=== PATIENT | female | born 1950 | race Caucasian/White ===

== ENCOUNTER 2018-07-14 05:06 | Inpatient (IN) | payer MEDICARE ==
--- NOTE | 2018-07-14 05:17 | ER Document Report ---
Doctor's Note Notes: 07/14/18 05:15 I performed a triage evaluation the patient. Patient is a 68-year-old female with some form of liver failure per report from paramedics who presents via EMS due to altered mental status. She is currently visiting from out of town. Family is on their way to the hospital currently. History is very limited as the patient is altered and will moan and sometimes yell but will not give me exact answers to my questions. She is lying on the bed with her eyes closed. She will sometimes push me away with her arms. She does not appear to have any pain when I palpate over her abdomen.'s are equal and reactive to light. Lung grimm are clear. This time of ordered blood work including ammonia level. I have ordered CT scan of the head. A voided urine testing as well as chest x-ray due to her altered mental status. Patient will be kept on potline monitor. Dictation of this chart was performed using voice recognition software; therefore, there may be some unintended grammatical errors.
[2018-07-14 05:47] LABS: ABSOLUTE EOSINOPHILS # (AUTO) 0.1 10^3/uL (0.0-0.6); ABSOLUTE LYMPHOCYTES (AUTO) 0.8 10^3/uL (0.5-4.7); ABSOLUTE MONOCYTES (AUTO) 0.4 10^3/uL (0.1-1.4); ABSOLUTE NEUT (AUTO) 2.1 10^3/uL (1.7-8.2); BASOPHILS % (AUTO) 0.4 % (0-2); EOSINOPHILS % (AUTO) 4.2 % (0-6); HEMATOCRIT 25.4 % (36.0-47.0); HEMOGLOBIN 8.4 g/dL (12.0-15.5); LYMPHOCYTES % (AUTO) 22.9 % (13-45); MEAN CORPUSCULAR HEMOGLOBIN 28.2 pg (27.0-33.4); MEAN CORPUSCULAR VOLUME 85 fl (80-97); MONOCYTES % (AUTO) 10.5 % (3-13); PLATELET COUNT 126 10^3/uL (150-450); RED BLOOD COUNT 2.98 10^6/uL (3.72-5.28); RED CELL DISTRIBUTION WIDTH 16.3 % (11.5-14.0); TOTAL CELLS COUNTED % (AUTO) 100 %; WHITE BLOOD COUNT 3.4 10^3/uL (4.0-10.5)
[2018-07-14 05:48] LABS: VENOUS BLOOD BASE EXCESS 3.2 mmol/L; VENOUS BLOOD HCO3 26.3 mmol/L (20-32); VENOUS BLOOD PCO2 34.2 mmHg (35-63); VENOUS BLOOD PH 7.5 (7.30-7.42)
[2018-07-14 06:00] LABS: INTERNATIONAL RATION (INR) 1.03; PROTHROMBIN TIME 14.1 SEC (11.4-15.4)
[2018-07-14 06:04] LABS: ALANINE AMINOTRANSFERASE 33 U/L (9-52); ALBUMIN 2.9 g/dL (3.5-5.0); ALKALINE PHOSPHATASE 144 U/L (38-126); ANION GAP 8 (5-19); ASPARTATE AMINO TRANSFERASE 30 U/L (14-36); BILIRUBIN,DIRECT 1.1 mg/dL (0.0-0.4); BILIRUBIN,TOTAL 1.7 mg/dL (0.2-1.3); BLOOD UREA NITROGEN 32 mg/dL (7-20); CALCIUM 9.3 mg/dL (8.4-10.2); CARBON DIOXIDE 26 mmol/L (22-30); CHLORIDE 107 mmol/L (98-107); GLUCOSE 161 mg/dL (75-110); POTASSIUM 4.4 mmol/L (3.6-5.0); SODIUM 141.4 mmol/L (137-145); TOTAL PROTEIN 6.4 g/dL (6.3-8.2)
[2018-07-14] MEDS ORDERED: LACTULOSE SYRUP 20 GM/30 ML UDCUP PR ONE (06:25)
[2018-07-14 07:16] LABS: APPEARANCE,URINE SLIGHTLY-CLOUDY; BILIRUBIN,URINE NEGATIVE (NEGATIVE); COLOR,URINE YELLOW; GLUCOSE, URINE NEGATIVE (NEGATIVE); KETONES,URINE NEGATIVE (NEGATIVE); LEUKOCYTE ESTERASE,URINE NEGATIVE (NEGATIVE); NITRITE,URINE NEGATIVE (NEGATIVE); PROTEIN,URINE NEGATIVE (NEGATIVE); URINE SPECIFIC GRAVITY 1.014; UROBILINOGEN,URINE NEGATIVE mg/dL (<2.0)
--- NOTE | 2018-07-14 07:16 | RADIOLOGY REPORT (SQ) ---
EXAM DESCRIPTION: CT HEAD WITHOUT IV CONTRAST COMPLETED DATE/TME: 07/14/2018 05:13 CLINICAL HISTORY: altered mental status COMPARISON: None available TECHNIQUE: Axial CT of the head obtained from the skull apex to the skull base without contrast. FINDINGS: No acute intracranial hemorrhage identified. No mass, mass effect, shift of the midline, abnormal extra-axial fluid collection or CT evidence of acute ischemic change identified. The ventricular system is not enlarged. Scattered areas of hypodensity throughout the supratentorial white matter are nonspecific and may be related to chronic small vessel ischemic change. Mucosal thickening of the right maxillary sinus. No skull fracture identified. Visualized orbits and globes are unremarkable. Atherosclerotic calcification of the intracranial internal carotid arteries. DLP: 937.36 mGy-cm IMPRESSION: 1. No acute intracranial abnormality by CT criteria. This exam was performed according to our departmental dose-optimization program, which includes automated exposure control, adjustment of the mA and/or kV according to patient size and/or use of iterative reconstruction technique.
--- NOTE | 2018-07-14 07:24 | RADIOLOGY REPORT (SQ) ---
EXAM DESCRIPTION: XR CHEST 1 VIEW COMPLETED DATE/TME: 07/14/2018 05:14 CLINICAL HISTORY: altered mental status COMPARISON: None. FINDINGS: Single frontal view of the chest. Cardiomediastinal silhouette: Normal size and contour. Lungs: Right basilar opacity and small right pleural effusion. Leads overlie the chest. No pneumothorax. Bones: No acute osseous abnormality. Upper abdomen: No abnormality identified. IMPRESSION: 1. Bibasilar airspace opacity concerning for pneumonia with small right pleural effusion.
[2018-07-14] MEDS ORDERED: CEFTRIAXONE 1 GM/D5W RTU 1 GM/50 ML RTUPB IV ONE (07:46)
[2018-07-14] MEDS ORDERED: AZITHROMYCIN INJ 500 MG VIAL IV ONE (07:46)
--- NOTE | 2018-07-14 08:10 | ER Document Report ---
ED General - General Chief Complaint: Unresponsive Stated Complaint: ALTERED MENTAL STATUS Time Seen by Provider: 07/14/18 05:13 TRAVEL OUTSIDE OF THE [place] IN LAST 30 DAYS: No - HPI Notes: Patient is a 68-year-old female with an extensive medical history, primary historians are her and son. Patient has had altered mental status and declined cognition over the last 3 days. She is denied any significant pain. Patient's states that he found boxes of protein bars, he believes that something is wrong with her liver as a result. He also notes that she is not always terribly compliant with taking her lactulose. He states that over the last 3 days he is given it to her personally, but cannot reliably tell me as to whether or not she was taking her medications as prescribed prior to this. No known fevers. She has been coughing. No other acute complaints or concerns. - Related Data Allergies/Adverse Reactions: No Known Allergies Allergy (Unverified 07/14/18 06:49) Past Medical History - General Information source: Relative - Social History Smoking Status: Never Smoker Chew tobacco use (# tins/day): No Frequency of alcohol use: None Drug Abuse: None Family History: Reviewed & Not Pertinent Patient has suicidal ideation: No Patient has homicidal ideation: No Pulmonary Medical History: Reports: Hx COPD Neurological Medical History: Reports: None Endocrine Medical History: Reports: Hx Diabetes Mellitus Type 2, Hx Hypothyroidism Renal/ Medical History: Denies: Hx Peritoneal Dialysis GI Medical History: Reports: Hx Cirrhosis, Hx Gastroesophageal Reflux Disease, Other - Esophageal varices Past Surgical History: Reports: Hx Section - x2, Hx Cholecystectomy, Hx Herniorrhaphy, Hx Hysterectomy, Other - Tips procedure Review of Systems - Review of Systems Constitutional: See HPI EENT: No symptoms reported Cardiovascular: No symptoms reported Respiratory: See HPI Gastrointestinal: No symptoms reported Genitourinary: No symptoms reported Musculoskeletal: No symptoms reported Skin: No symptoms reported Neurological/Psychological: See HPI Physical Exam - Vital signs Vitals: Pulse Ox 100 07/14/18 05:09 - Notes Notes: 68-year-old female, gaunt in appearance, no acute distress. Head is normocephalic and atraumatic. Pupils are equal, round, reactive to light. All mucosas moist. Heart is regular rate rhythm, lungs show diminished breath sounds at the bases bilaterally. Abdomen is soft, nontender, normal active bowel sounds. Extremities without cyanosis or clubbing. No posterior calf tenderness. She does have 1+ pitting pretibial edema. Patient is drowsy. She will open her eyes to loud verbal stimuli. She moves all 4 extremities spontaneously. No gross facial asymmetry. Course - Re-evaluation Re-evalutation: 07/14/18 08:09 Patient presents to the emergency department for evaluation. She is found to be initially hypothermic. He is placed on a bear hugger. Laboratory investigations were obtained. She is found to be pancytopenic, consistent with her cirrhotic history. Her creatinine is normal. Her ammonia level is signifi cantly elevated. She is given rectal lactulose here. Further work-up also revealed a pneumonia. Blood cultures were obtained. She was given Rocephin, Zithromax. I spoke with Dr. Rubi, will admit the patient for further care. - Vital Signs Vital signs: Temp Pulse Resp BP Pulse Ox 96.6 F L 13 101/43 L 99 07/14/18 07:01 07/14/18 07:01 07/14/18 07:00 07/14/18 07:01 - Laboratory Result Diagrams: 07/14/18 05:20 07/14/18 05:20 Laboratory results interpreted by me: 07/14/18 07/14/18 07/14/18 05:20 05:20 05:20 WBC 3.4 L RBC 2.98 L Hgb 8.4 L Hct 25.4 L RDW 16.3 H Plt Count 126 L VBG pH VBG pCO2 BUN 32 H Est GFR (Non-Af Amer) 53 L Glucose 161 H Total Bilirubin 1.7 H Direct Bilirubin 1.1 H Alkaline Phosphatase 144 H Ammonia 166.1 H Albumin 2.9 L Urine Ascorbic Acid 07/14/18 07/14/18 05:20 05:20 WBC RBC Hgb Hct RDW Plt Count VBG pH 7.50 H VBG pCO2 34.2 L BUN Est GFR (Non-Af Amer) Glucose Total Bilirubin Direct Bilirubin Alkaline Phosphatase Ammonia Albumin Urine Ascorbic Acid 20 H - Diagnostic Test Radiology reviewed: Reports reviewed Radiology results interpreted by me: 07/14/18 08:[address] 07/14/18 05:13 IMPRESSION: 1. No acute intracranial abnormality by CT criteria. This exam was performed according to our departmental dose-optimization program, which includes automated exposure control, adjustment of the mA and/or kV according to patient size and/or use of iterative reconstruction technique. Chest X-Ray 07/14/18 05:14 IMPRESSION: 1. Bibasilar airspace opacity concerning for pneumonia with small right pleural effusion. - EKG Interpretation by Me Additional EKG results interpreted by me: 07/14/18 08:10 Sinus mechanism with a rate of 87 bpm. Left axis deviation. Borderline prolon ged QT interval. Nonspecific ST changes, but no acute changes concerning for ischemia or infarction. No old studies available for comparison. Discharge - Discharge Clinical Impression: Hepatic encephalopathy Hypothermia Qualifiers: Encounter type: initial encounter Qualified Code(s): T68.XXXA - Hypothermia, initial encounter Bilateral pneumonia Qualifiers: Aspiration pneumonia type: unspecified Lung location: lower lobe of lung Condition: Stable Disposition: ADMITTED INPATIENT Admitting Provider: Greyson (Hospitalist) Unit Admitted: [facility]
--- NOTE | 2018-07-14 08:57 | EKG REPORT ---
SEVERITY:- BORDERLINE ECG - SINUS RHYTHM BORDERLINE LEFT AXIS DEVIATION BORDERLINE PROLONGED QT INTERVAL : Confirmed by: Chele Simmons MD 14-Jul-2018 08:56:56
[2018-07-14] MEDS ORDERED: DEXTROSE 40% GEL 15 GM TUBE PO PRN ×2 (09:50)
[2018-07-14] MEDS ORDERED: RINGERS SOLUTION,LACTATED 1,000 ML IV PRN (09:50)
[2018-07-14] MEDS ORDERED: DEXTROSE 50%-WATER 25 GM/50 ML DISP.SYRIN IV PRN ×2 (09:50)
[2018-07-14] MEDS ORDERED: GLUCAGON,HUMAN RECOMB 1 MG INJ SUBCUT PRN (09:50)
--- NOTE | 2018-07-14 10:09 | PDOC H&P ---
History of Present Illness Admission Date/PCP: 07/14/18 08:23 LACEY THOMAS MD History of Present Illness: MAURA CHRIS is a 68 year old female with a history of cirrhosis which her is said to be due to her diabetes who comes in with a 1 to 2-day history of worsening encephalopathy. All of the history is obtained from her . The patient was too encephalopathic to get any history from her. She is supposed to be moderating her protein intake, but apparently she managed to get her hands on some protein bars and has been eating them at her own discretion. Her s ays that she has been taking her lactulose as prescribed, but that she has been in the hospital 5 or 6 times before with hepatic encephalopathy, and she often has been noncompliant regarding her lactulose intake. The ER provider recorded a cough, but the denies that she is had any respiratory complaints whatsoever. She has not had a fever. She has not had any shortness of breath. Her says that she gets fluid overloaded very easily and has to take Lasix. He says she has not been showing any signs of fluid overload lately. She was found to have an ammonia level of 166. Her says that when she gets above 90 she seems to have worsening mental status. He also reports that she has a history of varices and if had multiple banding procedures, and had a TIPS procedure. They moved here recently from [place] to be closer to [facility]. Past Medical History Cardiac Medical History: Reports: Hypertension Pulmonary Medical History: Reports: Chronic Obstructive Pulmonary Disease (COPD) Neurological Medical History: Reports: None Endocrine Medical History: Reports: Diabetes Mellitus Type 2, Hypothyroidism GI Medical History: Reports: Cirrhosis, Gastroesophageal Reflux Disease, Other - Esophageal varices Hematology: Reports: Anemia Past Surgical History Past Surgical History: Reports: Section - x2, Cholecystectomy, Herniorrhaphy, Hysterectomy, Other - Tips procedure Social History Smoking Status: Never Smoker Family History Family History: Reviewed & Not Pertinent Parental Family History Reviewed: Yes - Diabetes Children Family History Reviewed: Yes - None known Sibling(s) Family History Reviewed.: Yes - None known Medication/Allergy Allergies/Adverse Reactions: No Known Allergies Allergy (Unverified 07/14/18 06:49) Review of Systems ROS unobtainable: Due to mental status Physical Exam Vital Signs: Temp Pulse Resp BP Pulse Ox 98.0 F 18 112/51 L 95 07/14/18 09:01 07/14/18 09:01 07/14/18 09:00 07/14/18 09:01 Intake & Output 07/13/18 07/14/18 07/15/18 06:59 06:59 06:59 Intake Total 50 Balance 50 Weight 54.431 kg General appearance: PRESENT: disheveled, severe distress, other - fetor hepaticus Head exam: PRESENT: atraumatic, normocephalic Eye exam: PRESENT: PERRLA - Sluggish. ABSENT: conjunctival injection, nystagmus, scleral icterus Ear exam: PRESENT: normal external ear exam Mouth exam: PRESENT: dry mucosa, neck supple Neck exam: PRESENT: full ROM. ABSENT: carotid bruit, JVD, lymphadenopathy, meningismus, tenderness, thyromegaly Respiratory exam: PRESENT: clear to auscultation josh, symmetrical, unlabored. ABSENT: accessory muscle use, chest wall tenderness, crackles, prolonged expiratory phas, rhonchi, tachypnea, wheezes Cardiovascular exam: PRESENT: RRR, +S1, +S2. ABSENT: diastolic murmur, systolic murmur Pulses: PRESENT: normal carotid pulses Vascular exam: PRESENT: normal capillary refill GI/Abdominal exam: PRESENT: normal bowel sounds, soft. ABSENT: ascites, distended, guarding, rebound, tenderness Extremities exam: ABSENT: clubbing, pedal edema Musculoskeletal exam: PRESENT: normal inspection. ABSENT: deformity Neurological exam: PRESENT: altered, other - Moves all of her extremities independently, does not follow commands Skin exam: PRESENT: dry - A lot of dry flaky skin especially on the lower extremities, warm Results Laboratory Results: 07/14/18 05:20 07/14/18 05:20 07/14/18 07/14/18 07/14/18 05:20 05:20 05:20 WBC 3.4 L RBC 2.98 L Hgb 8.4 L Hct 25.4 L MCV 85 MCH 28.2 MCHC 33.0 RDW 16.3 H Plt Count 126 L Seg Neutrophils % 62.0 Lymphocytes % 22.9 Monocytes % 10.5 Eosinophils % 4.2 Basophils % 0.4 Absolute Neutrophils 2.1 Absolute Lymphocytes 0.8 Absolute Monocytes 0.4 Absolute Eosinophils 0.1 Absolute Basophils 0.0 VBG pH VBG pCO2 VBG HCO3 VBG Base Excess Sodium 141.4 Potassium 4.4 Chloride 107 Carbon Dioxide 26 Anion Gap 8 BUN 32 H Creatinine 1.03 Est GFR ( Amer) > 60 Est GFR (Non-Af Amer) 53 L Glucose 161 H Calcium 9.3 Total Bilirubin 1.7 H AST 30 ALT 33 Alkaline Phosphatase 144 H Ammonia 166.1 H Total Protein 6.4 Albumin 2.9 L Urine Color Urine Appearance Urine pH Ur Specific [place] Urine Protein Urine Glucose (UA) Urine Ketones Urine Blood Urine Nitrite Ur Leukocyte Esterase Urine WBC (Auto) Urine RBC (Auto) 07/14/18 07/14/18 05:20 05:20 WBC RBC Hgb Hct MCV MCH MCHC RDW Plt Count Seg Neutrophils % Lymphocytes % Monocytes % Eosinophils % Basophils % Absolute Neutrophils Absolute Lymphocytes Absolute Monocytes Absolute Eosinophils Absolute Basophils VBG pH 7.50 H VBG pCO2 34.2 L VBG HCO3 26.3 VBG Base Excess 3.2 Sodium Potassium Chloride Carbon Dioxide Anion Gap BUN Creatinine Est GFR ( Amer) Est GFR (Non-Af Amer) Glucose Calcium Total Bilirubin AST ALT Alkaline Phosphatase Ammonia Total Protein Albumin Urine Color YELLOW Urine Appearance SLIGHTLY-CLOUDY Urine pH 8.0 Ur Specific [place] 1.014 Urine Protein NEGATIVE Urine Glucose (UA) NEGATIVE Urine Ketones NEGATIVE Urine Blood NEGATIVE Urine Nitrite NEGATIVE Ur Leukocyte Esterase NEGATIVE Urine WBC (Auto) 12 Urine RBC (Auto) 0 Impressions: Head CT 07/14/18 05:13 IMPRESSION: 1. No acute intracranial abnormality by CT criteria. This exam was performed according to our departmental dose-optimization program, which includes automated exposure control, adjustment of the mA and/or kV according to patient size and/or use of iterative reconstruction technique. Chest X-Ray 07/14/18 05:14 IMPRESSION: 1. Bibasilar airspace opacity concerning for pneumonia with small right pleural effusion. Assessment and Plan - Diagnosis (1) Hepatic encephalopathy Is this a current diagnosis for this admission?: Yes Plan: Because she cannot reliably take p.o. at this time, will get a have to do lactulose enemas until such time she can tolerate p.o. At that time we will transition her to oral lactulose. Neurological checks to monitor her mental status. We will going to try to get her home medications entered and so that we can get them ordered., Keep her n.p.o. for now and give her some cautious IV hydration, just enough for maintenance and will monitor her volume status closely. She was reported as having pneumonia in the ER but I doubt that this is actually the case. She was given some antibiotics which I am not going to continue at this time. We will monitor her for signs of infection. She was also reported as being hypothermic, but her body temperature has been between 96 and 98 F, which I would not exactly call hypothermic, but we will monitor this. She has a Mckenzie catheter in with a temperature probe. - Time Time Spent with patient: 70 minutes Time Spent with patient: 35 or more minutes - Inpatient Certification Based on my medical assessment, after consideration of the patient's comorbidities, presenting symptoms, or acuity I expect that the services needed warrant INPATIENT care.: Yes I certify that my determination is in accordance with my understanding of Medicare's requirements for reasonable and necessary INPATIENT services [42 CFR 412.3e].: Yes Medical Necessity: Need Close Monitoring Due to Risk of Patient Decompensation, Need For Continuous Telemetry Monitoring, Need for Neurological Checks, Risk of Complication if Not Cared For in Hospital
[2018-07-14] MEDS: LACTULOSE SYRUP 20 GM/30 ML UDCUP PR SCH ×4 (13:00→21:15)
[2018-07-14] MEDS ORDERED: LACTULOSE SYRUP 20 GM/30 ML UDCUP ONE ×2 (17:58)
[2018-07-15] MEDS: LACTULOSE SYRUP 20 GM/30 ML UDCUP PR SCH ×2 (02:02→05:27)
[2018-07-15 05:30] LABS: ANION GAP 6 (5-19); BLOOD UREA NITROGEN 27 mg/dL (7-20); CALCIUM 8.7 mg/dL (8.4-10.2); CARBON DIOXIDE 23 mmol/L (22-30); CHLORIDE 113 mmol/L (98-107); GLUCOSE 118 mg/dL (75-110); POTASSIUM 4.1 mmol/L (3.6-5.0); SODIUM 142.3 mmol/L (137-145)
[2018-07-15] MEDS ORDERED: LACTULOSE SYRUP 20 GM/30 ML UDCUP PO PRN (08:46)
[2018-07-15] MEDS ORDERED: (PENDING PHARMACY ID) (Levothyroxine Sodium [Levothyroxine Sodium] 137 MCG) PO SCH (10:45)
[2018-07-15] MEDS ORDERED: RIFAXIMIN 550 MG TABLET PO SCH (10:45)
[2018-07-15] MEDS ORDERED: (PENDING PHARMACY ID) (Spironolactone [Aldactone] 50 MG) PO SCH (10:45)
[2018-07-15] MEDS ORDERED: PANTOPRAZOLE SODIUM 40 MG TABLET.DR PO SCH (11:00)
[2018-07-15] MEDS ORDERED: URSODIOL 300 MG CAPSULE PO SCH (11:30)
[2018-07-15] MEDS ORDERED: POTASSIUM CHLORIDE 10 MEQ CAPSULE.ER PO SCH (12:00)
[2018-07-15] MEDS ORDERED: SPIRONOLACTONE 25 MG TABLET PO SCH (12:00)
[2018-07-15] MEDS ORDERED: LEVOTHYROXINE SODIUM 0.025 MG TABLET PO SCH (12:00)
--- NOTE | 2018-07-15 13:40 | PDOC DISCHARGE SUMMARY ---
General - Admit/Disc Date/PCP Admission Date/Primary Care Provider: 07/14/18 08:23 LACEY THOMAS MD Discharge Date: 07/15/18 - Discharge Diagnosis (1) Hepatic encephalopathy Is this a current diagnosis for this admission?: Yes (2) Increased ammonia level Is this a current diagnosis for this admission?: Yes - Additional Information Resuscitation Status: Full Code Discharge Diet: As Tolerated Discharge Activity: Activity As Tolerated Home Medications: RX: Furosemide [Lasix 40 mg Tablet] 40 mg PO DAILY 07/14/18 RX: Insulin Aspart [Novolog Flexpen] 20 unit SQ Q8 07/14/18 RX: Insulin Degludec [Tresiba Flextouch U-200] 15 unit SQ BID 07/14/18 RX: Lactulose [Constulose 10 gm/15 mL Oral Solution] 30 ml PO TID 07/14/18 RX: Levothyroxine Sodium 137 mcg PO Q6AM 07/14/18 RX: Pantoprazole Sodium [Protonix] 40 mg PO DAILY 07/14/18 RX: Potassium Chloride 20 meq PO DAILY 07/14/18 RX: Rifaximin [Xifaxan 550 mg Tablet] 550 mg PO BID 07/14/18 RX: Spironolactone [Aldactone] 50 mg PO DAILY 07/14/18 RX: Ursodiol [Actigall 300 mg Capsule] 300 mg PO Q8 07/14/18 RX: Glucagon,Human Recombinant [Glucagen Inj 1 mg Vial] 1 mg SUBCUT PRN PRN vial 07/15/18 History of Present Illness History of Present Illness: MAURA CHRIS is a 68 year old female with a history of cirrhosis which her is said to be due to her diabetes who comes in with a 1 to 2-day history of worsening encephalopathy. All of the history is obtained from her . The patient was too encephalopathic to get any history from her. She is supposed to be moderating her protein intake, but apparently she managed to get her hands on some protein bars and has been eating them at her own discretion. Her says that she has been taking her lactulose as prescribed, but that she has been in the hospital 5 or 6 times before with hepatic encephalopathy, and she often has been noncompliant regarding her lactulose intake. The ER provider recorded a cough, but the denies that she is had any respiratory complaints whatsoever. She has not had a fever. She has not had any shortness of breath. Her says that she gets fluid overloaded very easily and has to take Lasix. He says she has not been showing any signs of fluid overload lately. She was found to have an ammonia level of 166. Her says that when she gets above 90 she seems to have worsening mental status. He also reports that she has a history of varices and if had multiple banding procedures, and had a TIPS procedure. They moved here recently from [place] to be closer to family. Hospital Course Hospital Course: MAURA CHRIS is a 68 year old female with a history of cirrhosis and diabetes was admitted to [facility] for hepatic encephalopathy. According to the patient's , she typically beings to experience AMS when her ammonia climbs above 90. Upon admission, her ammonia was 166. The states she has been eating a bunch of protein bars recently, which could explain her elevated ammonia. The patient was too obtunded to take PO so she was given lactulose enemas through a rectal tube. The following day her ammonia decreased to 40, she was awake, oriented x 3, able to ambulate without difficulty and tolerate food. Her rectal tube was discontinued and the patient was resumed on her home dose of PO lactulose. The patient's vital signs were stable and her lab work on hospital day #2 was relatively benign. The patient was deemed safe for discharge. She was instructed to eat a regular diet (within her prescribed guidelines) and to stop eating protein bars. For further information regarding this patient's hospitalization, please refer to the EMR. Physical Exam Vital Signs: Temp Pulse Resp BP Pulse Ox 98.7 F 84 14 113/49 L 97 07/15/18 03:57 07/15/18 07:00 07/15/18 03:57 07/15/18 03:57 07/15/18 03:57 Intake & Output 07/14/18 07/15/18 07/16/18 06:59 06:59 06:59 Intake Total 50 1000 Output Total 1875 Balance -1825 1000 Weight 54.431 kg 59.6 kg General appearance: PRESENT: thin Eye exam: PRESENT: conjunctiva pink, PERRLA Ear exam: PRESENT: normal external ear exam Mouth exam: PRESENT: moist, tongue midline Teeth exam: PRESENT: poor dentation Neck exam: PRESENT: full ROM Respiratory exam: PRESENT: clear to auscultation josh, symmetrical, unlabored Cardiovascular exam: PRESENT: RRR Pulses: PRESENT: normal radial pulses, +1 pedal pulses bilateral Vascular exam: PRESENT: pallor GI/Abdominal exam: PRESENT: distended, hyperactive bowel sounds, soft. ABSENT: tenderness Rectal exam: PRESENT: deferred Extremities exam: PRESENT: full ROM. ABSENT: pedal edema Musculoskeletal exam: PRESENT: ambulatory, full ROM Neurological exam: PRESENT: alert, awake, oriented to person, oriented to place, oriented to time, oriented to situation Psychiatric exam: PRESENT: appropriate affect Skin exam: PRESENT: dry, intact, pallor Results Laboratory Results: 07/14/18 05:20 07/15/18 04:51 07/15/18 07/15/18 04:51 04:51 Sodium 142.3 Potassium 4.1 Chloride 113 H Carbon Dioxide 23 Anion Gap 6 BUN 27 H Creatinine 1.00 Est GFR ( Amer) > 60 Est GFR (Non-Af Amer) 55 L Glucose 118 H Calcium 8.7 Ammonia 40.8 H Impressions: Head CT 07/14/18 05:13 IMPRESSION: 1. No acute intracranial abnormality by CT criteria. This exam was performed according to our departmental dose-optimization program, which includes automated exposure control, adjustment of the mA and/or kV according to patient size and/or use of iterative reconstruction technique. Chest X-Ray 07/14/18 05:14 IMPRESSION: 1. Bibasilar airspace opacity concerning for pneumonia with small right pleural effusion. Status: Imported from PACS Qualifiers - * PATIENT BEING DISCHARGED WITH ANY OF THE FOLLOWING DIAGNOSIS: No Acute Heart Failure Is this a Heart Failure Patient?: Yes Plan Time Spent: Less than 30 Minutes
[2018-07-15] MEDS ORDERED: LACTULOSE SYRUP 20 GM/30 ML UDCUP PO SCH (14:00)
[2018-07-15 14:18] VITALS: BP 105/43
[2018-07-16] MEDS ORDERED: LEVOTHYROXINE SODIUM 0.112 MG TABLET PO SCH (06:00)
== END 2018-07-15 14:40 | disposition home or self-care (01) | DRG 443 ==
LOC: ER 05:06 → EH 08:23 → 3W 10:39
PROVIDERS: ADMIT Family Medicine; ATTEND Family Medicine
DX: K72.90 Hepatic failure, unspecified without coma (principal); E11.9 Type 2 diabetes mellitus without complications; I10 Essential (primary) hypertension; J44.9 Chronic obstructive pulmonary disease, unspecified; E03.9 Hypothyroidism, unspecified; K21.9 Gastro-esophageal reflux disease without esophagitis; D64.9 Anemia, unspecified; Z79.899 Other long term (current) drug therapy; Z91.19 Patient's noncompliance with other medical treatment and regimen; Z90.49 Acquired absence of other specified parts of digestive tract; Z90.710 Acquired absence of both cervix and uterus; Z83.3 Family history of diabetes mellitus
CPT/HCPCS: 36415; 51702; 70450; 71045; 80048; 80053; 81001; 82140; 82803; 82962; 85025; 85610; 87040; 93005; 93010; 99285; A9270-GY; J0456; J0696; J3490; J7120

== ENCOUNTER → 2018-07-23 | Outpatient (CLI) | payer MEDICARE ==
[2018-07-23 09:24] LABS: ABSOLUTE EOSINOPHILS # (AUTO) 0.2 10^3/uL (0.0-0.6); ABSOLUTE LYMPHOCYTES (AUTO) 0.6 10^3/uL (0.5-4.7); ABSOLUTE MONOCYTES (AUTO) 0.3 10^3/uL (0.1-1.4); ABSOLUTE NEUT (AUTO) 1.7 10^3/uL (1.7-8.2); EOSINOPHILS % (AUTO) 6.7 % (0-6); HEMATOCRIT 24.1 % (36.0-47.0); LYMPHOCYTES % (AUTO) 21.5 % (13-45); MEAN CORPUSCULAR HEMOGLOBIN 26.7 pg (27.0-33.4); MEAN CORPUSCULAR VOLUME 84 fl (80-97); MONOCYTES % (AUTO) 9.9 % (3-13); PLATELET COUNT 115 10^3/uL (150-450); RED BLOOD COUNT 2.88 10^6/uL (3.72-5.28); RED CELL DISTRIBUTION WIDTH 17.1 % (11.5-14.0); SEGMENTED NEUTROPHILS % (AUTO) 60.9 % (42-78); TOTAL CELLS COUNTED % (AUTO) 100 %; WHITE BLOOD COUNT 2.7 10^3/uL (4.0-10.5)
[2018-07-23 09:28] LABS: HEMOGLOBIN 7.7 g/dL (12.0-15.5)
[2018-07-23 09:47] LABS: ALANINE AMINOTRANSFERASE 28 U/L (9-52); ALBUMIN 3.1 g/dL (3.5-5.0); ALKALINE PHOSPHATASE 149 U/L (38-126); ANION GAP 12 (5-19); ASPARTATE AMINO TRANSFERASE 28 U/L (14-36); BILIRUBIN,DIRECT 1.1 mg/dL (0.0-0.4); BILIRUBIN,TOTAL 1.7 mg/dL (0.2-1.3); BLOOD UREA NITROGEN 34 mg/dL (7-20); CALCIUM 8.6 mg/dL (8.4-10.2); CARBON DIOXIDE 23 mmol/L (22-30); CHLORIDE 99 mmol/L (98-107); CHOLESTEROL 146.58 mg/dL (0-200); GLUCOSE 341 mg/dL (75-110); POTASSIUM 4.4 mmol/L (3.6-5.0); SODIUM 134.3 mmol/L (137-145); TOTAL PROTEIN 6.3 g/dL (6.3-8.2); TRIGLYCERIDES 89 mg/dL (<150)
[2018-07-23 09:58] LABS: DIRECT LDL 108 mg/dL (<100)
[2018-07-24 12:37] LABS: CREATININE URINE 58.5 mg/dL (Not Estab.); MICROALBUMIN URINE 7.8 ug/mL (Not Estab.)
== END ==
LOC: OD 08:29
PROVIDERS: ATTEND Family Medicine Geriatric Medicine
DX: E03.9 Hypothyroidism, unspecified (principal); K72.90 Hepatic failure, unspecified without coma; E55.9 Vitamin D deficiency, unspecified; Z79.899 Other long term (current) drug therapy; K74.69 Other cirrhosis of liver
CPT/HCPCS: 36415; 80053; 80061; 82043; 82140; 82306; 82570; 82607; 83036; 83735; 84443; 85025

== ENCOUNTER 2018-09-11 12:47 | Emergency (ER) | payer MEDICARE ==
--- NOTE | 2018-09-11 13:10 | ER Document Report ---
ED Medical Screen (RME) - General Chief Complaint: Abnormal Lab Results Stated Complaint: ABNORMAL LABS Time Seen by Provider: 09/11/18 13:02 Primary Care Provider: LACEY LOZA MD [Primary Care Provider] - Follow up as needed Mode of Arrival: Wheelchair Information source: Patient Notes: Patient is a 68-year-old female presented to the emergency department from Dr. Loza's office with complaints of low hemoglobin and elevated ammonia levels. Patient also reports increased weight gain lately and shortness of breath with any exertion. She does have a history of CHF. She also reports swelling in her legs is worse than usual. Her reports she has been on and off of Lasix, states that the Lasix has started to affect her kidneys so they have been lo wering her dose however he thinks she is not taking enough. Exam: Lung sounds clear and equal bilaterally. Patient alert, oriented, answering all questions and in no acute distress. 3+ pitting edema to bilateral lower extremities with weeping. I have greeted and performed a rapid initial assessment of this patient. A comprehensive ED assessment and evaluation of the patient, analysis of test re sults and completion of the medical decision making process will be conducted by additional ED providers. I have specifically instructed the patient or family members with the patient to immediately return to any nursing staff should anything change in the patient's condition or with their chief complaint. This medical record was dictated with voice recognizing software. There may be grammatical, syntax errors that are unintended. TRAVEL OUTSIDE OF THE [place] IN LAST 30 DAYS: No - Related Data Allergies/Adverse Reactions: No Known Allergies Allergy (Verified 09/11/18 12:48) Past Medical History - Social History Chew tobacco use (# tins/day): No Frequency of alcohol use: None Drug Abuse: None - Past Medical History Cardiac Medical History: Reports: Hx Congestive Heart Failure, Hx Hypertension Pulmonary Medical History: Reports: Hx COPD Endocrine Medical History: Reports: Hx Diabetes Mellitus Type 1, Hx Diabetes Mellitus Type 2, Hx Hypothyroidism Renal/ Medical History: Denies: Hx Peritoneal Dialysis GI Medical History: Reports: Hx Cirrhosis, Hx Gastroesophageal Reflux Disease Psychiatric Medical History: Denies: Hx Depression Past Surgical History: Reports: Hx Abdominal Surgery - hernia repair, Hx Ce sarean Section - x2, Hx Cholecystectomy, Hx Herniorrhaphy, Hx Hysterectomy, Hx Orthopedic Surgery, Other - Tips procedure Physical Exam - Vital signs Vitals: Pulse Resp BP Pulse Ox 80 18 101/41 L 98 09/11/18 12:53 09/11/18 12:53 09/11/18 12:53 09/11/18 12:53 Course - Vital Signs Vital signs: Temp Pulse Resp BP Pulse Ox 80 18 101/41 L 98 09/11/18 12:53 09/11/18 12:53 09/11/18 12:53 09/11/18 12:53 Doctor's Discharge - Discharge Referrals: LACEY LOZA MD [Primary Care Provider] - Follow up as needed
[2018-09-11 13:42] LABS: ABSOLUTE EOSINOPHILS # (AUTO) 0.1 10^3/uL (0.0-0.6); ABSOLUTE LYMPHOCYTES (AUTO) 0.6 10^3/uL (0.5-4.7); ABSOLUTE MONOCYTES (AUTO) 0.3 10^3/uL (0.1-1.4); BASOPHILS % (AUTO) 0.5 % (0-2); EOSINOPHILS % (AUTO) 4.1 % (0-6); LYMPHOCYTES % (AUTO) 18.4 % (13-45); MEAN CORPUSCULAR HEMOGLOBIN 20.1 pg (27.0-33.4); MEAN CORPUSCULAR HGB CONC 28.9 g/dL (32.0-36.0); MEAN CORPUSCULAR VOLUME 70 fl (80-97); MONOCYTES % (AUTO) 10.2 % (3-13); PLATELET COUNT 108 10^3/uL (150-450); RED BLOOD COUNT 2.88 10^6/uL (3.72-5.28); RED CELL DISTRIBUTION WIDTH 23.1 % (11.5-14.0); SEGMENTED NEUTROPHILS % (AUTO) 66.8 % (42-78); TOTAL CELLS COUNTED % (AUTO) 100 %
[2018-09-11 13:46] LABS: HEMOGLOBIN 5.8 g/dL (12.0-15.5)
--- NOTE | 2018-09-11 13:50 | RADIOLOGY REPORT (SQ) ---
EXAM DESCRIPTION: CHEST SINGLE VIEW COMPLETED DATE/TIME: 09/11/2018 1:37 pm REASON FOR STUDY: shortness of breath hx of chf COMPARISON: 07/14/2018 EXAM PARAMETERS: NUMBER OF VIEWS: One view. TECHNIQUE: Single frontal radiographic view of the chest acquired. RADIATION DOSE: NA LIMITATIONS: None. FINDINGS: LUNGS AND PLEURA: Interval increase in a now moderate right pleural effusion and associate d atelectasis or consolidation. MEDIASTINUM AND HILAR STRUCTURES: No masses. Contour normal. HEART AND VASCULAR STRUCTURES: Cardiomegaly. BONES: No acute findings. HARDWARE: None in the chest. OTHER: No other significant finding. IMPRESSION: Interval increase in a now moderate right pleural effusion and associated atelectasis or consolidation. Consider CT to further evaluate. Underlying mass is not excluded. Cardiomegaly. TECHNICAL DOCUMENTATION: JOB ID: [id number] [employer]- All Rights Reserved Reading location - IP/workstation name: [email or web address]
[2018-09-11 14:00] LABS: ALANINE AMINOTRANSFERASE 25 U/L (9-52); ALBUMIN 2.8 g/dL (3.5-5.0); ALKALINE PHOSPHATASE 135 U/L (38-126); ANION GAP 11 (5-19); ASPARTATE AMINO TRANSFERASE 30 U/L (14-36); BILIRUBIN,DIRECT 1.4 mg/dL (0.0-0.4); BILIRUBIN,TOTAL 1.9 mg/dL (0.2-1.3); BLOOD UREA NITROGEN 47 mg/dL (7-20); CALCIUM 8.5 mg/dL (8.4-10.2); CARBON DIOXIDE 21 mmol/L (22-30); CHLORIDE 101 mmol/L (98-107); GLUCOSE 238 mg/dL (75-110); POTASSIUM 4.4 mmol/L (3.6-5.0); SODIUM 133.4 mmol/L (137-145); TOTAL PROTEIN 6.3 g/dL (6.3-8.2)
[2018-09-11 14:11] LABS: NT PRO BNP 3010 pg/mL (5-900)
[2018-09-11] MEDS ORDERED: NORMAL SALINE 250 ML IV PRN (14:12)
[2018-09-11 14:14] LABS: TROPONIN I < 0.012 ng/mL
[2018-09-11] MEDS ORDERED: ONDANSETRON HCL INJ/PF 4 MG/2 ML SDV IV ONE (15:59)
[2018-09-11] MEDS ORDERED: PANTOPRAZOLE SODIUM 40 MG VIAL IV ONE (15:59)
[2018-09-11] MEDS ORDERED: LACTULOSE SYRUP 20 GM/30 ML UDCUP PO ONE (16:48)
[2018-09-11] MEDS: PANTOPRAZOLE SODIUM 40 MG VIAL IV PRN (16:57)
--- NOTE | 2018-09-11 18:56 | EKG REPORT ---
SEVERITY:- BORDERLINE ECG - SINUS RHYTHM VENTRICULAR PREMATURE COMPLEX LOW VOLTAGE THROUGHOUT BORDERLINE PROLONGED QT INTERVAL : Confirmed by: Chele Simmons MD 11-Sep-2018 18:55:40
--- NOTE | 2018-09-11 19:12 | ER Document Report ---
ED General <RADHA CARDENAS - Last Filed: 09/12/18 07:52> - General Mode of Arrival: Wheelchair Information source: Patient TRAVEL OUTSIDE OF THE [place] IN LAST 30 DAYS: No - HPI Onset: This morning Onset/Duration: Gradual Quality of pain: No pain Associated symptoms: Nonproductive cough, Shortness of breath. denies: Chest pain, Chills, Productive cough, Diarrhea, Fever, Headache, Nausea, Vomiting Exacerbated by: Denies Relieved by: Denies Similar symptoms previously: Yes Recently seen / treated by doctor: Yes <THANG,REVA - Last Filed: 09/12/18 15:21> - General Chief Complaint: Abnormal Lab Results Stated Complaint: ABNORMAL LABS Time Seen by Provider: 09/11/18 13:02 Primary Care Provider: LACEY THOMAS MD [Primary Care Provider] - Follow up as needed Notes: Patient presents with the complaint of abnormal labs including a low hemoglobin. Patient states she was having routine outpatient lab work performed by her primary doctor and was notified that her hemoglobin was 5. Patient denies any chest pain abdominal pain nausea or vomiting. Patient denies any lightheadedness or dizziness. Patient does state that she has a chronic cough and that she has had this for several years and is not any different. Patient states that she did have some mild shortness of breath. Patient also reports that she had a nosebleed 2 days ago in which it saturated her pillow and a part of her bed sheet. Patient states that she has not had any nasal congestion or n franky bleeding since that episode. Patient does report a history of cirrhosis with esophageal varices and she has had multiple banding procedures and then had a TIPS procedure. Patient denies any vaginal bleeding, rectal bleeding or hematemesis. Patient states that her last colonoscopy was 4 years ago and they did not find anything acute. Patient states that she had an EGD performed 5 days ago which did not show anything acute. Patient states that she has had a chronic slow bleed that her specialist have been unable to locate the source of the bleeding. Patient states that her hemoglobin has chronically been low but typically runs in the 7-8 range. Patient's at bedside states that patient has not had any confusion symptoms. Patient spouse states that patient is occasionally noncompliant with her lactulose. Patient has not had any of her lactulose today due to going to the doctor's office and having labs drawn. (REVA REID) - Related Data Allergies/Adverse Reactions: No Known Allergies Allergy (Verified 09/11/18 12:48) Past Medical History - General Information source: Patient - Social History Smoking Status: Never Smoker Chew tobacco use (# tins/day): No Frequency of alcohol use: None Drug Abuse: None Lives with: Spouse/Significant other Family History: Reviewed & Not Pertinent Patient has suicidal ideation: No Patient has homicidal ideation: No - Past Medical History Cardiac Medical History: Reports: Hx Congestive Heart Failure, Hx Hypertension Pulmonary Medical History: Reports: Hx COPD Endocrine Medical History: Reports: Hx Diabetes Mellitus Type 1, Hx Hypothyroidism Renal/ Medical History: Denies: Hx Peritoneal Dialysis GI Medical History: Reports: Hx Cirrhosis, Hx Gastroesophageal Reflux Disease Psychiatric Medical History: Denies: Hx Depression Past Surgical History: Reports: Hx Abdominal Surgery - hernia repair, Hx Section - x2, Hx Cholecystectomy, Hx Herniorrhaphy, Hx Hysterectomy, Hx Orthopedic Surgery, Other - Tips procedure <REVA REID - Last Filed: 09/12/18 15:21> Review of Systems - Review of Systems Constitutional: No symptoms reported. denies: Fever, Recent illness EENT: Other - Nosebleed 2 days ago, none since then Cardiovascular: No symptoms reported. denies: Chest pain, Palpitations, Dizziness, Lightheaded Respiratory: Cough - Chronic cough, Short of breath. denies: Hurts to breathe Gastrointestinal: No symptoms reported. denies: Abdominal pain, Diarrhea, Nausea, Vomiting, Blood in vomit, Black stools, Rectal bleeding Genitourinary: No symptoms reported. denies: Hematuria Female Genitourinary: No symptoms reported Musculoskeletal: No symptoms reported. denies: Back pain Skin: No symptoms reported Hematologic/Lymphatic: No symptoms reported Neurological/Psychological: No symptoms reported. denies: Confusion, Weakness, Headaches <REVA REID - Last Filed: 09/12/18 15:21> Physical Exam - General General appearance: Alert In distress: Mild - HEENT Head: Normocephalic, Atraumatic Eyes: Normal Conjunctiva: Normal. No: Icteric Sinus: Normal Nasal: Normal Mouth/Lips: Normal Mucous membranes: Normal Pharynx: Normal Neck: Normal, Supple. No: Lymphadenopathy - Respiratory Respiratory status: No respiratory distress Chest status: Nontender Breath sounds: Rales - Fine rales to bilateral lower bases. No: Rhonchi, Stridor, Wheezing Chest palpation: Normal - Cardiovascular Rhythm: Regular Heart sounds: S1 appreciated, S2 appreciated - Abdominal Distension: Distended Bowel sounds: Normal Tenderness: Nontender Organomegaly: No organomegaly - Back Back: Normal, Nontender. No: CVA tenderness - Extremities General upper extremity: Normal inspection, Nontender, Normal ROM General lower extremity: Normal inspection, Nontender, Normal ROM - Neurological Neuro grossly intact: Yes Cognition: Normal Stacey Coma Scale Eye Opening: Spontaneous [place] Coma Scale Verbal: Oriented Stacey Coma Scale Motor: Obeys Commands Stacey Coma Scale Total: 15 - Psychological Associated symptoms: Normal affect, Normal mood - Skin Skin Temperature: Warm Skin Moisture: Dry Skin Color: Pale <REVA REID - Last Filed: 09/12/18 15:21> - Vital signs Vitals: Pulse Resp BP Pulse Ox 80 18 101/41 L 98 09/11/18 12:53 09/11/18 12:53 09/11/18 12:53 09/11/18 12:53 Course - Laboratory Result Diagrams: 09/12/18 05:35 09/11/18 13:20 <RADHA CARDENAS - Last Filed: 09/12/18 07:52> - Laboratory Result Diagrams: 09/12/18 05:35 09/11/18 13:20 - EKG Interpretation by Me EKG shows normal: Sinus rhythm Rhythm: PVC's <REVA REID - Last Filed: 09/12/18 15:21> - Re-evaluation Re-evalutation: 09/12/18 02:46 I accepted the patient from Reva Reid NP. Patient went to CT and get a CT chest which did show a significant right pleural effusion. [facility] was on diversion so I could not transfer her there where her biomedical engineering director is. I called [facility] and my attending, Dr. Chappell, ultimately spoke with Dr. Miller, hospitalist, and they did accept the patient for IMCU with a 24 to 48-hour wait. They said if she does become unstable or there is an acute change to call in case an upgrade to the ICU is needed. Patient was borderline hypotensive after getting the 2 units with a blood pressure of 91/50 map of 62. Patient did receive 2 units packed red blood cells and a repeat CBC has been ordered. Recommendation from Dr. Chappell was to give another unit of blood. 09/12/18 05:46 09/12/18 07:52 Most recent update is transport should arrive around 10 AM this morning. Patient's blood pressure has been stable throughout her course. (RADHA CARDENAS) 09/11/18 16:[address] Hollingsworth regarding patient presentation and diagnostic evaluation. Agrees with plan for transfusion at this time. Denies any chest pain abdominal pain nausea or vomiting. 09/11/18 19:57 Patient with drop in H&H from her baseline range. Patient also with evidence worrisome for acute kidney injury with mild increase in her BUN and creatinine. Patient with positive occult stool. Patient without any abdominal pain, no hematemesis, or nosebleed. Patient with incidental pleural effusion on x-ray. CT scan ordered to further evaluate this finding. There is no GI services on here, plan will be to transfer patient to [place] where her GI doctor is located. Patient was stable vital signs at this time. There is some question as to whether or not her drop in H&H could be attributed to her recent heavy nosebleed 2 days ago although with a positive Hemoccult GI bleed source should be evaluated. Patient reports having a colonoscopy 4 years ago without any acute findings and had an EGD performed 5 days ago which did not find anything acute. 09/11/18 20:06 Report and bedside handoff given to Bradford CHUA. (REVA REID) - Vital Signs Vital signs: Temp Pulse Resp BP Pulse Ox 97.7 F 80 21 H 121/61 95 09/12/18 10:01 09/12/18 09:30 09/12/18 10:01 09/12/18 10:01 09/12/18 10:01 - Laboratory Laboratory results interpreted by me: 09/11/18 09/11/18 09/11/18 13:20 13:20 13:20 WBC 3.0 L RBC 2.88 L Hgb 5.8 L Hct 20.0 L MCV 70 L MCH 20.1 L MCHC 28.9 L RDW 23.1 H Plt Count 108 L PT Sodium 133.4 L Carbon Dioxide 21 L BUN 47 H Creatinine 1.36 H Est GFR ( Amer) 47 L Est GFR (Non-Af Amer) 39 L Glucose 238 H Total Bilirubin 1.9 H Direct Bilirubin 1.4 H Alkaline Phosphatase 135 H NT-Pro-B Natriuret Pep 3010 H Albumin 2.8 L Crossmatch 09/11/18 09/11/18 09/12/18 13:20 20:10 05:35 WBC 3.8 L RBC 3.55 L Hgb 8.0 L D Hct 25.3 L MCV 71 L MCH 22.5 L MCHC 31.6 L RDW 24.1 H Plt Count 105 L PT 16.3 H Sodium Carbon Dioxide BUN Creatinine Est GFR ( Amer) Est GFR (Non-Af Amer) Glucose Total Bilirubin Direct Bilirubin Alkaline Phosphatase NT-Pro-B Natriuret Pep Albumin Crossmatch See Detail - EKG Interpretation by Me Additional EKG results interpreted by me: 09/11/18 20:36 Sinus rhythm 76, borderline prolonged QT, QTc 491 (REVA REID) Discharge <RADHA CARDENAS - Last Filed: 09/12/18 07:52> <REVA REID - Last Filed: 09/12/18 15:21> - Discharge Clinical Impression: Pleural effusion, Acute kidney injury Anemia Qualifiers: Anemia type: unspecified type Qualified Code(s): D64.9 - Anemia, unspecified GI bleed Qualifiers: GI bleed type/associated pathology: unspecified gastrointestinal hemorrhage type Qualified Code(s): K92.2 - Gastrointestinal hemorrhage, unspecified Cirrhosis Qualifiers: Hepatic cirrhosis type: unspecified hepatic cirrhosis Ascites presence: with ascites Qualified Code(s): K74.60 - Unspecified cirrhosis of liver Condition: Fair Disposition: [facility] Referrals: LACEY THOMAS MD [Primary Care Provider] - Follow up as needed
[2018-09-11 20:26] LABS: PROTHROMBIN TIME 16.3 SEC (11.4-15.4)
[2018-09-11 20:27] LABS: PARTIAL THROMBOPLASTIN TIME 33.8 SEC (23.5-35.8)
--- NOTE | 2018-09-12 00:37 | RADIOLOGY REPORT (SQ) ---
EXAM DESCRIPTION: CT CHEST WITHOUT IV CONTRAST COMPLETED DATE/TME: 09/11/2018 19:10 CLINICAL HISTORY: 68 years, Female, eval pleural effusion COMPARISON: Chest radiograph performed earlier the same day; prior CT from 10/16/2015 TECHNIQUE: Noncontrast CT of the chest was performed. Coronal and sagittal reformations were created. Images stored on PACS. All CT scanners at this facility use dose modulation, iterative reconstruction, and/or weight based dosing when appropriate to reduce radiation dose to as low as reasonably achievable (ALARA). [facility]: Dose Right [facility]: CareDose [facility]: Dose Right [facility]: Teradose 4D [facility]: Smart [employer] LIMITATIONS: None. FINDINGS: Central airways are patent. Lung windows show a large right pleural effusion. There is associated partial passive collapse of the right lung. An additional small left pleural effusion is also evident. Likewise, there is superimposed smooth interlobular septal thickening about both lungs. Additionally, there is more confluent consolidation located within the right lower and middle lobes. Solid irregular nodular opacity is noted about the right apex on image 10 of series 4 measuring 1.0 x 0.8 cm in size. This appears new from the previous examination dated 10/16/2015. Lungs are otherwise clear. Mediastinal windows show no significant hilar or mediastinal lymph node enlargement. The heart is enlarged. Calcifications are noted about the coronary vessels and thoracic aorta. The main pulmonary artery is mildly enlarged, measuring 3.3 cm in short axis. Limited evaluation of the upper abdomen reveals the presence of a TIPS. Varices are suspected about the left upper quadrant. Diffuse anasarca is noted. Bone windows show no destructive osseous lesions. IMPRESSION: Large right and small left pleural effusions with associated partial passive collapse of the right lung. Superimposed consolidative opacity within the right middle and lower lobes could indicate atelectasis although superimposed pneumonia is also a possibility. Smooth interlobular septal thickening indicates a component of interstitial edema. 9.0 mm solid pulmonary nodule within the upper lobe, new from 10/16/2015 and thus indeterminate. Consider a non-contrast Chest CT at 3 months to document stability/resolution. These guidelines do not apply to patients younger than 35 years, immunocompromised patients, and patients with cancer. Follow up in patients with significant comorbidities as clinically warranted. For lung cancer screening, adhere to Lung-RADS guidelines. Reference: Radiology. 2017; 284(1):228-43. TECHNICAL DOCUMENTATION: Quality ID # 436: Final reports with documentation of one or more dose reduction techniques (e.g., Automated exposure control, adjustment of the mA and/or kV according to patient size, use of iterative reconstruction technique) copyright 2011 [employer]- All Rights Reserved
--- NOTE | 2018-09-12 02:29 | ER Document Report ---
Doctor's Note Notes: I personally and independently obtained patient history and examined the patient in conjunction with the APC and agree with the assessment, treatment plan and disposition of the patient as recorded by the APC, and have reviewed the APC's note. HISTORY OF PRESENT ILLNESS: Patient is a 68 year old female that presents to the emergency department for chief complaint of low hemoglobin level from outpatient testing. Patient reports that she had a bad nosebleed recently. ROS: Constitutional: Negative for fever. Cardiovascular: Negative for chest pain. Respiratory: Negative for shortness of breath. Gastrointestinal: Negative for vomiting or abdominal pain Musculoskeletal: Negative for arm, leg or back pain Skin: Negative for rash. Neurological: Negative for weakness or numbness. Other than noted above, the 12 point review of systems was reviewed with the patient and were negative, all pertinent findings are included in the HPI. PHYSICAL EXAMINATION: Vital signs reviewed, nursing noted reviewed. GENERAL: Well-appearing, well-nourished and in no acute distress. HEAD: Atraumatic, normocephalic. EYES: Eyes appear normal, conjunctiva are normal. ENT: nares patent, oropharynx clear without exudates. Moist mucous membranes. NECK: Normal range of motion, supple without lymphadenopathy LUNGS: Breath sounds clear to auscultation bilaterally and equal. No wheezes rales or rhonchi. HEART: Regular rate and rhythm without murmurs ABDOMEN: Soft, nontender, normoactive bowel sounds. No rebound, guarding, or rigidity. No masses appreciated. EXTREMITIES: Nontender, good range of motion, bilateral lower extremity edema, chronic NEUROLOGICAL: No focal neurological deficits. Moves all extremities s pontaneously Motor and sensory grossly intact on exam. PSYCH: Normal mood, normal affect. SKIN: Warm, Dry, normal turgor, pallor noted MEDICAL DECISION MAKING: Patient seen and examined, vital signs reviewed, patient did appear pale, was not having any significant complaints of pain, no abdominal pain. Her hemoglobin was noted to be 5.8, etiology of bleeding, unclear, possibly from nosebleed versus GI hemorrhage she was Hemoccult positive, but this could be from a nosebleed as well, 2 units of blood ordered, the patient was borderline hypotensive, borderline tachycardic, call was placed to transfer the patient, accepted to the IMCU, at [facility], they state they may have a 24 to 48-hour hold, which was also true for [facility]. If patient's hemoglobin is not appropriately going up, and if her blood pressure drops, will consider upgrading to ICU level of care, will await repeat CBC after her second unit of blood. Please review detail APC documentation. *Note is created using voice recognition software and may contain spelling, syntax or grammatical errors. Laboratory 09/11/18 09/11/18 09/11/18 13:20 13:20 13:20 WBC 3.0 L RBC 2.88 L Hgb 5.8 L Hct 20.0 L MCV 70 L MCH 20.1 L MCHC 28.9 L RDW 23.1 H Plt Count 108 L Seg Neutrophils % 66.8 Lymphocytes % 18.4 Monocytes % 10.2 Eosinophils % 4.1 Basophils % 0.5 Absolute Neutrophils 2.0 Absolute Lymphocytes 0.6 Absolute Monocytes 0.3 Absolute Eosinophils 0.1 Absolute Basophils 0.0 PT INR APTT Sodium 133.4 L Potassium 4.4 Chloride 101 Carbon Dioxide 21 L Anion Gap 11 BUN 47 H Creatinine 1.36 H Est GFR ( Amer) 47 L Est GFR (Non-Af Amer) 39 L Glucose 238 H Calcium 8.5 Total Bilirubin 1.9 H Direct Bilirubin 1.4 H Neonat Total Bilirubin Not Reportable Neonat Direct Bilirubin Not Reportable Neonat Indirect Bili Not Reportable AST 30 ALT 25 Alkaline Phosphatase 135 H Ammonia Troponin I < 0.012 NT-Pro-B Natriuret Pep 3010 H Total Protein 6.3 Albumin 2.8 L Blood Type Blood Type Confirm Antibody Screen Crossmatch 09/11/18 09/11/18 09/11/18 13:20 13:20 14:42 WBC RBC Hgb Hct MCV MCH MCHC RDW Plt Count Seg Neutrophils % Lymphocytes % Monocytes % Eosinophils % Basophils % Absolute Neutrophils Absolute Lymphocytes Absolute Monocytes Absolute Eosinophils Absolute Basophils PT INR APTT Sodium Potassium Chloride Carbon Dioxide Anion Gap BUN Creatinine Est GFR ( Amer) Est GFR (Non-Af Amer) Glucose Calcium Total Bilirubin Direct Bilirubin Neonat Total Bilirubin Neonat Direct Bilirubin Neonat Indirect Bili AST ALT Alkaline Phosphatase Ammonia 26.4 Troponin I NT-Pro-B Natriuret Pep Total Protein Albumin Blood Type AB POSITIVE Blood Type Confirm AB POSITIVE AB POSITIVE Antibody Screen NEGATIVE Crossmatch See Detail 09/11/18 09/11/18 20:10 20:10 WBC RBC Hgb Hct MCV MCH MCHC RDW Plt Count Seg Neutrophils % Lymphocytes % Monocytes % Eosinophils % Basophils % Absolute Neutrophils Absolute Lymphocytes Absolute Monocytes Absolute Eosinophils Absolute Basophils PT 16.3 H INR 1.30 APTT 33.8 Sodium Potassium Chloride Carbon Dioxide Anion Gap BUN Creatinine Est GFR ( Amer) Est GFR (Non-Af Amer) Glucose Calcium Total Bilirubin Direct Bilirubin Neonat Total Bilirubin Neonat Direct Bilirubin Neonat Indirect Bili AST ALT Alkaline Phosphatase Ammonia Troponin I < 0.012 NT-Pro-B Natriuret Pep Total Protein Albumin Blood Type Blood Type Confirm Antibody Screen Crossmatch Chest X-Ray 09/11/18 13:08 IMPRESSION: Interval increase in a now moderate right pleural effusion and associated atelectasis or consolidation. Consider CT to further evaluate. Underlying mass is not excluded. Cardiomegaly. Chest CT 09/11/18 19:10 IMPRESSION: Large right and small left pleural effusions with associated partial passive collapse of the right lung. Superimposed consolidative opacity within the right middle and lower lobes could indicate atelectasis although superimposed pneumonia is also a possibility. Smooth interlobular septal thickening indicates a component of interstitial edema. 9.0 mm solid pulmonary nodule within the upper lobe, new from 10/16/2015 and thus indeterminate. Consider a non-contrast Chest CT at 3 months to document stability/resolution. These guidelines do not apply to patients younger than 35 years, immunocompromised patients, and patients with cancer. Follow up in patients with significant comorbidities as clinically warranted. For lung cancer screening, adhere to Lung-RADS guidelines. Reference: Radiology. 2017; 284(1):228-43. TECHNICAL DOCUMENTATION: Quality ID # 436: Final reports with documentation of one or more dose reduction techniques (e.g., Automated exposure control, adjustment of the mA and/or kV according to patient size, use of iterative reconstruction technique) copyright 2011 [employer]- All Rights Reserved
[2018-09-12] MEDS ORDERED: NORMAL SALINE 250 ML IV PRN (02:45)
[2018-09-12 06:05] LABS: ABSOLUTE EOSINOPHILS # (AUTO) 0.1 10^3/uL (0.0-0.6); ABSOLUTE LYMPHOCYTES (AUTO) 0.6 10^3/uL (0.5-4.7); ABSOLUTE MONOCYTES (AUTO) 0.4 10^3/uL (0.1-1.4); ABSOLUTE NEUT (AUTO) 2.8 10^3/uL (1.7-8.2); BASOPHILS % (AUTO) 0.2 % (0-2); EOSINOPHILS % (AUTO) 2.9 % (0-6); HEMATOCRIT 25.3 % (36.0-47.0); LYMPHOCYTES % (AUTO) 14.8 % (13-45); MEAN CORPUSCULAR HEMOGLOBIN 22.5 pg (27.0-33.4); MEAN CORPUSCULAR HGB CONC 31.6 g/dL (32.0-36.0); MEAN CORPUSCULAR VOLUME 71 fl (80-97); MONOCYTES % (AUTO) 9.5 % (3-13); PLATELET COUNT 105 10^3/uL (150-450); RED BLOOD COUNT 3.55 10^6/uL (3.72-5.28); RED CELL DISTRIBUTION WIDTH 24.1 % (11.5-14.0); SEGMENTED NEUTROPHILS % (AUTO) 72.6 % (42-78); TOTAL CELLS COUNTED % (AUTO) 100 %; WHITE BLOOD COUNT 3.8 10^3/uL (4.0-10.5)
[2018-09-12 06:35] LABS: ANISOCYTOSIS 3+; BURR CELLS 1+
[2018-09-12 06:36] LABS: PLATELET COMMENT DECREASED
[2018-09-12] MEDS: PANTOPRAZOLE SODIUM 40 MG VIAL IV PRN (09:59)
[2018-09-12 10:19] VITALS: BP 121/61
== END 2018-09-12 10:38 | disposition short-term general hospital (02) ==
LOC: ER 12:47
DX: K74.60 Unspecified cirrhosis of liver (principal); K92.2 Gastrointestinal hemorrhage, unspecified; D64.9 Anemia, unspecified; N17.9 Acute kidney failure, unspecified; J90 Pleural effusion, not elsewhere classified; R06.02 Shortness of breath; R91.1 Solitary pulmonary nodule; R63.5 Abnormal weight gain; I50.9 Heart failure, unspecified; I11.0 Hypertensive heart disease with heart failure; E11.9 Type 2 diabetes mellitus without complications; E03.9 Hypothyroidism, unspecified; Z90.49 Acquired absence of other specified parts of digestive tract; Z90.710 Acquired absence of both cervix and uterus
CPT/HCPCS: 93005; 96376; 99285; 96374; 86900; 86901; 36415; 36430; 86850; 82140; 85025; 85610; 85730; 87070; 84484; 86920; 83880; 71045; 71250; 93010; P9016; A9270; C9113 ×2; S0164

== ENCOUNTER → 2018-09-11 | Outpatient (CLI) | payer MEDICARE ==
[2018-09-11 10:49] LABS: ABSOLUTE EOSINOPHILS # (AUTO) 0.1 10^3/uL (0.0-0.6); ABSOLUTE LYMPHOCYTES (AUTO) 0.6 10^3/uL (0.5-4.7); ABSOLUTE MONOCYTES (AUTO) 0.3 10^3/uL (0.1-1.4); ABSOLUTE NEUT (AUTO) 2.1 10^3/uL (1.7-8.2); BASOPHILS % (AUTO) 0.8 % (0-2); EOSINOPHILS % (AUTO) 4.3 % (0-6); HEMATOCRIT 19.4 % (36.0-47.0); LYMPHOCYTES % (AUTO) 19.4 % (13-45); MEAN CORPUSCULAR HEMOGLOBIN 20.2 pg (27.0-33.4); MEAN CORPUSCULAR HGB CONC 29.7 g/dL (32.0-36.0); MEAN CORPUSCULAR VOLUME 68 fl (80-97); MONOCYTES % (AUTO) 9.3 % (3-13); PLATELET COUNT 107 10^3/uL (150-450); RED BLOOD COUNT 2.85 10^6/uL (3.72-5.28); RED CELL DISTRIBUTION WIDTH 22.7 % (11.5-14.0); SEGMENTED NEUTROPHILS % (AUTO) 66.2 % (42-78); TOTAL CELLS COUNTED % (AUTO) 100 %; WHITE BLOOD COUNT 3.1 10^3/uL (4.0-10.5)
[2018-09-11 11:06] LABS: ALANINE AMINOTRANSFERASE 23 U/L (9-52); ALBUMIN 2.8 g/dL (3.5-5.0); ALKALINE PHOSPHATASE 139 U/L (38-126); ANION GAP 12 (5-19); ASPARTATE AMINO TRANSFERASE 25 U/L (14-36); BILIRUBIN,DIRECT 1.3 mg/dL (0.0-0.4); BILIRUBIN,TOTAL 1.7 mg/dL (0.2-1.3); BLOOD UREA NITROGEN 46 mg/dL (7-20); CALCIUM 8.6 mg/dL (8.4-10.2); CARBON DIOXIDE 20 mmol/L (22-30); CHLORIDE 101 mmol/L (98-107); GLUCOSE 237 mg/dL (75-110); POTASSIUM 4.1 mmol/L (3.6-5.0); SODIUM 133.4 mmol/L (137-145); TOTAL PROTEIN 6.2 g/dL (6.3-8.2); TRIGLYCERIDES 57 mg/dL (<150)
[2018-09-11 11:22] LABS: HEMOGLOBIN 5.8 g/dL (12.0-15.5)
[2018-09-11 11:24] LABS: DIRECT LDL 93 mg/dL (<100)
== END ==
LOC: OD 10:08
PROVIDERS: ATTEND Family Medicine Geriatric Medicine
DX: E10.8 Type 1 diabetes mellitus with unspecified complications (principal); E87.6 Hypokalemia; D64.9 Anemia, unspecified; E83.42 Hypomagnesemia; K21.0 Gastro-esophageal reflux disease with esophagitis; Z79.899 Other long term (current) drug therapy
CPT/HCPCS: 36415; 80048; 80061; 80076; 82140; 82306; 84443; 85025

== ENCOUNTER → 2018-10-07 | Outpatient (CLI) | payer MEDICARE ==
[2018-10-07 10:29] LABS: ABSOLUTE EOSINOPHILS # (AUTO) 0.1 10^3/uL (0.0-0.6); ABSOLUTE LYMPHOCYTES (AUTO) 0.7 10^3/uL (0.5-4.7); ABSOLUTE MONOCYTES (AUTO) 0.4 10^3/uL (0.1-1.4); ABSOLUTE NEUT (AUTO) 2.5 10^3/uL (1.7-8.2); BASOPHILS % (AUTO) 1.2 % (0-2); EOSINOPHILS % (AUTO) 3.9 % (0-6); HEMATOCRIT 26.5 % (36.0-47.0); HEMOGLOBIN 8.4 g/dL (12.0-15.5); LYMPHOCYTES % (AUTO) 18.1 % (13-45); MEAN CORPUSCULAR HEMOGLOBIN 24.8 pg (27.0-33.4); MEAN CORPUSCULAR HGB CONC 31.7 g/dL (32.0-36.0); MONOCYTES % (AUTO) 11.2 % (3-13); PLATELET COUNT 130 10^3/uL (150-450); RED BLOOD COUNT 3.38 10^6/uL (3.72-5.28); RED CELL DISTRIBUTION WIDTH 33.2 % (11.5-14.0); SEGMENTED NEUTROPHILS % (AUTO) 65.6 % (42-78); TOTAL CELLS COUNTED % (AUTO) 100 %; WHITE BLOOD COUNT 3.8 10^3/uL (4.0-10.5)
[2018-10-07 10:31] LABS: INTERNATIONAL RATION (INR) 1.24; PROTHROMBIN TIME 15.7 SEC (11.4-15.4)
[2018-10-07 10:32] LABS: PARTIAL THROMBOPLASTIN TIME 36.3 SEC (23.5-35.8)
[2018-10-07 10:41] LABS: MEAN CORPUSCULAR VOLUME 78 fl (80-97)
[2018-10-07 10:51] LABS: ALBUMIN 3.3 g/dL (3.5-5.0); ALKALINE PHOSPHATASE 138 U/L (38-126); ANION GAP 11 (5-19); ASPARTATE AMINO TRANSFERASE 30 U/L (14-36); BILIRUBIN,DIRECT 1.9 mg/dL (0.0-0.4); BILIRUBIN,TOTAL 2.8 mg/dL (0.2-1.3); BLOOD UREA NITROGEN 29 mg/dL (7-20); CALCIUM 8.9 mg/dL (8.4-10.2); CARBON DIOXIDE 25 mmol/L (22-30); CHLORIDE 103 mmol/L (98-107); GLUCOSE 144 mg/dL (75-110); IRON(TIBC) 40.3 ug/dL (37-170); POTASSIUM 4.4 mmol/L (3.6-5.0); TOTAL PROTEIN 6.7 g/dL (6.3-8.2)
[2018-10-07 11:20] LABS: ANISOCYTOSIS 4+; HYPOCHROMASIA 2+; OVALOCYTES 1+; PLATELET COMMENT DECREASED; POIKILOCYTOSIS 1+; SCHISTOCYTES SLIGHT
[2018-10-07 11:21] LABS: ABSOLUTE EOSINOPHILS # (AUTO) 0.1 10^3/uL (0.0-0.6); ABSOLUTE LYMPHOCYTES (AUTO) 0.7 10^3/uL (0.5-4.7); ABSOLUTE MONOCYTES (AUTO) 0.4 10^3/uL (0.1-1.4); ABSOLUTE NEUT (AUTO) 2.5 10^3/uL (1.7-8.2); BASOPHILS % (AUTO) 1.2 % (0-2); EOSINOPHILS % (AUTO) 3.9 % (0-6); HEMATOCRIT 26.5 % (36.0-47.0); HEMOGLOBIN 8.4 g/dL (12.0-15.5); LYMPHOCYTES % (AUTO) 18.1 % (13-45); MEAN CORPUSCULAR HEMOGLOBIN 24.8 pg (27.0-33.4); MEAN CORPUSCULAR HGB CONC 31.7 g/dL (32.0-36.0); MONOCYTES % (AUTO) 11.2 % (3-13); PLATELET COUNT 130 10^3/uL (150-450); RED BLOOD COUNT 3.38 10^6/uL (3.72-5.28); RED CELL DISTRIBUTION WIDTH 33.2 % (11.5-14.0); SEGMENTED NEUTROPHILS % (AUTO) 65.6 % (42-78); TOTAL CELLS COUNTED % (AUTO) 100 %; WHITE BLOOD COUNT 3.8 10^3/uL (4.0-10.5)
[2018-10-07 11:22] LABS: MEAN CORPUSCULAR VOLUME 78 fl (80-97)
[2018-10-07 11:23] LABS: ANISOCYTOSIS 4+; HYPOCHROMASIA 2+; OVALOCYTES 1+; PLATELET COMMENT DECREASED; POIKILOCYTOSIS 1+; SCHISTOCYTES SLIGHT
== END ==
LOC: OD 09:07
PROVIDERS: ATTEND Family Medicine Geriatric Medicine
DX: I85.01 Esophageal varices with bleeding (principal); K72.90 Hepatic failure, unspecified without coma; D64.9 Anemia, unspecified; D61.818 Other pancytopenia
CPT/HCPCS: 36415; 80053; 82140; 82728; 83540; 83550; 85025; 85610; 85730

== ENCOUNTER → 2018-10-23 | Outpatient (CLI) | payer MEDICARE ==
[2018-10-23 17:05] LABS: ARTERIAL BLOOD BASE EXCESS 0.1 mmol/L; ARTERIAL BLOOD H2CO3 0.95 mmol/L (1.05-1.35); ARTERIAL BLOOD HCO3 23.2 mmol/L (20-24); ARTERIAL BLOOD O2 SATURATION 96.1 % (94-98); ARTERIAL BLOOD PCO2 31.5 mmHg (35-45); ARTERIAL BLOOD PH 7.49 (7.35-7.45); ARTERIAL BLOOD PO2 74.5 mmHg (80-100); ARTERIAL BLOOD TOTAL CO2 24.2 mmol/L (21-25)
[2018-10-23 17:28] LABS: ARTERIAL BLOOD FIO2 ROOM AIR
== END ==
LOC: OD 16:25
PROVIDERS: ATTEND Internal Medicine Pulmonary Disease
DX: J96.10 Chronic respiratory failure, unspecified whether with hypoxia or hypercapnia (principal)
CPT/HCPCS: 82803

== ENCOUNTER → 2019-01-24 | Outpatient (CLI) | payer MEDICARE | LOC: OD 14:53 | PROVIDERS: ATTEND Family Medicine Geriatric Medicine | DX: E10.8 Type 1 diabetes mellitus with unspecified complications (principal); K72.90 Hepatic failure, unspecified without coma; K74.69 Other cirrhosis of liver; Z79.899 Other long term (current) drug therapy | CPT/HCPCS: 36415; 82140; 83036 ==

== ENCOUNTER → 2019-02-03 | Outpatient (CLI) | payer MEDICARE ==
[2019-02-03 11:00] LABS: ABSOLUTE EOSINOPHILS # (AUTO) 0.1 10^3/uL (0.0-0.6); ABSOLUTE LYMPHOCYTES (AUTO) 0.6 10^3/uL (0.5-4.7); ABSOLUTE MONOCYTES (AUTO) 0.3 10^3/uL (0.1-1.4); ABSOLUTE NEUT (AUTO) 2.2 10^3/uL (1.7-8.2); BASOPHILS % (AUTO) 0.6 % (0-2); EOSINOPHILS % (AUTO) 3.2 % (0-6); HEMATOCRIT 26.7 % (36.0-47.0); HEMOGLOBIN 8.3 g/dL (12.0-15.5); LYMPHOCYTES % (AUTO) 17.6 % (13-45); MEAN CORPUSCULAR HEMOGLOBIN 21.5 pg (27.0-33.4); MEAN CORPUSCULAR VOLUME 69 fl (80-97); MONOCYTES % (AUTO) 10.8 % (3-13); PLATELET COUNT 100 10^3/uL (150-450); RED BLOOD COUNT 3.85 10^6/uL (3.72-5.28); RED CELL DISTRIBUTION WIDTH 23.6 % (11.5-14.0); SEGMENTED NEUTROPHILS % (AUTO) 67.8 % (42-78); TOTAL CELLS COUNTED % (AUTO) 100 %; WHITE BLOOD COUNT 3.2 10^3/uL (4.0-10.5)
[2019-02-03 11:40] LABS: ANION GAP 10 (5-19); BLOOD UREA NITROGEN 37 mg/dL (7-20); CALCIUM 9.1 mg/dL (8.4-10.2); CARBON DIOXIDE 28 mmol/L (22-30); CHLORIDE 101 mmol/L (98-107); GLUCOSE 111 mg/dL (75-110); POTASSIUM 4.6 mmol/L (3.6-5.0)
== END ==
LOC: OD 10:31
PROVIDERS: ATTEND Family Medicine Geriatric Medicine
DX: K74.69 Other cirrhosis of liver (principal); K72.90 Hepatic failure, unspecified without coma; Z79.899 Other long term (current) drug therapy
CPT/HCPCS: 36415; 80048; 82140; 85025

== ENCOUNTER → 2019-02-11 | Outpatient (CLI) | payer MEDICARE ==
[2019-02-11 16:20] LABS: ANION GAP 14 (5-19); BLOOD UREA NITROGEN 28 mg/dL (7-20); CALCIUM 8.7 mg/dL (8.4-10.2); CARBON DIOXIDE 22 mmol/L (22-30); CHLORIDE 99 mmol/L (98-107); GLUCOSE 320 mg/dL (75-110); POTASSIUM 4.3 mmol/L (3.6-5.0)
== END ==
LOC: OD 15:13
PROVIDERS: ATTEND Family Medicine Geriatric Medicine
DX: K72.90 Hepatic failure, unspecified without coma (principal); E10.8 Type 1 diabetes mellitus with unspecified complications; R79.89 Other specified abnormal findings of blood chemistry
CPT/HCPCS: 36415; 80048; 82140

== ENCOUNTER 2019-03-14 10:20 | Inpatient (IN) | payer MEDICARE ==
[2019-03-14] MEDS ORDERED: NORMAL SALINE 1000 ML 1,000 ML IV ONE ×2 (10:50→13:22)
--- NOTE | 2019-03-14 11:05 | ER Document Report ---
ED Medical Screen (RME) - General Chief Complaint: Altered Mental Status Stated Complaint: WEAKNESS Time Seen by Provider: 03/14/19 10:45 Primary Care Provider: LACEY THOMAS MD [Primary Care Provider] - Follow up as needed Mode of Arrival: Medic Information source: Emergency Med Personnel, [facility] Records Notes: 68-year-old female with history of cirrhosis and diabetes presents to the emergency department via EMS with altered mental status. EMS has lactic acid at 3.1. Apparently patient was treated at home with lactulose and low blood sugar. Patient presents now mumbling, hypothermic, jaundice, ascites. Septic work-up ordered I have greeted and performed a rapid initial assessment of this patient. A comprehensive ED assessment and evaluation of the patient, analysis of test results and completion of the medical decision making process will be conducted by additional ED providers. TRAVEL OUTSIDE OF THE [place] IN LAST 30 DAYS: No - Related Data Allergies/Adverse Reactions: No Known Allergies Allergy (Verified 09/11/18 12:48) Past Medical History - Past Medical History Cardiac Medical History: Reports: Hx Congestive Heart Failure, Hx Hypertension Pulmonary Medical History: Reports: Hx COPD Endocrine Medical History: Reports: Hx Diabetes Mellitus Type 1, Hx Diabetes Mellitus Type 2, Hx Hypothyroidism Renal/ Medical History: Denies: Hx Peritoneal Dialysis GI Medical History: Reports: Hx Cirrhosis, Hx Gastroesophageal Reflux Disease Psychiatric Medical History: Denies: Hx Depression Past Surgical History: Reports: Hx Abdominal Surgery - hernia repair, Hx Section - x2, Hx Cholecystectomy, Hx Herniorrhaphy, Hx Hysterectomy, Hx Orthopedic Surgery, Other - Tips procedure Physical Exam - Vital signs Vitals: Temp Pulse Resp BP Pulse Ox 94.7 F L 76 19 119/52 L 98 03/14/19 10:53 03/14/19 10:53 03/14/19 10:53 03/14/19 10:53 03/14/19 10:53 Course - Vital Signs Vital signs: Temp Pulse Resp BP Pulse Ox 94.7 F L 76 19 119/52 L 98 03/14/19 10:53 03/14/19 10:53 03/14/19 10:53 03/14/19 10:53 03/14/19 10:53 - Laboratory Result Diagrams: 03/14/19 10:30 03/14/19 10:30 Doctor's Discharge - Discharge Referrals: LACEY THOMAS MD [Primary Care Provider] - Follow up as needed
[2019-03-14] MEDS ORDERED: CEFTRIAXONE 1 GM/D5W RTU 1 GM/50 ML RTUPB IV ONE (11:06)
[2019-03-14 11:08] LABS: ABSOLUTE LYMPHOCYTES (AUTO) 0.4 10^3/uL (0.5-4.7); ABSOLUTE MONOCYTES (AUTO) 0.4 10^3/uL (0.1-1.4); ABSOLUTE NEUT (AUTO) 2.5 10^3/uL (1.7-8.2); BASOPHILS % (AUTO) 0.5 % (0-2); EOSINOPHILS % (AUTO) 0.9 % (0-6); HEMATOCRIT 25.2 % (36.0-47.0); LYMPHOCYTES % (AUTO) 12.6 % (13-45); MEAN CORPUSCULAR HEMOGLOBIN 22.9 pg (27.0-33.4); MEAN CORPUSCULAR HGB CONC 30.7 g/dL (32.0-36.0); MEAN CORPUSCULAR VOLUME 75 fl (80-97); MONOCYTES % (AUTO) 11.4 % (3-13); RED BLOOD COUNT 3.37 10^6/uL (3.72-5.28); RED CELL DISTRIBUTION WIDTH 28.2 % (11.5-14.0); SEGMENTED NEUTROPHILS % (AUTO) 74.6 % (42-78); TOTAL CELLS COUNTED % (AUTO) 100 %; WHITE BLOOD COUNT 3.4 10^3/uL (4.0-10.5)
[2019-03-14 11:27] LABS: ALBUMIN 2.8 g/dL (3.5-5.0); ALKALINE PHOSPHATASE 128 U/L (38-126); ANION GAP 13 (5-19); ASPARTATE AMINO TRANSFERASE 37 U/L (14-36); BILIRUBIN,TOTAL 2.9 mg/dL (0.2-1.3); BLOOD UREA NITROGEN 34 mg/dL (7-20); CALCIUM 8.9 mg/dL (8.4-10.2); CARBON DIOXIDE 23 mmol/L (22-30); CHLORIDE 105 mmol/L (98-107); GLUCOSE 88 mg/dL (75-110); POTASSIUM 4.4 mmol/L (3.6-5.0); TOTAL PROTEIN 7.1 g/dL (6.3-8.2)
[2019-03-14 11:29] LABS: ALCOHOL < 10 mg/dL (NONE DETECTED)
[2019-03-14 11:37] LABS: HEMOGLOBIN 7.7 g/dL (12.0-15.5)
[2019-03-14 11:41] LABS: PLATELET COUNT 85 10^3/uL (150-450)
[2019-03-14 11:44] LABS: ANISOCYTOSIS 3+; HYPOCHROMASIA SLIGHT; PLATELET COMMENT DECREASED; POLYCHROMASIA SLIGHT; STOMATOCYTES SLIGHT
--- NOTE | 2019-03-14 11:56 | RADIOLOGY REPORT (SQ) ---
EXAM DESCRIPTION: CHEST SINGLE VIEW COMPLETED DATE/TIME: 03/14/2019 11:33 am REASON FOR STUDY: sepsis COMPARISON: AP view of the chest from 09/11/2018 EXAM PARAMETERS: NUMBER OF VIEWS: One view. TECHNIQUE: An AP view of the chest was obtained. RADIATION DOSE: NA LIMITATIONS: None. FINDINGS: LUNGS AND PLEURA: Bilateral and asymmetric (right greater than left) pleural and parenchym al opacities that obscure the contours of the hemidiaphragms and blunt the costophrenic sulci. There is no pneumothorax. MEDIASTINUM AND HILAR STRUCTURES: No mediastinal or hilar contour abnormality. HEART AND VASCULAR STRUCTURES: The cardiac silhouette is enlarged. BONES: No acute findings. HARDWARE: None in the chest. OTHER: No other finding. IMPRESSION: Bibasilar pleural and parenchymal opacities that obscure the contours of the hemidiaphra gms and blunt the costophrenic sulci. These opacities could represent a combination of pleural fluid , atelectasis and/or pneumonia. TECHNICAL DOCUMENTATION: JOB ID: [id number] [employer]- All Rights Reserved Reading location - IP/workstation name: [email or web address]
[2019-03-14 12:23] LABS: APPEARANCE,URINE SLIGHTLY-CLOUDY; BILIRUBIN,URINE NEGATIVE (NEGATIVE); COLOR,URINE AMBER; GLUCOSE, URINE NEGATIVE (NEGATIVE); KETONES,URINE NEGATIVE (NEGATIVE); LEUKOCYTE ESTERASE,URINE NEGATIVE (NEGATIVE); NITRITE,URINE NEGATIVE (NEGATIVE); PROTEIN,URINE NEGATIVE (NEGATIVE); URINE SPECIFIC GRAVITY 1.012
[2019-03-14] MEDS ORDERED: AZITHROMYCIN INJ 500 MG VIAL IV ONE (12:24)
[2019-03-14] MEDS ORDERED: LACTULOSE SYRUP 20 GM/30 ML UDCUP PO ONE (12:27)
[2019-03-14 12:29] LABS: INTERNATIONAL RATION (INR) 1.42; PROTHROMBIN TIME 17.4 SEC (11.4-15.4)
[2019-03-14 12:37] LABS: URINE AMPHETAMINES SCREEN NEGATIVE; URINE BARBITURATES SCREEN NEGATIVE; URINE BENZODIAZEPINES SCREEN NEGATIVE; URINE COCAINE SCREEN NEGATIVE; URINE MARIJUANA (THC) SCREEN NEGATIVE; URINE METHADONE SCREEN NEGATIVE; URINE PHENCYCLIDINE SCREEN NEGATIVE
--- NOTE | 2019-03-14 12:43 | ER Document Report ---
ED General - General Chief Complaint: Altered Mental Status Stated Complaint: WEAKNESS Time Seen by Provider: 03/14/19 10:45 Primary Care Provider: LACEY LOZA MD [Primary Care Provider] - Follow up as needed Mode of Arrival: Medic Notes: 68-year-old female with history of cirrhosis, diabetes, and hepatic encephalopathy presents with altered mental status. Per he noticed she was not responsive this morning and states he thought it may have been due to low blood sugar. Patient states he gave her orange juice and squirted in her mouth several times and was able to get the blood sugar up to 80 however she was still not responsive. states he called EMS who did a test and told him that she was possibly septic. states he did give her lactulose this morning which she takes 3 times a day. States he also noticed that she had vomited on herself and noticed that the emesis appeared red but did not appear to be blood. Patient was seen by the cataract lens generator, Dr. Saab, on Sunday due to anemia. states that Dr. Saab did an abdominal exam and patient has been complaining of intermittent left upper quadrant pain since then. Patient also has been having a cough that he states is chronic in nature. Patient's primary care doctor is Dr. Loza. states she has been hospitalized for hepatic encephalopathy multiple times. Patient is also been hospitalized for UTIs multiple times as well. TRAVEL OUTSIDE OF THE [place] IN LAST 30 DAYS: No - Related Data Allergies/Adverse Reactions: No Known Allergies Allergy (Verified 09/11/18 12:48) Past Medical History - General Information source: Emergency Med Personnel, [facility] Records - Social History Smoking Status: Unknown if Ever Smoked Family History: Reviewed & Not Pertinent Patient has suicidal ideation: No Patient has homicidal ideation: No - Past Medical History Cardiac Medical History: Reports: Hx Congestive Heart Failure, Hx Hypertension Pulmonary Medical History: Reports: Hx COPD Endocrine Medical History: Reports: Hx Diabetes Mellitus Type 1, Hx Diabetes Mellitus Type 2, Hx Hypothyroidism Renal/ Medical History: Denies: Hx Peritoneal Dialysis GI Medical History: Reports: Hx Cirrhosis, Hx Gastroesophageal Reflux Disease Psychiatric Medical History: Denies: Hx Depression Past Surgical History: Reports: Hx Abdominal Surgery - hernia repair, Hx Section - x2, Hx Cholecystectomy, Hx Herniorrhaphy, Hx Hysterectomy, Hx Orthopedic Surgery, Other - Tips procedure Review of Systems - Review of Systems -: Yes ROS unobtainable due to patient's medical condition Physical Exam - Vital signs Vitals: Pulse Ox 97 03/14/19 10:27 - Notes Notes: GENERAL: Well-appearing, well-nourished and in no acute distress. HEAD: Atraumatic, normocephalic. EYES: Sclera icteric NECK: Normal range of motion, supple without lymphadenopathy or JVD. LUNGS: Nonproductive cough. Breath sounds clear to auscultation bilaterally and equal. No wheezes rales or rhonchi. HEART: Regular rate and rhythm without murmurs, rubs or gallops. ABDOMEN: Soft tenderness globally. Distended. EXTREMITIES: No pitting or edema. No clubbing or cyanosis. NEUROLOGICAL: GCS 11 PSYCH: Normal mood, normal affect. SKIN: Jaundice, cool to touch. Course - Re-evaluation Re-evalutation: 03/14/19 upon initial arrival patient was found to be hypothermic rectally. Septic protocol was placed by triage WHITE SU[employer]AR SYRUP OPERATOR. She also ordered Rocephin. Patient's chest x-ray shows a possible pneumonia so azithromycin was added. Patient is GCS 11 on exam. Patient appears jaundiced. Initially lactulose was ordered however patient is currently having bowel movements at this time. So this was held. 03/14/19 12:46 patient was placed on bear hugger and warm IV fluids was also ordered. 03/14/19 13:23 Lactic 2.7. Ordered another 1 L IVP. 03/14/19 13:30 Spoke to hospitalist, Dr. Comer, who requested beauty culturist be called first. 03/14/19 13:[address] Mckeon, beauty culturist, who will come down to see pt. 03/14/19 13:37 03/14/19 14:19 Bookbinder Apprentice, Dr. Mckeon, who states pt is tender over shunt. Pt is on Rifaxim and lactulose and still has an elevated ammonia. Pt is followed by transplant team at [facility]. Recommends transfer to [facility]. , or [place]. 03/14/19 14:31 Called [facility] Transfer Center. Spoke to Cas. Will page out to beauty culturist. Also requesting face sheet be faxed. Thurman to fax face sheet to [phone]. 03/14/19 15:[address] Debbie Collins, beauty culturist who recommends step do wn bed. Cas will page out to hospitalist. Lactic acid has imroved to 1.3. 03/14/19 16:[address] Donis Mejia, hospitalist at [facility] who accepted pt to step down. However, they do not have any available beds and it may be the weekend or later before this pt would get a bed at [facility]. Pt was placed on waitlist for transfer at [facility]. Discussed with attending, Dr. Cedeno, who recommended IR to do a paracentesis to rule out SBP. Spoke to radiology who state they will speak to ultrasound. 03/14/19 16:43 US guided paracentesis order placed. 03/14/19 17:18 US called and stated no fluid. Spoke to beauty culturist, Dr. Mckeon, who recommended US liver with portal vein and CT abdomen/pelvis with contrast. 03/14/19 17:26 Pt is more alert. Pt states she is having pain. Will order pain medication. Updated on transfer process. 03/14/19 19:14 Pt is now hypothermic 94F. Placed back on bear hugger. 03/14/19 19:[address] Mckeon, beauty culturist, who states he has left but has given sign out about this pt to WHITE SUGAR SYRUP OPERATOR who is now covering ICU. Will contact her for admission. Spoke to WHITE SUGAR SYRUP OPERATOR Jacque Hernandez who accepted pt for admission. States will put in orders and come down to see pt. - Vital Signs Vital signs: Temp Pulse Resp BP Pulse Ox 95.3 F L 76 14 105/40 L 95 03/14/19 18:38 03/14/19 10:53 03/14/19 18:38 03/14/19 18:38 03/14/19 18:38 - Laboratory Result Diagrams: 03/14/19 10:30 03/14/19 10:30 Laboratory results interpreted by me: 03/14/19 03/14/19 03/14/19 10:30 10:30 10:30 WBC 3.4 L RBC 3.37 L Hgb 7.7 L Hct 25.2 L MCV 75 L MCH 22.9 L MCHC 30.7 L RDW 28.2 H Plt Count 85 L Lymph % (Auto) 12.6 L Absolute Lymphs (auto) 0.4 L PT VBG pH VBG pCO2 VBG HCO3 BUN 34 H Creatinine 1.30 H Est GFR ( Amer) 49 L Est GFR (MDRD) Non-Af 41 L POC Glucose Lactic Acid Total Bilirubin 2.9 H Direct Bilirubin 2.0 H AST 37 H Alkaline Phosphatase 128 H Ammonia 129.3 H Albumin 2.8 L Urine Urobilinogen Urine Ascorbic Acid 03/14/19 03/14/19 03/14/19 10:30 10:30 10:37 WBC RBC Hgb Hct MCV MCH MCHC RDW Plt Count Lymph % (Auto) Absolute Lymphs (auto) PT 17.4 H VBG pH VBG pCO2 VBG HCO3 BUN Creatinine Est GFR ( Amer) Est GFR (MDRD) Non-Af POC Glucose 135 H Lactic Acid 2.7 H Total Bilirubin Direct Bilirubin AST Alkaline Phosphatase Ammonia Albumin Urine Urobilinogen Urine Ascorbic Acid 03/14/19 03/14/19 11:50 12:33 WBC RBC Hgb Hct MCV MCH MCHC RDW Plt Count Lymph % (Auto) Absolute Lymphs (auto) PT VBG pH 7.45 H VBG pCO2 27.4 L VBG HCO3 18.7 L BUN Creatinine Est GFR ( Amer) Est GFR (MDRD) Non-Af POC Glucose Lactic Acid Total Bilirubin Direct Bilirubin AST Alkaline Phosphatase Ammonia Albumin Urine Urobilinogen 2.0 H Urine Ascorbic Acid 40 H Discharge - Discharge Clinical Impression: Hepatic encephalopathy, Increased ammonia level, Lactic acidosis Hypothermia Qualifiers: Encounter type: sequela Qualified Code(s): T68.XXXS - Hypothermia, sequela Bilateral pneumonia Qualifiers: Pneumonia type: due to unspecified organism Lung location: unspecified part of lung Qualified Code(s): J18.9 - Pneumonia, unspecified organism Condition: Serious Disposition: ADMITTED INPATIENT Admitting Provider: RENO Hernandez/Dr. Mckeon Unit Admitted: ICU Referrals: LACEY LOZA MD [Primary Care Provider] - Follow up as needed
[2019-03-14 12:54] LABS: VENOUS BLOOD BASE EXCESS -4.6 mmol/L; VENOUS BLOOD HCO3 18.7 mmol/L (20-32); VENOUS BLOOD PCO2 27.4 mmHg (35-63); VENOUS BLOOD PH 7.45 (7.30-7.42)
[2019-03-14] MEDS ORDERED: FUROSEMIDE INJ/PF 20 MG/2 ML SDV IV ONE ×2 (14:27→18:35)
--- NOTE | 2019-03-14 15:58 | PDOC CONSULTATION ---
Consultation Consult Date: 03/14/19 Provider Consulted: GEORGETTE BROUSSARD Consult reason:: Cirrhosis with concern for sepsis History of Present Illness History of Present Illness: 68yo F with history of cirrhosis and significant portal hypertension. She has had countless episodes of gastroesophageal variceal bleeding, admissions for hepatic encephalopathy and other infections related to her ascites. Five years ago she underwent a TIPS procedure because of her severe portal hypertension/variceal disease and the shunt has been working well. A few days ago she went to her structurer because of chronic anemia and during the exam she was noted to be tender in her RUQ. She takes numerous medications but most notably she is on rifaximin and lactulose for chronic hyperammonemia. This morning, her woke up to his alarm at 0700 to get her lactulose dose and when he looked at his he found her lying in a puddle of vomit that appeared red in color. He states that it did not look like blood but was red tinged. He checked her blood sugar and noted that she was hypoglycemic (70's) so he gave her orange juice and cleaned her up but she seemed altered so he called 911. Because of her history of hepatic encephalopathy he also gave her a dose of lactulose. Upon arrival she was found to have a glucose of 93 but was still altered. Her point of care lactate was high and she was hypothermic (94.7 F) and borderline hypotensive. Workup at our ER showed a normal WBC, a fairly stable chronic anemia (compared to prior labs) a lactate of 2.6 and an ammonia level of 129. Past Medical History Cardiac Medical History: Reports: Congestive Heart Failure, Hypertension Pulmonary Medical History: Reports: Chronic Obstructive Pulmonary Disease (COPD) EENT Medical History: Reports: Other - Gastroesophageal Varices Neurological Medical History: Reports: Other - Hepatic Encephalopathy Endocrine Medical History: Reports: Diabetes Mellitus Type 1, Hypothyroidism Renal/ Medical History: Reports: Other - Frequent UTI's Malignancy Medical History: Reports: None GI Medical History: Reports: Cirrhosis, Gastroesophageal Reflux Disease Musculoskeltal Medical History: Reports: None, Arthritis Psychiatric Medical History: Reports: None Traumatic Medical History: Reports: None Hematology: Reports: Anemia Infectious Medical History: Reports: None Past Surgical History Past Surgical History: Reports: Section - x2, Cholecystectomy, Herniorrhaphy, Hysterectomy, Orthopedic Surgery - Shoulder x2, Other - Gastroesophageal Variceal Banding x 6-8 different times; TIPS procedure Social History Information Source: Relative Lives with: Spouse/Significant other Smoking Status: Never Smoker Frequency of Alcohol Use: None Hx Recreational Drug Use: No Drugs: None Hx Prescription Drug Abuse: No - Advance Directive Surrogate healthcare decision maker:: Family History Family History: Reviewed & Not Pertinent Parental Family History Reviewed: Yes Children Family History Reviewed: Yes Sibling(s) Family History Reviewed.: Yes Medication/Allergy Allergies/Adverse Reactions: No Known Allergies Allergy (Verified 09/11/18 12:48) Review of Systems All systems: as per PMH Physical Exam Vital Signs: Temp Pulse Resp BP Pulse Ox 96.2 F L 76 27 H 101/48 L 94 03/14/19 14:00 03/14/19 10:53 03/14/19 14:00 03/14/19 14:00 03/14/19 14:00 Intake & Output 03/13/19 03/14/19 03/15/19 06:59 06:59 06:59 Intake Total 1050 Balance 1050 Weight 71.2 kg General appearance: PRESENT: mild distress, thin Head exam: PRESENT: atraumatic, normocephalic Eye exam: PRESENT: EOMI, PERRLA, scleral icterus. ABSENT: nystagmus Ear exam: PRESENT: normal external ear exam Mouth exam: PRESENT: moist, tongue midline Throat exam: ABSENT: post pharyngeal erythema Neck exam: ABSENT: carotid bruit, JVD, thyromegaly Respiratory exam: PRESENT: crackles, symmetrical. ABSENT: accessory muscle use, chest wall tenderness Cardiovascular exam: PRESENT: RRR Pulses: PRESENT: normal radial pulses, normal femoral pulses Vascular exam: PRESENT: normal capillary refill GI/Abdominal exam: PRESENT: ascites, diminished bowel sounds, distended, soft, tenderness - Specifically tender in aide right upper quadrant/right of the umbilicus.. ABSENT: firm, guarding, rebound Rectal exam: PRESENT: deferred Extremities exam: ABSENT: calf tenderness, pedal edema, tenderness Neurological exam: PRESENT: altered, CN II-XII grossly intact Psychiatric exam: PRESENT: flat affect Skin exam: PRESENT: dry, jaundice Results Laboratory Results: 03/14/19 10:30 03/14/19 10:30 03/14/19 03/14/19 03/14/19 10:30 10:30 10:30 WBC 3.4 L RBC 3.37 L Hgb 7.7 L Hct 25.2 L MCV 75 L MCH 22.9 L MCHC 30.7 L RDW 28.2 H Plt Count 85 L Seg Neutrophils % 74.6 VBG pH VBG pCO2 VBG HCO3 VBG Base Excess Sodium 140.8 Potassium 4.4 Chloride 105 Carbon Dioxide 23 Anion Gap 13 BUN 34 H Creatinine 1.30 H Est GFR ( Amer) 49 L Glucose 88 Lactic Acid Calcium 8.9 Magnesium 2.2 Total Bilirubin 2.9 H AST 37 H Alkaline Phosphatase 128 H Ammonia 129.3 H Total Protein 7.1 Albumin 2.8 L Urine Color Urine Appearance Urine pH Ur Specific [place] Urine Protein Urine Glucose (UA) Urine Ketones Urine Blood Urine Nitrite Ur Leukocyte Esterase Urine WBC (Auto) Urine RBC (Auto) Blood Type Antibody Screen 03/14/19 03/14/19 03/14/19 10:30 11:50 12:28 WBC RBC Hgb Hct MCV MCH MCHC RDW Plt Count Seg Neutrophils % VBG pH VBG pCO2 VBG HCO3 VBG Base Excess Sodium Potassium Chloride Carbon Dioxide Anion Gap BUN Creatinine Est GFR ( Amer) Glucose Lactic Acid 2.7 H Calcium Magnesium Total Bilirubin AST Alkaline Phosphatase Ammonia Total Protein Albumin Urine Color [place] Urine Appearance SLIGHTLY-CLOUDY Urine pH 5.0 Ur Specific [place] 1.012 Urine Protein NEGATIVE Urine Glucose (UA) NEGATIVE Urine Ketones NEGATIVE Urine Blood NEGATIVE Urine Nitrite NEGATIVE Ur Leukocyte Esterase NEGATIVE Urine WBC (Auto) 3 Urine RBC (Auto) 1 Blood Type AB POSITIVE Antibody Screen NEGATIVE 03/14/19 12:33 WBC RBC Hgb Hct MCV MCH MCHC RDW Plt Count Seg Neutrophils % VBG pH 7.45 H VBG pCO2 27.4 L VBG HCO3 18.7 L VBG Base Excess -4.6 Sodium Potassium Chloride Carbon Dioxide Anion Gap BUN Creatinine Est GFR ( Amer) Glucose Lactic Acid Calcium Magnesium Total Bilirubin AST Alkaline Phosphatase Ammonia Total Protein Albumin Urine Color Urine Appearance Urine pH Ur Specific [place] Urine Protein Urine Glucose (UA) Urine Ketones Urine Blood Urine Nitrite Ur Leukocyte Esterase Urine WBC (Auto) Urine RBC (Auto) Blood Type Antibody Screen Impressions: Chest X-Ray 03/14/19 10:55 IMPRESSION: Bibasilar pleural and parenchymal opacities that obscure the contours of the hemidiaphragms and blunt the costophrenic sulci. These opacities could represent a combination of pleural fluid, atelectasis and/or pneumonia. Assessment & Plan - Diagnosis (1) Portal hypertension Is this a current diagnosis for this admission?: Yes (2) CHF (congestive heart failure) Qualifiers: Heart failure type: unspecified Heart failure chronicity: chronic Qualified Code(s): I50.9 - Heart failure, unspecified Is this a current diagnosis for this admission?: Yes (3) Abdominal pain Qualifiers: Abdominal location: right upper quadrant Qualified Code(s): R10.11 - Right upper quadrant pain Is this a current diagnosis for this admission?: Yes (4) Anemia Qualifiers: Anemia type: other cause Other causes of anemia: chronic disease, other Qualified Code(s): D63.8 - Anemia in other chronic diseases classified elsewhere Is this a current diagnosis for this admission?: Yes (5) Urinary tract infection Is this a current diagnosis for this admission?: No (6) Pleural effusion Is this a current diagnosis for this admission?: Yes (7) Hepatic encephalopathy Is this a current diagnosis for this admission?: Yes (8) Hypothermia Qualifiers: Encounter type: sequela Qualified Code(s): T68.XXXS - Hypothermia, sequela Is this a current diagnosis for this admission?: Yes (9) Increased ammonia level Is this a current diagnosis for this admission?: Yes (10) Lactic acidosis Is this a current diagnosis for this admission?: Yes (11) Pancytopenia Is this a current diagnosis for this admission?: Yes (12) Cirrhosis Qualifiers: Hepatic cirrhosis type: unspecified hepatic cirrhosis Ascites presence: with ascites Qualified Code(s): K74.60 - Unspecified cirrhosis of liver; R18.8 - Other ascites Is this a current diagnosis for this admission?: Yes (13) Chronic liver failure Qualifiers: Hepatic coma status: without hepatic coma Qualified Code(s): K72.10 - Chronic hepatic failure without coma Is this a current diagnosis for this admission?: Yes - Time Time Spent with patient: 60 minutes Time Spent: Greater than 70 Minutes Total Critical Time (Minutes): 30 Medications reviewed and adjusted accordingly: Yes Anticipated discharge: [facility] Within: when bed available Disposition: to [facility] for hepatology evaluation - Inpatient Certification Based on my medical assessment, after consideration of the patient's comorbidit ies, presenting symptoms, or acuity I expect that the services needed warrant INPATIENT care.: Yes I certify that my determination is in accordance with my understanding of Me jovan's requirements for reasonable and necessary INPATIENT services [42 CFR 412.3e].: Yes Medical Necessity: Failure to Improve With Outpatient Therapy, Significant Comorbidiites Make Outpatient Treatment Too Risky, Need Close Monitoring Due to Risk of Patient Decompensation, Need For IV Fluids, Need for Neurological Checks, Need for IV Antibiotics, Risk of Complication if Not Cared For in Hospital, Risk of Diagnosis Which Will Require Inpatient Eval/Care/Monitoring - Plan Summary Plan Summary: 68yo F with DM, CHF, Cirrhosis and chronic liver failure s/p TIPS procedure. Patient has a history of frequent UTI's, numerous episodes of hepatic encephalopathy and countless GI bleeds due to esophageal varices. She is on fairly high dose lactulose and rifaximin at baseline (which is given very dilligently by her ) yet still has an ammonia of 129 after lactulose administration. Her hypothermia, borderline blood pressure and altered mental status are concerning for possible sepsis, however, she has other very concerning findings on her exam. Her urine has a few bacteria but no LE or nitrite and is likely not a cause of her infection. Her CXR shows bilateral pleural effusions and likely a small pericardial effusion which skews evaluation of the bases but there does not appear to be a consolidation. The patient is very tender to palpation in her right upper quadrant and has been for a few days (gallbladder already removed). That in addition to her acute change in baseline/elevated ammonia despite treatment is concerning for progression of her liver failure. In addition, as she does have some visible varicosities and although they may be present all the time at baseline, pain in the right upper quadrant with worsening edema and recurrence of red emesis (has been years since last episode of GI hemorrhage) may indicate increasing portal hypertension due to an obstruction or other issue with her shunt. Although all of this may be due to a simple infection, the patient would best be addressed by a center with a men's locker room attendant, interventional radiology capability and a transplant care team. The patient is already seen by a transplant surgeon at [facility] for her medical issues and was there just last week. Although additional imaging may give us a definitive diagnosis I would not recommend delaying transfer to perform that imaging. Continue broad spectrum ABX, active rewarming, lactulose administration, supplemental oxygen, IV fluids and other supportive care measures throughout the transfer. Thank you for this consult. Will be available should need arise while awaiting transfer.
[2019-03-14 16:27] LABS: A TYPE INFLUENZA AG NEGATIVE (NEGATIVE); B INFLUENZA AG NEGATIVE (NEGATIVE)
--- NOTE | 2019-03-14 17:25 | RADIOLOGY REPORT (SQ) ---
EXAM DESCRIPTION: U/S ABDOMEN LIMITED W/O DOP COMPLETED DATE/TIME: 03/14/2019 5:06 pm REASON FOR STUDY: ascites, rule out SBP COMPARISON: None. TECHNIQUE: Limited Static and real time hay scale imaging performed of the 4 abdominal quadrants an d the midline. LIMITATIONS: None. FINDINGS: ASCITES: Trace amount right upper quadrant. OTHER: No other significant finding. IMPRESSION: Inadequate volume for paracentesis. TECHNICAL DOCUMENTATION: JOB ID: [id number] [employer]- All Rights Reserved Reading location - IP/workstation name: [email or web address]
[2019-03-14] MEDS ORDERED: MORPHINE SULFATE 10 MG/ML INJ IV ONE (17:28)
--- NOTE | 2019-03-14 18:33 | RADIOLOGY REPORT (SQ) ---
EXAM DESCRIPTION: U/S ABDOMEN COMPLETE W/DOPPLER COMPLETED DATE/TIME: 03/14/2019 6:20 pm REASON FOR STUDY: liver/portal vein, evaluate TIPS COMPARISON: None. TECHNIQUE: Dynamic and static grayscale images acquired of the abdomen and recorded on PACS. Additio nal selected color Doppler and spectral images recorded. Note: Study does not meet criteria for complete doppler/duplex scan LIMITATIONS: None. FINDINGS: PANCREAS: No masses. Visualized pancreatic duct normal caliber. LIVER: 2 cm cyst right lobe. LIVER VASCULATURE: Patent TIPS shunt. Patent portal and hepatic veins. GALLBLADDER: No stones. Normal wall thickness. No pericholecystic fluid. ULTRASOUND-DETECTED GAONA'S SIGN: Negative. INTRAHEPATIC DUCTS AND COMMON DUCT: CBD and intrahepatic ducts normal caliber. No filling defects. INFERIOR VENA CAVA: Normal flow. AORTA: No aneurysm. RIGHT KIDNEY: Normal size. Normal echogenicity. No solid or suspicious masses. No hydronephros is. No calcifications. LEFT KIDNEY: Normal size. Normal echogenicity. No solid or suspicious masses. No hydronephrosi s. No calcifications. SPLEEN: Normal size. No solid masses. PERITONEAL AND PLEURAL SPACES: No ascites or effusions. OTHER: No other significant finding. IMPRESSION: Patent TIPS shunt. No ascites. TECHNICAL DOCUMENTATION: JOB ID: [id number] [employer]- All Rights Reserved Reading location - IP/workstation name: [email or web address]
[2019-03-14] MEDS: LACTULOSE SYRUP 20 GM/30 ML UDCUP PO SCH (18:39)
--- NOTE | 2019-03-14 19:10 | RADIOLOGY REPORT (SQ) ---
EXAM DESCRIPTION: CT ABD/PELVIS WITH IV ONLY COMPLETED DATE/TIME: 03/14/2019 6:35 pm REASON FOR STUDY: abd pain, distention, hx liver cirrhosis and TIPS COMPARISON: None. TECHNIQUE: CT scan of the abdomen and pelvis performed using helical scanning technique with dynamic intravenous contrast injection. No oral contrast. Images reviewed with lung, soft tissue, and bone windows. Reconstructed coronal and sagittal MPR images reviewed. Delayed images for evaluation of the urinary system also acquired. All images stored on PACS. All CT scanners at this facility use dose modulation, iterative reconstruction, and/or weight based d osing when appropriate to reduce radiation dose to as low as reasonably achievable (ALARA). [facility]: Dose Right [facility]: CareDose [facility]: Dose Right [facility]: Teradose 4D [facility]: ContentWatch CONTRAST TYPE AND DOSE: Not available. RENAL FUNCTION: BUN 34 creatinine 1.3 RADIATION DOSE: CT Rad equipment meets quality standard of care and radiation dose reduction techniq ues were employed. CTDIvol: 11.6 - 16.0 mGy. DLP: 1506 mGy-cm.. LIMITATIONS: Motion. Positioning. FINDINGS: LOWER CHEST: Cardiomegaly. Bilateral pleural effusions, right greater than left. Volume on the right estimated 1 L. Dependent atelectasis. LIVER: Small cyst. Tips shunt. No solid mass identified. SPLEEN: Borderline splenomegaly. No focal lesions. PANCREAS: No masses. No significant calcifications. No adjacent inflammation or peripancreatic fluid collections. Pancreatic duct not dilated. GALLBLADDER: No identified stones by CT criteria. No inflammatory changes to suggest cholecystitis. ADRENAL GLANDS: No significant masses or asymmetry. RIGHT KIDNEY AND URETER: No solid masses. No significant calcifications. No hydronephrosis or hyd roureter. LEFT KIDNEY AND URETER: No solid masses. No significant calcifications. No hydronephrosis or hydr oureter. AORTA AND VESSELS: No aneurysm. Gastric and splenic varices. RETROPERITONEUM: No retroperitoneal adenopathy, hemorrhage or masses. BOWEL AND PERITONEAL CAVITY: Trace amount of ascites. No dilated bowel. Sigmoid diverticulosis. APPENDIX: Not visualized. PELVIS: Free fluid. Mckenzie catheter in urinary bladder. ABDOMINAL WALL: Body wall edema. BONES: Compression fracture L1 estimated 75% height loss. No significant retropulsion OTHER: No other significant finding. IMPRESSION: 1. Cirrhosis status post TIPS. Trace of ascites. Gastric and splenic varices. 2. Chronic pleural effusions. Body wall edema. 3. Sigmoid diverticulosis without evidence of diverticulitis. TECHNICAL DOCUMENTATION: JOB ID: [id number] Quality ID # [id number]: Final reports with documentation of one or more dose reduction techniques (e.g., Au tomated exposure control, adjustment of the mA and/or kV according to patient size, use of iterative reconstruction technique) 2010 [employer]- All Rights Reserved Reading location - IP/workstation name: [email or web address]
[2019-03-14] MEDS ORDERED: RINGERS SOLUTION,LACTATED 1,000 ML IV PRN (19:56)
[2019-03-14] MEDS ORDERED: GLUCAGON,HUMAN RECOMB 1 MG INJ SUBCUT PRN (19:56)
[2019-03-14] MEDS ORDERED: DEXTROSE 40% GEL 15 GM TUBE PO PRN ×2 (19:56)
[2019-03-14] MEDS ORDERED: DEXTROSE 50%-WATER 25 GM/50 ML DISP.SYRIN IV PRN (19:56)
--- NOTE | 2019-03-14 21:26 | EKG REPORT ---
SEVERITY:- ABNORMAL ECG - SINUS RHYTHM LOW VOLTAGE THROUGHOUT BORDERLINE T ABNORMALITIES, ANT-LAT LEADS BORDERLINE PROLONGED QT INTERVAL : Confirmed by: Kelly Awad MD 14-Mar-2019 21:26:02
[2019-03-14 21:49] LABS: ABSOLUTE LYMPHOCYTES (AUTO) 0.3 10^3/uL (0.5-4.7); ABSOLUTE MONOCYTES (AUTO) 0.4 10^3/uL (0.1-1.4); ABSOLUTE NEUT (AUTO) 4.7 10^3/uL (1.7-8.2); BASOPHILS % (AUTO) 0.3 % (0-2); EOSINOPHILS % (AUTO) 0.3 % (0-6); HEMATOCRIT 25.7 % (36.0-47.0); LYMPHOCYTES % (AUTO) 5.9 % (13-45); MEAN CORPUSCULAR HGB CONC 31.1 g/dL (32.0-36.0); MEAN CORPUSCULAR VOLUME 74 fl (80-97); MONOCYTES % (AUTO) 6.7 % (3-13); RED BLOOD COUNT 3.49 10^6/uL (3.72-5.28); RED CELL DISTRIBUTION WIDTH 29.3 % (11.5-14.0); SEGMENTED NEUTROPHILS % (AUTO) 86.8 % (42-78); TOTAL CELLS COUNTED % (AUTO) 100 %; WHITE BLOOD COUNT 5.4 10^3/uL (4.0-10.5)
[2019-03-14 21:50] LABS: PLATELET COUNT 99 10^3/uL (150-450)
[2019-03-14 22:08] LABS: ALBUMIN 2.7 g/dL (3.5-5.0); ALKALINE PHOSPHATASE 129 U/L (38-126); ANION GAP 9 (5-19); ASPARTATE AMINO TRANSFERASE 28 U/L (14-36); BILIRUBIN,DIRECT 1.9 mg/dL (0.0-0.4); BILIRUBIN,TOTAL 2.6 mg/dL (0.2-1.3); BLOOD UREA NITROGEN 30 mg/dL (7-20); CALCIUM 9.2 mg/dL (8.4-10.2); CARBON DIOXIDE 24 mmol/L (22-30); CHLORIDE 108 mmol/L (98-107); PHOSPHORUS 4.6 mg/dL (2.5-4.5); POTASSIUM 3.8 mmol/L (3.6-5.0); TOTAL PROTEIN 6.7 g/dL (6.3-8.2)
[2019-03-14 22:11] LABS: ANISOCYTOSIS 4+; HYPOCHROMASIA 3+; PLATELET COMMENT DECREASED
[2019-03-14] MEDS ORDERED: INFLUENZA QUAD (6MOS+) 2019-20 VAC 0.5 ML SYR IM ONE (22:11)
[2019-03-14] MEDS: DEXTROSE 50%-WATER 25 GM/50 ML DISP.SYRIN IV PRN (22:23)
[2019-03-14 22:39] LABS: GLUCOSE < 20 mg/dL (75-110)
[2019-03-14] MEDS ORDERED: DEXTROSE 10%-WATER 1,000 ML IV PRN (23:30)
[2019-03-14] MEDS ORDERED: OCTREOTIDE ACETATE INJ/PF 100 MCG/1 ML SDV IV ONE (23:38)
[2019-03-15] MEDS ORDERED: PANTOPRAZOLE SODIUM 40 MG VIAL IV ONE (00:45)
[2019-03-15] MEDS: DEXTROSE 10%-WATER 1,000 ML IV PRN ×2 (01:30→16:18)
--- NOTE | 2019-03-15 01:43 | CRITICAL CARE ADMISSION REPORT ---
HPI Date:: 03/14/19 Time:: 22:15 Reason for ICU Reason:: hepatic encephalopathy, hypothermia HPI: As per HPI from ICU consult done by Dr. Mckeon "68yo F with history of cirrhosis and significant portal hypertension. She has had countless episodes of gastroesophageal variceal bleeding, admissions for hepatic encephalopathy and other infections related to her ascites. Five years ago she underwent a TIPS procedure because of her severe portal hypertension/variceal disease and the shunt has been working well. 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 She takes numerous medications but most notably she is on rifaximin and lactulose for chronic hyperammonemia. This morning, her woke up to his alarm at 0700 to get her lactulose dose and when he looked at his he found her lying in a puddle of vomit that appeared red in color. He states that it did not look like blood but was red tinged. He checked her blood sugar and noted that she was hypoglycemic (70's) so he gave her orange juice and cleaned her up but she seemed altered so he called 911. Because of her history of hepatic encephalopathy he also gave her a dose of lactulose. Upon arrival she was found to have a glucose of 93 but was still altered. Her point of care lactate was high and she was hypothermic (94.7 F) and borderline hypotensive. Workup at our ER showed a normal WBC, a fairly stable chronic anemia (compared to prior labs) a lactate of 2.6 and an ammonia level of 129." ED called with concerns that pt was persistently hypothermic, hypotensive and altered. On assessment in the ED, RN was in the room with pt attempting to place second IV line. Pt was wrapped in several blankets with warmer in place. She was groaning but not interactive or responsive to verbal or tactile stimuli in a purposeful manor. RN stated that pts had left for the night. CT abdomen Decision was made to admit pt to ICU for hepatic encephalopathy, AMS, hypothermia and hematemesis with hx of large gastroesophageal varices. - Diagnosis/Plan (1) Hypoglycemia Is this a current diagnosis for this admission?: Yes (2) Abdominal pain Qualifiers: Abdominal location: right upper quadrant Qualified Code(s): R10.11 - Right upper quadrant pain Is this a current diagnosis for this admission?: Yes (3) Anemia Qualifiers: Anemia type: other cause Other causes of anemia: chronic disease, other Qualified Code(s): D63.8 - Anemia in other chronic diseases classified elsewhere Is this a current diagnosis for this admission?: Yes (4) CHF (congestive heart failure) Qualifiers: Heart failure type: unspecified Heart failure chronicity: chronic Qualified Code(s): I50.9 - Heart failure, unspecified Is this a current diagnosis for this admission?: Yes (5) Chronic liver failure Qualifiers: Hepatic coma status: without hepatic coma Qualified Code(s): K72.10 - Chronic hepatic failure without coma Is this a current diagnosis for this admission?: Yes (6) Cirrhosis Qualifiers: Hepatic cirrhosis type: unspecified hepatic cirrhosis Ascites presence: with ascites Qualified Code(s): K74.60 - Unspecified cirrhosis of liver; R18.8 - Other ascites Is this a current diagnosis for this admission?: Yes (7) Hepatic encephalopathy Is this a current diagnosis for this admission?: Yes (8) Hypothermia Qualifiers: Encounter type: sequela Qualified Code(s): T68.XXXS - Hypothermia, sequela Is this a current diagnosis for this admission?: Yes (9) Increased ammonia level Is this a current diagnosis for this admission?: Yes (10) Lactic acidosis Is this a current diagnosis for this admission?: Yes (11) Pleural effusion Is this a current diagnosis for this admission?: Yes (12) Portal hypertension Is this a current diagnosis for this admission?: Yes (13) Urinary tract infection Is this a current diagnosis for this admission?: Yes - . Plan Summary: Pulm: * maintain pulse ox monitoring - supplemental O2 to maintain oxygen sats >89% * CT showing bilateral pleural effusions R>L with estimated 1L volume in Right side - encourage cough and deep breathing, HOB >30, avoid excessive fluid volume * careful aspiration precautions CV: * Hx of CHF - noted edema and pleural effusions - avoid unnecessary IV fluids, continue diuretics * Questionable pericardial effusion on xray - echo pending * EKG showing prolonged QTc of 503 - monitor and avoid QTf prolonging medications Neuro: * AMS - hepatic encephalopathy vs hypoglycemia - mentation improved once in ICU after ammonia level resulted as lower than on arrival and glucose of 24 was treated - will continue to monitor and treat both * Q2h neuro assessments to assess for acute changes * CT abd/pel noted L1 fracture with 75% height loss - unclear if this is new * Pain to abdomen - avoid excessive opioids Renal: * Maintain finnegan for strict I&O, trend renal indices, replace lytes PRN * hx of frequent UTI - few bacteria without nitrites or LE on UA GI: * Hx of chrrhosis with chronic liver failure s/p TIPS - US abdomen showing patent TIPS shunts * Hx of previous gastroesophageal varices with bleeding - reported bleeding this AM - protonix, bolus dose of octriotide, NPO * CT abd/pel showing ascites and free fluid in pelvis with hx of abdominal infections - cover for SBP Endo: * Hx of DM with hypoglycemia - noted to be persistently hypoglycemia on arrival to ICU despite dextrose boluses - started on D10, Q1hr POC * TSH stable ID: * WBC stable - will continue to monitor * hypothermia - continue rewarming measures, improving with normalization of blood glucose * Continue ppx treatment of SBP with Ceftriaxone MSK/Skin * turn Q2hr Dispo: ED contacted [facility] for transport of patient and reported that she had been accepted but placed on a wait list for a bed. Called transfer center at [facility] to update regarding admission to ICU; awaiting call back from ICU. Past Medical History Cardiac Medical History: Reports: Congestive Heart Failure, Hypertension Pulmonary Medical History: Reports: Chronic Obstructive Pulmonary Disease (COPD) EENT Medical History: Reports: Other - Gastroesophageal Varices Neurological Medical History: Reports: Other - Hepatic Encephalopathy Endocrine Medical History: Reports: Diabetes Mellitus Type 1, Diabetes Mellitus Type 2, Hypothyroidism Renal/ Medical History: Reports: Other - Frequent UTI's Malignancy Medical History: Reports: None GI Medical History: Reports: Cirrhosis, Gastroesophageal Reflux Disease, Other - gastroesophageal varices, GI bleeding Musculoskeltal Medical History: Reports: None, Arthritis Psychiatric Medical History: Reports: None Denies: Depression Traumatic Medical History: Reports: None Hematology: Reports: Anemia, Other - Gastroesophageal Varices Infectious Medical History: Reports: None Past Surgical History Past Surgical History: Reports: Section - x2, Cholecystectomy, Daniel iorrhaphy, Hysterectomy, Orthopedic Surgery, Other - Tips procedure Social/Family History - Social History Lives with: Spouse/Significant other Smoking Status: Never Smoker Frequency of Alcohol Use: None Hx Recreational Drug Use: No Drugs: None Hx Prescription Drug Abuse: No - Medication/Allergies Home Medications: Benzonatate [Tessalon Perles 100 mg Capsule] 100 mg PO Q8HP PRN 03/14/19 Cyanocobalamin (Vitamin B-12) [Vitamin B-12 1000 Mcg Tablet] 1,000 mcg PO DAILY 03/14/19 Ferrous Sulfate [Feosol 325 mg Tablet] 325 mg PO BID 03/14/19 Furosemide [Lasix 40 mg Tablet] 20 mg PO BID 03/14/19 Insulin Aspart [Novolog Flexpen] 0 units SUBCUT .SLIDING SCALE 03/14/19 Insulin Degludec [Tresiba Flextouch U-200] 16 units SUBCUT BID 03/14/19 Lactulose [Cephulac Syrup 20 gm/30 ml Udcup] 20 gm PO TID 03/14/19 Levothyroxine Sodium 150 mcg PO Q6AM 03/14/19 Magnesium Oxide [Magnesium] 250 mg PO DAILY 03/14/19 Multivitamin [Tab-A-Natalia (Multiple Vitamin) Tablet] 1 tab PO DAILY 03/14/19 Pantoprazole Sodium [Protonix [address] Tablet] 40 mg PO QAM 03/14/19 Potassium Chloride [Klor-Con M20] 20 mg PO DAILY 03/14/19 Rifaximin [Xifaxan 550 mg Tablet] 550 mg PO Q12 03/14/19 Spironolactone [Aldactone] 50 mg PO DAILY 03/14/19 Ursodiol [Actigall 300 mg Capsule] 300 mg PO Q12 03/14/19 Allergies/Adverse Reactions: No Known Allergies Allergy (Verified 09/11/18 12:48) Review of Systems ROS unobtainable: Due to mental status Physical Exam Vital Signs: Temp Pulse Resp BP Pulse Ox 95.9 F L 100 16 117/51 L 100 03/14/19 21:48 03/14/19 21:48 03/14/19 22:00 03/14/19 21:53 03/14/19 22:00 Intake & Output 03/13/19 03/14/19 03/15/19 06:59 06:59 06:59 Intake Total 0 Output Total 1200 Balance 850 Weight 66.1 kg Weight/Height Weight 66.1 kg Height 5 ft 4 in General appearance: PRESENT: mild distress - groaning, well-nourished Head exam: PRESENT: atraumatic, normocephalic Eye exam: PRESENT: EOMI, PERRLA, scleral icterus. ABSENT: nystagmus Ear exam: PRESENT: normal external ear exam Mouth exam: PRESENT: moist, tongue midline Throat exam: ABSENT: post pharyngeal erythema Neck exam: ABSENT: JVD, tracheal deviation Respiratory exam: PRESENT: crackles - bilaterally, tachypnea. ABSENT: accessory muscle use, retraction, wheezes Cardiovascular exam: PRESENT: RRR, +S1, +S2 Pulses: PRESENT: normal radial pulses, normal dorsalis pedis pul GI/Abdominal exam: PRESENT: ascites, diminished bowel sounds, tenderness - RUQ. ABSENT: mass, organolmegaly Rectal exam: PRESENT: deferred Extremities exam: PRESENT: pedal edema, tenderness Neurological exam: PRESENT: alert Skin exam: PRESENT: dry, jaundice Laboratory/Radiographs Laboratory Results: 03/14/19 21:35 03/14/19 21:35 03/14/19 03/14/19 03/14/19 10:30 10:30 10:30 WBC 3.4 L RBC 3.37 L Hgb 7.7 L Hct 25.2 L MCV 75 L MCH 22.9 L MCHC 30.7 L RDW 28.2 H Plt Count 85 L Seg Neutrophils % 74.6 VBG pH VBG pCO2 VBG HCO3 VBG Base Excess Sodium 140.8 Potassium 4.4 Chloride 105 Carbon Dioxide 23 Anion Gap 13 BUN 34 H Creatinine 1.30 H Est GFR ( Amer) 49 L Glucose 88 Lactic Acid Calcium 8.9 Phosphorus Magnesium 2.2 Total Bilirubin 2.9 H AST 37 H Alkaline Phosphatase 128 H Ammonia 129.3 H Total Protein 7.1 Albumin 2.8 L TSH Urine Color Urine Appearance Urine pH Ur Specific [place] Urine Protein Urine Glucose (UA) Urine Ketones Urine Blood Urine Nitrite Ur Leukocyte Esterase Urine WBC (Auto) Urine RBC (Auto) Blood Type Antibody Screen 03/14/19 03/14/19 03/14/19 10:30 11:50 12:28 WBC RBC Hgb Hct MCV MCH MCHC RDW Plt Count Seg Neutrophils % VBG pH VBG pCO2 VBG HCO3 VBG Base Excess Sodium Potassium Chloride Carbon Dioxide Anion Gap BUN Creatinine Est GFR ( Amer) Glucose Lactic Acid 2.7 H Calcium Phosphorus Magnesium Total Bilirubin AST Alkaline Phosphatase Ammonia Total Protein Albumin TSH Urine Color [place] Urine Appearance SLIGHTLY-CLOUDY Urine pH 5.0 Ur Specific [place] 1.012 Urine Protein NEGATIVE Urine Glucose (UA) NEGATIVE Urine Ketones NEGATIVE Urine Blood NEGATIVE Urine Nitrite NEGATIVE Ur Leukocyte Esterase NEGATIVE Urine WBC (Auto) 3 Urine RBC (Auto) 1 Blood Type AB POSITIVE Antibody Screen NEGATIVE 03/14/19 03/14/19 03/14/19 12:33 14:46 17:23 WBC RBC Hgb Hct MCV MCH MCHC RDW Plt Count Seg Neutrophils % VBG pH 7.45 H VBG pCO2 27.4 L VBG HCO3 18.7 L VBG Base Excess -4.6 Sodium Potassium Chloride Carbon Dioxide Anion Gap BUN Creatinine Est GFR ( Amer) Glucose Lactic Acid 1.3 1.6 Calcium Phosphorus Magnesium Total Bilirubin AST Alkaline Phosphatase Ammonia Total Protein Albumin TSH Urine Color Urine Appearance Urine pH Ur Specific [place] Urine Protein Urine Glucose (UA) Urine Ketones Urine Blood Urine Nitrite Ur Leukocyte Esterase Urine WBC (Auto) Urine RBC (Auto) Blood Type Antibody Screen 03/14/19 03/14/19 03/14/19 21:35 21:35 21:35 WBC 5.4 RBC 3.49 L Hgb 8.0 L Hct 25.7 L MCV 74 L MCH 23.0 L MCHC 31.1 L RDW 29.3 H Plt Count 99 L Seg Neutrophils % 86.8 H VBG pH VBG pCO2 VBG HCO3 VBG Base Excess Sodium 140.9 Potassium 3.8 Chloride 108 H Carbon Dioxide 24 Anion Gap 9 BUN 30 H Creatinine 1.30 H Est GFR ( Amer) 49 L Glucose < 20 L* Lactic Acid Calcium 9.2 Phosphorus 4.6 H Magnesium 2.1 Total Bilirubin 2.6 H AST 28 Alkaline Phosphatase 129 H Ammonia Total Protein 6.7 Albumin 2.7 L TSH 0.53 Urine Color Urine Appearance Urine pH Ur Specific [place] Urine Protein Urine Glucose (UA) Urine Ketones Urine Blood Urine Nitrite Ur Leukocyte Esterase Urine WBC (Auto) Urine RBC (Auto) Blood Type Antibody Screen 03/14/19 21:35 WBC RBC Hgb Hct MCV MCH MCHC RDW Plt Count Seg Neutrophils % VBG pH VBG pCO2 VBG HCO3 VBG Base Excess Sodium Potassium Chloride Carbon Dioxide Anion Gap BUN Creatinine Est GFR ( Amer) Glucose Lactic Acid Calcium Phosphorus Magnesium Total Bilirubin AST Alkaline Phosphatase Ammonia 58.5 H Total Protein Albumin TSH Urine Color Urine Appearance Urine pH Ur Specific [place] Urine Protein Urine Glucose (UA) Urine Ketones Urine Blood Urine Nitrite Ur Leukocyte Esterase Urine WBC (Auto) Urine RBC (Auto) Blood Type Antibody Screen Impressions: Chest X-Ray 03/14/19 10:55 IMPRESSION: Bibasilar pleural and parenchymal opacities that obscure the contours of the hemidiaphragms and blunt the costophrenic sulci. These opacities could represent a combination of pleural fluid, atelectasis and/or pneumonia. Abdomen Ultrasound 03/14/19 17:05 IMPRESSION: Patent TIPS shunt. No ascites. Abdomen/Pelvis CT 03/14/19 17:05 IMPRESSION: 1. Cirrhosis status post TIPS. Trace of ascites. Gastric and splenic varices. 2. Chronic pleural effusions. Body wall edema. 3. Sigmoid diverticulosis without evidence of diverticulitis. Critical Time Critical Time (minutes): 60 -: The care of a critically ill patient is dynamic. This note represents a static moment in the admission process. Orders and treatments may be given simultaneously and urgently, and time is not sales representative consultant of the treatment process. This patient requires Critical Care secondary to life threatening organ or limb dysfunction. Without Critical Care services, the patient is at risk for increased mortality and morbidity.
--- NOTE | 2019-03-15 02:23 | Progress Note ---
Provider Note Provider Note: Spoke to Dr. Isma Leslie at [facility] ICU. Updated him on patient admission to ICU and current status. Pt has been accepted to ICU at [facility] at placed on wait list at this time as there are currently no available beds. Accepting physician is Dr. Jazmine Calero.
[2019-03-15] MEDS: DEXTROSE 50%-WATER 25 GM/50 ML DISP.SYRIN IV PRN (02:49)
[2019-03-15 04:21] LABS: HEMATOCRIT 26.9 % (36.0-47.0); HEMOGLOBIN 8.4 g/dL (12.0-15.5); MEAN CORPUSCULAR HEMOGLOBIN 23.3 pg (27.0-33.4); MEAN CORPUSCULAR HGB CONC 31.1 g/dL (32.0-36.0); MEAN CORPUSCULAR VOLUME 75 fl (80-97); PLATELET COUNT 110 10^3/uL (150-450); RED CELL DISTRIBUTION WIDTH 28.8 % (11.5-14.0); WHITE BLOOD COUNT 10.5 10^3/uL (4.0-10.5)
[2019-03-15 04:28] LABS: INTERNATIONAL RATION (INR) 1.44; PARTIAL THROMBOPLASTIN TIME 38.2 SEC (23.5-35.8); PROTHROMBIN TIME 17.7 SEC (11.4-15.4)
[2019-03-15 04:38] LABS: ABSOLUTE LYMPHOCYTES# (MANUAL) 0.2 10^3/uL (0.5-4.7); ABSOLUTE MONOCYTES # (MANUAL) 0.3 10^3/uL (0.1-1.4); BAND NEUTROPHILS % (MANUAL) 1 % (3-5); BASOPHILS % (MANUAL) 0 % (0-2); EOSINOPHILS % (MANUAL) 1 % (0-6); LYMPHOCYTES % (MANUAL) 2 % (13-45); MONOCYTES % (MANUAL) 3 % (3-13); SEGMENTED NEUTROPHILS % (MAN) 93 % (42-78); TOTAL CELLS COUNTED 100
[2019-03-15 04:39] LABS: ANISOCYTOSIS 4+; HYPOCHROMASIA SLIGHT; PLATELET COMMENT DECREASED
[2019-03-15 04:45] LABS: ALBUMIN 2.6 g/dL (3.5-5.0); ALKALINE PHOSPHATASE 121 U/L (38-126); ANION GAP 13 (5-19); ASPARTATE AMINO TRANSFERASE 32 U/L (14-36); BILIRUBIN,DIRECT 1.8 mg/dL (0.0-0.4); BILIRUBIN,TOTAL 2.8 mg/dL (0.2-1.3); BLOOD UREA NITROGEN 32 mg/dL (7-20); CALCIUM 8.7 mg/dL (8.4-10.2); CARBON DIOXIDE 21 mmol/L (22-30); CHLORIDE 107 mmol/L (98-107); GLUCOSE 118 mg/dL (75-110); PHOSPHORUS 4.9 mg/dL (2.5-4.5); POTASSIUM 4.2 mmol/L (3.6-5.0); TOTAL PROTEIN 6.6 g/dL (6.3-8.2)
[2019-03-15] MEDS ORDERED: LORAZEPAM INJ 2 MG/1 ML VIAL IV ONE (05:57)
[2019-03-15] MEDS ORDERED: LORAZEPAM INJ 2 MG/1 ML VIAL ONE (06:14)
[2019-03-15] MEDS ORDERED: FUROSEMIDE INJ/PF 20 MG/2 ML SDV IV ONE (06:19)
[2019-03-15] MEDS ORDERED: FUROSEMIDE INJ/PF 20 MG/2 ML SDV ONE (06:29)
--- NOTE | 2019-03-15 09:07 | RADIOLOGY REPORT (SQ) ---
EXAM DESCRIPTION: CHEST SINGLE VIEW COMPLETED DATE/TIME: 03/15/2019 6:10 am REASON FOR STUDY: abnormal breath sounds COMPARISON: 03/14/2019 NUMBER OF VIEWS: One view. TECHNIQUE: Single frontal radiographic view of the chest acquired. LIMITATIONS: None. FINDINGS: LUNGS AND PLEURA: Diffuse interstitial pattern. Small left and moderate right pleural eff usion not significantly changed. MEDIASTINUM AND HILAR STRUCTURES: Stable. HEART AND VASCULATURE: Cardiac enlargement. Vascular congestion. BONES: No acute findings. HARDWARE: None in the chest. OTHER: No other significant finding. IMPRESSION: CHF. No significant change. TECHNICAL DOCUMENTATION: JOB ID: [id number] [employer]- All Rights Reserved Reading location - IP/workstation name: [email or web address]
[2019-03-15] MEDS ORDERED: CEFTRIAXONE 1 GM/D5W RTU 1 GM/50 ML RTUPB IV SCH (10:00)
[2019-03-15] MEDS ORDERED: AZITHROMYCIN INJ 500 MG VIAL IV SCH ×2 (10:00)
[2019-03-15] MEDS: LEVOTHYROXINE SODIUM 0.15 MG TABLET PO SCH (10:46)
[2019-03-15] MEDS: ASCORBIC ACID 500 MG TABLET PO SCH ×2 (10:47→17:12)
[2019-03-15] MEDS: CYANOCOBALAMIN (VITAMIN B-12) 1,000 MCG TABLET PO SCH (10:52)
[2019-03-15] MEDS: FUROSEMIDE INJ/PF 20 MG/2 ML SDV IV SCH (11:05)
[2019-03-15] MEDS: AZITHROMYCIN 500 MG in DEXTROSE 5%-WATER 250 ML IV SCH (11:05)
[2019-03-15] MEDS: PANTOPRAZOLE SODIUM 40 MG VIAL IV SCH ×2 (11:06→21:10)
[2019-03-15] MEDS: CEFTRIAXONE 1 GM/D5W RTU 1 GM/50 ML RTUPB IV SCH (11:06)
--- NOTE | 2019-03-15 11:58 | Operative Report ---
Bedside Procedure - History of Present Illness History of Present Illness: 68yo F with history of cirrhosis and significant portal hypertension. She has had countless episodes of gastroesophageal variceal bleeding, admissions for hepatic encephalopathy and other infections related to her ascites. Five years ago she underwent a TIPS procedure because of her severe portal hypertension/variceal disease and the shunt has been working well. A few days ago she went to her technical maintenance technician because of chronic anemia and during the exam she was noted to be tender in her RUQ. She takes numerous medications but most notably she is on rifaximin and lactulose for chronic hyperammonemia. This morning, her woke up to his alarm at 0700 to get her lactulose dose and when he looked at his he found her lying in a puddle of vomit that appeared red in color. He states that it did not look like blood but was red tinged. He checked her blood sugar and noted that she was hypoglycemic (70's) so he gave her orange juice and cleaned her up but she seemed altered so he called 911. Because of her history of hepatic encephalopathy he also gave her a dose of lactulose. Upon arrival she was found to have a glucose of 93 but was still altered. Her point of care lactate was high and she was hypothermic (94.7 F) a nd borderline hypotensive. Workup at our ER showed a normal WBC, a fairly stable chronic anemia (compared to prior labs) a lactate of 2.6 and an ammonia level of 129. An attempt was made to transfer her to her hepatologists at [facility] but there were no beds available. Decision was made to admit pt to ICU for hepatic encephalopathy, AMS, hypothermia and hematemesis with hx of large gastroesophageal varices. She had a large pleural effusion on the right on admission with a smaller one on the left but on this morning's CXR her effusion was much larger. Additionally, she required HFNC overnight to maintain her oxygen saturation and her work of breathing seemed much more difficult this morning. Because of this the decision was made to drain her right sided effusion. Procedure: Right thoracentesis with pleural catheter placement Pre-Procedure Diagnosis: Right symptomatic pleural effusion Post-Procedure Diagnosis: Same Surgeon: Georgette Mckeon DO Anesthesia: Local field block EBL: none Complications: None Findings: 1200 ml of straw colored, frothing fluid aspirated with additional fluid in canister after procedure. Procedure in detail: After obtaining informed consent from the via phone call the patient was prepped and draped in the usual sterile fashion. A timeout was called. The right chest was then prepped again and sterile field applied as appropriate. The skin over the 7th rib was infiltrated with local anesthetic in the midaxillary line and then a field block was performed of the underlying musculature/in along the intercostal space. An 8Fr catheter with needle introducer was then inserted through a knick in the skin and tunneled up one rib space before entering the pleural cavity. Verification of intrathoracic placement was made by aspirating as the needle was inserted. The catheter was then inserted over the stationary needle and the needle removed. A 3-way stopcock was then atached to the catheter/locked and the catheter secured at the skin level with 0-silk stitches. Using the stopcock and a large syringe a total of 1200ml of serous, frothy fluid was removed. The patient began to cough as her lung re-expanded and ultimately the catheter was left in position with the valve open. It was attached to a pleurivac at -20mm suction and there was good tidline/no air leak. The patient was laid back supine and placed on BiPAP to help use positive pressure to re-expand her lung. Post placement x-ray verified tube in the correct position. Indication for Procedure: Right pleural effusion Date: 03/15/19 Provider: GEORGETTE MCKEON - Chest Tube Right Midaxillary Consent obtained: Yes Chest tube pre-insertion: Sterile PPE donned, Chloraprep applied, Sterile drapes applied Anesthetic type: 1% Lidocaine mL's of anesthetic: 10 Chest tube post-insertion: Sutured, Position confirmed w/ CXR, Low intermittent suction Chest tube drainage: 1200 Number of attempts: 1 Complications: No - Thoracentesis Right Consent obtained: Yes - phone consent from Needle size: 18 - 8Fr catheter left in place Thoracentesis location: right chest mid-axillary line mL's of anesthetic: 10 Amount/type of drainage: 1200 Number of attempts: 1 Ultrasound guided: No Complications: No Notes: 03/15/19 11:56 8Fr thoracostomy catheter left in place to continue drainage.
[2019-03-15 13:05] LABS: FLUID SOURCE LUNG; FLUID TYPE PLEURAL
[2019-03-15 13:06] LABS: FLUID APPEARANCE CLEAR; FLUID COLOR ORANGE; FLUID VISCOSITY LIQUID
[2019-03-15] MEDS: LACTULOSE SYRUP 20 GM/30 ML UDCUP PO SCH ×3 (14:15→17:14)
[2019-03-15] MEDS: URSODIOL 300 MG CAPSULE PO SCH ×3 (14:15→17:12)
[2019-03-15] MEDS: RIFAXIMIN 550 MG TABLET PO SCH ×3 (14:16→17:12)
[2019-03-15] MEDS: ALBUMIN HUMAN 12.5 GM/50 ML RTUINJ IV SCH ×4 (14:17→16:16)
--- NOTE | 2019-03-15 15:30 | PDOC CRITICAL CARE PROG REPORT ---
General Date:: 03/15/19 ICU Day:: 2 Hospital Day:: 2 Events in the past 12 to 24 Hours:: Patient was admitted from [facility] ER last night after [facility] accepted her but said it could be days before they have a room for her. Upon arrival to the ICU she was hypoglycemic to the 20's, hypothermic and still altered. After correcting her glucose, lowering her ammonia and warming her up she became more responsive. Per the family, she is still not herself. Throughout the landscape horticulture instructor she developed worsening shortness of breath and hypoxia but responded well to HFNC. Reason for ICU Addmission:: hepatic encephalopathy, hypothermia Physical Exam Vital Signs: Temp Pulse Resp BP Pulse Ox 97.2 F 74 19 90/39 L 90 L 03/15/19 12:00 03/15/19 12:00 03/15/19 14:00 03/15/19 13:59 03/15/19 14:00 Intake & Output 03/14/19 03/15/19 03/16/19 06:59 06:59 06:59 Intake Total 2050 Output Total 1650 1555 Balance 400 -1555 Weight 63.3 kg Weight/Height Weight 63.3 kg Height 5 ft 4 in General appearance: PRESENT: no acute distress Head exam: PRESENT: atraumatic, normocephalic Eye exam: PRESENT: EOMI, PERRLA, scleral icterus. ABSENT: nystagmus Ear exam: PRESENT: normal external ear exam Mouth exam: PRESENT: moist, tongue midline Neck exam: ABSENT: carotid bruit, JVD, lymphadenopathy, thyromegaly Respiratory exam: PRESENT: decreased breath sounds - bilaterally, symmetrical. ABSENT: rales, rhonchi, wheezes Cardiovascular exam: PRESENT: RRR. ABSENT: diastolic murmur, rubs, systolic murmur Pulses: PRESENT: normal dorsalis pedis pul Vascular exam: PRESENT: normal capillary refill GI/Abdominal exam: PRESENT: normal bowel sounds, soft, tenderness - right upper quadrant. ABSENT: distended, guarding Rectal exam: PRESENT: deferred Extremities exam: PRESENT: +2 edema Musculoskeletal exam: PRESENT: normal inspection Neurological exam: PRESENT: alert, awake, oriented to person, CN II-XII grossly intact. ABSENT: oriented to place, oriented to time, oriented to situation Skin exam: PRESENT: dry, intact, warm. ABSENT: cyanosis, rash Laboratory/Radiographs Laboratory Results: 03/15/19 03:56 03/15/19 03:56 03/14/19 03/14/19 03/14/19 14:46 17:23 21:35 WBC 5.4 RBC 3.49 L Hgb 8.0 L Hct 25.7 L MCV 74 L MCH 23.0 L MCHC 31.1 L RDW 29.3 H Plt Count 99 L Seg Neutrophils % 86.8 H Sodium Potassium Chloride Carbon Dioxide Anion Gap BUN Creatinine Est GFR ( Amer) Glucose Lactic Acid 1.3 1.6 Calcium Phosphorus Magnesium Total Bilirubin AST Alkaline Phosphatase Ammonia Total Protein Albumin TSH Fluid Type Fluid Source Fluid Color Fluid Appearance Fluid Viscosity Fluid WBC Fluid RBC 03/14/19 03/14/19 03/14/19 21:35 21:35 21:35 WBC RBC Hgb Hct MCV MCH MCHC RDW Plt Count Seg Neutrophils % Sodium 140.9 Potassium 3.8 Chloride 108 H Carbon Dioxide 24 Anion Gap 9 BUN 30 H Creatinine 1.30 H Est GFR ( Amer) 49 L Glucose < 20 L* Lactic Acid Calcium 9.2 Phosphorus 4.6 H Magnesium 2.1 Total Bilirubin 2.6 H AST 28 Alkaline Phosphatase 129 H Ammonia 58.5 H Total Protein 6.7 Albumin 2.7 L TSH 0.53 Fluid Type Fluid Source Fluid Color Fluid Appearance Fluid Viscosity Fluid WBC Fluid RBC 03/15/19 03/15/19 03/15/19 03:56 03:56 03:56 WBC 10.5 RBC 3.60 L Hgb 8.4 L Hct 26.9 L MCV 75 L MCH 23.3 L MCHC 31.1 L RDW 28.8 H Plt Count 110 L Seg Neutrophils % Not Reportable Sodium 140.6 Potassium 4.2 Chloride 107 Carbon Dioxide 21 L Anion Gap 13 BUN 32 H Creatinine 1.37 H Est GFR ( Amer) 46 L Glucose 118 H Lactic Acid Calcium 8.7 Phosphorus 4.9 H Magnesium 2.0 Total Bilirubin 2.8 H AST 32 Alkaline Phosphatase 121 Ammonia 57.9 H Total Protein 6.6 Albumin 2.6 L TSH Fluid Type Fluid Source Fluid Color Fluid Appearance Fluid Viscosity Fluid WBC Fluid RBC 03/15/19 10:30 WBC RBC Hgb Hct MCV MCH MCHC RDW Plt Count Seg Neutrophils % Sodium Potassium Chloride Carbon Dioxide Anion Gap BUN Creatinine Est GFR ( Amer) Glucose Lactic Acid Calcium Phosphorus Magnesium Total Bilirubin AST Alkaline Phosphatase Ammonia Total Protein Albumin TSH Fluid Type PLEURAL Fluid Source LUNG Fluid Color ORANGE Fluid Appearance CLEAR Fluid Viscosity LIQUID Fluid WBC 163 Fluid RBC 6920 Impressions: Abdomen Ultrasound 03/14/19 17:05 IMPRESSION: Patent TIPS shunt. No ascites. Abdomen/Pelvis CT 03/14/19 17:05 IMPRESSION: 1. Cirrhosis status post TIPS. Trace of ascites. Gastric and splenic varices. 2. Chronic pleural effusions. Body wall edema. 3. Sigmoid diverticulosis without evidence of diverticulitis. All labs, radiographs, diagnostic studies and EKGs were personally reviewed: Yes In addition, reports of radiographic and diagnostic studies were read: Yes Assessment and Plan - Diagnosis (1) Portal hypertension Is this a current diagnosis for this admission?: Yes (2) CHF (congestive heart failure) Qualifiers: Heart failure type: unspecified Heart failure chronicity: chronic Qualified Code(s): I50.9 - Heart failure, unspecified Is this a current diagnosis for this admission?: Yes (3) Abdominal pain Qualifiers: Abdominal location: right upper quadrant Qualified Code(s): R10.11 - Right upper quadrant pain Is this a current diagnosis for this admission?: Yes (4) Anemia Qualifiers: Anemia type: other cause Other causes of anemia: chronic disease, other Qualified Code(s): D63.8 - Anemia in other chronic diseases classified elsewhere Is this a current diagnosis for this admission?: Yes (5) Urinary tract infection Is this a current diagnosis for this admission?: Yes (6) Pleural effusion Is this a current diagnosis for this admission?: Yes (7) Hepatic encephalopathy Is this a current diagnosis for this admission?: Yes (8) Hypothermia Qualifiers: Encounter type: sequela Qualified Code(s): T68.XXXS - Hypothermia, sequela Is this a current diagnosis for this admission?: Yes (9) Increased ammonia level Is this a current diagnosis for this admission?: Yes (10) Lactic acidosis Is this a current diagnosis for this admission?: Yes (11) Pancytopenia Is this a current diagnosis for this admission?: Yes (12) Cirrhosis Qualifiers: Hepatic cirrhosis type: unspecified hepatic cirrhosis Ascites presence: with ascites Qualified Code(s): K74.60 - Unspecified cirrhosis of liver; R18.8 - Other ascites Is this a current diagnosis for this admission?: Yes (13) Chronic liver failure Qualifiers: Hepatic coma status: without hepatic coma Qualified Code(s): K72.10 - Chronic hepatic failure without coma Is this a current diagnosis for this admission?: Yes Plan Summary: 68yo F with chronic liver failure due to unknown cause. Patient better than yesterday but still altered and requiring BiPAP. This morning her SPO2 decreased and she was tachypnic with a worsening effusion on her right side. An 8Fr pleural catheter was inserted into the chest to drain the fluid and left in place. Fluid analysis ordered and pending. In addition, she was given numerous home meds today and we will continue BiPAP after the procedure to help reinflate her lung. [facility] transfer still pending though not likely as she is getting slighly better. Critical Time Critical Time (minutes): 60 Level of Care: ICU -: 1. The care of a critical patient is a dynamic process. This note is a floor representative synopsis but static in nature. The timeframe for treatments given in order is not necessarily the actual time these treatments may have been done. 2. This patient requires critical care secondary to ongoing requirements for therapy not offered or safe outside the critical care environment. Transfer to a lower level of care will result in altered life or limb morbidity and mortality. 3. Multidisciplinary rounds completed. 4. ABCDE bundle addressed.
--- NOTE | 2019-03-15 15:32 | RADIOLOGY REPORT (SQ) ---
EXAM DESCRIPTION: CHEST SINGLE VIEW COMPLETED DATE/TIME: 03/15/2019 3:10 pm REASON FOR STUDY: CHEST TUBE COMPARISON: Earlier same day. NUMBER OF VIEWS: One view. TECHNIQUE: Single frontal radiographic image of the chest acquired. LIMITATIONS: None. FINDINGS: LUNGS AND PLEURA: Improved aeration in the right lung status post chest tube placement. R ight basilar pneumothorax estimated 10%. Left lung is unchanged. MEDIASTINUM AND HEART: Stable heart size and mediastinal structures. SUPPORT DEVICES: Small bore chest tube overlies right cardiophrenic angle. BONY STRUCTURES: No acute findings. HARDWARE: None. OTHER: No other significant finding. IMPRESSION: Small right basilar pneumothorax status post thoracentesis. Reading location - IP/workstation name: [email or web address]
[2019-03-15] MEDS ORDERED: ALBUMIN HUMAN IV ONE (17:00)
[2019-03-15] MEDS ORDERED: MIDODRINE HCL 5 MG TABLET PO SCH (17:00)
[2019-03-15] MEDS: FERROUS SULFATE 325 MG TABLET PO SCH (17:12)
[2019-03-15] MEDS ORDERED: HYDROCORTISONE SOD SUCCINATE INJ/PF 100 MG/2 ML SDV IV ONE (19:15)
[2019-03-15 19:21] LABS: ALBUMIN 3.4 g/dL (3.5-5.0); ALKALINE PHOSPHATASE 80 U/L (38-126); ANION GAP 13 (5-19); ASPARTATE AMINO TRANSFERASE 23 U/L (14-36); BILIRUBIN,DIRECT 1.2 mg/dL (0.0-0.4); BILIRUBIN,TOTAL 2.6 mg/dL (0.2-1.3); BLOOD UREA NITROGEN 28 mg/dL (7-20); CALCIUM 8.9 mg/dL (8.4-10.2); CARBON DIOXIDE 21 mmol/L (22-30); CHLORIDE 102 mmol/L (98-107); GLUCOSE 156 mg/dL (75-110); PHOSPHORUS 4.2 mg/dL (2.5-4.5); POTASSIUM 3.9 mmol/L (3.6-5.0); TOTAL PROTEIN 6.5 g/dL (6.3-8.2)
[2019-03-15 20:20] LABS: ABSOLUTE EOSINOPHILS # (AUTO) 0.1 10^3/uL (0.0-0.6); ABSOLUTE LYMPHOCYTES (AUTO) 0.6 10^3/uL (0.5-4.7); ABSOLUTE MONOCYTES (AUTO) 0.3 10^3/uL (0.1-1.4); ABSOLUTE NEUT (AUTO) 7.6 10^3/uL (1.7-8.2); BASOPHILS % (AUTO) 0.3 % (0-2); EOSINOPHILS % (AUTO) 0.9 % (0-6); LYMPHOCYTES % (AUTO) 7.3 % (13-45); MEAN CORPUSCULAR HEMOGLOBIN 23.4 pg (27.0-33.4); MEAN CORPUSCULAR VOLUME 76 fl (80-97); MONOCYTES % (AUTO) 3.6 % (3-13); RED BLOOD COUNT 2.78 10^6/uL (3.72-5.28); RED CELL DISTRIBUTION WIDTH 28.4 % (11.5-14.0); SEGMENTED NEUTROPHILS % (AUTO) 87.9 % (42-78); TOTAL CELLS COUNTED % (AUTO) 100 %; WHITE BLOOD COUNT 8.7 10^3/uL (4.0-10.5)
[2019-03-15 20:38] LABS: HEMOGLOBIN 6.5 g/dL (12.0-15.5); PLATELET COUNT 79 10^3/uL (150-450)
[2019-03-15 20:41] LABS: ANISOCYTOSIS 3+; HYPOCHROMASIA 1+; POIKILOCYTOSIS 1+; POLYCHROMASIA 1+; TEAR DROP CELLS 1+
[2019-03-15 20:43] LABS: PLATELET COMMENT DECREASED
[2019-03-15] MEDS ORDERED: NORMAL SALINE 250 ML IV PRN ×2 (20:47)
[2019-03-15] MEDS: MIDODRINE HCL 5 MG TABLET PO SCH (21:10)
[2019-03-16] MEDS ORDERED: LORAZEPAM INJ 2 MG/1 ML VIAL IV ONE (00:23)
[2019-03-16] MEDS ORDERED: LORAZEPAM INJ 2 MG/1 ML VIAL ONE (00:55)
--- NOTE | 2019-03-16 01:32 | RADIOLOGY REPORT (SQ) ---
EXAM DESCRIPTION: XR CHEST 1 VIEW COMPLETED DATE/TME: 03/16/2019 00:00 CLINICAL HISTORY: 68 years, Female, hypoxia with BiPAP COMPARISON: March 15, 2019 NUMBER OF VIEWS: 1 TECHNIQUE: Portable upright LIMITATIONS: None. FINDINGS: Cardiomediastinal silhouette is enlarged but stable. Left pleural effusion and adjacent airspace disease similar to prior. Reaccumulation of the right pleural effusion. The ex vacuo pneumothorax is no longer identified. A small catheter again projects over the right lung base. No free pneumothorax. IMPRESSION: Reaccumulation of the right basilar pleural effusion copyright 2010 [employer]- All Rights Reserved
[2019-03-16 02:50] LABS: ABSOLUTE LYMPHOCYTES (AUTO) 0.4 10^3/uL (0.5-4.7); ABSOLUTE MONOCYTES (AUTO) 0.1 10^3/uL (0.1-1.4); ABSOLUTE NEUT (AUTO) 6.9 10^3/uL (1.7-8.2); BASOPHILS % (AUTO) 0.2 % (0-2); EOSINOPHILS % (AUTO) 0.1 % (0-6); HEMATOCRIT 25.7 % (36.0-47.0); HEMOGLOBIN 8.1 g/dL (12.0-15.5); LYMPHOCYTES % (AUTO) 5.3 % (13-45); MEAN CORPUSCULAR HEMOGLOBIN 23.8 pg (27.0-33.4); MEAN CORPUSCULAR HGB CONC 31.4 g/dL (32.0-36.0); MEAN CORPUSCULAR VOLUME 76 fl (80-97); MONOCYTES % (AUTO) 1.4 % (3-13); RED BLOOD COUNT 3.39 10^6/uL (3.72-5.28); RED CELL DISTRIBUTION WIDTH 27.1 % (11.5-14.0); TOTAL CELLS COUNTED % (AUTO) 100 %; WHITE BLOOD COUNT 7.4 10^3/uL (4.0-10.5)
[2019-03-16 02:57] LABS: INTERNATIONAL RATION (INR) 1.87; PROTHROMBIN TIME 21.8 SEC (11.4-15.4)
[2019-03-16 02:58] LABS: PARTIAL THROMBOPLASTIN TIME 41.3 SEC (23.5-35.8)
[2019-03-16 03:14] LABS: PLATELET COUNT 75 10^3/uL (150-450)
[2019-03-16 03:15] LABS: ANISOCYTOSIS 4+; BURR CELLS 1+; HYPOCHROMASIA 1+; PLATELET COMMENT DECREASED; POIKILOCYTOSIS 2+; POLYCHROMASIA 1+; TEAR DROP CELLS 1+
[2019-03-16 03:18] LABS: PHOSPHORUS 5.1 mg/dL (2.5-4.5)
[2019-03-16] MEDS: MIDODRINE HCL 5 MG TABLET PO SCH ×3 (05:55→21:08)
[2019-03-16] MEDS: LEVOTHYROXINE SODIUM 0.15 MG TABLET PO SCH (05:55)
[2019-03-16 06:50] LABS: ANION GAP 13 (5-19); BLOOD UREA NITROGEN 33 mg/dL (7-20); CALCIUM 8.6 mg/dL (8.4-10.2); CARBON DIOXIDE 20 mmol/L (22-30); CHLORIDE 101 mmol/L (98-107); GLUCOSE 272 mg/dL (75-110); POTASSIUM 4.4 mmol/L (3.6-5.0)
[2019-03-16] MEDS ORDERED: DEXTROSE 50%-WATER 25 GM/50 ML DISP.SYRIN IV PRN ×2 (09:12)
[2019-03-16] MEDS ORDERED: GLUCAGON,HUMAN RECOMB 1 MG INJ IM PRN (09:12)
[2019-03-16] MEDS ORDERED: DEXTROSE 40% GEL 15 GM TUBE PO PRN ×2 (09:12)
[2019-03-16 09:58] LABS: ALKALINE PHOSPHATASE 87 U/L (38-126); ASPARTATE AMINO TRANSFERASE 26 U/L (14-36); BILIRUBIN,DIRECT 2.6 mg/dL (0.0-0.4); TOTAL PROTEIN 6.1 g/dL (6.3-8.2)
[2019-03-16] MEDS: HYDROCORTISONE SOD SUCCINATE INJ/PF 100 MG/2 ML SDV IV SCH ×3 (11:07→21:08)
[2019-03-16] MEDS: FUROSEMIDE INJ/PF 20 MG/2 ML SDV IV SCH (11:07)
[2019-03-16] MEDS: PANTOPRAZOLE SODIUM 40 MG VIAL IV SCH ×2 (11:08→21:07)
[2019-03-16] MEDS: CEFTRIAXONE 1 GM/D5W RTU 1 GM/50 ML RTUPB IV SCH (11:08)
[2019-03-16] MEDS: AZITHROMYCIN 500 MG in DEXTROSE 5%-WATER 250 ML IV SCH (11:09)
[2019-03-16] MEDS: INSULIN LISPRO 100 UNIT/ML 3 ML VIAL SUBCUT SCH ×3 (11:40→21:57)
[2019-03-16] MEDS: CYANOCOBALAMIN (VITAMIN B-12) 1,000 MCG TABLET PO SCH (12:03)
[2019-03-16] MEDS: ASCORBIC ACID 500 MG TABLET PO SCH ×2 (12:03→18:13)
[2019-03-16] MEDS: LACTULOSE SYRUP 20 GM/30 ML UDCUP PO SCH ×3 (12:03→18:12)
[2019-03-16] MEDS: URSODIOL 300 MG CAPSULE PO SCH ×2 (12:03→18:12)
[2019-03-16] MEDS: FERROUS SULFATE 325 MG TABLET PO SCH ×2 (12:04→18:12)
[2019-03-16] MEDS: RIFAXIMIN 550 MG TABLET PO SCH ×2 (12:04→18:13)
--- NOTE | 2019-03-16 12:54 | PDOC CRITICAL CARE PROG REPORT ---
General Date:: 03/16/19 ICU Day:: 3 Hospital Day:: 3 Resuscitation Status: Full Code Events in the past 12 to 24 Hours:: Patient was more alert yesterday and able to eat but grew very tired by the end of the day. She remained persistently hypoglycemic despite a D10 drip and diet, hypotensive despite midodrine and hypothermic despite active rewarming interventions. A random cortisol was 9.8 and the patient was clinically behaving like she had relative adrenal insufficiency related to her chronic liver disease. When given a bolus of hydrocortisone, her temp increased slightly, her MAP stabilized around 65-68, and her blood sugar spiked to the 200's where it remained elevated even after turning off the D10 drip. Because of her clinical response the decision was made to continue stress dose steroids at this time. Reason for ICU Addmission:: hepatic encephalopathy, hypothermia - Medications: Medications reviewed and adjusted accordingly: Yes Physical Exam Vital Signs: Temp Pulse Resp BP Pulse Ox 96.3 F L 71 14 101/50 L 98 03/16/19 10:00 03/16/19 10:00 03/16/19 10:00 03/16/19 10:00 03/16/19 10:00 Intake & Output 03/15/19 03/16/19 03/17/19 06:59 06:59 06:59 Intake Total 2049 1949 50 Output Total 1649 1974 75 Balance 400 -25 -25 Weight 63.3 kg 66.7 kg Weight/Height Weight 66.7 kg Height 5 ft 4 in General appearance: PRESENT: no acute distress, thin Head exam: PRESENT: atraumatic, normocephalic Eye exam: PRESENT: conjunctiva pale, EOMI, PERRLA, scleral icterus. ABSENT: nystagmus Ear exam: PRESENT: normal external ear exam Mouth exam: PRESENT: moist, tongue midline Neck exam: ABSENT: carotid bruit, JVD, lymphadenopathy, tenderness Respiratory exam: PRESENT: decreased breath sounds, symmetrical, tachypnea. ABSENT: accessory muscle use, chest wall tenderness, rales, retraction, rhonchi, wheezes Cardiovascular exam: PRESENT: RRR. ABSENT: diastolic murmur, systolic murmur Pulses: PRESENT: normal radial pulses, normal dorsalis pedis pul Vascular exam: PRESENT: normal capillary refill GI/Abdominal exam: PRESENT: hypoactive bowel sounds, soft, tenderness. ABSENT: distended, firm, guarding, rebound, rigid Rectal exam: PRESENT: deferred Gentrourinary exam: PRESENT: indwelling catheter Extremities exam: PRESENT: pedal edema, +1 edema. ABSENT: calf tenderness Musculoskeletal exam: PRESENT: normal inspection. ABSENT: deformity Neurological exam: PRESENT: alert, oriented to person, CN II-XII grossly intact. ABSENT: oriented to place, oriented to time, oriented to situation Psychiatric exam: PRESENT: flat affect Skin exam: PRESENT: dry, jaundice Laboratory/Radiographs Laboratory Results: 03/16/19 02:41 03/16/19 02:41 03/14/19 03/15/19 03/15/19 12:28 10:30 18:56 WBC RBC Hgb Hct MCV MCH MCHC RDW Plt Count Seg Neutrophils % Sodium Potassium Chloride Carbon Dioxide Anion Gap BUN Creatinine Est GFR ( Amer) Glucose Calcium Phosphorus Magnesium Total Bilirubin AST Alkaline Phosphatase Ammonia 45.4 H Total Protein Albumin Fluid Type PLEURAL Fluid Source LUNG Fluid Color ORANGE Fluid Appearance CLEAR Fluid Viscosity LIQUID Fluid WBC 163 Fluid RBC 6920 Blood Type AB POSITIVE Antibody Screen NEGATIVE 03/15/19 03/15/19 03/15/19 18:56 18:56 20:06 WBC Cancelled 8.7 RBC Cancelled 2.78 L Hgb Cancelled 6.5 L Hct Cancelled 21.0 L MCV Cancelled 76 L MCH Cancelled 23.4 L MCHC Cancelled 31.0 L RDW Cancelled 28.4 H Plt Count Cancelled 79 L Seg Neutrophils % Cancelled 87.9 H Sodium 136.3 L Potassium 3.9 Chloride 102 Carbon Dioxide 21 L Anion Gap 13 BUN 28 H Creatinine 1.43 H Est GFR ( Amer) 44 L Glucose 156 H Calcium 8.9 Phosphorus 4.2 Magnesium 1.9 Total Bilirubin 2.6 H AST 23 Alkaline Phosphatase 80 Ammonia Total Protein 6.5 Albumin 3.4 L Fluid Type Fluid Source Fluid Color Fluid Appearance Fluid Viscosity Fluid WBC Fluid RBC Blood Type Antibody Screen 03/16/19 03/16/19 03/16/19 02:41 02:41 02:41 WBC 7.4 RBC 3.39 L Hgb 8.1 L Hct 25.7 L MCV 76 L MCH 23.8 L MCHC 31.4 L RDW 27.1 H Plt Count 75 L Seg Neutrophils % 93.0 H Sodium Potassium Chloride Carbon Dioxide Anion Gap BUN Creatinine Est GFR ( Amer) Glucose Calcium Phosphorus 5.1 H Magnesium 2.0 Total Bilirubin AST Alkaline Phosphatase Ammonia 23.0 Total Protein Albumin Fluid Type Fluid Source Fluid Color Fluid Appearance Fluid Viscosity Fluid WBC Fluid RBC Blood Type Antibody Screen 03/16/19 03/16/19 02:41 02:41 WBC RBC Hgb Hct MCV MCH MCHC RDW Plt Count Seg Neutrophils % Sodium 133.8 L Potassium 4.4 Chloride 101 Carbon Dioxide 20 L Anion Gap 13 BUN 33 H Creatinine 1.53 H Est GFR ( Amer) 41 L Glucose 272 H Calcium 8.6 Phosphorus Cancelled Magnesium Cancelled Total Bilirubin 4.0 H AST 26 Alkaline Phosphatase 87 Ammonia Total Protein 6.1 L Albumin 3.0 L Fluid Type Fluid Source Fluid Color Fluid Appearance Fluid Viscosity Fluid WBC Fluid RBC Blood Type Antibody Screen Impressions: Abdomen Ultrasound 03/14/19 17:05 IMPRESSION: Patent TIPS shunt. No ascites. Abdomen/Pelvis CT 03/14/19 17:05 IMPRESSION: 1. Cirrhosis status post TIPS. Trace of ascites. Gastric and splenic varices. 2. Chronic pleural effusions. Body wall edema. 3. Sigmoid diverticulosis without evidence of diverticulitis. Chest X-Ray 03/16/19 00:00 IMPRESSION: Reaccumulation of the right basilar pleural effusion copyright 2011 [employer]- All Rights Reserved Assessment and Plan - Diagnosis (1) Portal hypertension Is this a current diagnosis for this admission?: Yes (2) CHF (congestive heart failure) Qualifiers: Heart failure type: unspecified Heart failure chronicity: chronic Qualified Code(s): I50.9 - Heart failure, unspecified Is this a current diagnosis for this admission?: Yes (3) Abdominal pain Qualifiers: Abdominal location: right upper quadrant Qualified Code(s): R10.11 - Right upper quadrant pain Is this a current diagnosis for this admission?: Yes (4) Anemia Qualifiers: Anemia type: other cause Other causes of anemia: chronic disease, other Qualified Code(s): D63.8 - Anemia in other chronic diseases classified elsewhere Is this a current diagnosis for this admission?: Yes (5) Urinary tract infection Is this a current diagnosis for this admission?: Yes (6) Pleural effusion Is this a current diagnosis for this admission?: Yes (7) Hepatic encephalopathy Is this a current diagnosis for this admission?: Yes (8) Hypothermia Qualifiers: Encounter type: sequela Qualified Code(s): T68.XXXS - Hypothermia, sequela Is this a current diagnosis for this admission?: Yes (9) Increased ammonia level Is this a current diagnosis for this admission?: Yes (10) Lactic acidosis Is this a current diagnosis for this admission?: Yes (11) Pancytopenia Is this a current diagnosis for this admission?: Yes (12) Cirrhosis Qualifiers: Hepatic cirrhosis type: unspecified hepatic cirrhosis Ascites presence: with ascites Qualified Code(s): K74.60 - Unspecified cirrhosis of liver; R18.8 - Other ascites Is this a current diagnosis for this admission?: Yes (13) Chronic liver failure Qualifiers: Hepatic coma status: without hepatic coma Qualified Code(s): K72.10 - Chronic hepatic failure without coma Is this a current diagnosis for this admission?: Yes (14) JOHNATHON (acute kidney injury) Is this a current diagnosis for this admission?: Yes (15) Adrenal insufficiency Is this a current diagnosis for this admission?: Yes Plan Summary: 68yo F with chronic liver disease and extensive medical history. She was started on stress dose steroids yesterday and midodrine and has maintained a MAP >60 since that time. Her labs today are worse and her MELD score has increased. She was a MELD of 16 on admission and is now a MELD 24 with a MELD-Na of 26. Her JOHNATHON is worse despite ongoing resuscitation and her bilirubin is up to 4 today. Her INR is also elevated at 1.87 from < 1.5 on admission. Contact made with [facility] yesterday who did not have any bed availability. Discussion had with [facility] as well who also does not have availability. She is actively on the wait list for both programs. Because of her low random cortisol and positive response to steroids we will continue stress dose steroids at this time. Will also start sliding scale insulin with accuchecks QAC/HS now that she has a diet and is actually hyperglycemic. Will continue to support medically while awaiting transfer. Additionally, her chest x-ray showed a reaccumulation of fluid in her right chest this morning though not as significant as yesterday. Stopcock opened on pleural catheter and an additional 300ml of fluid was drained. The catheter was then removed and the skin site dressed with dermabond skin glue to prevent leakage. Should she require further drainage will proceed with intermittent thoracentesis rather than indwelling catheter at this time. May ultimately require pleurx tunneled catheter for chronic aspiration. Critical Time Critical Time (minutes): 90 Level of Care: ICU [facility]ticipated [facility] Within: when bed available -: 1. The care of a critical patient is a dynamic process. This note is a commissary representative synopsis but static in nature. The timeframe for treatments given in order is not necessarily the actual time these treatments may have been done. 2. This patient requires critical care secondary to ongoing requirements for therapy not offered or safe outside the critical care environment. Transfer to a lower level of care will result in altered life or limb morbidity and mortality. 3. Multidisciplinary rounds completed. 4. ABCDE bundle addressed.
[2019-03-16 16:56] LABS: HEMATOCRIT 26.4 % (36.0-47.0); HEMOGLOBIN 8.3 g/dL (12.0-15.5); MEAN CORPUSCULAR HEMOGLOBIN 24.1 pg (27.0-33.4); MEAN CORPUSCULAR HGB CONC 31.6 g/dL (32.0-36.0); MEAN CORPUSCULAR VOLUME 76 fl (80-97); RED BLOOD COUNT 3.47 10^6/uL (3.72-5.28); RED CELL DISTRIBUTION WIDTH 26.4 % (11.5-14.0); WHITE BLOOD COUNT 6.9 10^3/uL (4.0-10.5)
[2019-03-16 17:12] LABS: ALBUMIN 2.8 g/dL (3.5-5.0); ALKALINE PHOSPHATASE 88 U/L (38-126); ANION GAP 14 (5-19); ASPARTATE AMINO TRANSFERASE 20 U/L (14-36); BILIRUBIN,DIRECT 1.9 mg/dL (0.0-0.4); BLOOD UREA NITROGEN 39 mg/dL (7-20); CARBON DIOXIDE 20 mmol/L (22-30); CHLORIDE 100 mmol/L (98-107); GLUCOSE 284 mg/dL (75-110); PHOSPHORUS 5.7 mg/dL (2.5-4.5)
[2019-03-16 17:20] LABS: PLATELET COUNT 87 10^3/uL (150-450); PROTHROMBIN TIME 21.1 SEC (11.4-15.4)
[2019-03-16] MEDS ORDERED: NORMAL SALINE 500 ML IV ONE (17:54)
[2019-03-16] MEDS ORDERED: FUROSEMIDE INJ/PF 20 MG/2 ML SDV IV ONE (17:56)
[2019-03-17 04:12] LABS: HEMATOCRIT 26.7 % (36.0-47.0); HEMOGLOBIN 8.4 g/dL (12.0-15.5); MEAN CORPUSCULAR HEMOGLOBIN 23.9 pg (27.0-33.4); MEAN CORPUSCULAR HGB CONC 31.6 g/dL (32.0-36.0); MEAN CORPUSCULAR VOLUME 76 fl (80-97); RED BLOOD COUNT 3.53 10^6/uL (3.72-5.28); RED CELL DISTRIBUTION WIDTH 27.3 % (11.5-14.0); WHITE BLOOD COUNT 8.9 10^3/uL (4.0-10.5)
[2019-03-17 04:20] LABS: INTERNATIONAL RATION (INR) 1.64; PROTHROMBIN TIME 19.6 SEC (11.4-15.4)
[2019-03-17 04:21] LABS: PARTIAL THROMBOPLASTIN TIME 30.9 SEC (23.5-35.8)
[2019-03-17 04:30] LABS: ALBUMIN 2.8 g/dL (3.5-5.0); ALKALINE PHOSPHATASE 92 U/L (38-126); ANION GAP 15 (5-19); ASPARTATE AMINO TRANSFERASE 26 U/L (14-36); BILIRUBIN,DIRECT 1.8 mg/dL (0.0-0.4); BILIRUBIN,TOTAL 2.4 mg/dL (0.2-1.3); BLOOD UREA NITROGEN 46 mg/dL (7-20); CALCIUM 8.8 mg/dL (8.4-10.2); CARBON DIOXIDE 18 mmol/L (22-30); CHLORIDE 101 mmol/L (98-107); GLUCOSE 153 mg/dL (75-110); PHOSPHORUS 5.9 mg/dL (2.5-4.5); POTASSIUM 4.3 mmol/L (3.6-5.0); TOTAL PROTEIN 6.3 g/dL (6.3-8.2)
--- NOTE | 2019-03-17 04:38 | PDOC DISCHARGE SUMMARY ---
Impression - Admit/DC Date/PCP Admission Date/Primary Care Provider: 03/14/19 19:37 LACEY THOMAS MD Discharge Date: 03/17/19 - transfer to [facility] - Discharge Diagnosis (1) Hypoglycemia Is this a current diagnosis for this admission?: Yes (2) Abdominal pain Is this a current diagnosis for this admission?: Yes (3) Anemia Is this a current diagnosis for this admission?: Yes (4) CHF (congestive heart failure) Is this a current diagnosis for this admission?: Yes (5) Chronic liver failure Is this a current diagnosis for this admission?: Yes (6) Cirrhosis Is this a current diagnosis for this admission?: Yes (7) Hepatic encephalopathy Is this a current diagnosis for this admission?: Yes (8) Hypothermia Is this a current diagnosis for this admission?: Yes (9) Increased ammonia level Is this a current diagnosis for this admission?: Yes (10) Lactic acidosis Is this a current diagnosis for this admission?: Yes (11) Pleural effusion Is this a current diagnosis for this admission?: Yes (12) Portal hypertension Is this a current diagnosis for this admission?: Yes (13) Urinary tract infection Is this a current diagnosis for this admission?: Yes - Additional Information Resuscitation Status: Full Code Referrals: LACEY THOMAS MD [Primary Care Provider] - Follow up as needed Home Medications: Benzonatate [Tessalon Perles 100 mg Capsule] 100 mg PO Q8HP PRN 03/14/19 Cyanocobalamin (Vitamin B-12) [Vitamin B-12 1000 Mcg Tablet] 1,000 mcg PO DAILY 03/14/19 Ferrous Sulfate [Feosol 325 mg Tablet] 325 mg PO BID 03/14/19 Furosemide [Lasix 40 mg Tablet] 20 mg PO BID 03/14/19 Insulin Aspart [Novolog Flexpen] 0 units SUBCUT .SLIDING SCALE 03/14/19 Insulin Degludec [Tresiba Flextouch U-200] 16 units SUBCUT BID 03/14/19 Lactulose [Cephulac Syrup 20 gm/30 ml Udcup] 20 gm PO TID 03/14/19 Levothyroxine Sodium 150 mcg PO Q6AM 03/14/19 Magnesium Oxide [Magnesium] 250 mg PO DAILY 03/14/19 Multivitamin [Tab-A-Natalia (Multiple Vitamin) Tablet] 1 tab PO DAILY 03/14/19 Pantoprazole Sodium [Protonix [address] Tablet] 40 mg PO QAM 03/14/19 Potassium Chloride [Klor-Con M20] 20 mg PO DAILY 03/14/19 Rifaximin [Xifaxan 550 mg Tablet] 550 mg PO Q12 03/14/19 Spironolactone [Aldactone] 50 mg PO DAILY 03/14/19 Ursodiol [Actigall 300 mg Capsule] 300 mg PO Q12 03/14/19 History of Present Illiness History of Present Illness: As per HPI from ICU consult done by Dr. Mckeon on 03/14/18 "68yo F with history of cirrhosis and significant portal hypertension. She has had countless episodes of gastroesophageal variceal bleeding, admissions for hepatic encephalopathy and other infections related to her ascites. Five years ago she underwent a TIPS procedure because of her severe portal hypertension/variceal disease and the shunt has been working well. 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 She takes numerous medications but most notably she is on rifaximin and lactulose for chronic hyperammonemia. This morning, her woke up to his alarm at 0700 to get her lactulose dose and when he looked at his he found her lying in a puddle of vomit that appeared red in color. He states that it did not look like blood but was red tinged. He checked her blood sugar and noted that she was hypoglycemic (70's) so he gave her orange juice and cleaned her up but she seemed altered so he called 911. Because of her history of hepatic encephalopathy he also gave her a dose of lactulose. Upon arrival she was found to have a glucose of 93 but was still altered. Her point of care lactate was high and she was hypothermic (94.7 F) and borderline hypotensive. Workup at our ER showed a normal WBC, a fairly stable chronic anemia (compared to prior labs) a lactate of 2.6 and an ammonia level of 129." 03/14/18: ED called with concerns that pt was persistently hypothermic, hypotensive and altered. On assessment in the ED, RN was in the room with pt attempting to place second IV line. Pt was wrapped in several blankets with warmer in place. She was groaning but not interactive or responsive to verbal or tactile stimuli in a purposeful manor. RN stated that pts had left for the night. CT abdomen Decision was made to admit pt to ICU for hepatic encephalopathy, AMS, hypothermia and hematemesis with hx of large gastroesophageal varices. Hospital Course Hospital Course: Pt was admitted to ICU care and noted to be hypoglycemic on arrival. Dextrose provided to correct with subsequent POC showing declining BG. Pt was placed on D10 IV fluids with noted improvement in mentation and core temperature. Hypoxia and pt reporting DINORAH/SOB resulted in HFNC with niminal improvement. Follow up chest xray show progression of effusion requiring placement of Right chest tube. Initial drainage of 1200mL of fluid that was sent for analysis, chest tube stop cock closed and tube left in place. Mentation continued to be altered to her baseline per family. Hypotension, hypotermia and hypoglycemia persisted, random cortisol was 9.8; she was given bulous of hydrocortisone and started on midodrine with noted improvement. Her MELD score was initially 16 on arrival to ED and was recalculated to 26 with worsening JOHNATHON and increased bilirubin. Most recent chest xray show reaccumultation of right side pleural effusion; chest tube drained for additional 300mL of fluid and then tube was DC'd. Pt has required HFNC to maintain oxygen saturations >90% and continues to be altered to her baseline. She has been noted to become more confused during the night; reports no history of dementia or other diagnoses. Physical Exam Vital Signs: Temp Pulse Resp BP Pulse Ox 96.8 F L 66 14 100/65 95 03/16/19 17:57 03/16/19 20:00 03/17/19 02:00 03/17/19 01:45 03/17/19 02:00 Intake & Output 03/15/19 03/16/19 03/17/19 06:59 06:59 06:59 Intake Total 2049 1950 850 Output Total 1650 1975 925 Balance 400 -25 -75 Weight 63.3 kg 66.7 kg General appearance: PRESENT: mild distress, obese Head exam: PRESENT: atraumatic, normocephalic Eye exam: PRESENT: EOMI, PERRLA Ear exam: PRESENT: normal external ear exam Mouth exam: PRESENT: moist, neck supple, tongue midline Neck exam: ABSENT: JVD, tracheal deviation Respiratory exam: PRESENT: crackles - R>L, decreased breath sounds. ABSENT: rales, tachypnea, wheezes Cardiovascular exam: PRESENT: RRR. ABSENT: diastolic murmur, systolic murmur Pulses: PRESENT: normal radial pulses, normal dorsalis pedis pul Vascular exam: PRESENT: normal capillary refill GI/Abdominal exam: PRESENT: hypoactive bowel sounds, soft, tenderness. ABSENT: distended, firm, guarding, mass Rectal exam: PRESENT: deferred Extremities exam: PRESENT: pedal edema, +1 edema Musculoskeletal exam: ABSENT: deformity Neurological exam: PRESENT: alert, awake, oriented to person, oriented to place, CN II-XII grossly intact. ABSENT: oriented to time, oriented to situation Psychiatric exam: PRESENT: flat affect Skin exam: PRESENT: dry, jaundice, warm Results Laboratory Results: WBC 6.9 10^3/uL (4.0-10.5) 03/16/19 16:40 RBC 3.47 10^6/uL (3.72-5.28) L 03/16/19 16:40 Hgb 8.3 g/dL (12.0-15.5) L 03/16/19 16:40 Hct 26.4 % (36.0-47.0) L 03/16/19 16:40 MCV 76 fl (80-97) L 03/16/19 16:40 MCH 24.1 pg (27.0-33.4) L 03/16/19 16:40 MCHC 31.6 g/dL (32.0-36.0) L 03/16/19 16:40 RDW 26.4 % (11.5-14.0) H 03/16/19 16:40 Plt Count 87 10^3/uL (150-450) L 03/16/19 16:40 Lymph % (Auto) 5.3 % (13-45) L 03/16/19 02:41 [place] % (Auto) 1.4 % (3-13) L 03/16/19 02:41 Eos % (Auto) 0.1 % (0-6) 03/16/19 02:41 Baso % (Auto) 0.2 % (0-2) 03/16/19 02:41 Absolute Neuts (auto) 6.9 10^3/uL (1.7-8.2) 03/16/19 02:41 Absolute Lymphs (auto) 0.4 10^3/uL (0.5-4.7) L 03/16/19 02:41 Absolute Monos (auto) 0.1 10^3/uL (0.1-1.4) 03/16/19 02:41 Absolute Eos (auto) 0.0 10^3/uL (0.0-0.6) 03/16/19 02:41 Absolute Basos (auto) 0.0 10^3/uL (0.0-0.2) 03/16/19 02:41 Total Counted 100 03/15/19 03:56 Seg Neutrophils % 93.0 % (42-78) H 03/16/19 02:41 Seg Neuts % (Manual) 93 % (42-78) H 03/15/19 03:56 Band Neutrophils % 1 % (3-5) L 03/15/19 03:56 Lymphocytes % (Manual) 2 % (13-45) L 03/15/19 03:56 Monocytes % (Manual) 3 % (3-13) 03/15/19 03:56 Eosinophils % (Manual) 1 % (0-6) 03/15/19 03:56 Basophils % (Manual) 0 % (0-2) 03/15/19 03:56 Abs Neuts (Manual) 9.9 10^3/uL (1.7-8.2) H 03/15/19 03:56 Abs Lymphs (Manual) 0.2 10^3/uL (0.5-4.7) L 03/15/19 03:56 Abs Monocytes (Manual) 0.3 10^3/uL (0.1-1.4) 03/15/19 03:56 Absolute Eos (Manual) 0.1 10^3/uL (0.0-0.6) 03/15/19 03:56 Abs Basophils (Manual) 0.0 10^3/uL (0.0-0.2) 03/15/19 03:56 Platelet Estimate Cancelled 03/15/19 18:56 Platelet Comment DECREASED 03/16/19 02:41 Polychromasia 1+ 03/16/19 02:41 Hypochromasia 1+ 03/16/19 02:41 Poikilocytosis 2+ 03/16/19 02:41 Anisocytosis 4+ 03/16/19 02:41 Microcytosis 1+ 03/16/19 02:41 Tear Drop Cells 1+ 03/16/19 02:41 Stomatocytes SLIGHT 03/14/19 10:30 [place] Cells 1+ 03/16/19 02:41 PT 21.1 SEC (11.4-15.4) H 03/16/19 16:40 INR 1.80 03/16/19 16:40 APTT 41.3 SEC (23.5-35.8) H 03/16/19 02:41 VBG pH 7.45 (7.30-7.42) H 03/14/19 12:33 VBG pCO2 27.4 mmHg (35-63) L 03/14/19 12:33 VBG HCO3 18.7 mmol/L (20-32) L 03/14/19 12:33 VBG Base Excess -4.6 mmol/L 03/14/19 12:33 Sodium 133.6 mmol/L (137-145) L 03/16/19 16:40 Potassium 4.0 mmol/L (3.6-5.0) 03/16/19 16:40 Chloride 100 mmol/L (98-107) 03/16/19 16:40 Carbon Dioxide 20 mmol/L (22-30) L 03/16/19 16:40 Anion Gap 14 (5-19) 03/16/19 16:40 BUN 39 mg/dL (7-20) H 03/16/19 16:40 Creatinine 1.71 mg/dL (0.52-1.25) H 03/16/19 16:40 Est GFR ( Amer) 36 (>60) L 03/16/19 16:40 Est GFR (MDRD) Non-Af 30 (>60) L 03/16/19 16:40 Glucose 284 mg/dL (75-110) H 03/16/19 16:40 POC Glucose 193 mg/dL (70-110) H 03/17/19 02:19 Lactic Acid 1.6 mmol/L (0.7-2.1) 03/14/19 17:23 Calcium 9.0 mg/dL (8.4-10.2) 03/16/19 16:40 Phosphorus 5.7 mg/dL (2.5-4.5) H 03/16/19 16:40 Magnesium 2.0 mg/dL (1.6-2.3) 03/16/19 16:40 Total Bilirubin 3.0 mg/dL (0.2-1.3) H 03/16/19 16:40 Direct Bilirubin 1.9 mg/dL (0.0-0.4) H 03/16/19 16:40 Neonat Total Bilirubin Not Reportable 03/16/19 16:40 Neonat Direct Bilirubin Not Reportable 03/16/19 16:40 Neonat Indirect Bili Not Reportable 03/16/19 16:40 AST 20 U/L (14-36) 03/16/19 16:40 ALT 13 U/L (<35) 03/16/19 16:40 Alkaline Phosphatase 88 U/L (38-126) 03/16/19 16:40 Ammonia 23.0 umol/L (9-33) 03/16/19 02:41 Total Protein 6.0 g/dL (6.3-8.2) L 03/16/19 16:40 Albumin 2.8 g/dL (3.5-5.0) L 03/16/19 16:40 TSH 0.53 uIU/mL (0.47-4.68) 03/14/19 21:35 Random Cortisol 9.88 ug/dL (None Established) 03/15/19 18:56 Urine Color ISRA[place] 03/14/19 11:50 Urine Appearance SLIGHTLY-CLOUDY 03/14/19 11:50 Urine pH 5.0 (5.0-9.0) 03/14/19 11:50 Ur Specific [place] 1.012 03/14/19 11:50 Urine Protein NEGATIVE mg/dL (NEGATIVE) 03/14/19 11:50 Urine Glucose (UA) NEGATIVE mg/dL (NEGATIVE) 03/14/19 11:50 Urine Ketones NEGATIVE mg/dL (NEGATIVE) 03/14/19 11:50 Urine Blood NEGATIVE (NEGATIVE) 03/14/19 11:50 Urine Nitrite NEGATIVE (NEGATIVE) 03/14/19 11:50 Urine Bilirubin NEGATIVE (NEGATIVE) 03/14/19 11:50 Urine Urobilinogen 2.0 mg/dL (<2.0) H 03/14/19 11:50 Ur Leukocyte Esterase NEGATIVE (NEGATIVE) 03/14/19 11:50 Urine WBC (Auto) 3 /HPF 03/14/19 11:50 Urine RBC (Auto) 1 /HPF 03/14/19 11:50 U Hyaline Cast (Auto) 10 /LPF 03/14/19 11:50 Urine Bacteria (Auto) 2+ /HPF 03/14/19 11:50 Squamous Epi Cells Auto <1 /HPF 03/14/19 11:50 Urine Mucus (Auto) RARE /LPF 03/14/19 11:50 Urine Ascorbic Acid 40 (NEGATIVE) H 03/14/19 11:50 Fluid Type PLEURAL 03/15/19 10:30 Fluid Source LUNG 03/15/19 10:30 Fluid Color ORANGE 03/15/19 10:30 Fluid Appearance CLEAR 03/15/19 10:30 Fluid Viscosity LIQUID 03/15/19 10:30 Fluid WBC 163 /uL 03/15/19 10:30 Fluid RBC 6920 /uL 03/15/19 10:30 Fluid Seg Neutrophils 25 % 03/15/19 10:30 Fluid Lymphocytes 72 % 03/15/19 10:30 Fluid Monocytes 3 % 03/15/19 10:30 Fluid Eosinophils 0 % 03/15/19 10:30 Fluid Basophils 0 % 03/15/19 10:30 Urine Opiates Screen NEGATIVE 03/14/19 11:50 Urine Methadone Screen NEGATIVE 03/14/19 11:50 Ur Barbiturates Screen NEGATIVE 03/14/19 11:50 Ur Phencyclidine Scrn NEGATIVE 03/14/19 11:50 Ur Amphetamines Screen NEGATIVE 03/14/19 11:50 U Benzodiazepines Scrn NEGATIVE 03/14/19 11:50 Urine Cocaine Screen NEGATIVE 03/14/19 11:50 U Marijuana (THC) Screen NEGATIVE 03/14/19 11:50 Serum Alcohol < 10 mg/dL (NONE DETECTED) 03/14/19 10:30 Influenza A (Rapid) NEGATIVE (NEGATIVE) 03/14/19 15:39 Influenza B (Rapid) NEGATIVE (NEGATIVE) 03/14/19 15:39 Slides for Path Review Cancelled 03/15/19 18:56 Blood Type AB POSITIVE 03/14/19 12:28 Blood Type Confirm AB POSITIVE 03/14/19 12:28 Antibody Screen NEGATIVE 03/14/19 12:28 Crossmatch See Detail 03/14/19 12:28 Impressions: Chest X-Ray 03/14/19 10:55 IMPRESSION: Bibasilar pleural and parenchymal opacities that obscure the con tours of the hemidiaphragms and blunt the costophrenic sulci. These opacities could represent a combination of pleural fluid, atelectasis and/or pneumonia. Abdomen Ultrasound 03/14/19 16:33 IMPRESSION: Inadequate volume for paracentesis. Abdomen Ultrasound 03/14/19 17:05 IMPRESSION: Patent TIPS shunt. No ascites. Abdomen/Pelvis CT 03/14/19 17:05 IMPRESSION: 1. Cirrhosis status post TIPS. Trace of ascites. Gastric and splenic varices. 2. Chronic pleural effusions. Body wall edema. 3. Sigmoid diverticulosis without evidence of diverticulitis. Chest X-Ray 03/15/19 06:00 IMPRESSION: CHF. No significant change. Chest X-Ray 03/15/19 14:19 IMPRESSION: Small right basilar pneumothorax status post thoracentesis. Chest X-Ray 03/16/19 00:00 IMPRESSION: Reaccumulation of the right basilar pleural effusion copyright 2010 [employer]- All Rights Reserved Plan Plan of Treatment: Transfer to [facility] ICU to continue care Critical Time: 45 Level of Care: ICU - Accepting physician at [facility] - Dr. Jazmine Cox Stroke Is this a Stroke Patient?: No Acute Heart Failure - Is this a Heart Failure Patient?: Yes Documentation of LVEF assessment?: No, Document reason - no current echo on file, reported hx LVEF < 40%?: No- if no continue to question #3 3. Anticoagulant therapy for permanect/persistent/paraoxysmal Afib or Aflutter: No, document contraindications - reported GI bleeding on arrival Reason(s) not discharged on anticoagulant therapy for permanect/persistent/paraoxysmal Afib or Aflutter: Other - being transferred to another facility Follow-up Appointment scheduled within 7 days?: No, document reason - pt transfer
[2019-03-17 04:41] LABS: PLATELET COUNT 97 10^3/uL (150-450)
[2019-03-17] MEDS: LEVOTHYROXINE SODIUM 0.15 MG TABLET PO SCH (05:56)
[2019-03-17] MEDS: MIDODRINE HCL 5 MG TABLET PO SCH (05:56)
[2019-03-17] MEDS: HYDROCORTISONE SOD SUCCINATE INJ/PF 100 MG/2 ML SDV IV SCH (05:57)
[2019-03-17] MEDS: INSULIN LISPRO 100 UNIT/ML 3 ML VIAL SUBCUT SCH (07:46)
[2019-03-17 08:05] VITALS: BP 97/54
== END 2019-03-17 08:56 | disposition short-term general hospital (02) | DRG 442 ==
LOC: ER 10:20 → EH 19:37 → ICU 20:49
PROVIDERS: ADMIT Surgery; ATTEND Surgery
PROC: 0W9930Z Drainage of Right Pleural Cavity with Drainage Device, Percutaneous Approach (ICD-10-PCS; principal; 2019-03-15)
PROC: 30233N1 Transfusion of Nonautologous Red Blood Cells into Peripheral Vein, Percutaneous Approach (ICD-10-PCS; 2019-03-15)
PROC: 5A09357 Assistance with Respiratory Ventilation, Less than 24 Consecutive Hours, Continuous Positive Airway Pressure (ICD-10-PCS; 2019-03-15)
DX: K72.10 Chronic hepatic failure without coma (principal); D61.818 Other pancytopenia; N17.9 Acute kidney failure, unspecified; J90 Pleural effusion, not elsewhere classified; R18.8 Other ascites; K76.6 Portal hypertension; N39.0 Urinary tract infection, site not specified; T68.XXXA Hypothermia, initial encounter; E10.649 Type 1 diabetes mellitus with hypoglycemia without coma; D63.8 Anemia in other chronic diseases classified elsewhere; I11.0 Hypertensive heart disease with heart failure; I50.9 Heart failure, unspecified; K74.60 Unspecified cirrhosis of liver; R09.02 Hypoxemia; E66.9 Obesity, unspecified; J44.9 Chronic obstructive pulmonary disease, unspecified; E03.9 Hypothyroidism, unspecified; K21.9 Gastro-esophageal reflux disease without esophagitis; M19.90 Unspecified osteoarthritis, unspecified site; Z79.4 Long term (current) use of insulin; Z87.440 Personal history of urinary (tract) infections
CPT/HCPCS: 32551; 32556; 36415; 36430; 51702; 71045; 74177; 76700; 76705; 80048; 80053; 80076; 80307; 81001; 82140; 82150; 82533; 82803; 82945; 82962; 83605; 83615; 83735; 84100; 84157; 84443; 85025; 85027; 85610; 85730; 86850; 86900; 86901; 86920; 87040; 87070; 87075; 87205; 87804; 89050; 93005; 93010; 93976; 94660; 96361; 96365; 96367; 96375; 96376; 99239; 99285; 99291; 99292; A9270-GY; C9113; J0456; J0696; J1720; J1815; J1940; J2060; J2270; J2354; J3490; J7030; J7040; J7060; P9016; P9041; P9047

== ENCOUNTER 2019-03-27 21:07 | Inpatient (IN) | payer MEDICARE ==
[2019-03-27] MEDS ORDERED: IPRATROPIUM/ALBUTEROL 0.5-2.5 MG/3 ML AMPUL NEB PRN (22:03)
[2019-03-27] MEDS ORDERED: MAG HYDROX/AL HYDROX/SIMETH SUSP 30 ML UDCUP PO PRN (22:03)
[2019-03-27] MEDS ORDERED: DEXTROSE 40% GEL 15 GM TUBE PO PRN ×2 (22:07)
[2019-03-27] MEDS ORDERED: GLUCAGON,HUMAN RECOMB 1 MG INJ IM PRN (22:07)
[2019-03-27] MEDS ORDERED: DEXTROSE 50%-WATER 25 GM/50 ML DISP.SYRIN IV PRN (22:07)
[2019-03-27] MEDS ORDERED: URSODIOL 300 MG CAPSULE ONE (23:23)
[2019-03-27] MEDS ORDERED: RIFAXIMIN 550 MG TABLET ONE (23:23)
[2019-03-27] MEDS: RIFAXIMIN 550 MG TABLET PO SCH (23:28)
[2019-03-27] MEDS: URSODIOL 300 MG CAPSULE PO SCH (23:28)
--- NOTE | 2019-03-28 04:36 | PDOC H&P ---
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 Additionally her past medical history includes renal failure, pulmonary hypertension, anemia, coagulopathy, thrombocytopenia, hypotension, insulin- dependent diabetes and recurrent hepatic encephalopathy. Essentially she was successfully treated and stabilized for complications of primary biliary sclerosis with volume overload please see discharge summary for complete details. She remains with progressive hepatic cirrhosis, hypotension, renal failure, anemia and profound debility. However she is awake and alert oriented x3 in no acute distress. Vitals and labs are pending. Past Medical History Cardiac Medical History: Reports: Congestive Heart Failure, Hypertension Pulmonary Medical History: Reports: Chronic Obstructive Pulmonary Disease (COPD) Endocrine Medical History: Reports: Diabetes Mellitus Type 1, Diabetes Mellitus Type 2, Hypothyroidism GI Medical History: Reports: Cirrhosis, Gastroesophageal Reflux Disease Musculoskeltal Medical History: Reports: Arthritis Psychiatric Medical History: Denies: Depression Hematology: Reports: Anemia Past Surgical History Past Surgical History: Reports: Section - x2, Cholecystectomy, Herniorrhaphy, Hysterectomy, Orthopedic Surgery, Other - Tips procedure Social History Information Source: Patient, Transfer Record, [facility] Records Lives with: Spouse/Significant other Smoking Status: Never Smoker Electronic Cigarette use?: No Frequency of Alcohol Use: None Hx Recreational Drug Use: No Drugs: None Hx Prescription Drug Abuse: No - Advance Directive Resuscitation Status: Full Code Family History Family History: COPD Parental Family History Reviewed: Yes Children Family History Reviewed: Yes Sibling(s) Family History Reviewed.: Yes Medication/Allergy Home Medications: Furosemide [Lasix 40 mg Tablet] 20 mg PO BID 03/14/19 Insulin Degludec [Tresiba Flextouch U-200] 16 units SUBCUT BID 03/14/19 Lactulose [Cephulac Syrup 20 gm/30 ml Udcup] 20 gm PO TID 03/14/19 Levothyroxine Sodium 150 mcg PO Q6AM 03/14/19 Pantoprazole Sodium [Protonix [address] Tablet] 40 mg PO QAM 03/14/19 Potassium Chloride [Klor-Con M20] 20 mg PO DAILY 03/14/19 Rifaximin [Xifaxan 550 mg Tablet] 550 mg PO Q12 03/14/19 Spironolactone [Aldactone] 100 mg PO BID 03/14/19 Ursodiol [Actigall 300 mg Capsule] 300 mg PO Q12 03/14/19 Allergies/Adverse Reactions: No Known Allergies Allergy (Verified 09/11/18 12:48) Review of Systems Constitutional: PRESENT: as per HPI, anorexia, fatigue, weakness, weight loss Eyes: ABSENT: visual disturbances Ears: ABSENT: hearing changes Cardiovascular: PRESENT: as per HPI, dyspnea on exertion, edema. ABSENT: chest pain, orthropnea, palpitations Respiratory: ABSENT: cough, hemoptysis Gastrointestinal: PRESENT: as per HPI, diarrhea. ABSENT: abdominal pain, bloating, coffee ground emesis, constipation, nausea Genitourinary: ABSENT: dysuria, hematuria Musculoskeletal: PRESENT: as per HPI, muscle weakness Integumentary: PRESENT: other - Scattered ecchymosis. ABSENT: rash, wounds Neurological: ABSENT: abnormal gait, abnormal speech, confusion, dizziness, focal weakness, syncope Psychiatric: ABSENT: anxiety, depression, homidical ideation, suicidal ideation Endocrine: ABSENT: cold intolerance, heat intolerance, polydipsia, polyuria Hematologic/Lymphatic: PRESENT: easy bleeding, easy bruising Physical Exam Vital Signs: Temp Pulse Resp BP Pulse Ox 98.1 F 79 20 99/47 L 94 03/27/19 23:53 03/28/19 02:00 03/27/19 23:53 03/27/19 23:53 03/27/19 23:53 Intake & Output 03/26/19 03/27/19 03/28/19 11:59 11:59 11:59 Intake Total 260 Balance 260 Weight 55.1 kg General appearance: PRESENT: cooperative, thin, well-developed, well-nourished Head exam: PRESENT: atraumatic, normocephalic Eye exam: PRESENT: conjunctiva pink, EOMI, PERRLA, scleral icterus Ear exam: PRESENT: normal external ear exam Mouth exam: PRESENT: moist, tongue midline Neck exam: ABSENT: carotid bruit, JVD, lymphadenopathy, thyromegaly Respiratory exam: PRESENT: clear to auscultation josh. ABSENT: rales, rhonchi, wheezes Cardiovascular exam: PRESENT: RRR. ABSENT: diastolic murmur, rubs, systolic murmur Pulses: PRESENT: normal dorsalis pedis pul Vascular exam: PRESENT: normal capillary refill GI/Abdominal exam: PRESENT: normal bowel sounds, soft. ABSENT: distended, guarding, mass, organolmegaly, rebound, tenderness Rectal exam: PRESENT: deferred Extremities exam: PRESENT: full ROM. ABSENT: calf tenderness, clubbing, pedal edema Neurological exam: PRESENT: alert, awake, oriented to person, oriented to place, oriented to time, oriented to situation, CN II-XII grossly intact. ABSENT: motor sensory deficit Psychiatric exam: PRESENT: appropriate affect, normal mood. ABSENT: homicidal ideation, suicidal ideation Skin exam: PRESENT: dry, intact, jaundice, warm, other - Upper extremity ecchymosis. ABSENT: cyanosis, rash Assessment and Plan - Diagnosis (1) Hypotension Is this a current diagnosis for this admission?: Yes Plan: Secondary to hepatic cirrhosis and hypovolemic state with low intravascular volume. Avoid overdiuresis risking hepatorenal failure. (2) JOHNATHON (acute kidney injury) Is this a current diagnosis for this admission?: Yes Plan: Likely secondary to low GFR with hypotension, complicated by cirrhosis and hypovolemic state with low intravascular volume. Avoid excessive diuresis. Nephrotoxic meds and doses follow-up chemistry (3) Anemia Qualifiers: Anemia type: other cause Other causes of anemia: chronic disease, other Qualified Code(s): D63.8 - Anemia in other chronic diseases classified elsewhere Is this a current diagnosis for this admission?: Yes Plan: Likely secondary to chronic disease, follow-up anemia labs (4) Chronic liver failure Qualifiers: Hepatic coma status: without hepatic coma Qualified Code(s): K72.10 - Chronic hepatic failure without coma Is this a current diagnosis for this admission?: Yes Plan: Secondary to primary biliary sclerosis, sodium restriction, Aldactone, Lasix, [place], outpatient follow-up with [place] (5) Hepatic encephalopathy Is this a current diagnosis for this admission?: Yes Plan: Lactulose and rifaximin daily (6) Physical debility Is this a current diagnosis for this admission?: Yes Plan: Physical therapy, occupational therapy and discharge planning consulted - Time Time Spent with patient: 25-34 minutes - Inpatient Certification Medical Necessity: Need Close Monitoring Due to Risk of Patient Decompensation
[2019-03-28 05:16] LABS: ANION GAP 10 (5-19); BLOOD UREA NITROGEN 91 mg/dL (7-20); CARBON DIOXIDE 32 mmol/L (22-30); CHLORIDE 95 mmol/L (98-107); GLUCOSE 145 mg/dL (75-110)
[2019-03-28] MEDS: LEVOTHYROXINE SODIUM 0.15 MG TABLET PO SCH (05:20)
[2019-03-28 06:35] LABS: INTERNATIONAL RATION (INR) 1.27
[2019-03-28 06:43] LABS: IRON(TIBC) 36.6 ug/dL (37-170)
[2019-03-28 06:56] LABS: ABSOLUTE RETICS # 0.091 10^6/uL (0.028-0.122); RETICULOCYTE COUNT (AUTO) 2.96 % (0.66-2.85)
[2019-03-28] MEDS: INSULIN LISPRO 100 UNIT/ML 3 ML VIAL SUBCUT SCH ×3 (08:16→16:05)
[2019-03-28] MEDS: HEPARIN SOD (PORCINE) 5,000 UNIT/ML 1 ML VIAL SUBCUT SCH ×3 (08:16→21:15)
[2019-03-28] MEDS: DOCUSATE SODIUM 100 MG CAPSULE PO SCH ×2 (09:32→17:15)
[2019-03-28] MEDS: SPIRONOLACTONE 25 MG TABLET PO SCH ×2 (09:34→18:10)
[2019-03-28] MEDS: RIFAXIMIN 550 MG TABLET PO SCH ×2 (09:35→21:20)
[2019-03-28] MEDS: LACTULOSE SYRUP 20 GM/30 ML UDCUP PO SCH ×3 (09:35→17:15)
[2019-03-28] MEDS: FUROSEMIDE 40 MG TABLET PO SCH ×2 (09:35→18:10)
[2019-03-28] MEDS: URSODIOL 300 MG CAPSULE PO SCH ×2 (09:35→21:21)
[2019-03-28] MEDS: POTASSIUM CHLORIDE 10 MEQ TABLET.ER PO SCH (09:35)
[2019-03-28] MEDS ORDERED: INSULIN DEGLUDEC 16 UNIT SUBCUT SCH (10:00)
--- NOTE | 2019-03-28 14:29 | PDOC PROGRESS REPORT ---
Subjective Progress Note for:: 03/28/19 Subjective:: Patient feels well today. Denies any shortness of breath, abdominal pain, confusion. Patient endorses having 4 bowel movements yesterday. States that she has had cirrhosis for about 5 years. Reason For Visit: ACUTE RENAL FAILURE,PRIMARY BILIARY CHOLANGITIS, Physical Exam Vital Signs: Temp Pulse Resp BP Pulse Ox 97.3 F 71 18 95/39 L 98 03/28/19 11:02 03/28/19 11:02 03/28/19 11:02 03/28/19 11:02 03/28/19 11:02 Intake & Output 03/27/19 03/28/19 03/29/19 06:59 06:59 06:59 Intake Total 260 240 Output Total 260 Balance 0 240 Weight 54.5 kg 54.5 kg General appearance: PRESENT: no acute distress, cooperative Neck exam: ABSENT: JVD Respiratory exam: PRESENT: clear to auscultation josh, unlabored. ABSENT: tachypnea, wheezes Cardiovascular exam: PRESENT: RRR, +S1, +S2. ABSENT: tachycardia GI/Abdominal exam: PRESENT: normal bowel sounds, soft. ABSENT: rebound, rigid, tenderness Neurological exam: PRESENT: alert, awake, oriented to person, oriented to place, oriented to time Results Laboratory Results: 03/28/19 04:23 03/28/19 03/28/19 03/28/19 04:23 06:17 06:17 Retic Count (auto) 2.96 H Sodium 137.0 Potassium 5.0 Chloride 95 L Carbon Dioxide 32 H Anion Gap 10 BUN 91 H Creatinine 1.77 H Est GFR ( Amer) 34 L Glucose 145 H Calcium 9.0 Iron 36.6 L TIBC 300 % Saturation 12 Ferritin 54.40 Vitamin B12 > 1000.0 H Folate 14.30 Assessment and Plan - Diagnosis (1) Primary biliary cirrhosis Is this a current diagnosis for this admission?: Yes Plan: Chronic liver failure. Has had cirrhosis for over 5 years. Continue with salt restriction, Aldactone, ursodiol. Lasix 20 mg twice daily resumed. Outpatient follow-up with [facility] (2) Hypotension Qualifiers: Hypotension type: other hypotension type Qualified Code(s): I95.89 - Other hypotension Is this a current diagnosis for this admission?: Yes Plan: Secondary to hepatic cirrhosis and hypovolemic state with low intravascular volume. Avoid overdiuresis risking hepatorenal failure. (3) Acute on chronic kidney failure Is this a current diagnosis for this admission?: Yes Plan: Likely secondary to low GFR with hypotension, complicated by cirrhosis and hypovolemic state with low intravascular volume. Avoid excessive diuresis. Monitor BMP. (4) Anemia Qualifiers: Anemia type: other cause Other causes of anemia: chronic disease, other Qualified Code(s): D63.8 - Anemia in other chronic diseases classified elsewhere Is this a current diagnosis for this admission?: Yes Plan: Likely secondary to chronic disease though with some underlying iron deficiency. Will start on ferrous sulfate. (5) Hepatic encephalopathy Is this a current diagnosis for this admission?: Yes Plan: Currently resolved Continue lactulose and rifaximin (6) Physical debility Is this a current diagnosis for this admission?: Yes Plan: Physical therapy, occupational therapy and discharge planning consulted - Time Time Spent with patient: 15-24 minutes
[2019-03-28] MEDS ORDERED: INSULIN GLARGINE,HUM.REC.ANLOG 1,000 UNIT/10 ML VIAL SUBCUT ONE (19:30)
[2019-03-29] MEDS: LEVOTHYROXINE SODIUM 0.15 MG TABLET PO SCH (06:03)
[2019-03-29] MEDS: HEPARIN SOD (PORCINE) 5,000 UNIT/ML 1 ML VIAL SUBCUT SCH ×3 (06:36→22:50)
[2019-03-29 06:44] LABS: ALBUMIN 3.5 g/dL (3.5-5.0); ALKALINE PHOSPHATASE 86 U/L (38-126); ANION GAP 14 (5-19); ASPARTATE AMINO TRANSFERASE 23 U/L (14-36); BILIRUBIN,DIRECT 2.2 mg/dL (0.0-0.4); BILIRUBIN,TOTAL 3.2 mg/dL (0.2-1.3); BLOOD UREA NITROGEN 93 mg/dL (7-20); CARBON DIOXIDE 29 mmol/L (22-30); CHLORIDE 94 mmol/L (98-107); GLUCOSE 240 mg/dL (75-110); POTASSIUM 4.4 mmol/L (3.6-5.0); TOTAL PROTEIN 6.8 g/dL (6.3-8.2)
[2019-03-29 06:50] LABS: HEMATOCRIT 22.9 % (36.0-47.0); MEAN CORPUSCULAR HEMOGLOBIN 25.3 pg (27.0-33.4); MEAN CORPUSCULAR HGB CONC 32.5 g/dL (32.0-36.0); MEAN CORPUSCULAR VOLUME 78 fl (80-97); RED BLOOD COUNT 2.94 10^6/uL (3.72-5.28); WHITE BLOOD COUNT 3.9 10^3/uL (4.0-10.5)
[2019-03-29 07:27] LABS: PLATELET COUNT 99 10^3/uL (150-450)
[2019-03-29 07:33] LABS: HEMOGLOBIN 7.4 g/dL (12.0-15.5)
[2019-03-29] MEDS: INSULIN LISPRO 100 UNIT/ML 3 ML VIAL SUBCUT SCH ×3 (08:40→17:51)
[2019-03-29] MEDS ORDERED: INSULIN GLARGINE,HUM.REC.ANLOG 1,000 UNIT/10 ML VIAL SUBCUT SCH (10:00)
[2019-03-29] MEDS: FUROSEMIDE 40 MG TABLET PO SCH ×2 (10:32→17:51)
[2019-03-29] MEDS: URSODIOL 300 MG CAPSULE PO SCH ×2 (10:32→22:40)
[2019-03-29] MEDS: FERROUS SULFATE 325 MG TABLET PO SCH (10:32)
[2019-03-29] MEDS: SPIRONOLACTONE 25 MG TABLET PO SCH ×2 (10:34→17:50)
[2019-03-29] MEDS: RIFAXIMIN 550 MG TABLET PO SCH ×2 (10:34→22:40)
[2019-03-29] MEDS: POTASSIUM CHLORIDE 10 MEQ TABLET.ER PO SCH (10:34)
[2019-03-29] MEDS: LACTULOSE SYRUP 20 GM/30 ML UDCUP PO SCH ×2 (10:39→14:00)
[2019-03-29] MEDS: DOCUSATE SODIUM 100 MG CAPSULE PO SCH (10:39)
[2019-03-29] MEDS ORDERED: INSULIN GLARGINE,HUM.REC.ANLOG 1,000 UNIT/10 ML VIAL SUBCUT ONE (13:30)
--- NOTE | 2019-03-29 15:17 | PDOC PROGRESS REPORT ---
Subjective Progress Note for:: 03/29/19 Subjective:: Patient had some loose stools today. Otherwise she has no complaints. She still feels weak. Reason For Visit: ACUTE RENAL FAILURE,PRIMARY BILIARY CHOLANGITIS, Physical Exam Vital Signs: Temp Pulse Resp BP Pulse Ox 97.4 F 72 18 101/42 L 96 03/29/19 12:00 03/29/19 12:00 03/29/19 12:00 03/29/19 12:00 03/29/19 12:00 Intake & Output 03/28/19 03/29/19 03/30/19 06:59 06:59 06:59 Intake Total 260 760 118 Output Total 260 575 50 Balance 0 185 68 Weight 54.5 kg 54.5 kg General appearance: PRESENT: no acute distress, cooperative Neck exam: ABSENT: JVD Respiratory exam: PRESENT: clear to auscultation josh, unlabored. ABSENT: tachypnea, wheezes Cardiovascular exam: PRESENT: RRR, +S1, +S2. ABSENT: tachycardia GI/Abdominal exam: PRESENT: normal bowel sounds, soft. ABSENT: rebound, rigid, tenderness Neurological exam: PRESENT: alert, awake, oriented to person, oriented to place, oriented to time Results Laboratory Results: 03/29/19 05:17 03/29/19 05:17 03/29/19 03/29/19 05:17 05:17 WBC 3.9 L RBC 2.94 L Hgb 7.4 L Hct 22.9 L MCV 78 L MCH 25.3 L MCHC 32.5 RDW 30.0 H Plt Count 99 L Sodium 136.6 L Potassium 4.4 Chloride 94 L Carbon Dioxide 29 Anion Gap 14 BUN 93 H Creatinine 1.91 H Est GFR ( Amer) 32 L Glucose 240 H Calcium 9.0 Magnesium 2.1 Total Bilirubin 3.2 H AST 23 Alkaline Phosphatase 86 Total Protein 6.8 Albumin 3.5 Assessment and Plan - Diagnosis (1) Primary biliary cirrhosis Is this a current diagnosis for this admission?: Yes Plan: Chronic liver failure. Has had cirrhosis for over 5 years. Continue with salt restriction, ursodiol. Lasix 20 mg twice daily Aldactone decreased to 50 mg twice daily given increasing creatinine (2) Hypotension Qualifiers: Hypotension type: other hypotension type Qualified Code(s): I95.89 - Other hypotension Is this a current diagnosis for this admission?: Yes Plan: Secondary to hepatic cirrhosis and hypovolemic state with low intravascular volume. Avoid overdiuresis risking hepatorenal failure. BP stable (3) Acute on chronic kidney failure Is this a current diagnosis for this admission?: Yes Plan: Mild bump in creatinine from yesterday to today. Aldactone dose decreased. Lactulose frequency also decreased to avoid dehydration. Continue to monitor creatinine. (4) Anemia Qualifiers: Anemia type: other cause Other causes of anemia: chronic disease, other Qualified Code(s): D63.8 - Anemia in other chronic diseases classified elsewhere Is this a current diagnosis for this admission?: Yes Plan: Likely secondary to chronic disease though with some underlying iron deficiency. Will start on ferrous sulfate. (5) Hepatic encephalopathy Is this a current diagnosis for this admission?: Yes Plan: Currently resolved Continue lactulose and rifaximin. Reduce lactulose dose to once a day as patient has had multiple bowel movements and would need to avoid dehydration. (6) Physical debility Is this a current diagnosis for this admission?: Yes Plan: Physical therapy, occupational therapy and discharge planning consulted - Time Time Spent with patient: Less than 15 minutes
[2019-03-29] MEDS: INSULIN GLARGINE,HUM.REC.ANLOG 1,000 UNIT/10 ML VIAL SUBCUT SCH (22:40)
[2019-03-30] MEDS: LEVOTHYROXINE SODIUM 0.15 MG TABLET PO SCH (05:58)
[2019-03-30] MEDS: HEPARIN SOD (PORCINE) 5,000 UNIT/ML 1 ML VIAL SUBCUT SCH ×3 (05:59→22:06)
[2019-03-30] MEDS: INSULIN LISPRO 100 UNIT/ML 3 ML VIAL SUBCUT SCH ×3 (07:33→16:33)
[2019-03-30 08:18] LABS: ANION GAP 12 (5-19); BLOOD UREA NITROGEN 92 mg/dL (7-20); CALCIUM 8.9 mg/dL (8.4-10.2); CARBON DIOXIDE 27 mmol/L (22-30); CHLORIDE 96 mmol/L (98-107); GLUCOSE 83 mg/dL (75-110); POTASSIUM 4.5 mmol/L (3.6-5.0)
[2019-03-30] MEDS: INSULIN GLARGINE,HUM.REC.ANLOG 1,000 UNIT/10 ML VIAL SUBCUT SCH ×2 (09:30→22:30)
[2019-03-30] MEDS: POTASSIUM CHLORIDE 10 MEQ TABLET.ER PO SCH (09:35)
[2019-03-30] MEDS: RIFAXIMIN 550 MG TABLET PO SCH ×2 (09:35→22:30)
[2019-03-30] MEDS: SPIRONOLACTONE 25 MG TABLET PO SCH ×2 (09:36→17:59)
[2019-03-30] MEDS: FUROSEMIDE 40 MG TABLET PO SCH ×2 (09:36→18:03)
[2019-03-30] MEDS: FERROUS SULFATE 325 MG TABLET PO SCH (09:36)
[2019-03-30] MEDS: URSODIOL 300 MG CAPSULE PO SCH ×2 (09:43→22:30)
[2019-03-30] MEDS ORDERED: LACTULOSE SYRUP 20 GM/30 ML UDCUP PO SCH ×2 (10:00→18:00)
[2019-03-30] MEDS ORDERED: ACETAMINOPHEN 325 MG TABLET PO PRN (12:28)
--- NOTE | 2019-03-30 12:30 | PDOC PROGRESS REPORT ---
Subjective Progress Note for:: 03/30/19 Subjective:: Patient complains of back pain especially when walking. Otherwise her breathing is fine. Denies other complaints. Diarrhea has resolved with decreasing lactulose doses. Reason For Visit: ACUTE RENAL FAILURE,PRIMARY BILIARY CHOLANGITIS, Physical Exam Vital Signs: Temp Pulse Resp BP Pulse Ox 98.0 F 75 19 97/41 L 96 03/30/19 08:00 03/30/19 08:00 03/30/19 08:00 03/30/19 08:00 03/30/19 08:00 Intake & Output 03/29/19 03/30/19 03/31/19 06:59 06:59 06:59 Intake Total 760 236 Output Total 575 50 Balance 185 186 Weight 54.5 kg 55.1 kg General appearance: PRESENT: no acute distress, cooperative Neck exam: ABSENT: JVD Respiratory exam: PRESENT: clear to auscultation josh, unlabored. ABSENT: tachypnea, wheezes Cardiovascular exam: PRESENT: RRR, +S1, +S2. ABSENT: tachycardia GI/Abdominal exam: PRESENT: soft. ABSENT: rebound, rigid, tenderness Extremities exam: PRESENT: tenderness - Bilateral paraspinal tenderness but no tenderness in the mid spine Neurological exam: PRESENT: alert, awake Results Laboratory Results: 03/29/19 05:17 03/30/19 05:21 03/30/19 03/30/19 05:21 05:21 Sodium 135.3 L Potassium 4.5 Chloride 96 L Carbon Dioxide 27 Anion Gap 12 BUN 92 H Creatinine 1.95 H Est GFR ( Amer) 31 L Glucose 83 Calcium 8.9 Magnesium 2.1 Blood Type AB POSITIVE Antibody Screen NEGATIVE Assessment and Plan - Diagnosis (1) Primary biliary cirrhosis Is this a current diagnosis for this admission?: Yes Plan: Chronic liver failure. Has had cirrhosis for over 5 years. Continue with salt restriction, ursodiol. Lasix 20 mg twice daily Aldactone 50 mg twice daily (2) Hypotension Qualifiers: Hypotension type: other hypotension type Qualified Code(s): I95.89 - Other hypotension Is this a current diagnosis for this admission?: Yes Plan: Secondary to hepatic cirrhosis and hypovolemic state with low intravascular volume. Avoid overdiuresis risking hepatorenal failure. BP stable (3) Acute on chronic kidney failure Is this a current diagnosis for this admission?: Yes Plan: Creatinine stabilizing around 1.9. Continue to monitor BMP. Gentle diuresis. Avoid dehydration. (4) Anemia Qualifiers: Anemia type: other cause Other causes of anemia: chronic disease, other Qualified Code(s): D63.8 - Anemia in other chronic diseases classified elsewhere Is this a current diagnosis for this admission?: Yes (5) Hepatic encephalopathy Is this a current diagnosis for this admission?: Yes Plan: Currently resolved Continue lactulose and rifaximin. Lactulose twice daily. Will hold if dehydrated. (6) Back pain Qualifiers: Back pain location: low back pain Chronicity: acute Back pain laterality: bilateral Sciatica presence: without sciatica Qualified Code(s): M54.5 - Low back pain Is this a current diagnosis for this admission?: Yes Plan: Involving bilateral paraspinal muscle regions. K pad. Tylenol as needed. Do not exceed 2 g daily. (7) Physical debility Is this a current diagnosis for this admission?: Yes Plan: Evaluated by physical therapy who is recommending home health. Discharge planning consulted to set up home health for PT OT and senior living . - Time Within: within 48 hours
--- NOTE | 2019-03-30 13:44 | RADIOLOGY REPORT (SQ) ---
EXAM DESCRIPTION: CHEST 2 VIEWS COMPLETED DATE/TIME: 03/30/2019 1:33 pm REASON FOR STUDY: reassessment of fluid overload s/p diuresis COMPARISON: 03/16/2019. EXAM PARAMETERS: NUMBER OF VIEWS: two views TECHNIQUE: Digital Frontal and Lateral radiographic views of the chest acquired. RADIATION DOSE: NA LIMITATIONS: none FINDINGS: LUNGS AND PLEURA: Basilar densities and bilateral pleural effusions, right greater than le ft, unchanged. MEDIASTINUM AND HILAR STRUCTURES: No masses or contour abnormalities. HEART AND VASCULAR STRUCTURES: Cardiomegaly. BONES: No acute findings. HARDWARE: None in the chest. OTHER: No other significant finding. IMPRESSION: BASILAR DENSITIES AND BILATERAL PLEURAL EFFUSIONS, UNCHANGED. TECHNICAL DOCUMENTATION: JOB ID: [id number] [employer]- All Rights Reserved Reading location - IP/workstation name: [email or web address]
[2019-03-31 05:40] LABS: HEMATOCRIT 22.9 % (36.0-47.0); MEAN CORPUSCULAR HEMOGLOBIN 25.3 pg (27.0-33.4); MEAN CORPUSCULAR HGB CONC 31.9 g/dL (32.0-36.0); MEAN CORPUSCULAR VOLUME 79 fl (80-97); RED BLOOD COUNT 2.89 10^6/uL (3.72-5.28); RED CELL DISTRIBUTION WIDTH 30.3 % (11.5-14.0); WHITE BLOOD COUNT 3.4 10^3/uL (4.0-10.5)
[2019-03-31] MEDS: HEPARIN SOD (PORCINE) 5,000 UNIT/ML 1 ML VIAL SUBCUT SCH ×3 (05:55→21:36)
[2019-03-31] MEDS: LEVOTHYROXINE SODIUM 0.15 MG TABLET PO SCH (06:00)
[2019-03-31 06:03] LABS: ANION GAP 11 (5-19); BLOOD UREA NITROGEN 89 mg/dL (7-20); CALCIUM 8.9 mg/dL (8.4-10.2); CARBON DIOXIDE 28 mmol/L (22-30); CHLORIDE 97 mmol/L (98-107); GLUCOSE 311 mg/dL (75-110); POTASSIUM 4.8 mmol/L (3.6-5.0)
[2019-03-31 06:10] LABS: PLATELET COUNT 94 10^3/uL (150-450)
[2019-03-31 06:15] LABS: HEMOGLOBIN 7.3 g/dL (12.0-15.5)
[2019-03-31] MEDS: INSULIN LISPRO 100 UNIT/ML 3 ML VIAL SUBCUT SCH ×3 (07:31→16:19)
[2019-03-31] MEDS ORDERED: MIDODRINE HCL 5 MG TABLET PO SCH (10:00)
[2019-03-31] MEDS: SPIRONOLACTONE 25 MG TABLET PO SCH ×2 (10:33→17:39)
[2019-03-31] MEDS: FERROUS SULFATE 325 MG TABLET PO SCH (10:33)
[2019-03-31] MEDS: FUROSEMIDE 40 MG TABLET PO SCH ×2 (10:33→17:38)
[2019-03-31] MEDS: LACTULOSE SYRUP 20 GM/30 ML UDCUP PO SCH (10:33)
[2019-03-31] MEDS: POTASSIUM CHLORIDE 10 MEQ TABLET.ER PO SCH (10:33)
[2019-03-31] MEDS: INSULIN GLARGINE,HUM.REC.ANLOG 1,000 UNIT/10 ML VIAL SUBCUT SCH (10:35)
[2019-03-31] MEDS: URSODIOL 300 MG CAPSULE PO SCH ×2 (10:35→21:39)
[2019-03-31] MEDS: RIFAXIMIN 550 MG TABLET PO SCH ×2 (10:47→21:39)
[2019-03-31] MEDS ORDERED: INSULIN NPH (ISOPHANE), HUMAN 100 UNIT/ML 3 ML SUBCUT ONE (11:17)
--- NOTE | 2019-03-31 11:43 | PDOC PROGRESS REPORT ---
Subjective Progress Note for:: 03/31/19 Subjective:: Patient states that her back pain feels a lot better. She denies any shortness of breath. However I was informed by staff that an attempt to wean patient down to room air patient's oxygen desatted into low 80s on room air. Chest x-ray have obtained shows persistence of pleural effusions more in the right side than left. Reason For Visit: ACUTE RENAL FAILURE,PRIMARY BILIARY CHOLANGITIS, Physical Exam Vital Signs: Temp Pulse Resp BP Pulse Ox 98.0 F 79 20 105/43 L 97 03/31/19 08:04 03/31/19 08:04 03/31/19 08:04 03/31/19 08:04 03/31/19 08:04 Intake & Output 03/30/19 03/31/19 04/01/19 06:59 06:59 06:59 Intake Total 236 630 Output Total 50 Balance 186 630 Weight 55.1 kg 56.6 kg General appearance: PRESENT: no acute distress, cooperative Neck exam: ABSENT: JVD Respiratory exam: PRESENT: clear to auscultation josh, decreased breath sounds - base, symmetrical, unlabored. ABSENT: tachypnea, wheezes Cardiovascular exam: PRESENT: RRR, +S1, +S2. ABSENT: tachycardia GI/Abdominal exam: PRESENT: normal bowel sounds, soft. ABSENT: rebound, rigid, tenderness Neurological exam: PRESENT: alert, awake, oriented to person, oriented to place, oriented to time Results Laboratory Results: 03/31/19 05:08 03/31/19 05:08 03/31/19 03/31/19 03/31/19 05:08 05:08 05:08 WBC 3.4 L RBC 2.89 L Hgb 7.3 L Hct 22.9 L MCV 79 L MCH 25.3 L MCHC 31.9 L RDW 30.3 H Plt Count 94 L Sodium 136.2 L Potassium 4.8 Chloride 97 L Carbon Dioxide 28 Anion Gap 11 BUN 89 H Creatinine 1.97 H Est GFR ( Amer) 30 L Glucose 311 H Calcium 8.9 Albumin 3.3 L Impressions: Chest X-Ray 03/30/19 00:00 IMPRESSION: BASILAR DENSITIES AND BILATERAL PLEURAL EFFUSIONS, UNCHANGED. Assessment and Plan - Diagnosis (1) Acute respiratory failure with hypoxia Is this a current diagnosis for this admission?: Yes Plan: Unable to wean off oxygen. Patient reportedly desatted into the low 80s on room air but improves nicely on 3.5 L nasal cannula. Likely hypoxia secondary to significant pleural effusion which seems to have persisted despite diuresis. More so on the right side than the left. At this point, I have discussed with patient about the need for possible thoracentesis which he is up agreeable to especially given that diuresis is somewhat limited by patient's soft blood pressures. Check echocardiogram especially given her documented history of pulmonary hypertension Pulmonary consulted (2) Bilateral pleural effusion Is this a current diagnosis for this admission?: Yes Plan: Repeat chest x-ray image reviewed. R>L effusion. Likely secondary to cirrhosis versus CHF/pulmonary hypertension Patient will likely need thoracentesis at this point. Aggressive diuresis is limited by soft blood pressures (3) Hypotension Qualifiers: Hypotension type: other hypotension type Qualified Code(s): I95.89 - Other hypotension Is this a current diagnosis for this admission?: Yes Plan: Secondary to hepatic cirrhosis with third spacing and likely low intravascular volume. Avoid overdiuresis risking hepatorenal failure. Start on midodrine and give 25 g of albumin to see if this improves blood pr essure. (4) Primary biliary cirrhosis Is this a current diagnosis for this admission?: Yes Plan: Chronic liver failure. Has had cirrhosis for over 5 years. Continue with salt restriction, ursodiol. Lasix 20 mg twice daily. Aldactone 25 mg twice daily. (5) Acute on chronic kidney failure Is this a current diagnosis for this admission?: Yes Plan: Creatinine stabilizing around 1.9. Continue to monitor BMP. Gentle diuresis. Avoid dehydration. (6) Anemia Qualifiers: Anemia type: other cause Other causes of anemia: chronic disease, other Qualified Code(s): D63.8 - Anemia in other chronic diseases classified elsewhere Is this a current diagnosis for this admission?: Yes Plan: Likely secondary to chronic disease though with some underlying iron deficiency. Continue iron sulfate. Hemoglobin holding steady at this point. (7) Hepatic encephalopathy Is this a current diagnosis for this admission?: Yes Plan: Currently resolved. Continue lactulose and rifaximin. Monitor for dehydration. (8) Back pain Qualifiers: Back pain location: low back pain Chronicity: acute Back pain laterality: bilateral Sciatica presence: without sciatica Qualified Code(s): M54.5 - Low back pain Is this a current diagnosis for this admission?: Yes Plan: Involving bilateral paraspinal muscle regions. K pad. Tylenol as needed. Do not exceed 2 g daily given cirrhosis. (9) Physical debility Is this a current diagnosis for this admission?: Yes Plan: Evaluated by physical therapy who is recommending home health. Discharge planning consulted to set up home health for PT OT and assisted. - Time Time Spent with patient: 15-24 minutes
[2019-03-31] MEDS: ALBUMIN HUMAN 12.5 GM/50 ML RTUINJ IV SCH ×2 (12:31→13:25)
[2019-03-31] MEDS: MIDODRINE HCL 5 MG TABLET PO SCH ×2 (14:06→17:39)
[2019-03-31] MEDS ORDERED: INSULIN GLARGINE,HUM.REC.ANLOG 1,000 UNIT/10 ML VIAL SUBCUT SCH (22:00)
[2019-04-01] MEDS: HEPARIN SOD (PORCINE) 5,000 UNIT/ML 1 ML VIAL SUBCUT SCH ×3 (05:25→22:54)
[2019-04-01] MEDS: LEVOTHYROXINE SODIUM 0.15 MG TABLET PO SCH (05:27)
[2019-04-01 06:22] LABS: INTERNATIONAL RATION (INR) 1.37; PROTHROMBIN TIME 16.9 SEC (11.4-15.4)
[2019-04-01 06:23] LABS: PARTIAL THROMBOPLASTIN TIME 35.8 SEC (23.5-35.8)
[2019-04-01 06:30] LABS: HEMATOCRIT 23.5 % (36.0-47.0); MEAN CORPUSCULAR HEMOGLOBIN 25.5 pg (27.0-33.4); MEAN CORPUSCULAR HGB CONC 32.4 g/dL (32.0-36.0); MEAN CORPUSCULAR VOLUME 79 fl (80-97); RED BLOOD COUNT 2.99 10^6/uL (3.72-5.28); RED CELL DISTRIBUTION WIDTH 29.9 % (11.5-14.0); WHITE BLOOD COUNT 2.9 10^3/uL (4.0-10.5)
[2019-04-01 06:39] LABS: ALBUMIN 3.7 g/dL (3.5-5.0); ALKALINE PHOSPHATASE 82 U/L (38-126); ANION GAP 13 (5-19); ASPARTATE AMINO TRANSFERASE 25 U/L (14-36); BILIRUBIN,TOTAL 2.6 mg/dL (0.2-1.3); BLOOD UREA NITROGEN 90 mg/dL (7-20); CALCIUM 9.5 mg/dL (8.4-10.2); CARBON DIOXIDE 27 mmol/L (22-30); CHLORIDE 99 mmol/L (98-107); GLUCOSE 72 mg/dL (75-110); POTASSIUM 4.5 mmol/L (3.6-5.0); TOTAL PROTEIN 7.2 g/dL (6.3-8.2)
[2019-04-01] MEDS: INSULIN LISPRO 100 UNIT/ML 3 ML VIAL SUBCUT SCH ×3 (07:22→17:32)
[2019-04-01 07:46] LABS: HEMOGLOBIN 7.6 g/dL (12.0-15.5); PLATELET COUNT 97 10^3/uL (150-450)
[2019-04-01] MEDS: INSULIN GLARGINE,HUM.REC.ANLOG 1,000 UNIT/10 ML VIAL SUBCUT SCH ×2 (09:11→22:43)
[2019-04-01] MEDS: LACTULOSE SYRUP 20 GM/30 ML UDCUP PO SCH ×2 (09:11→09:35)
[2019-04-01] MEDS: FERROUS SULFATE 325 MG TABLET PO SCH ×2 (09:11→09:35)
[2019-04-01] MEDS: URSODIOL 300 MG CAPSULE PO SCH ×3 (09:11→22:43)
[2019-04-01] MEDS: POTASSIUM CHLORIDE 10 MEQ TABLET.ER PO SCH ×2 (09:11→09:35)
[2019-04-01] MEDS: RIFAXIMIN 550 MG TABLET PO SCH ×3 (09:12→22:43)
[2019-04-01] MEDS: MIDODRINE HCL 5 MG TABLET PO SCH ×4 (09:12→17:33)
--- NOTE | 2019-04-01 09:46 | RADIOLOGY REPORT (SQ) ---
EXAM DESCRIPTION: CHEST SINGLE VIEW COMPLETED DATE/TIME: 04/01/2019 9:25 am REASON FOR STUDY: S/P RT THORA COMPARISON: 03/30/2018 EXAM PARAMETERS: NUMBER OF VIEWS: One view. TECHNIQUE: Single frontal radiographic view of the chest acquired. RADIATION DOSE: NA LIMITATIONS: None. FINDINGS: LUNGS AND PLEURA: Mildly decreased size of the right-sided pleural effusion post thoracent esis. No pneumothorax. Residual mild bilateral effusions, right greater than left. Associated biba silar atelectasis. MEDIASTINUM AND HILAR STRUCTURES: No masses. Contour normal. HEART AND VASCULAR STRUCTURES: Enlarged, stable. BONES: No acute findings. HARDWARE: None in the chest. OTHER: No other significant finding. IMPRESSION: Decreased right-sided pleural effusion post thoracentesis. No pneumothorax. Residual mild bilateral effusions and bibasilar atelectasis, right greater the left. TECHNICAL DOCUMENTATION: JOB ID: [id number] [employer]- All Rights Reserved Reading location - IP/workstation name: [email or web address]
[2019-04-01 10:50] LABS: FLUID APPEARANCE CLOUDY; FLUID COLOR ORANGE; FLUID SOURCE LUNG; FLUID TYPE PLEURAL; FLUID VISCOSITY LIQUID
[2019-04-01] MEDS ORDERED: NORMAL SALINE 1000 ML 500 ML IV ONE (11:52)
--- NOTE | 2019-04-01 12:34 | PDOC PROGRESS REPORT ---
Subjective Progress Note for:: 04/01/19 Subjective:: Patient underwent thoracentesis of her right side today. Patient currently has some soreness in her back. Patient otherwise denies any shortness of breath at this time. Reason For Visit: ACUTE RENAL FAILURE,PRIMARY BILIARY CHOLANGITIS, Physical Exam Vital Signs: Temp Pulse Resp BP Pulse Ox 97.3 F 64 18 90/33 L 100 04/01/19 07:34 04/01/19 07:34 04/01/19 07:34 04/01/19 07:34 04/01/19 11:12 Intake & Output 03/31/19 04/01/19 04/02/19 06:59 06:59 06:59 Intake Total 630 1033 Output Total 600 Balance 630 433 Weight 56.6 kg 83.3 kg 54.5 kg General appearance: PRESENT: no acute distress, cooperative, other - Appears fatigued Neck exam: ABSENT: JVD Respiratory exam: PRESENT: clear to auscultation josh, decreased breath sounds - Decreased basilar breath sounds, unlabored. ABSENT: tachypnea, wheezes Cardiovascular exam: PRESENT: RRR, +S1, +S2. ABSENT: tachycardia GI/Abdominal exam: PRESENT: soft. ABSENT: rebound, rigid, tenderness Extremities exam: ABSENT: pedal edema Neurological exam: PRESENT: alert, awake, oriented to person, oriented to place, oriented to time Results Laboratory Results: 04/01/19 05:36 04/01/19 05:36 04/01/19 04/01/19 04/01/19 05:36 05:36 08:55 WBC 2.9 L RBC 2.99 L Hgb 7.6 L Hct 23.5 L MCV 79 L MCH 25.5 L MCHC 32.4 RDW 29.9 H Plt Count 97 L Sodium 139.2 Potassium 4.5 Chloride 99 Carbon Dioxide 27 Anion Gap 13 BUN 90 H Creatinine 2.04 H Est GFR ( Amer) 29 L Glucose 72 L Calcium 9.5 Total Bilirubin 2.6 H AST 25 Alkaline Phosphatase 82 Total Protein 7.2 Albumin 3.7 Fluid Type PLEURAL Fluid Source LUNG Fluid Color ORANGE Fluid Appearance CLOUDY Fluid Viscosity LIQUID Fluid WBC 233 Fluid RBC [id number] Assessment and Plan - Diagnosis (1) Acute respiratory failure with hypoxia Is this a current diagnosis for this admission?: Yes Plan: Likely hypoxia secondary to significant pleural effusion which seems to have persisted despite diuresis. More so on the right side than the left. Given inability to wean off oxygen [required 3.5 L nasal cannula and desats to the low 80s on room air], and soft blood pressures/renal function limiting aggressiveness of diuresis, thoracentesis was scheduled. Which was performed this morning. 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 Labs sent. Repeat chest x-ray (3) Hypotension Qualifiers: Hypotension type: other hypotension type Qualified Code(s): I95.89 - Other hypotension Is this a current diagnosis for this admission?: Yes Plan: Secondary to hepatic cirrhosis with third spacing and likely low intravascular volume. Avoid overdiuresis risking hepatorenal failure. I started patient on midodrine 5 mg 3 times daily yesterday and gave 25 mg albumin yesterday. I will give patient a small bolus of 500 cc normal saline today Continue to monitor blood pressures. Hold Lasix and Aldactone today (4) Primary biliary cirrhosis Is this a current diagnosis for this admission?: Yes Plan: Chronic liver failure. Has had cirrhosis for over 5 years. Continue with salt restriction, ursodiol. Diuretics held today giving increased creatinine and persistent hypotension- Lasix 20 mg twice daily. Aldactone 25 mg twice daily. (5) Acute on chronic kidney failure Is this a current diagnosis for this admission?: Yes Plan: Creatinine increased to 2 today. Hold diuretics and give 500 cc normal saline. Nephrology consulted. Continue to monitor creatinine. (6) Diabetes mellitus Qualifiers: Diabetes mellitus type: other specified (including BALJEET) Is this a current diagnosis for this admission?: Yes Plan: Lantus 18 units twice daily. Monitor Accu-Cheks and adjust medication as needed. Sliding scale coverage. (7) Anemia Qualifiers: Anemia type: other cause Other causes of anemia: chronic disease, other Qualified Code(s): D63.8 - Anemia in other chronic diseases classified elsewhere Is this a current diagnosis for this admission?: Yes Plan: Likely secondary to chronic disease though with some underlying iron deficiency. Continue iron sulfate. Hemoglobin holding steady at this point. (8) Hepatic encephalopathy Is this a current diagnosis for this admission?: Yes Plan: Currently resolved. Continue small dose of lactulose and rifaximin. Monitor for dehydration. (9) Back pain Qualifiers: Back pain location: low back pain Chronicity: acute Back pain laterality: bilateral Sciatica presence: without sciatica Qualified Code(s): M54.5 - Low back pain Is this a current diagnosis for this admission?: Yes Plan: Involving bilateral paraspinal muscle regions. K pad. Tylenol as needed. Do not exceed 2 g daily given cirrhosis. (10) Physical debility Is this a current diagnosis for this admission?: Yes Plan: Evaluated by physical therapy who is recommending home health. Discharge planning following - Time Time Spent with patient: Less than 15 minutes
--- NOTE | 2019-04-01 12:48 | PDOC CONSULTATION ---
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 Patient has been in the hospital between [place] and [facility] now for approximately 3 weeks. Patient is quite debilitated with poor intake.Other comorbidities of significance includes diabetes type 1, chronic anemia with pancytopenia, chronic hypotension and history of recurrent hepatic encephalopathy.According to she has 3-4 bowel movements every day. No history of any abdominal pains, fever or chills. mentions that she has ascites but not large enough to be tapped. Past Medical History Pulmonary Medical History: Reports: Chronic Obstructive Pulmonary Disease (COPD) Endocrine Medical History: Reports: Diabetes Mellitus Type 1, Hypothyroidism GI Medical History: Reports: Cirrhosis, Gastroesophageal Reflux Disease Musculoskeltal Medical History: Reports: Arthritis Psychiatric Medical History: Denies: Depression Hematology Medical History: Reports Anemia Past Surgical History Past Surgical History: Reports: Section - x2, Cholecystectomy, Herniorrhaphy, Hysterectomy, Orthopedic Surgery, Other - Tips procedure Social History Lives with: Spouse/Significant other Smoking Status: Never Smoker Electronic Cigarette use?: No Frequency of Alcohol Use: None Hx Recreational Drug Use: No Drugs: None Hx Prescription Drug Abuse: No - Advance Directive Resuscitation Status: Full Code Family History Parental Family History Reviewed: Yes - negative for esrd Children Family History Reviewed: No Sibling(s) Family History Reviewed.: No Medication/Allergy Home Medications: Furosemide [Lasix 40 mg Tablet] 20 mg PO BID 03/14/19 Insulin Degludec [Tresiba Flextouch U-200] 16 units SUBCUT BID 03/14/19 Lactulose [Cephulac Syrup 20 gm/30 ml Udcup] 20 gm PO TID 03/14/19 Levothyroxine Sodium 150 mcg PO Q6AM 03/14/19 Pantoprazole Sodium [Protonix [address] Tablet] 40 mg PO QAM 03/14/19 Potassium Chloride [Klor-Con M20] 20 mg PO DAILY 03/14/19 Rifaximin [Xifaxan 550 mg Tablet] 550 mg PO Q12 03/14/19 Spironolactone [Aldactone] 100 mg PO BID 03/14/19 Ursodiol [Actigall 300 mg Capsule] 300 mg PO Q12 03/14/19 Allergies/Adverse Reactions: No Known Allergies Allergy (Verified 09/11/18 12:48) Review of Systems Constitutional: PRESENT: anorexia, fatigue, weakness, weight loss. ABSENT: chills, fever(s), headache(s), night sweats Nose, Mouth, and Throat: ABSENT: mouth pain, sore throat Cardiovascular: PRESENT: dyspnea on exertion. ABSENT: chest pain, edema, orthropnea, palpitations Respiratory: PRESENT: dyspnea. ABSENT: hemoptysis Gastrointestinal: ABSENT: abdominal pain, bloating, coffee ground emesis, diarrhea, dysphagia, heartburn, hematemesis, hematochezia Genitourinary: ABSENT: difficulty urinating, dysuria, hematuria Musculoskeletal: ABSENT: deformity, joint swelling Integumentary: ABSENT: lesions, rash Neurological: ABSENT: abnormal gait, abnormal movements, convulsions, focal weakness, frequent falls, numbness, paresthesias Psychiatric: PRESENT: depression Hematologic/Lymphatic: ABSENT: easy bruising, lymphadenopathy Physical Exam Vital Signs: Temp Pulse Resp BP Pulse Ox 97.3 F 64 18 90/33 L 100 04/01/19 07:34 04/01/19 07:34 04/01/19 07:34 04/01/19 07:34 04/01/19 11:12 Intake & Output 03/31/19 04/01/19 04/02/19 06:59 06:59 06:59 Intake Total 630 1033 Output Total 600 Balance 630 433 Weight 56.6 kg 83.3 kg 54.5 kg General appearance: PRESENT: no acute distress Exam: Looks very weak, sick and debilitated. Eye exam: PRESENT: EOMI, PERRLA. ABSENT: scleral icterus Ear exam: PRESENT: normal external ear exam Mouth exam: PRESENT: neck supple. ABSENT: moist Neck exam: ABSENT: lymphadenopathy, meningismus, tenderness, thyromegaly, tracheal deviation Respiratory exam: PRESENT: clear to auscultation josh, decreased breath sounds. ABSENT: crackles Cardiovascular exam: PRESENT: +S1, +S2 GI/Abdominal exam: PRESENT: ascites, distended, normal bowel sounds. ABSENT: firm, guarding, organomegaly, soft Extremities exam: ABSENT: pedal edema Neurological exam: PRESENT: altered, awake, oriented to person, oriented to place Psychiatric exam: PRESENT: anxious Skin exam: ABSENT: cyanosis, erythema, mottled, rash Results Laboratory Results: 04/01/19 05:36 04/01/19 05:36 04/01/19 04/01/19 04/01/19 05:36 05:36 08:55 WBC 2.9 L RBC 2.99 L Hgb 7.6 L Hct 23.5 L MCV 79 L MCH 25.5 L MCHC 32.4 RDW 29.9 H Plt Count 97 L Sodium 139.2 Potassium 4.5 Chloride 99 Carbon Dioxide 27 Anion Gap 13 BUN 90 H Creatinine 2.04 H Est GFR ( Amer) 29 L Glucose 72 L Calcium 9.5 Total Bilirubin 2.6 H AST 25 Alkaline Phosphatase 82 Total Protein 7.2 Albumin 3.7 Fluid Type PLEURAL Fluid Source LUNG Fluid Color ORANGE Fluid Appearance CLOUDY Fluid Viscosity LIQUID Fluid WBC 233 Fluid RBC [id number] Assessment & Plan - Diagnosis (1) Acute on chronic kidney failure Is this a current diagnosis for this admission?: Yes Plan: Patient is clinically dehydrated. Besides that she could also be progressing into hepatorenal syndrome. Baseline creatinine was 1.0 last month. She needs to be fluid resuscitated and will order fluids for that. See if her blood pressure will also respond if not be allowed to adjust Midodrin which is just been started by the hospitalist. (2) Acute respiratory failure with hypoxia Is this a current diagnosis for this admission?: Yes Plan: Most likely in the setting of progressive pulmonary hypertension and bilateral pleural effusion for which she just had right thoracentesis. She has some a scites but not large enough to compromise her diaphragm and respiratory movements. (3) Bilateral pleural effusion Is this a current diagnosis for this admission?: Yes Plan: She is status post extraction of 1 L of right thoracentesis. Being managed by hospitalist. (4) Diabetes mellitus Qualifiers: Diabetes mellitus type: other specified (including BALJEET) Is this a current diagnosis for this admission?: Yes Plan: Persistent hypoglycemia in the setting of severe liver failure. Will adjust fluids to include D5. Recommend augmentation of that with D10 or D50 as needed. (5) Hypotension Qualifiers: Hypotension type: other hypotension type Qualified Code(s): I95.89 - Other hypotension Is this a current diagnosis for this admission?: Yes Plan: In the setting of severe liver failure with portal hypertension. (6) Physical debility Is this a current diagnosis for this admission?: Yes Plan: In the setting of progressive liver failure with cirrhosis. (7) Primary biliary cirrhosis Is this a current diagnosis for this admission?: Yes Plan: Status quo. Was being considered for liver transplant until recent discovery of pulmonary hypertension and has been taken off the list as per patient's . (8) Anemia Qualifiers: Anemia type: other cause Other causes of anemia: chronic disease, other Qualified Code(s): D63.8 - Anemia in other chronic diseases classified elsewhere Is this a current diagnosis for this admission?: Yes Plan: As part of pancytopenia. Monitor for need for transfusions. (9) Hypoglycemia Plan: We will add D5W to fluid resuscitation. This needs to be augmented with D5 10 of D50 as needed.
--- NOTE | 2019-04-01 13:00 | RADIOLOGY REPORT (SQ) ---
EXAM DESCRIPTION: U/S THORACENTESIS WITH IMAGING COMPLETED DATE/TIME: 04/01/2019 9:28 am REASON FOR STUDY: Right thora tomorrow am. pleural effus. hypoxia COMPARISON: None. LIMITATIONS: None. PROCEDURE: Procedure, risks, benefit, and alternative explained to patient who then gave written con sent. The posterior right chest wall was marked using ultrasound guidance. A time-out was called fo r correct marking verification. Chest prepped and draped using sterile technique. Local anesthesia a chieved using 3.0 ml of 1% lidocaine injection. A 6fr Safe-T- Centesis set was introduced into the r ight pleural space. Fluid was aspirated. The catheter was removed and the entry site was covered wi th sterile bandage. No immediate complications noted. Images acquired during the procedure were stored on PACS. FINDINGS: ENTRY SITE: posterior right chest. FLUID VOLUME: 1000 cc FLUID ANALYSIS: [place] OTHER: Fluid sent to the lab for testing. IMPRESSION: SUCCESSFUL THORACENTESIS USING ULTRASOUND GUIDANCE. COMMENT: Patient medication list reviewed: Yes- Quality ID# [id number]:Eligible professional attests to doc umenting in the medical record they obtained, updated, or reviewed the patient's current medications. TECHNICAL DOCUMENTATION: JOB ID: [id number] [employer]- All Rights Reserved Reading location - IP/workstation name: [email or web address]
[2019-04-01] MEDS: DEXTROSE 5%-NORMAL SALINE 1,000 ML IV PRN (13:45)
--- NOTE | 2019-04-01 13:54 | RADIOLOGY REPORT (SQ) ---
EXAM DESCRIPTION: CHEST SINGLE VIEW COMPLETED DATE/TIME: 04/01/2019 11:34 am REASON FOR STUDY: 2 HOURS S/P RT THORA COMPARISON: Earlier the same day. NUMBER OF VIEWS: One view. TECHNIQUE: Single frontal radiographic image of the chest acquired. LIMITATIONS: None. FINDINGS: LUNGS AND PLEURA: Stable appearance. No pneumothorax. MEDIASTINUM AND HEART: Stable heart size and mediastinal structures. BONY STRUCTURES: No acute findings. HARDWARE: None. OTHER: No other significant finding. IMPRESSION: No pneumothorax. TECHNICAL DOCUMENTATION: JOB ID: [id number] Reading location - IP/workstation name: [facility]
[2019-04-02] MEDS: DEXTROSE 5%-NORMAL SALINE 1,000 ML IV PRN (02:43)
[2019-04-02] MEDS: HEPARIN SOD (PORCINE) 5,000 UNIT/ML 1 ML VIAL SUBCUT SCH ×3 (05:17→22:41)
[2019-04-02] MEDS: LEVOTHYROXINE SODIUM 0.15 MG TABLET PO SCH (05:19)
[2019-04-02 06:57] LABS: ALBUMIN 3.4 g/dL (3.5-5.0); ALKALINE PHOSPHATASE 82 U/L (38-126); ANION GAP 13 (5-19); ASPARTATE AMINO TRANSFERASE 22 U/L (14-36); BILIRUBIN,DIRECT 1.9 mg/dL (0.0-0.4); BILIRUBIN,TOTAL 2.6 mg/dL (0.2-1.3); BLOOD UREA NITROGEN 81 mg/dL (7-20); CALCIUM 8.8 mg/dL (8.4-10.2); CARBON DIOXIDE 26 mmol/L (22-30); CHLORIDE 100 mmol/L (98-107); GLUCOSE 257 mg/dL (75-110); POTASSIUM 4.7 mmol/L (3.6-5.0); TOTAL PROTEIN 6.9 g/dL (6.3-8.2)
[2019-04-02] MEDS: INSULIN LISPRO 100 UNIT/ML 3 ML VIAL SUBCUT SCH ×3 (08:11→16:01)
[2019-04-02] MEDS: FERROUS SULFATE 325 MG TABLET PO SCH (09:50)
[2019-04-02] MEDS: MIDODRINE HCL 5 MG TABLET PO SCH ×3 (09:50→18:11)
[2019-04-02] MEDS: POTASSIUM CHLORIDE 10 MEQ TABLET.ER PO SCH (09:50)
[2019-04-02] MEDS: URSODIOL 300 MG CAPSULE PO SCH ×2 (09:50→23:08)
[2019-04-02] MEDS: LACTULOSE SYRUP 20 GM/30 ML UDCUP PO SCH (09:50)
[2019-04-02] MEDS: RIFAXIMIN 550 MG TABLET PO SCH ×2 (09:51→23:08)
[2019-04-02] MEDS: INSULIN GLARGINE,HUM.REC.ANLOG 1,000 UNIT/10 ML VIAL SUBCUT SCH ×2 (09:54→22:40)
--- NOTE | 2019-04-02 11:28 | RADIOLOGY REPORT (SQ) ---
EXAM DESCRIPTION: CHEST 2 VIEWS COMPLETED DATE/TIME: 04/02/2019 10:20 am REASON FOR STUDY: s/p thoracentesis. effusion COMPARISON: AP view of the chest from to 06/24/2019. EXAM PARAMETERS: NUMBER OF VIEWS: Two views. TECHNIQUE: PA and lateral views of the chest were obtained.. RADIATION DOSE: NA LIMITATIONS: none FINDINGS: LUNGS AND PLEURA: Asymmetric bibasilar pleural and parenchymal opacities that could repre sent a combination of pleural fluid, atelectasis and/or consolidation. There is no postprocedural pn eumothorax. MEDIASTINUM AND HILAR STRUCTURES: Stable mediastinal and hilar contours. HEART AND VASCULAR STRUCTURES: Stable cardiomegaly. BONES: No acute findings. HARDWARE: None in the chest. OTHER: No other finding. IMPRESSION: No postprocedural pneumothorax. TECHNICAL DOCUMENTATION: JOB ID: [id number] [employer]- All Rights Reserved Reading location - IP/workstation name: [email or web address]
[2019-04-02 13:22] LABS: TOTAL PROTEIN BODY FLUID 2.2 g/dL (.)
--- NOTE | 2019-04-02 13:47 | PDOC PROGRESS REPORT ---
Subjective Progress Note for:: 04/02/19 Subjective:: Patient is status post thoracentesis. Chest x-ray done today reveals no evidence of pneumothorax. Patient is still on 3 L of oxygen and apparently she was unable to be weaned off overnight. Reason For Visit: ACUTE RENAL FAILURE,PRIMARY BILIARY CHOLANGITIS, Physical Exam Vital Signs: Temp Pulse Resp BP Pulse Ox 97.3 F 73 18 98/39 L 93 04/02/19 12:00 04/02/19 12:00 04/02/19 12:00 04/02/19 12:00 04/02/19 12:00 Intake & Output 04/01/19 04/02/19 04/03/19 06:59 06:59 06:59 Intake Total 1033 2877 218 Output Total 600 600 200 Balance 433 2277 18 Weight 83.3 kg 54.8 kg General appearance: PRESENT: no acute distress Head exam: PRESENT: atraumatic Neck exam: ABSENT: JVD Respiratory exam: PRESENT: decreased breath sounds, unlabored. ABSENT: accessory muscle use, rhonchi Cardiovascular exam: PRESENT: RRR, +S1, +S2 GI/Abdominal exam: PRESENT: soft. ABSENT: tenderness Rectal exam: PRESENT: deferred Neurological exam: PRESENT: alert, awake, oriented to person, oriented to place, oriented to time, CN II-XII grossly intact Psychiatric exam: PRESENT: appropriate affect Results Laboratory Results: 04/01/19 05:36 04/02/19 05:30 04/01/19 04/02/19 08:55 05:30 Sodium 139.3 Potassium 4.7 Chloride 100 Carbon Dioxide 26 Anion Gap 13 BUN 81 H Creatinine 1.85 H Est GFR ( Amer) 33 L Glucose 257 H Calcium 8.8 Total Bilirubin 2.6 H AST 22 Alkaline Phosphatase 82 Total Protein 6.9 Albumin 3.4 L Fluid Glucose 107 Fluid Total Protein 2.2 Fluid LDH 115 Impressions: Thoracentesis Ultrasound 04/01/19 00:00 IMPRESSION: SUCCESSFUL THORACENTESIS USING ULTRASOUND GUIDANCE. Chest X-Ray 04/02/19 06:00 IMPRESSION: No postprocedural pneumothorax. Assessment and Plan - Diagnosis (1) Acute on chronic kidney failure Qualifiers: Chronic kidney disease stage: stage 3 (moderate) Is this a current diagnosis for this admission?: Yes Plan: Follow up on kidney function. Continue to monitor creatinine. (2) Acute respiratory failure with hypoxia Is this a current diagnosis for this admission?: Yes Plan: Likely hypoxia secondary to significant pleural effusion which seems to have persisted despite diuresis and thoracentesis. She continues on 3.5 L of oxygen. Follow-up with pulmonary consult (3) Back pain Qualifiers: Back pain location: low back pain Chronicity: acute Back pain laterality: bilateral Sciatica presence: without sciatica Qualified Code(s): M54.5 - Low back pain Is this a current diagnosis for this admission?: Yes Plan: Involving bilateral paraspinal muscle regions. K pad. Tylenol as needed. Do not exceed 2 g daily given cirrhosis. (4) Bilateral pleural effusion Is this a current diagnosis for this admission?: Yes (5) Diabetes mellitus Qualifiers: Diabetes mellitus type: other specified (including BALJEET) Is this a current diagnosis for this admission?: Yes Plan: Lantus 18 units twice daily. Monitor Accu-Cheks and adjust medication as needed. Sliding scale coverage. (6) Hypotension Qualifiers: Hypotension type: other hypotension type Qualified Code(s): I95.89 - Other hypotension Is this a current diagnosis for this admission?: Yes (7) Physical debility Is this a current diagnosis for this admission?: Yes (8) Primary biliary cirrhosis Is this a current diagnosis for this admission?: Yes Plan: Chronic liver failure. Has had cirrhosis for over 5 years. Continue with salt restriction, ursodiol. - Plan Summary Summary: Acute hypoxemic respiratory failure Bilateral pleural effusions Hypotension Primary biliary cirrhosis Acute on chronic kidney disease Diabetes mellitus Anemia of chronic disease Hepatic encephalopathy Back pain Acute debility - Time Time Spent with patient: 15-24 minutes Medications reviewed and adjusted accordingly: Yes Anticipated discharge: Home
--- NOTE | 2019-04-02 16:25 | PDOC CONSULTATION ---
Consultation Consult Date: 04/02/19 Attending physician:: SCHUYLER COSTA Provider Consulted: LATRICIA BERKOWITZ Consult reason:: Dyspnea/hypoxia History of Present Illness Admission Date/PCP: 03/27/19 21:07 RUTH SHELDON History of Present Illness: MAURA CHRIS is a 68 year old female presented after several days of cough productive of purulent phlegm she denies any hemoptysis PPD status is negative dates unknown no history of chronic lung disease as a child or adolescent she admits to exposure to large amounts of passive smoke as a child as well as an adult. 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 She sleeps on 2-3 pillows, occasional PND occasional nocturnal cough, no edema. She admits to snoring restless sleep nocturia 2-3 times per night unrestful sleep and daytime somnolence. Past Medical History Cardiac Medical History: Reports: Congestive Heart Failure, Hypertension Pulmonary Medical History: Reports: Chronic Obstructive Pulmonary Disease (COPD) EENT Medical History: Denies: Throat Neurological Medical History: Denies: Migraine, Multiple Sclerosis, Seizures Endocrine Medical History: Reports: Diabetes Mellitus Type 1, Diabetes Mellitus Type 2, Hypothyroidism Malignancy Medical History: Reports: None GI Medical History: Reports: Cirrhosis, Gastroesophageal Reflux Disease Musculoskeltal Medical History: Reports: Arthritis Psychiatric Medical History: Denies: Depression Traumatic Medical History: Denies: Traumatic Brain Injury Hematology: Reports: Anemia Denies: Sickle Cell Disease Infectious Medical History: Denies: HIV Past Surgical History Past Surgical History: Reports: Section - x2, Cholecystectomy, Herniorrhaphy, Hysterectomy, Orthopedic Surgery, Other - Tips procedure Social History Information Source: Patient, [facility] Records 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 Lives with: Spouse/Significant other Smoking Status: Never Smoker Frequency of Alcohol Use: None Hx Recreational Drug Use: No Drugs: None Hx Prescription Drug Abuse: No Do you have pets?: No Have you had any respiratory illnesses as a child?: No Have you been exposed to any sick contacts recently?: No Have you had any recent respiratory illnesses?: No Have you travelled outside of [place] in the past 12 months?: Yes - Advance Directive Resuscitation Status: Full Code Family History Family History: COPD Parental Family History Reviewed: Yes Children Family History Reviewed: Yes Sibling(s) Family History Reviewed.: Yes Medication/Allergy Home Medications: Furosemide [Lasix 40 mg Tablet] 20 mg PO BID 03/14/19 Insulin Degludec [Tresiba Flextouch U-200] 16 units SUBCUT BID 03/14/19 Lactulose [Cephulac Syrup 20 gm/30 ml Udcup] 20 gm PO TID 03/14/19 Levothyroxine Sodium 150 mcg PO Q6AM 03/14/19 Pantoprazole Sodium [Protonix [address] Tablet] 40 mg PO QAM 03/14/19 Potassium Chloride [Klor-Con M20] 20 mg PO DAILY 03/14/19 Rifaximin [Xifaxan 550 mg Tablet] 550 mg PO Q12 03/14/19 Spironolactone [Aldactone] 100 mg PO BID 03/14/19 Ursodiol [Actigall 300 mg Capsule] 300 mg PO Q12 03/14/19 Allergies/Adverse Reactions: No Known Allergies Allergy (Verified 09/11/18 12:48) Review of Systems All systems: reviewed and no additional remarkable complaints except as stated Physical Exam Vital Signs: Temp Pulse Resp BP Pulse Ox 98.1 F 68 18 91/35 L 94 04/02/19 08:00 04/02/19 08:00 04/02/19 08:00 04/02/19 08:00 04/02/19 08:00 Intake & Output 04/01/19 04/02/19 04/03/19 06:59 06:59 06:59 Intake Total 1033 2877 Output Total 600 600 Balance 433 2277 Weight 83.3 kg 54.8 kg General appearance: PRESENT: no acute distress, cooperative, disheveled, thin, well-developed Head exam: PRESENT: atraumatic, normocephalic Eye exam: PRESENT: conjunctiva pale, EOMI. ABSENT: nystagmus, periorbital swelling, scleral icterus Mouth exam: PRESENT: dry mucosa, neck supple, tongue midline Teeth exam: PRESENT: poor dentation Neck exam: ABSENT: carotid bruit, full ROM, JVD, lymphadenopathy, meningismus, tenderness, thyromegaly, tracheal deviation, tracheostomy, other Respiratory exam: PRESENT: decreased breath sounds, prolonged expiratory phas, rales, rhonchi, symmetrical, unlabored. ABSENT: retraction Cardiovascular exam: PRESENT: RRR, +S1, +S2 Pulses: PRESENT: normal radial pulses GI/Abdominal exam: PRESENT: soft. ABSENT: guarding, rebound, tenderness Extremities exam: ABSENT: calf tenderness, clubbing, joint swelling, pedal edema, tenderness Musculoskeletal exam: ABSENT: deformity, dislocation Neurological exam: PRESENT: alert, awake Psychiatric exam: PRESENT: appropriate affect Skin exam: PRESENT: dry, warm Results Laboratory Results: 04/01/19 05:36 04/02/19 05:30 04/01/19 04/02/19 08:55 05:30 Sodium 139.3 Potassium 4.7 Chloride 100 Carbon Dioxide 26 Anion Gap 13 BUN 81 H Creatinine 1.85 H Est GFR ( Amer) 33 L Glucose 257 H Calcium 8.8 Total Bilirubin 2.6 H AST 22 Alkaline Phosphatase 82 Total Protein 6.9 Albumin 3.4 L Fluid Type PLEURAL Fluid Source LUNG Fluid Color ORANGE Fluid Appearance CLOUDY Fluid Viscosity LIQUID Fluid WBC 233 Fluid RBC [id number] Impressions: Thoracentesis Ultrasound 04/01/19 00:00 IMPRESSION: SUCCESSFUL THORACENTESIS USING ULTRASOUND GUIDANCE. Chest X-Ray 04/01/19 11:15 IMPRESSION: No pneumothorax. Assessment & Plan - Diagnosis (1) Acute on chronic kidney failure Qualifiers: Chronic kidney disease stage: stage 3 (moderate) Is this a current diagnosis for this admission?: Yes Plan: per nephrology (2) Acute respiratory failure with hypoxia Is this a current diagnosis for this admission?: Yes Plan: bipap i=12;e=6 45 % (3) Bilateral pleural effusion Is this a current diagnosis for this admission?: Yes Plan: bilateral throacentesis (4) Primary biliary cirrhosis Is this a current diagnosis for this admission?: Yes Plan: per gi med (5) Pancytopenia Is this a current diagnosis for this admission?: Yes Plan: secondary to PBC - Time Time Spent: 50 to 70 Minutes
[2019-04-03 04:46] LABS: ABSOLUTE EOSINOPHILS # (AUTO) 0.2 10^3/uL (0.0-0.6); ABSOLUTE LYMPHOCYTES (AUTO) 0.8 10^3/uL (0.5-4.7); ABSOLUTE MONOCYTES (AUTO) 0.4 10^3/uL (0.1-1.4); ABSOLUTE NEUT (AUTO) 1.7 10^3/uL (1.7-8.2); BASOPHILS % (AUTO) 1.3 % (0-2); EOSINOPHILS % (AUTO) 5.2 % (0-6); HEMATOCRIT 23.9 % (36.0-47.0); LYMPHOCYTES % (AUTO) 26.7 % (13-45); MEAN CORPUSCULAR HEMOGLOBIN 25.8 pg (27.0-33.4); MEAN CORPUSCULAR HGB CONC 32.3 g/dL (32.0-36.0); MEAN CORPUSCULAR VOLUME 80 fl (80-97); MONOCYTES % (AUTO) 12.3 % (3-13); RED CELL DISTRIBUTION WIDTH 30.6 % (11.5-14.0); SEGMENTED NEUTROPHILS % (AUTO) 54.5 % (42-78); TOTAL CELLS COUNTED % (AUTO) 100 %; WHITE BLOOD COUNT 3.1 10^3/uL (4.0-10.5)
[2019-04-03 04:50] LABS: HEMOGLOBIN 7.7 g/dL (12.0-15.5)
[2019-04-03 04:51] LABS: PLATELET COUNT 96 10^3/uL (150-450)
[2019-04-03 04:54] LABS: ANION GAP 12 (5-19); BLOOD UREA NITROGEN 68 mg/dL (7-20); CARBON DIOXIDE 24 mmol/L (22-30); CHLORIDE 104 mmol/L (98-107); POTASSIUM 4.5 mmol/L (3.6-5.0)
[2019-04-03 05:21] LABS: GLUCOSE 57 mg/dL (75-110)
[2019-04-03] MEDS: HEPARIN SOD (PORCINE) 5,000 UNIT/ML 1 ML VIAL SUBCUT SCH ×3 (05:21→22:05)
[2019-04-03] MEDS: LEVOTHYROXINE SODIUM 0.15 MG TABLET PO SCH (05:22)
[2019-04-03 06:41] LABS: HYPOCHROMASIA SLIGHT; TOXIC GRANULATION SLIGHT; TOXIC VACUOLATION PRESENT
[2019-04-03 06:42] LABS: ANISOCYTOSIS 3+; PLATELET COMMENT DECREASED
[2019-04-03] MEDS: INSULIN LISPRO 100 UNIT/ML 3 ML VIAL SUBCUT SCH ×3 (09:50→17:00)
[2019-04-03] MEDS: URSODIOL 300 MG CAPSULE PO SCH ×2 (09:57→23:14)
[2019-04-03] MEDS: LACTULOSE SYRUP 20 GM/30 ML UDCUP PO SCH (09:57)
[2019-04-03] MEDS: RIFAXIMIN 550 MG TABLET PO SCH (09:57)
[2019-04-03] MEDS: INSULIN GLARGINE,HUM.REC.ANLOG 1,000 UNIT/10 ML VIAL SUBCUT SCH ×2 (09:57→23:13)
[2019-04-03] MEDS: POTASSIUM CHLORIDE 10 MEQ TABLET.ER PO SCH (09:57)
[2019-04-03] MEDS: FERROUS SULFATE 325 MG TABLET PO SCH (09:57)
[2019-04-03] MEDS: MIDODRINE HCL 5 MG TABLET PO SCH ×3 (09:57→17:00)
--- NOTE | 2019-04-03 12:33 | PDOC PROGRESS REPORT ---
Subjective Progress Note for:: 04/03/19 Reason For Visit: Patient looks and feels better than when I saw her last. She is more awake and alert. She is got better appetite. No nausea vomiting. Better urine output. by the bedside was happy with the progress. Labs and medications were reviewed that showed downtrending of the creatinine. Physical Exam Vital Signs: Temp Pulse Resp BP Pulse Ox 97.8 F 69 14 95/38 L 96 04/03/19 07:53 04/03/19 07:53 04/03/19 07:53 04/03/19 07:53 04/03/19 07:53 Intake & Output 04/02/19 04/03/19 04/04/19 06:59 06:59 06:59 Intake Total 2877 696 Output Total 600 1025 Balance 2277 -329 Weight 54.8 kg 56.9 kg General appearance: PRESENT: no acute distress Respiratory exam: PRESENT: clear to auscultation josh. ABSENT: crackles Cardiovascular exam: PRESENT: +S1, +S2 GI/Abdominal exam: PRESENT: ascites, distended, normal bowel sounds. ABSENT: firm, guarding, organomegaly, soft Extremities exam: ABSENT: pedal edema Neurological exam: PRESENT: alert, awake Psychiatric exam: PRESENT: appropriate affect Results Laboratory Results: 04/03/19 04:07 04/03/19 04:07 04/01/19 04/03/19 04/03/19 08:55 04:07 04:07 WBC 3.1 L RBC 3.00 L Hgb 7.7 L Hct 23.9 L MCV 80 MCH 25.8 L MCHC 32.3 RDW 30.6 H Plt Count 96 L Seg Neutrophils % 54.5 Sodium 139.8 Potassium 4.5 Chloride 104 Carbon Dioxide 24 Anion Gap 12 BUN 68 H Creatinine 1.55 H Est GFR ( Amer) 40 L Glucose 57 L Calcium 9.0 Fluid Glucose 107 Fluid Total Protein 2.2 Fluid LDH 115 Impressions: Thoracentesis Ultrasound 04/01/19 00:00 IMPRESSION: SUCCESSFUL THORACENTESIS USING ULTRASOUND GUIDANCE. Chest X-Ray 04/02/19 06:00 IMPRESSION: No postprocedural pneumothorax. Assessment & Plan - Diagnosis (1) Acute on chronic kidney failure Qualifiers: Chronic kidney disease stage: stage 3 (moderate) Is this a current diagnosis for this admission?: Yes Plan: Nonoliguric. Labs shows improving creatinine getting back to baseline. Continue on current guidelines. I will sign out and will see on a as needed basis. (2) Acute respiratory failure with hypoxia Is this a current diagnosis for this admission?: Yes Plan: Improving. Management as per hospitalist. (3) Bilateral pleural effusion Is this a current diagnosis for this admission?: Yes Plan: Status post right thoracentesis. Further management as per hospitalist. (4) Diabetes mellitus Qualifiers: Diabetes mellitus type: other specified (including BALJEET) Is this a current diagnosis for this admission?: Yes Plan: As per hospitalist. (5) Hypotension Qualifiers: Hypotension type: other hypotension type Qualified Code(s): I95.89 - Other hypotension Is this a current diagnosis for this admission?: Yes Plan: Relatively stable with the addition of Midodrin. Continue the same. (6) Physical debility Is this a current diagnosis for this admission?: Yes Plan: Status quo. (7) Primary biliary cirrhosis Is this a current diagnosis for this admission?: Yes Plan: Status quo. End-stage liver disease. Patient taken off transplant list because of recent development of pulmonary hypertension. (8) Anemia Qualifiers: Anemia type: other cause Other causes of anemia: chronic disease, other Qualified Code(s): D63.8 - Anemia in other chronic diseases classified elsewhere Is this a current diagnosis for this admission?: Yes Plan: As per hospitalist. (9) Hypoglycemia Plan: Doing better. Still needs monitoring given her end-stage liver disease.
--- NOTE | 2019-04-03 12:42 | PDOC PROGRESS REPORT ---
Subjective Progress Note for:: 04/03/19 Subjective:: Patient is status post thoracentesis. Chest x-ray done reveals no evidence of pneumothorax. Patient is on 3 L of oxygen and O2 sat is 90% Reason For Visit: ACUTE RENAL FAILURE,PRIMARY BILIARY CHOLANGITIS, Physical Exam Vital Signs: Temp Pulse Resp BP Pulse Ox 97.8 F 69 14 95/38 L 96 04/03/19 07:53 04/03/19 07:53 04/03/19 07:53 04/03/19 07:53 04/03/19 07:53 Intake & Output 04/02/19 04/03/19 04/04/19 06:59 06:59 06:59 Intake Total 2877 696 Output Total 600 1025 Balance 2277 -329 Weight 54.8 kg 56.9 kg General appearance: PRESENT: no acute distress, other - elderly and frail Neck exam: PRESENT: full ROM. ABSENT: JVD Respiratory exam: PRESENT: crackles - R base, decreased breath sounds, rhonchi, unlabored. ABSENT: accessory muscle use, tachypnea Cardiovascular exam: PRESENT: RRR, +S1, +S2 GI/Abdominal exam: PRESENT: soft. ABSENT: tenderness Rectal exam: PRESENT: deferred Neurological exam: PRESENT: alert, oriented to person, oriented to place, oriented to time Results Laboratory Results: 04/03/19 04:07 04/03/19 04:07 04/01/19 04/03/19 04/03/19 08:55 04:07 04:07 WBC 3.1 L RBC 3.00 L Hgb 7.7 L Hct 23.9 L MCV 80 MCH 25.8 L MCHC 32.3 RDW 30.6 H Plt Count 96 L Seg Neutrophils % 54.5 Sodium 139.8 Potassium 4.5 Chloride 104 Carbon Dioxide 24 Anion Gap 12 BUN 68 H Creatinine 1.55 H Est GFR ( Amer) 40 L Glucose 57 L Calcium 9.0 Fluid Glucose 107 Fluid Total Protein 2.2 Fluid LDH 115 Impressions: Thoracentesis Ultrasound 04/01/19 00:00 IMPRESSION: SUCCESSFUL THORACENTESIS USING ULTRASOUND GUIDANCE. Chest X-Ray 04/02/19 06:00 IMPRESSION: No postprocedural pneumothorax. 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 Labs reveiwed, so far benign (5) Diabetes mellitus Is this a current diagnosis for this admission?: Yes Plan: Lantus 18 units twice daily. Monitor Accu-Cheks and adjust medication as needed. Sliding scale coverage. (6) Hypotension Qualifiers: Qualified Code(s): I95.89 - Other hypotension Is this a current diagnosis for this admission?: Yes Plan: Secondary to hepatic cirrhosis with third spacing and likely low intravascular volume. Avoid overdiuresis risking hepatorenal failure. (7) Physical debility Is this a current diagnosis for this admission?: Yes (8) Primary biliary cirrhosis Is this a current diagnosis for this admission?: Yes - Plan Summary Summary: Acute hypoxemic respiratory failure Bilateral pleural effusions Hypotension Primary biliary cirrhosis Acute on chronic kidney disease Diabetes mellitus Anemia of chronic disease Hepatic encephalopathy Back pain Acute debility
--- NOTE | 2019-04-03 21:29 | XCELERA REPORT ---
[address] [address] Transthoracic Echocardiogram Report Name: MAURA CHRIS Age: 68 yrs Gender: Female : 1950 Patient Status: Inpatient Patient Location: [address] [place], [place] [address] Study Date: 04/01/2019 02:11 PM Weight: 124 lb Procedure: A two-dimensional transthoracic echocardiogram with color flow and Doppler was performed. Study Quality: Fair. Reason For Study: Hypoxia / Pulmonary Hypertension History: Hypoxia / Pulmonary Hypertension. Ordering Physician: SCHUYLER COSTA Performed By: Alvina Leiva Interpretation Summary The left ventricle is normal in size. There is normal left ventricular wall thickness. LV EF is 65% Left ventricular systolic function is normal. Doppler measurements suggest normal left ventricular diastolic function The left ventricular wall motion is normal. There is no thrombus. No ASD , VSD ,or PFO seen. The right ventricle is mild to moderately dilated. There is mild right ventricular hypertrophy. The right ventricular systolic function is mild to moderately reduced. The right atrium is mild to moderately dilated. The left atrium is mildly dilated. There is no evidence of mitral valve prolapse. There is no vegetation seen on the mitral valve. There is no mitral valve stenosis. There is a mild amount of mitral regurgitation There is no aortic valvular vegetation. There is no aortic valve stenosis No aortic regurgitation is present. There is no tricuspid stenosis. There is servere pulmonary hypertension by echo RVSP is atleast 67 mm Of Hg , witha RA mean of at least 20. There is no pulmonic valvular stenosis. There is a mild amount of pulmonic regurgitation The aortic root is normal size. The inferior vena cava appeared dilated and did not change with respiration (RAP > 20 mmHg) There is trace pericardial effusion. MMode/2D Measurements & Calculations RVDd: 2.6 cm LVIDd: 4.9 cm FS: 39.2 % Ao root diam: 2.5 cm IVSd: 0.98 cm LVIDs: 3.0 cm EDV(Teich): 112.7 ml LVPWd: 0.99 cm ESV(Teich): 34.4 ml Ao root area: 4.9 cm2 EF(Teich): 69.4 % Doppler Measurements & Calculations MV E max santosh: MV dec slope: Ao V2 max: LV V1 max P.6 cm/sec 145.2 cm/sec 2.8 mmHg MV A max santosh: 442.7 cm/sec2 Ao max PG: LV V1 max: 38.2 cm/sec MV dec time: 0.23 sec 8.4 mmHg 84.3 cm/sec MV E/A: 2.7 PA V2 max: TR max santosh: 81.5 cm/sec 301.2 cm/sec PA max P.7 mmHg TR max P.0 mmHg Left Ventricle The left ventricle is normal in size. There is normal left ventricular wall thickness. LV EF is 65%. Left ventricular systolic function is normal. Doppler measurements suggest normal left ventricular diastolic function. The left ventricular wall motion is normal. There is no thrombus. No ASD , VSD ,or PFO seen. Right Ventricle The right ventricle is mild to moderately dilated. There is mild right ventricular hypertrophy. The right ventricular systolic function is mild to moderately reduced. Atria The right atrium is mild to moderately dilated. The left atrium is mildly dilated. Mitral Valve There is no evidence of mitral valve prolapse. There is no vegetation seen on the mitral valve. There is no mitral valve stenosis. There is a mild amount of mitral regurgitation. Aortic Valve There is no aortic valvular vegetation. There is no aortic valve stenosis. No aortic regurgitation is present. Tricuspid Valve There is no tricuspid stenosis. There is a moderate to severe amount of tricuspid regurgitation. There is servere pulmonary hypertension by echo. RVSP is atleast 67 mm Of Hg , witha RA mean of at least 20. Pulmonic Valve There is no pulmonic valvular stenosis. There is a mild amount of pulmonic regurgitation. Great Vessels The aortic root is normal size. The inferior vena cava appeared dilated and did not change with respiration (RAP > 20 mmHg). Effusions There is trace pericardial effusion. : SCHUYLER COSTA Lakshmi
[2019-04-04] MEDS: HEPARIN SOD (PORCINE) 5,000 UNIT/ML 1 ML VIAL SUBCUT SCH ×3 (05:35→21:54)
[2019-04-04] MEDS: LEVOTHYROXINE SODIUM 0.15 MG TABLET PO SCH (06:09)
[2019-04-04] MEDS: INSULIN LISPRO 100 UNIT/ML 3 ML VIAL SUBCUT SCH ×3 (08:31→17:57)
[2019-04-04 09:47] LABS: ABSOLUTE EOSINOPHILS # (AUTO) 0.1 10^3/uL (0.0-0.6); ABSOLUTE LYMPHOCYTES (AUTO) 0.6 10^3/uL (0.5-4.7); ABSOLUTE MONOCYTES (AUTO) 0.3 10^3/uL (0.1-1.4); ABSOLUTE NEUT (AUTO) 1.6 10^3/uL (1.7-8.2); BASOPHILS % (AUTO) 1.3 % (0-2); HEMATOCRIT 25.1 % (36.0-47.0); HEMOGLOBIN 8.1 g/dL (12.0-15.5); MEAN CORPUSCULAR HEMOGLOBIN 25.9 pg (27.0-33.4); MEAN CORPUSCULAR HGB CONC 32.3 g/dL (32.0-36.0); MEAN CORPUSCULAR VOLUME 80 fl (80-97); RED BLOOD COUNT 3.13 10^6/uL (3.72-5.28); RED CELL DISTRIBUTION WIDTH 30.1 % (11.5-14.0); SEGMENTED NEUTROPHILS % (AUTO) 60.7 % (42-78); TOTAL CELLS COUNTED % (AUTO) 100 %; WHITE BLOOD COUNT 2.7 10^3/uL (4.0-10.5)
[2019-04-04] MEDS: INSULIN GLARGINE,HUM.REC.ANLOG 1,000 UNIT/10 ML VIAL SUBCUT SCH ×2 (09:49→21:55)
[2019-04-04] MEDS: FERROUS SULFATE 325 MG TABLET PO SCH (09:50)
[2019-04-04] MEDS: MIDODRINE HCL 5 MG TABLET PO SCH ×3 (09:50→18:05)
[2019-04-04] MEDS: URSODIOL 300 MG CAPSULE PO SCH ×2 (09:51→21:56)
[2019-04-04] MEDS: LACTULOSE SYRUP 20 GM/30 ML UDCUP PO SCH (09:52)
[2019-04-04 09:55] LABS: BLOOD UREA NITROGEN 59 mg/dL (7-20); CALCIUM 8.9 mg/dL (8.4-10.2); GLUCOSE 312 mg/dL (75-110)
[2019-04-04 09:56] LABS: ANION GAP 13 (5-19); CARBON DIOXIDE 24 mmol/L (22-30); CHLORIDE 102 mmol/L (98-107); POTASSIUM 4.5 mmol/L (3.6-5.0)
[2019-04-04] MEDS: POTASSIUM CHLORIDE 10 MEQ TABLET.ER PO SCH (09:59)
[2019-04-04 10:47] LABS: ANISOCYTOSIS 4+; HYPOCHROMASIA 1+; OVALOCYTES SLIGHT; PLATELET COMMENT DECREASED; POIKILOCYTOSIS SLIGHT; POLYCHROMASIA SLIGHT
[2019-04-04 10:49] LABS: PLATELET COUNT 85 10^3/uL (150-450)
--- NOTE | 2019-04-04 17:26 | PDOC PROGRESS REPORT ---
Subjective Progress Note for:: 04/04/19 Subjective:: Patient is continued to stabilize and improve. She is down to 2 L of oxygen which he appears to be tolerating well Reason For Visit: ACUTE RENAL FAILURE,PRIMARY BILIARY CHOLANGITIS, Physical Exam Vital Signs: Temp Pulse Resp BP Pulse Ox 97.9 F 71 20 113/43 L 90 L 04/04/19 14:54 04/04/19 14:54 04/04/19 14:54 04/04/19 14:54 04/04/19 14:54 Intake & Output 04/03/19 04/04/19 04/05/19 06:59 06:59 06:59 Intake Total 696 Output Total 1025 1000 Balance -329 -1000 Weight 56.9 kg 57.8 kg General appearance: PRESENT: no acute distress, other - Older looking than stated age Head exam: PRESENT: atraumatic Respiratory exam: PRESENT: crackles, rhonchi Cardiovascular exam: PRESENT: RRR, +S1, +S2 GI/Abdominal exam: PRESENT: soft. ABSENT: tenderness Rectal exam: PRESENT: deferred Extremities exam: ABSENT: calf tenderness Neurological exam: PRESENT: alert, awake, oriented to person, oriented to place Results Laboratory Results: 04/04/19 09:16 04/04/19 09:16 04/04/19 04/04/19 09:16 09:16 WBC 2.7 L RBC 3.13 L Hgb 8.1 L Hct 25.1 L MCV 80 MCH 25.9 L MCHC 32.3 RDW 30.1 H Plt Count 85 L Seg Neutrophils % 60.7 Sodium 138.8 Potassium 4.5 Chloride 102 Carbon Dioxide 24 Anion Gap 13 BUN 59 H Creatinine 1.47 H Est GFR ( Amer) 43 L Glucose 312 H Calcium 8.9 Impressions: Thoracentesis Ultrasound 04/01/19 00:00 IMPRESSION: SUCCESSFUL THORACENTESIS USING ULTRASOUND GUIDANCE. Chest X-Ray 04/02/19 06:00 IMPRESSION: No postprocedural pneumothorax. Assessment and Plan - Diagnosis (1) Acute on chronic kidney failure Qualifiers: Chronic kidney disease stage: stage 3 (moderate) Is this a current diagnosis for this admission?: Yes Plan: Her kidney function continues to improve. We will continue to monitor. (2) Acute respiratory failure with hypoxia Is this a current diagnosis for this admission?: Yes Plan: Continue to wean down Oxygen as tolerated. She is down to 2 L of oxygen (3) Back pain Qualifiers: Back pain location: low back pain Chronicity: acute Back pain laterality: bilateral Sciatica presence: without sciatica Qualified Code(s): M54.5 - Low back pain Is this a current diagnosis for this admission?: Yes Plan: Involving bilateral paraspinal muscle regions. K pad. Tylenol as needed. 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 Labs reveiwed, so far remains benign (5) Diabetes mellitus Qualifiers: Diabetes mellitus type: other specified (including BALJEET) Is this a current diagnosis for this admission?: Yes Plan: Lantus 18 units twice daily. Monitor Accu-Cheks and adjust as needed. Sliding scale coverage. (6) Hypotension Qualifiers: Hypotension type: other hypotension type Qualified Code(s): I95.89 - Other hypotension Is this a current diagnosis for this admission?: Yes Plan: Secondary to hepatic cirrhosis with third spacing and likely low intravascular volume. Avoid overdiuresis (7) Physical debility Is this a current diagnosis for this admission?: Yes Plan: Hopefully home on DC (8) Primary biliary cirrhosis Is this a current diagnosis for this admission?: Yes Plan: Chronic liver failure. Has had cirrhosis for over 5 years. Continue with salt restriction, ursodiol. - Plan Summary Summary: Acute hypoxemic respiratory failure Bilateral pleural effusions Hypotension Primary biliary cirrhosis Acute on chronic kidney disease Diabetes mellitus Anemia of chronic disease Hepatic encephalopathy Back pain Acute debility
[2019-04-05] MEDS: HEPARIN SOD (PORCINE) 5,000 UNIT/ML 1 ML VIAL SUBCUT SCH ×3 (05:08→22:13)
[2019-04-05] MEDS: LEVOTHYROXINE SODIUM 0.15 MG TABLET PO SCH (05:16)
[2019-04-05] MEDS: DEXTROSE 50%-WATER 25 GM/50 ML DISP.SYRIN IV PRN (06:30)
[2019-04-05] MEDS: INSULIN LISPRO 100 UNIT/ML 3 ML VIAL SUBCUT SCH ×3 (07:29→17:17)
[2019-04-05] MEDS: INSULIN GLARGINE,HUM.REC.ANLOG 1,000 UNIT/10 ML VIAL SUBCUT SCH ×2 (10:23→22:23)
[2019-04-05] MEDS: LACTULOSE SYRUP 20 GM/30 ML UDCUP PO SCH (10:23)
[2019-04-05] MEDS: URSODIOL 300 MG CAPSULE PO SCH ×2 (10:24→22:23)
[2019-04-05] MEDS: FERROUS SULFATE 325 MG TABLET PO SCH (10:25)
[2019-04-05] MEDS: POTASSIUM CHLORIDE 10 MEQ TABLET.ER PO SCH (10:25)
[2019-04-05] MEDS: MIDODRINE HCL 5 MG TABLET PO SCH ×3 (10:26→17:18)
--- NOTE | 2019-04-05 17:06 | PDOC PROGRESS REPORT ---
Subjective Progress Note for:: 04/05/19 Subjective:: Patient has no new complaints. She is on 2 L of oxygen. Reason For Visit: ACUTE RENAL FAILURE,PRIMARY BILIARY CHOLANGITIS, Physical Exam Vital Signs: Temp Pulse Resp BP Pulse Ox 97.8 F 75 20 117/45 L 98 04/05/19 12:00 04/05/19 12:00 04/05/19 12:00 04/05/19 12:00 04/05/19 12:00 Intake & Output 04/04/19 04/05/19 04/06/19 06:59 06:59 06:59 Intake Total 100 Output Total 1000 900 Balance -1000 -800 Weight 57.8 kg 57.9 kg 57.9 kg General appearance: PRESENT: no acute distress, other - Elderly and frail Head exam: PRESENT: atraumatic Respiratory exam: PRESENT: decreased breath sounds, unlabored. ABSENT: wheezes Cardiovascular exam: PRESENT: RRR, +S1, +S2 GI/Abdominal exam: PRESENT: soft. ABSENT: tenderness Neurological exam: PRESENT: alert, awake, oriented to person, oriented to place, oriented to time Results Laboratory Results: 04/04/19 09:16 04/04/19 09:16 04/01/19 08:55 Pleural Fluid Gram Stain - Final 04/01/19 08:55 Pleural Fluid Body Fluid Culture - Final NO AEROBIC OR ANAEROBIC ORGANISMS RECOVERED Impressions: Thoracentesis Ultrasound 04/01/19 00:00 IMPRESSION: SUCCESSFUL THORACENTESIS USING ULTRASOUND GUIDANCE. Chest X-Ray 04/02/19 06:00 IMPRESSION: No postprocedural pneumothorax. Assessment and Plan - Diagnosis (1) Acute on chronic kidney failure Qualifiers: Chronic kidney disease stage: stage 3 (moderate) Is this a current diagnosis for this admission?: Yes Plan: Her kidney function continues to improve. We will check labs in a.m. (2) Acute respiratory failure with hypoxia Is this a current diagnosis for this admission?: Yes (3) Back pain Qualifiers: Back pain location: low back pain Chronicity: acute Back pain laterality: bilateral Sciatica presence: without sciatica Qualified Code(s): M54.5 - Low back pain Is this a current diagnosis for this admission?: Yes Plan: Involving bilateral paraspinal muscle regions. 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 Labs reveiwed, so far remains benign F/u CXR prn (5) Diabetes mellitus Qualifiers: Diabetes mellitus type: other specified (including BALJEET) Is this a current diagnosis for this admission?: Yes Plan: Lantus adjusted due to hypoglycemis. Monitor Accu-Cheks and adjust as needed. Sliding scale coverage. (6) Hypotension Qualifiers: Hypotension type: other hypotension type Qualified Code(s): I95.89 - Other hypotension Is this a current diagnosis for this admission?: Yes Plan: Secondary to hepatic cirrhosis with third spacing and likely low intravascular volume. Gentle diuresis (7) Physical debility Is this a current diagnosis for this admission?: Yes Plan: Will need Rehab at [place] (8) Primary biliary cirrhosis Is this a current diagnosis for this admission?: Yes Plan: Chronic liver failure. Has had cirrhosis for over 5 years. Continue with salt restriction, ursodiol. - Plan Summary Summary: Acute hypoxemic respiratory failure Bilateral pleural effusions Hypotension Primary biliary cirrhosis Acute on chronic kidney disease Diabetes mellitus Anemia of chronic disease Hepatic encephalopathy Back pain Acute debility
[2019-04-06] MEDS: LEVOTHYROXINE SODIUM 0.15 MG TABLET PO SCH (05:21)
[2019-04-06] MEDS: HEPARIN SOD (PORCINE) 5,000 UNIT/ML 1 ML VIAL SUBCUT SCH ×3 (05:23→22:27)
[2019-04-06 06:14] LABS: ABSOLUTE BASOPHILS # (AUTO) 0.1 10^3/uL (0.0-0.2); ABSOLUTE EOSINOPHILS # (AUTO) 0.2 10^3/uL (0.0-0.6); ABSOLUTE LYMPHOCYTES (AUTO) 0.8 10^3/uL (0.5-4.7); ABSOLUTE MONOCYTES (AUTO) 0.5 10^3/uL (0.1-1.4); ABSOLUTE NEUT (AUTO) 2.1 10^3/uL (1.7-8.2); BASOPHILS % (AUTO) 1.9 % (0-2); EOSINOPHILS % (AUTO) 6.6 % (0-6); HEMATOCRIT 25.8 % (36.0-47.0); HEMOGLOBIN 8.3 g/dL (12.0-15.5); LYMPHOCYTES % (AUTO) 22.4 % (13-45); MEAN CORPUSCULAR HEMOGLOBIN 26.4 pg (27.0-33.4); MEAN CORPUSCULAR HGB CONC 32.2 g/dL (32.0-36.0); MEAN CORPUSCULAR VOLUME 82 fl (80-97); MONOCYTES % (AUTO) 12.8 % (3-13); PLATELET COUNT 116 10^3/uL (150-450); RED BLOOD COUNT 3.15 10^6/uL (3.72-5.28); RED CELL DISTRIBUTION WIDTH 30.5 % (11.5-14.0); SEGMENTED NEUTROPHILS % (AUTO) 56.3 % (42-78); TOTAL CELLS COUNTED % (AUTO) 100 %; WHITE BLOOD COUNT 3.7 10^3/uL (4.0-10.5)
[2019-04-06 06:36] LABS: ANION GAP 10 (5-19); BLOOD UREA NITROGEN 56 mg/dL (7-20); CALCIUM 8.7 mg/dL (8.4-10.2); CARBON DIOXIDE 23 mmol/L (22-30); CHLORIDE 105 mmol/L (98-107); GLUCOSE 194 mg/dL (75-110); POTASSIUM 5.3 mmol/L (3.6-5.0)
[2019-04-06 07:10] LABS: ANISOCYTOSIS 4+; HYPOCHROMASIA 1+; PLATELET COMMENT DECREASED; SCHISTOCYTES SLIGHT
[2019-04-06] MEDS: INSULIN LISPRO 100 UNIT/ML 3 ML VIAL SUBCUT SCH ×3 (07:49→16:37)
--- NOTE | 2019-04-06 10:57 | PDOC PROGRESS REPORT ---
Subjective Progress Note for:: 04/06/19 Subjective:: Patient vomiting this am She is on 2 L of oxygen. Reason For Visit: ACUTE RENAL FAILURE,PRIMARY BILIARY CHOLANGITIS, Physical Exam Vital Signs: Temp Pulse Resp BP Pulse Ox 97.5 F 72 16 106/38 L 95 04/06/19 07:49 04/06/19 07:49 04/06/19 07:49 04/06/19 07:49 04/06/19 07:49 Intake & Output 04/05/19 04/06/19 04/07/19 06:59 06:59 06:59 Intake Total 100 1048 Output Total 900 750 Balance -800 298 Weight 57.9 kg 59.9 kg General appearance: PRESENT: no acute distress, thin, other - ill looking Head exam: PRESENT: atraumatic Mouth exam: PRESENT: dry mucosa Respiratory exam: PRESENT: clear to auscultation josh Cardiovascular exam: PRESENT: RRR, +S1, +S2 GI/Abdominal exam: PRESENT: soft. ABSENT: tenderness Extremities exam: ABSENT: +1 edema, +2 edema Musculoskeletal exam: PRESENT: other - sacral edema Neurological exam: PRESENT: alert, awake, oriented to situation Results Laboratory Results: 04/06/19 04:46 04/06/19 04:46 04/06/19 04/06/19 04:46 04:46 WBC 3.7 L RBC 3.15 L Hgb 8.3 L Hct 25.8 L MCV 82 MCH 26.4 L MCHC 32.2 RDW 30.5 H Plt Count 116 L Seg Neutrophils % 56.3 Sodium 137.6 Potassium 5.3 H Chloride 105 Carbon Dioxide 23 Anion Gap 10 BUN 56 H Creatinine 1.30 H Est GFR ( Amer) 49 L Glucose 194 H Calcium 8.7 04/01/19 08:55 Pleural Fluid Gram Stain - Final 04/01/19 08:55 Pleural Fluid Body Fluid Culture - Final NO AEROBIC OR ANAEROBIC ORGANISMS RECOVERED Impressions: Thoracentesis Ultrasound 04/01/19 00:00 IMPRESSION: SUCCESSFUL THORACENTESIS USING ULTRASOUND GUIDANCE. Chest X-Ray 04/02/19 06:00 IMPRESSION: No postprocedural pneumothorax. Assessment and Plan - Diagnosis (1) Acute on chronic kidney failure Qualifiers: Chronic kidney disease stage: stage 3 (moderate) Is this a current diagnosis for this admission?: Yes Plan: Kidney function continues to improve. Her creatinine is down to 1.3 with a BUN of 56 today. She does have mild hypokalemia. She was on potassium but this has been held. Will recheck in a.m. (2) Acute respiratory failure with hypoxia Is this a current diagnosis for this admission?: Yes Plan: This continues to improve and stabilize. She remains on 2 L of oxygen (3) Back pain Qualifiers: Back pain location: low back pain Chronicity: acute Back pain laterality: bilateral Sciatica presence: without sciatica Qualified Code(s): M54.5 - Low back pain Is this a current diagnosis for this admission?: Yes Plan: Involving bilateral paraspinal muscle regions. 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 Labs reveiwed, so far remains benign F/u CXR prn (5) Diabetes mellitus Qualifiers: Diabetes mellitus type: other specified (including BALJEET) Is this a current diagnosis for this admission?: Yes Plan: Lantus adjusted due to hypoglycemis. Continue to monitor Accu-Cheks and adjust as needed. Sliding scale coverage. (6) Hypotension Qualifiers: Hypotension type: other hypotension type Qualified Code(s): I95.89 - Other hypotension Is this a current diagnosis for this admission?: Yes Plan: Her blood pressure remains borderline. Judicious medications (7) Physical debility Is this a current diagnosis for this admission?: Yes Plan: PT as tolerated (8) Primary biliary cirrhosis Is this a current diagnosis for this admission?: Yes Plan: Chronic liver failure. Has had cirrhosis for over 5 years. Continue with salt restriction, ursodiol. - Plan Summary Summary: Acute hypoxemic respiratory failure Bilateral pleural effusions Hypotension Primary biliary cirrhosis Acute on chronic kidney disease Diabetes mellitus Anemia of chronic disease Hepatic encephalopathy Back pain Acute debility
[2019-04-06] MEDS: INSULIN GLARGINE,HUM.REC.ANLOG 1,000 UNIT/10 ML VIAL SUBCUT SCH ×2 (10:59→22:44)
[2019-04-06] MEDS ORDERED: ONDANSETRON HCL INJ/PF 4 MG/2 ML SDV ONE (11:05)
[2019-04-06] MEDS: ONDANSETRON HCL INJ/PF 4 MG/2 ML SDV IV PRN ×2 (11:06→14:24)
[2019-04-06] MEDS: URSODIOL 300 MG CAPSULE PO SCH ×2 (12:04→22:27)
[2019-04-06] MEDS: MIDODRINE HCL 5 MG TABLET PO SCH ×3 (12:04→17:36)
[2019-04-06] MEDS: FERROUS SULFATE 325 MG TABLET PO SCH (12:04)
[2019-04-06] MEDS: LACTULOSE SYRUP 20 GM/30 ML UDCUP PO SCH ×2 (12:04→13:33)
--- NOTE | 2019-04-06 16:16 | Progress Note ---
Provider Note Provider Note: Patient spouse was very upset due to the lactulose dose being decreased. When patient had come in she had been in acute renal failure with a BUN as high as 9 and a creatinine around 2. Because of these lactulose was decreased. She apparently gets 60 g of lactulose per day prehospitalization and she really had been on 40 g twice daily. All efforts to explain the rationale to him proved to be abortive and he was very upset. I did call the nursing supervisor frame sample and pattern to help and intervene so thus this could be explained better. Patient is seen more lethargic than usual and her ammonia level was elevated. She has had 2 bowel movements so far today. She nunn had 6 bowel movements 2 days ago. Her presumed encephalopathy will have to be balanced against her kidney function which is actually improving. Patient's mental status was actually improved through last night and 1 of the reasons he was upset today was because when he left her last night he said she appeared to be in a better mental status than when he came back this morning and all efforts to explain that things would not have changed within the span of 12 hours due to the ammonia level proved to be abortive. Patient has had 2 bowel movement so far today. We will continue to adjust lactulose dose to reflect need for osmotic diuresis but also keeping in mind her kidney function which is slowly improving. Patient was also noted to be hypokalemic. Her potassium was stopped yesterday. Aldactone is also still on hold. We will recheck her BMP in a.m. and if her kidney function and potassium improved we will put her back on Aldactone although at a lower dose. Patient spouse has requested daily ammonia level and this has been ordered
[2019-04-06] MEDS: RIFAXIMIN 550 MG TABLET PO SCH (22:28)
[2019-04-07] MEDS ORDERED: CHLORPROMAZINE HCL INJ 25 MG/1 ML AMPULE IV PRN (00:21)
[2019-04-07] MEDS ORDERED: PHARMACY COMMUNICATION ORDER MC NR (00:30)
[2019-04-07] MEDS ORDERED: LACTULOSE SYRUP 20 GM/30 ML UDCUP NG SCH (00:30)
[2019-04-07] MEDS ORDERED: MAG HYDROX/AL HYDROX/SIMETH SUSP 30 ML UDCUP NG PRN (01:32)
[2019-04-07] MEDS ORDERED: ACETAMINOPHEN SUSP 160 MG/5 ML ORAL SYRING NG PRN (01:37)
[2019-04-07] MEDS: DEXTROSE 5%-1/2 NORMAL SALINE 1,000 ML IV PRN ×2 (01:41→11:28)
[2019-04-07] MEDS ORDERED: CHLORPROMAZINE HCL INJ 25 MG/1 ML AMPULE ONE (02:08)
--- NOTE | 2019-04-07 02:40 | Progress Note ---
Provider Note Provider Note: Critical care note: 04/06/2019 Critical care start time: 23:02 Critical care issue: Elevated serum ammonia with somnolence and decreased oral intake. Patient was seen at nursing request as the family was very concerned that the patient's oral lactulose had not been restarted and she seemed to be getting worse in terms of somnolence and her oral intake was also significantly worse. Patient was not receiving IV fluids and they were concerned that her kidney failure may also worsen due to decreased oral intake. Patient's record and laboratory values are reviewed and it was noted that her serum ammonia was 285 earlier on 04/06/2019. I discussed various alternatives with the family and it was finally agreed that we would use an NG tube to administer lactulose 40 mg every 8 hours and she would be started on maintenance fluids with D5 half-normal saline. The patient's fluid balance will be monitored closely with intakes and outputs and her nursing staff will observe her closely for any signs of heart failure or anuria. The patient's condition as well as her treatment were discussed with she and her family at great length as they had many questions that they wish to have answered and many alternatives that they wished to suggest for additional consideration. We have agreed that the patient's NG tube can be removed as soon as she is more alert and is more able to take oral medications and fluids without risk of aspiration. On exam patient was noted to have irregular rate and rhythm on auscultation of her heart respirations were unlabored and equal bilaterally with clear breath sounds. Abdomen was noted to be minimally distended with hypoactive bowel sounds, but was noted to be nontender. Extremities showed no clubbing cyanosis or edema. Patient was noted to be somewhat somnolent but did waken easily and had clear mentation for several minutes once aroused before somnolence returned. After extensive discussion and explanation of the plan the orders for implementation were initiated. I will follow-up on the patient's response later this morning or this afternoon. Critical care end time: 04/07/2019 00:31 Total critical care time: 89 minutes
[2019-04-07] MEDS: HEPARIN SOD (PORCINE) 5,000 UNIT/ML 1 ML VIAL SUBCUT SCH ×3 (05:28→21:37)
[2019-04-07 05:41] LABS: ABSOLUTE EOSINOPHILS # (AUTO) 0.2 10^3/uL (0.0-0.6); ABSOLUTE LYMPHOCYTES (AUTO) 0.5 10^3/uL (0.5-4.7); ABSOLUTE MONOCYTES (AUTO) 0.3 10^3/uL (0.1-1.4); ABSOLUTE NEUT (AUTO) 1.3 10^3/uL (1.7-8.2); BASOPHILS % (AUTO) 1.2 % (0-2); EOSINOPHILS % (AUTO) 8.1 % (0-6); HEMATOCRIT 25.7 % (36.0-47.0); HEMOGLOBIN 8.3 g/dL (12.0-15.5); LYMPHOCYTES % (AUTO) 21.6 % (13-45); MEAN CORPUSCULAR HEMOGLOBIN 26.1 pg (27.0-33.4); MEAN CORPUSCULAR HGB CONC 32.1 g/dL (32.0-36.0); MEAN CORPUSCULAR VOLUME 81 fl (80-97); MONOCYTES % (AUTO) 12.8 % (3-13); PLATELET COUNT 104 10^3/uL (150-450); RED BLOOD COUNT 3.16 10^6/uL (3.72-5.28); RED CELL DISTRIBUTION WIDTH 30.2 % (11.5-14.0); SEGMENTED NEUTROPHILS % (AUTO) 56.3 % (42-78); TOTAL CELLS COUNTED % (AUTO) 100 %
[2019-04-07] MEDS ORDERED: LEVOTHYROXINE SODIUM 0.15 MG TABLET NG SCH (06:00)
[2019-04-07 06:06] LABS: ANION GAP 12 (5-19); BLOOD UREA NITROGEN 45 mg/dL (7-20); CALCIUM 8.8 mg/dL (8.4-10.2); CARBON DIOXIDE 22 mmol/L (22-30); CHLORIDE 105 mmol/L (98-107); GLUCOSE 136 mg/dL (75-110); POTASSIUM 4.6 mmol/L (3.6-5.0)
[2019-04-07 06:07] LABS: ANISOCYTOSIS 4+; HYPOCHROMASIA 1+; OVALOCYTES 1+; PLATELET COMMENT DECREASED; POLYCHROMASIA 1+; TEAR DROP CELLS 1+
[2019-04-07 06:09] LABS: WHITE BLOOD COUNT 2.4 10^3/uL (4.0-10.5)
[2019-04-07] MEDS: INSULIN LISPRO 100 UNIT/ML 3 ML VIAL SUBCUT SCH ×3 (08:00→17:57)
--- NOTE | 2019-04-07 08:35 | RADIOLOGY REPORT (SQ) ---
EXAM DESCRIPTION: KUB/ABDOMEN (SINGLE VIEW) COMPLETED DATE/TIME: 04/07/2019 3:05 am REASON FOR STUDY: Check Placement of NG Tube COMPARISON: PA and lateral views of the chest from 04/02/2019 NUMBER OF VIEWS: One view. TECHNIQUE: A single AP supine view of the abdomen was obtained LIMITATIONS: None. FINDINGS: BOWEL GAS PATTERN: No dilated loops of bowel CALCIFICATIONS: No calcifications SOFT TISSUES: No abnormality HARDWARE: The tip and side hole of the enteric tube project past gastroesophageal junction and within the gastric lumen. There are cholecystectomy clips in the right upper quadrant. BONES: No abnormality. OTHER: Mckenzie catheter. IMPRESSION: The tip and side hole of the enteric tube project within the gastric lumen. TECHNICAL DOCUMENTATION: JOB ID: [id number] 2011 [employer]- All Rights Reserved Reading location - IP/workstation name: [email or web address]
[2019-04-07] MEDS: INSULIN GLARGINE,HUM.REC.ANLOG 1,000 UNIT/10 ML VIAL SUBCUT SCH ×2 (09:45→21:40)
[2019-04-07] MEDS: MIDODRINE HCL 5 MG TABLET NG SCH ×2 (09:46→14:33)
[2019-04-07] MEDS: URSODIOL 300 MG CAPSULE PO SCH ×2 (09:46→21:40)
[2019-04-07] MEDS: RIFAXIMIN 550 MG TABLET PO SCH ×2 (09:47→21:40)
[2019-04-07] MEDS ORDERED: SPIRONOLACTONE 25 MG TABLET NG SCH (10:00)
[2019-04-07] MEDS ORDERED: FERROUS SULFATE LIQUID 300 MG/5 ML UDC NG SCH (10:00)
[2019-04-07] MEDS ORDERED: FUROSEMIDE 40 MG TABLET NG SCH (10:00)
[2019-04-07] MEDS ORDERED: ACETAMINOPHEN 325 MG TABLET PO PRN (14:19)
[2019-04-07] MEDS ORDERED: MAG HYDROX/AL HYDROX/SIMETH SUSP 30 ML UDCUP PO PRN (14:30)
--- NOTE | 2019-04-07 17:41 | PDOC PROGRESS REPORT ---
Subjective Progress Note for:: 04/07/19 Subjective:: Patient denies any fever chills or cough. Denies shortness of breath abdominal pain. I was notified by nurse the patient is hypothermic on rectal temperature down to 94. Reason For Visit: ACUTE RENAL FAILURE,PRIMARY BILIARY CHOLANGITIS, Physical Exam Vital Signs: Temp Pulse Resp BP Pulse Ox 97.3 F 80 16 119/49 L 98 04/07/19 03:57 04/07/19 15:12 04/07/19 15:12 04/07/19 15:12 04/07/19 15:12 Intake & Output 04/06/19 04/07/19 04/08/19 06:59 06:59 06:59 Intake Total 9484 109 4416 Output Total 750 825 300 Balance 298 -457 1220 Weight 59.9 kg 58.4 kg General appearance: PRESENT: no acute distress, cooperative Neck exam: ABSENT: JVD Respiratory exam: PRESENT: clear to auscultation josh, unlabored. ABSENT: tachypnea, wheezes Cardiovascular exam: PRESENT: RRR, +S1, +S2. ABSENT: tachycardia GI/Abdominal exam: PRESENT: soft. ABSENT: rebound, rigid, tenderness Neurological exam: PRESENT: alert, awake Results Laboratory Results: 04/07/19 05:26 04/07/19 05:26 04/07/19 04/07/19 04/07/19 05:26 05:26 05:26 WBC 2.4 L D RBC 3.16 L Hgb 8.3 L Hct 25.7 L MCV 81 MCH 26.1 L MCHC 32.1 RDW 30.2 H Plt Count 104 L Seg Neutrophils % 56.3 Sodium 138.8 Potassium 4.6 Chloride 105 Carbon Dioxide 22 Anion Gap 12 BUN 45 H Creatinine 1.28 H Est GFR ( Amer) 50 L Glucose 136 H Calcium 8.8 Ammonia 68.8 H Impressions: Thoracentesis Ultrasound 04/01/19 00:00 IMPRESSION: SUCCESSFUL THORACENTESIS USING ULTRASOUND GUIDANCE. Chest X-Ray 04/02/19 06:00 IMPRESSION: No postprocedural pneumothorax. KUB X-Ray 04/07/19 00:28 IMPRESSION: The tip and side hole of the enteric tube project within the gastric lumen. Assessment and Plan - Diagnosis (1) Hepatic encephalopathy Is this a current diagnosis for this admission?: Yes Plan: Ammonia levels improved. Currently been increased to lactulose 40 mg every 8 hours last night. Gentle hydration to avoid dehydration with lactulose. Mentation seems to have improved. (2) Hypothermia Qualifiers: Encounter type: initial encounter Qualified Code(s): T68.XXXA - Hypothermia, initial encounter Is this a current diagnosis for this admission?: Yes Plan: Noted by staff to be 94 rectal temperature. Currently patient has no complaints and is status quo. However, no check chest x-ray, urinalysis and blood cultures to ensure that this is not resulting from an occult infection. Will empirically give ceftriaxone. (3) Acute respiratory failure with hypoxia Is this a current diagnosis for this admission?: Yes Plan: This continues to improve and stabilize since thoracentesis. 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 Judicious diuresis. (6) Primary biliary cirrhosis Is this a current diagnosis for this admission?: Yes Plan: Chronic liver failure. Has had cirrhosis for over 5 years. Continue with salt restriction, ursodiol. (7) Acute on chronic kidney failure Qualifiers: Chronic kidney disease stage: stage 3 (moderate) Is this a current diagnosis for this admission?: Yes Plan: Kidney function continues to improve. Hyperkalemia improved today. Continue to monitor BMP especially while on Aldactone. (8) Diabetes mellitus Qualifiers: Diabetes mellitus type: other specified (including BALJEET) Is this a current diagnosis for this admission?: Yes Plan: Continue current Lantus dose and adjust as needed. Sliding scale coverage. (9) Anemia Qualifiers: Anemia type: other cause Other causes of anemia: chronic disease, other Qualified Code(s): D63.8 - Anemia in other chronic diseases classified elsewhere Is this a current diagnosis for this admission?: Yes (10) Back pain Qualifiers: Back pain location: low back pain Chronicity: acute Back pain laterality: bilateral Sciatica presence: without sciatica Qualified Code(s): M54.5 - Low back pain Is this a current diagnosis for this admission?: Yes (11) Physical debility Is this a current diagnosis for this admission?: Yes - Time Time Spent with patient: 25-34 minutes
[2019-04-07] MEDS: CEFTRIAXONE 1 GM/D5W RTU 1 GM/50 ML RTUPB IV SCH (18:03)
[2019-04-07] MEDS: FUROSEMIDE 20 MG TABLET PO SCH (18:03)
[2019-04-07] MEDS: SPIRONOLACTONE 25 MG TABLET PO SCH (18:03)
[2019-04-07] MEDS: MIDODRINE HCL 5 MG TABLET PO SCH (18:03)
--- NOTE | 2019-04-07 18:16 | RADIOLOGY REPORT (SQ) ---
EXAM DESCRIPTION: CHEST 2 VIEWS COMPLETED DATE/TIME: 04/07/2019 5:49 pm REASON FOR STUDY: hypothermia. r/o infectious source COMPARISON: 04/02/2019 TECHNIQUE: Frontal and lateral radiographic views of the chest acquired. NUMBER OF VIEWS: Two view. LIMITATIONS: None. FINDINGS: LUNGS AND PLEURA: No pneumothorax. Increased bilateral basilar airspace disease and pleur al effusions. MEDIASTINUM AND HILAR STRUCTURES: Stable. HEART AND VASCULAR STRUCTURES: Stable. BONES: No acute findings. HARDWARE: None in the chest. OTHER: No other significant finding. IMPRESSION: Increased bilateral basilar airspace disease and pleural effusions. TECHNICAL DOCUMENTATION: JOB ID: [id number] [place]-72 2010 [employer]- All Rights Reserved Reading location - IP/workstation name: [email or web address]
[2019-04-07] MEDS: LACTULOSE SYRUP 20 GM/30 ML UDCUP PO SCH (21:40)
[2019-04-08 00:55] LABS: AMORPHOUS SEDIMENT,URINE TRACE /HPF; APPEARANCE,URINE CLOUDY; BILIRUBIN,URINE NEGATIVE (NEGATIVE); COLOR,URINE AMBER; GLUCOSE, URINE 50 mg/dL (NEGATIVE); KETONES,URINE NEGATIVE (NEGATIVE); LEUKOCYTE ESTERASE,URINE MODERATE (NEGATIVE); NITRITE,URINE NEGATIVE (NEGATIVE); PROTEIN,URINE NEGATIVE (NEGATIVE)
[2019-04-08] MEDS: DEXTROSE 5%-1/2 NORMAL SALINE 1,000 ML IV PRN (01:13)
[2019-04-08] MEDS: LEVOTHYROXINE SODIUM 0.15 MG TABLET PO SCH (05:39)
[2019-04-08] MEDS: LACTULOSE SYRUP 20 GM/30 ML UDCUP PO SCH ×3 (05:39→21:53)
[2019-04-08] MEDS: HEPARIN SOD (PORCINE) 5,000 UNIT/ML 1 ML VIAL SUBCUT SCH ×3 (05:39→21:53)
[2019-04-08 05:49] LABS: HEMATOCRIT 23.6 % (36.0-47.0); MEAN CORPUSCULAR HEMOGLOBIN 26.5 pg (27.0-33.4); MEAN CORPUSCULAR HGB CONC 32.4 g/dL (32.0-36.0); MEAN CORPUSCULAR VOLUME 82 fl (80-97); PLATELET COUNT 103 10^3/uL (150-450); RED BLOOD COUNT 2.88 10^6/uL (3.72-5.28); RED CELL DISTRIBUTION WIDTH 30.1 % (11.5-14.0); WHITE BLOOD COUNT 2.6 10^3/uL (4.0-10.5)
[2019-04-08 06:02] LABS: HEMOGLOBIN 7.6 g/dL (12.0-15.5)
[2019-04-08 06:25] LABS: ALKALINE PHOSPHATASE 93 U/L (38-126); ANION GAP 9 (5-19); ASPARTATE AMINO TRANSFERASE 21 U/L (14-36); BILIRUBIN,DIRECT 1.9 mg/dL (0.0-0.4); BILIRUBIN,TOTAL 2.9 mg/dL (0.2-1.3); BLOOD UREA NITROGEN 36 mg/dL (7-20); CALCIUM 8.5 mg/dL (8.4-10.2); CARBON DIOXIDE 23 mmol/L (22-30); CHLORIDE 103 mmol/L (98-107); GLUCOSE 279 mg/dL (75-110); POTASSIUM 4.4 mmol/L (3.6-5.0); TOTAL PROTEIN 6.4 g/dL (6.3-8.2)
[2019-04-08] MEDS: INSULIN LISPRO 100 UNIT/ML 3 ML VIAL SUBCUT SCH ×3 (07:59→16:55)
[2019-04-08] MEDS ORDERED: CHLORPROMAZINE HCL INJ 25 MG/1 ML AMPULE IV PRN (08:40)
--- NOTE | 2019-04-08 11:11 | RADIOLOGY REPORT (SQ) ---
EXAM DESCRIPTION: CT HEAD WITHOUT COMPLETED DATE/TIME: 04/08/2019 11:00 am REASON FOR STUDY: encephalopathy COMPARISON: 07/14/2018. TECHNIQUE: Axial images acquired through the brain without intravenous contrast. Images reviewed wi th bone, brain and subdural windows. Additional sagittal and coronal reconstructions were generated. Images stored on PACS. All CT scanners at this facility use dose modulation, iterative reconstruction, and/or weight based d osing when appropriate to reduce radiation dose to as low as reasonably achievable (ALARA). [facility]: Dose Right [facility]: CareDose [facility]: Dose Right [facility]: Teradose 4D [facility]: Markit RADIATION DOSE: CT Rad equipment meets quality standard of care and radiation dose reduction techniq ues were employed. CTDIvol: 48.6 mGy. DLP: 856 mGy-cm. mGy. LIMITATIONS: None. FINDINGS: VENTRICLES: Normal size and contour. CEREBRUM: No masses. No hemorrhage. No midline shift. No evidence for acute infarction. Normal gra y/white matter differentiation. No areas of low density in the white matter. CEREBELLUM: No masses. No hemorrhage. No alteration of density. No evidence for acute infarction. EXTRAAXIAL SPACES: No fluid collections. No masses. ORBITS AND GLOBE: No intra- or extraconal masses. Normal contour of globe without masses. CALVARIUM: No fracture. PARANASAL SINUSES: Chronic soft tissue in the right maxillary sinus. SOFT TISSUES: No mass or hematoma. OTHER: No other significant finding. IMPRESSION: NORMAL BRAIN CT WITHOUT CONTRAST. CHRONIC RIGHT MAXILLARY SINUS DISEASE. EVIDENCE OF ACUTE STROKE: NO. COMMENT: Quality ID # [id number]: Final reports with documentation of one or more dose reduction techniques (e.g., Automated exposure control, adjustment of the mA and/or kV according to patient size, use of iterative reconstruction technique) TECHNICAL DOCUMENTATION: JOB ID: [id number] 2010 [employer]- All Rights Reserved Reading location - IP/workstation name: [email or web address]
--- NOTE | 2019-04-08 11:13 | RADIOLOGY REPORT (SQ) ---
EXAM DESCRIPTION: CT CHEST WITHOUT COMPLETED DATE/TIME: 04/08/2019 11:00 am REASON FOR STUDY: SOB COMPARISON: Chest x-ray dated 04/07/2019. Chest CT dated 09/12/2018. TECHNIQUE: CT scan performed of the chest without intravenous contrast. Images reviewed with lung, soft tissue and bone windows. Reconstructed coronal and sagittal MPR images reviewed. All images st ored on PACS. All CT scanners at this facility use dose modulation, iterative reconstruction, and/or weight based d osing when appropriate to reduce radiation dose to as low as reasonably achievable (ALARA). [facility]: Dose Right [facility]: CareDose [facility]: Dose Right [facility]: Teradose 4D [facility]: Crowdcast RADIATION DOSE: CT Rad equipment meets quality standard of care and radiation dose reduction techniq ues were employed. CTDIvol: 6.4 mGy. DLP: 202 mGy-cm. mGy. LIMITATIONS: No technical limitations. FINDINGS: LUNGS AND PLEURA: Large bilateral pleural effusions with compressive atelectasis in the anand ng bases. HILAR AND MEDIASTINAL STRUCTURES: No identified masses or abnormal nodes. No obvious aneurysm. HEART AND VASCULAR STRUCTURES: No aneurysm. Cardiomegaly. No pericardial effusion. UPPER ABDOMEN: No significant findings. Limited exam. THYROID AND OTHER SOFT TISSUES: No masses. No adenopathy. BONES: No significant finding. HARDWARE: None in the chest. OTHER: No other significant findings. IMPRESSION: CARDIOMEGALY. LARGE BILATERAL PLEURAL EFFUSIONS WITH COMPRESSIVE ATELECTASIS IN THE ANUEL G BASES. TECHNICAL DOCUMENTATION: JOB ID: [id number] Quality ID # [id number]: Final reports with documentation of one or more dose reduction techniques (e.g., Au tomated exposure control, adjustment of the mA and/or kV according to patient size, use of iterative reconstruction technique) 2010 [employer]- All Rights Reserved Reading location - IP/workstation name: [email or web address]
[2019-04-08 11:36] LABS: ARTERIAL BLOOD BASE EXCESS -5.3 mmol/L; ARTERIAL BLOOD H2CO3 1.11 mmol/L (1.05-1.35); ARTERIAL BLOOD HCO3 19.9 mmol/L (20-24); ARTERIAL BLOOD O2 SATURATION 95.5 % (94-98); ARTERIAL BLOOD PH 7.35 (7.35-7.45)
[2019-04-08 11:37] LABS: ARTERIAL BLOOD FIO2 3L
[2019-04-08] MEDS: MIDODRINE HCL 5 MG TABLET PO SCH ×4 (11:46→17:27)
[2019-04-08] MEDS: URSODIOL 300 MG CAPSULE PO SCH ×3 (11:46→21:53)
[2019-04-08] MEDS: FUROSEMIDE 20 MG TABLET PO SCH ×3 (11:46→17:28)
[2019-04-08] MEDS: SPIRONOLACTONE 25 MG TABLET PO SCH ×3 (11:46→17:28)
[2019-04-08] MEDS: FERROUS SULFATE 325 MG TABLET PO SCH ×2 (11:46→12:10)
[2019-04-08] MEDS: RIFAXIMIN 550 MG TABLET PO SCH ×3 (11:46→21:53)
[2019-04-08] MEDS: CEFTRIAXONE 1 GM/D5W RTU 1 GM/50 ML RTUPB IV SCH (17:28)
--- NOTE | 2019-04-08 19:15 | PDOC PROGRESS REPORT ---
Subjective Progress Note for:: 04/08/19 Subjective:: Patient had an episode this afternoon where she became very confused and very drowsy. At this time she was still able to get awoken but was clearly very lethargic and drifting back off into sleep. I evaluated patient at bedside with nurse. Patient's vital signs at that time were stable. Blood glucose was measured which was 250 at that time. Examination showed no evidence of neurological focal deficit. We took patient down for a head CT which was negative. Chest CT was performed as patient was tachypneic. Chest CT revealed bilateral pleural effusions which have since reaccumulated with compressive atelectasis. Patient was placed briefly on a BiPAP. Blood gas was unimpressive for any respiratory acidosis. Patient's lethargy and confusion resolved after just about an hour on the BiPAP. Have just reevaluated patient at this time and patient is wide awake and talking fully oriented. She has no complaints and does not show any evidence of confusion at this time. Reason For Visit: ACUTE RENAL FAILURE,PRIMARY BILIARY CHOLANGITIS, Physical Exam Vital Signs: Temp Pulse Resp BP Pulse Ox 97.4 F 85 15 101/47 L 95 04/08/19 15:22 04/08/19 15:22 04/08/19 15:22 04/08/19 15:22 04/08/19 15:22 Intake & Output 04/07/19 04/08/19 04/09/19 06:59 06:59 06:59 Intake Total 368 2660 Output Total 825 300 Balance -457 2360 Weight 58.4 kg 61 kg General appearance: PRESENT: no acute distress, cooperative Neck exam: ABSENT: JVD Respiratory exam: PRESENT: clear to auscultation josh, decreased breath sounds - Lung bases, tachypnea, unlabored. ABSENT: symmetrical, wheezes Cardiovascular exam: PRESENT: RRR, +S1, +S2. ABSENT: tachycardia GI/Abdominal exam: PRESENT: ascites, normal bowel sounds, soft. ABSENT: rebound, rigid, tenderness Neurological exam: PRESENT: alert, awake, oriented to person, oriented to place, oriented to time Results Laboratory Results: 04/08/19 05:33 04/08/19 05:33 04/07/19 04/08/19 04/08/19 21:35 05:33 05:33 WBC 2.6 L RBC 2.88 L Hgb 7.6 L Hct 23.6 L MCV 82 MCH 26.5 L MCHC 32.4 RDW 30.1 H Plt Count 103 L Carbonic Acid HCO3/H2CO3 Ratio ABG pH ABG pCO2 ABG pO2 ABG HCO3 ABG O2 Saturation ABG Base Excess FiO2 Sodium 134.9 L Potassium 4.4 Chloride 103 Carbon Dioxide 23 Anion Gap 9 BUN 36 H Creatinine 1.16 Est GFR ( Amer) 56 L Glucose 279 H Calcium 8.5 Total Bilirubin 2.9 H AST 21 Alkaline Phosphatase 93 Ammonia Total Protein 6.4 Albumin 3.0 L Urine Color [place] Urine Appearance CLOUDY Urine pH 5.0 Ur Specific [place] 1.010 Urine Protein NEGATIVE Urine Glucose (UA) 50 H Urine Ketones NEGATIVE Urine Blood MODERATE H Urine Nitrite NEGATIVE Ur Leukocyte Esterase MODERATE H Urine WBC (Auto) 10 Urine RBC (Auto) 11 04/08/19 04/08/19 05:33 11:20 WBC RBC Hgb Hct MCV MCH MCHC RDW Plt Count Carbonic Acid 1.11 HCO3/H2CO3 Ratio 17:1 ABG pH 7.35 ABG pCO2 37.0 ABG pO2 81.0 ABG HCO3 19.9 L ABG O2 Saturation 95.5 ABG Base Excess -5.3 FiO2 3L Sodium Potassium Chloride Carbon Dioxide Anion Gap BUN Creatinine Est GFR ( Amer) Glucose Calcium Total Bilirubin AST Alkaline Phosphatase Ammonia 47.7 H Total Protein Albumin Urine Color Urine Appearance Urine pH Ur Specific [place] Urine Protein Urine Glucose (UA) Urine Ketones Urine Blood Urine Nitrite Ur Leukocyte Esterase Urine WBC (Auto) Urine RBC (Auto) Impressions: Thoracentesis Ultrasound 04/01/19 00:00 IMPRESSION: SUCCESSFUL THORACENTESIS USING ULTRASOUND GUIDANCE. Chest X-Ray 04/07/19 00:00 IMPRESSION: Increased bilateral basilar airspace disease and pleural effusions. KUB X-Ray 04/07/19 00:28 IMPRESSION: The tip and side hole of the enteric tube project within the gastric lumen. Chest CT 04/08/19 00:00 IMPRESSION: CARDIOMEGALY. LARGE BILATERAL PLEURAL EFFUSIONS WITH COMPRESSIVE ATELECTASIS IN THE LUNG BASES. Head CT 04/08/19 00:00 IMPRESSION: NORMAL BRAIN CT WITHOUT CONTRAST. CHRONIC RIGHT MAXILLARY SINUS DISEASE. EVIDENCE OF ACUTE STROKE: NO. Assessment and Plan - Diagnosis (1) Acute metabolic encephalopathy Is this a current diagnosis for this admission?: Yes Plan: Patient seems to be having episodes of transient changes in mental status. Had on the one today to find with lethargy. Head CT was negative. Blood gas showed no significant hypercapnia. This was likely not from hepatic encephalopathy especially at some point he has been much resolving at this point. JOHNATHON be much resolving at this. As well. Suspecting possibly due to delirium. If this persists may need to get MRI of the brain to further evaluate. (2) Hepatic encephalopathy Is this a current diagnosis for this admission?: Yes Plan: Ammonia levels improved almost back to normal limits at this point and as such does not account for patient's change in mental status today. Continue lactulose 40 mg every 8 hours and rifamixin (3) Hypothermia Qualifiers: Encounter type: initial encounter Qualified Code(s): T68.XXXA - Hypothermia, initial encounter Is this a current diagnosis for this admission?: Yes Plan: Resolved. Check a.m. cortisol. (4) Acute respiratory failure with hypoxia Is this a current diagnosis for this admission?: Yes Plan: Secondary to pleural effusions with pulmonary hypertension. This continues to improve and stabilize since thoracentesis. 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 Check abdominal ultrasound to quantify ascites. I will have pulmonology evaluate patient (6) Hypotension Qualifiers: Hypotension type: other hypotension type Qualified Code(s): I95.89 - Other hypotension Is this a current diagnosis for this admission?: Yes Plan: Her blood pressure remains improved on Middaugh drain. Cautious diuresis. (7) Urinary tract infection Is this a current diagnosis for this admission?: Yes Plan: Suspected. Urinalysis is fairly positive. Follow-up urine cultures. Ceftriaxone in the meantime. (8) Primary biliary cirrhosis Is this a current diagnosis for this admission?: Yes Plan: Chronic liver failure. Has had cirrhosis for over 5 years. Continue with salt restriction, ursodiol. (9) Acute on chronic kidney failure Qualifiers: Chronic kidney disease stage: stage 3 (moderate) Is this a current diagnosis for this admission?: Yes Plan: Kidney function continues to improve. IV fluids stopped today. Cautious diuresis. (10) Diabetes mellitus Qualifiers: Diabetes mellitus type: other specified (including BALJEET) Is this a current diagnosis for this admission?: Yes Plan: Lantus dose increased today given uncontrolled hyperglycemia.. Sliding scale coverage. (11) Anemia Qualifiers: Anemia type: other cause Other causes of anemia: chronic disease, other Qualified Code(s): D63.8 - Anemia in other chronic diseases classified elsewhere Is this a current diagnosis for this admission?: Yes (12) Back pain Qualifiers: Back pain location: low back pain Chronicity: acute Back pain laterality: bilateral Sciatica presence: without sciatica Qualified Code(s): M54.5 - Low back pain Is this a current diagnosis for this admission?: Yes (13) Physical debility Is this a current diagnosis for this admission?: Yes - Time Time Spent with patient: 35 or more minutes
[2019-04-08] MEDS: INSULIN GLARGINE,HUM.REC.ANLOG 1,000 UNIT/10 ML VIAL SUBCUT SCH (21:53)
[2019-04-09 05:26] LABS: HEMATOCRIT 25.2 % (36.0-47.0); HEMOGLOBIN 8.1 g/dL (12.0-15.5); MEAN CORPUSCULAR HEMOGLOBIN 26.4 pg (27.0-33.4); MEAN CORPUSCULAR VOLUME 83 fl (80-97); PLATELET COUNT 103 10^3/uL (150-450); RED BLOOD COUNT 3.05 10^6/uL (3.72-5.28); RED CELL DISTRIBUTION WIDTH 29.8 % (11.5-14.0); WHITE BLOOD COUNT 3.9 10^3/uL (4.0-10.5)
[2019-04-09] MEDS: LEVOTHYROXINE SODIUM 0.15 MG TABLET PO SCH (05:49)
[2019-04-09] MEDS: LACTULOSE SYRUP 20 GM/30 ML UDCUP PO SCH ×3 (05:49→21:49)
[2019-04-09 05:56] LABS: ALBUMIN 3.1 g/dL (3.5-5.0); ALKALINE PHOSPHATASE 100 U/L (38-126); ANION GAP 9 (5-19); ASPARTATE AMINO TRANSFERASE 21 U/L (14-36); BILIRUBIN,DIRECT 1.9 mg/dL (0.0-0.4); BILIRUBIN,TOTAL 2.9 mg/dL (0.2-1.3); BLOOD UREA NITROGEN 33 mg/dL (7-20); CALCIUM 8.6 mg/dL (8.4-10.2); CARBON DIOXIDE 22 mmol/L (22-30); CHLORIDE 105 mmol/L (98-107); GLUCOSE 229 mg/dL (75-110); POTASSIUM 4.2 mmol/L (3.6-5.0); TOTAL PROTEIN 6.5 g/dL (6.3-8.2)
[2019-04-09] MEDS: HEPARIN SOD (PORCINE) 5,000 UNIT/ML 1 ML VIAL SUBCUT SCH ×3 (06:51→21:50)
[2019-04-09] MEDS: INSULIN LISPRO 100 UNIT/ML 3 ML VIAL SUBCUT SCH ×6 (07:54→16:52)
--- NOTE | 2019-04-09 08:28 | RADIOLOGY REPORT (SQ) ---
EXAM DESCRIPTION: U/S ABDOMEN COMPLETE W/DOPPLER COMPLETED DATE/TIME: 04/09/2019 6:06 am REASON FOR STUDY: ascites, cirrhosis, portal htn COMPARISON: 03/14/2019 TECHNIQUE: Dynamic and static grayscale images acquired of the abdomen and recorded on PACS. Additio nal selected color Doppler and spectral images recorded. Note: Study does not meet criteria for complete doppler/duplex scan LIMITATIONS: None. FINDINGS: PANCREAS: No masses. Visualized pancreatic duct normal caliber. LIVER: Increased echogenicity. Visualized TIPS is patent. 2.6 x 1.9 x 2.0 cm simple appearing cyst. LIVER VASCULATURE: Antegrade flow within the portal vein. Tips patent. GALLBLADDER: Surgically absent. ULTRASOUND-DETECTED GAONA'S SIGN: Not applicable. INTRAHEPATIC DUCTS AND COMMON DUCT: CBD and intrahepatic ducts normal caliber. No filling defects. INFERIOR VENA CAVA: Normal flow. AORTA: No aneurysm. RIGHT KIDNEY: Asymmetrically small measuring 9.2 cm. Poorly visualized secondary to bowel gas. No hydronephrosis. LEFT KIDNEY: Normal in size measuring 12.7 cm. Normal echogenicity. No solid or suspicious masses . No hydronephrosis. No calcifications. SPLEEN: Enlarged measuring 17.1 cm. No focal lesions. PERITONEAL AND PLEURAL SPACES: Small volume ascites. Moderate bilateral pleural effusions, right gre ater than left. OTHER: Decompressed stomach with wall thickening. IMPRESSION: 1. Patent TIPS. Trace ascites. 2. Splenomegaly measuring 17 cm. 3. Moderate bilateral pleural effusions, right greater than left. 4. Decompressed stomach with thickened avendano, possibly secondary to decompressed state or gastritis. TECHNICAL DOCUMENTATION: JOB ID: [id number] 2010 [employer]- All Rights Reserved Reading location - IP/workstation name: [email or web address]
[2019-04-09] MEDS: SPIRONOLACTONE 25 MG TABLET PO SCH ×2 (10:37→17:41)
[2019-04-09] MEDS: FERROUS SULFATE 325 MG TABLET PO SCH (10:37)
[2019-04-09] MEDS: FUROSEMIDE INJ/PF 20 MG/2 ML SDV IV SCH ×2 (10:37→17:41)
[2019-04-09] MEDS: INSULIN GLARGINE,HUM.REC.ANLOG 1,000 UNIT/10 ML VIAL SUBCUT SCH ×2 (10:38→21:50)
[2019-04-09] MEDS: MIDODRINE HCL 5 MG TABLET PO SCH ×3 (10:38→17:42)
[2019-04-09] MEDS: URSODIOL 300 MG CAPSULE PO SCH ×2 (10:39→21:49)
[2019-04-09] MEDS: RIFAXIMIN 550 MG TABLET PO SCH ×2 (10:39→21:49)
--- NOTE | 2019-04-09 14:45 | PDOC PROGRESS REPORT ---
Subjective Progress Note for:: 04/09/19 Subjective:: Patient at this time currently states that she is breathing fine. She is alert and talking today. Discussed with patient and her who says that at [facility] patient was seen by service car operator Dr. Rodarte. Reason For Visit: ACUTE RENAL FAILURE,PRIMARY BILIARY CHOLANGITIS, Physical Exam Vital Signs: Temp Pulse Resp BP Pulse Ox 97.7 F 85 15 116/49 L 94 04/09/19 10:57 04/09/19 10:57 04/09/19 10:57 04/09/19 10:57 04/09/19 10:57 Intake & Output 04/08/19 04/09/19 04/10/19 06:59 06:59 06:59 Intake Total 2660 170 Output Total 300 Balance 2360 170 Weight 61 kg 60.7 kg 60.7 kg General appearance: PRESENT: no acute distress, cooperative Neck exam: ABSENT: JVD Respiratory exam: PRESENT: clear to auscultation josh, decreased breath sounds - Decreased breath sounds bibasilar, unlabored. ABSENT: tachypnea, wheezes Cardiovascular exam: PRESENT: RRR, +S1, +S2. ABSENT: tachycardia GI/Abdominal exam: PRESENT: normal bowel sounds, soft. ABSENT: rebound, rigid, tenderness Neurological exam: PRESENT: alert, awake, oriented to person, oriented to place, oriented to time Results Laboratory Results: 04/09/19 04:49 04/09/19 04:49 04/09/19 04/09/19 04/09/19 04:49 04:49 04:49 WBC 3.9 L RBC 3.05 L Hgb 8.1 L Hct 25.2 L MCV 83 MCH 26.4 L MCHC 32.0 RDW 29.8 H Plt Count 103 L Sodium 136.0 L Potassium 4.2 Chloride 105 Carbon Dioxide 22 Anion Gap 9 BUN 33 H Creatinine 1.11 Est GFR ( Amer) 59 L Glucose 229 H Calcium 8.6 Total Bilirubin 2.9 H AST 21 Alkaline Phosphatase 100 Ammonia 34.4 H Total Protein 6.5 Albumin 3.1 L Impressions: Thoracentesis Ultrasound 04/01/19 00:00 IMPRESSION: SUCCESSFUL THORACENTESIS USING ULTRASOUND GUIDANCE. Chest X-Ray 04/07/19 00:00 IMPRESSION: Increased bilateral basilar airspace disease and pleural effusions. KUB X-Ray 04/07/19 00:28 IMPRESSION: The tip and side hole of the enteric tube project within the gastric lumen. Chest CT 04/08/19 00:00 IMPRESSION: CARDIOMEGALY. LARGE BILATERAL PLEURAL EFFUSIONS WITH COMPRESSIVE ATELECTASIS IN THE LUNG BASES. Head CT 04/08/19 00:00 IMPRESSION: NORMAL BRAIN CT WITHOUT CONTRAST. CHRONIC RIGHT MAXILLARY SINUS DISEASE. EVIDENCE OF ACUTE STROKE: NO. Abdomen Ultrasound 04/09/19 00:00 IMPRESSION: 1. Patent TIPS. Trace ascites. 2. Splenomegaly measuring 17 cm. 3. Moderate bilateral pleural effusions, right greater than left. 4. Decompressed stomach with thickened avendano, possibly secondary to decompresse d state or gastritis. Assessment and Plan - Diagnosis (1) 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 hypertension Is this a current diagnosis for this admission?: Yes Plan: Severe pulmonary hypertension noted on echo echocardiogram on 04/01/2019 showed LVEF of 65% with normal LV systolic and d iastolic function, no significant abnormalities with AV and MV, but RVSP of 67 mmHg, moderate RV dilation and RV systolic dysfunction Had phone consultation with Dr. Byrnes [service car operator at [facility]] and Dr. Rodarte who is the service car operator pulmonary hypertension specialist who evaluated patient at [facility]. They informed me that patient's hemodynamics of RHC at [facility] was RV pressure 61/18, MPAP 40, wedge pressure 23. No vasoreactivity test was done. Dr. Rodarte states that he believes his pulmonary hypertension was secondary to portopulmonary hypertension and as such there was no indication for vasoreactivity testing or advanced therapy for treatment of pulmonary hypertension. He recommended continuing diuresis with Lasix and increasing dose of diuretics and consideration of the potential that effusions may be caused by hepatic hydrothorax even despite only trace ascites. Continue with IV Lasix 20 mg twice a day. Cardiology consulted (2) Acute metabolic encephalopathy Is this a current diagnosis for this admission?: Yes Plan: Metabolic encephalopathy currently resolved. Head CT is negative. Blood gas showed no significant hypercapnia. Hepatic encephalopathy unlikely given downtrending ammonia. JOHNATHON resolving at this. There is possibility of delirium. At this time, will hold off on further brain imaging. 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 Planning for repeat therapeutic thoracentesis tomorrow (4) Hepatic encephalopathy Is this a current diagnosis for this admission?: Yes Plan: Ammonia levels improved almost back to normal limits at this point and as such does not account for patient's change in mental status today. Continue lactulose 40 mg every 8 hours and rifamixin (5) Acute respiratory failure with hypoxia Is this a current diagnosis for this admission?: Yes Plan: Secondary to pleural effusions with pulmonary hypertension. This continues to improve and stabilize since thoracentesis. She remains on 2-3 L of oxygen (6) Hypotension Qualifiers: Hypotension type: other hypotension type Qualified Code(s): I95.89 - Other hypotension Is this a current diagnosis for this admission?: Yes Plan: Her blood pressure remains improved on Midodrine. Cautious diuresis. (7) Urinary tract infection Qualifiers: Urinary tract infection type: acute cystitis Hematuria presence: with hematuria Qualified Code(s): N30.01 - Acute cystitis with hematuria Is this a current diagnosis for this admission?: Yes Plan: Suspected. Urinalysis is fairly positive. Follow-up urine cultures. Ceftriaxone in the meantime. (8) Primary biliary cirrhosis Is this a current diagnosis for this admission?: Yes (9) Acute on chronic kidney failure Qualifiers: Chronic kidney disease stage: stage 3 (moderate) Is this a current diagnosis for this admission?: Yes (10) Diabetes mellitus Qualifiers: Diabetes mellitus type: other specified (including BALJEET) Is this a current diagnosis for this admission?: Yes (11) Anemia Qualifiers: Anemia type: other cause Other causes of anemia: chronic disease, other Qualified Code(s): D63.8 - Anemia in other chronic diseases classified elsewhere Is this a current diagnosis for this admission?: Yes (12) Back pain Qualifiers: Back pain location: low back pain Chronicity: acute Back pain laterality: bilateral Sciatica presence: without sciatica Qualified Code(s): M54.5 - Low back pain Is this a current diagnosis for this admission?: Yes (13) Physical debility Is this a current diagnosis for this admission?: Yes - Time Time Spent with patient: 15-24 minutes
--- NOTE | 2019-04-09 17:05 | PDOC CONSULTATION ---
Consultation Consult Date: 04/09/19 Attending physician:: SCHUYLER COSTA Provider Consulted: ZAIRE GUPTA Consult reason:: Pulmonary hypertension History of Present Illness Admission Date/PCP: 03/27/19 21:07 RUTH SHELDON Patient complains of: Weakness and dyspnea History of Present Illness: MAURA CHRIS is a 69 year old female With the following active problems 1. Primary biliary cirrhosis 2. Hepatic encephalopathy Patient with diagnosis of primary biliary cirrhosis who is had a TIPS procedure. She has had hepatic encephalopathy as well. Overall she is done poorly lately. Recent evaluation at [facility] for possible liver transplant for primary biliary cirrhosis. mentions that patient underwent right heart cath eterization. Data from that study is not available to me presently. Echocardiogram performed at [facility], [place] showed moderate to severe increase in PA pressure with mild to moderate RV dysfunction. Left ventricular systolic function is preserved. Patient presently symptomatic with dyspnea there is concerns of increasing right pleural effusion for which thoracentesis is being planned. Mental status is relatively stable presently. Overall she appears to be quite frail. 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 She did not smoke cigarettes. There is no report of use of alcohol. No familial illnesses are reported. Past Medical History Cardiac Medical History: Reports: Congestive Heart Failure, Hypertension Pulmonary Medical History: Reports: Chronic Obstructive Pulmonary Disease (COPD) EENT Medical History: Denies: Throat Neurological Medical History: Denies: Migraine, Multiple Sclerosis, Seizures Endocrine Medical History: Reports: Diabetes Mellitus Type 1, Diabetes Mellitus Type 2, Hypothyroidism Malignancy Medical History: Reports: None GI Medical History: Reports: Cirrhosis, Gastroesophageal Reflux Disease Musculoskeltal Medical History: Reports: Arthritis Psychiatric Medical History: Denies: Depression Traumatic Medical History: Denies: Traumatic Brain Injury Hematology: Reports: Anemia Denies: Sickle Cell Disease Infectious Medical History: Denies: HIV Past Surgical History Past Surgical History: Reports: Section - x2, Cholecystectomy, Herniorrhaphy, Hysterectomy, Orthopedic Surgery, Other - Tips procedure Social History Lives with: Spouse/Significant other Smoking Status: Never Smoker Electronic Cigarette use?: No Frequency of Alcohol Use: None Hx Recreational Drug Use: No Drugs: None Hx Prescription Drug Abuse: No - Advance Directive Resuscitation Status: Full Code Family History Family History: COPD Parental Family History Reviewed: No - No familial illnesses Children Family History Reviewed: NA Sibling(s) Family History Reviewed.: NA Medication/Allergy Home Medications: Furosemide [Lasix 40 mg Tablet] 20 mg PO BID 03/14/19 Insulin Degludec [Tresiba Flextouch U-200] 16 units SUBCUT BID 03/14/19 Lactulose [Cephulac Syrup 20 gm/30 ml Udcup] 20 gm PO TID 03/14/19 Levothyroxine Sodium 150 mcg PO Q6AM 03/14/19 Pantoprazole Sodium [Protonix [address] Tablet] 40 mg PO QAM 03/14/19 Potassium Chloride [Klor-Con M20] 20 mg PO DAILY 03/14/19 Rifaximin [Xifaxan 550 mg Tablet] 550 mg PO Q12 03/14/19 Spironolactone [Aldactone] 100 mg PO BID 03/14/19 Ursodiol [Actigall 300 mg Capsule] 300 mg PO Q12 03/14/19 Allergies/Adverse Reactions: No Known Allergies Allergy (Verified 09/11/18 12:48) Review of Systems Constitutional: PRESENT: fatigue, weakness Respiratory: PRESENT: dyspnea Gastrointestinal: PRESENT: bloating Neurological: PRESENT: as per HPI Psychiatric: PRESENT: as per HPI Physical Exam Vital Signs: Temp Pulse Resp BP Pulse Ox 97.5 F 79 16 103/44 L 92 04/09/19 15:31 04/09/19 15:31 04/09/19 15:31 04/09/19 15:31 04/09/19 15:31 Intake & Output 04/08/19 04/09/19 04/10/19 06:59 06:59 06:59 Intake Total 2660 170 Output Total 300 Balance 2360 170 Weight 61 kg 60.7 kg 60.7 kg General appearance: PRESENT: no acute distress, cooperative, thin, well- developed Head exam: PRESENT: atraumatic, normocephalic Eye exam: PRESENT: conjunctiva pale, EOMI Mouth exam: PRESENT: moist Respiratory exam: PRESENT: decreased breath sounds, rales, symmetrical, tachypnea Cardiovascular exam: PRESENT: RRR, +S1, +S2 Pulses: PRESENT: normal radial pulses GI/Abdominal exam: PRESENT: soft Rectal exam: PRESENT: deferred Musculoskeletal exam: PRESENT: normal inspection Neurological exam: PRESENT: alert, awake, oriented to person, oriented to place, oriented to time, oriented to situation Psychiatric exam: PRESENT: appropriate affect Skin exam: PRESENT: dry, intact, pallor Results Laboratory Results: 04/09/19 04:49 04/09/19 04:49 04/09/19 04/09/19 04/09/19 04:49 04:49 04:49 WBC 3.9 L RBC 3.05 L Hgb 8.1 L Hct 25.2 L MCV 83 MCH 26.4 L MCHC 32.0 RDW 29.8 H Plt Count 103 L Sodium 136.0 L Potassium 4.2 Chloride 105 Carbon Dioxide 22 Anion Gap 9 BUN 33 H Creatinine 1.11 Est GFR ( Amer) 59 L Glucose 229 H Calcium 8.6 Total Bilirubin 2.9 H AST 21 Alkaline Phosphatase 100 Ammonia 34.4 H Total Protein 6.5 Albumin 3.1 L EKG Comments: No twelve-lead EKG in the chart. I have requested 1. Impressions: Thoracentesis Ultrasound 04/01/19 00:00 IMPRESSION: SUCCESSFUL THORACENTESIS USING ULTRASOUND GUIDANCE. Chest X-Ray 04/07/19 00:00 IMPRESSION: Increased bilateral basilar airspace disease and pleural effusions. KUB X-Ray 04/07/19 00:28 IMPRESSION: The tip and side hole of the enteric tube project within the gastric lumen. Chest CT 04/08/19 00:00 IMPRESSION: CARDIOMEGALY. LARGE BILATERAL PLEURAL EFFUSIONS WITH COMPRESSIVE ATELECTASIS IN THE LUNG BASES. Head CT 04/08/19 00:00 IMPRESSION: NORMAL BRAIN CT WITHOUT CONTRAST. CHRONIC RIGHT MAXILLARY SINUS DISEASE. EVIDENCE OF ACUTE STROKE: NO. Abdomen Ultrasound 04/09/19 00:00 IMPRESSION: 1. Patent TIPS. Trace ascites. 2. Splenomegaly measuring 17 cm. 3. Moderate bilateral pleural effusions, right greater than left. 4. Decompressed stomach with thickened avendano, possibly secondary to decompressed state or gastritis. Assessment & Plan - Diagnosis (1) CHF (congestive heart failure) Qualifiers: Heart failure type: unspecified Heart failure chronicity: chronic Qualified Code(s): I50.9 - Heart failure, unspecified Is this a current diagnosis for this admission?: Yes Plan: Apparently wedge pressure was elevated during right heart catheterization. It is hard to determine her volume status at the moment. Can consider repeating an echocardiogram which will also help evaluate PA pressures Judicious use of diuretics with attention to renal function is probably important. Overall on the most recent echocardiogram LV systolic function was preserved which is reassuring. (2) Portopulmonary hypertension Is this a current diagnosis for this admission?: Yes Plan: Treatment options are limited. Baseline blood pressure is low Could consider cautious use of Sildenafil (Revatio) at 20 mg three times a day for treatment of PAH Echocardiogram and also help guide therapy. Continue spironolactone and diuretic therapy with attention to renal function.
[2019-04-09] MEDS: CEFTRIAXONE 1 GM/D5W RTU 1 GM/50 ML RTUPB IV SCH (17:42)
[2019-04-10] MEDS: LEVOTHYROXINE SODIUM 0.15 MG TABLET PO SCH (05:22)
[2019-04-10] MEDS: LACTULOSE SYRUP 20 GM/30 ML UDCUP PO SCH ×3 (05:22→23:02)
[2019-04-10] MEDS: HEPARIN SOD (PORCINE) 5,000 UNIT/ML 1 ML VIAL SUBCUT SCH ×3 (05:26→23:04)
[2019-04-10] MEDS: INSULIN LISPRO 100 UNIT/ML 3 ML VIAL SUBCUT SCH ×6 (07:43→16:26)
--- NOTE | 2019-04-10 09:06 | EKG REPORT ---
SEVERITY:- ABNORMAL ECG - SINUS RHYTHM LOW VOLTAGE IN FRONTAL LEADS POOR R WAVE PROGRESSION SUGGESTS OLD ANTEROSEPTAL IA : Confirmed by: Chele Simmons MD 10-Apr-2019 07:00:33
[2019-04-10] MEDS ORDERED: INSULIN GLARGINE,HUM.REC.ANLOG 1,000 UNIT/10 ML VIAL (PYX) SUBCUT ONE (10:00)
[2019-04-10] MEDS ORDERED: INSULIN GLARGINE,HUM.REC.ANLOG 1,000 UNIT/10 ML VIAL SUBCUT SCH (10:00)
[2019-04-10] MEDS: RIFAXIMIN 550 MG TABLET PO SCH ×2 (10:37→23:03)
[2019-04-10] MEDS: FERROUS SULFATE 325 MG TABLET PO SCH (10:37)
[2019-04-10] MEDS: URSODIOL 300 MG CAPSULE PO SCH ×2 (10:37→23:04)
[2019-04-10] MEDS: MIDODRINE HCL 5 MG TABLET PO SCH ×3 (10:37→17:29)
[2019-04-10] MEDS: SPIRONOLACTONE 25 MG TABLET PO SCH ×2 (10:37→17:28)
[2019-04-10] MEDS: FUROSEMIDE INJ/PF 20 MG/2 ML SDV IV SCH ×2 (10:37→17:28)
--- NOTE | 2019-04-10 10:59 | RADIOLOGY REPORT (SQ) ---
EXAM DESCRIPTION: U/S ABDOMEN COMPLETE W/DOPPLER COMPLETED DATE/TIME: 04/10/2019 10:36 am REASON FOR STUDY: Duplex eval. TIPS velocities eval. Portal HTN? COMPARISON: None. TECHNIQUE: Dynamic and static grayscale images acquired of the liver and recorded on PACS. Additiona l selected color Doppler and spectral images recorded. Selected velocities recorded. Note: Study is not a complete duplex/doppler exam LIMITATIONS: None. FINDINGS: LIVER: Normal in echogenicity and size. No focal lesions are seen. LIVER VASCULATURE: Patent TIPS shunt. Main portal vein proximal to stent, hepatopetal flow, peak systolic velocity 56.5 cm/second, end-arzate tolic velocity 26.5 cm/second. Proximal stent, hepatopetal flow, peak systolic velocity 187.7 cm/second, end-diastolic velocity 73.2 cm/second. Mid stent, hepatofugal flow, peak systolic velocity 170.2 cm/second, end-diastolic velocity 44.5 cm/s econd. Distal stent, hepatofugal flow, peak systolic velocity 184.5 cm/second, end-diastolic velocity 93.8 c m/second. Portal vein distal to stent, hepatopetal flow, peak systolic velocity 182.9 cm/second, end-diastolic velocity 84.3 cm/second. Right hepatic vein, patent, hepatofugal flow. Middle hepatic vein, patent, hepatofugal flow. Left hepatic vein, patent, hepatofugal flow. Hepatic artery, hepatopetal flow, peak systolic velocity 130.7 cm/second, end-diastolic velocity 18.5 cm/second. Splenic vein at hilum, hepatopetal flow, peak systolic 18.7 cm/second, end-diastolic velocity 9.5 cm/ second. Splenic vein at pancreas, hepatopetal flow, peak systolic velocity 19.9 cm/second, end-diastolic [place] 9.7 cm/second. GALLBLADDER: Surgically absent. ULTRASOUND-DETECTED GAONA'S SIGN: Not documented. INTRAHEPATIC DUCTS AND COMMON DUCT: No dilated intrahepatic ducts. CBD diameter normal. ASCITES: Trace ascites. OTHER: No other significant finding. IMPRESSION: PATENT TIPS SHUNT. VELOCITIES ABOVE. COMMENT: Normal TIPS velocities 90- 190 cm/second. TECHNICAL DOCUMENTATION: JOB ID: [id number] 2010 [employer]- All Rights Reserved Reading location - IP/workstation name: [email or web address]
--- NOTE | 2019-04-10 16:27 | RADIOLOGY REPORT (SQ) ---
EXAM DESCRIPTION: CHEST SINGLE VIEW COMPLETED DATE/TIME: 04/10/2019 4:19 pm REASON FOR STUDY: S/P RT THORACENTESIS COMPARISON: 04/07/2019. EXAM PARAMETERS: NUMBER OF VIEWS: One view. TECHNIQUE: Single frontal radiographic view of the chest acquired. RADIATION DOSE: NA LIMITATIONS: None. FINDINGS: LUNGS AND PLEURA: Interval decrease in the right pleural effusion. No pneumothorax. Righ t basilar density. Left pleural effusion unchanged. MEDIASTINUM AND HILAR STRUCTURES: No masses. Contour normal. HEART AND VASCULAR STRUCTURES: Cardiomegaly. BONES: No acute findings. HARDWARE: None in the chest. OTHER: No other significant finding. IMPRESSION: NO PNEUMOTHORAX FOLLOWING RIGHT THORACENTESIS. INTERVAL DECREASE IN THE RIGHT PLEURAL E FFUSION. TECHNICAL DOCUMENTATION: JOB ID: [id number] 2010 [employer]- All Rights Reserved Reading location - IP/workstation name: [email or web address]
--- NOTE | 2019-04-10 16:46 | RADIOLOGY REPORT (SQ) ---
EXAM DESCRIPTION: U/S THORACENTESIS WITH IMAGING COMPLETED DATE/TIME: 04/10/2019 4:31 pm REASON FOR STUDY: right pleural effusion. hypoxia therapeutic COMPARISON: None. LIMITATIONS: None. PROCEDURE: Procedure, risks, benefit, and alternative explained to patient who then gave written con sent. The posterior right chest wall was marked using ultrasound guidance. A time-out was called fo r correct marking verification. Chest prepped and draped using sterile technique. Local anesthesia a chieved using 10 ml of 1% lidocaine injection. A 6fr Safe-T- Centesis set was introduced into the [facility] pleural space. Fluid was aspirated. The catheter was removed and the entry site was covered wit h sterile bandage. No immediate complications noted. Images acquired during the procedure were stored on PACS. FINDINGS: ENTRY SITE: posterior right chest. FLUID VOLUME: 1050 mL. FLUID ANALYSIS: Blood tinged. OTHER: Fluid sent to the lab for testing. IMPRESSION: SUCCESSFUL THORACENTESIS USING ULTRASOUND GUIDANCE. COMMENT: Patient medication list reviewed: Yes- Quality ID# [id number]:Eligible professional attests to doc umenting in the medical record they obtained, updated, or reviewed the patient's current medications. TECHNICAL DOCUMENTATION: JOB ID: [id number] 2010 [employer]- All Rights Reserved Reading location - IP/workstation name: [email or web address]
[2019-04-10 17:16] LABS: FLUID TYPE PLEURAL
[2019-04-10 17:19] LABS: FLUID APPEARANCE CLOUDY; FLUID COLOR DARK YELLOW; FLUID VISCOSITY SLIGHTLY VISCOUS
[2019-04-10] MEDS: CEFTRIAXONE 1 GM/D5W RTU 1 GM/50 ML RTUPB IV SCH (17:28)
[2019-04-10 18:04] LABS: FLUID SOURCE LUNG
--- NOTE | 2019-04-10 18:47 | PDOC PROGRESS REPORT ---
Subjective Progress Note for:: 04/10/19 Subjective:: Patient had thoracentesis performed today. Patient's requesting a letter to his regarding patient's prognosis. Reason For Visit: ACUTE RENAL FAILURE,PRIMARY BILIARY CHOLANGITIS, Physical Exam Vital Signs: Temp Pulse Resp BP Pulse Ox 97.2 F 87 18 99/54 L 95 04/10/19 16:00 04/10/19 16:00 04/10/19 16:00 04/10/19 16:00 04/10/19 16:00 Intake & Output 04/09/19 04/10/19 04/11/19 06:59 06:59 06:59 Intake Total 170 1150 1070 Balance 170 1150 1070 Weight 60.7 kg 60.5 kg General appearance: PRESENT: no acute distress, cooperative, thin. ABSENT: disheveled, morbidly obese Neck exam: ABSENT: JVD Respiratory exam: PRESENT: clear to auscultation josh, decreased breath sounds - At bases, unlabored. ABSENT: accessory muscle use, retraction Cardiovascular exam: PRESENT: RRR, +S1, +S2. ABSENT: tachycardia GI/Abdominal exam: PRESENT: soft. ABSENT: ascites, distended, rebound, rigid, tenderness Neurological exam: PRESENT: alert, awake Results Laboratory Results: 04/09/19 04:49 04/09/19 04:49 04/10/19 04/10/19 05:42 15:55 Ammonia 13.6 Fluid Type PLEURAL Fluid Source LUNG Fluid Color DARK YELLOW Fluid Appearance CLOUDY Fluid Viscosity SLIGHTLY VISCOUS Fluid WBC 266 Fluid RBC 9205 Impressions: KUB X-Ray 04/07/19 00:28 IMPRESSION: The tip and side hole of the enteric tube project within the gastric lumen. Chest CT 04/08/19 00:00 IMPRESSION: CARDIOMEGALY. LARGE BILATERAL PLEURAL EFFUSIONS WITH COMPRESSIVE ATELECTASIS IN THE LUNG BASES. Head CT 04/08/19 00:00 IMPRESSION: NORMAL BRAIN CT WITHOUT CONTRAST. CHRONIC RIGHT MAXILLARY SINUS DISEASE. EVIDENCE OF ACUTE STROKE: NO. Abdomen Ultrasound 04/10/19 00:00 IMPRESSION: PATENT TIPS SHUNT. VELOCITIES ABOVE. Thoracentesis Ultrasound 04/10/19 00:00 IMPRESSION: SUCCESSFUL THORACENTESIS USING ULTRASOUND GUIDANCE. Assessment and Plan - Diagnosis (1) 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 hypertension Is this a current diagnosis for this admission?: Yes (2) Acute metabolic encephalopathy Is this a current diagnosis for this admission?: Yes (3) Bilateral pleural effusion Is this a current diagnosis for this admission?: Yes (4) Hepatic encephalopathy Is this a current diagnosis for this admission?: Yes (5) Acute respiratory failure with hypoxia Is this a current diagnosis for this admission?: Yes (6) Hypotension Qualifiers: Hypotension type: other hypotension type Qualified Code(s): I95.89 - Other hypotension Is this a current diagnosis for this admission?: Yes (7) Urinary tract infection Qualifiers: Urinary tract infection type: acute cystitis Hematuria presence: with hematuria Qualified Code(s): N30.01 - Acute cystitis with hematuria Is this a current diagnosis for this admission?: Yes (8) Primary biliary cirrhosis Is this a current diagnosis for this admission?: Yes (9) Acute on chronic kidney failure Qualifiers: Chronic kidney disease stage: stage 3 (moderate) Is this a current diagnosis for this admission?: Yes (10) Diabetes mellitus Qualifiers: Diabetes mellitus type: other specified (including BALJEET) Is this a current diagnosis for this admission?: Yes (11) Anemia Qualifiers: Anemia type: other cause Other causes of anemia: chronic disease, other Qualified Code(s): D63.8 - Anemia in other chronic diseases classified elsewhere Is this a current diagnosis for this admission?: Yes (12) Back pain Qualifiers: Back pain location: low back pain Chronicity: acute Back pain laterality: bilateral Sciatica presence: without sciatica Qualified Code(s): M54.5 - Low back pain Is this a current diagnosis for this admission?: Yes (13) Physical debility Is this a current diagnosis for this admission?: Yes - Plan Summary Summary: Patient is status post thoracentesis repeat today during which 1 L of fluid was drained from the right lung. We will follow-up fluid analysis. Continue Lasix IV 20 mg twice a day Continue to monitor patient's renal function with BMP in the morning. Continue lactulose Continue Midodrine Continue ceftriaxone for UTI. Awaiting speciation Patient's prognosis is poor given her cirrhosis, pulmonary hypertension, difficulty to control pleural effusions and the fact that he is a poor candidate for liver transplant due to her severe pulmonary hypertension. Upon discussion with skid machine operator that [facility], was informed that patient had been informed that she was not a candidate for transplant at this time due to severe pulmonary hypertension and poor functional status but however, she could be reconsidered if her functional status improved and her pulmonary hypertension improved. Patient was supposed to follow-up with hepatology and pulmonology at [facility] upon discharge even though neurology had recommended palliative care during the encounter. Have consulted palliative care - Time Time Spent with patient: 15-24 minutes
--- NOTE | 2019-04-10 19:42 | RADIOLOGY REPORT (SQ) ---
EXAM DESCRIPTION: CHEST SINGLE VIEW COMPLETED DATE/TIME: 04/10/2019 6:39 pm REASON FOR STUDY: S/P RT THORACENTESIS- HOUR FILM COMPARISON: 04/10/2019 EXAM PARAMETERS: NUMBER OF VIEWS: One view. TECHNIQUE: Single frontal radiographic view of the chest acquired. RADIATION DOSE: NA LIMITATIONS: None. FINDINGS: LUNGS AND PLEURA: No pneumothorax. Right pleural effusion. Left pleural effusion. Airsp bryanna disease in the lower lobes. MEDIASTINUM AND HILAR STRUCTURES: No masses. Contour normal. HEART AND VASCULAR STRUCTURES: Cardiomegaly. No valerio pulmonary edema. BONES: No acute findings. HARDWARE: None in the chest. OTHER: No other significant finding. IMPRESSION: No pneumothorax status post thoracentesis. Airspace disease in the lower lobes, atelect asis versus pneumonia. Bilateral pleural effusions. TECHNICAL DOCUMENTATION: JOB ID: [id number] 2010 [employer]- All Rights Reserved Reading location - IP/workstation name: [email or web address]
[2019-04-10] MEDS: INSULIN GLARGINE,HUM.REC.ANLOG 1,000 UNIT/10 ML VIAL SUBCUT SCH (23:03)
[2019-04-11 06:02] LABS: ALBUMIN 2.9 g/dL (3.5-5.0); ALKALINE PHOSPHATASE 90 U/L (38-126); ANION GAP 8 (5-19); ASPARTATE AMINO TRANSFERASE 22 U/L (14-36); BILIRUBIN,DIRECT 1.5 mg/dL (0.0-0.4); BILIRUBIN,TOTAL 2.3 mg/dL (0.2-1.3); BLOOD UREA NITROGEN 33 mg/dL (7-20); CALCIUM 8.6 mg/dL (8.4-10.2); CARBON DIOXIDE 24 mmol/L (22-30); CHLORIDE 104 mmol/L (98-107); GLUCOSE 130 mg/dL (75-110); POTASSIUM 4.4 mmol/L (3.6-5.0); TOTAL PROTEIN 6.2 g/dL (6.3-8.2)
[2019-04-11] MEDS: LACTULOSE SYRUP 20 GM/30 ML UDCUP PO SCH ×3 (06:23→21:09)
[2019-04-11] MEDS: LEVOTHYROXINE SODIUM 0.15 MG TABLET PO SCH (06:23)
[2019-04-11] MEDS: HEPARIN SOD (PORCINE) 5,000 UNIT/ML 1 ML VIAL SUBCUT SCH ×3 (06:23→21:12)
[2019-04-11] MEDS: INSULIN LISPRO 100 UNIT/ML 3 ML VIAL SUBCUT SCH ×6 (07:41→17:34)
[2019-04-11] MEDS: FERROUS SULFATE 325 MG TABLET PO SCH (10:11)
[2019-04-11] MEDS: SPIRONOLACTONE 25 MG TABLET PO SCH ×2 (10:11→17:36)
[2019-04-11] MEDS: INSULIN GLARGINE,HUM.REC.ANLOG 1,000 UNIT/10 ML VIAL SUBCUT SCH ×2 (10:11→21:12)
[2019-04-11] MEDS: URSODIOL 300 MG CAPSULE PO SCH ×2 (10:12→21:09)
[2019-04-11] MEDS: MIDODRINE HCL 5 MG TABLET PO SCH ×3 (10:12→18:10)
[2019-04-11] MEDS: FUROSEMIDE INJ/PF 20 MG/2 ML SDV IV SCH ×2 (10:13→17:35)
[2019-04-11] MEDS: RIFAXIMIN 550 MG TABLET PO SCH ×2 (10:14→21:09)
--- NOTE | 2019-04-11 15:24 | PDOC PROGRESS REPORT ---
Subjective Progress Note for:: 04/11/19 Subjective:: Patient seen and examined. Resting in bed. Echocardiogram being performed. Had a right-sided thoracentesis for pleural effusion yesterday. Reason For Visit: ACUTE RENAL FAILURE,PRIMARY BILIARY CHOLANGITIS, Physical Exam Vital Signs: Temp Pulse Resp BP Pulse Ox 97.9 F 72 16 105/62 98 04/11/19 12:00 04/11/19 12:00 04/11/19 12:00 04/11/19 12:00 04/11/19 12:00 Intake & Output 04/10/19 04/11/19 04/12/19 06:59 06:59 06:59 Intake Total 1150 1750 500 Balance 1150 1750 500 Weight 60.5 kg 58 kg General appearance: PRESENT: no acute distress, cooperative, thin Head exam: PRESENT: atraumatic, normocephalic Eye exam: PRESENT: conjunctiva pale, EOMI Ear exam: PRESENT: normal external ear exam Mouth exam: PRESENT: moist Respiratory exam: PRESENT: crackles - No, decreased breath sounds - None known, symmetrical, unlabored Rectal exam: PRESENT: deferred Neurological exam: PRESENT: alert - Debilitated, awake, oriented to person, o riented to place, oriented to time Psychiatric exam: PRESENT: appropriate affect Skin exam: PRESENT: dry, intact, pallor Results Laboratory Results: 04/09/19 04:49 04/11/19 05:15 04/10/19 04/11/19 04/11/19 15:55 05:15 05:15 Sodium 136.3 L Potassium 4.4 Chloride 104 Carbon Dioxide 24 Anion Gap 8 BUN 33 H Creatinine 1.25 Est GFR ( Amer) 51 L Glucose 130 H Calcium 8.6 Total Bilirubin 2.3 H AST 22 Alkaline Phosphatase 90 Ammonia 25.9 Total Protein 6.2 L Albumin 2.9 L Fluid Type PLEURAL Fluid Source LUNG Fluid Color DARK YELLOW Fluid Appearance CLOUDY Fluid Viscosity SLIGHTLY VISCOUS Fluid WBC 266 Fluid RBC 9205 Impressions: KUB X-Ray 04/07/19 00:28 IMPRESSION: The tip and side hole of the enteric tube project within the ga stric lumen. Chest CT 04/08/19 00:00 IMPRESSION: CARDIOMEGALY. LARGE BILATERAL PLEURAL EFFUSIONS WITH COMPRESSIVE ATELECTASIS IN THE LUNG BASES. Head CT 04/08/19 00:00 IMPRESSION: NORMAL BRAIN CT WITHOUT CONTRAST. CHRONIC RIGHT MAXILLARY SINUS DISEASE. EVIDENCE OF ACUTE STROKE: NO. Abdomen Ultrasound 04/10/19 00:00 IMPRESSION: PATENT TIPS SHUNT. VELOCITIES ABOVE. Thoracentesis Ultrasound 04/10/19 00:00 IMPRESSION: SUCCESSFUL THORACENTESIS USING ULTRASOUND GUIDANCE. Chest X-Ray 04/10/19 18:00 IMPRESSION: No pneumothorax status post thoracentesis. Airspace disease in the lower lobes, atelectasis versus pneumonia. Bilateral pleural effusions. 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 Echocardiogram images were reviewed. There appears to be moderate tricuspid regurgitation at least. There is evidence of right ventricular pressure and volume overload. LV function appears to be preserved. Reasonable to continue present regimen of diuretics. Beta-blockade is also helpful in the situation. Phosphodiesterase inhibitors have been reported to be useful as well. (2) Portopulmonary hypertension Is this a current diagnosis for this admission?: Yes Plan: Status post thoracentesis for right-sided pleural effusion yesterday. Continue diuretic therapy Continue maintenance oxygen therapy Continue phosphodiesterase inhibitors
--- NOTE | 2019-04-11 17:02 | XCELERA REPORT ---
[address] [address] Transthoracic Echocardiogram Report Name: MAURA CHRIS Age: 69 yrs Gender: Female : 1950 Patient Status: Inpatient Patient Location: [address] [place], [place] [id number] Study Date: 04/11/2019 10:57 AM History: Primary biliary cirrhosis Portopulmonary hypertension Height: 59 in Weight: 133 lb BSA: 1.6 m2 Procedure: A complete two-dimensional transthoracic echocardiogram was performed (2D, M-mode, spectral and color flow Doppler). Reason For Study: re-evaluation of pulm HTN. Dr Delgado to read History: CHF. PAH. Ordering Physician: SCHUYLER COSTA Performed By: Ad Mcfadden Interpretation Summary Left ventricular systolic function is normal. The Ejection Fraction estimate is 55-60% The right ventricle is moderately dilated. The right ventricular systolic function is mildly reduced. There is a trace amount of mitral regurgitation There is no aortic valve stenosis There is a moderate to severe amount of tricuspid regurgitation There is moderate to severe pulmonary hypertension by echo Minimal pericardial effusion. MMode/2D Measurements & Calculations RVDd: 2.7 cm LVIDd: 5.2 cm FS: 33.9 % Ao root diam: 2.9 cm IVSd: 0.78 cm LVIDs: 3.4 cm EDV(Teich): 128.0 ml Ao root area: 6.4 cm2 LVPWd: 0.91 cm ESV(Teich): 48.1 ml LA dimension: 4.6 cm EF(Teich): 62.4 % Doppler Measurements & Calculations PA V2 max: 83.9 cm/sec TR max santosh: 399.1 cm/sec PA max P.8 mmHg TR max P.7 mmHg Left Ventricle The left ventricle is grossly normal size. There is borderline concentric left ventricular hypertrophy. Left ventricular systolic function is normal. The Ejection Fraction estimate is 55-60%. Flattened septum is consistent with RV pressure/volume overload. Paradoxical septal motion is consistent with right ventricular volume overload. Right Ventricle The right ventricle is moderately dilated. The right ventricular systolic function is mildly reduced. Atria The right atrium is moderately dilated. The left atrium is moderately dilated. Mitral Valve The mitral valve is grossly normal. There is no mitral valve stenosis. There is a trace amount of mitral regurgitation. Aortic Valve The aortic valve is grossly normal. The aortic valve is sclerotic, but shows no functional abnormality. The aortic valve opens well. There is no aortic valve stenosis. No aortic regurgitation is present. Tricuspid Valve The tricuspid valve is not well visualized, but is grossly normal. The tricuspid valve is normal in structure but shows some degree of being functionally abnormal. There is no tricuspid stenosis. There is a moderate to severe amount of tricuspid regurgitation. There is moderate to severe pulmonary hypertension by echo. RVSP 65 mm HG. Pulmonic Valve The pulmonic valve is not well visualized. There is a mild amount of pulmonic regurgitation. Great Vessels The aortic root is normal size. The inferior vena cava appeared dilated and decreased < 50% with respiration (RAP 15-20 mmHg). Effusions Minimal pericardial effusion. Electronically signed by: Syed Delgado 04/11/2019 05:02 PM CC: SCHUYLER COSTA Anil
[2019-04-11] MEDS: CEFTRIAXONE 1 GM/D5W RTU 1 GM/50 ML RTUPB IV SCH (17:35)
--- NOTE | 2019-04-11 18:25 | PDOC PROGRESS REPORT ---
Subjective Progress Note for:: 04/11/19 Subjective:: Patient has no complaints today. Feels well but complains of some coughing. Denies any shortness of breath or chest pain. Reason For Visit: ACUTE RENAL FAILURE,PRIMARY BILIARY CHOLANGITIS, Physical Exam Vital Signs: Temp Pulse Resp BP Pulse Ox 97.7 F 77 16 110/45 L 94 04/11/19 16:00 04/11/19 16:00 04/11/19 16:00 04/11/19 16:00 04/11/19 16:00 Intake & Output 04/10/19 04/11/19 04/12/19 06:59 06:59 06:59 Intake Total 1150 1750 500 Balance 1150 1750 500 Weight 60.5 kg 58 kg General appearance: PRESENT: no acute distress, cooperative Neck exam: ABSENT: JVD Respiratory exam: PRESENT: decreased breath sounds, unlabored. ABSENT: tachypnea, wheezes Cardiovascular exam: PRESENT: RRR, +S1, +S2. ABSENT: tachycardia GI/Abdominal exam: PRESENT: soft. ABSENT: ascites, rebound, rigid, tenderness Neurological exam: PRESENT: alert, awake, oriented to person, oriented to place, oriented to time Results Laboratory Results: 04/09/19 04:49 04/11/19 05:15 04/11/19 04/11/19 05:15 05:15 Sodium 136.3 L Potassium 4.4 Chloride 104 Carbon Dioxide 24 Anion Gap 8 BUN 33 H Creatinine 1.25 Est GFR ( Amer) 51 L Glucose 130 H Calcium 8.6 Total Bilirubin 2.3 H AST 22 Alkaline Phosphatase 90 Ammonia 25.9 Total Protein 6.2 L Albumin 2.9 L Impressions: KUB X-Ray 04/07/19 00:28 IMPRESSION: The tip and side hole of the enteric tube project within the gastric lumen. Chest CT 04/08/19 00:00 IMPRESSION: CARDIOMEGALY. LARGE BILATERAL PLEURAL EFFUSIONS WITH COMPRESSIVE ATELECTASIS IN THE LUNG BASES. Head CT 04/08/19 00:00 IMPRESSION: NORMAL BRAIN CT WITHOUT CONTRAST. CHRONIC RIGHT MAXILLARY SINUS DISEASE. EVIDENCE OF ACUTE STROKE: NO. Abdomen Ultrasound 04/10/19 00:00 IMPRESSION: PATENT TIPS SHUNT. VELOCITIES ABOVE. Thoracentesis Ultrasound 04/10/19 00:00 IMPRESSION: SUCCESSFUL THORACENTESIS USING ULTRASOUND GUIDANCE. Chest X-Ray 04/10/19 18:00 IMPRESSION: No pneumothorax status post thoracentesis. Airspace disease in the lower lobes, atelectasis versus pneumonia. Bilateral pleural effusions. Assessment and Plan - Diagnosis (1) 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 hypertension Is this a current diagnosis for this admission?: Yes Plan: Severe pulmonary hypertension noted on initial echo echocardiogram on 04/01/2019 showed LVEF of 65% with normal LV systolic and diastolic function, no significant abnormalities with AV and MV, but RVSP of 67 mmHg, moderate RV dilation and RV systolic dysfunction Had phone consultation with Dr. Byrnes [piped pocket machine operator at [facility]] and Dr. Rodarte who is the piped pocket machine operator pulmonary hypertension specialist who evaluated patient at [facility]. They informed me that patient's hemodynamics of RHC at [facility] was RV pressure 61/18, MPAP 40, wedge pressure 23. No vasoreactivity test was done. Dr. Rodarte states that he believes his pulmonary hypertension was secondary to portopulmonary hypertension and as such there was no indication for vasoreactivity testing or advanced therapy for treatment of pulmonary hyp ertension. He recommended continuing diuresis with Lasix and increasing dose of diuretics and consideration of the potential that effusions may be caused by hepatic hydrothorax even despite only trace ascites. Cardiology following 04/11/2019-Lasix increased to 40 mg IV twice daily. Continue to monitor renal function. Repeating echocardiogram today to reevaluate RVSP. Discussed with electrical power engineer who reviewed images briefly noting significant RV volume and pressure overload with relatively normal LV function. Palliative care has been consulted as patient states patient looks very dire given her liver failure compromised by significant pulmonary hypertension making candidacy for liver transplantation poor. 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 S/p repeat right-sided thoracentesis 04/10/2019 urine another liter of fluid. Fluid analysis pending but likely still transudate. Frequent incentive spirometer use to help her compressive atelectasis And concerned that her pleural effusions will continue to reaccumulate very fast and ultimately fever respiratory status compromised. I spoke with Dr. Rodarte piped pocket machine operator at [facility] via phone consult recommends against placement of chest tube/pleural catheters as patient had significant risk of dehydration if performed. (3) Acute metabolic encephalopathy Is this a current diagnosis for this admission?: Yes Plan: Metabolic encephalopathy currently resolved. (4) Hepatic encephalopathy Is this a current diagnosis for this admission?: Yes Plan: Resolved. Continue lactulose 40 mg every 8 hours and rifamixin (5) Acute respiratory failure with hypoxia Is this a current diagnosis for this admission?: Yes Plan: Secondary to pleural effusions with pulmonary hypertension. She remains on 2-3 L of oxygen (6) Hypotension Qualifiers: Hypotension type: other hypotension type Qualified Code(s): I95.89 - Other hypotension Is this a current diagnosis for this admission?: Yes Plan: Her blood pressure remains improved on Midodrine. Cautious diuresis. (7) Urinary tract infection Qualifiers: Urinary tract infection type: acute cystitis Hematuria presence: with hematuria Qualified Code(s): N30.01 - Acute cystitis with hematuria Is this a current diagnosis for this admission?: Yes Plan: Urine culture growing enterococcus. Day 5 of 5 of ceftriaxone. (8) Primary biliary cirrhosis Is this a current diagnosis for this admission?: Yes Plan: Chronic liver failure. Has had cirrhosis for over 5 years. Continue with salt restriction, ursodiol. (9) Acute on chronic kidney failure Qualifiers: Chronic kidney disease stage: stage 3 (moderate) Is this a current diagnosis for this admission?: Yes Plan: Kidney function significantly improved as compared to presentation. Continue to monitor BMP while performing cautious diuresis. (10) Diabetes mellitus Qualifiers: Diabetes mellitus type: other specified (including BALJEET) Is this a current diagnosis for this admission?: Yes Plan: Continue current regimen sliding scale coverage. (11) Anemia Qualifiers: Anemia type: other cause Other causes of anemia: chronic disease, other Qualified Code(s): D63.8 - Anemia in other chronic diseases classified elsewhere Is this a current diagnosis for this admission?: Yes (12) Back pain Qualifiers: Back pain location: low back pain Chronicity: acute Back pain laterality: bilateral Sciatica presence: without sciatica Qualified Code(s): M54.5 - Low back pain Is this a current diagnosis for this admission?: Yes (13) Physical debility Is this a current diagnosis for this admission?: Yes - Time Time Spent with patient: 15-24 minutes
[2019-04-12] MEDS: LACTULOSE SYRUP 20 GM/30 ML UDCUP PO SCH ×2 (06:05→21:31)
[2019-04-12] MEDS: LEVOTHYROXINE SODIUM 0.15 MG TABLET PO SCH (06:05)
[2019-04-12] MEDS: HEPARIN SOD (PORCINE) 5,000 UNIT/ML 1 ML VIAL SUBCUT SCH ×3 (06:06→21:32)
[2019-04-12] MEDS: INSULIN LISPRO 100 UNIT/ML 3 ML VIAL SUBCUT SCH ×6 (08:49→16:43)
[2019-04-12] MEDS: FUROSEMIDE INJ/PF 20 MG/2 ML SDV IV SCH ×2 (09:54→17:41)
[2019-04-12] MEDS: INSULIN GLARGINE,HUM.REC.ANLOG 1,000 UNIT/10 ML VIAL SUBCUT SCH ×2 (09:54→21:31)
[2019-04-12] MEDS: SPIRONOLACTONE 25 MG TABLET PO SCH ×2 (09:55→17:42)
[2019-04-12] MEDS: FERROUS SULFATE 325 MG TABLET PO SCH (09:55)
[2019-04-12] MEDS: MIDODRINE HCL 5 MG TABLET PO SCH ×3 (09:55→17:43)
[2019-04-12] MEDS: RIFAXIMIN 550 MG TABLET PO SCH ×2 (09:55→21:32)
[2019-04-12] MEDS: URSODIOL 300 MG CAPSULE PO SCH ×2 (09:56→21:32)
[2019-04-12] MEDS: CEFTRIAXONE 1 GM/D5W RTU 1 GM/50 ML RTUPB IV SCH (17:41)
--- NOTE | 2019-04-12 18:36 | PDOC PROGRESS REPORT ---
Subjective Progress Note for:: 04/12/19 Subjective:: Patient denies any shortness of breath. States that her coughing fits yesterday has improved today with incentive spirometer use. We had extensive conversation also about patient's overall condition. Reason For Visit: ACUTE RENAL FAILURE,PRIMARY BILIARY CHOLANGITIS, Physical Exam Vital Signs: Temp Pulse Resp BP Pulse Ox 97.2 F 70 17 98/39 L 96 04/12/19 15:12 04/12/19 15:12 04/12/19 15:12 04/12/19 15:12 04/12/19 15:12 Intake & Output 04/11/19 04/12/19 04/13/19 06:59 06:59 06:59 Intake Total 1750 810 480 Balance 1750 810 480 Weight 58 kg 57.7 kg General appearance: PRESENT: no acute distress, cooperative Respiratory exam: PRESENT: decreased breath sounds - Decreased at bilateral lung bases, unlabored. ABSENT: tachypnea, wheezes Cardiovascular exam: PRESENT: RRR, +S1, +S2. ABSENT: tachycardia GI/Abdominal exam: PRESENT: normal bowel sounds, soft. ABSENT: ascites, rebound, rigid, tenderness Extremities exam: ABSENT: calf tenderness, pedal edema Neurological exam: PRESENT: alert, awake, oriented to person, oriented to place, oriented to time, oriented to situation Skin exam: PRESENT: jaundice Results Laboratory Results: 04/09/19 04:49 04/11/19 05:15 04/10/19 04/10/19 04/10/19 15:55 15:55 15:55 Fluid Glucose 116 Fluid Total Protein 1.9 Fluid LDH 112 04/07/19 21:35 Clean Catch Midstream Urine Culture - Final Enterococcus Faecalis(Group D) Staph Coagulase Negative Impressions: KUB X-Ray 04/07/19 00:28 IMPRESSION: The tip and side hole of the enteric tube project within the gastric lumen. Chest CT 04/08/19 00:00 IMPRESSION: CARDIOMEGALY. LARGE BILATERAL PLEURAL EFFUSIONS WITH COMPRESSIVE ATELECTASIS IN THE LUNG BASES. Head CT 04/08/19 00:00 IMPRESSION: NORMAL BRAIN CT WITHOUT CONTRAST. CHRONIC RIGHT MAXILLARY SINUS DISEASE. EVIDENCE OF ACUTE STROKE: NO. Abdomen Ultrasound 04/10/19 00:00 IMPRESSION: PATENT TIPS SHUNT. VELOCITIES ABOVE. Thoracentesis Ultrasound 04/10/19 00:00 IMPRESSION: SUCCESSFUL THORACENTESIS USING ULTRASOUND GUIDANCE. Chest X-Ray 04/10/19 18:00 IMPRESSION: No pneumothorax status post thoracentesis. Airspace disease in the lower lobes, atelectasis versus pneumonia. Bilateral pleural effusions. Assessment and Plan - Diagnosis (1) 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 hypertension Is this a current diagnosis for this admission?: Yes Plan: Severe pulmonary hypertension noted on initial echo echocardiogram on 04/01/2019 showed LVEF of 65% with normal LV systolic and diastolic function, no significant abnormalities with AV and MV, but RVSP of 67 mmHg, moderate RV dilation and RV systolic dysfunction Had phone consultation with Dr. Byrnes [remotely operated vehicle at [facility]] and Dr. Rodarte who is the remotely operated vehicle pulmonary hypertension specialist who evaluated patient at [facility]. They informed me that patient's hemodynamics of RHC at [facility] was RV pressure 61/18, MPAP 40, wedge pressure 23. No vasoreactivity test was done. Dr. Rodarte states that he believes his pulmonary hypertension was secondary to portopulmonary hypertension and as such there was no indication for vasoreactivity testing or advanced therapy for treatment of pulmonary hypertension. He recommended continuing diuresis with Lasix and increasing dose of diuretics and consideration of the potential that effusions may be caused by hepatic hydrothorax even despite only trace ascites. Cardiology following 04/11/2019-Lasix increased to 40 mg IV twice daily. Continue to monitor renal function. Repeating echocardiogram today to reevaluate RVSP. Discussed with head wood grinder who reviewed images briefly noting significant RV volume and pressure overload with relatively normal LV function. Palliative care has been consulted as patient states patient looks very dire given her liver failure compromised by significant pulmonary hypertension making candidacy for liver transplantation poor. 04/12/2019-Lasix 20 mg IV twice daily today. Discussed patient's overall prognosis with patient and patient's . Interested in discussing further with palliative care team but would like to continue current medical therapy and optimize patient as much as possible. 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 S/p repeat right-sided thoracentesis 04/10/2019 yielding another liter of fluid. Fluid analysis pending but likely still transudate. Frequent incentive spirometer use to help her compressive atelectasis And concerned that her pleural effusions will continue to reaccumulate very fast and ultimately fever respiratory status compromised. I spoke with Dr. Rodarte remotely operated vehicle at [facility] via phone consult recommends against placement of chest tube/pleural catheters as patient had significant risk of dehydration if performed. 04/12/2019-encouraging incentive spirometer use to help open up areas of compressive atelectasis following most recent thoracentesis. Cough has improved today with frequent incentive spirometer use. I do anticipate that patient's effusions may reaccumulate and may end up needing repeated thoracentesis. (3) Acute metabolic encephalopathy Is this a current diagnosis for this admission?: Yes Plan: Metabolic encephalopathy currently resolved. (4) Hepatic encephalopathy Is this a current diagnosis for this admission?: Yes Plan: Resolved. Continue rifamixin. Lactulose 40 mg decreased from every 8 to every 12 hours (5) Acute respiratory failure with hypoxia Is this a current diagnosis for this admission?: Yes Plan: Secondary to pleural effusions with pulmonary hypertension. She remains on 2-3 L of oxygen (6) Hypotension Qualifiers: Hypotension type: other hypotension type Qualified Code(s): I95.89 - Other hypotension Is this a current diagnosis for this admission?: Yes Plan: Her blood pressure remains improved on Midodrine. Cautious diuresis. (7) Urinary tract infection Qualifiers: Urinary tract infection type: acute cystitis Hematuria presence: with hematuria Qualified Code(s): N30.01 - Acute cystitis with hematuria Is this a current diagnosis for this admission?: Yes Plan: Urine culture growing enterococcus. Completed 6 days of ceftriaxone. (8) Primary biliary cirrhosis Is this a current diagnosis for this admission?: Yes Plan: Chronic liver failure. Has had cirrhosis for over 5 years. Continue with salt restriction, ursodiol. Patient and still opting for optimization of pulmonary hypertension of functional status in order to revisit candidacy for liver transplantation. (9) Acute on chronic kidney failure Qualifiers: Chronic kidney disease stage: stage 3 (moderate) Is this a current diagnosis for this admission?: Yes Plan: Kidney function significantly improved as compared to presentation. Continue to monitor BMP while performing cautious diuresis. (10) Diabetes mellitus Qualifiers: Diabetes mellitus type: other specified (including BALJEET) Is this a current diagnosis for this admission?: Yes (11) Anemia Qualifiers: Anemia type: other cause Other causes of anemia: chronic disease, other Qualified Code(s): D63.8 - Anemia in other chronic diseases classified elsewhere Is this a current diagnosis for this admission?: Yes (12) Back pain Qualifiers: Back pain location: low back pain Chronicity: acute Back pain laterality: bilateral Sciatica presence: without sciatica Qualified Code(s): M54.5 - Low back pain Is this a current diagnosis for this admission?: Yes (13) Physical debility Is this a current diagnosis for this admission?: Yes - Time Time Spent with patient: 15-24 minutes
--- NOTE | 2019-04-12 18:41 | ADVANCED CARE ---
- Diagnosis (1) 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 hypertension Diagnosis Current: Yes (2) Bilateral pleural effusion Diagnosis Current: Yes (8) Primary biliary cirrhosis Diagnosis Current: Yes Attendance: Patient, and myself Resuscitation Status: Full Code Discussion: Discussed patient's overall poor prognosis with primary biliary cirrhosis and s evere pulmonary hypertension which has been resistant to current treatment. Discussed goals of care and I raised palliative care which patient said interested in consideration but has not yet made a decision on this. Currently still opting for optimization of pulmonary hypertension and hypoxic respiratory failure from pleural effusions as well as physical functional status with the hope that she will be able to meet candidacy for liver transplant in the future. However they would like to continue palliative care discussions and will talk further about it. I have raised hospice care as well which they have declined at this point. I have also informed them that patient will likely continue to need recurrent thoracentesis as she will continue to have reaccumulation of pleural effusions given her hepatic hydrothorax/severe pulmonary hypertension and cirrhosis. I will also touch base with [facility] for further coordination vacuum filter operator. Time Spent: 20 mins
[2019-04-13] MEDS: HEPARIN SOD (PORCINE) 5,000 UNIT/ML 1 ML VIAL SUBCUT SCH ×3 (05:01→22:15)
[2019-04-13] MEDS: LEVOTHYROXINE SODIUM 0.15 MG TABLET PO SCH (05:01)
[2019-04-13 06:30] LABS: ALKALINE PHOSPHATASE 96 U/L (38-126); ANION GAP 14 (5-19); ASPARTATE AMINO TRANSFERASE 23 U/L (14-36); BILIRUBIN,DIRECT 1.6 mg/dL (0.0-0.4); BILIRUBIN,TOTAL 2.1 mg/dL (0.2-1.3); BLOOD UREA NITROGEN 37 mg/dL (7-20); CALCIUM 8.6 mg/dL (8.4-10.2); CARBON DIOXIDE 22 mmol/L (22-30); CHLORIDE 103 mmol/L (98-107); POTASSIUM 4.1 mmol/L (3.6-5.0); TOTAL PROTEIN 6.7 g/dL (6.3-8.2)
[2019-04-13 06:47] LABS: GLUCOSE 33 mg/dL (75-110)
[2019-04-13] MEDS: INSULIN LISPRO 100 UNIT/ML 3 ML VIAL SUBCUT SCH ×6 (07:33→16:39)
[2019-04-13] MEDS: FERROUS SULFATE 325 MG TABLET PO SCH (10:25)
[2019-04-13] MEDS: SPIRONOLACTONE 25 MG TABLET PO SCH ×2 (10:25→17:52)
[2019-04-13] MEDS: FUROSEMIDE INJ/PF 20 MG/2 ML SDV IV SCH (10:25)
[2019-04-13] MEDS: URSODIOL 300 MG CAPSULE PO SCH ×2 (10:26→22:15)
[2019-04-13] MEDS: SILDENAFIL CITRATE 20 MG TABLET PO SCH ×3 (10:26→17:53)
[2019-04-13] MEDS: MIDODRINE HCL 5 MG TABLET PO SCH ×3 (10:26→17:53)
[2019-04-13] MEDS: RIFAXIMIN 550 MG TABLET PO SCH (10:27)
[2019-04-13] MEDS: INSULIN GLARGINE,HUM.REC.ANLOG 1,000 UNIT/10 ML VIAL SUBCUT SCH ×2 (11:22→22:15)
[2019-04-13] MEDS: LACTULOSE SYRUP 20 GM/30 ML UDCUP PO SCH ×2 (11:54→22:15)
--- NOTE | 2019-04-13 13:33 | PDOC PROGRESS REPORT ---
Subjective Progress Note for:: 04/13/19 Subjective:: Patient denies any shortness of breath. Patient does have swelling in the left leg which she says usually gets more swollen on the right leg. Patient was also noted to be hypoglycemic early this morning. Resolved with food intake. Reason For Visit: ACUTE RENAL FAILURE,PRIMARY BILIARY CHOLANGITIS, Physical Exam Vital Signs: Temp Pulse Resp BP Pulse Ox 98.1 F 76 12 84/57 L 95 04/13/19 07:48 04/13/19 07:48 04/13/19 07:48 04/13/19 07:48 04/13/19 07:48 Intake & Output 04/12/19 04/13/19 04/14/19 06:59 06:59 06:59 Intake Total 810 766 Balance 810 766 Weight 57.7 kg 56.8 kg General appearance: PRESENT: no acute distress, cooperative Neck exam: ABSENT: JVD Respiratory exam: PRESENT: clear to auscultation josh, decreased breath sounds - Of the lung bases, unlabored. ABSENT: tachypnea, wheezes Cardiovascular exam: PRESENT: RRR, +S1, +S2. ABSENT: tachycardia GI/Abdominal exam: PRESENT: normal bowel sounds, soft. ABSENT: ascites, rebound, rigid, tenderness Extremities exam: PRESENT: other - Swelling and tenderness of left lower extremity. No swelling of the right leg Neurological exam: PRESENT: alert, awake, oriented to person, oriented to place, oriented to time Psychiatric exam: ABSENT: agitated, anxious Results Laboratory Results: 04/09/19 04:49 04/13/19 05:37 04/10/19 04/10/19 04/10/19 15:55 15:55 15:55 Sodium Potassium Chloride Carbon Dioxide Anion Gap BUN Creatinine Est GFR ( Amer) Glucose Calcium Magnesium Total Bilirubin AST Alkaline Phosphatase Total Protein Albumin Fluid Glucose 116 Fluid Total Protein 1.9 Fluid LDH 112 04/13/19 05:37 Sodium 138.6 Potassium 4.1 Chloride 103 Carbon Dioxide 22 Anion Gap 14 BUN 37 H Creatinine 1.14 Est GFR ( Amer) 57 L Glucose 33 L* Calcium 8.6 Magnesium 1.8 Total Bilirubin 2.1 H AST 23 Alkaline Phosphatase 96 Total Protein 6.7 Albumin 3.0 L Fluid Glucose Fluid Total Protein Fluid LDH 04/10/19 15:55 Pleural Fluid Gram Stain - Final 04/07/19 20:24 Blood Blood Culture - Final NO GROWTH IN 5 DAYS 04/07/19 19:08 Blood Blood Culture - Final NO GROWTH IN 5 DAYS 04/07/19 21:35 Clean Catch Midstream Urine Culture - Final Enterococcus Faecalis(Group D) Staph Coagulase Negative Impressions: KUB X-Ray 04/07/19 00:28 IMPRESSION: The tip and side hole of the enteric tube project within the gastric lumen. Chest CT 04/08/19 00:00 IMPRESSION: CARDIOMEGALY. LARGE BILATERAL PLEURAL EFFUSIONS WITH COMPRESSIVE ATELECTASIS IN THE LUNG BASES. Head CT 04/08/19 00:00 IMPRESSION: NORMAL BRAIN CT WITHOUT CONTRAST. CHRONIC RIGHT MAXILLARY SINUS DISEASE. EVIDENCE OF ACUTE STROKE: NO. Abdomen Ultrasound 04/10/19 00:00 IMPRESSION: PATENT TIPS SHUNT. VELOCITIES ABOVE. Thoracentesis Ultrasound 04/10/19 00:00 IMPRESSION: SUCCESSFUL THORACENTESIS USING ULTRASOUND GUIDANCE. Chest X-Ray 04/10/19 18:00 IMPRESSION: No pneumothorax status post thoracentesis. Airspace disease in the lower lobes, atelectasis versus pneumonia. Bilateral pleural effusions. Assessment and Plan - Diagnosis (1) 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 hypertension Is this a current diagnosis for this admission?: Yes Plan: Severe pulmonary hypertension. 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 Data Review: 1. RHC at [facility] 02/2019 [Dr. Rodarte Pulm HTN specialist]: RV 61/18, MPAP 40, PCWP 23 [I believe elevated PCW must have been due to RV volume/pressure overload causing septum deviation compromising LV output as she was in Pulm HTN crisis at that time and not that left sided induced PHTN], Pulm VR 3.5. No vasoreactivity test done as not indicated for portopulmonary HTN. 2. TTE 04/01/2019: LVEF of 65% with normal LV systolic and diastolic function, no significant abnormalities with AV and MV, but RVSP > 67 mmHg, moderate RV dilation and RV systolic dysfunction 3. TTE 04/11/2019 for reassessment of pulm pressures: EF 55-60%, RV volume/pressure overload w/ moderate dilation, mild RV systolic dysfunction, RVSP 65 mmHg and essentially normal LV function. Continue diuresis with IV Lasix 20 mg twice daily, p.o. spironolactone and monitor renal function. I will start patient on trial of sildenafil 20 mg 3 times daily Avoid CCBs and beta-blockers. 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 s/p repeat right-sided thoracentesis 04/10/2019 yielding 1 L of transudative fluid. Frequent incentive spirometer after thoras for remnant compressive atelectasis Ultimately, her effusions especially on the right side will continue to reaccumulate and she will need repeated thoracentesis every 2 to 3 weeks as the ONLY fix for this is liver transplantation and her hepatic hydrothorax has been refractory to TIPS. TIPS was evaluated with abdominal ultrasound Dopplers which shows patency and normal TIPS velocities. Chest tube/pleural catheters are NOT indicated in this patient population as it would lead to significant dehydration, electrolyte derangements and renal failure. (3) Acute respiratory failure with hypoxia Is this a current diagnosis for this admission?: Yes Plan: Secondary to hepatic hydrothorax and pulmonary hypertension. She remains on 2-3 L of oxygen. Given the chronic and unfixable nature of these 2 conditions in the absence of liver transplantation for which patientdoes not currently meet candidacy for, I believe the patient should be able to qualify for home oxygen. I will try to qualify patient for oxygen and schedule repeat thoracentesis every 2 to 3 weeks and outpatient follow-up with hepatology at [facility] (4) Primary biliary cirrhosis Is this a current diagnosis for this admission?: Yes Plan: Chronic liver failure. Has had cirrhosis for over 5 years. Continue with salt restriction, ursodiol. Patient was deemed by Hepatology at [facility] to not be a surgical candidate at that time given severe pulmonary hypertension with PVR of 3.5 and poor functional status and palliative was recommended. However they also said it could be revisited if patient's pulmonary HTN and functional status improved Patient and still opting for optimization of pulmonary hypertension of functional status in order to revisit candidacy for liver transplantation. Palliative care consulted. (5) Hepatic encephalopathy Is this a current diagnosis for this admission?: Yes Plan: Resolved. Continue rifamixin and lactulose 40 mg bid. (6) Hypotension Qualifiers: Hypotension type: other hypotension type Qualified Code(s): I95.89 - Other hypotension Is this a current diagnosis for this admission?: Yes Plan: Her blood pressure remains improved on Midodrine. Cautious diuresis. (7) Urinary tract infection Qualifiers: Urinary tract infection type: acute cystitis Hematuria presence: with hematuria Qualified Code(s): N30.01 - Acute cystitis with hematuria Is this a current diagnosis for this admission?: Yes Plan: Enterococcus. Completed 6 days of ceftriaxone on 04/12. (8) Acute on chronic kidney failure Qualifiers: Chronic kidney disease stage: stage 3 (moderate) Is this a current diagnosis for this admission?: Yes Plan: Improved significantly as compared to presentation. Continue to monitor BMP and cautious diuresis. (9) Diabetes mellitus Qualifiers: Diabetes mellitus type: other specified (including BALJEET) Is this a current diagnosis for this admission?: Yes Plan: Lantus dose adjusted due to a.m. hypoglycemia. Continue sliding scale. (10) Anemia Qualifiers: Anemia type: other cause Other causes of anemia: chronic disease, other Qualified Code(s): D63.8 - Anemia in other chronic diseases classified elsewhere Is this a current diagnosis for this admission?: Yes Plan: Likely secondary to chronic disease though with some underlying iron deficiency. Continue iron sulfate. Hemoglobin holding steady at this point. (11) Physical debility Is this a current diagnosis for this admission?: Yes Plan: PT (12) Back pain Qualifiers: Back pain location: low back pain Chronicity: acute Back pain laterality: bilateral Sciatica presence: without sciatica Qualified Code(s): M54.5 - Low back pain Is this a current diagnosis for this admission?: Yes - Time Time Spent with patient: 15-24 minutes
[2019-04-14] MEDS: HEPARIN SOD (PORCINE) 5,000 UNIT/ML 1 ML VIAL SUBCUT SCH ×2 (05:13→14:36)
[2019-04-14] MEDS: LEVOTHYROXINE SODIUM 0.15 MG TABLET PO SCH (05:13)
[2019-04-14] MEDS: INSULIN LISPRO 100 UNIT/ML 3 ML VIAL SUBCUT SCH ×5 (07:17→17:17)
[2019-04-14] MEDS: SILDENAFIL CITRATE 20 MG TABLET PO SCH ×3 (08:06→17:22)
[2019-04-14] MEDS: SPIRONOLACTONE 25 MG TABLET PO SCH ×2 (09:41→17:22)
[2019-04-14] MEDS: FERROUS SULFATE 325 MG TABLET PO SCH (09:41)
[2019-04-14] MEDS: MIDODRINE HCL 5 MG TABLET PO SCH ×3 (09:41→17:54)
[2019-04-14] MEDS: URSODIOL 300 MG CAPSULE PO SCH ×2 (09:42→22:06)
[2019-04-14] MEDS: LACTULOSE SYRUP 20 GM/30 ML UDCUP PO SCH ×2 (09:42→22:06)
--- NOTE | 2019-04-14 09:56 | RADIOLOGY REPORT (SQ) ---
EXAM DESCRIPTION: CHEST 2 VIEWS COMPLETED DATE/TIME: 04/14/2019 9:33 am REASON FOR STUDY: effusion reassessment COMPARISON: AP view of the chest from 04/10/2019. EXAM PARAMETERS: NUMBER OF VIEWS: Two views. TECHNIQUE: PA and lateral views of the chest were obtained.. RADIATION DOSE: NA LIMITATIONS: none FINDINGS: LUNGS AND PLEURA: Basilar predominant bilateral parenchymal and pleural opacities and diff use prominence of the interstitium. There is no pneumothorax. MEDIASTINUM AND HILAR STRUCTURES: Stable mediastinal and hilar contours. HEART AND VASCULAR STRUCTURES: Stable cardiac silhouette. BONES: Osteopenia. HARDWARE: None in the chest. OTHER: No other finding. IMPRESSION: Low inspiratory lung volumes with diffuse prominence of the interstitium and basilar pre dominant parenchymal and pleural opacities. Correlate with clinical findings for signs and symptoms of volume overload. TECHNICAL DOCUMENTATION: JOB ID: [id number] 2011 [employer]- All Rights Reserved Reading location - IP/workstation name: [email or web address]
[2019-04-14] MEDS: INSULIN GLARGINE,HUM.REC.ANLOG 1,000 UNIT/10 ML VIAL SUBCUT SCH ×2 (10:00→22:04)
[2019-04-14] MEDS ORDERED: FUROSEMIDE 20 MG TABLET PO SCH (10:00)
--- NOTE | 2019-04-14 16:40 | PDOC PROGRESS REPORT ---
Subjective Progress Note for:: 04/14/19 Subjective:: I have another extensive conversation with patient, patient's [id number] and patient's regarding patient's situation. Palliative care to follow today. I strongly recommended to family to consider palliative route given rapid reaccumulation of hepatic hydrothorax. Patient and family understand but still hoping for a shot at transplant. I have described the treatment plan. Patient's daughter in law tells me that her (patient's son), who is in the , will be flying back in to see patient. Reason For Visit: ACUTE RENAL FAILURE,PRIMARY BILIARY CHOLANGITIS, Physical Exam Vital Signs: Temp Pulse Resp BP Pulse Ox 97.8 F 71 12 94/39 L 96 04/14/19 11:16 04/14/19 14:00 04/14/19 11:16 04/14/19 11:16 04/14/19 11:16 Intake & Output 04/13/19 04/14/19 04/15/19 06:59 06:59 06:59 Intake Total 766 418 Balance 766 418 Weight 56.8 kg 56.6 kg General appearance: PRESENT: no acute distress, cooperative Neck exam: ABSENT: JVD Respiratory exam: PRESENT: clear to auscultation josh, decreased breath sounds - Decreased in lung bases, unlabored. ABSENT: tachypnea, wheezes Cardiovascular exam: PRESENT: RRR, +S1, +S2. ABSENT: tachycardia Neurological exam: PRESENT: alert, awake, oriented to person, oriented to place, oriented to time, oriented to situation Skin exam: PRESENT: jaundice Results Laboratory Results: 04/09/19 04:49 04/13/19 05:37 04/10/19 15:55 Pleural Fluid Gram Stain - Final 04/10/19 15:55 Pleural Fluid Body Fluid Culture - Final NO AEROBIC OR ANAEROBIC ORGANISMS RECOVERED Impressions: KUB X-Ray 04/07/19 00:28 IMPRESSION: The tip and side hole of the enteric tube project within the gastric lumen. Chest CT 04/08/19 00:00 IMPRESSION: CARDIOMEGALY. LARGE BILATERAL PLEURAL EFFUSIONS WITH COMPRESSIVE ATELECTASIS IN THE LUNG BASES. Head CT 04/08/19 00:00 IMPRESSION: NORMAL BRAIN CT WITHOUT CONTRAST. CHRONIC RIGHT MAXILLARY SINUS DISEASE. EVIDENCE OF ACUTE STROKE: NO. Abdomen Ultrasound 04/10/19 00:00 IMPRESSION: PATENT TIPS SHUNT. VELOCITIES ABOVE. Thoracentesis Ultrasound 04/10/19 00:00 IMPRESSION: SUCCESSFUL THORACENTESIS USING ULTRASOUND GUIDANCE. Chest X-Ray 04/14/19 00:00 IMPRESSION: Low inspiratory lung volumes with diffuse prominence of the interstitium and basilar predominant parenchymal and pleural opacities. Correlate with clinical findings for signs and symptoms of volume overload. Assessment and Plan - Diagnosis (1) 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 hypertension Is this a current diagnosis for this admission?: Yes Plan: Severe pulmonary hypertension. 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 Data Review: 1. RHC at [facility] 02/2019 [Dr. Rodarte Pulm HTN specialist]: RV 61/18, MPAP 40, PCWP 23 [I believe elevated PCW must have been due to RV volume/pressure overload causing septum deviation compromising LV output as she was in Pulm HTN crisis at that time and not that left sided induced PHTN], Pulm VR 3.5. No vasoreactivity test done as not indicated for portopulmonary HTN. 2. TTE 04/01/2019: LVEF of 65% with normal LV systolic and diastolic function, no significant abnormalities with AV and MV, but RVSP > 67 mmHg, moderate RV dilation and RV systolic dysfunction 3. TTE 04/11/2019 for reassessment of pulm pressures: EF 55-60%, RV volume/pressure overload w/ moderate dilation, mild RV systolic dysfunction, RVSP 65 mmHg and essentially normal LV function. Continue diuresis with IV Lasix 20 mg twice daily, p.o. spironolactone and monitor renal function. continue trial of sildenafil 20 mg 3 times daily Avoid CCBs and beta-blockers. 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 s/p repeat right-sided thoracentesis 04/10/2019 yielding 1 L of transudative fluid. Frequent incentive spirometer after thoras for remnant compressive atelectasis Will need to plan for repeat thoracentesis as fluid has reacummulated on todays XRay mostly on thr ight side Ultimately, her effusions especially on the right side will continue to reaccumulate and she will need repeated thoracentesis every 2 to 3 weeks as the ONLY fix for this is liver transplantation and her hepatic hydrothorax has been refractory to TIPS. TIPS was evaluated with abdominal ultrasound Dopplers which shows patency and normal TIPS velocities. Chest tube/pleural catheters are NOT indicated in this patient population as it would lead to significant dehydration, electrolyte derangements and renal failure. (3) Acute respiratory failure with hypoxia Is this a current diagnosis for this admission?: Yes Plan: Secondary to hepatic hydrothorax and pulmonary hypertension. She remains on 2-3 L of oxygen. Given the chronic and unfixable nature of these 2 conditions in the absence of liver transplantation for which patient does not currently meet candidacy for, I believe this will be a chronic issue for this patient in the absence of liver transplantation. (4) Primary biliary cirrhosis Is this a current diagnosis for this admission?: Yes Plan: Chronic liver failure. Has had cirrhosis for over 5 years. Continue with salt restriction, ursodiol. Patient was deemed by Hepatology at [facility] to not be a surgical candidate at that time given severe pulmonary hypertension with PVR of 3.5 and poor functional sta tus and palliative was recommended. However they also said it could be revisited if patient's pulmonary HTN and functional status improved Patient and still opting for optimization of pulmonary hypertension of functional status in order to revisit candidacy for liver transplantation. Palliative care consulted. (5) Hepatic encephalopathy Is this a current diagnosis for this admission?: Yes Plan: Resolved. Continue rifamixin and lactulose 40 mg bid. (6) Hypotension Qualifiers: Hypotension type: other hypotension type Qualified Code(s): I95.89 - Other hypotension Is this a current diagnosis for this admission?: Yes Plan: Her blood pressure remains improved on Midodrine increased dose to 10mg tid. Cautious diuresis. (7) Urinary tract infection Qualifiers: Urinary tract infection type: acute cystitis Hematuria presence: with hematuria Qualified Code(s): N30.01 - Acute cystitis with hematuria Is this a current diagnosis for this admission?: Yes Plan: Enterococcus. Completed 6 days of ceftriaxone on 04/12. (8) Acute on chronic kidney failure Qualifiers: Chronic kidney disease stage: stage 3 (moderate) Is this a current diagnosis for this admission?: Yes Plan: Improved significantly as compared to presentation. Continue to monitor BMP and cautious diuresis. (9) Diabetes mellitus Qualifiers: Diabetes mellitus type: other specified (including BALJEET) Is this a current diagnosis for this admission?: Yes (10) Anemia Qualifiers: Anemia type: other cause Other causes of anemia: chronic disease, other Qualified Code(s): D63.8 - Anemia in other chronic diseases classified elsewhere Is this a current diagnosis for this admission?: Yes (11) Physical debility Is this a current diagnosis for this admission?: Yes (12) Back pain Qualifiers: Back pain location: low back pain Chronicity: acute Back pain laterality: bilateral Sciatica presence: without sciatica Qualified Code(s): M54.5 - Low back pain Is this a current diagnosis for this admission?: Yes - Time Time Spent with patient: 25-34 minutes
--- NOTE | 2019-04-14 17:19 | XCELERA REPORT ---
[address] [place] [facility] [address] Lower Extremity Venous Evaluation Procedure: Color flow and duplex imaging of the veins of the left lower extremity as well as the right Common Femoral vein. Right Sided Venous Evaluation The right common femoral vein is fully compressible. Spontaneous and phasic flow is present in the right common femoral vein. Left Sided Venous Evaluation Normal vessel filling wall to wall, compression and augmentation as well as Colour flow down to the infrageniculate veins. Interpretation Summary No duplex evidence of DVT or obstruction in the left lower extremity nor in the right Common Femoral vein. Name: MAURA CHRIS Age: 69 yrs Gender: Female : 1950 Patient Status: Inpatient Patient Location: [facility]^A Study Date: 04/14/2019 10:48 AM Reason For Study: left leg swelling Ordering Physician: SCHUYLER COSTA Performed By: Alysa Louis : SCHUYLER COSTA > Ernesto Caldwell
[2019-04-14] MEDS ORDERED: FUROSEMIDE INJ/PF 20 MG/2 ML SDV IV ONE (18:00)
[2019-04-14] MEDS ORDERED: FUROSEMIDE INJ/PF 20 MG/2 ML SDV IV SCH (18:00)
[2019-04-15 05:33] LABS: PROTHROMBIN TIME 18.3 SEC (11.4-15.4)
[2019-04-15 05:34] LABS: HEMATOCRIT 26.7 % (36.0-47.0); HEMOGLOBIN 8.8 g/dL (12.0-15.5); MEAN CORPUSCULAR HEMOGLOBIN 27.9 pg (27.0-33.4); MEAN CORPUSCULAR HGB CONC 32.8 g/dL (32.0-36.0); MEAN CORPUSCULAR VOLUME 85 fl (80-97); RED BLOOD COUNT 3.14 10^6/uL (3.72-5.28); RED CELL DISTRIBUTION WIDTH 30.4 % (11.5-14.0); WHITE BLOOD COUNT 3.8 10^3/uL (4.0-10.5)
[2019-04-15 05:51] LABS: ALBUMIN 2.9 g/dL (3.5-5.0); ALKALINE PHOSPHATASE 101 U/L (38-126); ANION GAP 12 (5-19); ASPARTATE AMINO TRANSFERASE 23 U/L (14-36); BILIRUBIN,DIRECT 1.7 mg/dL (0.0-0.4); BILIRUBIN,TOTAL 2.4 mg/dL (0.2-1.3); BLOOD UREA NITROGEN 43 mg/dL (7-20); CALCIUM 8.6 mg/dL (8.4-10.2); CARBON DIOXIDE 22 mmol/L (22-30); CHLORIDE 104 mmol/L (98-107); POTASSIUM 4.6 mmol/L (3.6-5.0); TOTAL PROTEIN 6.4 g/dL (6.3-8.2)
[2019-04-15 06:18] LABS: PLATELET COUNT 99 10^3/uL (150-450)
[2019-04-15 06:22] LABS: GLUCOSE 62 mg/dL (75-110)
[2019-04-15] MEDS: LEVOTHYROXINE SODIUM 0.15 MG TABLET PO SCH (06:39)
[2019-04-15] MEDS: SILDENAFIL CITRATE 20 MG TABLET PO SCH ×3 (08:26→16:30)
[2019-04-15] MEDS: INSULIN LISPRO 100 UNIT/ML 3 ML VIAL SUBCUT SCH ×3 (08:32→17:31)
[2019-04-15] MEDS: MIDODRINE HCL 5 MG TABLET PO SCH ×3 (09:56→17:30)
[2019-04-15] MEDS: ALBUMIN HUMAN 12.5 GM/50 ML RTUINJ IV SCH ×2 (09:56→11:40)
[2019-04-15] MEDS: FERROUS SULFATE 325 MG TABLET PO SCH (09:56)
[2019-04-15] MEDS: URSODIOL 300 MG CAPSULE PO SCH ×2 (09:58→21:23)
[2019-04-15] MEDS: SPIRONOLACTONE 25 MG TABLET PO SCH ×2 (09:58→17:30)
[2019-04-15] MEDS ORDERED: FUROSEMIDE INJ/PF 20 MG/2 ML SDV IV SCH (10:00)
[2019-04-15] MEDS: LACTULOSE SYRUP 20 GM/30 ML UDCUP PO SCH ×2 (10:05→21:15)
--- NOTE | 2019-04-15 10:06 | RADIOLOGY REPORT (SQ) ---
EXAM DESCRIPTION: CHEST SINGLE VIEW COMPLETED DATE/TIME: 04/15/2019 8:23 am REASON FOR STUDY: S/P RIGHT THORA COMPARISON: Chest radiograph, 04/14/2019 EXAM PARAMETERS: NUMBER OF VIEWS: One view. TECHNIQUE: Single frontal radiographic view of the chest acquired. RADIATION DOSE: NA LIMITATIONS: None. FINDINGS: LUNGS AND PLEURA: Decreased small to moderate right pleural effusion. Small left effusion is stable. No pneumothorax. Compressive atelectasis/ consolidation at the lung bases. MEDIASTINUM AND HILAR STRUCTURES: No masses. Contour normal. HEART AND VASCULAR STRUCTURES: Moderate cardiomegaly. No pulmonary vascular congestion. BONES: No acute findings. HARDWARE: None in the chest. OTHER: No other significant finding. IMPRESSION: Decreased right pleural effusion. No pneumothorax. TECHNICAL DOCUMENTATION: JOB ID: [id number] 2010 [employer]- All Rights Reserved Reading location - IP/workstation name: [email or web address]
--- NOTE | 2019-04-15 10:13 | RADIOLOGY REPORT (SQ) ---
EXAM DESCRIPTION: U/S THORACENTESIS WITH IMAGING COMPLETED DATE/TIME: 04/15/2019 9:31 am REASON FOR STUDY: right hepatic hydrothorax. Hypoxia. Therapeutic COMPARISON: 03/31/[address] chest 04/08/2019 Chest films 04/14/2019, 04/11/2019 LIMITATIONS: None. PROCEDURE: Procedure, risks, benefit, and alternative explained to patient who then gave written con sent. The posterior right chest wall was marked using ultrasound guidance. A time-out was called fo r correct marking verification. Chest prepped and draped using sterile technique. Local anesthesia a chieved using 6 ml of 1% lidocaine injection. A 6fr Safe-T- Centesis set was introduced into the pos terior right pleural space. Fluid was aspirated. The catheter was removed and the entry site was co lorin with sterile bandage. No immediate complications noted. 800 mL of clear yellow fluid was remov ed right chest. No testing on the fluid. Images acquired during the procedure were stored on PACS. FINDINGS: ENTRY SITE: Posterior right pleural space FLUID VOLUME: 800 mL FLUID ANALYSIS: Clear yellow straw-colored fluid. No specimens were sent for testing OTHER: Therapeutic only IMPRESSION: SUCCESSFUL THORACENTESIS USING ULTRASOUND GUIDANCE. COMMENT: Patient medication list reviewed: Yes- Quality ID# [id number]:Eligible professional attests to doc umenting in the medical record they obtained, updated, or reviewed the patient's current medications. TECHNICAL DOCUMENTATION: JOB ID: [id number] 2010 [employer]- All Rights Reserved Reading location - IP/workstation name: [email or web address]
[2019-04-15] MEDS: INSULIN GLARGINE,HUM.REC.ANLOG 1,000 UNIT/10 ML VIAL SUBCUT SCH (11:03)
--- NOTE | 2019-04-15 11:03 | Progress Note ---
Provider Note Provider Note: patient is followed by [facility] has TIPS have spoken to Dr Moss over the phone no added suggestions for her cirrhosis at this point pulmonary issues likely due to pulmonary hypertension may need pulmonary consult with respect to her ongoing issues recommendations made to Dr Moss Formal consultation can be deferred for now
--- NOTE | 2019-04-15 12:22 | RADIOLOGY REPORT (SQ) ---
EXAM DESCRIPTION: CHEST SINGLE VIEW COMPLETED DATE/TIME: 04/15/2019 11:27 am REASON FOR STUDY: S/P RIGHT THORA COMPARISON: Chest films 04/15/2019, 04/14/2019, 04/10/2019 CT chest 04/08/2019 EXAM PARAMETERS: NUMBER OF VIEWS: One view. TECHNIQUE: Single frontal radiographic view of the chest acquired. RADIATION DOSE: NA LIMITATIONS: None. FINDINGS: LUNGS AND PLEURA: Trace right apical pneumothorax marked with arrows. Follow-up film in 2 hours will be obtained. Persistent bibasilar atelectasis is present. Minimal residual right pleural fluid persists just abov e the right hemidiaphragm. Trace left pleural effusion unchanged MEDIASTINUM AND HILAR STRUCTURES: No masses. Contour normal. HEART AND VASCULAR STRUCTURES: Stable mild cardiomegaly BONES: No acute findings. HARDWARE: None in the chest. OTHER: No other significant finding. IMPRESSION: Trace right apical pneumothorax marked with arrows. Follow-up film in 2 hours will be o btained. TECHNICAL DOCUMENTATION: JOB ID: [id number] 2010 [employer]- All Rights Reserved Reading location - IP/workstation name: [email or web address]
--- NOTE | 2019-04-15 14:26 | RADIOLOGY REPORT (SQ) ---
EXAM DESCRIPTION: CHEST SINGLE VIEW COMPLETED DATE/TIME: 04/15/2019 2:00 pm REASON FOR STUDY: R/U pneumothorax COMPARISON: Chest films 04/15/2019 post thoracentesis EXAM PARAMETERS: NUMBER OF VIEWS: One view. TECHNIQUE: Single frontal radiographic view of the chest acquired. RADIATION DOSE: NA LIMITATIONS: None. FINDINGS: LUNGS AND PLEURA: 4 hour delay AP chest film post right thoracentesis demonstrates a stabl e trace right apical pneumothorax. Findings discussed with Dr. Moss Minimal persistent right pleural fluid. Persistent dense consolidation in the right lower lobe uncha nged. Trace left pleural effusion with left basilar consolidation unchanged. MEDIASTINUM AND HILAR STRUCTURES: No masses. Contour normal. HEART AND VASCULAR STRUCTURES: Stable cardiomegaly BONES: No acute findings. HARDWARE: Upper abdominal TIPS OTHER: No other significant finding. IMPRESSION: Trace stable right apical pneumothorax 4 hours post right thoracentesis TECHNICAL DOCUMENTATION: JOB ID: [id number] 2011 [employer]- All Rights Reserved Reading location - IP/workstation name: [email or web address]
--- NOTE | 2019-04-15 18:30 | PDOC PROGRESS REPORT ---
Subjective Progress Note for:: 04/15/19 Subjective:: Patient feels well today. Denies any shortness of breath at the time of encounter. Patient did undergo thoracentesis this morning with removal of 800 cc. Patient did become hypotensive with systolic in the 80s at that time and as such no more fluid was removed. Patient did have palliative care discussion with Bren today and I was informed that patient declined palliative and hospice. Reason For Visit: ACUTE RENAL FAILURE,PRIMARY BILIARY CHOLANGITIS, Physical Exam Vital Signs: Temp Pulse Resp BP Pulse Ox 97.1 F 62 20 106/41 L 96 04/15/19 12:00 04/15/19 12:00 04/15/19 12:00 04/15/19 12:00 04/15/19 12:00 Intake & Output 04/14/19 04/15/19 04/16/19 06:59 06:59 06:59 Intake Total 418 380 290 Balance 418 380 290 Weight 56.6 kg 56.6 kg General appearance: PRESENT: no acute distress, cooperative Neck exam: ABSENT: JVD Respiratory exam: PRESENT: clear to auscultation josh, decreased breath sounds - Right lung base, unlabored. ABSENT: tachypnea, wheezes Cardiovascular exam: PRESENT: RRR, +S1, +S2. ABSENT: tachycardia GI/Abdominal exam: PRESENT: normal bowel sounds, soft. ABSENT: ascites, rebound, rigid, tenderness Neurological exam: PRESENT: alert, awake, oriented to person, oriented to place, oriented to time Skin exam: PRESENT: jaundice Results Laboratory Results: 04/15/19 04:45 04/15/19 04:45 04/15/19 04/15/19 04:45 04:45 WBC 3.8 L RBC 3.14 L Hgb 8.8 L Hct 26.7 L MCV 85 MCH 27.9 MCHC 32.8 RDW 30.4 H Plt Count 99 L Sodium 137.7 Potassium 4.6 Chloride 104 Carbon Dioxide 22 Anion Gap 12 BUN 43 H Creatinine 1.33 H Est GFR ( Amer) 48 L Glucose 62 L Calcium 8.6 Total Bilirubin 2.4 H AST 23 Alkaline Phosphatase 101 Total Protein 6.4 Albumin 2.9 L Impressions: KUB X-Ray 04/07/19 00:28 IMPRESSION: The tip and side hole of the enteric tube project within the gastric lumen. Chest CT 04/08/19 00:00 IMPRESSION: CARDIOMEGALY. LARGE BILATERAL PLEURAL EFFUSIONS WITH COMPRESSIVE ATELECTASIS IN THE LUNG BASES. Head CT 04/08/19 00:00 IMPRESSION: NORMAL BRAIN CT WITHOUT CONTRAST. CHRONIC RIGHT MAXILLARY SINUS DISEASE. EVIDENCE OF ACUTE STROKE: NO. Abdomen Ultrasound 04/10/19 00:00 IMPRESSION: PATENT TIPS SHUNT. VELOCITIES ABOVE. Thoracentesis Ultrasound 04/15/19 00:00 IMPRESSION: SUCCESSFUL THORACENTESIS USING ULTRASOUND GUIDANCE. Chest X-Ray 04/15/19 11:15 IMPRESSION: Trace right apical pneumothorax marked with arrows. Follow-up film in 2 hours will be obtained. Assessment and Plan - Diagnosis (1) 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 hypertension Is this a current diagnosis for this admission?: Yes Plan: Severe pulmonary hypertension. 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 Data Review: 1. RHC at [facility] 02/2019 [Dr. Rodarte Pulm HTN specialist]: RV 61/18, MPAP 40, PCWP 23 [I believe elevated PCW must have been due to RV volume/pressure overload causing septum deviation compromising LV output as she was in Pulm HTN crisis at that time and not that left sided induced PHTN], Pulm VR 3.5. No vasoreactivity test done as not indicated for portopulmonary HTN. 2. TTE 04/01/2019: LVEF of 65% with normal LV systolic and diastolic function, no significant abnormalities with AV and MV, but RVSP > 67 mmHg, moderate RV dilation and RV systolic dysfunction 3. TTE 04/11/2019 for reassessment of pulm pressures: EF 55-60%, RV volume/press ure overload w/ moderate dilation, mild RV systolic dysfunction, RVSP 65 mmHg and essentially normal LV function. Continue spironolactone. I held IV Lasix today due to mild bump in creatinine and hypotension in the morning after thoracentesis. Will resume tomorrow at 20 mg p.o. twice daily. continue trial of sildenafil 20 mg 3 times daily Avoid CCBs and beta-blockers. Follow-up with pulmonary hypertension specialist Dr. 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 s/p repeat right-sided thoracentesis 04/10/2019 yielding 1 L of transudative fluid. s/p repeat right-sided thoracentesis 04/15/2019 yielding 800cc Frequent incentive spirometer after thoras for remnant compressive atelectasis Ultimately, her effusions especially on the right side will continue to reaccumulate and she will need repeated thoracentesis every 2 to 3 weeks as the ONLY fix for this is liver transplantation and her hepatic hydrothorax has been refractory to TIPS. TIPS was evaluated with abdominal ultrasound Dopplers which shows patency and normal TIPS velocities. Chest tube/pleural catheters are NOT indicated in this patient population as it would lead to significant dehydration, electrolyte derangements and renal failure. (3) Pneumothorax, right Is this a current diagnosis for this admission?: Yes Plan: Secondary to thoracentesis. Discussed with the radiologist who states that it stable and only very trace less than 5 mm in size. No need for chest tube at this time. I will increase patient's nasal cannula to 6 L to help with resolution of the pneumothorax. Patient is stable. (4) Acute respiratory failure with hypoxia Is this a current diagnosis for this admission?: Yes Plan: Secondary to hepatic hydrothorax and pulmonary hypertension. Given the chronic and unfixable nature of these 2 conditions in the absence of liver transplantation for which patient does not currently meet candidacy for, I believe this will be a chronic issue for this patient in the absence of liver transplantation. She had been requiring 2-3 L of oxygen. --> Attempt to wean again tomorrow since pleural effusions look significantly improved. (5) Primary biliary cirrhosis Is this a current diagnosis for this admission?: Yes Plan: Chronic liver failure. Has had cirrhosis for over 5 years. Continue with salt restriction, ursodiol. Patient was deemed by Hepatology at [facility] to not be a surgical candidate at that time given severe pulmonary hypertension with PVR of 3.5 and poor functional status and palliative was recommended. However they also said it could be revisited if patient's pulmonary HTN and functional status improved Patient and still opting for optimization of pulmonary hypertension of functional status in order to revisit candidacy for liver transplantation. Bren with palliative care discussion with family today and I was informed by family declines palliation/hospice at this time. (6) Hepatic encephalopathy Is this a current diagnosis for this admission?: Yes Plan: Resolved. Continue rifamixin and lactulose 40 mg bid. Monitor for dehydration. (7) Hypotension Qualifiers: Hypotension type: other hypotension type Qualified Code(s): I95.89 - Other hypotension Is this a current diagnosis for this admission?: Yes Plan: Secondary to cirrhosis. Continue midodrine 10mg tid. Cautious diuresis. (8) Acute on chronic kidney failure Qualifiers: Chronic kidney disease stage: stage 3 (moderate) Is this a current diagnosis for this admission?: Yes Plan: Improved significantly as compared to presentation. Mild bump noted today. Continue to monitor BMP and cautious diuresis. (9) Diabetes mellitus Qualifiers: Diabetes mellitus type: other specified (including BALJEET) Is this a current diagnosis for this admission?: Yes Plan: Lantus dose adjusted due to a.m. hypoglycemia. Continue sliding scale. (10) Anemia Qualifiers: Anemia type: other cause Other causes of anemia: chronic disease, other Qualified Code(s): D63.8 - Anemia in other chronic diseases classified elsewhere Is this a current diagnosis for this admission?: Yes Plan: Likely secondary to chronic disease though with some underlying iron deficiency. Continue iron sulfate. Hb holding steady. (11) Urinary tract infection Qualifiers: Urinary tract infection type: acute cystitis Hematuria presence: with hematuria Qualified Code(s): N30.01 - Acute cystitis with hematuria Is this a current diagnosis for this admission?: Yes Plan: Resolved. Enterococcus. Completed 6 days of ceftriaxone on 04/12. (12) Physical debility Is this a current diagnosis for this admission?: Yes Plan: Plan for snf upon d/c. Continue with PT at least 3 days a week while inpatient. (13) Back pain Qualifiers: Back pain location: low back pain Chronicity: acute Back pain laterality: bilateral Sciatica presence: without sciatica Qualified Code(s): M54.5 - Low back pain Is this a current diagnosis for this admission?: Yes - Time Time Spent with patient: 15-24 minutes
[2019-04-15] MEDS ORDERED: INSULIN GLARGINE,HUM.REC.ANLOG 1,000 UNIT/10 ML VIAL SUBCUT SCH (22:00)
[2019-04-15] MEDS: ONDANSETRON HCL INJ/PF 4 MG/2 ML SDV IV PRN (23:28)
[2019-04-16] MEDS: LEVOTHYROXINE SODIUM 0.15 MG TABLET PO SCH (05:37)
[2019-04-16 05:48] LABS: ANION GAP 11 (5-19); BLOOD UREA NITROGEN 46 mg/dL (7-20); CALCIUM 8.7 mg/dL (8.4-10.2); CARBON DIOXIDE 23 mmol/L (22-30); CHLORIDE 105 mmol/L (98-107); POTASSIUM 4.7 mmol/L (3.6-5.0)
[2019-04-16] MEDS: DEXTROSE 50%-WATER 25 GM/50 ML DISP.SYRIN IV PRN (05:55)
[2019-04-16 06:03] LABS: GLUCOSE 35 mg/dL (75-110)
[2019-04-16] MEDS: INSULIN LISPRO 100 UNIT/ML 3 ML VIAL SUBCUT SCH ×3 (07:46→16:42)
[2019-04-16] MEDS: SILDENAFIL CITRATE 20 MG TABLET PO SCH ×3 (07:59→16:42)
[2019-04-16] MEDS: FUROSEMIDE 20 MG TABLET PO SCH ×2 (09:35→17:13)
[2019-04-16] MEDS: SPIRONOLACTONE 25 MG TABLET PO SCH ×2 (09:35→17:13)
[2019-04-16] MEDS: FERROUS SULFATE 325 MG TABLET PO SCH (09:35)
[2019-04-16] MEDS: URSODIOL 300 MG CAPSULE PO SCH ×2 (09:35→21:31)
[2019-04-16] MEDS: MIDODRINE HCL 5 MG TABLET PO SCH ×3 (09:35→17:13)
[2019-04-16] MEDS: LACTULOSE SYRUP 20 GM/30 ML UDCUP PO SCH ×2 (09:36→09:38)
[2019-04-16] MEDS ORDERED: INSULIN GLARGINE,HUM.REC.ANLOG 1,000 UNIT/10 ML VIAL SUBCUT SCH (10:00)
[2019-04-16] MEDS ORDERED: INSULIN GLARGINE,HUM.REC.ANLOG 1,000 UNIT/10 ML VIAL SUBCUT ONE (10:00)
--- NOTE | 2019-04-16 17:16 | PDOC PROGRESS REPORT ---
Subjective Progress Note for:: 04/16/19 Subjective:: The patient is resting in bed. She is eating her supper. Her is at the bedside. The patient has refused some lactulose doses. The was concerned and so we did review this. In addition she has been having widely fluctuating Accu-Cheks with significant hypoglycemic values. Reason For Visit: ACUTE RENAL FAILURE,PRIMARY BILIARY CHOLANGITIS, Physical Exam Vital Signs: Temp Pulse Resp BP Pulse Ox 97.5 F 62 18 102/40 L 97 04/16/19 16:00 04/16/19 16:00 04/16/19 16:00 04/16/19 16:00 04/16/19 16:00 Intake & Output 04/15/19 04/16/19 04/17/19 06:59 06:59 06:59 Intake Total 380 550 240 Balance 380 550 240 Weight 56.6 kg 55.8 kg General appearance: PRESENT: no acute distress, cooperative, well-developed Head exam: PRESENT: atraumatic, normocephalic Eye exam: PRESENT: conjunctiva pale, scleral icterus Mouth exam: PRESENT: moist, tongue midline Respiratory exam: PRESENT: rales, symmetrical, unlabored - Only. ABSENT: rhonchi, tachypnea, wheezes Cardiovascular exam: PRESENT: RRR, +S1, +S2 GI/Abdominal exam: PRESENT: distended, normal bowel sounds, soft. ABSENT: tenderness Rectal exam: PRESENT: deferred Extremities exam: ABSENT: pedal edema Neurological exam: PRESENT: alert, awake, oriented to person, oriented to place, oriented to situation Psychiatric exam: PRESENT: flat affect. ABSENT: agitated, anxious Skin exam: PRESENT: jaundice Results Laboratory Results: 04/15/19 04:45 04/16/19 04:40 04/16/19 04:40 Sodium 138.6 Potassium 4.7 Chloride 105 Carbon Dioxide 23 Anion Gap 11 BUN 46 H Creatinine 1.36 H Est GFR ( Amer) 47 L Glucose 35 L* Calcium 8.7 Impressions: KUB X-Ray 04/07/19 00:28 IMPRESSION: The tip and side hole of the enteric tube project within the gastr ic lumen. Chest CT 04/08/19 00:00 IMPRESSION: CARDIOMEGALY. LARGE BILATERAL PLEURAL EFFUSIONS WITH COMPRESSIVE ATELECTASIS IN THE LUNG BASES. Head CT 04/08/19 00:00 IMPRESSION: NORMAL BRAIN CT WITHOUT CONTRAST. CHRONIC RIGHT MAXILLARY SINUS DISEASE. EVIDENCE OF ACUTE STROKE: NO. Abdomen Ultrasound 04/10/19 00:00 IMPRESSION: PATENT TIPS SHUNT. VELOCITIES ABOVE. Thoracentesis Ultrasound 04/15/19 00:00 IMPRESSION: SUCCESSFUL THORACENTESIS USING ULTRASOUND GUIDANCE. Chest X-Ray 04/15/19 11:15 IMPRESSION: Trace right apical pneumothorax marked with arrows. Follow-up film in 2 hours will be obtained. Assessment and Plan - Diagnosis (1) 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 hypertension Is this a current diagnosis for this admission?: Yes Plan: Severe pulmonary hypertension. Likely Group 1 secondary to Portopulmonary hyper tension. Data Review: 1. RHC at [facility] 02/2019 [Dr. Rodarte Pulm HTN specialist]: RV 61/18, MPAP 40, PCWP 23 [I believe elevated PCW must have been due to RV volume/pressure overload causing septum deviation compromising LV output as she was in Pulm HTN crisis at that time and not that left sided induced PHTN], Pulm VR 3.5. No vasoreactivity test done as not indicated for portopulmonary HTN. 2. TTE 04/01/2019: LVEF of 65% with normal LV systolic and diastolic function, no significant abnormalities with AV and MV, but RVSP > 67 mmHg, moderate RV dilation and RV systolic dysfunction 3. TTE 04/11/2019 for reassessment of pulm pressures: EF 55-60%, RV volume/pressure overload w/ moderate dilation, mild RV systolic dysfunction, RVSP 65 mmHg and essentially normal LV function. Continue spironolactone. I held IV Lasix today due to mild bump in creatinine and hypotension in the morning after thoracentesis. Will resume tomorrow at 20 mg p.o. twice daily. continue trial of sildenafil 20 mg 3 times daily Avoid CCBs and beta-blockers. Follow-up with pulmonary hypertension specialist Dr. Rodarte at [facility] 04/16/2019-continue trial of sildenafil. 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 s/p repeat right-sided thoracentesis 04/10/2019 yielding 1 L of transudative fluid. s/p repeat right-sided thoracentesis 04/15/2019 yielding 800cc Frequent incentive spirometer after thoras for remnant compressive atelectasis Ultimately, her effusions especially on the right side will continue to reaccumulate and she will need repeated thoracentesis every 2 to 3 weeks as the ONLY fix for this is liver transplantation and her hepatic hydrothorax has been refractory to TIPS. TIPS was evaluated with abdominal ultrasound Dopplers which shows patency and normal TIPS velocities. Chest tube/pleural catheters are NOT indicated in this patient population as it would lead to significant dehydration, electrolyte derangements and renal failure. 04/16/2019-thoracentesis from 04/15/2019 had small apical pneumothorax. We will monitor by chest x-ray. As noted above the patient may need recurrent t horacenteses as other treatments mentioned in our now ineffective or contraindicated.. (3) Pneumothorax, right Is this a current diagnosis for this admission?: Yes Plan: Secondary to thoracentesis. Discussed with the radiologist who states that it stable and only very trace less than 5 mm in size. No need for chest tube at this time. I will increase patient's nasal cannula to 6 L to help with resolution of the pneumothorax. Patient is stable. 04/16/2019-remains on 6 L nasal cannula. Will repeat chest x-ray tomorrow. Will attempt to slowly decrease oxygen if tolerated. (4) Acute respiratory failure with hypoxia Is this a current diagnosis for this admission?: Yes Plan: Secondary to hepatic hydrothorax and pulmonary hypertension. Given the chronic and unfixable nature of these 2 conditions in the absence of liver transplantation for which patient does not currently meet candidacy for, I believe this will be a chronic issue for this patient in the absence of liver transplantation. She had been requiring 2-3 L of oxygen. --> Attempt to wean again tomorrow since pleural effusions look significantly improved. 04/16/2019-remains on 6 L nasal cannula but will begin to taper tomorrow. (5) Primary biliary cirrhosis Is this a current diagnosis for this admission?: Yes Plan: Chronic liver failure. Has had cirrhosis for over 5 years. Continue with salt restriction, ursodiol. Patient was deemed by Hepatology at [facility] to not be a surgical candidate at that time given severe pulmonary hypertension with PVR of 3.5 and poor functional status and palliative was recommended. However they also said it could be revisited if patient's pulmonary HTN and functional status improved Patient and still opting for optimization of pulmonary hypertension of functional status in order to revisit candidacy for liver transplantation. Bren with palliative care discussion with family today and I was informed by family declines palliation/hospice at this time. 04/16/2019-as the family wishes to continue to pursue improvements that will qualify her for a liver transplant I have suggested that they consider placement in a long-term acute care hospital due to the complexity of her illness and need for close monitoring. At her age and with her multiple comorbidities, being accepted for the transplant program is highly unlikely. As noted above they have declined options for hospice/palliative care (6) Acute on chronic kidney failure Qualifiers: Chronic kidney disease stage: stage 3 (moderate) Is this a current diagnosis for this admission?: Yes Plan: Improved significantly as compared to presentation. Mild bump noted today. Continue to monitor BMP and cautious diuresis. 04/16/2019-renal function is not significantly changed from yesterday. Continue current diuresis plan while monitoring renal function as well as blood pressure (7) Back pain Qualifiers: Back pain location: low back pain Chronicity: acute Back pain laterality: bilateral Sciatica presence: without sciatica Qualified Code(s): M54.5 - Low back pain Is this a current diagnosis for this admission?: Yes Plan: Involving bilateral paraspinal muscle regions. Improved To 1919-continue current treatment plan (8) Diabetes mellitus Qualifiers: Diabetes mellitus type: other specified (including BALJEET) Is this a current diagnosis for this admission?: Yes Plan: Extremely labile blood glucoses have been noted over the last 2 days. There does not appear to be a specific pattern. I gave a reduced dose of Lantus earlier today. I have changed the Lantus dosing and if her appetite remains stable this should level out her Accu-Cheks. We will continue to utilize sliding scale and adjust insulin based on her Accu-Cheks (9) Hypotension Qualifiers: Hypotension type: other hypotension type Qualified Code(s): I95.89 - Other hypotension Is this a current diagnosis for this admission?: Yes Plan: Secondary to cirrhosis. Continue midodrine 10mg tid. Cautious diuresis. 04/16/2019-current regimen appears to be working. The midodrine is allowing ongoing diuresis. (10) Physical debility Is this a current diagnosis for this admission?: Yes Plan: Plan for snf upon d/c. Continue with PT at least 3 days a week while inpatient. Extremely debilitated due to her current illness with multiple comorbidities. As noted above I did discuss the possibility of long-term acute care hospital placement due to the complexity of her illness and the fact that without close monitoring and active involvement in her care she could rapidly decline. (11) Anemia Qualifiers: Anemia type: other cause Other causes of anemia: chronic disease, other Qualified Code(s): D63.8 - Anemia in other chronic diseases classified elsewhere Is this a current diagnosis for this admission?: Yes Plan: Likely secondary to chronic disease though with some underlying iron deficiency. Continue iron sulfate. Hb holding steady. 04/16/2019-continue iron therapy. Hemoglobin is improved. We will continue to monitor. (12) Hepatic encephalopathy Is this a current diagnosis for this admission?: Yes Plan: Resolved. Continue rifamixin and lactulose 40 mg bid. Monitor for dehydration. 04/16/2019-the patient has been refusing lactulose. After a long discussion with the patient and her were going to try 40 mg once daily then continue the rifamixin. If there is any question or observed change in mental status we can always recheck an ammonia level. (13) Urinary tract infection Qualifiers: Urinary tract infection type: acute cystitis Hematuria presence: with hematuria Qualified Code(s): N30.01 - Acute cystitis with hematuria Is this a current diagnosis for this admission?: Yes Plan: Resolved. Enterococcus. Completed 6 days of ceftriaxone on 04/12. - Time Time Spent with patient: 15-24 minutes Medications reviewed and adjusted accordingly: Yes Anticipated discharge: Other - Possible LTAC placement
[2019-04-16] MEDS: INSULIN GLARGINE,HUM.REC.ANLOG 1,000 UNIT/10 ML VIAL SUBCUT SCH (21:51)
[2019-04-17] MEDS: LEVOTHYROXINE SODIUM 0.15 MG TABLET PO SCH (06:20)
[2019-04-17 06:56] LABS: MEAN CORPUSCULAR HEMOGLOBIN 28.1 pg (27.0-33.4); MEAN CORPUSCULAR HGB CONC 32.3 g/dL (32.0-36.0); MEAN CORPUSCULAR VOLUME 87 fl (80-97); PLATELET COUNT 104 10^3/uL (150-450); RED BLOOD COUNT 3.22 10^6/uL (3.72-5.28); RED CELL DISTRIBUTION WIDTH 30.5 % (11.5-14.0); WHITE BLOOD COUNT 4.2 10^3/uL (4.0-10.5)
[2019-04-17 07:06] LABS: ALKALINE PHOSPHATASE 110 U/L (38-126); ANION GAP 13 (5-19); ASPARTATE AMINO TRANSFERASE 25 U/L (14-36); BILIRUBIN,DIRECT 2.1 mg/dL (0.0-0.4); BILIRUBIN,TOTAL 2.8 mg/dL (0.2-1.3); BLOOD UREA NITROGEN 50 mg/dL (7-20); CALCIUM 8.8 mg/dL (8.4-10.2); CARBON DIOXIDE 21 mmol/L (22-30); CHLORIDE 103 mmol/L (98-107); GLUCOSE 191 mg/dL (75-110); POTASSIUM 5.1 mmol/L (3.6-5.0); TOTAL PROTEIN 6.6 g/dL (6.3-8.2)
[2019-04-17] MEDS: INSULIN LISPRO 100 UNIT/ML 3 ML VIAL SUBCUT SCH ×3 (07:45→16:37)
[2019-04-17] MEDS: SILDENAFIL CITRATE 20 MG TABLET PO SCH ×3 (07:46→16:37)
--- NOTE | 2019-04-17 09:22 | RADIOLOGY REPORT (SQ) ---
EXAM DESCRIPTION: CHEST 2 VIEWS COMPLETED DATE/TIME: 04/17/2019 8:20 am REASON FOR STUDY: Follow-up pneumothorax COMPARISON: 04/15/2019 NUMBER OF VIEWS: Two view TECHNIQUE: Frontal and lateral radiographic images of the chest acquired. LIMITATIONS: None. FINDINGS: LUNGS AND PLEURA: Small pleural effusions not significantly changed. No pneumothorax. MEDIASTINUM AND HILAR STRUCTURES: Stable heart size and mediastinal structures. HEART AND VASCULAR STRUCTURES: Stable appearance. BONES: No acute findings. HARDWARE: None in the chest. OTHER: No other significant finding. IMPRESSION: No pneumothorax. TECHNICAL DOCUMENTATION: JOB ID: [id number] 2010 [employer]- All Rights Reserved Reading location - IP/workstation name: [email or web address]
[2019-04-17] MEDS ORDERED: INSULIN GLARGINE,HUM.REC.ANLOG 1,000 UNIT/10 ML VIAL SUBCUT SCH (10:00)
[2019-04-17] MEDS: MINERAL OIL/PETROLATUM,WHITE CREAM 114 GM TP SCH ×2 (10:15→17:28)
[2019-04-17] MEDS: FUROSEMIDE 20 MG TABLET PO SCH (10:21)
[2019-04-17] MEDS: FERROUS SULFATE 325 MG TABLET PO SCH (10:21)
[2019-04-17] MEDS: SPIRONOLACTONE 25 MG TABLET PO SCH ×2 (10:21→17:27)
[2019-04-17] MEDS: URSODIOL 300 MG CAPSULE PO SCH ×2 (10:21→21:49)
[2019-04-17] MEDS: MIDODRINE HCL 5 MG TABLET PO SCH ×3 (10:21→17:27)
[2019-04-17] MEDS: LACTULOSE SYRUP 20 GM/30 ML UDCUP PO SCH (10:22)
--- NOTE | 2019-04-17 14:41 | PDOC PROGRESS REPORT ---
Subjective Progress Note for:: 04/17/19 Subjective:: The patient was sleeping but awakens easily. She is in good spirits today. She has no complaints. Reason For Visit: ACUTE RENAL FAILURE,PRIMARY BILIARY CHOLANGITIS, Physical Exam Vital Signs: Temp Pulse Resp BP Pulse Ox 97.3 F 63 12 112/41 L 100 04/17/19 11:57 04/17/19 14:00 04/17/19 11:57 04/17/19 11:57 04/17/19 11:57 Intake & Output 04/16/19 04/17/19 04/18/19 06:59 06:59 06:59 Intake Total 550 480 Balance 550 480 Weight 55.8 kg 55.9 kg General appearance: PRESENT: no acute distress, cooperative, well-developed Head exam: PRESENT: atraumatic, normocephalic Eye exam: PRESENT: conjunctiva pink, scleral icterus Ear exam: PRESENT: normal external ear exam. ABSENT: bleeding, drainage Mouth exam: PRESENT: dry mucosa, tongue midline Respiratory exam: PRESENT: rales - At bases, symmetrical, unlabored. ABSENT: prolonged expiratory phas, tachypnea, wheezes Cardiovascular exam: PRESENT: RRR, +S1, +S2 GI/Abdominal exam: PRESENT: distended, normal bowel sounds, soft. ABSENT: mass, tenderness Rectal exam: PRESENT: deferred Musculoskeletal exam: PRESENT: ambulatory, other - Decreased muscle mass Neurological exam: PRESENT: alert, awake, oriented to person, oriented to place, oriented to situation Psychiatric exam: PRESENT: appropriate affect. ABSENT: agitated, anxious Skin exam: PRESENT: jaundice Results Laboratory Results: 04/17/19 05:32 04/17/19 05:32 04/17/19 04/17/19 05:32 05:32 WBC 4.2 RBC 3.22 L Hgb 9.0 L Hct 28.0 L MCV 87 MCH 28.1 MCHC 32.3 RDW 30.5 H Plt Count 104 L Sodium 137.3 Potassium 5.1 H Chloride 103 Carbon Dioxide 21 L Anion Gap 13 BUN 50 H Creatinine 1.60 H Est GFR ( Amer) 39 L Glucose 191 H Calcium 8.8 Magnesium 1.8 Total Bilirubin 2.8 H AST 25 Alkaline Phosphatase 110 Total Protein 6.6 Albumin 3.0 L Impressions: KUB X-Ray 04/07/19 00:28 IMPRESSION: The tip and side hole of the enteric tube project within the gastric lumen. Chest CT 04/08/19 00:00 IMPRESSION: CARDIOMEGALY. LARGE BILATERAL PLEURAL EFFUSIONS WITH COMPRESSIVE ATELECTASIS IN THE LUNG BASES. Head CT 04/08/19 00:00 IMPRESSION: NORMAL BRAIN CT WITHOUT CONTRAST. CHRONIC RIGHT MAXILLARY SINUS DISEASE. EVIDENCE OF ACUTE STROKE: NO. Abdomen Ultrasound 04/10/19 00:00 IMPRESSION: PATENT TIPS SHUNT. VELOCITIES ABOVE. Thoracentesis Ultrasound 04/15/19 00:00 IMPRESSION: SUCCESSFUL THORACENTESIS USING ULTRASOUND GUIDANCE. Chest X-Ray 04/17/19 08:00 IMPRESSION: No pneumothorax. Assessment and Plan - Diagnosis (1) 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 hypertension Is this a current diagnosis for this admission?: Yes Plan: Severe pulmonary hypertension. 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 Data Review: 1. [facility] at [facility] 02/2019 [Dr. Rodarte Pulm HTN specialist]: RV 61/18, MPAP 40, PCWP 23 [I believe elevated PCW must have been due to RV volume/pressure overload causing septum deviation compromising LV output as she was in Pulm HTN crisis at that time and not that left sided induced PHTN], Pulm VR 3.5. No vasoreactivity test done as not indicated for portopulmonary HTN. 2. TTE 04/01/2019: LVEF of 65% with normal LV systolic and diastolic function, no significant abnormalities with AV and MV, but RVSP > 67 mmHg, moderate RV dilation and RV systolic dysfunction 3. TTE 04/11/2019 for reassessment of pulm pressures: EF 55-60%, RV volume/pressure overload w/ moderate dilation, mild RV systolic dysfunction, RVSP 65 mmHg and essentially normal LV function. Continue spironolactone. I held IV Lasix today due to mild bump in creatinine and hypotension in the morning after thoracentesis. Will resume tomorrow at 20 mg p.o. twice daily. continue trial of sildenafil 20 mg 3 times daily Avoid CCBs and beta-blockers. Follow-up with pulmonary hypertension specialist Dr. Rodarte at [facility] 04/16/2019-continue trial of sildenafil. 04/17/2019-BUN and creatinine are slightly elevated. We will decrease the furosemide slightly. Continue to monitor intake and output. Continue sildenafil. 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 s/p repeat right-sided thoracentesis 04/10/2019 yielding 1 L of transudative fluid. s/p repeat right-sided thoracentesis 04/15/2019 yielding 800cc Frequent incentive spirometer after thoras for remnant compressive atelectasis Ultimately, her effusions especially on the right side will continue to reaccumulate and she will need repeated thoracentesis every 2 to 3 weeks as the ONLY fix for this is liver transplantation and her hepatic hydrothorax has been refractory to TIPS. TIPS was evaluated with abdominal ultrasound Dopplers which shows patency and normal TIPS velocities. Chest tube/pleural catheters are NOT indicated in this patient population as it would lead to significant dehydration, electrolyte derangements and renal failure. 04/16/2019-thoracentesis from 04/15/2019 had small apical pneumothorax. We will monitor by chest x-ray. As noted above the patient may need recurrent thoracenteses as other treatments mentioned in our now ineffective or contraindicated.. 04/17/2019-repeat chest x-ray to follow-up on pneumothorax reveals no pneumotho rax. There is no significant accumulation of fluid at this time. (3) Pneumothorax, right Is this a current diagnosis for this admission?: Yes Plan: Secondary to thoracentesis. Discussed with the radiologist who states that it stable and only very trace less than 5 mm in size. No need for chest tube at this time. I will increase patient's nasal cannula to 6 L to help with resolution of the pneumothorax. Patient is stable. 04/16/2019-remains on 6 L nasal cannula. Will repeat chest x-ray tomorrow. Will attempt to slowly decrease oxygen if tolerated. 04/17/2019-pneumothorax has resolved. (4) Acute respiratory failure with hypoxia Is this a current diagnosis for this admission?: Yes Plan: Secondary to hepatic hydrothorax and pulmonary hypertension. Given the chronic and unfixable nature of these 2 conditions in the absence of liver transplantation for which patient does not currently meet candidacy for, I believe this will be a chronic issue for this patient in the absence of liver transplantation. She had been requiring 2-3 L of oxygen. --> Attempt to wean again tomorrow since pleural effusions look significantly improved. 04/16/2019-remains on 6 L nasal cannula but will begin to taper tomorrow. 04/17/2019-Down to 5 L nasal cannula and still maintaining saturation greater than 90% (5) Primary biliary cirrhosis Is this a current diagnosis for this admission?: Yes Plan: Chronic liver failure. Has had cirrhosis for over 5 years. Continue with salt restriction, ursodiol. Patient was deemed by Hepatology at [facility] to not be a surgical candidate at that time given severe pulmonary hypertension with PVR of 3.5 and poor functional status and palliative was recommended. However they also said it could be revisited if patient's pulmonary HTN and functional status improved Patient and still opting for optimization of pulmonary hypertension of functional status in order to revisit candidacy for liver transplantation. Bren with palliative care discussion with family today and I was informed by family declines palliation/hospice at this time. 04/16/2019-as the family wishes to continue to pursue improvements that will qualify her for a liver transplant I have suggested that they consider placement in a long-term acute care hospital due to the complexity of her illness and need for close monitoring. At her age and with her multiple comorbidities, being ac cepted for the transplant program is highly unlikely. As noted above they have declined options for hospice/palliative care 04/17/2019-still investigating LTAC possibilities (6) Acute on chronic kidney failure Qualifiers: Chronic kidney disease stage: stage 3 (moderate) Is this a current diagnosis for this admission?: Yes Plan: Improved significantly as compared to presentation. Mild bump noted today. Continue to monitor BMP and cautious diuresis. 04/16/2019-renal function is not significantly changed from yesterday. Continue current diuresis plan while monitoring renal function as well as blood pressure 04/17/2019-as noted above there was a slight bump in the BUN and creatinine so I decreased the furosemide by 25%. We will continue to monitor renal function (7) Back pain Qualifiers: Back pain location: low back pain Chronicity: acute Back pain laterality: bilateral Sciatica presence: without sciatica Qualified Code(s): M54.5 - Low back pain Is this a current diagnosis for this admission?: Yes Plan: Involving bilateral paraspinal muscle regions. Improved 04/16/2019-continue current treatment plan 04/17/2019-as above (8) Diabetes mellitus Qualifiers: Diabetes mellitus type: other specified (including BALJEET) Is this a current diagnosis for this admission?: Yes Plan: 04/16/2019-extremely labile blood glucoses have been noted over the last 2 days. There does not appear to be a specific pattern. I gave a reduced dose of Lantus earlier today. I have changed the Lantus dosing and if her appetite remains stable this should level out her Accu-Cheks. We will continue to utilize sliding scale and adjust insulin based on her Accu-Cheks 04/17/2019-the Accu-Cheks are now too high. I will increase the morning and evening Lantus by 2 units each and continue to monitor Accu-Cheks. Adjust Lantus based on sliding scale requirements and Accu-Chek levels. (9) Hypotension Qualifiers: Hypotension type: other hypotension type Qualified Code(s): I95.89 - Other hypotension Is this a current diagnosis for this admission?: Yes Plan: Secondary to cirrhosis. Continue midodrine 10mg tid. Cautious diuresis. 04/16/2019-current regimen appears to be working. The midodrine is allowing ongoing diuresis. 04/17/2019-I did decrease the furosemide due to the change in BUN and creatinine. Will monitor. It may be able to reduce the midodrine slightly. (10) Physical debility Is this a current diagnosis for this admission?: Yes Plan: Plan for snf upon d/c. Continue with PT at least 3 days a week while inpatient. 04/16/2019-extremely debilitated due to her current illness with multiple co morbidities. As noted above I did discuss the possibility of long-term acute care hospital placement due to the complexity of her illness and the fact that without close monitoring and active involvement in her care she could rapidly decline. 04/17/2019-the patient made excellent progress with physical therapy yesterday. Continue therapy at this time. (11) Anemia Qualifiers: Anemia type: other cause Other causes of anemia: chronic disease, other Qualified Code(s): D63.8 - Anemia in other chronic diseases classified elsewhere Is this a current diagnosis for this admission?: Yes Plan: Likely secondary to chronic disease though with some underlying iron deficiency. Continue iron sulfate. Hb holding steady. 04/16/2019-continue iron therapy. Hemoglobin is improved. We will continue to monitor. 04/17/2019-continue to monitor (12) Hepatic encephalopathy Is this a current diagnosis for this admission?: Yes Plan: Resolved. Continue rifamixin and lactulose 40 mg bid. Monitor for dehydration. 04/16/2019-the patient has been refusing lactulose. After a long discussion with the patient and her were going to try 40 mg once daily then continue the rifamixin. If there is any question or observed change in mental status we can always recheck an ammonia level. 04/17/2019-the patient seemed quite clear today. She appears to be tolerating the lower dose of lactulose. (13) Urinary tract infection Qualifiers: Urinary tract infection type: acute cystitis Hematuria presence: with hematuria Qualified Code(s): N30.01 - Acute cystitis with hematuria Is this a current diagnosis for this admission?: Yes Plan: Resolved. Enterococcus. Completed 6 days of ceftriaxone on 04/12. (14) Hyperkalemia Is this a current diagnosis for this admission?: Yes Plan: 04/17/2019-the potassium was slightly elevated. This could be due to the decreased dose of lactulose. I will recheck the potassium tomorrow and treat accordingly. - Time Time Spent with patient: 15-24 minutes Medications reviewed and adjusted accordingly: Yes
[2019-04-17] MEDS: INSULIN GLARGINE,HUM.REC.ANLOG 1,000 UNIT/10 ML VIAL SUBCUT SCH ×2 (21:51→22:17)
[2019-04-17] MEDS ORDERED: INSULIN GLARGINE,HUM.REC.ANLOG 1,000 UNIT/10 ML VIAL (PYX) SUBCUT PRN (22:03)
[2019-04-18] MEDS: LEVOTHYROXINE SODIUM 0.15 MG TABLET PO SCH (06:04)
[2019-04-18 07:17] LABS: ANION GAP 12 (5-19); BLOOD UREA NITROGEN 52 mg/dL (7-20); CALCIUM 8.8 mg/dL (8.4-10.2); CARBON DIOXIDE 24 mmol/L (22-30); CHLORIDE 103 mmol/L (98-107); GLUCOSE 92 mg/dL (75-110); POTASSIUM 4.5 mmol/L (3.6-5.0)
[2019-04-18] MEDS: INSULIN LISPRO 100 UNIT/ML 3 ML VIAL SUBCUT SCH ×3 (07:25→16:29)
[2019-04-18] MEDS: FUROSEMIDE 20 MG TABLET PO SCH ×4 (08:33→17:38)
[2019-04-18] MEDS: SILDENAFIL CITRATE 20 MG TABLET PO SCH ×3 (08:34→16:30)
[2019-04-18] MEDS ORDERED: INSULIN GLARGINE,HUM.REC.ANLOG 1,000 UNIT/10 ML VIAL SUBCUT SCH (10:00)
[2019-04-18] MEDS: MIDODRINE HCL 5 MG TABLET PO SCH ×3 (10:31→17:37)
[2019-04-18] MEDS: LACTULOSE SYRUP 20 GM/30 ML UDCUP PO SCH (10:31)
[2019-04-18] MEDS: SPIRONOLACTONE 25 MG TABLET PO SCH ×2 (10:31→17:37)
[2019-04-18] MEDS: FERROUS SULFATE 325 MG TABLET PO SCH (10:31)
[2019-04-18] MEDS: URSODIOL 300 MG CAPSULE PO SCH ×2 (10:31→21:46)
[2019-04-18] MEDS: MINERAL OIL/PETROLATUM,WHITE CREAM 114 GM TP SCH ×2 (10:38→17:42)
--- NOTE | 2019-04-18 12:55 | PDOC TRANSFER SUMMARY ---
General Admission Date/PCP: 03/27/19 21:07 RUTH SHELDON Admission Date: 03/27/19 Transfer Date: 04/18/19 Accepting Facility: Other (Comments) - Long-term acute [facility] in [facility] Resuscitation Status: Full Code - Transfer Diagnosis (1) 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 hypertension Is this a current diagnosis for this admission?: Yes (2) Bilateral pleural effusion Is this a current diagnosis for this admission?: Yes (3) Pneumothorax, right Is this a current diagnosis for this admission?: Yes (4) Acute respiratory failure with hypoxia Is this a current diagnosis for this admission?: Yes (5) Primary biliary cirrhosis Is this a current diagnosis for this admission?: Yes (6) Acute on chronic kidney failure Is this a current diagnosis for this admission?: Yes (7) Back pain Is this a current diagnosis for this admission?: Yes (8) Diabetes mellitus Is this a current diagnosis for this admission?: Yes (9) Hypotension Is this a current diagnosis for this admission?: Yes (10) Physical debility Is this a current diagnosis for this admission?: Yes (11) Anemia Is this a current diagnosis for this admission?: Yes (12) Hepatic encephalopathy Is this a current diagnosis for this admission?: Yes (13) Urinary tract infection Is this a current diagnosis for this admission?: Yes (14) Hyperkalemia Is this a current diagnosis for this admission?: Yes - Transfer Medications Home Medications: Furosemide [Lasix 40 mg Tablet] 20 mg PO BID 03/14/19 Insulin Degludec [Tresiba Flextouch U-200] 16 units SUBCUT BID 03/14/19 Lactulose [Cephulac Syrup 20 gm/30 ml Udcup] 20 gm PO TID 03/14/19 Levothyroxine Sodium 150 mcg PO Q6AM 03/14/19 Pantoprazole Sodium [Protonix [address] Tablet] 40 mg PO QAM 03/14/19 Potassium Chloride [Klor-Con M20] 20 mg PO DAILY 03/14/19 Rifaximin [Xifaxan 550 mg Tablet] 550 mg PO Q12 03/14/19 Spironolactone [Aldactone] 100 mg PO BID 03/14/19 Ursodiol [Actigall 300 mg Capsule] 300 mg PO Q12 03/14/19 Transfer Medications: Current Medications Acetaminophen (Tylenol 325 Mg Tablet) 650 mg PO Q4HP PRN PRN Reason: FOR PAIN Stop: 05/07/19 14:18 Al Hydrox/Mg Hydrox/Simethicone (Maalox Plus Susp 30 Udcup) 30 ml PO Q6HP PRN PRN Reason: HEARTBURN Stop: 05/07/19 01:31 Albuterol/Ipratropium (Duoneb 3 Ml Ampul) 3 ml NEB [id number] PRN PRN Reason: SHORTNESS OF BREATH Stop: 04/26/19 22:02 Chlorpromazine HCl (Thorazine Inj 25 Mg/1 Ml Ampule) 12.5 mg IV Q4HP PRN PRN Reason: Unresolved nausea/vomiting Stop: 05/08/19 08:39 Dextrose (Dextrose Inj 50% Syringe (25 Gm/50 Ml)) 12.5 gm IV PRN PRN; Protocol PRN Reason: FOR BG 50-69 IN ALERT PATIENT Stop: 04/26/19 22:06 Last Admin: 04/03/19 05:22 Dose: 12.5 gm Documented by: Dextrose (Dextrose Inj 50% Syringe (25 Gm/50 Ml)) 25 gm IV PRN PRN; Protocol PRN Reason: PER PROTOCOL Stop: 04/26/19 22:06 Last Admin: 04/16/19 05:55 Dose: 25 gm Documented by: Ferrous Sulfate (Feosol 325 Mg Tablet) 325 mg PO DAILY [facility] Stop: 05/08/19 09:59 Last Admin: 04/18/19 10:31 Dose: 325 mg Documented by: Furosemide (Lasix 20 Mg Tablet) 10 mg PO TID [facility] Stop: 05/18/19 07:59 Last Admin: 04/18/19 10:30 Dose: Not Given Documented by: Glucagon (Glucagen Inj 1 Mg Vial) 1 mg IM PRN PRN; Protocol PRN Reason: Evaluate for BG < 70 Stop: 04/26/19 22:06 Glucose (Glutose 40% Gel 15 Gm Tube) 15 gm PO PRN PRN; Protocol PRN Reason: FOR BG 50-69 IN ALERT PATIENT Stop: 04/26/19 22:06 Glucose (Glutose 40% Gel 15 Gm Tube) 30 gm PO PRN PRN; Protocol PRN Reason: FOR BG < 50 IN ALERT PATIENT Stop: 04/26/19 22:06 Heparin Sodium (Porcine) (Heparin Inj 5,000 Units/Ml 1 Ml Vial) 5,000 unit SUBCUT Q8 [facility] Stop: 04/27/19 05:59 Last Admin: 04/14/19 14:36 Dose: Not Given Documented by: Insulin Glargine (Lantus Insulin 100 Unit/1 Ml 10 Ml) 8 unit SUBCUT QHS [facility] Stop: 05/17/19 21:59 Last Admin: 04/17/19 22:17 Dose: Not Given Documented by: Insulin Glargine (Lantus Insulin 100 Unit/1 Ml 10 Ml) 10 unit SUBCUT DAILY [facility] Stop: 05/18/19 09:59 Last Admin: 04/18/19 10:32 Dose: 10 unit Documented by: Insulin Human Lispro (Humalog Insulin 100 Unit/1 Ml 3 Ml Vial) 0 - 12 unit SUBCUT AC [facility]; Protocol Stop: 04/27/19 07:59 Last Admin: 04/18/19 11:58 Dose: Not Given Documented by: Lactulose (Cephulac Syrup 20 Gm/30 Ml Udcup) 40 gm PO DAILY [facility] Stop: 05/17/19 09:59 Last Admin: 04/18/19 10:31 Dose: 40 gm Documented by: Levothyroxine Sodium (Synthroid 0.15 Mg Tablet) 0.15 mg PO Q6AM [facility] Stop: 05/07/19 05:59 Last Admin: 04/18/19 06:04 Dose: 0.15 mg Documented by: Midodrine (Proamatine 5 Mg Tablet) 10 mg PO TID [facility] Stop: 05/14/19 17:59 Last Admin: 04/18/19 10:31 Dose: 10 mg Documented by: Multi-Ingredient Cream (Eucerin Cream 114 Gm) 1 applic TP BID [facility] Stop: 05/17/19 09:59 Last Admin: 04/18/19 10:38 Dose: 1 applic Documented by: Ondansetron HCl (Zofran Inj/Pf 4 Mg/2 Ml Sdv) 4 mg IV Q4HP PRN PRN Reason: FOR NAUSEA/VOMITING Stop: 05/06/19 10:49 Last Admin: 04/15/19 23:28 Dose: 4 mg Documented by: Sildenafil Citrate (Revatio 20 Mg Tablet) 20 mg PO MEALS [facility] Stop: 05/13/19 08:59 Last Admin: 04/18/19 12:00 Dose: 20 mg Documented by: Spironolactone (Aldactone 25 Mg Tablet) 50 mg PO BID [facility] Stop: 05/07/19 09:59 Last Admin: 04/18/19 10:31 Dose: 50 mg Documented by: Ursodiol (Actigall 300 Mg Capsule) 300 mg PO Q12 [facility] Stop: 04/26/19 21:59 Last Admin: 04/18/19 10:31 Dose: 300 mg Documented by: - Allergies Allergies/Adverse Reactions: No Known Allergies Allergy (Verified 09/11/18 12:48) Physical Exam Vital Signs: Temp Pulse Resp BP Pulse Ox 98.3 F 67 14 100/38 L 92 04/18/19 08:00 04/18/19 08:00 04/18/19 08:00 04/18/19 08:00 04/18/19 09:22 Intake & Output 04/17/19 04/18/19 04/19/19 06:59 06:59 06:59 Intake Total 480 270 Balance 480 270 Weight 55.9 kg 55.6 kg Results Laboratory Results: 04/17/19 05:32 04/18/19 05:38 04/18/19 05:38 Sodium 139.0 Potassium 4.5 Chloride 103 Carbon Dioxide 24 Anion Gap 12 BUN 52 H Creatinine 1.67 H Est GFR ( Amer) 37 L Glucose 92 Calcium 8.8 Impressions: KUB X-Ray 04/07/19 00:28 IMPRESSION: The tip and side hole of the enteric tube project within the gastric lumen. Chest CT 04/08/19 00:00 IMPRESSION: CARDIOMEGALY. LARGE BILATERAL PLEURAL EFFUSIONS WITH COMPRESSIVE ATELECTASIS IN THE LUNG BASES. Head CT 04/08/19 00:00 IMPRESSION: NORMAL BRAIN CT WITHOUT CONTRAST. CHRONIC RIGHT MAXILLARY SINUS DISEASE. EVIDENCE OF ACUTE STROKE: NO. Abdomen Ultrasound 04/10/19 00:00 IMPRESSION: PATENT TIPS SHUNT. VELOCITIES ABOVE. Thoracentesis Ultrasound 04/15/19 00:00 IMPRESSION: SUCCESSFUL THORACENTESIS USING ULTRASOUND GUIDANCE. Chest X-Ray 04/17/19 08:00 IMPRESSION: No pneumothorax.
[2019-04-18] MEDS: INSULIN GLARGINE,HUM.REC.ANLOG 1,000 UNIT/10 ML VIAL SUBCUT SCH (21:46)
[2019-04-19] MEDS: LEVOTHYROXINE SODIUM 0.15 MG TABLET PO SCH (05:34)
--- NOTE | 2019-04-19 06:29 | PDOC PROGRESS REPORT ---
Subjective Progress Note for:: 04/18/19 Subjective:: The patient is sitting up at the edge of the bed eating her lunch. Her son and are in room. She appears stable and has no current complaints. Reason For Visit: ACUTE RENAL FAILURE,PRIMARY BILIARY CHOLANGITIS, Physical Exam Vital Signs: Temp Pulse Resp BP Pulse Ox 97.3 F 66 18 97/37 L 96 04/19/19 04:00 04/19/19 04:00 04/19/19 04:00 04/19/19 04:00 04/19/19 04:00 Intake & Output 04/17/19 04/18/19 04/19/19 06:59 06:59 06:59 Intake Total 480 270 650 Balance 480 270 650 Weight 55.9 kg 55.6 kg 54.5 kg General appearance: PRESENT: no acute distress, cooperative, well-developed Eye exam: PRESENT: scleral icterus Ear exam: PRESENT: normal external ear exam. ABSENT: bleeding, drainage Respiratory exam: PRESENT: rales - At bases, symmetrical, unlabored. ABSENT: rhonchi, stridor, tachypnea Cardiovascular exam: PRESENT: RRR, +S1, +S2 GI/Abdominal exam: PRESENT: distended, normal bowel sounds, soft. ABSENT: guarding, tenderness Rectal exam: PRESENT: deferred Gentrourinary exam: ABSENT: indwelling catheter Neurological exam: PRESENT: alert, awake, oriented to person, oriented to place, oriented to situation Skin exam: PRESENT: jaundice Results Laboratory Results: 04/17/19 05:32 04/18/19 05:38 04/18/19 05:38 Sodium 139.0 Potassium 4.5 Chloride 103 Carbon Dioxide 24 Anion Gap 12 BUN 52 H Creatinine 1.67 H Est GFR ( Amer) 37 L Glucose 92 Calcium 8.8 Impressions: KUB X-Ray 04/07/19 00:28 IMPRESSION: The tip and side hole of the enteric tube project within the gastric lumen. Chest CT 04/08/19 00:00 IMPRESSION: CARDIOMEGALY. LARGE BILATERAL PLEURAL EFFUSIONS WITH COMPRESSIVE ATELECTASIS IN THE LUNG BASES. Head CT 04/08/19 00:00 IMPRESSION: NORMAL BRAIN CT WITHOUT CONTRAST. CHRONIC RIGHT MAXILLARY SINUS DISEASE. EVIDENCE OF ACUTE STROKE: NO. Abdomen Ultrasound 04/10/19 00:00 IMPRESSION: PATENT TIPS SHUNT. VELOCITIES ABOVE. Thoracentesis Ultrasound 04/15/19 00:00 IMPRESSION: SUCCESSFUL THORACENTESIS USING ULTRASOUND GUIDANCE. Chest X-Ray 04/17/19 08:00 IMPRESSION: No pneumothorax. Assessment and Plan - Diagnosis (1) 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 hypertension Is this a current diagnosis for this admission?: Yes (2) Bilateral pleural effusion Is this a current diagnosis for this admission?: Yes (3) Pneumothorax, right Is this a current diagnosis for this admission?: Yes (4) Acute respiratory failure with hypoxia Is this a current diagnosis for this admission?: Yes (5) Primary biliary cirrhosis Is this a current diagnosis for this admission?: Yes (6) Acute on chronic kidney failure Qualifiers: Chronic kidney disease stage: stage 3 (moderate) Is this a current diagnosis for this admission?: Yes (7) Back pain Qualifiers: Back pain location: low back pain Chronicity: acute Back pain laterality: bilateral Sciatica presence: without sciatica Qualified Code(s): M54.5 - Low back pain Is this a current diagnosis for this admission?: Yes (8) Diabetes mellitus Qualifiers: Diabetes mellitus type: other specified (including BALJEET) Is this a current diagnosis for this admission?: Yes (9) Hypotension Qualifiers: Hypotension type: other hypotension type Qualified Code(s): I95.89 - Other hypotension Is this a current diagnosis for this admission?: Yes (10) Physical debility Is this a current diagnosis for this admission?: Yes (11) Anemia Qualifiers: Anemia type: other cause Other causes of anemia: chronic disease, other Qualified Code(s): D63.8 - Anemia in other chronic diseases classified elsewhere Is this a current diagnosis for this admission?: Yes (12) Hepatic encephalopathy Is this a current diagnosis for this admission?: Yes (13) Urinary tract infection Qualifiers: Urinary tract infection type: acute cystitis Hematuria presence: with hematuria Qualified Code(s): N30.01 - Acute cystitis with hematuria Is this a current diagnosis for this admission?: Yes (14) Hyperkalemia Is this a current diagnosis for this admission?: Yes - Plan Summary Summary: 04/18/2019 The patient is stable. Her BUN and creatinine are increased slightly again today. Unfortunately the staff is not keeping strict intake and output records and therefore it is impossible to know a true fluid balance. This is unfortunate as the fluid balance of this patient is extremely important. Her breathing appears comfortable but she does remain on 5 L nasal cannula. We are trying to taper the oxygen to keep her saturations above 90%. The most recent chest x-ray shows resolution of the pneumothorax. She still has bilateral pleural effusions but they appear stable. Most of today's encounter was spent discussing the benefits of transition to [facility]. Because the patient still desires to achieve transplant status she needs maximum ongoing care. She is still very weak. She will need aggressive physical therapy. Because of the complexity of her illness she will need monitoring of her mental status and ammonia levels so that the lactulose can be adjusted. She will need close scrutiny of her fluid balance and its relation to kidney function and her pleural effusions. She needs aggressive diuresis to try and maintain a neutral fluid balance but her renal function needs to be closely monitored as well. The family was concerned about the distance to the facility. I explained that being closer to the subspecialists would be better for the patient. I also explained that any lesser level of care would almost certainly end up in the patient reexperiencing complications and not meeting the qualifications for liver transplant. At the [facility] there will be more specialty care available especially from pulmonology as we are trying to decrease her severe pulmonary hypertension. She will require adjustments in her medications based on daily clinical assessments. It was a lengthy discussion but because they still want to pursue transplant status I told him that this was the best opportunity for the patient to achieve her goal. - Time Time Spent with patient: 25-34 minutes Medications reviewed and adjusted accordingly: Yes Anticipated discharge: Other
[2019-04-19] MEDS: SILDENAFIL CITRATE 20 MG TABLET PO SCH ×3 (08:30→16:37)
[2019-04-19] MEDS: INSULIN LISPRO 100 UNIT/ML 3 ML VIAL SUBCUT SCH ×3 (08:30→16:36)
[2019-04-19] MEDS: FERROUS SULFATE 325 MG TABLET PO SCH (09:31)
[2019-04-19] MEDS: FUROSEMIDE 20 MG TABLET PO SCH ×3 (09:31→17:36)
[2019-04-19] MEDS: URSODIOL 300 MG CAPSULE PO SCH ×2 (09:31→22:14)
[2019-04-19] MEDS: SPIRONOLACTONE 25 MG TABLET PO SCH ×2 (09:31→17:37)
[2019-04-19] MEDS: MIDODRINE HCL 5 MG TABLET PO SCH ×3 (09:31→17:37)
[2019-04-19] MEDS: LACTULOSE SYRUP 20 GM/30 ML UDCUP PO SCH (09:31)
[2019-04-19] MEDS: MINERAL OIL/PETROLATUM,WHITE CREAM 114 GM TP SCH ×2 (09:37→17:37)
[2019-04-19] MEDS: INSULIN GLARGINE,HUM.REC.ANLOG 1,000 UNIT/10 ML VIAL SUBCUT SCH ×2 (11:35→22:14)
--- NOTE | 2019-04-19 14:03 | PDOC PROGRESS REPORT ---
Subjective Progress Note for:: 04/19/19 Subjective:: The patient is sitting up in bed. Her lunch tray is in front of her but she is hardly touched it. An assortment of Glucerna drinks still rest on the shelf by her sink. She still reports that her appetite is poor despite expanding her diet slightly. Unfortunately insurance prior authorization for the LTAC did not arrive yesterday which means that I will probably not arrive until Sunday. Reason For Visit: ACUTE RENAL FAILURE,PRIMARY BILIARY CHOLANGITIS, Physical Exam Vital Signs: Temp Pulse Resp BP Pulse Ox 97.6 F 64 20 105/42 L 96 04/19/19 11:21 04/19/19 11:21 04/19/19 11:21 04/19/19 11:21 04/19/19 11:21 Intake & Output 04/18/19 04/19/19 04/20/19 06:59 06:59 06:59 Intake Total 270 650 120 Balance 270 650 120 Weight 55.6 kg 54.5 kg General appearance: PRESENT: no acute distress, cooperative Head exam: PRESENT: atraumatic, normocephalic Eye exam: PRESENT: conjunctiva pale, scleral icterus Ear exam: PRESENT: normal external ear exam. ABSENT: bleeding, drainage Respiratory exam: PRESENT: rales - At both bases, symmetrical, unlabored. ABSENT: prolonged expiratory phas, rhonchi, tachypnea, wheezes Cardiovascular exam: PRESENT: RRR, +S1, +S2 GI/Abdominal exam: PRESENT: distended, normal bowel sounds, soft. ABSENT: tenderness Extremities exam: ABSENT: pedal edema Neurological exam: PRESENT: alert, awake, oriented to person, oriented to place, oriented to time, oriented to situation, CN II-XII grossly intact. ABSENT: altered Psychiatric exam: PRESENT: flat affect. ABSENT: agitated, anxious Results Laboratory Results: 04/17/19 05:32 04/18/19 05:38 Impressions: KUB X-Ray 04/07/19 00:28 IMPRESSION: The tip and side hole of the enteric tube project within the gastric lumen. Chest CT 04/08/19 00:00 IMPRESSION: CARDIOMEGALY. LARGE BILATERAL PLEURAL EFFUSIONS WITH COMPRESSIVE ATELECTASIS IN THE LUNG BASES. Head CT 04/08/19 00:00 IMPRESSION: NORMAL BRAIN CT WITHOUT CONTRAST. CHRONIC RIGHT MAXILLARY SINUS DISEASE. EVIDENCE OF ACUTE STROKE: NO. Abdomen Ultrasound 04/10/19 00:00 IMPRESSION: PATENT TIPS SHUNT. VELOCITIES ABOVE. Thoracentesis Ultrasound 04/15/19 00:00 IMPRESSION: SUCCESSFUL THORACENTESIS USING ULTRASOUND GUIDANCE. Chest X-Ray 04/17/19 08:00 IMPRESSION: No pneumothorax. Assessment and Plan - Diagnosis (1) 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 hypertension Is this a current diagnosis for this admission?: Yes (2) Bilateral pleural effusion Is this a current diagnosis for this admission?: Yes (3) Pneumothorax, right Is this a current diagnosis for this admission?: Yes (4) Acute respiratory failure with hypoxia Is this a current diagnosis for this admission?: Yes (5) Primary biliary cirrhosis Is this a current diagnosis for this admission?: Yes (6) Acute on chronic kidney failure Qualifiers: Chronic kidney disease stage: stage 3 (moderate) Is this a current diagnosis for this admission?: Yes (7) Back pain Qualifiers: Back pain location: low back pain Chronicity: acute Back pain laterality: bilateral Sciatica presence: without sciatica Qualified Code(s): M54.5 - Low back pain Is this a current diagnosis for this admission?: Yes (8) Diabetes mellitus Qualifiers: Diabetes mellitus type: other specified (including BALJEET) Is this a current diagnosis for this admission?: Yes (9) Hypotension Qualifiers: Hypotension type: other hypotension type Qualified Code(s): I95.89 - Other hypotension Is this a current diagnosis for this admission?: Yes (10) Physical debility Is this a current diagnosis for this admission?: Yes (11) Anemia Qualifiers: Anemia type: other cause Other causes of anemia: chronic disease, other Qualified Code(s): D63.8 - Anemia in other chronic diseases classified elsewhere Is this a current diagnosis for this admission?: Yes (12) Hepatic encephalopathy Is this a current diagnosis for this admission?: Yes (13) Urinary tract infection Qualifiers: Urinary tract infection type: acute cystitis Hematuria presence: with hematuria Qualified Code(s): N30.01 - Acute cystitis with hematuria Is this a current diagnosis for this admission?: Yes (14) Hyperkalemia Is this a current diagnosis for this admission?: Yes - Plan Summary Summary: 04/18/2019 The patient is stable. Her BUN and creatinine are increased slightly again today. Unfortunately the staff is not keeping strict intake and output records and therefore it is impossible to know a true fluid balance. This is unfortunate as the fluid balance of this patient is extremely important. Her breathing appears comfortable but she does remain on 5 L nasal cannula. We are trying to taper the oxygen to keep her saturations above 90%. The most recent chest x-ray shows resolution of the pneumothorax. She still has bilateral pleural effusions but they appear stable. Most of today's encounter was spent discussing the benefits of transition to [facility]. Because the patient still desires to achieve transplant status she needs maximum ongoing care. She is still very weak. She will need aggressive physical therapy. Because of the complexity of her illness she will need monitoring of her mental status and ammonia levels so that the lactulose can be adjusted. She will need close scrutiny of her fluid balance and its relation to kidney function and her pleural effusions. She needs aggressive diuresis to try and maintain a neutral fluid balance but her renal function needs to be closely monitored as well. The family was concerned about the distance to the facility. I explained that being closer to the subspecialists would be better for the patient. I also explained that any lesser level of care would almost certainly end up in the patient reexperiencing complications and not meeting the qualifications for liver transplant. At the [facility] there will be more specialty care available especially from pulmonology as we are trying to decrease her severe pulmonary hypertension. She will require adjustments in her medications based on daily clinical assessments. It was a lengthy discussion but because they still want to pursue transplant status I told him that this was the best opportunity for the patient to achieve her goal. 04/19/2019 The patient and family are disappointed having not heard from the insurance company yet. This will need she is here for the weekend. I did explain that on a positive note the pleural fluid does not seem to be accumulating as quickly as before. He also reported that I had to decrease her diuretic slightly as her BUN and creatinine were increasing. I want to avoid administering IV fluids at all costs as it would be very counterproductive for the patient. Her serum potassium is normal. She remains anemic and her white blood cell count is now normal. We will continue to monitor the patient closely. Keep track of intake and output. Monitor vital signs and laboratory studies. There is no change in the treatment plan or medications today. We will be checking laboratory studies again tomorrow. I also continue to encourage the patient to get out of bed and get into the chair or walk. - Time Time Spent with patient: 15-24 minutes Medications reviewed and adjusted accordingly: Yes Anticipated discharge: Other - Long-term acute care hospital
[2019-04-20] MEDS: LEVOTHYROXINE SODIUM 0.15 MG TABLET PO SCH (05:09)
[2019-04-20 05:52] LABS: ALBUMIN 2.9 g/dL (3.5-5.0); ALKALINE PHOSPHATASE 112 U/L (38-126); ANION GAP 10 (5-19); ASPARTATE AMINO TRANSFERASE 21 U/L (14-36); BILIRUBIN,TOTAL 2.9 mg/dL (0.2-1.3); BLOOD UREA NITROGEN 55 mg/dL (7-20); CALCIUM 8.9 mg/dL (8.4-10.2); CARBON DIOXIDE 24 mmol/L (22-30); CHLORIDE 102 mmol/L (98-107); GLUCOSE 212 mg/dL (75-110); POTASSIUM 4.8 mmol/L (3.6-5.0); TOTAL PROTEIN 6.3 g/dL (6.3-8.2)
[2019-04-20] MEDS: INSULIN LISPRO 100 UNIT/ML 3 ML VIAL SUBCUT SCH ×3 (08:55→16:37)
[2019-04-20] MEDS: SILDENAFIL CITRATE 20 MG TABLET PO SCH ×3 (08:56→16:37)
[2019-04-20] MEDS: SPIRONOLACTONE 25 MG TABLET PO SCH ×2 (09:23→17:18)
[2019-04-20] MEDS: FUROSEMIDE 20 MG TABLET PO SCH ×3 (09:23→17:18)
[2019-04-20] MEDS: MIDODRINE HCL 5 MG TABLET PO SCH ×3 (09:23→17:18)
[2019-04-20] MEDS: LACTULOSE SYRUP 20 GM/30 ML UDCUP PO SCH (09:24)
[2019-04-20] MEDS: MINERAL OIL/PETROLATUM,WHITE CREAM 114 GM TP SCH ×2 (09:24→17:17)
[2019-04-20] MEDS: URSODIOL 300 MG CAPSULE PO SCH ×2 (09:24→21:49)
[2019-04-20] MEDS: FERROUS SULFATE 325 MG TABLET PO SCH (09:24)
[2019-04-20] MEDS: INSULIN GLARGINE,HUM.REC.ANLOG 1,000 UNIT/10 ML VIAL SUBCUT SCH ×2 (10:44→21:50)
--- NOTE | 2019-04-20 10:50 | PDOC PROGRESS REPORT ---
Subjective Progress Note for:: 04/20/19 Subjective:: The patient is sitting up in the chair. She is still working on her breakfast tray. She is starting to drink her Glucerna. Her Accu-Cheks are still elevated. I did find out from the nurse that she has not been getting her Lantus and so I have been adjusting the doses then thinking that she was getting her Lantus and still seeing high glucose readings. She does seem less interactive. She is not answering questions as quickly as she did yesterday. Reason For Visit: ACUTE RENAL FAILURE,PRIMARY BILIARY CHOLANGITIS, Physical Exam Vital Signs: Temp Pulse Resp BP Pulse Ox 97.3 F 68 12 96/27 L 95 04/20/19 07:38 04/20/19 07:38 04/20/19 07:38 04/20/19 07:38 04/20/19 07:38 Intake & Output 04/19/19 04/20/19 04/21/19 06:59 06:59 06:59 Intake Total 650 536 Balance 650 536 Weight 54.5 kg 53.5 kg General appearance: PRESENT: no acute distress, cooperative Respiratory exam: PRESENT: clear to auscultation josh - Faint rales at bases. Remainder of lung grimm are clear, rales - Faint rales at bases, symmetrical, unlabored. ABSENT: rhonchi, tachypnea, wheezes Cardiovascular exam: PRESENT: RRR, +S1, +S2, systolic murmur - 2/6 GI/Abdominal exam: PRESENT: distended, normal bowel sounds, soft. ABSENT: guarding, tenderness Rectal exam: PRESENT: deferred Neurological exam: PRESENT: alert, awake, oriented to person, oriented to place, oriented to situation, CN II-XII grossly intact Psychiatric exam: PRESENT: flat affect. ABSENT: agitated, anxious Results Laboratory Results: 04/17/19 05:32 04/20/19 04:36 04/20/19 04:36 Sodium 136.4 L Potassium 4.8 Chloride 102 Carbon Dioxide 24 Anion Gap 10 BUN 55 H Creatinine 1.64 H Est GFR ( Amer) 37 L Glucose 212 H Calcium 8.9 Magnesium 1.9 Total Bilirubin 2.9 H AST 21 Alkaline Phosphatase 112 Total Protein 6.3 Albumin 2.9 L Impressions: KUB X-Ray 04/07/19 00:28 IMPRESSION: The tip and side hole of the enteric tube project within the gastric lumen. Chest CT 04/08/19 00:00 IMPRESSION: CARDIOMEGALY. LARGE BILATERAL PLEURAL EFFUSIONS WITH COMPRESSIVE ATELECTASIS IN THE LUNG BASES. Head CT 04/08/19 00:00 IMPRESSION: NORMAL BRAIN CT WITHOUT CONTRAST. CHRONIC RIGHT MAXILLARY SINUS DISEASE. EVIDENCE OF ACUTE STROKE: NO. Abdomen Ultrasound 04/10/19 00:00 IMPRESSION: PATENT TIPS SHUNT. VELOCITIES ABOVE. Thoracentesis Ultrasound 04/15/19 00:00 IMPRESSION: SUCCESSFUL THORACENTESIS USING ULTRASOUND GUIDANCE. Chest X-Ray 04/17/19 08:00 IMPRESSION: No pneumothorax. Assessment and Plan - Diagnosis (1) 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 hypertension Is this a current diagnosis for this admission?: Yes (2) Bilateral pleural effusion Is this a current diagnosis for this admission?: Yes (3) Pneumothorax, right Is this a current diagnosis for this admission?: Yes (4) Acute respiratory failure with hypoxia Is this a current diagnosis for this admission?: Yes (5) Primary biliary cirrhosis Is this a current diagnosis for this admission?: Yes (6) Acute on chronic kidney failure Qualifiers: Chronic kidney disease stage: stage 3 (moderate) Is this a current diagnosis for this admission?: Yes (7) Back pain Qualifiers: Back pain location: low back pain Chronicity: acute Back pain laterality: bilateral Sciatica presence: without sciatica Qualified Code(s): M54.5 - Low back pain Is this a current diagnosis for this admission?: Yes (8) Diabetes mellitus Qualifiers: Diabetes mellitus type: other specified (including BALJEET) Is this a current diagnosis for this admission?: Yes (9) Hypotension Qualifiers: Hypotension type: other hypotension type Qualified Code(s): I95.89 - Other hypotension Is this a current diagnosis for this admission?: Yes (10) Physical debility Is this a current diagnosis for this admission?: Yes (11) Anemia Qualifiers: Anemia type: other cause Other causes of anemia: chronic disease, other Qualified Code(s): D63.8 - Anemia in other chronic diseases classified elsewhere Is this a current diagnosis for this admission?: Yes (12) Hepatic encephalopathy Is this a current diagnosis for this admission?: Yes (13) Urinary tract infection Qualifiers: Urinary tract infection type: acute cystitis Hematuria presence: with hematuria Qualified Code(s): N30.01 - Acute cystitis with hematuria Is this a current diagnosis for this admission?: Yes (14) Hyperkalemia Is this a current diagnosis for this admission?: Yes - Plan Summary Summary: 04/18/2019 The patient is stable. Her BUN and creatinine are increased slightly again today. Unfortunately the staff is not keeping strict intake and output records and therefore it is impossible to know a true fluid balance. This is unfortunate as the fluid balance of this patient is extremely important. Her breathing appears comfortable but she does remain on 5 L nasal cannula. We are trying to taper the oxygen to keep her saturations above 90%. The most recent chest x-ray shows resolution of the pneumothorax. She still has bilateral pleural effusions but they appear stable. Most of today's encounter was spent discussing the benefits of transition to [facility]. Because the patient still desires to achieve transplant status she needs maximum ongoing care. She is still very weak. She will need aggressive physical therapy. Because of the complexity of her illness she will need monitoring of h er mental status and ammonia levels so that the lactulose can be adjusted. She will need close scrutiny of her fluid balance and its relation to kidney function and her pleural effusions. She needs aggressive diuresis to try and maintain a neutral fluid balance but her renal function needs to be closely monitored as well. The family was concerned about the distance to the facility. I explained that being closer to the subspecialists would be better for the patient. I also explained that any lesser level of care would almost certainly end up in the patient reexperiencing complications and not meeting the qualifications for liver transplant. At the [facility] there will be more specialty care available especially from pulmonology as we are trying to decrease her severe pulmonary hypertension. She will require adjustments in her medications based on daily clinical assessments. It was a lengthy discussion but because they still want to pursue transplant status I told him that this was the best opportunity for the patient to achieve her goal. 04/19/2019 The patient and family are disappointed having not heard from the insurance company yet. This will need she is here for the weekend. I did explain that on a positive note the pleural fluid does not seem to be accumulating as quickly as before. He also reported that I had to decrease her diuretic slightly as her BUN and creatinine were increasing. I want to avoid administering IV fluids at all costs as it would be very counterproductive for the patient. Her serum potassium is normal. She remains anemic and her white blood cell count is now normal. We will continue to monitor the patient closely. Keep track of intake and output. Monitor vital signs and laboratory studies. There is no change in the treatment plan or medications today. We will be checking laboratory studies again tomorrow. I also continue to encourage the patient to get out of bed and get into the chair or walk. 04/20/2019 I was made aware of the fact that the patient had not been getting all of the Lantus that had been ordered. Evidently they were holding the Lantus if her Accu-Cheks were less than 175. Explained to the nurse that this is in fact I would have needed to know or I would not have kept changing the Lantus dosing. With this information in mind I have cut way back on the Lantus. We will try 6 units in the morning and 3 units at night. She was still have the sliding scale. 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 Her renal function is slightly better today. It is still not back to what it was several days ago. Her is little concerned that she does not seem as sharp as she was and so we will check an ammonia level. Her breathing in fact remains comfortable and her lungs had trace rales at the bases. We will recheck her chemistries in the morning. We will monitor her Accu-Cheks with the revamped Lantus regimen. Hopefully the insurance companies will be able to give us a verdict on the prior authorization for long-term acute care hospital placement. - Time Time Spent with patient: 25-34 minutes Medications reviewed and adjusted accordingly: Yes
[2019-04-20] MEDS ORDERED: INSULIN GLARGINE,HUM.REC.ANLOG 1,000 UNIT/10 ML VIAL SUBCUT SCH (22:00)
[2019-04-21] MEDS: LEVOTHYROXINE SODIUM 0.15 MG TABLET PO SCH (05:05)
[2019-04-21] MEDS: INSULIN LISPRO 100 UNIT/ML 3 ML VIAL SUBCUT SCH ×3 (08:30→17:46)
[2019-04-21] MEDS: LACTULOSE SYRUP 20 GM/30 ML UDCUP PO SCH ×3 (09:34→17:45)
[2019-04-21] MEDS: FUROSEMIDE 20 MG TABLET PO SCH ×3 (09:35→17:45)
[2019-04-21] MEDS: FERROUS SULFATE 325 MG TABLET PO SCH (09:35)
[2019-04-21] MEDS: SPIRONOLACTONE 25 MG TABLET PO SCH ×2 (09:35→17:45)
[2019-04-21] MEDS: MINERAL OIL/PETROLATUM,WHITE CREAM 114 GM TP SCH ×2 (09:36→17:48)
[2019-04-21] MEDS: URSODIOL 300 MG CAPSULE PO SCH ×2 (09:36→22:34)
[2019-04-21] MEDS: SILDENAFIL CITRATE 20 MG TABLET PO SCH ×3 (09:36→17:47)
[2019-04-21] MEDS: MIDODRINE HCL 5 MG TABLET PO SCH ×3 (09:37→17:47)
[2019-04-21] MEDS ORDERED: INSULIN GLARGINE,HUM.REC.ANLOG 1,000 UNIT/10 ML VIAL SUBCUT SCH (10:00)
--- NOTE | 2019-04-21 11:33 | PDOC PROGRESS REPORT ---
Subjective Progress Note for:: 04/21/19 Subjective:: The patient is sitting up in bed. She has no complaints at this time. She reports no difficulty breathing and no abdominal pain. She denies feeling fuzzy headed. Reason For Visit: ACUTE RENAL FAILURE,PRIMARY BILIARY CHOLANGITIS, Physical Exam Vital Signs: Temp Pulse Resp BP Pulse Ox 97.4 F 67 16 93/42 L 95 04/21/19 07:38 04/21/19 07:38 04/21/19 07:38 04/21/19 09:38 04/21/19 07:38 Intake & Output 04/20/19 04/21/19 04/22/19 06:59 06:59 06:59 Intake Total 536 594 Balance 536 594 Weight 53.5 kg 53.4 kg General appearance: PRESENT: no acute distress, cooperative, well-developed. ABSENT: well-nourished - Very frail-appearing Head exam: PRESENT: atraumatic, normocephalic Respiratory exam: PRESENT: rales - Rales at bases, symmetrical, unlabored. ABS ENT: prolonged expiratory phas, rhonchi, tachypnea, wheezes Cardiovascular exam: PRESENT: RRR, +S1, +S2, systolic murmur - 2/6 GI/Abdominal exam: PRESENT: diminished bowel sounds, distended, soft. ABSENT: tenderness Rectal exam: PRESENT: deferred Extremities exam: ABSENT: joint swelling, pedal edema Musculoskeletal exam: PRESENT: other - Decreased muscle mass Neurological exam: PRESENT: alert, awake, oriented to person, oriented to place, oriented to situation Psychiatric exam: PRESENT: flat affect. ABSENT: agitated, anxious Focused psych exam: ABSENT: delusional, restlessness Skin exam: PRESENT: jaundice Results Laboratory Results: 04/17/19 05:32 04/20/19 04:36 04/20/19 15:00 Ammonia 139.2 H Impressions: KUB X-Ray 04/07/19 00:28 IMPRESSION: The tip and side hole of the enteric tube project within the gastric lumen. Chest CT 04/08/19 00:00 IMPRESSION: CARDIOMEGALY. LARGE BILATERAL PLEURAL EFFUSIONS WITH COMPRESSIVE ATELECTASIS IN THE LUNG BASES. Head CT 04/08/19 00:00 IMPRESSION: NORMAL BRAIN CT WITHOUT CONTRAST. CHRONIC RIGHT MAXILLARY SINUS DISEASE. EVIDENCE OF ACUTE STROKE: NO. Abdomen Ultrasound 04/10/19 00:00 IMPRESSION: PATENT TIPS SHUNT. VELOCITIES ABOVE. Thoracentesis Ultrasound 04/15/19 00:00 IMPRESSION: SUCCESSFUL THORACENTESIS USING ULTRASOUND GUIDANCE. Chest X-Ray 04/17/19 08:00 IMPRESSION: No pneumothorax. Assessment and Plan - Diagnosis (1) 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 hypertension Is this a current diagnosis for this admission?: Yes (2) Bilateral pleural effusion Is this a current diagnosis for this admission?: Yes (3) Pneumothorax, right Is this a current diagnosis for this admission?: Yes (4) Acute respiratory failure with hypoxia Is this a current diagnosis for this admission?: Yes (5) Primary biliary cirrhosis Is this a current diagnosis for this admission?: Yes (6) Acute on chronic kidney failure Qualifiers: Chronic kidney disease stage: stage 3 (moderate) Is this a current diagnosis for this admission?: Yes (7) Back pain Qualifiers: Back pain location: low back pain Chronicity: acute Back pain laterality: bilateral Sciatica presence: without sciatica Qualified Code(s): M54.5 - Low back pain Is this a current diagnosis for this admission?: Yes (8) Diabetes mellitus Qualifiers: Diabetes mellitus type: other specified (including BALJEET) Is this a current diagnosis for this admission?: Yes (9) Hypotension Qualifiers: Hypotension type: other hypotension type Qualified Code(s): I95.89 - Other hypotension Is this a current diagnosis for this admission?: Yes (10) Physical debility Is this a current diagnosis for this admission?: Yes (11) Anemia Qualifiers: Anemia type: other cause Other causes of anemia: chronic disease, other Qualified Code(s): D63.8 - Anemia in other chronic diseases classified elsewhere Is this a current diagnosis for this admission?: Yes (12) Hepatic encephalopathy Is this a current diagnosis for this admission?: Yes (13) Urinary tract infection Qualifiers: Urinary tract infection type: acute cystitis Hematuria presence: with hematuria Qualified Code(s): N30.01 - Acute cystitis with hematuria Is this a current diagnosis for this admission?: Yes (14) Hyperkalemia Is this a current diagnosis for this admission?: Yes - Plan Summary Summary: 04/18/2019 The patient is stable. Her BUN and creatinine are increased slightly again today. Unfortunately the staff is not keeping strict intake and output records and therefore it is impossible to know a true fluid balance. This is unfortunate as the fluid balance of this patient is extremely important. Her breathing appears comfortable but she does remain on 5 L nasal cannula. We are trying to taper the oxygen to keep her saturations above 90%. The most recent chest x-ray shows resolution of the pneumothorax. She still has bilateral pleural effusions but they appear stable. Most of today's encounter was spent discussing the benefits of transition to [facility]. Because the patient still desires to achieve transplant status she needs maximum ongoing care. She is still very weak. She will need aggressive physical therapy. Because of the complexity of her illness she will need monitoring of her mental status and ammonia levels so that the lactulose can be adjusted. She will need close scrutiny of her fluid balance and its relation to kidney function and her pleural effusions. She needs aggressive diuresis to try and maintain a neutral fluid balance but her renal function needs to be closely monitored as well. The family was concerned about the distance to the facility. I explained that being closer to the subspecialists would be better for the patient. I also explained that any lesser level of care would almost certainly end up in the patient reexperiencing complications and not meeting the qualifications for liver transplant. At the [facility] there will be more specialty care available especially from pulmonology as we are trying to decrease her severe pulmonary hypertension. She will require adjustments in her medications based on daily clinical assessments. It was a lengthy discussion but because they still want to pursue transplant status I told him that this was the best opportunity for the patient to achieve her goal. 04/19/2019 The patient and family are disappointed having not heard from the insurance company yet. This will need she is here for the weekend. I did explain that on a positive note the pleural fluid does not seem to be accumulating as quickly as before. He also reported that I had to decrease her diuretic slightly as her BUN and creatinine were increasing. I want to avoid administering IV fluids at all costs as it would be very counterproductive for the patient. Her serum potassium is normal. She remains anemic and her white blood cell count is now normal. We will continue to monitor the patient closely. Keep track of intake and output. Monitor vital signs and laboratory studies. There is no change in the treatment plan or medications today. We will be checking laboratory studies again tomorrow. I also continue to encourage the patient to get out of bed and get into the chair or walk. 04/20/2019 I was made aware of the fact that the patient had not been getting all of the Lantus that had been ordered. Evidently they were holding the Lantus if her Accu-Cheks were less than 175. Explained to the nurse that this is in fact I would have needed to know or I would not have kept changing the Lantus dosing. With this information in mind I have cut way back on the Lantus. We will try 6 units in the morning and 3 units at night. She was still have the sliding scale. 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 Her renal function is slightly better today. It is still not back to what it was several days ago. Her is little concerned that she does not seem as sharp as she was and so we will check an ammonia level. Her breathing in fact remains comfortable and her lungs had trace rales at the bases. We will recheck her chemistries in the morning. We will monitor her Accu-Cheks with the revamped Lantus regimen. Hopefully the insurance companies will be able to give us a verdict on the prior authorization for long-term acute care hospital placement. 04/21/2019 The patient's felt that she was displaying some signs of hepatic encephalopathy. He was correct. Her ammonia level went up to 140. It may be because she is taking more protein and now that she started to drink her protein drinks. Her appetite was poor and so this was a way to supplement. I did speak to dietary and we are going to try to have consistent protein available and set a daily At 65 to 70 g. She is on lactulose 3 times a day right now and as her ammonia level decreases we can back off on that slowly. We will need to watch her potassium level and magnesium level while on the higher dose of lactulose. Her mental clarity is improved today. The patient clearly is not building up the fluid in her lungs that she had thoracenteses for. It is a question of time before the fluid buildup but the c urrent regimen is slowing the process significantly. Her breathing remains comfortable. I did back off on the diuretics slightly because her BUN and creatinine had started to rise. This is improved. Diabetes-as noted above the patient was not getting the Lantus that was ordered due to a plan to hold if her Accu-Chek was less than 170. This was to prevent hypoglycemic episodes. She had had some significant hypoglycemia. I did decrease the Lantus significantly. She is on much lower doses. Her glucoses have been higher. Her reports that she is always been extremely fragile diabetic. This was even before the primary biliary cirrhosis. I will increase the Lantus slightly and we will continue to use the sliding scale. She has completed her antibiotic therapy. Transfer to the [facility] is still pending approval. I spoke to case management and the facility has required notes from the weekend. - Time Time Spent with patient: 15-24 minutes Medications reviewed and adjusted accordingly: Yes Anticipated discharge: Other - [facility] pending aut horization Within: when bed available
[2019-04-21] MEDS: MELATONIN 5 MG TABLET PO PRN (22:34)
[2019-04-21] MEDS: INSULIN GLARGINE,HUM.REC.ANLOG 1,000 UNIT/10 ML VIAL SUBCUT SCH (22:35)
[2019-04-22] MEDS: LEVOTHYROXINE SODIUM 0.15 MG TABLET PO SCH (05:49)
[2019-04-22 07:09] LABS: ALKALINE PHOSPHATASE 115 U/L (38-126); ANION GAP 12 (5-19); ASPARTATE AMINO TRANSFERASE 21 U/L (14-36); BILIRUBIN,DIRECT 1.6 mg/dL (0.0-0.4); BILIRUBIN,TOTAL 2.8 mg/dL (0.2-1.3); BLOOD UREA NITROGEN 50 mg/dL (7-20); CALCIUM 9.1 mg/dL (8.4-10.2); CARBON DIOXIDE 22 mmol/L (22-30); CHLORIDE 100 mmol/L (98-107); GLUCOSE 303 mg/dL (75-110); POTASSIUM 4.6 mmol/L (3.6-5.0); TOTAL PROTEIN 6.5 g/dL (6.3-8.2)
[2019-04-22 07:11] LABS: ABSOLUTE EOSINOPHILS # (AUTO) 0.1 10^3/uL (0.0-0.6); ABSOLUTE LYMPHOCYTES (AUTO) 0.6 10^3/uL (0.5-4.7); ABSOLUTE MONOCYTES (AUTO) 0.4 10^3/uL (0.1-1.4); ABSOLUTE NEUT (AUTO) 2.5 10^3/uL (1.7-8.2); BASOPHILS % (AUTO) 0.8 % (0-2); EOSINOPHILS % (AUTO) 3.6 % (0-6); HEMATOCRIT 30.2 % (36.0-47.0); HEMOGLOBIN 9.9 g/dL (12.0-15.5); MEAN CORPUSCULAR HEMOGLOBIN 28.8 pg (27.0-33.4); MEAN CORPUSCULAR HGB CONC 32.8 g/dL (32.0-36.0); MEAN CORPUSCULAR VOLUME 88 fl (80-97); MONOCYTES % (AUTO) 11.1 % (3-13); RED BLOOD COUNT 3.44 10^6/uL (3.72-5.28); SEGMENTED NEUTROPHILS % (AUTO) 67.5 % (42-78); TOTAL CELLS COUNTED % (AUTO) 100 %; WHITE BLOOD COUNT 3.7 10^3/uL (4.0-10.5)
[2019-04-22] MEDS: SILDENAFIL CITRATE 20 MG TABLET PO SCH ×3 (07:30→16:16)
[2019-04-22] MEDS: INSULIN LISPRO 100 UNIT/ML 3 ML VIAL SUBCUT SCH ×3 (07:30→16:16)
[2019-04-22 08:25] LABS: PLATELET COUNT 83 10^3/uL (150-450)
[2019-04-22 08:27] LABS: OVALOCYTES SLIGHT; POLYCHROMASIA SLIGHT
[2019-04-22 08:28] LABS: ANISOCYTOSIS 3+; PLATELET COMMENT DECREASED; POIKILOCYTOSIS 1+; TEAR DROP CELLS SLIGHT
[2019-04-22] MEDS: SPIRONOLACTONE 25 MG TABLET PO SCH ×2 (09:41→17:03)
[2019-04-22] MEDS: MIDODRINE HCL 5 MG TABLET PO SCH ×3 (09:41→17:04)
[2019-04-22] MEDS: MINERAL OIL/PETROLATUM,WHITE CREAM 114 GM TP SCH ×2 (09:41→17:04)
[2019-04-22] MEDS: FERROUS SULFATE 325 MG TABLET PO SCH (09:41)
[2019-04-22] MEDS: FUROSEMIDE 20 MG TABLET PO SCH ×3 (09:42→17:03)
[2019-04-22] MEDS: LACTULOSE SYRUP 20 GM/30 ML UDCUP PO SCH ×3 (09:42→17:02)
[2019-04-22] MEDS: URSODIOL 300 MG CAPSULE PO SCH ×2 (09:42→21:02)
[2019-04-22] MEDS ORDERED: INSULIN GLARGINE,HUM.REC.ANLOG 1,000 UNIT/10 ML VIAL (PYX) SUBCUT ONE (10:00)
--- NOTE | 2019-04-22 12:24 | ADVANCED CARE ---
- Diagnosis (1) 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 hypertension Diagnosis Current: Yes (2) Bilateral pleural effusion Diagnosis Current: Yes (3) Pneumothorax, right Diagnosis Current: Yes (4) Acute respiratory failure with hypoxia Diagnosis Current: Yes (5) Primary biliary cirrhosis Diagnosis Current: Yes (6) Acute on chronic kidney failure Diagnosis Current: Yes (7) Back pain Diagnosis Current: Yes (8) Diabetes mellitus Diagnosis Current: Yes (9) Hypotension Diagnosis Current: Yes (10) Physical debility Diagnosis Current: Yes (11) Anemia Diagnosis Current: Yes (12) Hepatic encephalopathy Diagnosis Current: Yes (13) Urinary tract infection Diagnosis Current: Yes (14) Hyperkalemia Diagnosis Current: Yes Attendance: The patient's and her son Resuscitation Status: Full Code Discussion: By asked the patient's and her son to step into the family waiting room for discussion. I have been taking care of the patient for a week now. We have had to adjust her medications based on increasing ammonia levels, transiently decreased renal function and despite needing protein to help with her debilitated state it has increased her ammonia level. To get the ammonia level back down she has to have much larger doses of lactulose. This bothers her because of the diarrhea. With the diarrhea will need to monitor the magnesium and potassium. I told the patient's and her son that in my opinion I do not believe that the patient is strong enough to recover to the point where they will accept her for transplant. I explained that she is extremely frail at this point. We are trying to correct multiple issues but seem to have an issue with another disease process every time we try and correct 1 of her comorbidities. I feel that the combination of age and seriousness of illness will not allow her body to recover to the critical point. I explained that this was just my opinion. The patient's did remind me that now that she is drinking the protein drinks it was likely the source of the elevated ammonia level with subsequent hepatic encephalopathy. With increased lactulose this is improving. The patient's and son still want very much to try to qualify for transplant. I then explained the difficult and taxing post transplant care with immunosuppressant medications and frequent visits to the transplant team for reassessment. They did not feel that this would be an issue. I again identified the fact that if she has any chance to qualify it will be with aggressive care with an LTAC setting. Unfortunately at the weekends typically are not when patients are transferred to these facilities. They have requested more records before excepting the patient. I was under the impression that the patient had been accepted and they were just waiting for insurance approval. The family still wants to pursue an aggressive course. I know that the [facility] had given them benchmarks at which the facility would consider transplant. At the same time they suggested hospice care. The family is in a difficult situation and still wishes to be aggressive. Care Planning Goals: There is constant reevaluation of the patient not only by the LTAC but she is closely monitored here at this facility. We are constantly adjusting the treatment to maximize benefit for the patient as they still want to pursue obtaining a liver transplant. At this point consideration of hospice care is not something they are ready for. Document(s) Completed: None Time Spent: 25 minutes
--- NOTE | 2019-04-22 18:42 | PDOC PROGRESS REPORT ---
Subjective Progress Note for:: 04/22/19 Subjective:: Today patient denies any shortness of breath abdominal pain. Patient's feels the patient looks more alert today. Patient's is okay with decreasing lactulose dose to only twice a day. Reason For Visit: ACUTE RENAL FAILURE,PRIMARY BILIARY CHOLANGITIS, Physical Exam Vital Signs: Temp Pulse Resp BP Pulse Ox 98.1 F 68 19 127/41 H 97 04/22/19 15:56 04/22/19 15:56 04/22/19 15:56 04/22/19 15:56 04/22/19 15:56 Intake & Output 04/21/19 04/22/19 04/23/19 06:59 06:59 06:59 Intake Total 594 950 913 Balance 594 950 913 Weight 53.4 kg 52.3 kg 52.3 kg General appearance: PRESENT: no acute distress, cooperative Neck exam: ABSENT: JVD Respiratory exam: PRESENT: crackles - at lung bases, unlabored. ABSENT: tachypnea, wheezes Cardiovascular exam: PRESENT: RRR, +S1, +S2. ABSENT: tachycardia Neurological exam: PRESENT: alert, awake, oriented to person Results Laboratory Results: 04/22/19 06:25 04/22/19 06:25 04/22/19 04/22/19 04/22/19 06:25 06:25 06:25 WBC 3.7 L RBC 3.44 L Hgb 9.9 L Hct 30.2 L MCV 88 MCH 28.8 MCHC 32.8 RDW 30.0 H Plt Count 83 L Seg Neutrophils % 67.5 Sodium 133.9 L Potassium 4.6 Chloride 100 Carbon Dioxide 22 Anion Gap 12 BUN 50 H Creatinine 1.35 H Est GFR ( Amer) 47 L Glucose 303 H Calcium 9.1 Magnesium 1.8 Total Bilirubin 2.8 H AST 21 Alkaline Phosphatase 115 Ammonia 35.4 H Total Protein 6.5 Albumin 3.0 L Impressions: KUB X-Ray 04/07/19 00:28 IMPRESSION: The tip and side hole of the enteric tube project within the gastric lumen. Chest CT 04/08/19 00:00 IMPRESSION: CARDIOMEGALY. LARGE BILATERAL PLEURAL EFFUSIONS WITH COMPRESSIVE ATELECTASIS IN THE LUNG BASES. Head CT 04/08/19 00:00 IMPRESSION: NORMAL BRAIN CT WITHOUT CONTRAST. CHRONIC RIGHT MAXILLARY SINUS DISEASE. EVIDENCE OF ACUTE STROKE: NO. Abdomen Ultrasound 04/10/19 00:00 IMPRESSION: PATENT TIPS SHUNT. VELOCITIES ABOVE. Thoracentesis Ultrasound 04/15/19 00:00 IMPRESSION: SUCCESSFUL THORACENTESIS USING ULTRASOUND GUIDANCE. Chest X-Ray 04/17/19 08:00 IMPRESSION: No pneumothorax. Assessment and Plan - Diagnosis (1) 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 hypertension Is this a current diagnosis for this admission?: Yes Plan: Severe pulmonary hypertension. 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 Data Review: 1. [facility] at [facility] 02/2019 [Dr. Rodarte Pulm HTN specialist]: RV 61/18, MPAP 40, PCWP 23 [I believe elevated PCW must have been due to RV volume/pressure overload causing septum deviation compromising LV output as she was in Pulm HTN crisis at that time and not that left sided induced PHTN], Pulm VR 3.5. No vasoreactivity test done as not indicated for portopulmonary HTN. 2. TTE 04/01/2019: LVEF of 65% with normal LV systolic and diastolic function, no significant abnormalities with AV and MV, but RVSP > 67 mmHg, moderate RV dilation and RV systolic dysfunction 3. TTE 04/11/2019 for reassessment of pulm pressures: EF 55-60%, RV volume/pressure overload w/ moderate dilation, mild RV systolic dysfunction, RVSP 65 mmHg and essentially normal LV function. Continue spironolactone. Lasix dose at reduced dosing of 10 mg 3 times daily given renal function continue trial of sildenafil 20 mg 3 times daily Avoid CCBs and beta-blockers. Follow-up with pulmonary hypertension specialist Dr. 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 s/p repeat right-sided thoracentesis 04/10/2019 yielding 1 L of transudative fluid. s/p repeat right-sided thoracentesis 04/15/2019 yielding 800cc Frequent incentive spirometer after thoras for remnant compressive atelectasis Ultimately, her effusions especially on the right side will continue to reaccum ulate and she will need repeated thoracentesis every 2 to 3 weeks as the ONLY fix for this is liver transplantation and her hepatic hydrothorax has been refractory to TIPS. TIPS was evaluated with abdominal ultrasound Dopplers which shows patency and normal TIPS velocities. Chest tube/pleural catheters are NOT indicated in this patient population as it would lead to significant dehydration, electrolyte derangements and renal failure. There is no significant accumulation of fluid at this time. (3) Pneumothorax, right Is this a current diagnosis for this admission?: Yes Plan: Secondary to thoracentesis. Small apical pneumothorax has resolved on repeat imaging. (4) Acute respiratory failure with hypoxia Is this a current diagnosis for this admission?: Yes Plan: Secondary to hepatic hydrothorax and pulmonary hypertension. Given the chronic and unfixable nature of these 2 conditions in the absence of liver transplantation for which patient does not currently meet candidacy for, I believe this will be a chronic issue for this patient in the absence of liver transplantation. Wean oxygen as tolerated (5) Primary biliary cirrhosis Is this a current diagnosis for this admission?: Yes (6) Hepatic encephalopathy Is this a current diagnosis for this admission?: Yes Plan: Resolved. Continue rifamixin. Lactulose reduced to 40 mg twice daily. (7) Hypotension Qualifiers: Hypotension type: other hypotension type Qualified Code(s): I95.89 - Other hypotension Is this a current diagnosis for this admission?: Yes (8) Acute on chronic kidney failure Qualifiers: Chronic kidney disease stage: stage 3 (moderate) Is this a current diagnosis for this admission?: Yes (9) Diabetes mellitus Qualifiers: Diabetes mellitus type: other specified (including BALJEET) Is this a current diagnosis for this admission?: Yes (10) Anemia Qualifiers: Anemia type: other cause Other causes of anemia: chronic disease, other Qualified Code(s): D63.8 - Anemia in other chronic diseases classified elsewhere Is this a current diagnosis for this admission?: Yes (11) Urinary tract infection Qualifiers: Urinary tract infection type: acute cystitis Hematuria presence: with hematuria Qualified Code(s): N30.01 - Acute cystitis with hematuria Is this a current diagnosis for this admission?: Yes (12) Physical debility Is this a current diagnosis for this admission?: Yes (13) Back pain Qualifiers: Back pain location: low back pain Chronicity: acute Back pain laterality: bilateral Sciatica presence: without sciatica Qualified Code(s): M54.5 - Low back pain Is this a current diagnosis for this admission?: Yes - Time Time Spent with patient: 15-24 minutes
[2019-04-22] MEDS ORDERED: INSULIN GLARGINE,HUM.REC.ANLOG 1,000 UNIT/10 ML VIAL SUBCUT SCH (22:00)
[2019-04-23] MEDS: LEVOTHYROXINE SODIUM 0.15 MG TABLET PO SCH (05:24)
[2019-04-23 05:31] LABS: ANION GAP 14 (5-19); BLOOD UREA NITROGEN 48 mg/dL (7-20); CALCIUM 8.9 mg/dL (8.4-10.2); CARBON DIOXIDE 21 mmol/L (22-30); CHLORIDE 101 mmol/L (98-107); GLUCOSE 270 mg/dL (75-110); POTASSIUM 4.3 mmol/L (3.6-5.0)
[2019-04-23] MEDS: INSULIN LISPRO 100 UNIT/ML 3 ML VIAL SUBCUT SCH ×3 (07:59→18:20)
[2019-04-23] MEDS: SILDENAFIL CITRATE 20 MG TABLET PO SCH ×3 (08:04→18:21)
[2019-04-23] MEDS ORDERED: INSULIN GLARGINE,HUM.REC.ANLOG 1,000 UNIT/10 ML VIAL SUBCUT SCH ×2 (10:00→22:00)
[2019-04-23] MEDS: FUROSEMIDE 20 MG TABLET PO SCH ×3 (10:32→18:20)
[2019-04-23] MEDS: FERROUS SULFATE 325 MG TABLET PO SCH (10:32)
[2019-04-23] MEDS: LACTULOSE SYRUP 20 GM/30 ML UDCUP PO SCH ×2 (10:32→18:20)
[2019-04-23] MEDS: SPIRONOLACTONE 25 MG TABLET PO SCH ×2 (10:33→18:20)
[2019-04-23] MEDS: MIDODRINE HCL 5 MG TABLET PO SCH ×3 (10:33→18:21)
[2019-04-23] MEDS: URSODIOL 300 MG CAPSULE PO SCH ×2 (10:33→21:53)
[2019-04-23] MEDS: MINERAL OIL/PETROLATUM,WHITE CREAM 114 GM TP SCH ×2 (10:34→18:21)
--- NOTE | 2019-04-23 18:44 | PDOC PROGRESS REPORT ---
Subjective Progress Note for:: 04/23/19 Subjective:: Patient has no complaints today. She is ready to continue with physical therapy. Reason For Visit: ACUTE RENAL FAILURE,PRIMARY BILIARY CHOLANGITIS, Physical Exam Vital Signs: Temp Pulse Resp BP Pulse Ox 97.2 F 76 16 109/44 L 98 04/23/19 08:48 04/23/19 14:00 04/23/19 08:48 04/23/19 16:00 04/23/19 08:48 Intake & Output 04/22/19 04/23/19 04/24/19 06:59 06:59 06:59 Intake Total 950 1413 150 Balance 950 1413 150 Weight 52.3 kg 50.5 kg General appearance: PRESENT: no acute distress, cooperative Neck exam: ABSENT: JVD Respiratory exam: PRESENT: symmetrical, unlabored. ABSENT: accessory muscle use, retraction, tachypnea, wheezes Cardiovascular exam: PRESENT: RRR, +S1, +S2. ABSENT: tachycardia GI/Abdominal exam: PRESENT: soft. ABSENT: ascites, rebound, rigid, tenderness Neurological exam: PRESENT: alert, awake Results Laboratory Results: 04/22/19 06:25 04/23/19 04:21 04/23/19 04:21 Sodium 135.7 L Potassium 4.3 Chloride 101 Carbon Dioxide 21 L Anion Gap 14 BUN 48 H Creatinine 1.38 H Est GFR ( Amer) 46 L Glucose 270 H Calcium 8.9 Impressions: KUB X-Ray 04/07/19 00:28 IMPRESSION: The tip and side hole of the enteric tube project within the gastric lumen. Chest CT 04/08/19 00:00 IMPRESSION: CARDIOMEGALY. LARGE BILATERAL PLEURAL EFFUSIONS WITH COMPRESSIVE ATELECTASIS IN THE LUNG BASES. Head CT 04/08/19 00:00 IMPRESSION: NORMAL BRAIN CT WITHOUT CONTRAST. CHRONIC RIGHT MAXILLARY SINUS DISEASE. EVIDENCE OF ACUTE STROKE: NO. Abdomen Ultrasound 04/10/19 00:00 IMPRESSION: PATENT TIPS SHUNT. VELOCITIES ABOVE. Thoracentesis Ultrasound 04/15/19 00:00 IMPRESSION: SUCCESSFUL THORACENTESIS USING ULTRASOUND GUIDANCE. Chest X-Ray 04/17/19 08:00 IMPRESSION: No pneumothorax. Assessment and Plan - Diagnosis (1) 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 hypertension Is this a current diagnosis for this admission?: Yes Plan: Severe pulmonary hypertension. 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 Data Review: 1. [facility] at [facility] 02/2019 [Dr. Rodarte Pulm HTN specialist]: RV 61/18, MPAP 40, PCWP 23 [I believe elevated PCW must have been due to RV volume/pressure overload causing septum deviation compromising LV output as she was in Pulm HTN crisis at that time and not that left sided induced PHTN], Pulm VR 3.5. No vasoreactivity test done as not indicated for portopulmonary HTN. 2. TTE 04/01/2019: LVEF of 65% with normal LV systolic and diastolic function, no significant abnormalities with AV and MV, but RVSP > 67 mmHg, moderate RV dilation and RV systolic dysfunction 3. TTE 04/11/2019 for reassessment of pulm pressures: EF 55-60%, RV volume/pr essure overload w/ moderate dilation, mild RV systolic dysfunction, RVSP 65 mmHg and essentially normal LV function. Continue spironolactone. Lasix dose at reduced dosing of 10 mg 3 times daily given renal function continue trial of sildenafil 20 mg 3 times daily Avoid CCBs and beta-blockers. Follow-up with pulmonary hypertension specialist Dr. 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 s/p repeat right-sided thoracentesis 04/10/2019 yielding 1 L of transudative fluid. s/p repeat right-sided thoracentesis 04/15/2019 yielding 800cc Frequent incentive spirometer after thoras for remnant compressive atelectasis Ultimately, her effusions especially on the right side will continue to reaccumulate and she will need repeated thoracentesis every 2 to 3 weeks as the ONLY fix for this is liver transplantation and her hepatic hydrothorax has been refractory to TIPS. TIPS was evaluated with abdominal ultrasound Dopplers which shows patency and normal TIPS velocities. Chest tube/pleural catheters are NOT indicated in this patient population as it would lead to significant dehydration, electrolyte derangements and renal failure. There is no significant accumulation of fluid at this time. (3) Pneumothorax, right Is this a current diagnosis for this admission?: Yes Plan: Secondary to thoracentesis. Small apical pneumothorax has resolved on repeat imaging. (4) Acute respiratory failure with hypoxia Is this a current diagnosis for this admission?: Yes Plan: Secondary to hepatic hydrothorax and pulmonary hypertension. Given the chronic and unfixable nature of these 2 conditions in the absence of liver transplantation for which patient does not currently meet candidacy for, I believe this will be a chronic issue for this patient in the absence of liver transplantation. Wean oxygen as tolerated (5) Primary biliary cirrhosis Is this a current diagnosis for this admission?: Yes (6) Hepatic encephalopathy Is this a current diagnosis for this admission?: Yes (7) Hypotension Qualifiers: Hypotension type: other hypotension type Qualified Code(s): I95.89 - Other hypotension Is this a current diagnosis for this admission?: Yes (8) Acute on chronic kidney failure Qualifiers: Chronic kidney disease stage: stage 3 (moderate) Is this a current diagnosis for this admission?: Yes (9) Diabetes mellitus Qualifiers: Diabetes mellitus type: other specified (including BALJEET) Is this a current diagnosis for this admission?: Yes Plan: Adjusted patient's insulin dose due to hypoglycemia today. (10) Anemia Qualifiers: Anemia type: other cause Other causes of anemia: chronic disease, other Qualified Code(s): D63.8 - Anemia in other chronic diseases classified elsewhere Is this a current diagnosis for this admission?: Yes (11) Urinary tract infection Qualifiers: Urinary tract infection type: acute cystitis Hematuria presence: with hematuria Qualified Code(s): N30.01 - Acute cystitis with hematuria Is this a current diagnosis for this admission?: Yes (12) Physical debility Is this a current diagnosis for this admission?: Yes (13) Back pain Qualifiers: Back pain location: low back pain Chronicity: acute Back pain laterality: bilateral Sciatica presence: without sciatica Qualified Code(s): M54.5 - Low back pain Is this a current diagnosis for this admission?: Yes - Time Time Spent with patient: Less than 15 minutes
[2019-04-23] MEDS: MELATONIN 5 MG TABLET PO PRN (21:53)
[2019-04-24] MEDS: LEVOTHYROXINE SODIUM 0.15 MG TABLET PO SCH (05:17)
[2019-04-24] MEDS: SILDENAFIL CITRATE 20 MG TABLET PO SCH ×3 (07:51→18:43)
[2019-04-24] MEDS: INSULIN LISPRO 100 UNIT/ML 3 ML VIAL SUBCUT SCH ×3 (07:51→17:35)
[2019-04-24] MEDS: FERROUS SULFATE 325 MG TABLET PO SCH (10:10)
[2019-04-24] MEDS: INSULIN GLARGINE,HUM.REC.ANLOG 1,000 UNIT/10 ML VIAL SUBCUT SCH ×2 (10:11→22:31)
[2019-04-24] MEDS: FUROSEMIDE 20 MG TABLET PO SCH ×3 (10:11→18:42)
[2019-04-24] MEDS: LACTULOSE SYRUP 20 GM/30 ML UDCUP PO SCH ×2 (10:11→18:41)
[2019-04-24] MEDS: MIDODRINE HCL 5 MG TABLET PO SCH ×3 (10:12→18:43)
[2019-04-24] MEDS: MINERAL OIL/PETROLATUM,WHITE CREAM 114 GM TP SCH ×2 (10:12→18:42)
[2019-04-24] MEDS: SPIRONOLACTONE 25 MG TABLET PO SCH ×2 (10:12→18:42)
[2019-04-24] MEDS: URSODIOL 300 MG CAPSULE PO SCH ×2 (10:12→22:31)
--- NOTE | 2019-04-24 17:49 | PDOC PROGRESS REPORT ---
Subjective Progress Note for:: 04/24/19 Subjective:: Patient is doing well today. Denies any issues with breathing. Denies any chest pain lightheadedness or dizziness. Reason For Visit: ACUTE RENAL FAILURE,PRIMARY BILIARY CHOLANGITIS, Physical Exam Vital Signs: Temp Pulse Resp BP Pulse Ox 97.3 F 67 16 116/43 L 100 04/24/19 15:12 04/24/19 15:12 04/24/19 15:12 04/24/19 15:12 04/24/19 15:12 Intake & Output 04/23/19 04/24/19 04/25/19 06:59 06:59 06:59 Intake Total 1413 150 50 Balance 1413 150 50 Weight 50.5 kg 50.7 kg General appearance: PRESENT: no acute distress, cooperative Neck exam: ABSENT: JVD Respiratory exam: PRESENT: symmetrical, unlabored. ABSENT: chest wall tenderness, tachypnea, wheezes Cardiovascular exam: PRESENT: +S1, +S2. ABSENT: tachycardia GI/Abdominal exam: PRESENT: soft. ABSENT: ascites Results Laboratory Results: 04/22/19 06:25 04/23/19 04:21 Impressions: KUB X-Ray 04/07/19 00:28 IMPRESSION: The tip and side hole of the enteric tube project within the gastric lumen. Chest CT 04/08/19 00:00 IMPRESSION: CARDIOMEGALY. LARGE BILATERAL PLEURAL EFFUSIONS WITH COMPRESSIVE ATELECTASIS IN THE LUNG BASES. Head CT 04/08/19 00:00 IMPRESSION: NORMAL BRAIN CT WITHOUT CONTRAST. CHRONIC RIGHT MAXILLARY SINUS DISEASE. EVIDENCE OF ACUTE STROKE: NO. Abdomen Ultrasound 04/10/19 00:00 IMPRESSION: PATENT TIPS SHUNT. VELOCITIES ABOVE. Thoracentesis Ultrasound 04/15/19 00:00 IMPRESSION: SUCCESSFUL THORACENTESIS USING ULTRASOUND GUIDANCE. Chest X-Ray 04/17/19 08:00 IMPRESSION: No pneumothorax. Assessment and Plan - Diagnosis (1) 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 hypertension Is this a current diagnosis for this admission?: Yes (2) Bilateral pleural effusion Is this a current diagnosis for this admission?: Yes (3) Pneumothorax, right Is this a current diagnosis for this admission?: Yes (4) Acute respiratory failure with hypoxia Is this a current diagnosis for this admission?: Yes (5) Primary biliary cirrhosis Is this a current diagnosis for this admission?: Yes (6) Hepatic encephalopathy Is this a current diagnosis for this admission?: Yes (7) Hypotension Qualifiers: Hypotension type: other hypotension type Qualified Code(s): I95.89 - Other hypotension Is this a current diagnosis for this admission?: Yes (8) Acute on chronic kidney failure Qualifiers: Chronic kidney disease stage: stage 3 (moderate) Is this a current diagnosis for this admission?: Yes (9) Diabetes mellitus Qualifiers: Diabetes mellitus type: other specified (including BALJEET) Is this a current diagnosis for this admission?: Yes (10) Anemia Qualifiers: Anemia type: other cause Other causes of anemia: chronic disease, other Qualified Code(s): D63.8 - Anemia in other chronic diseases classified elsewhere Is this a current diagnosis for this admission?: Yes (11) Urinary tract infection Qualifiers: Urinary tract infection type: acute cystitis Hematuria presence: with hematuria Qualified Code(s): N30.01 - Acute cystitis with hematuria Is this a current diagnosis for this admission?: Yes (12) Physical debility Is this a current diagnosis for this admission?: Yes (13) Back pain Qualifiers: Back pain location: low back pain Chronicity: acute Back pain laterality: bilateral Sciatica presence: without sciatica Qualified Code(s): M54.5 - Low back pain Is this a current diagnosis for this admission?: Yes - Plan Summary Summary: Unfortunately, LTAC facility denied approval for admission into facility. We will continue current regimen of diuretics. Her insulin regimen was adjusted further today given continued hyperglycemia and uncontrolled diabetes. Patient looks stable at this time and is appropriate for discharge to nursing facility. Of course, she will continue to require close follow-up and monitoring given her multiple significant comorbid medical conditions. - Time Time Spent with patient: Less than 15 minutes
[2019-04-24] MEDS: MELATONIN 5 MG TABLET PO PRN (22:31)
[2019-04-25] MEDS: LEVOTHYROXINE SODIUM 0.15 MG TABLET PO SCH (05:38)
[2019-04-25 07:36] LABS: ANION GAP 11 (5-19); BLOOD UREA NITROGEN 47 mg/dL (7-20); CALCIUM 8.6 mg/dL (8.4-10.2); CARBON DIOXIDE 25 mmol/L (22-30); CHLORIDE 104 mmol/L (98-107); GLUCOSE 122 mg/dL (75-110); POTASSIUM 3.7 mmol/L (3.6-5.0)
[2019-04-25] MEDS: INSULIN LISPRO 100 UNIT/ML 3 ML VIAL SUBCUT SCH ×3 (07:47→16:10)
[2019-04-25] MEDS: LACTULOSE SYRUP 20 GM/30 ML UDCUP PO SCH ×2 (10:39→18:27)
[2019-04-25] MEDS: URSODIOL 300 MG CAPSULE PO SCH ×2 (10:40→22:04)
[2019-04-25] MEDS: FERROUS SULFATE 325 MG TABLET PO SCH (10:40)
[2019-04-25] MEDS: FUROSEMIDE 20 MG TABLET PO SCH ×3 (10:41→18:29)
[2019-04-25] MEDS: SPIRONOLACTONE 25 MG TABLET PO SCH ×2 (10:41→18:27)
[2019-04-25] MEDS: SILDENAFIL CITRATE 20 MG TABLET PO SCH ×3 (10:41→18:27)
[2019-04-25] MEDS: MIDODRINE HCL 5 MG TABLET PO SCH ×3 (10:42→18:28)
[2019-04-25] MEDS: INSULIN GLARGINE,HUM.REC.ANLOG 1,000 UNIT/10 ML VIAL SUBCUT SCH ×2 (10:46→22:03)
[2019-04-25] MEDS: MINERAL OIL/PETROLATUM,WHITE CREAM 114 GM TP SCH ×2 (10:47→18:27)
--- NOTE | 2019-04-25 16:57 | PDOC PROGRESS REPORT ---
Subjective Progress Note for:: 04/25/19 Subjective:: Patient states that Reason For Visit: ACUTE RENAL FAILURE,PRIMARY BILIARY CHOLANGITIS, Physical Exam Vital Signs: Temp Pulse Resp BP Pulse Ox 98.9 F 68 16 106/35 L 95 04/25/19 12:00 04/25/19 14:00 04/25/19 12:00 04/25/19 12:00 04/25/19 12:00 Intake & Output 04/24/19 04/25/19 04/26/19 06:59 06:59 06:59 Intake Total 150 430 120 Output Total 2 Balance 150 428 120 Weight 50.7 kg 50.2 kg Results Laboratory Results: 04/22/19 06:25 04/25/19 06:22 04/25/19 06:22 Sodium 139.7 Potassium 3.7 Chloride 104 Carbon Dioxide 25 Anion Gap 11 BUN 47 H Creatinine 1.23 Est GFR ( Amer) 52 L Glucose 122 H Calcium 8.6 Magnesium 1.7 Impressions: KUB X-Ray 04/07/19 00:28 IMPRESSION: The tip and side hole of the enteric tube project within the gastric lumen. Chest CT 04/08/19 00:00 IMPRESSION: CARDIOMEGALY. LARGE BILATERAL PLEURAL EFFUSIONS WITH COMPRESSIVE ATELECTASIS IN THE LUNG BASES. Head CT 04/08/19 00:00 IMPRESSION: NORMAL BRAIN CT WITHOUT CONTRAST. CHRONIC RIGHT MAXILLARY SINUS DISEASE. EVIDENCE OF ACUTE STROKE: NO. Abdomen Ultrasound 04/10/19 00:00 IMPRESSION: PATENT TIPS SHUNT. VELOCITIES ABOVE. Thoracentesis Ultrasound 04/15/19 00:00 IMPRESSION: SUCCESSFUL THORACENTESIS USING ULTRASOUND GUIDANCE. Chest X-Ray 04/17/19 08:00 IMPRESSION: No pneumothorax. Assessment and Plan - Diagnosis (1) 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 hypertension Is this a current diagnosis for this admission?: Yes (2) Bilateral pleural effusion Is this a current diagnosis for this admission?: Yes (3) Pneumothorax, right Is this a current diagnosis for this admission?: Yes (4) Acute respiratory failure with hypoxia Is this a current diagnosis for this admission?: Yes (5) Primary biliary cirrhosis Is this a current diagnosis for this admission?: Yes (6) Hepatic encephalopathy Is this a current diagnosis for this admission?: Yes (7) Hypotension Qualifiers: Hypotension type: other hypotension type Qualified Code(s): I95.89 - Other hypotension Is this a current diagnosis for this admission?: Yes (8) Acute on chronic kidney failure Qualifiers: Chronic kidney disease stage: stage 3 (moderate) Is this a current diagnosis for this admission?: Yes (9) Diabetes mellitus Qualifiers: Diabetes mellitus type: other specified (including BALJEET) Is this a current diagnosis for this admission?: Yes (10) Anemia Qualifiers: Anemia type: other cause Other causes of anemia: chronic disease, other Qualified Code(s): D63.8 - Anemia in other chronic diseases classified elsewhere Is this a current diagnosis for this admission?: Yes (11) Urinary tract infection Qualifiers: Urinary tract infection type: acute cystitis Hematuria presence: with hematuria Qualified Code(s): N30.01 - Acute cystitis with hematuria Is this a current diagnosis for this admission?: Yes (12) Physical debility Is this a current diagnosis for this admission?: Yes (13) Back pain Qualifiers: Back pain location: low back pain Chronicity: acute Back pain laterality: bilateral Sciatica presence: without sciatica Qualified Code(s): M54.5 - Low back pain Is this a current diagnosis for this admission?: Yes - Plan Summary Summary: Unfortunately, LTAC facility denied approval for admission into facility. We will continue current regimen of diuretics. Her insulin regimen was adjusted further today given continued hyperglycemia and uncontrolled diabetes. Patient looks stable at this time and is appropriate for discharge to nursing facility. Of course, she will continue to require close follow-up and monitoring given her multiple significant comorbid medical conditions.
--- NOTE | 2019-04-25 17:12 | PDOC PROGRESS REPORT ---
Subjective Progress Note for:: 04/25/19 Subjective:: Patient doing well today. Has no complaints. Reason For Visit: ACUTE RENAL FAILURE,PRIMARY BILIARY CHOLANGITIS, Physical Exam Vital Signs: Temp Pulse Resp BP Pulse Ox 98.9 F 68 16 106/35 L 95 04/25/19 12:00 04/25/19 14:00 04/25/19 12:00 04/25/19 12:00 04/25/19 12:00 Intake & Output 04/24/19 04/25/19 04/26/19 06:59 06:59 06:59 Intake Total 150 430 120 Output Total 2 Balance 150 428 120 Weight 50.7 kg 50.2 kg General appearance: PRESENT: no acute distress, cooperative Neck exam: ABSENT: JVD Respiratory exam: PRESENT: clear to auscultation josh Cardiovascular exam: PRESENT: RRR, +S1, +S2. ABSENT: tachycardia Neurological exam: PRESENT: alert, awake Results Laboratory Results: 04/22/19 06:25 04/25/19 06:22 04/25/19 06:22 Sodium 139.7 Potassium 3.7 Chloride 104 Carbon Dioxide 25 Anion Gap 11 BUN 47 H Creatinine 1.23 Est GFR ( Amer) 52 L Glucose 122 H Calcium 8.6 Magnesium 1.7 Impressions: KUB X-Ray 04/07/19 00:28 IMPRESSION: The tip and side hole of the enteric tube project within the gastric lumen. Chest CT 04/08/19 00:00 IMPRESSION: CARDIOMEGALY. LARGE BILATERAL PLEURAL EFFUSIONS WITH COMPRESSIVE ATELECTASIS IN THE LUNG BASES. Head CT 04/08/19 00:00 IMPRESSION: NORMAL BRAIN CT WITHOUT CONTRAST. CHRONIC RIGHT MAXILLARY SINUS DISEASE. EVIDENCE OF ACUTE STROKE: NO. Abdomen Ultrasound 04/10/19 00:00 IMPRESSION: PATENT TIPS SHUNT. VELOCITIES ABOVE. Thoracentesis Ultrasound 04/15/19 00:00 IMPRESSION: SUCCESSFUL THORACENTESIS USING ULTRASOUND GUIDANCE. Chest X-Ray 04/17/19 08:00 IMPRESSION: No pneumothorax. Assessment and Plan - Diagnosis (1) 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 hypertension Is this a current diagnosis for this admission?: Yes (2) Bilateral pleural effusion Is this a current diagnosis for this admission?: Yes (3) Pneumothorax, right Is this a current diagnosis for this admission?: Yes (4) Acute respiratory failure with hypoxia Is this a current diagnosis for this admission?: Yes (5) Primary biliary cirrhosis Is this a current diagnosis for this admission?: Yes (6) Hepatic encephalopathy Is this a current diagnosis for this admission?: Yes (7) Hypotension Qualifiers: Hypotension type: other hypotension type Qualified Code(s): I95.89 - Other hypotension Is this a current diagnosis for this admission?: Yes (8) Acute on chronic kidney failure Qualifiers: Chronic kidney disease stage: stage 3 (moderate) Is this a current diagnosis for this admission?: Yes (9) Diabetes mellitus Qualifiers: Diabetes mellitus type: other specified (including BALJEET) Is this a current diagnosis for this admission?: Yes (10) Anemia Qualifiers: Anemia type: other cause Other causes of anemia: chronic disease, other Qualified Code(s): D63.8 - Anemia in other chronic diseases classified elsewhere Is this a current diagnosis for this admission?: Yes (11) Urinary tract infection Qualifiers: Urinary tract infection type: acute cystitis Hematuria presence: with hematuria Qualified Code(s): N30.01 - Acute cystitis with hematuria Is this a current diagnosis for this admission?: Yes (12) Physical debility Is this a current diagnosis for this admission?: Yes (13) Back pain Qualifiers: Back pain location: low back pain Chronicity: acute Back pain laterality: bilateral Sciatica presence: without sciatica Qualified Code(s): M54.5 - Low back pain Is this a current diagnosis for this admission?: Yes - Plan Summary Summary: 04/24/2019 Unfortunately, LTAC facility denied approval for admission into facility. We will continue current regimen of diuretics. Her insulin regimen was adjusted further today given continued hyperglycemia and uncontrolled diabetes. Patient looks stable at this time and is appropriate for discharge to nursing facility. Of course, she will continue to require close follow-up and monitoring given her multiple significant comorbid medical conditions. 04/25/2019 Jacque [account planner] as well as myself had extensive conversation with patient and regarding disposition. We have informed them that the LTAC has declined approval and will pursue SNF for home health. At this time, the agreeable to pursuing home health as patient would like to go home after being in the hospital for so long. I have called patient's primary care provider Dr. Loza today and given him a thorough signout of patient's hospital stay and he will coordinate patient's care once discharged. He states that he has access to the system so he will be able to also reviewed the records. We will plan for discharge to home health tomorrow and will coordinate getting everything set up. At this time patient remained stable and blood work today reveals improved renal function. - Time Time Spent with patient: 25-34 minutes
[2019-04-26] MEDS: LEVOTHYROXINE SODIUM 0.15 MG TABLET PO SCH (05:18)
[2019-04-26] MEDS: INSULIN LISPRO 100 UNIT/ML 3 ML VIAL SUBCUT SCH ×2 (08:24→11:40)
[2019-04-26] MEDS: SILDENAFIL CITRATE 20 MG TABLET PO SCH ×2 (08:24→11:39)
[2019-04-26] MEDS: FUROSEMIDE 20 MG TABLET PO SCH ×2 (09:33→14:28)
[2019-04-26] MEDS: LACTULOSE SYRUP 20 GM/30 ML UDCUP PO SCH (09:33)
[2019-04-26] MEDS: SPIRONOLACTONE 25 MG TABLET PO SCH (09:34)
[2019-04-26] MEDS: FERROUS SULFATE 325 MG TABLET PO SCH (09:34)
[2019-04-26] MEDS: MIDODRINE HCL 5 MG TABLET PO SCH ×2 (09:35→14:27)
[2019-04-26] MEDS: URSODIOL 300 MG CAPSULE PO SCH (09:35)
[2019-04-26] MEDS: INSULIN GLARGINE,HUM.REC.ANLOG 1,000 UNIT/10 ML VIAL SUBCUT SCH (09:35)
[2019-04-26] MEDS: MINERAL OIL/PETROLATUM,WHITE CREAM 114 GM TP SCH (09:36)
--- NOTE | 2019-04-26 12:17 | PDOC DISCHARGE SUMMARY ---
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 hypertension Is this a current diagnosis for this admission?: Yes (2) Bilateral pleural effusion Is this a current diagnosis for this admission?: Yes (3) Pneumothorax, right Is this a current diagnosis for this admission?: Yes (4) Acute respiratory failure with hypoxia Is this a current diagnosis for this admission?: Yes (5) Primary biliary cirrhosis Is this a current diagnosis for this admission?: Yes (6) Hepatic encephalopathy Is this a current diagnosis for this admission?: Yes (7) Hypotension Is this a current diagnosis for this admission?: Yes (8) Acute on chronic kidney failure Is this a current diagnosis for this admission?: Yes (9) Diabetes mellitus Is this a current diagnosis for this admission?: Yes (10) Anemia Is this a current diagnosis for this admission?: Yes (11) Urinary tract infection Is this a current diagnosis for this admission?: Yes (12) Physical debility Is this a current diagnosis for this admission?: Yes (13) Back pain Is this a current diagnosis for this admission?: Yes - Assessment Summary: 04/24/2019 Unfortunately, LTAC facility denied approval for admission into facility. We will continue current regimen of diuretics. Her insulin regimen was adjusted further today given continued hyperglycemia and uncontrolled diabetes. Patient looks stable at this time and is appropriate for discharge to nursing facility. Of course, she will continue to require close follow-up and monitoring given her multiple significant comorbid medical conditions. 04/25/2019 Jacque [conservation planner] as well as myself had extensive conversation with patient and regarding disposition. We have informed them that the LTAC has declined approval and will pursue SNF for home health. At this time, the agreeable to pursuing home health as patient would like to go home after being in the hospital for so long. I have called patient's primary care provider Dr. Thomas today and given him a thorough signout of patient's hospital stay and he will coordinate patient's care once discharged. He states that he has access to the system so he will be able to also reviewed the records. We will plan for discharge to home health tomorrow and will coordinate getting everything set up. At this time patient remained stable and blood work today reveals improved renal function. - Additional Information Resuscitation Status: Full Code Discharge Diet: Other (Comments) - Low sodium diet. Discharge Activity: Activity As Tolerated Referrals: LACEY THOMAS MD [COMMUNITY BASED STAFF] - ( will coordinate post discharge care. Please call office for you follow up date and time.) JIGAR LAUREANO MD [NO LOCAL MD] - LATRICIA BERKOWITZ MD [ACTIVE STAFF] - PINA CROOKS MD [NO LOCAL MD] - Prescriptions: Ursodiol [Actigall 300 mg Capsule] 300 mg PO Q12 30 Days Spironolactone [Aldactone 25 mg Tablet] 50 mg PO BID 30 Days tablet Lactulose [Cephulac Syrup 20 gm/30 ml Udcup] 40 gm PO BID 30 Days udc Ferrous Sulfate [Feosol 325 mg Tablet] 325 mg PO DAILY #30 tablet Potassium Chloride [Klor-Con M20] 20 mg PO DAILY 30 Days Insulin Glargine,Hum.rec.anlog [Lantus Insulin 100 Unit/1 ml 10 ml] 12 unit SUBC UT DAILY #10 ml Furosemide [Lasix 20 mg Tablet] 10 mg PO TID 30 Days tablet Levothyroxine Sodium 150 mcg PO Q6AM 30 Days Midodrine HCl [Proamatine 5 mg Tablet] 10 mg PO TID 30 Days tablet Sildenafil Citrate [Revatio 20 mg Tablet] 20 mg PO MEALS #90 tablet Home Medications: Pantoprazole Sodium [Protonix [address] Tablet] 40 mg PO QAM 03/14/19 Ferrous Sulfate [Feosol 325 mg Tablet] 325 mg PO DAILY #30 tablet 04/26/19 Furosemide [Lasix 20 mg Tablet] 10 mg PO TID 30 Days tablet 04/26/19 Insulin Glargine,Hum.rec.anlog [Lantus Insulin 100 Unit/1 ml 10 ml] 10 unit SUB CUT QHS unit 04/26/19 Insulin Glargine,Hum.rec.anlog [Lantus Insulin 100 Unit/1 ml 10 ml] 12 unit SUBCUT DAILY #10 ml 04/26/19 Lactulose [Cephulac Syrup 20 gm/30 ml Udcup] 40 gm PO BID 30 Days udc 04/26/19 Levothyroxine Sodium 150 mcg PO Q6AM 30 Days 04/26/19 Midodrine HCl [Proamatine 5 mg Tablet] 10 mg PO TID 30 Days tablet 04/26/19 Potassium Chloride [Klor-Con M20] 20 mg PO DAILY 30 Days 04/26/19 Sildenafil Citrate [Revatio 20 mg Tablet] 20 mg PO MEALS #90 tablet 04/26/19 Spironolactone [Aldactone 25 mg Tablet] 50 mg PO BID 30 Days tablet 04/26/19 Ursodiol [Actigall 300 mg Capsule] 300 mg PO Q12 30 Days 04/26/19 History of Present Illiness History of Present Illness: MAURA CHRIS is a 68 year old female transferred from [facility] following critical care of 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 Additionally her past medical history includes renal failure, pulmonary hypertension, anemia, coagulopathy, thrombocytopenia, hypotension, insulin- dependent diabetes and recurrent hepatic encephalopathy. Essentially she was successfully treated and stabilized for complications of primary biliary sclerosis with volume overload please see discharge summary for complete details. She remains with progressive hepatic cirrhosis, hypotension, renal failure, anemia and profound debility. Hospital Course Hospital Course: Patient had a very prolonged and extensive stay in the hospital with treatment of multiple comorbid medical conditions. We also had several palliative care discussions with patient and had recommended hospice for the patient and family opted for continued treatment with the hope of one day qualifying for liver transplantation. Very briefly, [facility] after deemed not to be an appropriate candidate for liver transplantation for primary biliary cirrhosis due to her elevated pulmonary pressures with sever pulmonary hypertension and PVR of 3.5 on right heart catheterization as well as her poor functional status. Palliative care has been recommended by the manager of change at [facility] but also stated that if pulmonary pressures should improve and functional status is well, they would reconsider candidacy. 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 This is also partly responsible for her acute hypoxic respiratory failure as well as from her severe pulmonary hypertension. Patient is being discharged on home health with home oxygen and there has been no evidence of reaccumulation since her third thoracentesis. Patient has been informed that she will likely need repeated thoracentesis in the future and this will be coordinated by her primary care provider Dr Thomas whom I have called and fully briefed about patient's current conditions and events during her hospital stay. Patient was also treated for hepatic encephalopathy initially with lactulose and Rifamixin. Rifamixin was later stopped due to dehydration. For patient's hepatic hydrothorax she is to continue on spironolactone and Lasix. She was started on sildenafil for her severe pulmonary hypertension and should follow-up for repeat echocardiogram. Patient was also treated with antibiotics for urinary tract infection during her stay. Patient was noted to be hypotensive and has been placed on midodrine. Hypotension is likely secondary to her cirrhotic state causing peripheral vasodilation. Patient has CKD but had JOHNATHON superimposed creatinine of around 1.9-2 upon presentation but has improved with gentle diuresis. Creatinine now stable around 1.2-1.4. Patient's diabetes regimen also adjusted. Patient is scheduled to follow-up with her primary care provider, her manager of change and her gastroenterology and supervisor machine setter. Patient has been set up for home health with physical, occupational therapy as well as penitentiary and home health aide. She will need close monitoring given her multiple organ failure and multiple comorbid medical conditions. Please see below for further elaborate details. Data Review: 1. [facility] [Dr. Rodarte Pulm HTN specialist]: RV 61/18, MPAP 40, PCWP 23 [I believe elevated PCW must have been due to RV volume/pressure overload causing septum deviation compromising LV output as she was in Pulm HTN crisis at that time and not that left sided induced PHTN], Pulm VR 3.5. No vasoreactivity test done as not indicated for portopulmonary HTN. 2. TTE 04/01/2019: LVEF of 65% with normal LV systolic and diastolic function, no significant abnormalities with AV and MV, but RVSP > 67 mmHg, moderate RV dilation and RV systolic dysfunction 3. TTE 04/11/2019 for reassessment of pulm pressures: EF 55-60%, RV volume/pressure overload w/ moderate dilation, mild RV systolic dysfunction, RVSP 65 mmHg and essentially normal LV function Refractory hepatic hydrothorax despite TIPS plus some component from Pulmonary HTN s/p right-sided thoracentesis 04/01/2019 yielding 1 L of transudative fluid. s/p repeat right-sided thoracentesis 04/10/2019 yielding 1 L of transudative fluid. s/p repeat right-sided thoracentesis 04/15/2019 yielding 800cc Frequent incentive spirometer after thoras for remnant compressive atelectasis Ultimately, her effusions especially on the right side will continue to reaccumulate and she will need repeated evaluation for thoracentesis every 2 to 3 weeks as the ONLY fix for this is liver transplantation and her hepatic hydrothorax has been refractory to TIPS. TIPS was evaluated with abdominal ultrasound Dopplers which shows patency and normal TIPS velocities. Chest tube/pleural catheters are NOT indicated in this patient population as it would lead to significant dehydration, electrolyte derangements and renal failure. Physical Exam Vital Signs: Temp Pulse Resp BP Pulse Ox 97.5 F 77 16 102/38 L 93 04/26/19 07:29 04/26/19 07:29 04/26/19 07:29 04/26/19 08:08 04/26/19 07:29 Intake & Output 04/25/19 04/26/19 04/27/19 06:59 06:59 06:59 Intake Total 430 240 Output Total 2 Balance 428 240 Weight 50.2 kg 49.4 kg General appearance: PRESENT: no acute distress, cooperative Neck exam: ABSENT: JVD Respiratory exam: PRESENT: unlabored. ABSENT: tachypnea, wheezes Cardiovascular exam: PRESENT: RRR, +S1, +S2. ABSENT: irregular rhythm, ta chycardia Musculoskeletal exam: PRESENT: ambulatory Neurological exam: PRESENT: alert, awake, oriented to person, oriented to place, oriented to time, oriented to situation Results Laboratory Results: WBC 3.7 10^3/uL (4.0-10.5) L 04/22/19 06:25 RBC 3.44 10^6/uL (3.72-5.28) L 04/22/19 06:25 Hgb 9.9 g/dL (12.0-15.5) L 04/22/19 06:25 Hct 30.2 % (36.0-47.0) L 04/22/19 06:25 MCV 88 fl (80-97) 04/22/19 06:25 MCH 28.8 pg (27.0-33.4) 04/22/19 06:25 MCHC 32.8 g/dL (32.0-36.0) 04/22/19 06:25 RDW 30.0 % (11.5-14.0) H 04/22/19 06:25 Plt Count 83 10^3/uL (150-450) L 04/22/19 06:25 Lymph % (Auto) 17.0 % (13-45) 04/22/19 06:25 [place] % (Auto) 11.1 % (3-13) 04/22/19 06:25 Eos % (Auto) 3.6 % (0-6) 04/22/19 06:25 Baso % (Auto) 0.8 % (0-2) 04/22/19 06:25 Reticulocyte # 0.091 10^6/uL (0.028-0.122) 03/28/19 06:17 Absolute Neuts (auto) 2.5 10^3/uL (1.7-8.2) 04/22/19 06:25 Absolute Lymphs (auto) 0.6 10^3/uL (0.5-4.7) 04/22/19 06:25 Absolute Monos (auto) 0.4 10^3/uL (0.1-1.4) 04/22/19 06:25 Absolute Eos (auto) 0.1 10^3/uL (0.0-0.6) 04/22/19 06:25 Absolute Basos (auto) 0.0 10^3/uL (0.0-0.2) 04/22/19 06:25 Seg Neutrophils % 67.5 % (42-78) 04/22/19 06:25 Toxic Granulation SLIGHT 04/03/19 04:07 Toxic Vacuolation PRESENT 04/03/19 04:07 Platelet Comment DECREASED 04/22/19 06:25 Polychromasia SLIGHT 04/22/19 06:25 Hypochromasia 1+ 04/07/19 05:26 Poikilocytosis 1+ 04/22/19 06:25 Basophilic Stippling PRESENT 04/04/19 09:16 Anisocytosis 3+ 04/22/19 06:25 Microcytosis SLIGHT 04/03/19 04:07 Tear Drop Cells SLIGHT 04/22/19 06:25 Ovalocytes SLIGHT 04/22/19 06:25 Schistocytes SLIGHT 04/06/19 04:46 Retic Count (auto) 2.96 % (0.66-2.85) H 03/28/19 06:17 PT 18.3 SEC (11.4-15.4) H 04/15/19 04:45 INR 1.50 04/15/19 04:45 APTT 35.8 SEC (23.5-35.8) 04/01/19 05:36 Carbonic Acid 1.11 mmol/L (1.05-1.35) 04/08/19 11:20 HCO3/H2CO3 Ratio 17:1 04/08/19 11:20 ABG pH 7.35 (7.35-7.45) 04/08/19 11:20 ABG pCO2 37.0 mmHg (35-45) 04/08/19 11:20 ABG pO2 81.0 mmHg (80-100) 04/08/19 11:20 ABG HCO3 19.9 mmol/L (20-24) L 04/08/19 11:20 ABG Total CO2 21.0 mmol/L (21-25) 04/08/19 11:20 ABG O2 Saturation 95.5 % (94-98) 04/08/19 11:20 ABG Base Excess -5.3 mmol/L 04/08/19 11:20 FiO2 3L 04/08/19 11:20 Sodium 139.7 mmol/L (137-145) 04/25/19 06:22 Potassium 3.7 mmol/L (3.6-5.0) 04/25/19 06:22 Chloride 104 mmol/L (98-107) 04/25/19 06:22 Carbon Dioxide 25 mmol/L (22-30) 04/25/19 06:22 Anion Gap 11 (5-19) 04/25/19 06:22 BUN 47 mg/dL (7-20) H 04/25/19 06:22 Creatinine 1.23 mg/dL (0.52-1.25) 04/25/19 06:22 Est GFR ( Amer) 52 (>60) L 04/25/19 06:22 Est GFR (MDRD) Non-Af 43 (>60) L 04/25/19 06:22 Glucose 122 mg/dL (75-110) H 04/25/19 06:22 POC Glucose 173 mg/dL (70-110) H 04/26/19 11:08 Calcium 8.6 mg/dL (8.4-10.2) 04/25/19 06:22 Magnesium 1.7 mg/dL (1.6-2.3) 04/25/19 06:22 Iron 36.6 ug/dL (37-170) L 03/28/19 06:17 TIBC 300 ug/dL (250-450) 03/28/19 06:17 % Saturation 12 % 03/28/19 06:17 Ferritin 54.40 ng/mL (11.1-264.0) 03/28/19 06:17 Total Bilirubin 2.8 mg/dL (0.2-1.3) H 04/22/19 06:25 Direct Bilirubin 1.6 mg/dL (0.0-0.4) H 04/22/19 06:25 Neonat Total Bilirubin Not Reportable 04/22/19 06:25 Neonat Direct Bilirubin Not Reportable 04/22/19 06:25 Neonat Indirect Bili Not Reportable 04/22/19 06:25 AST 21 U/L (14-36) 04/22/19 06:25 ALT 9 U/L (<35) 04/22/19 06:25 Alkaline Phosphatase 115 U/L (38-126) 04/22/19 06:25 Ammonia 35.4 umol/L (9-33) H 04/22/19 06:25 Lactate Dehydrogenase 149 U/L (120-246) 04/01/19 05:36 Total Protein 6.5 g/dL (6.3-8.2) 04/22/19 06:25 Albumin 3.0 g/dL (3.5-5.0) L 04/22/19 06:25 Vitamin B12 > 1000.0 pg/mL (239-931) H 03/28/19 06:17 Folate 14.30 ng/mL (>2.76) 03/28/19 06:17 Cortisol AM Sample 15.40 ug/dL (4.46-22.7) 04/09/19 04:49 Urine Color ISRAEL 04/07/19 21:35 Urine Appearance CLOUDY 04/07/19 21:35 Urine pH 5.0 (5.0-9.0) 04/07/19 21:35 Ur Specific [place] 1.010 04/07/19 21:35 Urine Protein NEGATIVE mg/dL (NEGATIVE) 04/07/19 21:35 Urine Glucose (UA) 50 mg/dL (NEGATIVE) H 04/07/19 21:35 Urine Ketones NEGATIVE mg/dL (NEGATIVE) 04/07/19 21:35 Urine Blood MODERATE (NEGATIVE) H 04/07/19 21:35 Urine Nitrite NEGATIVE (NEGATIVE) 04/07/19 21:35 Urine Bilirubin NEGATIVE (NEGATIVE) 04/07/19 21:35 Urine Urobilinogen 2.0 mg/dL (<2.0) H 04/07/19 21:35 Ur Leukocyte Esterase MODERATE (NEGATIVE) H 04/07/19 21:35 Urine WBC (Auto) 10 /HPF 04/07/19 21:35 Urine RBC (Auto) 11 /HPF 04/07/19 21:35 U Hyaline Cast (Auto) 4 /LPF 04/07/19 21:35 Urine Bacteria (Auto) 3+ /HPF 04/07/19 21:35 Squamous Epi Cells Auto 4 /HPF 04/07/19 21:35 Amorphous Sediment Auto TRACE /HPF 04/07/19 21:35 Urine Mucus (Auto) RARE /LPF 04/07/19 21:35 Urine Ascorbic Acid NEGATIVE (NEGATIVE) 04/07/19 21:35 Fluid Type PLEURAL 04/10/19 15:55 Fluid Source LUNG 04/10/19 15:55 Fluid Color DARK YELLOW 04/10/19 15:55 Fluid Appearance CLOUDY 04/10/19 15:55 Fluid Viscosity SLIGHTLY VISCOUS 04/10/19 15:55 Fluid WBC 266 /uL 04/10/19 15:55 Fluid RBC 9205 /uL 04/10/19 15:55 Fluid Seg Neutrophils 18 % 04/10/19 15:55 Fluid Lymphocytes 81 % 04/10/19 15:55 Fluid Monocytes 0 % 04/10/19 15:55 Fluid Eosinophils 1 % 04/10/19 15:55 Fluid Basophils 0 % 04/10/19 15:55 Fluid Glucose 116 mg/dL (.) 04/10/19 15:55 Fluid Total Protein 1.9 g/dL (.) 04/10/19 15:55 Fluid LDH 112 IU/L (.) 04/10/19 15:55 Blood Type AB POSITIVE 03/30/19 05:21 Antibody Screen NEGATIVE 03/30/19 05:21 Impressions: Chest X-Ray 03/30/19 00:00 IMPRESSION: BASILAR DENSITIES AND BILATERAL PLEURAL EFFUSIONS, UNCHANGED. Chest X-Ray 04/01/19 00:00 IMPRESSION: Decreased right-sided pleural effusion post thoracentesis. No pneumothorax. Residual mild bilateral effusions and bibasilar atelectasis, right greater the left. Thoracentesis Ultrasound 04/01/19 00:00 IMPRESSION: SUCCESSFUL THORACENTESIS USING ULTRASOUND GUIDANCE. Chest X-Ray 04/01/19 11:15 IMPRESSION: No pneumothorax. Chest X-Ray 04/02/19 06:00 IMPRESSION: No postprocedural pneumothorax. Chest X-Ray 04/07/19 00:00 IMPRESSION: Increased bilateral basilar airspace disease and pleural effusions. KUB X-Ray 04/07/19 00:28 IMPRESSION: The tip and side hole of the enteric tube project within the gastric lumen. Chest CT 04/08/19 00:00 IMPRESSION: CARDIOMEGALY. LARGE BILATERAL PLEURAL EFFUSIONS WITH COMPRESSIVE ATELECTASIS IN THE LUNG BASES. Head CT 04/08/19 00:00 IMPRESSION: NORMAL BRAIN CT WITHOUT CONTRAST. CHRONIC RIGHT MAXILLARY SINUS DISEASE. EVIDENCE OF ACUTE STROKE: NO. Abdomen Ultrasound 04/09/19 00:00 IMPRESSION: 1. Patent TIPS. Trace ascites. 2. Splenomegaly measuring 17 cm. 3. Moderate bilateral pleural effusions, right greater than left. 4. Decompressed stomach with thickened avendano, possibly secondary to decompressed state or gastritis. Abdomen Ultrasound 04/10/19 00:00 IMPRESSION: PATENT TIPS SHUNT. VELOCITIES ABOVE. Chest X-Ray 04/10/19 00:00 IMPRESSION: NO PNEUMOTHORAX FOLLOWING RIGHT THORACENTESIS. INTERVAL DECREASE IN THE RIGHT PLEURAL EFFUSION. Thoracentesis Ultrasound 04/10/19 00:00 IMPRESSION: SUCCESSFUL THORACENTESIS USING ULTRASOUND GUIDANCE. Chest X-Ray 04/10/19 18:00 IMPRESSION: No pneumothorax status post thoracentesis. Airspace disease in the lower lobes, atelectasis versus pneumonia. Bilateral pleural effusions. Chest X-Ray 04/14/19 00:00 IMPRESSION: Low inspiratory lung volumes with diffuse prominence of the interstitium and basilar predominant parenchymal and pleural opacities. Correlate with clinical findings for signs and symptoms of volume overload. Chest X-Ray 04/15/19 00:00 IMPRESSION: Trace stable right apical pneumothorax 4 hours post right thoracentesis Thoracentesis Ultrasound 04/15/19 00:00 IMPRESSION: SUCCESSFUL THORACENTESIS USING ULTRASOUND GUIDANCE. Chest X-Ray 04/15/19 09:15 IMPRESSION: Decreased right pleural effusion. No pneumothorax. Chest X-Ray 02/18/20 11:15 IMPRESSION: Trace right apical pneumothorax marked with arrows. Follow-up film in 2 hours will be obtained. Chest X-Ray 04/17/19 08:00 IMPRESSION: No pneumothorax. Plan Plan of Treatment: Severe pulmonary hypertension secondary to Portopulmonary hypertension from your cirrhosis. Continue spironolactone and Lasix continue sildenafil 20 mg 3 times daily. Avoid CCBs and BBs if not necessary. Have repeat echocardiogram done next month to reevaluate your pulmonary pressures. Follow-up with pulmonary hypertension specialist Dr. [facility] Pleural Effusions due to your Cirrhosis (Refractory hepatic hydrothorax) Frequent incentive spirometer after thoras for remnant compressive atelectasis You have had 3 thoracentesis for this and you may require repeated evaluation every 2 to 3 weeks by her primary care provider to see if you need repeated thoracentesis. The only thing that would likely fix this is liver transplantation but you are not a candidate for this. Use your oxygen as needed . On 3L NC. Please purchase a pulse oximeter to keep track of your oxygen level. Your goal oxygen level is >89% Signs suggestive of fluid reaccummulation include increased shortness of breath/difficulty breathing, decrease in your blood oxygen level as compared to your usual. Home health has been set up to help with this. Salt restricted diet Hepatic encephalopathy: Resolved. Continue lactulose as prescribed. Low Blood pressure: Continue midodrine three times a day. Monitor your BP at home. Chronic kidney disease: Creatinine now stable around 1.2-1.4 (which is a lot better than when you came in at 2.0). Avoid NSAIDS. Avoid dehydration. Follow up with your PCP for repeat basic metabolic panel blood work in 2 weeks. This will be done by the home health nurse. Diabetes Mellitus: Lantus 12 units in the morning and 10 units at night. Monitor your blood sugars every morning before breakfast and at night before dinner. F/u with your PCP. Anemia: Iron supplements Time Spent: Greater than 30 Minutes Stroke Is this a Stroke Patient?: No Acute Heart Failure - Is this a Heart Failure Patient?: Yes Documentation of LVEF assessment?: Yes LVEF < 40%?: No- if no continue to question #3 3. Anticoagulant therapy for permanect/persistent/paraoxysmal Afib or Aflutter: N/A Follow-up Appointment scheduled within 7 days?: Yes
[2019-04-26 14:17] VITALS: BP 109/44
== END 2019-04-26 15:22 | disposition home health service (06) | DRG 432 ==
LOC: 4N 21:07
PROVIDERS: ADMIT Internal Medicine; ATTEND Internal Medicine
PROC: 0W993ZZ Drainage of Right Pleural Cavity, Percutaneous Approach (ICD-10-PCS; principal; 2019-04-01)
PROC: B24BZZZ Ultrasonography of Heart with Aorta (ICD-10-PCS; 2019-04-01)
PROC: 0DH673Z Insertion of Infusion Device into Stomach, Via Natural or Artificial Opening (ICD-10-PCS; 2019-04-07)
PROC: 0W993ZZ Drainage of Right Pleural Cavity, Percutaneous Approach (ICD-10-PCS; 2019-04-10)
PROC: 0W993ZZ Drainage of Right Pleural Cavity, Percutaneous Approach (ICD-10-PCS; 2019-04-15)
DX: K74.3 Primary biliary cirrhosis (principal); J96.01 Acute respiratory failure with hypoxia; G93.41 Metabolic encephalopathy; N17.9 Acute kidney failure, unspecified; K76.6 Portal hypertension; J94.8 Other specified pleural conditions; J98.11 Atelectasis; N30.01 Acute cystitis with hematuria; J95.811 Postprocedural pneumothorax; I13.0 Hypertensive heart and chronic kidney disease with heart failure and stage 1 through stage 4 chronic kidney disease, or unspecified chronic kidney disease; I50.810 Right heart failure, unspecified; E87.5 Hyperkalemia; K72.10 Chronic hepatic failure without coma; N18.3 Chronic kidney disease, stage 3 (moderate); E11.22 Type 2 diabetes mellitus with diabetic chronic kidney disease; I50.9 Heart failure, unspecified; I95.89 Other hypotension; D63.8 Anemia in other chronic diseases classified elsewhere; E86.1 Hypovolemia; E11.649 Type 2 diabetes mellitus with hypoglycemia without coma; M54.5 Low back pain; R68.0 Hypothermia, not associated with low environmental temperature; E11.65 Type 2 diabetes mellitus with hyperglycemia; Z11.9 Encounter for screening for infectious and parasitic diseases, unspecified; Z79.4 Long term (current) use of insulin; I27.29 Other secondary pulmonary hypertension; B95.2 Enterococcus as the cause of diseases classified elsewhere; Z96.89 Presence of other specified functional implants; E86.0 Dehydration; Z99.81 Dependence on supplemental oxygen; Y83.8 Other surgical procedures as the cause of abnormal reaction of the patient, or of later complication, without mention of misadventure at the time of the procedure
CPT/HCPCS: 32555; 36415; 36600; 70450; 71045; 71046; 71250; 74018; 76700; 80048; 80053; 81001; 82040; 82140; 82533; 82607; 82728; 82746; 82803; 82945; 82962; 83540; 83550; 83615; 83735; 84157; 85025; 85027; 85045; 85610; 85730; 86850; 86900; 86901; 87040; 87070; 87075; 87086; 87088; 87186; 87205; 89050; 93005; 93010; 93306; 93308; 93971; 93976; 94660; 94799; A9270-GY; J0696; J1644; J1815; J1940; J2405; J3230; J3490; J7030; J7042; P9047

== ENCOUNTER → 2019-04-28 | Outpatient (CLI) | payer MEDICARE ==
--- NOTE | 2019-04-28 12:28 | RADIOLOGY REPORT (SQ) ---
EXAM DESCRIPTION: CT CHEST WITHOUT COMPLETED DATE/TIME: 04/28/2019 10:02 am REASON FOR STUDY: PULMONARY NODULE (R91.1) R91.1 SOLITARY PULMONARY NODULE COMPARISON: 04/08/2019 TECHNIQUE: CT scan performed of the chest without intravenous contrast. Images reviewed with lung, soft tissue and bone windows. Reconstructed coronal and sagittal MPR images reviewed. All images st ored on PACS. All CT scanners at this facility use dose modulation, iterative reconstruction, and/or weight based d osing when appropriate to reduce radiation dose to as low as reasonably achievable (ALARA). [facility]: Dose Right [facility]: CareDose [facility]: Dose Right [facility]: Teradose 4D [facility]: Smart [employer] RADIATION DOSE: CT Rad equipment meets quality standard of care and radiation dose reduction techniq ues were employed. CTDIvol: 2.9 mGy. DLP: 97 mGy-cm. mGy. LIMITATIONS: No technical limitations. FINDINGS: LUNGS AND PLEURA: Residual pleural effusions bilaterally with moderate improvement. There continue to be associated atelectatic changes in the right lower lobe more than the left. No pulmon justine infiltrate or mass. HILAR AND MEDIASTINAL STRUCTURES: No identified masses or abnormal nodes. No obvious aneurysm. HEART AND VASCULAR STRUCTURES: Heart size is borderline. No pericardial effusion. No aneurysm. Cor onary artery calcifications. UPPER ABDOMEN: Possible TIPS catheter low-density hepatic lesion adjacent to the catheter. THYROID AND OTHER SOFT TISSUES: No masses. No adenopathy. BONES: No significant finding. HARDWARE: None in the chest. OTHER: No other significant findings. IMPRESSION: Bilateral pleural effusions with moderate improvement since the earlier study. Associat ed atelectasis in the right lobe more than the left. Borderline heart size without pulmonary edema. TECHNICAL DOCUMENTATION: JOB ID: [id number] Quality ID # [id number]: Final reports with documentation of one or more dose reduction techniques (e.g., Au tomated exposure control, adjustment of the mA and/or kV according to patient size, use of iterative reconstruction technique) 2010 [employer]- All Rights Reserved Reading location - IP/workstation name: [email or web address]
== END ==
LOC: RAD 09:27
PROVIDERS: ATTEND Registered Nurse
DX: R91.1 Solitary pulmonary nodule (principal); J90 Pleural effusion, not elsewhere classified
CPT/HCPCS: 71250

== ENCOUNTER 2019-05-25 09:43 | Observation (INO) | payer MEDICARE ==
[2019-05-25] MEDS ORDERED: ONDANSETRON HCL INJ/PF 4 MG/2 ML SDV IV ONE (10:03)
[2019-05-25] MEDS ORDERED: NORMAL SALINE 250 ML IV ONE (10:15)
[2019-05-25] MEDS ORDERED: NORMAL SALINE 500 ML IV ONE (10:16)
[2019-05-25 10:25] LABS: VENOUS BLOOD BASE EXCESS 6.9 mmol/L; VENOUS BLOOD HCO3 31.4 mmol/L (20-32); VENOUS BLOOD PCO2 44.2 mmHg (35-63); VENOUS BLOOD PH 7.47 (7.30-7.42)
[2019-05-25 10:26] LABS: ABSOLUTE LYMPHOCYTES (AUTO) 0.5 10^3/uL (0.5-4.7); ABSOLUTE MONOCYTES (AUTO) 0.3 10^3/uL (0.1-1.4); ABSOLUTE NEUT (AUTO) 2.1 10^3/uL (1.7-8.2); BASOPHILS % (AUTO) 0.3 % (0-2); EOSINOPHILS % (AUTO) 1.6 % (0-6); HEMATOCRIT 29.5 % (36.0-47.0); HEMOGLOBIN 10.2 g/dL (12.0-15.5); LYMPHOCYTES % (AUTO) 18.6 % (13-45); MEAN CORPUSCULAR HEMOGLOBIN 32.9 pg (27.0-33.4); MEAN CORPUSCULAR HGB CONC 34.5 g/dL (32.0-36.0); MONOCYTES % (AUTO) 8.9 % (3-13); PLATELET COUNT 122 10^3/uL (150-450); RED BLOOD COUNT 3.08 10^6/uL (3.72-5.28); RED CELL DISTRIBUTION WIDTH 21.3 % (11.5-14.0); SEGMENTED NEUTROPHILS % (AUTO) 70.6 % (42-78); TOTAL CELLS COUNTED % (AUTO) 100 %; WHITE BLOOD COUNT 2.9 10^3/uL (4.0-10.5)
[2019-05-25 10:40] LABS: APPEARANCE,URINE SLIGHTLY-CLOUDY; BILIRUBIN,URINE NEGATIVE (NEGATIVE); COLOR,URINE AMBER; GLUCOSE, URINE NEGATIVE (NEGATIVE); KETONES,URINE NEGATIVE (NEGATIVE); LEUKOCYTE ESTERASE,URINE TRACE (NEGATIVE); NITRITE,URINE NEGATIVE (NEGATIVE); PROTEIN,URINE NEGATIVE (NEGATIVE); URINE SPECIFIC GRAVITY 1.013; UROBILINOGEN,URINE NEGATIVE mg/dL (<2.0)
[2019-05-25 10:44] LABS: INTERNATIONAL RATION (INR) 1.18; PROTHROMBIN TIME 15.1 SEC (11.4-15.4)
[2019-05-25 10:45] LABS: PARTIAL THROMBOPLASTIN TIME 35.8 SEC (23.5-35.8)
[2019-05-25 10:46] LABS: MEAN CORPUSCULAR VOLUME 96 fl (80-97)
[2019-05-25 10:48] LABS: ALBUMIN 3.4 g/dL (3.5-5.0); ALKALINE PHOSPHATASE 168 U/L (38-126); ANION GAP 8 (5-19); ASPARTATE AMINO TRANSFERASE 32 U/L (14-36); BILIRUBIN,DIRECT 1.3 mg/dL (0.0-0.4); BILIRUBIN,TOTAL 2.3 mg/dL (0.2-1.3); BLOOD UREA NITROGEN 36 mg/dL (7-20); CALCIUM 9.1 mg/dL (8.4-10.2); CARBON DIOXIDE 30 mmol/L (22-30); CHLORIDE 99 mmol/L (98-107); GLUCOSE 148 mg/dL (75-110); POTASSIUM 4.3 mmol/L (3.6-5.0); TOTAL PROTEIN 7.6 g/dL (6.3-8.2)
[2019-05-25 10:49] LABS: ALCOHOL < 10 mg/dL (NONE DETECTED)
[2019-05-25 10:52] LABS: A TYPE INFLUENZA AG NEGATIVE (NEGATIVE); B INFLUENZA AG NEGATIVE (NEGATIVE)
[2019-05-25 10:59] LABS: NT PRO BNP 6040 pg/mL (<125)
[2019-05-25 11:01] LABS: TROPONIN I < 0.012 ng/mL
--- NOTE | 2019-05-25 11:07 | RADIOLOGY REPORT (SQ) ---
EXAM DESCRIPTION: ACUTE ABDOMEN SERIES IMAGES COMPLETED DATE/TIME: 05/25/2019 10:54 am REASON FOR STUDY: nausea/vomiting COMPARISON: Chest radiographs from 04/17/2019. NUMBER OF VIEWS: Three views. TECHNIQUE: Frontal chest, supine abdomen and upright/decubitus abdomen radiographic images acquired. LIMITATIONS: Per technologist, limiting motion and cooperation issues. FINDINGS: CHEST: Bilateral small effusions with basilar volume loss, similar. FREE AIR: None. No abnormal gas collections. BOWEL GAS PATTERN: Nonspecific but nonobstructive pattern. No dilated small bowel loops. Moderate r ectal stool. CALCIFICATIONS: No suspicious calcifications. HARDWARE: No indwelling lines. TIPSS shunt in place. SOFT TISSUES: No gross mass or suggestion of organomegaly. BONES: No acute fracture. No worrisome bone lesions. OTHER: No other significant finding. IMPRESSION: NO RADIOGRAPHIC EVIDENCE FOR ACUTE ABDOMINAL DISEASE. TECHNICAL DOCUMENTATION: JOB ID: [id number] 2010 [employer]- All Rights Reserved Reading location - IP/workstation name: [email or web address]
[2019-05-25] MEDS ORDERED: LACTULOSE SYRUP 20 GM/30 ML UDCUP PR ONE (12:13)
[2019-05-25] MEDS ORDERED: LEVOFLOXACIN 750 MG/D5W RTU 150 ML IV ONE (13:07)
[2019-05-25] MEDS ORDERED: LEVOFLOXACIN 500 MG/D5W RTU 500 MG/100 ML RTUPB IV ONE (13:09)
--- NOTE | 2019-05-25 13:54 | EKG REPORT ---
SEVERITY:- BORDERLINE ECG - SINUS RHYTHM BORDERLINE PROLONGED QT INTERVAL : Confirmed by: Chele Simmons MD 25-May-2019 13:54:12
--- NOTE | 2019-05-25 13:57 | RADIOLOGY REPORT (SQ) ---
EXAM DESCRIPTION: CT HEAD WITHOUT IMAGES COMPLETED DATE/TIME: 05/25/2019 1:41 pm REASON FOR STUDY: altered mental status COMPARISON: 04/08/2019 TECHNIQUE: Axial images acquired through the brain without intravenous contrast. Images reviewed wi th bone, brain and subdural windows. Additional sagittal and coronal reconstructions were generated. Images stored on PACS. All CT scanners at this facility use dose modulation, iterative reconstruction, and/or weight based d osing when appropriate to reduce radiation dose to as low as reasonably achievable (ALARA). [facility]: Dose Right [facility]: CareDose [facility]: Dose Right [facility]: Teradose 4D [facility]: Smart [place] RADIATION DOSE: CT Rad equipment meets quality standard of care and radiation dose reduction techniq ues were employed. CTDIvol: 53.2 mGy. DLP: 1822 mGy-cm. mGy. LIMITATIONS: None. FINDINGS: VENTRICLES: Normal size and contour. CEREBRUM: No masses. No hemorrhage. No midline shift. No evidence for acute infarction. Normal gra y/white matter differentiation. No areas of low density in the white matter. CEREBELLUM: No masses. No hemorrhage. No alteration of density. No evidence for acute infarction. EXTRAAXIAL SPACES: No fluid collections. No masses. ORBITS AND GLOBE: No intra- or extraconal masses. Normal contour of globe without masses. CALVARIUM: No fracture. PARANASAL SINUSES: Chronic right maxillary sinus opacification. No significant fluid. SOFT TISSUES: No mass or hematoma. OTHER: No other significant finding. IMPRESSION: No acute or suspicious intracranial abnormality. Right maxillary sinus disease. EVIDENCE OF ACUTE STROKE: NO. COMMENT: Quality ID # [id number]: Final reports with documentation of one or more dose reduction techniques (e.g., Automated exposure control, adjustment of the mA and/or kV according to patient size, use of iterative reconstruction technique) TECHNICAL DOCUMENTATION: JOB ID: [id number] 2010 [employer]- All Rights Reserved Reading location - IP/workstation name: [email or web address] [email or web address]
--- NOTE | 2019-05-25 14:34 | ER Document Report ---
Entered by BETH LARRY SCRIBE 05/25/19 1008 Acting as scribe for:MARTIR HERNADNEZ MD ED General - General Chief Complaint: Altered Mental Status Stated Complaint: AMS Primary Care Provider: ELIZABETH CHEN FNP-C [Primary Care Provider] - Follow up as needed Information source: Patient, Emergency Med Personnel Cannot obtain history due to: Altered mental status Notes: This 69-year-old female with history of cirrhosis, diabetes, and hepatic encephalopathy presents to the emergency department with an altered mental status that began last night. Patient's family stated that patient started showing symptoms of her altered mental status last night with vomiting. Patient is resistant and non-talkative with no family presence during the time of exam, so a full HPI is unobtainable. TRAVEL OUTSIDE OF THE [place] IN LAST 30 DAYS: No - Related Data Allergies/Adverse Reactions: No Known Allergies Allergy (Verified 09/11/18 12:48) Past Medical History - General Information source: Patient Cannot obtain history due to: Altered mental status - Social History Smoking Status: Never Smoker Family History: COPD - Past Medical History Cardiac Medical History: Reports: Hx Congestive Heart Failure, Hx Hypertension Pulmonary Medical History: Reports: Hx COPD Endocrine Medical History: Reports: Hx Diabetes Mellitus Type 1, Hx Diabetes Mellitus Type 2, Hx Hypothyroidism GI Medical History: Reports: Hx Cirrhosis, Hx Gastroesophageal Reflux Disease Musculoskeletal Medical History: Reports Hx Arthritis Past Surgical History: Reports: Hx Abdominal Surgery - hernia repair, Hx Section - x2, Hx Cholecystectomy, Hx Herniorrhaphy, Hx Hysterectomy, Hx Orthopedic Surgery, Other - Tips procedure Review of Systems - Review of Systems -: Yes ROS unobtainable due to patient's medical condition Physical Exam - Vital signs Vitals: Resp Pulse Ox 20 94 05/25/19 09:47 05/25/19 09:47 - Notes Notes: Physical Exam: General: Alert, Frail. Patient is resistant to exam and moving her extremities, excessively. Patient was having a catheter placed on exam. HEENT: Normocephalic. Atraumatic. PERRL. Extraocular movements intact. Oropharynx clear. Mild icterus noted. Neck: Supple. Non-tender. Respiratory: No respiratory distress. Clear and equal breath sounds bilaterally. Cardiovascular: Regular rate and rhythm. Abdominal: Normal Inspection. Non-tender. No distension. Normal Bowel Sounds. Back: Grade 1, 4 cm X 3 cm skin decubitus ulcer on lower back. Extremities: Moves all four extremities. Upper extremities: Normal ROM. Multiple macular bruising. Lower extremities: Normal inspection. No edema. Normal ROM. Neurological: Normal cognition. AAOx4. Besides limited sounds, patient in non- talkative. Skin: Warm. Dry. Normal color. Course - Re-evaluation Re-evalutation: 05/25/19 14:22 Patient resting in bed. Arousable to stimulation. - Vital Signs Vital signs: Temp Pulse Resp BP Pulse Ox 17 107/48 L 99 05/25/19 11:31 05/25/19 11:31 05/25/19 11:31 - Laboratory Result Diagrams: 05/25/19 09:45 05/25/19 09:45 Laboratory results interpreted by me: 05/25/19 05/25/19 05/25/19 09:45 09:45 09:45 WBC RBC Hgb Hct RDW Plt Count VBG pH 7.47 H BUN Est GFR ( Amer) Est GFR (MDRD) Non-Af Glucose POC Glucose Total Bilirubin Direct Bilirubin Alkaline Phosphatase Ammonia 130.5 H NT-Pro-B Natriuret Pep 6040 H Albumin Ur Leukocyte Esterase Urine Ascorbic Acid 05/25/19 05/25/19 05/25/19 09:45 09:45 10:05 WBC 2.9 L RBC 3.08 L Hgb 10.2 L Hct 29.5 L RDW 21.3 H Plt Count 122 L VBG pH BUN 36 H Est GFR ( Amer) 56 L Est GFR (MDRD) Non-Af 46 L Glucose 148 H POC Glucose Total Bilirubin 2.3 H Direct Bilirubin 1.3 H Alkaline Phosphatase 168 H Ammonia NT-Pro-B Natriuret Pep Albumin 3.4 L Ur Leukocyte Esterase TRACE H Urine Ascorbic Acid 40 H 05/25/19 10:57 WBC RBC Hgb Hct RDW Plt Count VBG pH BUN Est GFR ( Amer) Est GFR (MDRD) Non-Af Glucose POC Glucose 166 H Total Bilirubin Direct Bilirubin Alkaline Phosphatase Ammonia NT-Pro-B Natriuret Pep Albumin Ur Leukocyte Esterase Urine Ascorbic Acid Elevated ammonia level consistent with hepatic encephalopathy. Also noted urinary tract infection with 3+ bacteria. White blood cell count low at 2.9. E levated liver function tests noted. BNP 6040 - Diagnostic Test Radiology results interpreted by me: 05/25/19 14:24 Twelve-lead EKG done 951 shows normal sinus rhythm rate of 81 with borderline prolonged QT interval. Critical Care Note - Critical Care Note Total time excluding time spent on procedures (mins): 39 - Altered mental status and neuro checks, hemodynamic monitoring, hypothermia management, urinary tract infection antibiotic management. Discharge - Discharge Clinical Impression: Acute metabolic encephalopathy, Urinary tract infection, Increased ammonia level, Cirrhosis, Bilateral pleural effusion Condition: Fair Disposition: ADMITTED INPATIENT Admitting Provider: Ajay (Hospitalist) Unit Admitted: Medical Floor - 5th floor Referrals: ELIZABETH CHEN FNP-C [Primary Care Provider] - Follow up as needed ED NIH Stroke Scale - NIH Stroke Scale *: 1. NIH scale should be completed with appropriate accompanying assessment tools. *: 2. The NIH should reflect what the patient is capable of doing and should not be coached by the clinician. 1a. Level of Consciousness: 0=Alert;keenly responsive -: 1=Drowsy -: 2=Obtunded -: 3=Coma/unresponsive or reflex to noxious stimuli. 1a. Responses: 2 1b. Orientation Questions: a. What month is it? -: b. How old are you? -: 0=Answers both questions correctly. -: 1=Answers one question correctly or patient is intubated or has orotracheal trauma. -: 2=Answers neither question correctly. 1b. Responses: 2 1c. Response to commands: a. Open and close eyes? -: b. Master In Chancery and release hand? -: Credit is given despite weakness. Demonstration of task is permitted. Substitute command if hands cannot be used. -: 0=Performs both tasks correctly -: 1=Performs one task correctly -: 2=Performs neither task correctly 1c. Responses: 2 2. Gaze: Establish eye contact and instruct patient to "Follow my finger" -: 0=Normal -: 1=Partial gaze palsy. Gaze is abnormal in one or both eyes, but where forced deviation or total gaze paresis is not present. -: 2=Forced deviation or total gaze paresis. 2. Responses: 2 3. Visual Zee: Sees fingers in all four quadrants. -: 0=No visual loss. -: 1=Partial hemianopsia. -: 2=Complete hemianopsia. -: 3=Bilateral hemianopsia (including Cortical blindness) 4. Facial Movement: Instruct patient to: -: a. Show me your teeth -: b. Raise your eyebrows -: c. Close your eyes -: d. Smile -: 0=Normal symmetrical movement -: 1=Minor paralysis (flattened nasolabial fold, asymmetry on smiling). -: 2=Partial paralysis (total or near total paralysis of lower face). -: 3=Complete paralysis of upper and lower face 5. Motor functions (left arm): Alternate sides and extend each arm with palms down (90 degrees if sitting or 45 degrees for supine). -: 0=No drift;limb holds for full 10 seconds. -: 1=Drift; limb holds but drifts down before full 10 seconds, but does not hit bed. -: 2=Some effort against gravity; limb cannot get to or maintain position. -: 3=No effort against gravity; limb falls. -: 4=No movement. -: UN=Amputation, joint fusion, explain in comments. 5. Motor Functions (right arm): Alternate sides and extend each arm with palms down (90 degrees if sitting or 45 degrees for supine). -: 0=No drift;limb holds for full 10 seconds. -: 1=Drift; limb holds but drifts down before full 10 seconds, but does not hit bed. -: 2=Some effort against gravity; limb cannot get to or maintain position. -: 3=No effort against gravity; limb falls. -: 4=No movement. -: UN=Amputation, joint fusion, explain in comments. 6. Motor Functions (left leg): With patient lying supine, alternate sides and extend each leg (30 degrees always while supine). -: 0=No drift, leg holds position for full 5 seconds -: 1=Drift; leg falls before full 5 seconds but does not hit bed. -: 2=Some effort against gravity, leg falls to bed but some effort against gravity. -: 3=No effort against gravity, leg falls to bed immediately. -: 4=No movement. -: UN=Amputation, joint fusion; explain in comments. 6. Motor Functions (right leg): With patient lying supine, alternate sides and extend each leg (30 degrees always while supine). -: 0=No drift, leg holds position for full 5 seconds -: 1=Drift; leg falls before full 5 seconds but does not hit bed. -: 2=Some effort against gravity, leg falls to bed but some effort against gravity. -: 3=No effort against gravity, leg falls to bed immediately. -: 4=No movement. -: UN=Amputation, joint fusion; explain in comments. 7. Limb Ataxia: With eyes open instruct patient to: -: a. "Touch your finger to your nose". -: b. "Touch your heel to your degroot" -: 0=Absent -: 1=Present in one limb. -: 2=Present in two limbs. -: UN=Amputation or joint fusion; explain in comments. 8. Sensory: Test sensation using pinprick or noxious stimuli. Test as many body parts as possible. -: 0=Normal;no sensory loss -: 1=Mile to moderate sensory loss (patient feels pin prick but is less sharp on affected side). -: 2=Severe or total sensory loss. 9. Best Language: Instruct patient to: -: a. "Describe what you see in this picture." -: b. "Name the items in this picture." -: c. "Read these sentences." -: 0=No aphasia, normal -: 1=Mild to moderate aphasia. -: 2=Severe aphasia -: 3=Mute, global aphasia, no usable speech or auditory comprehension. 10. Articulation, Dysarthia: Instruct patient to: -: "Read these words" or "Repeat these words" -: 0=Normal -: 1=Mild to moderate; patient may slur some words but can be understood without difficulty. -: 2=Severe; patients speech so slurred as to be unintelligible in the absence of dysphasia. -: UN=Intubated or other physical barrier, explain in comments. 11. Extinction or inattention: 0=No abnormality -: 1= Visual, tactile, auditory, spatial, or personal inattention or extinction to bilateral simulation in one or the sensory modalities. -: 2=Profound bernadette-inattention or bernadette-inattention to more than one modality; does not recognize own hand. Total Score: 8 Notes: Unable to complete NIH score as patient is obtunded and not able to answer or cooperate with the exam. Patient has hepatic encephalopathy at this time. I personally performed the services described in the documentation, reviewed and edited the documentation which was dictated to the scribe in my presence, and it accurately records my words and actions.
[2019-05-25] MEDS ORDERED: ONDANSETRON HCL INJ/PF 4 MG/2 ML SDV IV PRN (14:57)
[2019-05-25] MEDS ORDERED: NORMAL SALINE 1000 ML 1,000 ML IV PRN (15:02)
[2019-05-25] MEDS ORDERED: LACTULOSE SYRUP 20 GM/30 ML UDCUP PR PRN (15:11)
[2019-05-25] MEDS ORDERED: GLUCAGON,HUMAN RECOMB 1 MG INJ IM PRN (15:33)
[2019-05-25] MEDS ORDERED: DEXTROSE 50%-WATER 25 GM/50 ML DISP.SYRIN IV PRN ×2 (15:33)
[2019-05-25] MEDS ORDERED: DEXTROSE 40% GEL 15 GM TUBE PO PRN ×2 (15:33)
--- NOTE | 2019-05-25 15:33 | PDOC H&P ---
History of Present Illness Admission Date/PCP: RUTH SHELDON Patient complains of: Confusion History of Present Illness: MAURA CHRIS is a 69 year old female with a history of recurrent hepatic encephalopathy, primary biliary cirrhosis, refractory hepatic hydrothorax, severe pulmonary hypertension, who presents to the hospital via EMS for evaluation of altered mental status. H&P not obtainable from patient due to patient's mental status. However I did discuss with patient's who gave me the history. Patient had been doing well and had been compliant with her lactulose which she has been taking 20 g 3 times a day. Went to bed last night without any problems. This morning, patient's notes that patient became very lethargic and hard to arouse. Patient also was notably confused and disoriented. As a result he called the ambulance to take patient to the hospital. Patient's states that she has not left the house and several weeks and for the past 2-1/2 weeks her only contact has been himself. States that he even had home health stop coming in because of the coronavirus epidemic. He himself only goes out a few times a week to the grocery store and back. He denies any respiratory symptoms or fever from him and none with her as well. Past Medical History Cardiac Medical History: Reports: Congestive Heart Failure, Hypertension Pulmonary Medical History: Reports: Chronic Obstructive Pulmonary Disease (COPD) Endocrine Medical History: Reports: Diabetes Mellitus Type 1, Diabetes Mellitus Type 2, Hypothyroidism GI Medical History: Reports: Cirrhosis, Gastroesophageal Reflux Disease Musculoskeltal Medical History: Reports: Arthritis Psychiatric Medical History: Denies: Depression Hematology: Reports: Anemia Past Surgical History Past Surgical History: Reports: Section - x2, Cholecystectomy, Herniorrhaphy, Hysterectomy, Orthopedic Surgery, Other - Tips procedure Social History Smoking Status: Never Smoker Frequency of Alcohol Use: None Hx Recreational Drug Use: No Drugs: None Hx Prescription Drug Abuse: No - Advance Directive Resuscitation Status: Full Code Family History Family History: COPD Parental Family History Reviewed: Yes Children Family History Reviewed: Unknown Sibling(s) Family History Reviewed.: Unknown Medication/Allergy Home Medications: Pantoprazole Sodium [Protonix [address] Tablet] 40 mg PO QAM 03/14/19 Furosemide [Lasix 20 mg Tablet] 10 mg PO TID 30 Days tablet 04/26/19 Insulin Glargine,Hum.rec.anlog [Lantus Insulin 100 Unit/1 ml 10 ml] 10 unit SUBCUT QHS unit 04/26/19 Insulin Glargine,Hum.rec.anlog [Lantus Insulin 100 Unit/1 ml 10 ml] 12 unit SUBCUT DAILY #10 ml 04/26/19 Lactulose [Cephulac Syrup 20 gm/30 ml Udcup] 40 gm PO BID 30 Days udc 04/26/19 Levothyroxine Sodium 150 mcg PO Q6AM 30 Days 04/26/19 Midodrine HCl [Proamatine 5 mg Tablet] 10 mg PO TID 30 Days tablet 04/26/19 Potassium Chloride [Klor-Con M20] 20 mg PO DAILY 30 Days 04/26/19 Spironolactone [Aldactone 25 mg Tablet] 50 mg PO BID 30 Days tablet 04/26/19 Ursodiol [Actigall 300 mg Capsule] 300 mg PO Q12 30 Days 04/26/19 Cyanocobalamin (Vitamin B-12) [Vitamin B-12 1000 Mcg Tablet] 1,000 mcg PO DAILY 05/25/19 Ferrous Sulfate [Feosol 325 mg Tablet] 325 mg PO BID 05/25/19 Insulin Aspart [Novolog Flexpen] 0 unit SUBCUT .SLD SCALE 05/25/19 Magnesium Oxide [Magnesium] 250 mg PO DAILY 05/25/19 Multivitamin [Tab-A-Natalia (Multiple Vitamin) Tablet] 1 tab PO DAILY 05/25/19 Rifaximin [Xifaxan 550 mg Tablet] 05/25/19 Sildenafil Citrate [Revatio 20 mg Tablet] 10 mg PO MEALS 05/25/19 Allergies/Adverse Reactions: No Known Allergies Allergy (Verified 09/11/18 12:48) Review of Systems ROS unobtainable: Due to mental status Physical Exam Vital Signs: Temp Pulse Resp BP Pulse Ox 17 107/48 L 99 05/25/19 11:31 05/25/19 11:31 05/25/19 11:31 Intake & Output 05/24/19 05/25/19 05/26/19 06:59 06:59 06:59 Intake Total 250 Balance 250 Weight 52 kg General appearance: PRESENT: no acute distress, cooperative Head exam: ABSENT: atraumatic Eye exam: PRESENT: PERRLA, scleral icterus Neck exam: ABSENT: JVD Respiratory exam: PRESENT: crackles - right lung base Cardiovascular exam: PRESENT: RRR, +S1, +S2. ABSENT: tachycardia GI/Abdominal exam: PRESENT: soft. ABSENT: ascites, distended, rebound, rigid, tenderness Extremities exam: PRESENT: +1 edema Neurological exam: PRESENT: altered - Lethargic. Only responds saying 'yes' to every question.. ABSENT: oriented to person, oriented to place, oriented to time, oriented to situation Psychiatric exam: ABSENT: agitated Focused psych exam: ABSENT: internal stimuli Skin exam: PRESENT: jaundice Results Laboratory Results: 05/25/19 09:45 05/25/19 09:45 05/25/19 05/25/19 05/25/19 09:45 09:45 09:45 WBC RBC Hgb Hct MCV MCH MCHC RDW Plt Count Seg Neutrophils % VBG pH VBG pCO2 VBG HCO3 VBG Base Excess Sodium Potassium Chloride Carbon Dioxide Anion Gap BUN Creatinine Est GFR ( Amer) Glucose Lactic Acid 1.2 Calcium Total Bilirubin AST Alkaline Phosphatase Ammonia 130.5 H Total Protein Albumin Lipase 44.9 Urine Color Urine Appearance Urine pH Ur Specific [place] Urine Protein Urine Glucose (UA) Urine Ketones Urine Blood Urine Nitrite Ur Leukocyte Esterase Urine WBC (Auto) Urine RBC (Auto) 05/25/19 05/25/19 05/25/19 09:45 09:45 09:45 WBC 2.9 L RBC 3.08 L Hgb 10.2 L Hct 29.5 L MCV 96 D MCH 32.9 MCHC 34.5 RDW 21.3 H Plt Count 122 L Seg Neutrophils % 70.6 VBG pH 7.47 H VBG pCO2 44.2 VBG HCO3 31.4 VBG Base Excess 6.9 Sodium 137.0 Potassium 4.3 Chloride 99 Carbon Dioxide 30 Anion Gap 8 BUN 36 H Creatinine 1.16 Est GFR ( Amer) 56 L Glucose 148 H Lactic Acid Calcium 9.1 Total Bilirubin 2.3 H AST 32 Alkaline Phosphatase 168 H Ammonia Total Protein 7.6 Albumin 3.4 L Lipase Urine Color Urine Appearance Urine pH Ur Specific [place] Urine Protein Urine Glucose (UA) Urine Ketones Urine Blood Urine Nitrite Ur Leukocyte Esterase Urine WBC (Auto) Urine RBC (Auto) 05/25/19 10:05 WBC RBC Hgb Hct MCV MCH MCHC RDW Plt Count Seg Neutrophils % VBG pH VBG pCO2 VBG HCO3 VBG Base Excess Sodium Potassium Chloride Carbon Dioxide Anion Gap BUN Creatinine Est GFR ( Amer) Glucose Lactic Acid Calcium Total Bilirubin AST Alkaline Phosphatase Ammonia Total Protein Albumin Lipase Urine Color [place] Urine Appearance SLIGHTLY-CLOUDY Urine pH 5.0 Ur Specific [place] 1.013 Urine Protein NEGATIVE Urine Glucose (UA) NEGATIVE Urine Ketones NEGATIVE Urine Blood NEGATIVE Urine Nitrite NEGATIVE Ur Leukocyte Esterase TRACE H Urine WBC (Auto) 7 Urine RBC (Auto) 0 05/25/19 09:45 Troponin I < 0.012 NT-Pro-B Natriuret Pep 6040 H Impressions: Acute Abdomen Series 05/25/19 10:01 IMPRESSION: NO RADIOGRAPHIC EVIDENCE FOR ACUTE ABDOMINAL DISEASE. Head CT 05/25/19 12:42 IMPRESSION: No acute or suspicious intracranial abnormality. Right maxillary sinus disease. EVIDENCE OF ACUTE STROKE: NO. Assessment and Plan - Diagnosis (1) Hepatic encephalopathy Is this a current diagnosis for this admission?: Yes Plan: Patient here with recurrent hepatic encephalopathy. Received lactulose enema in the ER. Ammonia at 130. Placed on lactulose p.o. 40 g 3 times daily. Will give enema if patient is unable to take p.o. given her mental status. Titrate to 3-4 bowel movements a day. Rifamixin Vital signs every 4 hours IV normal saline Monitor ammonia (2) Hypothermia Qualifiers: Encounter type: initial encounter Qualified Code(s): T68.XXXA - Hypothermia, initial encounter Is this a current diagnosis for this admission?: Yes Plan: Mild hypothermia on admission. Nasopharyngeal swab obtained for COVID 19 testing in er. However, patient's notes that patient has not left the house since discharge and has not gotten any visitors for the past 2 weeks and denies that he nor her have experienced any respiratory symptoms besides a mild occasional cough which is chronic for patient since her last admission. Also, patient's hypothermia has occurred several times during her last hospitalization often requiring warming blanket and as such, is likely related to her cirrhosis. As such, I have CANCELED the COVID19 test as there are no acute changes/exposures to warrant testing. (3) Portopulmonary hypertension Is this a current diagnosis for this admission?: Yes Plan: History of severe pulmonary hypertension secondary to primary biliary cirrhosis with right heart failure. Stable at this time. Continue sildenafil and diuretics. (4) Diabetes mellitus Qualifiers: Diabetes mellitus type: other specified (including BALJEET) Is this a current diagnosis for this admission?: Yes Plan: Home regimen is Lantus 12 units in a.m. and 10 units nightly. Patient is currently n.p.o. given mental status, I will place her on a sliding scale coverage for now as she does have a history of volatile blood sugars. (5) Primary biliary cirrhosis Is this a current diagnosis for this admission?: Yes Plan: s/p TIPS few years ago. Has refractory hepatic hydrothorax but currently stable from a respiratory standpoint. Does not require any intervention at this time. Continue spironolactone and Lasix tomorrow. Monitor for dehydration. - Time Time Spent with patient: 25-34 minutes
[2019-05-25] MEDS: SILDENAFIL CITRATE 20 MG TABLET PO SCH (17:00)
[2019-05-25] MEDS ORDERED: LORAZEPAM INJ 2 MG/1 ML VIAL IV PRN (17:23)
[2019-05-25] MEDS: RIFAXIMIN 550 MG TABLET PO SCH (18:00)
[2019-05-25] MEDS: INSULIN LISPRO 100 UNIT/ML 3 ML VIAL SUBCUT SCH (18:21)
[2019-05-25] MEDS: MIDODRINE HCL 5 MG TABLET PO SCH (18:45)
[2019-05-25] MEDS: HEPARIN SOD (PORCINE) 5,000 UNIT/ML 1 ML VIAL SUBCUT SCH (21:14)
[2019-05-25] MEDS: LACTULOSE SYRUP 20 GM/30 ML UDCUP PO SCH (22:02)
[2019-05-26] MEDS: INSULIN LISPRO 100 UNIT/ML 3 ML VIAL SUBCUT SCH ×3 (00:40→11:48)
[2019-05-26 05:42] LABS: HEMATOCRIT 26.2 % (36.0-47.0); HEMOGLOBIN 8.9 g/dL (12.0-15.5); MEAN CORPUSCULAR VOLUME 97 fl (80-97); PLATELET COUNT 115 10^3/uL (150-450); RED BLOOD COUNT 2.69 10^6/uL (3.72-5.28); RED CELL DISTRIBUTION WIDTH 20.9 % (11.5-14.0); WHITE BLOOD COUNT 3.5 10^3/uL (4.0-10.5)
[2019-05-26] MEDS ORDERED: LEVOTHYROXINE SODIUM 0.15 MG TABLET PO SCH (06:00)
[2019-05-26 06:10] LABS: PHOSPHORUS 4.2 mg/dL (2.5-4.5)
[2019-05-26] MEDS: LACTULOSE SYRUP 20 GM/30 ML UDCUP PO SCH (06:24)
[2019-05-26] MEDS: HEPARIN SOD (PORCINE) 5,000 UNIT/ML 1 ML VIAL SUBCUT SCH (06:24)
[2019-05-26] MEDS: SILDENAFIL CITRATE 20 MG TABLET PO SCH ×2 (07:43→11:52)
[2019-05-26] MEDS ORDERED: PANTOPRAZOLE SODIUM 40 MG TABLET.DR PO SCH (08:00)
[2019-05-26] MEDS ORDERED: POTASSIUM CHLORIDE 10 MEQ TABLET.ER PO SCH (10:00)
[2019-05-26] MEDS ORDERED: MAGNESIUM OXIDE 400 MG TABLET PO SCH (10:00)
[2019-05-26] MEDS ORDERED: URSODIOL 300 MG CAPSULE PO SCH (10:00)
[2019-05-26] MEDS ORDERED: MULTIVITAMIN TABLET PO SCH (10:00)
[2019-05-26] MEDS ORDERED: FERROUS SULFATE 325 MG TABLET PO SCH (10:00)
[2019-05-26] MEDS ORDERED: CYANOCOBALAMIN (VITAMIN B-12) 1,000 MCG TABLET PO SCH (10:00)
[2019-05-26] MEDS ORDERED: FUROSEMIDE 20 MG TABLET PO SCH (10:00)
[2019-05-26] MEDS ORDERED: SPIRONOLACTONE 25 MG TABLET PO SCH (10:00)
[2019-05-26] MEDS: MIDODRINE HCL 5 MG TABLET PO SCH (11:04)
[2019-05-26] MEDS: RIFAXIMIN 550 MG TABLET PO SCH (11:04)
[2019-05-26 11:44] VITALS: BP 110/48
[2019-05-26] MEDS ORDERED: ONDANSETRON HCL INJ/PF 4 MG/2 ML SDV IV PRN (13:00)
--- NOTE | 2019-05-26 13:29 | PDOC DISCHARGE SUMMARY ---
Impression - Admit/DC Date/PCP Admission Date/Primary Care Provider: 05/25/19 15:41 RUTH SHELDON Discharge Date: 05/26/19 - Discharge Diagnosis (1) Hepatic encephalopathy Is this a current diagnosis for this admission?: Yes (2) Hypothermia Is this a current diagnosis for this admission?: Yes (3) Portopulmonary hypertension Is this a current diagnosis for this admission?: Yes (4) Diabetes mellitus Is this a current diagnosis for this admission?: Yes (5) Primary biliary cirrhosis Is this a current diagnosis for this admission?: Yes - Additional Information Resuscitation Status: Full Code Discharge Diet: As Tolerated Discharge Activity: Activity As Tolerated Referrals: ELIZABETH CHEN FNP-C [Primary Care Provider] - 06/10/19 1:00 pm Prescriptions: Rifaximin [Xifaxan 550 mg Tablet] 550 mg PO Q12 #60 Home Medications: Pantoprazole Sodium [Protonix [address] Tablet] 40 mg PO QAM 03/14/19 Furosemide [Lasix 20 mg Tablet] 10 mg PO TID 30 Days tablet 04/26/19 Insulin Glargine,Hum.rec.anlog [Lantus Insulin 100 Unit/1 ml 10 ml] 10 unit SUBCUT QHS unit 04/26/19 Insulin Glargine,Hum.rec.anlog [Lantus Insulin 100 Unit/1 ml 10 ml] 12 unit SUBCUT DAILY #10 ml 04/26/19 Levothyroxine Sodium 150 mcg PO Q6AM 30 Days 04/26/19 Midodrine HCl [Proamatine 5 mg Tablet] 10 mg PO TID 30 Days tablet 04/26/19 Potassium Chloride [Klor-Con M20] 20 mg PO DAILY 30 Days 04/26/19 Spironolactone [Aldactone 25 mg Tablet] 50 mg PO BID 30 Days tablet 04/26/19 Ursodiol [Actigall 300 mg Capsule] 300 mg PO Q12 30 Days 04/26/19 Cyanocobalamin (Vitamin B-12) [Vitamin B-12 1000 mcg Tablet] 1,000 mcg PO DAILY 05/25/19 Ferrous Sulfate [Feosol 325 mg Tablet] 325 mg PO BID 05/25/19 Insulin Aspart [Novolog Flexpen] 0 unit SUBCUT .SLD SCALE 05/25/19 Magnesium Oxide [Magnesium] 250 mg PO DAILY 05/25/19 Multivitamin [Tab-A-Natalia (Multiple Vitamin) Tablet] 1 tab PO DAILY 05/25/19 Sildenafil Citrate [Revatio 20 mg Tablet] 10 mg PO MEALS 05/25/19 Lactulose [Cephulac Syrup 20 gm/30 ml Udcup] 20 gm PO TID 30 Days udc 05/26/19 Rifaximin [Xifaxan 550 mg Tablet] 550 mg PO Q12 #60 05/26/19 History of Present Illiness History of Present Illness: MAURA CHRIS is a 69 year old female with a history of recurrent hepatic encephalopathy, primary biliary cirrhosis, refractory hepatic hydrothorax, severe pulmonary hypertension, who presents to the hospital via EMS for evaluation of altered mental status. H&P not obtainable from patient due to patient's mental status. However I did discuss with patient's who gave me the history. Patient had been doing well and had been compliant with her lactulose which she has been taking 20 g 3 times a day. Went to bed last night without any problems. This morning, patient's notes that patient became very lethargic and hard to arouse. Patient also was notably confused and disoriented. As a result he called the ambulance to take patient to the hospital. Patient's states that she has not left the house and several weeks and for the past 2-1/2 weeks her only contact has been himself. States that he even had home health stop coming in because of the coronavirus epidemic. He himself only goes out a few times a week to the grocery store and back. He denies any respiratory symptoms or fever from him and none with her as well. Hospital Course Hospital Course: Patient was admitted for acute encephalopathy. Encephalopathy was described with lethargy and confusion. In the ER patient was noted to have mild hypothermia with temperature of which is usual for patient. Patient showed no evidence of respiratory infection. Abdominal series was done which also included chest x-ray which showed no new infiltrates. Head CT was unremarkable. Patient was admitted for treatment of hepatic encephalopathy patient secondary to her primary biliary cirrhosis. Patient was given lactulose enema with significant improvement of ammonia level. Ammonia on presentation was 130. She was transitioned to oral lactulose and rifaximin. Today patient is completely alert and oriented and fully conversational and ammonia has trended back down to normal limits. Patient has returned to her baseline mental status and her acute encephalopathy has resolved. Patient requesting to be discharged home today. Have called patient's and informed him the patient will be discharged home today. He is in agreement with plan and has enough lactulose at home and request prescription of rifaximin called in to [facility]. Patient being discharged on lactulose and rifaximin. Physical Exam Vital Signs: Temp Pulse Resp BP Pulse Ox 98.1 F 90 20 110/48 L 92 05/26/19 12:07 05/26/19 12:07 05/26/19 12:07 05/26/19 12:07 05/26/19 12:07 Intake & Output 05/25/19 05/26/19 05/27/19 06:59 06:59 06:59 Intake Total 1300 240 Output Total 1900 Balance -600 240 Weight 53.6 kg General appearance: PRESENT: no acute distress, cooperative Respiratory exam: PRESENT: unlabored. ABSENT: accessory muscle use, retraction Neurological exam: PRESENT: alert, awake, oriented to person, oriented to place, oriented to time, oriented to situation, other - Alert and fully conversational. Answering appropriately to every question. Recollect past events told mildly forgetful. Psychiatric exam: ABSENT: agitated, anxious Results Laboratory Results: WBC 3.5 10^3/uL (4.0-10.5) L 05/26/19 05:25 RBC 2.69 10^6/uL (3.72-5.28) L 05/26/19 05:25 Hgb 8.9 g/dL (12.0-15.5) L 05/26/19 05:25 Hct 26.2 % (36.0-47.0) L 05/26/19 05:25 MCV 97 fl (80-97) 05/26/19 05:25 MCH 33.0 pg (27.0-33.4) 05/26/19 05:25 MCHC 34.0 g/dL (32.0-36.0) 05/26/19 05:25 RDW 20.9 % (11.5-14.0) H 05/26/19 05:25 Plt Count 115 10^3/uL (150-450) L 05/26/19 05:25 Lymph % (Auto) 18.6 % (13-45) 05/25/19 09:45 Patrick % (Auto) 8.9 % (3-13) 05/25/19 09:45 Eos % (Auto) 1.6 % (0-6) 05/25/19 09:45 Baso % (Auto) 0.3 % (0-2) 05/25/19 09:45 Absolute Neuts (auto) 2.1 10^3/uL (1.7-8.2) 05/25/19 09:45 Absolute Lymphs (auto) 0.5 10^3/uL (0.5-4.7) 05/25/19 09:45 Absolute Monos (auto) 0.3 10^3/uL (0.1-1.4) 05/25/19 09:45 Absolute Eos (auto) 0.0 10^3/uL (0.0-0.6) 05/25/19 09:45 Absolute Basos (auto) 0.0 10^3/uL (0.0-0.2) 05/25/19 09:45 Seg Neutrophils % 70.6 % (42-78) 05/25/19 09:45 PT 15.1 SEC (11.4-15.4) 05/25/19 09:45 INR 1.18 05/25/19 09:45 APTT 35.8 SEC (23.5-35.8) 05/25/19 09:45 VBG pH 7.47 (7.30-7.42) H 05/25/19 09:45 VBG pCO2 44.2 mmHg (35-63) 05/25/19 09:45 VBG HCO3 31.4 mmol/L (20-32) 05/25/19 09:45 VBG Base Excess 6.9 mmol/L 05/25/19 09:45 Sodium 137.0 mmol/L (137-145) 05/25/19 09:45 Potassium 4.3 mmol/L (3.6-5.0) 05/25/19 09:45 Chloride 99 mmol/L (98-107) 05/25/19 09:45 Carbon Dioxide 30 mmol/L (22-30) 05/25/19 09:45 Anion Gap 8 (5-19) 05/25/19 09:45 BUN 36 mg/dL (7-20) H 05/25/19 09:45 Creatinine 1.16 mg/dL (0.52-1.25) 05/25/19 09:45 Est GFR ( Amer) 56 (>60) L 05/25/19 09:45 Est GFR (MDRD) Non-Af 46 (>60) L 05/25/19 09:45 Glucose 148 mg/dL (75-110) H 05/25/19 09:45 POC Glucose 293 mg/dL (70-110) H 05/26/19 11:17 Lactic Acid 1.2 mmol/L (0.7-2.1) 05/25/19 09:45 Calcium 9.1 mg/dL (8.4-10.2) 05/25/19 09:45 Phosphorus 4.2 mg/dL (2.5-4.5) 05/26/19 05:25 Magnesium 2.0 mg/dL (1.6-2.3) 05/26/19 05:25 Total Bilirubin 2.3 mg/dL (0.2-1.3) H 05/25/19 09:45 Direct Bilirubin 1.3 mg/dL (0.0-0.4) H 05/25/19 09:45 Neonat Total Bilirubin Not Reportable 05/25/19 09:45 Neonat Direct Bilirubin Not Reportable 05/25/19 09:45 Neonat Indirect Bili Not Reportable 05/25/19 09:45 AST 32 U/L (14-36) 05/25/19 09:45 ALT 14 U/L (<35) 05/25/19 09:45 Alkaline Phosphatase 168 U/L (38-126) H 05/25/19 09:45 Ammonia 24.2 umol/L (9-33) 05/26/19 05:25 Troponin I < 0.012 ng/mL 05/25/19 09:45 NT-Pro-B Natriuret Pep 6040 pg/mL (<125) H 05/25/19 09:45 Total Protein 7.6 g/dL (6.3-8.2) 05/25/19 09:45 Albumin 3.4 g/dL (3.5-5.0) L 05/25/19 09:45 Lipase 44.9 U/L (23-300) 05/25/19 09:45 Urine Color ISRAEL 05/25/19 10:05 Urine Appearance SLIGHTLY-CLOUDY 05/25/19 10:05 Urine pH 5.0 (5.0-9.0) 05/25/19 10:05 Ur Specific [place] 1.013 05/25/19 10:05 Urine Protein NEGATIVE mg/dL (NEGATIVE) 05/25/19 10:05 Urine Glucose (UA) NEGATIVE mg/dL (NEGATIVE) 05/25/19 10:05 Urine Ketones NEGATIVE mg/dL (NEGATIVE) 05/25/19 10:05 Urine Blood NEGATIVE (NEGATIVE) 05/25/19 10:05 Urine Nitrite NEGATIVE (NEGATIVE) 05/25/19 10:05 Urine Bilirubin NEGATIVE (NEGATIVE) 05/25/19 10:05 Urine Urobilinogen NEGATIVE mg/dL (<2.0) 05/25/19 10:05 Ur Leukocyte Esterase TRACE (NEGATIVE) H 05/25/19 10:05 Urine WBC (Auto) 7 /HPF 05/25/19 10:05 Urine RBC (Auto) 0 /HPF 05/25/19 10:05 U Hyaline Cast (Auto) 6 /LPF 05/25/19 10:05 Urine Bacteria (Auto) 3+ /HPF 05/25/19 10:05 Urine Mucus (Auto) RARE /LPF 05/25/19 10:05 Urine Ascorbic Acid 40 (NEGATIVE) H 05/25/19 10:05 Serum Alcohol < 10 mg/dL (NONE DETECTED) 05/25/19 09:45 COVID-19 Source Cancelled 05/25/19 11:45 COVID-19 (JOE) Cancelled 05/25/19 11:45 Influenza A (Rapid) NEGATIVE (NEGATIVE) 05/25/19 09:45 Influenza B (Rapid) NEGATIVE (NEGATIVE) 05/25/19 09:45 Group A Strep Rapid NEGATIVE (NEGATIVE) 05/25/19 09:45 05/25/19 09:45 Troponin I < 0.012 NT-Pro-B Natriuret Pep 6040 H Impressions: Acute Abdomen Series 05/25/19 10:01 IMPRESSION: NO RADIOGRAPHIC EVIDENCE FOR ACUTE ABDOMINAL DISEASE. Head CT 05/25/19 12:42 IMPRESSION: No acute or suspicious intracranial abnormality. Right maxillary s inus disease. EVIDENCE OF ACUTE STROKE: NO. Plan Time Spent: Less than 30 Minutes Stroke Is this a Stroke Patient?: No Acute Heart Failure - Is this a Heart Failure Patient?: No
== END 2019-05-26 13:10 | disposition home or self-care (01) ==
LOC: ER 09:43 → EH 15:41 → 4S 16:34
PROVIDERS: ADMIT Internal Medicine; ATTEND Internal Medicine
DX: K72.90 Hepatic failure, unspecified without coma (principal); K74.3 Primary biliary cirrhosis; T68.XXXA Hypothermia, initial encounter; X58.XXXA Exposure to other specified factors, initial encounter; K76.6 Portal hypertension; I27.20 Pulmonary hypertension, unspecified; J94.8 Other specified pleural conditions; K21.9 Gastro-esophageal reflux disease without esophagitis; I11.0 Hypertensive heart disease with heart failure; I50.810 Right heart failure, unspecified; M19.90 Unspecified osteoarthritis, unspecified site; R94.31 Abnormal electrocardiogram [ECG] [EKG]; N39.0 Urinary tract infection, site not specified; E13.622 Other specified diabetes mellitus with other skin ulcer; L89.109 Pressure ulcer of unspecified part of back, unspecified stage; Z79.899 Other long term (current) drug therapy; Z79.4 Long term (current) use of insulin; Z95.828 Presence of other vascular implants and grafts
CPT/HCPCS: 93005; 36415 ×2; 87040; 87070; 87880; 82962 ×2; 80307; 82140 ×2; 83605; 83690; 83735; 84100; 85025; 85027; 85610; 85730; 80053; 81001; 84484; 82803; 87804; 83880; 74022; 70450; 93010; J1956; A9270 ×19; J3490; J2405; J7030; J7050; J7040; 96361; 96365; 96375; 99291; J1815

== ENCOUNTER 2019-05-31 10:14 | Inpatient (IN) | payer MEDICARE ==
[2019-05-31] MEDS ORDERED: NORMAL SALINE 250 ML IV ONE (10:42)
[2019-05-31] MEDS ORDERED: LACTULOSE SYRUP 20 GM/30 ML UDCUP PR ONE ×3 (10:51→13:51)
[2019-05-31 11:09] LABS: ABSOLUTE EOSINOPHILS # (AUTO) 0.1 10^3/uL (0.0-0.6); ABSOLUTE LYMPHOCYTES (AUTO) 0.6 10^3/uL (0.5-4.7); ABSOLUTE MONOCYTES (AUTO) 0.3 10^3/uL (0.1-1.4); ABSOLUTE NEUT (AUTO) 2.2 10^3/uL (1.7-8.2); BASOPHILS % (AUTO) 0.6 % (0-2); EOSINOPHILS % (AUTO) 2.4 % (0-6); HEMATOCRIT 29.3 % (36.0-47.0); HEMOGLOBIN 10.2 g/dL (12.0-15.5); LYMPHOCYTES % (AUTO) 20.1 % (13-45); MEAN CORPUSCULAR HEMOGLOBIN 33.4 pg (27.0-33.4); MEAN CORPUSCULAR HGB CONC 34.9 g/dL (32.0-36.0); MEAN CORPUSCULAR VOLUME 96 fl (80-97); MONOCYTES % (AUTO) 8.1 % (3-13); PLATELET COUNT 152 10^3/uL (150-450); RED BLOOD COUNT 3.06 10^6/uL (3.72-5.28); RED CELL DISTRIBUTION WIDTH 18.7 % (11.5-14.0); SEGMENTED NEUTROPHILS % (AUTO) 68.8 % (42-78); TOTAL CELLS COUNTED % (AUTO) 100 %; WHITE BLOOD COUNT 3.2 10^3/uL (4.0-10.5)
--- NOTE | 2019-05-31 11:09 | RADIOLOGY REPORT (SQ) ---
EXAM DESCRIPTION: CHEST SINGLE VIEW IMAGES COMPLETED DATE/TIME: 05/31/2019 10:58 am REASON FOR STUDY: ALTERED MENTAL STATUS COMPARISON: 04/17/2019 EXAM PARAMETERS: NUMBER OF VIEWS: One view. TECHNIQUE: Single frontal radiographic view of the chest acquired. RADIATION DOSE: NA LIMITATIONS: None. FINDINGS: LUNGS AND PLEURA: Increased bilateral pleural effusions and basilar opacities MEDIASTINUM AND HILAR STRUCTURES: No masses. Contour normal. HEART AND VASCULAR STRUCTURES: Heart enlarged. Vascular congestion. BONES: No acute findings. HARDWARE: None in the chest. OTHER: No other significant finding. IMPRESSION: Increase congestive heart failure and bilateral pleural effusions with basilar opacities . TECHNICAL DOCUMENTATION: JOB ID: [id number] 2010 [employer]- All Rights Reserved Reading location - IP/workstation name: [email or web address]
[2019-05-31 11:17] LABS: INTERNATIONAL RATION (INR) 1.15; PROTHROMBIN TIME 14.8 SEC (11.4-15.4)
[2019-05-31 11:18] LABS: PARTIAL THROMBOPLASTIN TIME 36.9 SEC (23.5-35.8)
[2019-05-31 11:24] LABS: ALBUMIN 3.2 g/dL (3.5-5.0); ALKALINE PHOSPHATASE 166 U/L (38-126); ANION GAP 7 (5-19); ASPARTATE AMINO TRANSFERASE 29 U/L (14-36); BILIRUBIN,DIRECT 1.2 mg/dL (0.0-0.4); BILIRUBIN,TOTAL 2.2 mg/dL (0.2-1.3); BLOOD UREA NITROGEN 33 mg/dL (7-20); CALCIUM 8.9 mg/dL (8.4-10.2); CARBON DIOXIDE 28 mmol/L (22-30); CHLORIDE 99 mmol/L (98-107); GLUCOSE 90 mg/dL (75-110); POTASSIUM 4.5 mmol/L (3.6-5.0); TOTAL PROTEIN 7.6 g/dL (6.3-8.2)
[2019-05-31 11:25] LABS: ACETAMINOPHEN < 10 ug/mL (10-30); ALCOHOL < 10 mg/dL (NONE DETECTED)
[2019-05-31 11:29] LABS: POLYCHROMASIA 1+
[2019-05-31 11:30] LABS: ANISOCYTOSIS 2+; PLATELET COMMENT ADEQUATE; PLATELET LARGE PRESENT
[2019-05-31 11:30] LABS: APPEARANCE,URINE SLIGHTLY-CLOUDY; BILIRUBIN,URINE NEGATIVE (NEGATIVE); COLOR,URINE YELLOW; GLUCOSE, URINE NEGATIVE (NEGATIVE); KETONES,URINE NEGATIVE (NEGATIVE); LEUKOCYTE ESTERASE,URINE NEGATIVE (NEGATIVE); NITRITE,URINE NEGATIVE (NEGATIVE); PROTEIN,URINE NEGATIVE (NEGATIVE); URINE SPECIFIC GRAVITY 1.009; UROBILINOGEN,URINE NEGATIVE mg/dL (<2.0)
--- NOTE | 2019-05-31 11:39 | RADIOLOGY REPORT (SQ) ---
EXAM DESCRIPTION: CT HEAD WITHOUT IMAGES COMPLETED DATE/TIME: 05/31/2019 11:13 am REASON FOR STUDY: ALTERED MENTAL STATUS COMPARISON: CT brain 05/25/2019, 04/08/2019, 07/14/2018 TECHNIQUE: Axial images acquired through the brain without intravenous contrast. Images reviewed wi th bone, brain and subdural windows. Additional sagittal and coronal reconstructions were generated. Images stored on PACS. All CT scanners at this facility use dose modulation, iterative reconstruction, and/or weight based d osing when appropriate to reduce radiation dose to as low as reasonably achievable (ALARA). [facility]: Dose Right [facility]: CareDose [facility]: Dose Right [facility]: Teradose 4D [facility]: Smart [employer] RADIATION DOSE: CT Rad equipment meets quality standard of care and radiation dose reduction techniq ues were employed. CTDIvol: 53.2 mGy. DLP: 964 mGy-cm. mGy. LIMITATIONS: None. FINDINGS: VENTRICLES: Normal size and contour. CEREBRUM: No masses. No hemorrhage. No midline shift. No evidence for acute infarction. Normal gra y/white matter differentiation. No areas of low density in the white matter. CEREBELLUM: No masses. No hemorrhage. No alteration of density. No evidence for acute infarction. EXTRAAXIAL SPACES: No fluid collections. No masses. ORBITS AND GLOBE: No intra- or extraconal masses. Normal contour of globe without masses. CALVARIUM: No fracture. PARANASAL SINUSES: No fluid or mucosal thickening. SOFT TISSUES: No mass or hematoma. OTHER: No other significant finding. IMPRESSION: NORMAL BRAIN CT WITHOUT CONTRAST. EVIDENCE OF ACUTE STROKE: NO. COMMENT: Quality ID # [id number]: Final reports with documentation of one or more dose reduction techniques (e.g., Automated exposure control, adjustment of the mA and/or kV according to patient size, use of iterative reconstruction technique) TECHNICAL DOCUMENTATION: JOB ID: [id number] 2010 [employer]- All Rights Reserved Reading location - IP/workstation name: [email or web address]
[2019-05-31 12:11] LABS: VENOUS BLOOD BASE EXCESS 2.7 mmol/L; VENOUS BLOOD HCO3 26.1 mmol/L (20-32); VENOUS BLOOD PCO2 35.9 mmHg (35-63); VENOUS BLOOD PH 7.48 (7.30-7.42)
--- NOTE | 2019-05-31 13:15 | RADIOLOGY REPORT (SQ) ---
EXAM DESCRIPTION: CT ABD/PELVIS WITH IV ONLY IMAGES COMPLETED DATE/TIME: 05/31/2019 11:48 am REASON FOR STUDY: rectal tube/subsequent blood per rectum. Altered mental status. COMPARISON: CT abdomen and pelvis 03/14/2019. Chest radiograph same date. TECHNIQUE: CT scan of the abdomen and pelvis performed using helical scanning technique with dynamic intravenous contrast injection. No oral contrast. Images reviewed with lung, soft tissue, and bone windows. Reconstructed coronal and sagittal MPR images reviewed. Delayed images for evaluation of the urinary system also acquired. All images stored on PACS. All CT scanners at this facility use dose modulation, iterative reconstruction, and/or weight based d osing when appropriate to reduce radiation dose to as low as reasonably achievable (ALARA). [facility]: Dose Right [facility]: CareDose [facility]: Dose Right [facility]: Teradose 4D [facility]: [employer] CONTRAST TYPE AND DOSE: contrast/concentration: Isovue 350.00 mg/ml; Total Contrast Delivered: 62.0 ml; Total Saline Delivered: 65.0 ml RENAL FUNCTION: Creatinine 1.15 today. RADIATION DOSE: CT Rad equipment meets quality standard of care and radiation dose reduction techniq ues were employed. CTDIvol: 6.1 - 8.3 mGy. DLP: 741 mGy-cm.. LIMITATIONS: None. FINDINGS: LOWER CHEST: There is a moderate right and small to moderate left pleural effusion with co mpressive atelectasis at the lung bases. Moderate to severe cardiomegaly is noted. Trace pericardia l effusion. Calcified coronary arteries. LIVER: The liver has a heterogeneous appearance with nodular contour, suggestive of underlying hepati c cirrhosis. A TIPS shunt is noted which appears patent. Intrahepatic biliary ductal dilation in th e left hepatic lobe is unchanged from previous examination. No abnormal biliary enhancement. Small cyst at the hepatic hilum unchanged. Hepatic and portal veins are patent. Portal vein is enlarged a t the hepatic hilum measuring 1.6 cm diameter. SPLEEN: Moderate splenomegaly with spleen measuring 15.8 cm craniocaudal at the midclavicular line, u nchanged from prior. No perisplenic fluid. PANCREAS: No masses. No significant calcifications. No adjacent inflammation or peripancreatic fluid collections. Pancreatic duct not dilated. GALLBLADDER: No identified stones by CT criteria. No inflammatory changes to suggest cholecystitis. ADRENAL GLANDS: No significant masses or asymmetry. RIGHT KIDNEY AND URETER: No solid masses. No significant calcifications. No hydronephrosis or hyd roureter. LEFT KIDNEY AND URETER: No solid masses. No significant calcifications. No hydronephrosis or hydr oureter. AORTA AND VESSELS: No aneurysm. No dissection. Renal arteries, SMA, celiac without stenosis. Enlarge d portal vein and splenic vein with large natasha splenic confluence, suggestive of underlying portal h ypertension. There appears to be a splenorenal shunt. RETROPERITONEUM: No retroperitoneal adenopathy, hemorrhage or masses. BOWEL AND PERITONEAL CAVITY: Large amount of stool throughout the colon and in the rectum. No bowel obstruction. No bowel wall thickening. No significant inflammatory change. APPENDIX: Not visualized. PELVIS: Post hysterectomy. No adnexal mass. Urinary bladder is unremarkable. ABDOMINAL WALL: No masses. No hernias. BONES: Severe chronic L1 compression fracture is unchanged from prior examination. No suspicious bon e lesions. OTHER: No other significant finding. IMPRESSION: 1. Moderate right and small to moderate left pleural effusions with compressive atelectasis at the anand ng bases. 2. Moderate to severe cardiomegaly. 3. TIPS procedure with hepatic cirrhosis, splenomegaly and portal hypertension. TIPS stent appears p atent. 4. Large amount of stool throughout the colon which can be seen with constipation. No bowel obstruct ion. 5. Chronic L1 compression fracture unchanged from prior examination. TECHNICAL DOCUMENTATION: JOB ID: [id number] Quality ID # [id number]: Final reports with documentation of one or more dose reduction techniques (e.g., Au tomated exposure control, adjustment of the mA and/or kV according to patient size, use of iterative reconstruction technique) 2010 [employer]- All Rights Reserved Reading location - IP/workstation name: [email or web address]
--- NOTE | 2019-05-31 13:50 | ER Document Report ---
Entered by BETH LARRY SCRIBE 05/31/19 [facility] Acting as scribe for:MARTIR HERNANDEZ MD ED General - General Chief Complaint: Altered Mental Status Stated Complaint: ALTERED MENTAL STATUS Primary Care Provider: ELIZABETH CHEN FNP-C [Primary Care Provider] - Follow up as needed Information source: Emergency Med Personnel Notes: This 69-year-old female presents to the emergency department via EMS with an altered mental status. EMS reports no fever and her blood sugar to be 92. Georgina sanchez was seen last week and was hospitalized for hepatic encephalopathy. Patient was presented with the same symptoms last week with an altered mental status and was discharged alert and oriented after a day. Patient at this time has an altered mental status so a full HPI is unobtainable at this time. TRAVEL OUTSIDE OF THE [place] IN LAST 30 DAYS: No - Related Data Allergies/Adverse Reactions: No Known Allergies Allergy (Verified 09/11/18 12:48) Past Medical History - General Information source: Patient - Social History Smoking Status: Never Smoker Cigarette use (# per day): No Chew tobacco use (# tins/day): No Family History: COPD - Past Medical History Cardiac Medical History: Reports: Hx Congestive Heart Failure, Hx Hypertension Pulmonary Medical History: Reports: Hx COPD Endocrine Medical History: Reports: Hx Diabetes Mellitus Type 1, Hx Hypothyr oidism GI Medical History: Reports: Hx Cirrhosis, Hx Gastroesophageal Reflux Disease Musculoskeletal Medical History: Reports Hx Arthritis Past Surgical History: Reports: Hx Abdominal Surgery - hernia repair, Hx Section - x2, Hx Cholecystectomy, Hx Herniorrhaphy, Hx Hysterectomy, Hx Orthopedic Surgery, Other - Tips procedure - Immunizations Hx Pneumococcal Vaccination: 11/26/18 Review of Systems - Review of Systems -: Yes ROS unobtainable due to patient's medical condition Physical Exam - Vital signs Vitals: Resp 25 H 05/31/19 10:18 - Notes Notes: Physical Exam: General: Alert, appears well. HEENT: Normocephalic. Atraumatic. PERRL. Extraocular movements intact. Oropharynx clear. Mild icterus noted. Neck: Supple. Non-tender. Respiratory: No respiratory distress. Clear and equal breath sounds bilaterally. Cardiovascular: Regular rate and rhythm. Abdominal: Normal Inspection. Non-tender. No distension. Normal Bowel Sounds. Back: No gross abnormalities. Extremities: Moves all four extremities. Upper extremities: Normal ROM. Multiple macular bruising. Lower extremities: Normal inspection. No edema. Normal ROM. Neurological: Normal cognition. AAOx4. Patient in non-talkative. Skin: Warm. Dry. Yellow in color. Grade 1, 4 cm X 3 cm skin decubitus ulcer. Course - Re-evaluation Re-evalutation: 05/31/19 13:44 Patient sleeping resting comfortably at this time. Patient is hypothermic requiring a Anjelica hugger warmer. Patient is hemodynamically stable. Saturations are 97% on 2 L. - Vital Signs Vital signs: Temp Pulse Resp BP Pulse Ox 94.1 F L 88 14 100/56 L 97 05/31/19 13:31 05/31/19 11:00 05/31/19 13:31 05/31/19 13:31 05/31/19 13:31 Hemodynamically stable at this time. - Laboratory Result Diagrams: 05/31/19 10:36 05/31/19 10:36 Laboratory results interpreted by me: 05/31/19 05/31/19 05/31/19 10:36 10:36 10:36 WBC 3.2 L RBC 3.06 L Hgb 10.2 L Hct 29.3 L RDW 18.7 H APTT 36.9 H VBG pH Sodium 134.2 L BUN 33 H Est GFR ( Amer) 56 L Est GFR (MDRD) Non-Af 47 L Total Bilirubin 2.2 H Direct Bilirubin 1.2 H Alkaline Phosphatase 166 H Ammonia Albumin 3.2 L Urine Ascorbic Acid Acetaminophen < 10 L 05/31/19 05/31/19 05/31/19 10:36 10:51 12:01 WBC RBC Hgb Hct RDW APTT VBG pH 7.48 H Sodium BUN Est GFR ( Amer) Est GFR (MDRD) Non-Af Total Bilirubin Direct Bilirubin Alkaline Phosphatase Ammonia 116.7 H Albumin Urine Ascorbic Acid 40 H Acetaminophen Laboratories show coagulopathy consistent with liver disease hemoglobin 10.2 elevated ammonia level 116 - Diagnostic Test Radiology reviewed: Image reviewed, Reports reviewed Radiology results interpreted by me: 05/31/19 13:46 CT scan of head does not show any acute stroke. Chest x-ray shows cardiomegaly and bilateral pleural effusions apparent worsening of congestive heart failure noted. CT abdomen and pelvis with IV contrast only shows no acute process. No perforation noted patient has splenomegaly cardiomegaly a TIPS procedure noted as well. - EKG Interpretation by Me Additional EKG results interpreted by me: 05/31/19 13:47 Twelve-lead EKG shows a sinus rhythm rate of 85 multiple areas of artifact noted as patient has some shaking during the EKG. No acute ST-T wave changes. Borderline prolonged QT interval. Discharge - Discharge Clinical Impression: Hepatic encephalopathy, Hypothermia, Congestive heart failure Condition: Fair Disposition: ADMITTED INPATIENT Admitting Provider: negin MOLINA Unit Admitted: Medical Floor Referrals: ELIZABETH CHEN FNP-C [Primary Care Provider] - Follow up as needed I personally performed the services described in the documentation, reviewed and edited the documentation which was dictated to the scribe in my presence, and it accurately records my words and actions.
[2019-05-31] MEDS ORDERED: LORAZEPAM INJ 2 MG/1 ML VIAL IV ONE (14:48)
[2019-05-31] MEDS ORDERED: OLANZAPINE INJ/PF 10 MG SDV IM PRN (15:33)
[2019-05-31 17:08] LABS: ANION GAP 8 (5-19); BLOOD UREA NITROGEN 33 mg/dL (7-20); CALCIUM 8.8 mg/dL (8.4-10.2); CARBON DIOXIDE 25 mmol/L (22-30); CHLORIDE 102 mmol/L (98-107); GLUCOSE 87 mg/dL (75-110); POTASSIUM 4.2 mmol/L (3.6-5.0)
--- NOTE | 2019-05-31 17:10 | PDOC H&P ---
History of Present Illness Admission Date/PCP: 05/31/19 14:07 RUTH SHELDON History of Present Illness: MAURA CHRIS is a 69 year old female with past medical history as below who came to the hospital after 2 to 3 days of progressive worsening confusion consistent with previous episodes of hepatic encephalopathy. Found to have markedly elevated ammonia on admission up to 116. Questionable medication compliance at home. Patient somnolent initially then became agitated then calm again. Potential hypothermia on admission was likely malfunctioning thermometer in the ER as temperature was completely normal after patient moved to the floor without any interventions for this specifically. Patient was given lactulose enema CT rectal tube, unfortunately in ED when this was done patient suffered a very small mild abrasion of the rectum which caused some specks of blood to appear in stool, tube was removed and was not replaced, no further bleeding was noted. Patient admitted for further treatment of hepatic encephalopathy. Past Medical History Cardiac Medical History: Reports: Congestive Heart Failure, Hypertension Pulmonary Medical History: Reports: Chronic Obstructive Pulmonary Disease (COPD) Endocrine Medical History: Reports: Diabetes Mellitus Type 1, Diabetes Mellitus Type 2, Hypothyroidism GI Medical History: Reports: Cirrhosis, Gastroesophageal Reflux Disease Musculoskeltal Medical History: Reports: Arthritis Psychiatric Medical History: Denies: Depression Hematology: Reports: Anemia Past Surgical History Past Surgical History: Reports: Section - x2, Cholecystectomy, Herniorrhaphy, Hysterectomy, Orthopedic Surgery, Other - Tips procedure Social History Information Source: Patient, Emergency Med Personnel Lives with: Family, Spouse/Significant other Smoking Status: Never Smoker Frequency of Alcohol Use: None Hx Recreational Drug Use: Yes Drugs: None Hx Prescription Drug Abuse: No - Advance Directive Resuscitation Status: Full Code Surrogate healthcare decision maker:: spouse Family History Family History: COPD Parental Family History Reviewed: Yes Children Family History Reviewed: Yes Sibling(s) Family History Reviewed.: Yes Medication/Allergy Home Medications: Pantoprazole Sodium [Protonix [address] Tablet] 40 mg PO QAM 03/14/19 Levothyroxine Sodium 150 mcg PO Q6AM 30 Days 04/26/19 Midodrine HCl [Proamatine 5 mg Tablet] 10 mg PO TID 30 Days tablet 04/26/19 Ursodiol [Actigall 300 mg Capsule] 300 mg PO Q12 30 Days 04/26/19 Cyanocobalamin (Vitamin B-12) [Vitamin B-12 1000 mcg Tablet] 1,000 mcg PO DAILY 05/25/19 Ferrous Sulfate [Feosol 325 mg Tablet] 325 mg PO BID 05/25/19 Insulin Aspart [Novolog Flexpen] 0 unit SUBCUT .SLD SCALE 05/25/19 Magnesium Oxide [Magnesium] 250 mg PO DAILY 05/25/19 Multivitamin [Tab-A-Natalia (Multiple Vitamin) Tablet] 1 tab PO DAILY 05/25/19 Sildenafil Citrate [Revatio 20 mg Tablet] 10 mg PO MEALS 05/25/19 Furosemide [Lasix 20 mg Tablet] 60 mg PO DAILY 05/31/19 Insulin Degludec [Tresiba Flextouch U-200] 6 unit SQ QHS 05/31/19 Insulin Degludec [Tresiba Flextouch U-200] 16 unit SQ QAM 05/31/19 Lactulose [Cephulac Syrup 20 gm/30 ml Udcup] 20 gm PO QID 05/31/19 Potassium Chloride [Klor-Con M20] 20 meq PO DAILY 05/31/19 Rifaximin [Xifaxan 550 mg Tablet] 550 mg PO TID 05/31/19 Spironolactone [Aldactone 25 mg Tablet] 25 mg PO DAILY 05/31/19 Allergies/Adverse Reactions: No Known Allergies Allergy (Verified 09/11/18 12:48) Review of Systems ROS unobtainable: Due to mental status Physical Exam Vital Signs: Temp Pulse Resp BP Pulse Ox 98.2 F 93 20 128/59 H 98 05/31/19 15:12 05/31/19 15:12 05/31/19 15:12 05/31/19 15:12 05/31/19 15:12 Intake & Output 05/30/19 05/31/19 06/01/19 06:59 06:59 06:59 Intake Total 150 Balance 150 Weight 54 kg General appearance: PRESENT: no acute distress, cooperative, disheveled, thin, well-developed, well-nourished Head exam: PRESENT: atraumatic, normocephalic Eye exam: PRESENT: conjunctiva pink Mouth exam: PRESENT: moist Respiratory exam: PRESENT: clear to auscultation josh. ABSENT: rales, rhonchi, wheezes Cardiovascular exam: PRESENT: RRR. ABSENT: diastolic murmur, rubs, systolic murmur GI/Abdominal exam: PRESENT: normal bowel sounds, soft. ABSENT: distended, guarding, mass, organolmegaly, rebound, tenderness Extremities exam: PRESENT: pedal edema, +2 edema Neurological exam: PRESENT: alert, awake, other - Limited neuro exam due to confusion. ABSENT: oriented to person, oriented to place, oriented to time, oriented to situation Psychiatric exam: PRESENT: appropriate affect, normal mood Skin exam: PRESENT: dry, intact, warm Results Laboratory Results: 05/31/19 10:36 05/31/19 10:36 05/31/19 05/31/19 05/31/19 10:36 10:36 10:36 WBC 3.2 L RBC 3.06 L Hgb 10.2 L Hct 29.3 L MCV 96 MCH 33.4 MCHC 34.9 RDW 18.7 H Plt Count 152 Seg Neutrophils % 68.8 VBG pH VBG pCO2 VBG HCO3 VBG Base Excess Sodium 134.2 L Potassium 4.5 Chloride 99 Carbon Dioxide 28 Anion Gap 7 BUN 33 H Creatinine 1.15 Est GFR ( Amer) 56 L Glucose 90 Lactic Acid 1.2 Calcium 8.9 Total Bilirubin 2.2 H AST 29 Alkaline Phosphatase 166 H Ammonia Total Protein 7.6 Albumin 3.2 L Lipase 43.7 Urine Color Urine Appearance Urine pH Ur Specific [place] Urine Protein Urine Glucose (UA) Urine Ketones Urine Blood Urine Nitrite Ur Leukocyte Esterase Urine WBC (Auto) Urine RBC (Auto) 05/31/19 05/31/19 05/31/19 10:36 10:51 12:01 WBC RBC Hgb Hct MCV MCH MCHC RDW Plt Count Seg Neutrophils % VBG pH 7.48 H VBG pCO2 35.9 VBG HCO3 26.1 VBG Base Excess 2.7 Sodium Potassium Chloride Carbon Dioxide Anion Gap BUN Creatinine Est GFR ( Amer) Glucose Lactic Acid Calcium Total Bilirubin AST Alkaline Phosphatase Ammonia 116.7 H Total Protein Albumin Lipase Urine Color YELLOW Urine Appearance SLIGHTLY-CLOUDY Urine pH 6.0 Ur Specific [place] 1.009 Urine Protein NEGATIVE Urine Glucose (UA) NEGATIVE Urine Ketones NEGATIVE Urine Blood NEGATIVE Urine Nitrite NEGATIVE Ur Leukocyte Esterase NEGATIVE Urine WBC (Auto) 4 Urine RBC (Auto) 0 05/31/19 10:36 Troponin I < 0.012 Impressions: Chest X-Ray 05/31/19 10:40 IMPRESSION: Increase congestive heart failure and bilateral pleural effusions with basilar opacities. Head CT 05/31/19 10:46 IMPRESSION: NORMAL BRAIN CT WITHOUT CONTRAST. EVIDENCE OF ACUTE STROKE: NO. Abdomen/Pelvis CT 05/31/19 12:10 IMPRESSION: 1. Moderate right and small to moderate left pleural effusions with compressive atelectasis at the lung bases. 2. Moderate to severe cardiomegaly. 3. TIPS procedure with hepatic cirrhosis, splenomegaly and portal hypertension. TIPS stent appears patent. 4. Large amount of stool throughout the colon which can be seen with constipation. No bowel obstruction. 5. Chronic L1 compression fracture unchanged from prior examination. Assessment and Plan - Diagnosis (1) Hepatic encephalopathy Is this a current diagnosis for this admission?: Yes Plan: Ammonia level significantly elevated 116 on admission, has been high many times in the past Suspect patient is not taking her medications at home as CT showed constipation on admission Lactulose enema given in ED but rectal tube slipped out and caused a very mild abrasion with a speck of blood, no further bleeding was noted and tube was not replaced Continue oral lactulose, give lactulose enema if unable to take oral; continue rifaximin Not oriented at all on admission (2) Hypothermia Is this a current diagnosis for this admission?: Yes Plan: Doubt this was true hypothermia as temperature jose miguel 3 degrees without any intervention between the ER in the medical floor; suspect erroneous temperature detection in the ER which seems to be a pattern with patient slightly; temperature back to normal on the floor Give warming blankets if temperature drops again (3) Metabolic encephalopathy Is this a current diagnosis for this admission?: Yes (4) Hyperammonemia Is this a current diagnosis for this admission?: Yes Plan: Due to cirrhosis Lactulose and rifaximin as above (5) Chronic liver failure Qualifiers: Hepatic coma status: without hepatic coma Qualified Code(s): K72.10 - Chronic hepatic failure without coma Is this a current diagnosis for this admission?: Yes Plan: Possibly gradually progressing over time Needs close follow-up with GI outpatient (6) Cirrhosis Qualifiers: Is this a current diagnosis for this admission?: Yes (7) Diabetes mellitus Qualifiers: Diabetes mellitus type: type 2 Diabetes mellitus intermediate insulin use: with terminal gauger supervisor use Diabetes mellitus complication status: with hyperglycemia Qualified Code(s): E11.65 - Type 2 diabetes mellitus with hyperglycemia; Z79.4 - shelter (current) use of insulin Is this a current diagnosis for this admission?: Yes Plan: Home insulin regimen restarted Low-dose correctional and Accu-Cheks (8) Portopulmonary hypertension Is this a current diagnosis for this admission?: Yes (9) 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 hypertension Is this a current diagnosis for this admission?: Yes Plan: Home medications continued, not in acute exacerbation - Time Time Spent with patient: 35 or more minutes Medications reviewed and adjusted accordingly: Yes Anticipated discharge: Home Within: within 72 hours - Inpatient Certification Based on my medical assessment, after consideration of the patient's comorbidities, presenting symptoms, or acuity I expect that the services needed warrant INPATIENT care.: Yes I certify that my determination is in accordance with my understanding of Medicare's requirements for reasonable and necessary INPATIENT services [42 CFR 412.3e].: Yes Medical Necessity: Significant Comorbidiites Make Outpatient Treatment Too Risky, Need Close Monitoring Due to Risk of Patient Decompensation
--- NOTE | 2019-05-31 17:11 | ADVANCED CARE ---
- Diagnosis (1) Hepatic encephalopathy Diagnosis Current: Yes (2) Hypothermia Diagnosis Current: Yes (3) Metabolic encephalopathy Diagnosis Current: Yes (4) Hyperammonemia Diagnosis Current: Yes (5) Chronic liver failure Diagnosis Current: Yes (6) Cirrhosis Diagnosis Current: Yes (7) Diabetes mellitus Diagnosis Current: Yes (8) Portopulmonary hypertension Diagnosis Current: Yes (9) 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 hypertension Diagnosis Current: Yes Attendance: Patient Resuscitation Status: Full Code Discussion: All aspects of CODE STATUS discussed with patient including cardioversion, chest compressions, intubation and she states that she wishes to be full code. She designates her as her M POA Time Spent: 17 min
[2019-05-31] MEDS: MIDODRINE HCL 5 MG TABLET PO SCH (17:40)
[2019-05-31] MEDS: SILDENAFIL CITRATE 20 MG TABLET PO SCH (17:40)
[2019-05-31] MEDS: FERROUS SULFATE 325 MG TABLET PO SCH (17:41)
[2019-05-31] MEDS: LACTULOSE SYRUP 20 GM/30 ML UDCUP PO SCH ×2 (17:41→22:04)
[2019-05-31] MEDS ORDERED: DEXTROSE 40% GEL 15 GM TUBE X 2 PO PRN (18:00)
[2019-05-31] MEDS ORDERED: DEXTROSE 50%-WATER SYRINGE 12.5 GM/25 ML DOSE IV PRN (18:00)
[2019-05-31] MEDS ORDERED: GLUCAGON,HUMAN RECOMB 1 MG INJ IM PRN (18:00)
[2019-05-31] MEDS ORDERED: DEXTROSE 50%-WATER SYRINGE 25 GM/50 ML DOSE IV PRN (18:00)
[2019-05-31] MEDS ORDERED: DEXTROSE 40% GEL 15 GM TUBE PO PRN (18:00)
[2019-05-31] MEDS ORDERED: INSULIN LISPRO 100 UNIT/ML 3 ML VIAL SUBCUT ONE (18:00)
[2019-05-31] MEDS ORDERED: INSULIN DEGLUDEC 6 UNIT SQ SCH (22:00)
[2019-05-31] MEDS: RIFAXIMIN 550 MG TABLET PO SCH (22:04)
[2019-05-31] MEDS: URSODIOL 300 MG CAPSULE PO SCH (22:04)
[2019-05-31] MEDS: INSULIN LISPRO 100 UNIT/ML 3 ML VIAL SUBCUT SCH (22:05)
[2019-05-31] MEDS: HEPARIN SOD (PORCINE) 5,000 UNIT/ML 1 ML VIAL SUBCUT SCH (22:05)
[2019-06-01] MEDS: LEVOTHYROXINE SODIUM 0.15 MG TABLET PO SCH ×2 (06:11→07:35)
[2019-06-01] MEDS: HEPARIN SOD (PORCINE) 5,000 UNIT/ML 1 ML VIAL SUBCUT SCH ×3 (06:11→21:23)
[2019-06-01] MEDS: RIFAXIMIN 550 MG TABLET PO SCH ×4 (06:11→21:23)
[2019-06-01 06:37] LABS: ABSOLUTE LYMPHOCYTES (AUTO) 0.5 10^3/uL (0.5-4.7); ABSOLUTE MONOCYTES (AUTO) 0.3 10^3/uL (0.1-1.4); ABSOLUTE NEUT (AUTO) 2.4 10^3/uL (1.7-8.2); BASOPHILS % (AUTO) 0.3 % (0-2); EOSINOPHILS % (AUTO) 1.4 % (0-6); HEMATOCRIT 27.9 % (36.0-47.0); HEMOGLOBIN 9.7 g/dL (12.0-15.5); LYMPHOCYTES % (AUTO) 14.2 % (13-45); MEAN CORPUSCULAR HEMOGLOBIN 33.7 pg (27.0-33.4); MEAN CORPUSCULAR HGB CONC 34.6 g/dL (32.0-36.0); MEAN CORPUSCULAR VOLUME 97 fl (80-97); MONOCYTES % (AUTO) 9.6 % (3-13); PLATELET COUNT 125 10^3/uL (150-450); RED BLOOD COUNT 2.86 10^6/uL (3.72-5.28); RED CELL DISTRIBUTION WIDTH 18.4 % (11.5-14.0); SEGMENTED NEUTROPHILS % (AUTO) 74.5 % (42-78); TOTAL CELLS COUNTED % (AUTO) 100 %; WHITE BLOOD COUNT 3.2 10^3/uL (4.0-10.5)
[2019-06-01 07:04] LABS: PHOSPHORUS 3.8 mg/dL (2.5-4.5)
[2019-06-01 07:15] LABS: ANISOCYTOSIS 1+; OVALOCYTES 1+; PLATELET COMMENT ADEQUATE; POIKILOCYTOSIS 1+; TEAR DROP CELLS 1+; TOXIC GRANULATION 1+
[2019-06-01] MEDS: INSULIN LISPRO 100 UNIT/ML 3 ML VIAL SUBCUT SCH ×4 (07:29→21:23)
[2019-06-01] MEDS ORDERED: INSULIN DEGLUDEC 16 UNIT SQ SCH (08:00)
[2019-06-01] MEDS ORDERED: LACTULOSE SYRUP 20 GM/30 ML UDCUP PR PRN (08:01)
[2019-06-01] MEDS: LACTULOSE SYRUP 20 GM/30 ML UDCUP PO SCH ×4 (09:23→21:23)
[2019-06-01] MEDS: FERROUS SULFATE 325 MG TABLET PO SCH ×2 (09:47→17:00)
[2019-06-01] MEDS: SPIRONOLACTONE 25 MG TABLET PO SCH (09:47)
[2019-06-01] MEDS: FUROSEMIDE 20 MG TABLET PO SCH (09:47)
[2019-06-01] MEDS: URSODIOL 300 MG CAPSULE PO SCH ×2 (09:47→21:23)
[2019-06-01] MEDS: POTASSIUM CHLORIDE 10 MEQ TABLET.ER PO SCH (09:47)
[2019-06-01] MEDS: SILDENAFIL CITRATE 20 MG TABLET PO SCH ×4 (09:47→16:04)
[2019-06-01] MEDS: PANTOPRAZOLE SODIUM 40 MG TABLET.DR PO SCH (09:47)
[2019-06-01] MEDS: MAGNESIUM OXIDE 400 MG TABLET PO SCH (09:47)
[2019-06-01] MEDS: MULTIVITAMIN TABLET PO SCH (09:48)
[2019-06-01] MEDS: MIDODRINE HCL 5 MG TABLET PO SCH ×3 (09:48→17:00)
[2019-06-01] MEDS: CYANOCOBALAMIN (VITAMIN B-12) 1,000 MCG TABLET PO SCH (09:48)
--- NOTE | 2019-06-01 10:46 | PDOC PROGRESS REPORT ---
Subjective Progress Note for:: 06/01/19 Subjective:: Patient continues to be rather somnolent today but does speak a bit more. She has been taking some but not all of her medications according to her nurse. We will continue trying to give her oral lactulose. Patient does not voice any complaints but cannot get full review of systems anyway due to somnolence. Reason For Visit: METABOLIC ENCEPHALOPATHY HEPATIC ENCEPHALOPATHY Physical Exam Vital Signs: Temp Pulse Resp BP Pulse Ox 98.7 F 95 18 161/53 H 100 06/01/19 08:00 06/01/19 08:00 06/01/19 08:00 06/01/19 08:00 06/01/19 08:00 Intake & Output 05/31/19 06/01/19 06/02/19 06:59 06:59 06:59 Intake Total 440 Output Total 1350 Balance -910 Weight 53 kg General appearance: PRESENT: no acute distress, well-developed, well-nourished Head exam: PRESENT: atraumatic, normocephalic Eye exam: PRESENT: conjunctiva pink Mouth exam: PRESENT: moist Respiratory exam: PRESENT: clear to auscultation josh. ABSENT: rales, rhonchi, wheezes Cardiovascular exam: PRESENT: RRR. ABSENT: diastolic murmur, rubs, systolic murmur GI/Abdominal exam: PRESENT: normal bowel sounds, soft. ABSENT: distended, guarding, mass, organolmegaly, rebound, tenderness Neurological exam: PRESENT: alert, altered, awake. ABSENT: oriented to person, oriented to place, oriented to time, oriented to situation Psychiatric exam: PRESENT: appropriate affect, normal mood Skin exam: PRESENT: dry, intact, warm Results Laboratory Results: 06/01/19 06:28 05/31/19 16:39 05/31/19 05/31/19 05/31/19 10:36 10:36 10:36 WBC 3.2 L RBC 3.06 L Hgb 10.2 L Hct 29.3 L MCV 96 MCH 33.4 MCHC 34.9 RDW 18.7 H Plt Count 152 Seg Neutrophils % 68.8 VBG pH VBG pCO2 VBG HCO3 VBG Base Excess Sodium 134.2 L Potassium 4.5 Chloride 99 Carbon Dioxide 28 Anion Gap 7 BUN 33 H Creatinine 1.15 Est GFR ( Amer) 56 L Glucose 90 Lactic Acid 1.2 Calcium 8.9 Phosphorus Magnesium Total Bilirubin 2.2 H AST 29 Alkaline Phosphatase 166 H Ammonia Total Protein 7.6 Albumin 3.2 L Lipase 43.7 TSH Urine Color Urine Appearance Urine pH Ur Specific [place] Urine Protein Urine Glucose (UA) Urine Ketones Urine Blood Urine Nitrite Ur Leukocyte Esterase Urine WBC (Auto) Urine RBC (Auto) 05/31/19 05/31/19 05/31/19 10:36 10:51 12:01 WBC RBC Hgb Hct MCV MCH MCHC RDW Plt Count Seg Neutrophils % VBG pH 7.48 H VBG pCO2 35.9 VBG HCO3 26.1 VBG Base Excess 2.7 Sodium Potassium Chloride Carbon Dioxide Anion Gap BUN Creatinine Est GFR ( Amer) Glucose Lactic Acid Calcium Phosphorus Magnesium Total Bilirubin AST Alkaline Phosphatase Ammonia 116.7 H Total Protein Albumin Lipase TSH Urine Color YELLOW Urine Appearance SLIGHTLY-CLOUDY Urine pH 6.0 Ur Specific [place] 1.009 Urine Protein NEGATIVE Urine Glucose (UA) NEGATIVE Urine Ketones NEGATIVE Urine Blood NEGATIVE Urine Nitrite NEGATIVE Ur Leukocyte Esterase NEGATIVE Urine WBC (Auto) 4 Urine RBC (Auto) 0 05/31/19 05/31/19 06/01/19 16:39 16:39 06:28 WBC 3.2 L RBC 2.86 L Hgb 9.7 L Hct 27.9 L MCV 97 MCH 33.7 H MCHC 34.6 RDW 18.4 H Plt Count 125 L Seg Neutrophils % 74.5 VBG pH VBG pCO2 VBG HCO3 VBG Base Excess Sodium 134.9 L Potassium 4.2 Chloride 102 Carbon Dioxide 25 Anion Gap 8 BUN 33 H Creatinine 1.04 Est GFR ( Amer) > 60 Glucose 87 Lactic Acid Calcium 8.8 Phosphorus Magnesium Total Bilirubin AST Alkaline Phosphatase Ammonia Total Protein Albumin Lipase TSH 0.61 Urine Color Urine Appearance Urine pH Ur Specific [place] Urine Protein Urine Glucose (UA) Urine Ketones Urine Blood Urine Nitrite Ur Leukocyte Esterase Urine WBC (Auto) Urine RBC (Auto) 06/01/19 06/01/19 06:28 06:28 WBC RBC Hgb Hct MCV MCH MCHC RDW Plt Count Seg Neutrophils % VBG pH VBG pCO2 VBG HCO3 VBG Base Excess Sodium Potassium Chloride Carbon Dioxide Anion Gap BUN Creatinine Est GFR ( Amer) Glucose Lactic Acid Calcium Phosphorus 3.8 Magnesium 2.1 Total Bilirubin AST Alkaline Phosphatase Ammonia 150.6 H Total Protein Albumin Lipase TSH Urine Color Urine Appearance Urine pH Ur Specific [place] Urine Protein Urine Glucose (UA) Urine Ketones Urine Blood Urine Nitrite Ur Leukocyte Esterase Urine WBC (Auto) Urine RBC (Auto) 05/31/19 10:36 Troponin I < 0.012 Impressions: Chest X-Ray 05/31/19 10:40 IMPRESSION: Increase congestive heart failure and bilateral pleural effusions with basilar opacities. Head CT 05/31/19 10:46 IMPRESSION: NORMAL BRAIN CT WITHOUT CONTRAST. EVIDENCE OF ACUTE STROKE: NO. Abdomen/Pelvis CT 05/31/19 12:10 IMPRESSION: 1. Moderate right and small to moderate left pleural effusions with compressive atelectasis at the lung bases. 2. Moderate to severe cardiomegaly. 3. TIPS procedure with hepatic cirrhosis, splenomegaly and portal hypertension. TIPS stent appears patent. 4. Large amount of stool throughout the colon which can be seen with constipation. No bowel obstruction. 5. Chronic L1 compression fracture unchanged from prior examination. Assessment and Plan - Diagnosis (1) Hepatic encephalopathy Is this a current diagnosis for this admission?: Yes Plan: Ammonia level significantly elevated 116 on admission, has been high many times in the past Suspect patient is not taking her medications at home as CT showed constipation on admission Lactulose enema given in ED but rectal tube slipped out and caused a very mild abrasion with a speck of blood, no further bleeding was noted and tube was not replaced Continue oral lactulose, give lactulose enema if unable to take oral; continue rifaximin Not oriented at all on admission; persistently confused, intermittently refusing lactulose (2) Hypothermia Is this a current diagnosis for this admission?: Yes Plan: Doubt this was true hypothermia as temperature jose miguel 3 degrees without any intervention between the ER in the medical floor; suspect erroneous temperature detection in the ER which seems to be a pattern with patient slightly; temperature back to normal on the floor Give warming blankets if temperature drops again Completely resolved and has not recurred (3) Metabolic encephalopathy Is this a current diagnosis for this admission?: Yes (4) Hyperammonemia Is this a current diagnosis for this admission?: Yes Plan: Due to cirrhosis Lactulose and rifaximin as above Intermittently will recheck ammonia to make sure it is trending down but the actual value does not specifically correlate with mentation in these patients (5) Chronic liver failure Qualifiers: Hepatic coma status: without hepatic coma Qualified Code(s): K72.10 - Chronic hepatic failure without coma Is this a current diagnosis for this admission?: Yes (6) Cirrhosis Qualifiers: Is this a current diagnosis for this admission?: Yes (7) Diabetes mellitus Qualifiers: Diabetes mellitus type: type 2 Diabetes mellitus keno terminal operator insulin use: with keno terminal operator use Diabetes mellitus complication status: with hyperglycemia Qualified Code(s): E11.65 - Type 2 diabetes mellitus with hyperglycemia; Z79.4 - termite helper (current) use of insulin Is this a current diagnosis for this admission?: Yes (8) Portopulmonary hypertension Is this a current diagnosis for this admission?: Yes (9) 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
--- NOTE | 2019-06-01 10:47 | EKG REPORT ---
SEVERITY:- ABNORMAL ECG - SINUS RHYTHM LOW VOLTAGE IN FRONTAL LEADS BORDERLINE PROLONGED QT INTERVAL : Confirmed by: Kurt Dubois 01-Jun-2019 10:46:28
[2019-06-02] MEDS: HEPARIN SOD (PORCINE) 5,000 UNIT/ML 1 ML VIAL SUBCUT SCH ×3 (05:48→21:00)
[2019-06-02] MEDS: RIFAXIMIN 550 MG TABLET PO SCH ×3 (05:50→21:09)
[2019-06-02] MEDS: LEVOTHYROXINE SODIUM 0.15 MG TABLET PO SCH (05:50)
[2019-06-02 05:52] LABS: ABSOLUTE EOSINOPHILS # (AUTO) 0.1 10^3/uL (0.0-0.6); ABSOLUTE LYMPHOCYTES (AUTO) 0.5 10^3/uL (0.5-4.7); ABSOLUTE MONOCYTES (AUTO) 0.3 10^3/uL (0.1-1.4); ABSOLUTE NEUT (AUTO) 2.1 10^3/uL (1.7-8.2); EOSINOPHILS % (AUTO) 3.7 % (0-6); HEMATOCRIT 27.2 % (36.0-47.0); HEMOGLOBIN 9.4 g/dL (12.0-15.5); LYMPHOCYTES % (AUTO) 16.8 % (13-45); MEAN CORPUSCULAR HEMOGLOBIN 33.6 pg (27.0-33.4); MEAN CORPUSCULAR HGB CONC 34.5 g/dL (32.0-36.0); MEAN CORPUSCULAR VOLUME 97 fl (80-97); MONOCYTES % (AUTO) 11.1 % (3-13); PLATELET COUNT 117 10^3/uL (150-450); RED BLOOD COUNT 2.79 10^6/uL (3.72-5.28); RED CELL DISTRIBUTION WIDTH 18.6 % (11.5-14.0); SEGMENTED NEUTROPHILS % (AUTO) 67.4 % (42-78); TOTAL CELLS COUNTED % (AUTO) 100 %; WHITE BLOOD COUNT 3.1 10^3/uL (4.0-10.5)
[2019-06-02 06:33] LABS: ANISOCYTOSIS 1+; OVALOCYTES SLIGHT; PLATELET COMMENT DECREASED
[2019-06-02] MEDS: INSULIN LISPRO 100 UNIT/ML 3 ML VIAL SUBCUT SCH ×4 (08:08→21:09)
[2019-06-02] MEDS: SILDENAFIL CITRATE 20 MG TABLET PO SCH ×3 (08:09→16:24)
[2019-06-02] MEDS: PANTOPRAZOLE SODIUM 40 MG TABLET.DR PO SCH (08:10)
[2019-06-02] MEDS: POTASSIUM CHLORIDE 10 MEQ TABLET.ER PO SCH (10:32)
[2019-06-02] MEDS: URSODIOL 300 MG CAPSULE PO SCH ×2 (10:32→21:09)
[2019-06-02] MEDS: FERROUS SULFATE 325 MG TABLET PO SCH ×2 (10:32→18:00)
[2019-06-02] MEDS: MULTIVITAMIN TABLET PO SCH (10:32)
[2019-06-02] MEDS: CYANOCOBALAMIN (VITAMIN B-12) 1,000 MCG TABLET PO SCH (10:32)
[2019-06-02] MEDS: MAGNESIUM OXIDE 400 MG TABLET PO SCH (10:34)
[2019-06-02] MEDS: MIDODRINE HCL 5 MG TABLET PO SCH ×3 (10:35→18:00)
[2019-06-02] MEDS: LACTULOSE SYRUP 20 GM/30 ML UDCUP PO SCH ×4 (10:35→21:09)
[2019-06-02] MEDS: FUROSEMIDE 20 MG TABLET PO SCH (12:00)
[2019-06-02] MEDS ORDERED: FUROSEMIDE 20 MG TABLET PO ONE (12:15)
[2019-06-02] MEDS: SPIRONOLACTONE 25 MG TABLET PO SCH ×2 (12:15→13:42)
--- NOTE | 2019-06-02 13:34 | PDOC PROGRESS REPORT ---
Subjective Progress Note for:: 06/02/19 Subjective:: Market improvement in mentation today. Patient is speaking in full sentences and is fully oriented, fully awake. She is now taking all her medications without significant prompting. Other than moderate fatigue she does not have any new complaints. Reason For Visit: METABOLIC ENCEPHALOPATHY HEPATIC ENCEPHALOPATHY Physical Exam Vital Signs: Temp Pulse Resp BP Pulse Ox 97.7 F 91 17 118/62 92 06/02/19 07:35 06/02/19 07:35 06/02/19 07:35 06/02/19 11:32 06/02/19 07:35 Intake & Output 06/01/19 06/02/19 06/03/19 06:59 06:59 06:59 Intake Total 440 640 Output Total 1350 1390 Balance -910 -750 Weight 53 kg 54.1 kg General appearance: PRESENT: no acute distress, well-developed, well-nourished Head exam: PRESENT: atraumatic, normocephalic Eye exam: PRESENT: conjunctiva pink Mouth exam: PRESENT: moist Respiratory exam: PRESENT: clear to auscultation josh. ABSENT: rales, rhonchi, wheezes Cardiovascular exam: PRESENT: RRR. ABSENT: diastolic murmur, rubs, systolic murmur GI/Abdominal exam: PRESENT: normal bowel sounds, soft. ABSENT: distended, gua rding, mass, organolmegaly, rebound, tenderness Rectal exam: PRESENT: deferred Neurological exam: PRESENT: alert, awake, oriented to person, oriented to place, oriented to time, oriented to situation Psychiatric exam: PRESENT: appropriate affect, normal mood Skin exam: PRESENT: dry, intact, warm Results Laboratory Results: 06/02/19 05:35 05/31/19 16:39 06/02/19 06/02/19 05:35 05:35 WBC 3.1 L RBC 2.79 L Hgb 9.4 L Hct 27.2 L MCV 97 MCH 33.6 H MCHC 34.5 RDW 18.6 H Plt Count 117 L Seg Neutrophils % 67.4 Ammonia 20.7 05/31/19 10:36 Troponin I < 0.012 Impressions: Chest X-Ray 05/31/19 10:40 IMPRESSION: Increase congestive heart failure and bilateral pleural effusions with basilar opacities. Head CT 05/31/19 10:46 IMPRESSION: NORMAL BRAIN CT WITHOUT CONTRAST. EVIDENCE OF ACUTE STROKE: NO. Abdomen/Pelvis CT 05/31/19 12:10 IMPRESSION: 1. Moderate right and small to moderate left pleural effusions with compressive atelectasis at the lung bases. 2. Moderate to severe cardiomegaly. 3. TIPS procedure with hepatic cirrhosis, splenomegaly and portal hypertension. TIPS stent appears patent. 4. Large amount of stool throughout the colon which can be seen with constipation. No bowel obstruction. 5. Chronic L1 compression fracture unchanged from prior examination. Assessment and Plan - Diagnosis (1) Hepatic encephalopathy Is this a current diagnosis for this admission?: Yes Plan: Ammonia level significantly elevated 116 on admission, has been high many times in the past whenever she does not have an appropriate number of bowel movements per day Suspect patient is not taking enough of her laxative medications at home as CT showed constipation on admission; dose and frequency need to be more dependent upon bowel movement frequency rather than a strict regimen that does not change Lactulose enema given in ED but rectal tube slipped out and caused a very mild abrasion with a speck of blood, no further bleeding was noted and tube was not replaced Continue oral lactulose, give lactulose enema if unable to take oral; continue rifaximin Not oriented at all on admission; persistently confused, intermittently refusing lactulose, when patient did eventually start taking lactulose her mentation improved substantially as her bowel movements resumed (2) Hypothermia Is this a current diagnosis for this admission?: Yes Plan: Doubt this was true hypothermia as temperature jose miguel 3 degrees without any intervention between the ER in the medical floor; suspect erroneous temperature detection in the ER which seems to be a pattern with patient slightly; temperature back to normal on the floor Give warming blankets if temperature drops again Completely resolved and has not recurred (3) Metabolic encephalopathy Is this a current diagnosis for this admission?: Yes (4) Hyperammonemia Is this a current diagnosis for this admission?: Yes Plan: Due to cirrhosis Lactulose and rifaximin as above; titrate lactulose and potentially add Dulcolax oral and/or rectal if needed to achieve 2-3 soft bowel movements per day Intermittently will recheck ammonia to make sure it is trending down but the actual value does not specifically correlate with mentation in these patients (5) Chronic liver failure Qualifiers: Hepatic coma status: without hepatic coma Qualified Code(s): K72.10 - Chronic hepatic failure without coma Is this a current diagnosis for this admission?: Yes (6) Cirrhosis Qualifiers: Is this a current diagnosis for this admission?: Yes (7) Diabetes mellitus Qualifiers: Diabetes mellitus type: type 2 Diabetes mellitus oysterman insulin use: with snf use Diabetes mellitus complication status: with hyperglycemia Qualified Code(s): E11.65 - Type 2 diabetes mellitus with hyperglycemia; Z79.4 - intermediate (current) use of insulin Is this a current diagnosis for this admission?: Yes (8) Portopulmonary hypertension Is this a current diagnosis for this admission?: Yes (9) 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
[2019-06-03 04:53] LABS: ABSOLUTE EOSINOPHILS # (AUTO) 0.2 10^3/uL (0.0-0.6); ABSOLUTE LYMPHOCYTES (AUTO) 0.9 10^3/uL (0.5-4.7); ABSOLUTE MONOCYTES (AUTO) 0.4 10^3/uL (0.1-1.4); ABSOLUTE NEUT (AUTO) 2.7 10^3/uL (1.7-8.2); BASOPHILS % (AUTO) 0.6 % (0-2); EOSINOPHILS % (AUTO) 5.4 % (0-6); HEMATOCRIT 27.6 % (36.0-47.0); HEMOGLOBIN 9.6 g/dL (12.0-15.5); LYMPHOCYTES % (AUTO) 21.3 % (13-45); MEAN CORPUSCULAR HEMOGLOBIN 33.8 pg (27.0-33.4); MEAN CORPUSCULAR HGB CONC 34.7 g/dL (32.0-36.0); MEAN CORPUSCULAR VOLUME 98 fl (80-97); MONOCYTES % (AUTO) 10.2 % (3-13); PLATELET COUNT 139 10^3/uL (150-450); RED BLOOD COUNT 2.83 10^6/uL (3.72-5.28); RED CELL DISTRIBUTION WIDTH 18.4 % (11.5-14.0); SEGMENTED NEUTROPHILS % (AUTO) 62.5 % (42-78); TOTAL CELLS COUNTED % (AUTO) 100 %; WHITE BLOOD COUNT 4.3 10^3/uL (4.0-10.5)
[2019-06-03] MEDS: HEPARIN SOD (PORCINE) 5,000 UNIT/ML 1 ML VIAL SUBCUT SCH ×2 (05:46→13:39)
[2019-06-03] MEDS: LEVOTHYROXINE SODIUM 0.15 MG TABLET PO SCH (06:20)
[2019-06-03] MEDS: RIFAXIMIN 550 MG TABLET PO SCH ×2 (06:20→14:27)
[2019-06-03] MEDS: INSULIN LISPRO 100 UNIT/ML 3 ML VIAL SUBCUT SCH ×2 (07:39→12:13)
[2019-06-03] MEDS: SILDENAFIL CITRATE 20 MG TABLET PO SCH ×2 (07:40→12:13)
[2019-06-03] MEDS: PANTOPRAZOLE SODIUM 40 MG TABLET.DR PO SCH (07:40)
[2019-06-03] MEDS: SPIRONOLACTONE 25 MG TABLET PO SCH (10:25)
[2019-06-03] MEDS: POTASSIUM CHLORIDE 10 MEQ TABLET.ER PO SCH (10:25)
[2019-06-03] MEDS: CYANOCOBALAMIN (VITAMIN B-12) 1,000 MCG TABLET PO SCH (10:25)
[2019-06-03] MEDS: MULTIVITAMIN TABLET PO SCH (10:25)
[2019-06-03] MEDS: MIDODRINE HCL 5 MG TABLET PO SCH ×2 (10:25→14:27)
[2019-06-03] MEDS: FERROUS SULFATE 325 MG TABLET PO SCH (10:25)
[2019-06-03] MEDS: LACTULOSE SYRUP 20 GM/30 ML UDCUP PO SCH ×2 (10:26→14:28)
[2019-06-03] MEDS: MAGNESIUM OXIDE 400 MG TABLET PO SCH (10:26)
[2019-06-03] MEDS: FUROSEMIDE 20 MG TABLET PO SCH (10:26)
[2019-06-03] MEDS: URSODIOL 300 MG CAPSULE PO SCH (10:35)
[2019-06-03 12:01] VITALS: BP 105/40
--- NOTE | 2019-06-03 14:32 | PDOC DISCHARGE SUMMARY ---
Impression - Admit/DC Date/PCP Admission Date/Primary Care Provider: 05/31/19 14:07 RUTH SHELDON Discharge Date: 06/03/19 - Discharge Diagnosis (1) Hepatic encephalopathy Is this a current diagnosis for this admission?: Yes (2) Hypothermia Is this a current diagnosis for this admission?: Yes (3) Metabolic encephalopathy Is this a current diagnosis for this admission?: Yes (4) Hyperammonemia Is this a current diagnosis for this admission?: Yes (5) Chronic liver failure Is this a current diagnosis for this admission?: Yes (6) Cirrhosis Is this a current diagnosis for this admission?: Yes (7) Diabetes mellitus Is this a current diagnosis for this admission?: Yes (8) Portopulmonary hypertension Is this a current diagnosis for this admission?: Yes (9) 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 hypertension Is this a current diagnosis for this admission?: Yes - Additional Information Resuscitation Status: Full Code Discharge Diet: As Tolerated Discharge Activity: Activity As Tolerated Referrals: ELIZABETH CHEN FNP-C [Primary Care Provider] - 06/10/19 1:00 pm Home Medications: Pantoprazole Sodium [Protonix [address] Tablet] 40 mg PO QAM 03/14/19 Levothyroxine Sodium 150 mcg PO Q6AM 30 Days 04/26/19 Midodrine HCl [Proamatine 5 mg Tablet] 10 mg PO TID 30 Days tablet 04/26/19 Ursodiol [Actigall 300 mg Capsule] 300 mg PO Q12 30 Days 04/26/19 Cyanocobalamin (Vitamin B-12) [Vitamin B-12 1000 mcg Tablet] 1,000 mcg PO DAILY 05/25/19 Ferrous Sulfate [Feosol 325 mg Tablet] 325 mg PO BID 05/25/19 Insulin Aspart [Novolog Flexpen] 0 unit SUBCUT .SLD SCALE 05/25/19 Magnesium Oxide [Magnesium] 250 mg PO DAILY 05/25/19 Multivitamin [Tab-A-Natalia (Multiple Vitamin) Tablet] 1 tab PO DAILY 05/25/19 Sildenafil Citrate [Revatio 20 mg Tablet] 10 mg PO MEALS 05/25/19 Furosemide [Lasix 20 mg Tablet] 60 mg PO DAILY 05/31/19 Insulin Degludec [Tresiba Flextouch U-200] 6 unit SQ QHS 05/31/19 Insulin Degludec [Tresiba Flextouch U-200] 16 unit SQ QAM 05/31/19 Potassium Chloride [Klor-Con M20] 20 meq PO DAILY 05/31/19 Rifaximin [Xifaxan 550 mg Tablet] 550 mg PO TID 05/31/19 Spironolactone [Aldactone 25 mg Tablet] 25 mg PO DAILY 05/31/19 Lactulose [Cephulac Syrup 20 gm/30 ml Udcup] 20 gm PO QID #0 06/03/19 History of Present Illiness History of Present Illness: MAURA CHRIS is a 69 year old female with past medical history as below who came to the hospital after 2 to 3 days of progressive worsening confusion consistent with previous episodes of hepatic encephalopathy. Found to have markedly elevated ammonia on admission up to 116. Questionable medication compliance at home. Patient somnolent initially then became agitated then calm again. Potential hypothermia on admission was likely malfunctioning thermometer in the ER as temperature was completely normal after patient moved to the floor without any interventions for this specifically. Patient was given lactulose enema IA rectal tube, unfortunately in ED when this was done patient suffered a very small mild abrasion of the rectum which caused some specks of blood to appear in stool, tube was removed and was not replaced, no further bleeding was noted. Patient admitted for further treatment of hepatic encephalopathy. Hospital Course Hospital Course: Hepatic encephalopathy - RESOLVED Ammonia level significantly elevated 116 on admission, has been high many times in the past whenever she does not have an appropriate number of bowel movements per day Suspect patient is not taking enough of her laxative medications at home as CT showed constipation on admission; dose and frequency need to be more dependent upon bowel movement frequency rather than a strict regimen that does not change Lactulose enema given in ED but rectal tube slipped out and caused a very mild abrasion with a speck of blood, no further bleeding was noted and tube was not replaced Continue oral lactulose, give lactulose enema if unable to take oral; continue rifaximin Initially not oriented at all on admission; persistently confused, intermitt ently refusing lactulose, when patient did eventually start taking lactulose her mentation improved substantially as her bowel movements resumed -Back to baseline mentation per pt and ; smiling and stating she feels very well, requests to go home; refuses HH as he is worried about COVID carriers coming to their home (2) Resolved Hypothermia Doubt this was true hypothermia as temperature jose miguel 3 degrees without any intervention between the ER in the medical floor; suspect erroneous temperature detection in the ER which seems to be a pattern with patient slightly; temperature back to normal on the floor Give warming blankets if temperature drops again Completely resolved and has not recurred (3) Metabolic encephalopathy (4) Hyperammonemia Due to cirrhosis Lactulose and rifaximin as above; titrate lactulose and potentially add Dulcolax oral and/or rectal if needed to achieve 2-3 soft bowel movements per day; long d/w about this on multiple occasions Intermittently can recheck ammonia to make sure it is trending down but the actual value does not specifically correlate with mentation in these patients (5) Chronic liver failure (6) Cirrhosis (7) Diabetes mellitus -home insulin regimen restarted (8) Portopulmonary hypertension (9) 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 hypertension Physical Exam Vital Signs: Temp Pulse Resp BP Pulse Ox 97.9 F 79 15 105/40 L 94 06/03/19 11:00 06/03/19 11:00 06/03/19 11:00 06/03/19 11:00 06/03/19 11:00 Intake & Output 06/02/19 06/03/19 06/04/19 06:59 06:59 06:59 Intake Total 640 1436 Output Total 1390 770 Balance -750 666 Weight 54.1 kg 56.7 kg 56.7 kg General appearance: PRESENT: no acute distress, well-developed, well-nourished Head exam: PRESENT: atraumatic, normocephalic Eye exam: PRESENT: conjunctiva pink Mouth exam: PRESENT: moist Respiratory exam: PRESENT: clear to auscultation josh. ABSENT: rales, rhonchi, wheezes Cardiovascular exam: PRESENT: RRR. ABSENT: diastolic murmur, rubs, systolic murmur GI/Abdominal exam: PRESENT: normal bowel sounds, soft. ABSENT: distended, guarding, mass, organolmegaly, rebound, tenderness Rectal exam: PRESENT: deferred Neurological exam: PRESENT: alert, awake, oriented to person, oriented to place, oriented to time, oriented to situation Psychiatric exam: PRESENT: appropriate affect, normal mood Skin exam: PRESENT: dry, intact, warm Results Laboratory Results: WBC 4.3 10^3/uL (4.0-10.5) 06/03/19 04:26 RBC 2.83 10^6/uL (3.72-5.28) L 06/03/19 04:26 Hgb 9.6 g/dL (12.0-15.5) L 06/03/19 04:26 Hct 27.6 % (36.0-47.0) L 06/03/19 04:26 MCV 98 fl (80-97) H 06/03/19 04:26 MCH 33.8 pg (27.0-33.4) H 06/03/19 04:26 MCHC 34.7 g/dL (32.0-36.0) 06/03/19 04:26 RDW 18.4 % (11.5-14.0) H 06/03/19 04:26 Plt Count 139 10^3/uL (150-450) L 06/03/19 04:26 Lymph % (Auto) 21.3 % (13-45) 06/03/19 04:26 [place] % (Auto) 10.2 % (3-13) 06/03/19 04:26 Eos % (Auto) 5.4 % (0-6) 06/03/19 04:26 Baso % (Auto) 0.6 % (0-2) 06/03/19 04:26 Absolute Neuts (auto) 2.7 10^3/uL (1.7-8.2) 06/03/19 04:26 Absolute Lymphs (auto) 0.9 10^3/uL (0.5-4.7) 06/03/19 04:26 Absolute Monos (auto) 0.4 10^3/uL (0.1-1.4) 06/03/19 04:26 Absolute Eos (auto) 0.2 10^3/uL (0.0-0.6) 06/03/19 04:26 Absolute Basos (auto) 0.0 10^3/uL (0.0-0.2) 06/03/19 04:26 Seg Neutrophils % 62.5 % (42-78) 06/03/19 04:26 Toxic Granulation 1+ 06/01/19 06:28 Large Platelets PRESENT 05/31/19 10:36 Platelet Comment DECREASED 06/02/19 05:35 Polychromasia 1+ 05/31/19 10:36 Poikilocytosis 1+ 06/01/19 06:28 Basophilic Stippling PRESENT 06/02/19 05:35 Anisocytosis 1+ 06/02/19 05:35 Tear Drop Cells 1+ 06/01/19 06:28 Ovalocytes SLIGHT 06/02/19 05:35 PT 14.8 SEC (11.4-15.4) 05/31/19 10:36 INR 1.15 05/31/19 10:36 APTT 36.9 SEC (23.5-35.8) H 05/31/19 10:36 VBG pH 7.48 (7.30-7.42) H 05/31/19 12:01 VBG pCO2 35.9 mmHg (35-63) 05/31/19 12:01 VBG HCO3 26.1 mmol/L (20-32) 05/31/19 12:01 VBG Base Excess 2.7 mmol/L 05/31/19 12:01 Sodium 134.9 mmol/L (137-145) L 05/31/19 16:39 Potassium 4.2 mmol/L (3.6-5.0) 05/31/19 16:39 Chloride 102 mmol/L (98-107) 05/31/19 16:39 Carbon Dioxide 25 mmol/L (22-30) 05/31/19 16:39 Anion Gap 8 (5-19) 05/31/19 16:39 BUN 33 mg/dL (7-20) H 05/31/19 16:39 Creatinine 1.04 mg/dL (0.52-1.25) 05/31/19 16:39 Est GFR ( Amer) > 60 (>60) 05/31/19 16:39 Est GFR (MDRD) Non-Af 52 (>60) L 05/31/19 16:39 Glucose 87 mg/dL (75-110) 05/31/19 16:39 POC Glucose 277 mg/dL (70-110) H 06/03/19 11:07 Lactic Acid 1.2 mmol/L (0.7-2.1) 05/31/19 10:36 Calcium 8.8 mg/dL (8.4-10.2) 05/31/19 16:39 Phosphorus 3.8 mg/dL (2.5-4.5) 06/01/19 06:28 Magnesium 2.1 mg/dL (1.6-2.3) 06/01/19 06:28 Total Bilirubin 2.2 mg/dL (0.2-1.3) H 05/31/19 10:36 Direct Bilirubin 1.2 mg/dL (0.0-0.4) H 05/31/19 10:36 Neonat Total Bilirubin Not Reportable 05/31/19 10:36 Neonat Direct Bilirubin Not Reportable 05/31/19 10:36 Neonat Indirect Bili Not Reportable 05/31/19 10:36 AST 29 U/L (14-36) 05/31/19 10:36 ALT 14 U/L (<35) 05/31/19 10:36 Alkaline Phosphatase 166 U/L (38-126) H 05/31/19 10:36 Ammonia 102.8 umol/L (9-33) H 06/03/19 04:26 Troponin I < 0.012 ng/mL 05/31/19 10:36 Total Protein 7.6 g/dL (6.3-8.2) 05/31/19 10:36 Albumin 3.2 g/dL (3.5-5.0) L 05/31/19 10:36 Lipase 43.7 U/L (23-300) 05/31/19 10:36 TSH 0.61 uIU/mL (0.47-4.68) 05/31/19 16:39 Urine Color YELLOW 05/31/19 10:51 Urine Appearance SLIGHTLY-CLOUDY 05/31/19 10:51 Urine pH 6.0 (5.0-9.0) 05/31/19 10:51 Ur Specific [place] 1.009 05/31/19 10:51 Urine Protein NEGATIVE mg/dL (NEGATIVE) 05/31/19 10:51 Urine Glucose (UA) NEGATIVE mg/dL (NEGATIVE) 05/31/19 10:51 Urine Ketones NEGATIVE mg/dL (NEGATIVE) 05/31/19 10:51 Urine Blood NEGATIVE (NEGATIVE) 05/31/19 10:51 Urine Nitrite NEGATIVE (NEGATIVE) 05/31/19 10:51 Urine Bilirubin NEGATIVE (NEGATIVE) 05/31/19 10:51 Urine Urobilinogen NEGATIVE mg/dL (<2.0) 05/31/19 10:51 Ur Leukocyte Esterase NEGATIVE (NEGATIVE) 05/31/19 10:51 Urine WBC (Auto) 4 /HPF 05/31/19 10:51 Urine RBC (Auto) 0 /HPF 05/31/19 10:51 Squamous Epi Cells Auto 2 /HPF 05/31/19 10:51 U Non-Squamous Epis Auto 4 /HPF 05/31/19 10:51 Urine Ascorbic Acid 40 (NEGATIVE) H 05/31/19 10:51 Acetaminophen < 10 ug/mL (10-30) L 05/31/19 10:36 Serum Alcohol < 10 mg/dL (NONE DETECTED) 05/31/19 10:36 05/31/19 10:36 Troponin I < 0.012 Impressions: Chest X-Ray 05/31/19 10:40 IMPRESSION: Increase congestive heart failure and bilateral pleural effusions with basilar opacities. Head CT 05/31/19 10:46 IMPRESSION: NORMAL BRAIN CT WITHOUT CONTRAST. EVIDENCE OF ACUTE STROKE: NO. Abdomen/Pelvis CT 05/31/19 12:10 IMPRESSION: 1. Moderate right and small to moderate left pleural effusions with compressive atelectasis at the lung bases. 2. Moderate to severe cardiomegaly. 3. TIPS procedure with hepatic cirrhosis, splenomegaly and portal hypertension. TIPS stent appears patent. 4. Large amount of stool throughout the colon which can be seen with constipation. No bowel obstruction. 5. Chronic L1 compression fracture unchanged from prior examination. Stroke Is this a Stroke Patient?: No Acute Heart Failure - Is this a Heart Failure Patient?: Yes Documentation of LVEF assessment?: Yes LVEF < 40%?: No- if no continue to question #3 a) Discharged on ACEI?: N/A Discharged on ARB b) Discharges on ARB?: Yes c) Discharged on ARNI?: No-Document Contraindications Reason(s) not discharged on ARNI: ACEI use within the prior 36 hours d) Discharged on evidence-based Beta nahid(carvedilol, sustained release met oprolol succinate, or bisoprolol)?: Yes e) For LVEF <35%, discharged on Aldosterone antagonist?: N/A (LVEF > or = 35%) 3. Anticoagulant therapy for permanect/persistent/paraoxysmal Afib or Aflutter: N/A Follow-up Appointment scheduled within 7 days?: Yes
== END 2019-06-03 15:34 | disposition home health service (06) | DRG 441 ==
LOC: ER 10:14 → EH 14:07 → 4N 14:59
PROVIDERS: ADMIT Internal Medicine; ATTEND Internal Medicine
DX: K72.10 Chronic hepatic failure without coma (principal); G93.41 Metabolic encephalopathy; E72.20 Disorder of urea cycle metabolism, unspecified; K76.6 Portal hypertension; I27.20 Pulmonary hypertension, unspecified; I11.0 Hypertensive heart disease with heart failure; D64.9 Anemia, unspecified; E11.65 Type 2 diabetes mellitus with hyperglycemia; K74.60 Unspecified cirrhosis of liver; K59.00 Constipation, unspecified; J44.9 Chronic obstructive pulmonary disease, unspecified; E03.9 Hypothyroidism, unspecified; K21.9 Gastro-esophageal reflux disease without esophagitis; M19.90 Unspecified osteoarthritis, unspecified site; Z79.4 Long term (current) use of insulin; Z79.899 Other long term (current) drug therapy
CPT/HCPCS: 36415; 70450; 71045; 74177; 80053; 80307; 81001; 82140; 82803; 82962; 83605; 83690; 83735; 84100; 84443; 84484; 85025; 85610; 85730; 87040; 93005; 93010; 96360; 96361; 99285; A9270-GY; J1644; J1815; J3490; J7050

== ENCOUNTER 2019-07-28 07:07 | Inpatient (IN) | payer MEDICARE ==
[2019-07-28 07:36] LABS: ABSOLUTE EOSINOPHILS # (AUTO) 0.1 10^3/uL (0.0-0.6); ABSOLUTE LYMPHOCYTES (AUTO) 0.7 10^3/uL (0.5-4.7); ABSOLUTE MONOCYTES (AUTO) 0.4 10^3/uL (0.1-1.4); BASOPHILS % (AUTO) 0.3 % (0-2); EOSINOPHILS % (AUTO) 1.8 % (0-6); HEMATOCRIT 28.9 % (36.0-47.0); HEMOGLOBIN 9.8 g/dL (12.0-15.5); MEAN CORPUSCULAR HEMOGLOBIN 32.9 pg (27.0-33.4); MEAN CORPUSCULAR HGB CONC 33.9 g/dL (32.0-36.0); MEAN CORPUSCULAR VOLUME 97 fl (80-97); MONOCYTES % (AUTO) 9.6 % (3-13); PLATELET COUNT 122 10^3/uL (150-450); RED BLOOD COUNT 2.98 10^6/uL (3.72-5.28); RED CELL DISTRIBUTION WIDTH 16.3 % (11.5-14.0); SEGMENTED NEUTROPHILS % (AUTO) 71.3 % (42-78); TOTAL CELLS COUNTED % (AUTO) 100 %; WHITE BLOOD COUNT 4.2 10^3/uL (4.0-10.5)
[2019-07-28 07:50] LABS: VENOUS BLOOD BASE EXCESS 5.5 mmol/L; VENOUS BLOOD HCO3 29.3 mmol/L (20-32); VENOUS BLOOD PH 7.48 (7.30-7.42)
[2019-07-28 07:52] LABS: ALBUMIN 2.7 g/dL (3.5-5.0); ALKALINE PHOSPHATASE 148 U/L (38-126); ANION GAP 5 (5-19); ASPARTATE AMINO TRANSFERASE 25 U/L (14-36); BILIRUBIN,DIRECT 0.5 mg/dL (0.0-0.4); BILIRUBIN,TOTAL 1.5 mg/dL (0.2-1.3); BLOOD UREA NITROGEN 31 mg/dL (7-20); CALCIUM 8.7 mg/dL (8.4-10.2); CARBON DIOXIDE 30 mmol/L (22-30); CHLORIDE 103 mmol/L (98-107); GLUCOSE 71 mg/dL (75-110); POTASSIUM 4.4 mmol/L (3.6-5.0); TOTAL PROTEIN 6.6 g/dL (6.3-8.2)
--- NOTE | 2019-07-28 07:52 | ER Document Report ---
Entered by AUNDREA ALAMO SCRIBE 07/28/19 0731 Acting as scribe for:CAMACHO PORTER MD ED General - General Stated Complaint: UNRESPONSIVE Time Seen by Provider: 07/28/19 07:25 Mode of Arrival: Ambulatory Information source: Patient Notes: This 69-year-old female patient with frequent episodes of encephalopathy related to liver failure presents to the emergency department today unresponsive. According to EMS, the on scene did not seem to be too considered about the patient's current state, adding that she "usually gets encephalopathic every six weeks". Patient does have a past history of gastroesophageal varices with multiple episodes of bleeding. She had a TIPS procedure done a few years ago. She was admitted here on 05/25/2019, and admitted again on 05/31/2019 for hepatic encephalopathy. TRAVEL OUTSIDE OF THE [place] IN LAST 30 DAYS: No - Related Data Allergies/Adverse Reactions: No Known Allergies Allergy (Verified 07/28/19 07:38) Past Medical History - General Information source: [facility] Records Cannot obtain history due to: Altered mental status - Social History Smoking Status: Former Smoker Family History: Reviewed & Not Pertinent, COPD - Past Medical History Cardiac Medical History: Reports: Hx Congestive Heart Failure, Hx Hypertension Pulmonary Medical History: Reports: Hx COPD Endocrine Medical History: Reports: Hx Diabetes Mellitus Type 2, Hx Hypothyroidism GI Medical History: Reports: Hx Cirrhosis, Hx Gastroesophageal Reflux Disease Musculoskeletal Medical History: Reports Hx Arthritis Psychiatric Medical History: Denies: Hx Depression Past Surgical History: Reports: Hx Abdominal Surgery - hernia repair, Hx Section - x2, Hx Cholecystectomy, Hx Herniorrhaphy, Hx Hysterectomy, Hx Orthopedic Surgery, Other - Tips procedure - Immunizations Hx Pneumococcal Vaccination: 11/26/18 Review of Systems - Review of Systems -: Yes ROS unobtainable due to patient's medical condition Physical Exam - Vital signs Vitals: Temp 99.4 F 07/28/19 07:32 - General General appearance: Unresponsive - HEENT Head: Normocephalic, Atraumatic Eyes: Normal Conjunctiva: Normal - Respiratory Respiratory status: Other - mouth breathing Breath sounds: Normal - Cardiovascular Rhythm: Regular Heart sounds: Normal auscultation Murmur: No - Abdominal Inspection: Normal Distension: No distension Bowel sounds: Normal - Extremities General upper extremity: Normal inspection, Nontender General lower extremity: Edema - 1+ bilaterally - Neurological Neuro grossly intact: No Notes: Positive gag reflex - Skin Skin Temperature: Warm Skin Moisture: Dry Skin Color: Normal Course - Vital Signs Vital signs: Temp Pulse Resp BP Pulse Ox 99.4 F 86 27 H 126/60 H 95 07/28/19 07:37 07/28/19 07:37 07/28/19 12:02 07/28/19 12:02 07/28/19 12:02 - Laboratory Result Diagrams: 07/28/19 07:19 07/28/19 07:19 Laboratory results interpreted by me: 07/28/19 07/28/19 07/28/19 07:19 07:19 07:19 RBC 2.98 L Hgb 9.8 L Hct 28.9 L RDW 16.3 H Plt Count 122 L VBG pH BUN 31 H Glucose 71 L Total Bilirubin 1.5 H Direct Bilirubin 0.5 H Alkaline Phosphatase 148 H Ammonia 222.4 H Albumin 2.7 L Urine Ascorbic Acid 07/28/19 07/28/19 07:19 07:55 RBC Hgb Hct RDW Plt Count VBG pH 7.48 H BUN Glucose Total Bilirubin Direct Bilirubin Alkaline Phosphatase Ammonia Albumin Urine Ascorbic Acid 40 H - Diagnostic Test Radiology reviewed: Image reviewed, Reports reviewed - Chest x-ray shows bilateral atelectasis with pleural effusions, unchanged from 05/31/2019. - EKG Interpretation by Me EKG shows normal: Sinus rhythm, [place], QRS Complexes. abnormal: Intervals - Borderline prolonged QT interval, ST-T Waves - Borderline anterior T abnormalities Rate: Normal - 82 Rhythm: NSR, PVC's Voltage: Decreased voltage - Consults Dr. Rubi Time consulted: 08:35 Consulted provider: will come to ER - He will decide on a room assignment after he comes to see the patient. Critical Care Note - Critical Care Note Total time excluding time spent on procedures (mins): 30 Comments: At least 30 minutes time was spent examining the patient, repeat exams, discussing the patient with the hospitalist service. Lab work and x-rays were reviewed. Prior charts with diagnoses, treatment, and response to treatment were reviewed to gait and understanding of why this patient repeatedly comes in with excessively high ammonia levels. Discharge - Discharge Clinical Impression: Hepatic encephalopathy, Hyperammonemia Condition: Fair Disposition: ADMITTED INPATIENT Admitting Provider: Greyson (Hospitalist) Unit Admitted: IMCU I personally performed the services described in the documentation, reviewed and edited the documentation which was dictated to the scribe in my presence, and it accurately records my words and actions.
[2019-07-28 07:54] LABS: ALCOHOL < 10 mg/dL (NONE DETECTED)
[2019-07-28 08:14] LABS: APPEARANCE,URINE CLEAR; BILIRUBIN,URINE NEGATIVE (NEGATIVE); COLOR,URINE YELLOW; GLUCOSE, URINE NEGATIVE (NEGATIVE); KETONES,URINE NEGATIVE (NEGATIVE); LEUKOCYTE ESTERASE,URINE NEGATIVE (NEGATIVE); NITRITE,URINE NEGATIVE (NEGATIVE); PROTEIN,URINE NEGATIVE (NEGATIVE); URINE SPECIFIC GRAVITY 1.013; UROBILINOGEN,URINE NEGATIVE mg/dL (<2.0)
[2019-07-28] MEDS ORDERED: LACTULOSE SYRUP 20 GM/30 ML UDCUP PR ONE ×2 (08:17→09:00)
[2019-07-28 08:27] LABS: URINE AMPHETAMINES SCREEN NEGATIVE; URINE BARBITURATES SCREEN NEGATIVE; URINE BENZODIAZEPINES SCREEN NEGATIVE; URINE COCAINE SCREEN NEGATIVE; URINE MARIJUANA (THC) SCREEN NEGATIVE; URINE METHADONE SCREEN NEGATIVE; URINE PHENCYCLIDINE SCREEN NEGATIVE
[2019-07-28] MEDS ORDERED: DEXTROSE 50%-WATER 25 GM/50 ML DISP.SYRIN IV PRN (09:05)
[2019-07-28] MEDS ORDERED: GLUCAGON,HUMAN RECOMB 1 MG INJ IM PRN (09:05)
[2019-07-28] MEDS ORDERED: DEXTROSE 40% GEL 15 GM TUBE PO PRN ×2 (09:05)
--- NOTE | 2019-07-28 09:30 | RADIOLOGY REPORT (SQ) ---
EXAM DESCRIPTION: CHEST SINGLE VIEW IMAGES COMPLETED DATE/TIME: 07/28/2019 9:08 am REASON FOR STUDY: Hepatic encephalopathy COMPARISON: AP view of the chest from 05/31/2019. EXAM PARAMETERS: NUMBER OF VIEWS: One view. TECHNIQUE: An AP view of the chest was obtained. RADIATION DOSE: NA LIMITATIONS: None. FINDINGS: LUNGS AND PLEURA: Dense bilateral basilar predominant opacities that obscure the contours of the hemidiaphragms and blunt the costophrenic sulci. The interstitium is prominent. There is no pneumothorax. MEDIASTINUM AND HILAR STRUCTURES: Stable mediastinal and hilar contours. HEART AND VASCULAR STRUCTURES: Stable enlarged cardiac silhouette. The pulmonary vasculature is meg stinct. BONES: No acute findings. HARDWARE: None in the chest. OTHER: No other finding. IMPRESSION: 1. Dense bilateral basilar predominant opacities that likely represent a combination of pleural fluid atelectasis. The opacities are unchanged compared to 05/31/2019. 2. Cardiomegaly and mild indistinctness of the interstitium. TECHNICAL DOCUMENTATION: JOB ID: [id number] 2010 [employer]- All Rights Reserved Reading location - IP/workstation name: [email or web address]
[2019-07-28] MEDS: DEXTROSE 50%-WATER 25 GM/50 ML DISP.SYRIN IV PRN ×2 (12:27→23:19)
[2019-07-28] MEDS: INSULIN LISPRO 100 UNIT/ML 3 ML VIAL SUBCUT SCH ×2 (12:43→18:50)
--- NOTE | 2019-07-28 15:11 | PDOC H&P ---
History of Present Illness Admission Date/PCP: 07/28/19 09:14 RUTH SHELDON History of Present Illness: MAURA CHRIS is a 69 year old female with a history of hepatic cirrhosis who pr esents encephalopathic. All the information obtained from the medical record. The patient is unable to provide a history and her is not here. Apparently he called EMS. He told them "she gets like this every 6 weeks or so it has to be admitted to the hospital." She was here back in May, and compliance with her medication regimen at home was in question. I do not know if she manages her own medications or if her manages them for her. She was protecting her airway but was otherwise unresponsive. Her ammonia level was 222. Past Medical History Cardiac Medical History: Reports: Congestive Heart Failure, Hypertension Pulmonary Medical History: Reports: Chronic Obstructive Pulmonary Disease (COPD) Endocrine Medical History: Reports: Diabetes Mellitus Type 1, Diabetes Mellitus Type 2, Hypothyroidism GI Medical History: Reports: Cirrhosis, Gastroesophageal Reflux Disease Musculoskeltal Medical History: Reports: Arthritis Psychiatric Medical History: Denies: Depression Hematology: Reports: Anemia Past Surgical History Past Surgical History: Reports: Section - x2, Cholecystectomy, Herniorrhaphy, Hysterectomy, Orthopedic Surgery, Other - Tips procedure Social History Smoking Status: Former Smoker Frequency of Alcohol Use: None Hx Recreational Drug Use: Yes Drugs: None Hx Prescription Drug Abuse: No Family History Family History: Reviewed & Not Pertinent, COPD Parental Family History Reviewed: No - Unable to obtain Children Family History Reviewed: No - Unable to obtain Sibling(s) Family History Reviewed.: No - Unable to obtain Medication/Allergy Home Medications: Pantoprazole Sodium [Protonix [address] Tablet] 40 mg PO QAM 03/14/19 Levothyroxine Sodium 150 mcg PO Q6AM 30 Days 04/26/19 Midodrine HCl [Proamatine 5 mg Tablet] 10 mg PO TID 30 Days tablet 04/26/19 Ursodiol [Actigall 300 mg Capsule] 300 mg PO Q12 30 Days 04/26/19 Cyanocobalamin (Vitamin B-12) [Vitamin B-12 1000 mcg Tablet] 1,000 mcg PO DAILY 05/25/19 Ferrous Sulfate [Feosol 325 mg Tablet] 325 mg PO BID 05/25/19 Insulin Aspart [Novolog Flexpen] 0 unit SUBCUT .SLD SCALE 05/25/19 Magnesium Oxide [Magnesium] 250 mg PO DAILY 05/25/19 Multivitamin [Tab-A-Natalia (Multiple Vitamin) Tablet] 1 tab PO DAILY 05/25/19 Sildenafil Citrate [Revatio 20 mg Tablet] 10 mg PO MEALS 05/25/19 Furosemide [Lasix 20 mg Tablet] 60 mg PO DAILY 05/31/19 Insulin Degludec [Tresiba Flextouch U-200] 6 unit SQ QHS 05/31/19 Insulin Degludec [Tresiba Flextouch U-200] 16 unit SQ QAM 05/31/19 Potassium Chloride [Klor-Con M20] 20 meq PO DAILY 05/31/19 Rifaximin [Xifaxan 550 mg Tablet] 550 mg PO TID 05/31/19 Spironolactone [Aldactone 25 mg Tablet] 25 mg PO DAILY 05/31/19 Lactulose [Cephulac Syrup 20 gm/30 ml Udcup] 20 gm PO QID #0 06/03/19 Allergies/Adverse Reactions: No Known Allergies Allergy (Verified 07/28/19 07:38) Review of Systems ROS unobtainable: Due to mental status Physical Exam Vital Signs: Temp Pulse Resp BP Pulse Ox 99.4 F 86 27 H 126/60 H 95 07/28/19 07:37 07/28/19 07:37 07/28/19 12:02 07/28/19 12:02 07/28/19 12:02 Intake & Output 07/27/19 07/28/19 07/29/19 06:59 06:59 06:59 Weight 50.5 kg General appearance: PRESENT: disheveled, mild distress, thin, other - Breathing comfortably, minimal response to noxious stimuli Head exam: PRESENT: atraumatic, normocephalic Eye exam: PRESENT: PERRLA - Sluggish. ABSENT: conjunctival injection, scleral icterus Ear exam: PRESENT: normal external ear exam Mouth exam: PRESENT: dry mucosa, neck supple Teeth exam: PRESENT: poor dentation Throat exam: ABSENT: post pharyngeal erythema Neck exam: PRESENT: full ROM. ABSENT: JVD, lymphadenopathy, meningismus, tenderness, thyromegaly Respiratory exam: PRESENT: clear to auscultation josh, symmetrical, unlabored. ABSENT: accessory muscle use, chest wall tenderness, crackles, prolonged expiratory phas, rhonchi, tachypnea, wheezes Cardiovascular exam: PRESENT: RRR, +S1, +S2 Pulses: PRESENT: normal carotid pulses Vascular exam: PRESENT: normal capillary refill GI/Abdominal exam: PRESENT: hypoactive bowel sounds, soft, tenderness. ABSENT: guarding, rebound Extremities exam: ABSENT: clubbing, pedal edema Musculoskeletal exam: PRESENT: normal inspection. ABSENT: deformity Neurological exam: PRESENT: altered, other - Response to noxious stimuli, but minimally so Skin exam: PRESENT: dry, warm, other - Dusky but not jaundiced Results Laboratory Results: 07/28/19 07:19 07/28/19 07:19 07/28/19 07/28/19 07/28/19 07:19 07:19 07:19 WBC 4.2 RBC 2.98 L Hgb 9.8 L Hct 28.9 L MCV 97 MCH 32.9 MCHC 33.9 RDW 16.3 H Plt Count 122 L Seg Neutrophils % 71.3 VBG pH VBG pCO2 VBG HCO3 VBG Base Excess Sodium 137.8 Potassium 4.4 Chloride 103 Carbon Dioxide 30 Anion Gap 5 BUN 31 H Creatinine 0.90 Est GFR ( Amer) > 60 Glucose 71 L Calcium 8.7 Magnesium 1.9 Total Bilirubin 1.5 H AST 25 Alkaline Phosphatase 148 H Ammonia 222.4 H Total Protein 6.6 Albumin 2.7 L Urine Color Urine Appearance Urine pH Ur Specific [place] Urine Protein Urine Glucose (UA) Urine Ketones Urine Blood Urine Nitrite Ur Leukocyte Esterase Urine WBC (Auto) Urine RBC (Auto) 07/28/19 07/28/19 07:19 07:55 WBC RBC Hgb Hct MCV MCH MCHC RDW Plt Count Seg Neutrophils % VBG pH 7.48 H VBG pCO2 40.0 VBG HCO3 29.3 VBG Base Excess 5.5 Sodium Potassium Chloride Carbon Dioxide Anion Gap BUN Creatinine Est GFR ( Amer) Glucose Calcium Magnesium Total Bilirubin AST Alkaline Phosphatase Ammonia Total Protein Albumin Urine Color YELLOW Urine Appearance CLEAR Urine pH 5.0 Ur Specific [place] 1.013 Urine Protein NEGATIVE Urine Glucose (UA) NEGATIVE Urine Ketones NEGATIVE Urine Blood NEGATIVE Urine Nitrite NEGATIVE Ur Leukocyte Esterase NEGATIVE Urine WBC (Auto) 4 Urine RBC (Auto) 1 Impressions: Chest X-Ray 07/28/19 08:46 IMPRESSION: 1. Dense bilateral basilar predominant opacities that likely represent a combination of pleural fluid atelectasis. The opacities are unchanged compared to 05/31/2019. 2. Cardiomegaly and mild indistinctness of the interstitium. Assessment and Plan - Diagnosis (1) Hepatic encephalopathy Is this a current diagnosis for this admission?: Yes Plan: Her having to do lactulose enemas because she is not awake enough to be able to take lactulose by mouth, and we see in her chart that she has a history of esophageal varices and therefore do not want to introduce an NG tube. Once she is able to take p.o. we will transition the enemas to oral lactulose. 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 (5) 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 hypertension Is this a current diagnosis for this admission?: Yes Plan: Not acutely exacerbated, will continue her home medications when she is able to take p.o. - Time Time Spent with patient: 35 or more minutes - Inpatient Certification Based on my medical assessment, after consideration of the patient's comorbidities, presenting symptoms, or acuity I expect that the services needed warrant INPATIENT care.: Yes I certify that my determination is in accordance with my understanding of Medicare's requirements for reasonable and necessary INPATIENT services [42 CFR 412.3e].: Yes Medical Necessity: Significant Comorbidiites Make Outpatient Treatment Too Risk y, Need Close Monitoring Due to Risk of Patient Decompensation, Need For Continuous Telemetry Monitoring, Need for Neurological Checks, Risk of Complication if Not Cared For in Hospital
[2019-07-28] MEDS: LACTULOSE SYRUP 20 GM/30 ML UDCUP PR SCH ×2 (16:12→22:04)
[2019-07-28] MEDS: POTASSI CL 20 MEQ/D5-1/2NS 1L 1,000 ML IV PRN (16:12)
[2019-07-28] MEDS ORDERED: METOPROLOL TARTRATE PF/INJ 5 MG/5 ML SDV IV ONE ×2 (17:48→17:54)
--- NOTE | 2019-07-28 18:43 | RADIOLOGY REPORT (SQ) ---
EXAM DESCRIPTION: CHEST SINGLE VIEW IMAGES COMPLETED DATE/TIME: 07/28/2019 6:30 pm REASON FOR STUDY: spontaneous sinus tach COMPARISON: Earlier the same day. NUMBER OF VIEWS: One view. TECHNIQUE: Single frontal radiographic image of the chest acquired. LIMITATIONS: None. FINDINGS: LUNGS AND PLEURA: There is been a slight increase in right-sided airspace disease since th e earlier film. No other significant interval change with moderate bilateral pleural effusions. MEDIASTINUM AND HILAR STRUCTURES: Stable heart size and mediastinal structures. HEART AND VASCULAR STRUCTURES: Stable appearance. BONES: No acute findings. HARDWARE: None in the chest. OTHER: No other significant finding. IMPRESSION: Slight increase in the right-sided airspace disease as described. No other interval sherman nge. TECHNICAL DOCUMENTATION: JOB ID: [id number] 2010 [employer]- All Rights Reserved Reading location - IP/workstation name: [email or web address]
[2019-07-28] MEDS: LACTULOSE SYRUP 20 GM/30 ML UDCUP PO SCH ×2 (18:50→23:16)
[2019-07-28] MEDS: MIDODRINE HCL 5 MG TABLET PO SCH (18:51)
[2019-07-28] MEDS: RIFAXIMIN 550 MG TABLET PO SCH (18:51)
[2019-07-28 18:54] LABS: ABSOLUTE EOSINOPHILS # (AUTO) 0.1 10^3/uL (0.0-0.6); ABSOLUTE LYMPHOCYTES (AUTO) 0.6 10^3/uL (0.5-4.7); ABSOLUTE MONOCYTES (AUTO) 0.4 10^3/uL (0.1-1.4); ABSOLUTE NEUT (AUTO) 8.5 10^3/uL (1.7-8.2); BASOPHILS % (AUTO) 0.3 % (0-2); EOSINOPHILS % (AUTO) 0.9 % (0-6); HEMATOCRIT 34.4 % (36.0-47.0); HEMOGLOBIN 11.5 g/dL (12.0-15.5); LYMPHOCYTES % (AUTO) 6.3 % (13-45); MEAN CORPUSCULAR HEMOGLOBIN 32.7 pg (27.0-33.4); MEAN CORPUSCULAR HGB CONC 33.5 g/dL (32.0-36.0); MEAN CORPUSCULAR VOLUME 98 fl (80-97); MONOCYTES % (AUTO) 4.5 % (3-13); PLATELET COUNT 155 10^3/uL (150-450); RED BLOOD COUNT 3.53 10^6/uL (3.72-5.28); RED CELL DISTRIBUTION WIDTH 16.8 % (11.5-14.0); TOTAL CELLS COUNTED % (AUTO) 100 %; WHITE BLOOD COUNT 9.7 10^3/uL (4.0-10.5)
[2019-07-28 18:55] LABS: ARTERIAL BLOOD BASE EXCESS 0 mmol/L; ARTERIAL BLOOD H2CO3 1.34 mmol/L (1.05-1.35); ARTERIAL BLOOD HCO3 25.4 mmol/L (20-24); ARTERIAL BLOOD O2 SATURATION 88.9 % (94-98); ARTERIAL BLOOD PCO2 44.5 mmHg (35-45); ARTERIAL BLOOD PH 7.38 (7.35-7.45); ARTERIAL BLOOD TOTAL CO2 26.8 mmol/L (21-25)
[2019-07-28 18:56] LABS: ARTERIAL BLOOD FIO2 100%
[2019-07-28 19:05] LABS: ALBUMIN 3.1 g/dL (3.5-5.0); ALKALINE PHOSPHATASE 155 U/L (38-126); ANION GAP 8 (5-19); ASPARTATE AMINO TRANSFERASE 28 U/L (14-36); BILIRUBIN,DIRECT 0.8 mg/dL (0.0-0.4); BILIRUBIN,TOTAL 2.3 mg/dL (0.2-1.3); BLOOD UREA NITROGEN 30 mg/dL (7-20); CARBON DIOXIDE 28 mmol/L (22-30); CHLORIDE 104 mmol/L (98-107); GLUCOSE 75 mg/dL (75-110); POTASSIUM 4.3 mmol/L (3.6-5.0); TOTAL PROTEIN 7.2 g/dL (6.3-8.2)
[2019-07-28] MEDS ORDERED: MORPHINE SULFATE 10 MG/ML INJ ONE (20:19)
[2019-07-28 20:32] LABS: ARTERIAL BLOOD H2CO3 1.13 mmol/L (1.05-1.35); ARTERIAL BLOOD HCO3 25.8 mmol/L (20-24); ARTERIAL BLOOD PCO2 37.6 mmHg (35-45); ARTERIAL BLOOD PH 7.46 (7.35-7.45); ARTERIAL BLOOD PO2 70.7 mmHg (80-100)
[2019-07-28] MEDS ORDERED: PROMETHAZINE HCL INJ 25 MG/1 ML VIAL IV PRN (20:33)
[2019-07-28] MEDS ORDERED: MORPHINE SULFATE 10 MG/ML INJ IV ONE (21:00)
--- NOTE | 2019-07-28 21:14 | Progress Note ---
Provider Note Provider Note: Critical CARE note: 07/28/2019 Critical care start time: 2007 Critical care issue: Acute hypoxemia I was called to evaluate the patient for a rapid response team effort due to acute hypoxemia and decreased responsiveness. Patient is noted to have an elevated ammonia level and was unresponsive earlier today. She had become more responsive but then relapsed into poor responsiveness and became very hypoxic with O2 sat dropping into the mid to low 80s. On exam she was found to have fine rales throughout her chest with markedly diminished breath sounds bilaterally at the bases and minimal wheezes noted on auscultation. Percussion revealed dullness at both bases. She was noted to be poorly responsive through out the exam but did move voluntarily. She was placed on BiPAP and after observation of improvement in her O2 sat in the 92-94 range ABGs were obtained and reviewed to be at or better than baseline for this patient. Patient's chest x-ray was reviewed and demonstrated bilateral pleural effusions with cardiomegaly and markedly increased pulmonary vasculature. The patient treated with 10 mg of morphine sulfate IV and she was given Lasix 40 mg IV. Patient's IV fluids will be discontinued. After a lengthy discussion with the embroidery worker provider it was determined the patient should be continued on the floor with current therapy and consideration for possible hospice or end-of-life therapy should be given and discussed with patient's family. Patient will be observed throughout the night for further developments. Critical care again time: 2113 Total critical care time: 28 minutes
--- NOTE | 2019-07-28 22:20 | EKG REPORT ---
SEVERITY:- ABNORMAL ECG - SINUS RHYTHM VENTRICULAR PREMATURE COMPLEX LOW VOLTAGE IN FRONTAL LEADS BORDERLINE T ABNORMALITIES, ANTERIOR LEADS BORDERLINE PROLONGED QT INTERVAL : Confirmed by: Kurt Dubois 28-Jul-2019 22:19:17
[2019-07-28] MEDS: PANTOPRAZOLE SODIUM 40 MG VIAL IV SCH (23:14)
[2019-07-28] MEDS: URSODIOL 300 MG CAPSULE PO SCH (23:16)
[2019-07-29] MEDS: INSULIN LISPRO 100 UNIT/ML 3 ML VIAL SUBCUT SCH ×4 (00:19→22:39)
[2019-07-29] MEDS ORDERED: DOPAMINE HCL/DEXTROSE 5%-WATER 800 MG/250 ML RTUINJ IV PRN (01:04)
[2019-07-29] MEDS ORDERED: DOPAMINE HCL 800 MG/D5W 250 ML IV PRN (01:29)
[2019-07-29] MEDS ORDERED: FUROSEMIDE INJ/PF 40 MG/4 ML SDV IV ONE (02:30)
[2019-07-29] MEDS: LACTULOSE SYRUP 20 GM/30 ML UDCUP PR SCH ×4 (04:33→22:37)
[2019-07-29 06:48] LABS: HEMATOCRIT 29.4 % (36.0-47.0); HEMOGLOBIN 9.9 g/dL (12.0-15.5); MEAN CORPUSCULAR HEMOGLOBIN 32.4 pg (27.0-33.4); MEAN CORPUSCULAR HGB CONC 33.6 g/dL (32.0-36.0); MEAN CORPUSCULAR VOLUME 96 fl (80-97); RED BLOOD COUNT 3.06 10^6/uL (3.72-5.28); RED CELL DISTRIBUTION WIDTH 16.4 % (11.5-14.0)
[2019-07-29] MEDS: LEVOTHYROXINE SODIUM 0.15 MG TABLET PO SCH (07:05)
[2019-07-29 07:08] LABS: ANION GAP 7 (5-19); BLOOD UREA NITROGEN 36 mg/dL (7-20); CALCIUM 8.6 mg/dL (8.4-10.2); CARBON DIOXIDE 26 mmol/L (22-30); CHLORIDE 105 mmol/L (98-107); GLUCOSE 80 mg/dL (75-110); POTASSIUM 4.3 mmol/L (3.6-5.0)
[2019-07-29 07:33] LABS: PLATELET COUNT 90 10^3/uL (150-450)
[2019-07-29] MEDS: FUROSEMIDE 40 MG TABLET PO SCH (07:57)
[2019-07-29] MEDS: FERROUS SULFATE 325 MG TABLET PO SCH (07:57)
[2019-07-29] MEDS: SPIRONOLACTONE 25 MG TABLET PO SCH (07:57)
[2019-07-29] MEDS ORDERED: FUROSEMIDE 20 MG TABLET PO SCH (08:00)
[2019-07-29] MEDS: MIDODRINE HCL 5 MG TABLET PO SCH ×3 (10:25→17:27)
[2019-07-29] MEDS: SILDENAFIL CITRATE 20 MG TABLET PO SCH ×3 (10:46→17:28)
[2019-07-29] MEDS: CYANOCOBALAMIN (VITAMIN B-12) 1,000 MCG TABLET PO SCH (10:46)
[2019-07-29] MEDS: URSODIOL 300 MG CAPSULE PO SCH ×2 (10:46→22:38)
[2019-07-29] MEDS: MAGNESIUM OXIDE 400 MG TABLET PO SCH (10:46)
[2019-07-29] MEDS: MULTIVITAMIN TABLET PO SCH (10:46)
[2019-07-29] MEDS: PANTOPRAZOLE SODIUM 40 MG VIAL IV SCH ×2 (10:47→22:40)
[2019-07-29] MEDS: RIFAXIMIN 550 MG TABLET PO SCH ×2 (10:47→17:27)
[2019-07-29] MEDS: LACTULOSE SYRUP 20 GM/30 ML UDCUP PO SCH ×4 (10:47→22:37)
[2019-07-29] MEDS: MEGESTROL ACETATE SUSP 400 MG/10 ML UDCUP PO SCH (10:48)
[2019-07-29] MEDS: POTASSI CL 20 MEQ/D5-1/2NS 1L 1,000 ML IV PRN (14:05)
--- NOTE | 2019-07-29 14:36 | PDOC PROGRESS REPORT ---
Subjective Progress Note for:: 07/29/19 Subjective:: The patient is a 69-year-old female with a past medical history of end-stage hepatic cirrhosis, CHF, hypertension, COPD, DM, hypothyroidism who was admitted 07/28/2019 with hepatic encephalitis. Patient was seen on morning rounds. She was found resting in bed, comfortably, on supplemental oxygen at 4 L/min; uses 2 L/min at baseline. She cannot recall the events of last night and tells me that she does not remember having difficulty breathing, " but it must have happened because the nurses were quite worried." This morning she states that she is feeling well and is hopeful to go home soon. She tells me that she has a good appetite and eats well at home. She confirms taking her medications as prescribed. She speaks at length at much her assists her with managing her medications and health conditions. She asks to advance her diet but otherwise has no new questions or concerns. She denies fever, headache, dizziness, chest pain, palpitations, dyspnea, orthopnea, abdominal pain, nausea vomiting diarrhea. Reports several bowel movements daily. No concerns per nursing. Reason For Visit: HEPATIC ENCEPHALOPATHY Physical Exam Vital Signs: Temp Pulse Resp BP Pulse Ox 97.2 F 87 18 98/44 L 97 07/29/19 11:55 07/29/19 13:30 07/29/19 11:55 07/29/19 13:30 07/29/19 11:55 Intake & Output 07/28/19 07/29/19 07/30/19 06:59 06:59 06:59 Intake Total 700 19 Output Total 450 Balance 250 19 Weight 50.9 kg General appearance: PRESENT: no acute distress, disheveled, thin, well-developed Head exam: PRESENT: atraumatic, normocephalic Eye exam: PRESENT: conjunctiva pink, EOMI, PERRLA. ABSENT: scleral icterus Mouth exam: PRESENT: moist, tongue midline Teeth exam: PRESENT: poor dentation Respiratory exam: PRESENT: clear to auscultation josh, symmetrical, unlabored, ot her - Supplemental oxygen via nasal cannula. ABSENT: rales, rhonchi, wheezes Cardiovascular exam: PRESENT: RRR. ABSENT: diastolic murmur, rubs, systolic murmur Pulses: PRESENT: normal dorsalis pedis pul Vascular exam: PRESENT: normal capillary refill GI/Abdominal exam: PRESENT: normal bowel sounds, soft. ABSENT: distended, guarding, mass, organolmegaly, rebound, tenderness Rectal exam: PRESENT: deferred Gentrourinary exam: PRESENT: indwelling catheter Extremities exam: PRESENT: full ROM. ABSENT: calf tenderness, clubbing, pedal edema Neurological exam: PRESENT: alert, awake, oriented to person, oriented to place, oriented to situation, CN II-XII grossly intact. ABSENT: motor sensory deficit Psychiatric exam: PRESENT: appropriate affect, normal mood. ABSENT: homicidal ideation, suicidal ideation Skin exam: PRESENT: dry, intact, warm. ABSENT: cyanosis, rash Results Laboratory Results: 07/29/19 06:34 07/29/19 06:34 07/28/19 07/28/19 07/28/19 18:34 18:34 18:34 WBC 9.7 D RBC 3.53 L Hgb 11.5 L Hct 34.4 L MCV 98 H MCH 32.7 MCHC 33.5 RDW 16.8 H Plt Count 155 Seg Neutrophils % 88.0 H Carbonic Acid HCO3/H2CO3 Ratio ABG pH ABG pCO2 ABG pO2 ABG HCO3 ABG O2 Saturation ABG Base Excess FiO2 Sodium 139.6 Potassium 4.3 Chloride 104 Carbon Dioxide 28 Anion Gap 8 BUN 30 H Creatinine 0.94 Est GFR ( Amer) > 60 Glucose 75 Calcium 9.0 Total Bilirubin 2.3 H AST 28 Alkaline Phosphatase 155 H Ammonia 89.9 H Total Protein 7.2 Albumin 3.1 L 07/28/19 07/28/19 07/29/19 18:40 20:18 06:34 WBC 14.0 H RBC 3.06 L Hgb 9.9 L Hct 29.4 L MCV 96 MCH 32.4 MCHC 33.6 RDW 16.4 H Plt Count 90 L Seg Neutrophils % Carbonic Acid 1.34 1.13 HCO3/H2CO3 Ratio 18:1 22:1 ABG pH 7.38 7.46 H ABG pCO2 44.5 37.6 ABG pO2 57.0 L 70.7 L ABG HCO3 25.4 H 25.8 H ABG O2 Saturation 88.9 L 95.0 ABG Base Excess 0 2.0 FiO2 100% 55% Sodium Potassium Chloride Carbon Dioxide Anion Gap BUN Creatinine Est GFR ( Amer) Glucose Calcium Total Bilirubin AST Alkaline Phosphatase Ammonia Total Protein Albumin 07/29/19 07/29/19 06:34 06:34 WBC RBC Hgb Hct MCV MCH MCHC RDW Plt Count Seg Neutrophils % Carbonic Acid HCO3/H2CO3 Ratio ABG pH ABG pCO2 ABG pO2 ABG HCO3 ABG O2 Saturation ABG Base Excess FiO2 Sodium 138.4 Potassium 4.3 Chloride 105 Carbon Dioxide 26 Anion Gap 7 BUN 36 H Creatinine 1.08 Est GFR ( Amer) > 60 Glucose 80 Calcium 8.6 Total Bilirubin AST Alkaline Phosphatase Ammonia 12.4 Total Protein Albumin 07/28/19 18:34 Troponin I < 0.012 Impressions: Chest X-Ray 07/28/19 17:58 IMPRESSION: Slight increase in the right-sided airspace disease as described. No other interval change. Assessment and Plan - Diagnosis (1) Hepatic encephalopathy Is this a current diagnosis for this admission?: Yes Plan: Improved; now oriented to self, place, and situation. Hyperammonemia has resolved. Have resumed her home medication regiment of rifaximin, sildenafil, spironolactone, furosemide, and lactulose. 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 Management as above. Patient declines Palliative care consultation at this time. political theory professor consulted. (4) Portal hypertension Is this a current diagnosis for this admission?: Yes Plan: We will continue her home dose spironolactone and furosemide. Consider beta nahid if blood pressure allows. (5) 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 hypertension Is this a current diagnosis for this admission?: Yes Plan: Not acutely exacerbated, will continue her home dose sildenafil (6) Acute respiratory failure with hypoxia Is this a current diagnosis for this admission?: Yes Plan: Unclear etiology; likely pulmonary edema as her symptoms improved rapidly following lasix and BiPAP. CXR does show worsening right side consolidation. Discussed with today; reports possible aspiration event at home prior to admission (vomited the night prior to admission). He confirms that she has had thoracentesis in the past w/ Dr. Harris having previously recommended a Pleurex drain. Not interested in Pleurx at this time but agreeable to thoracentesis if indicated. We will repeat chest x-ray to see if her lung grimm have improved following diuresis. Continue supplemental oxygen as needed to maintain saturations greater than 89%. Utilizes 2 L/min at home. Continue home dose spironolactone and furosemide. BiPAP nightly and PRN. (7) Hypoglycemia Is this a current diagnosis for this admission?: Yes Plan: Frequent episodes of nighttime hypoglycemia at home. Have improved since addition of Boost w/ bedtime medications. Patient has been NPO since admission; has not required SSI. Will advance diet today; continue to monitor insulin requirements closely. Patient will likely benefit from dose reduction of her Tresiba. (8) Diabetes mellitus Qualifiers: Diabetes mellitus type: type 2 Diabetes mellitus intermediate insulin use: with dedicated intermodal truck driver use Diabetes mellitus complication status: with hyperglycemia Qualified Code(s): E11.65 - Type 2 diabetes mellitus with hyperglycemia; Z79.4 - prison (current) use of insulin Is this a current diagnosis for this admission?: Yes Plan: A1c (05/06/2019) 5.5% Holding oral medications while admitted. Accu-Cheks before meals and at bedtime with Humalog for sliding scale coverage. Hypoglycemia protocol in place. Registered dietitian and product safety associate consulted. - Plan Summary Summary: Long discussion had with patient's today; all questions answered. - Time Time Spent with patient: 35 or more minutes Medications reviewed and adjusted accordingly: Yes
[2019-07-29] MEDS ORDERED: HYDROCORTISONE 10 MG TABLET PO ONE (15:30)
--- NOTE | 2019-07-29 16:31 | RADIOLOGY REPORT (SQ) ---
EXAM DESCRIPTION: CHEST SINGLE VIEW IMAGES COMPLETED DATE/TIME: 07/29/2019 3:42 pm REASON FOR STUDY: hypoxia, recurrent pleural effusion COMPARISON: 07/28/2019. EXAM PARAMETERS: NUMBER OF VIEWS: One view. TECHNIQUE: Single frontal radiographic view of the chest acquired. RADIATION DOSE: NA LIMITATIONS: None. FINDINGS: LUNGS AND PLEURA: Bilateral airspace disease and bilateral pleural effusions, right greate r than left, unchanged. MEDIASTINUM AND HILAR STRUCTURES: No masses. Contour normal. HEART AND VASCULAR STRUCTURES: Cardiomegaly unchanged. BONES: No acute findings. HARDWARE: None in the chest. OTHER: No other significant finding. IMPRESSION: NO CHANGE IN APPEARANCE OF THE CHEST. CARDIOMEGALY WITH BILATERAL PLEURAL EFFUSIONS AND BILATERAL AIRSPACE DISEASE, RIGHT GREATER THAN LEFT. TECHNICAL DOCUMENTATION: JOB ID: [id number] 2010 [employer]- All Rights Reserved Reading location - IP/workstation name: [email or web address]
--- NOTE | 2019-07-29 19:36 | EKG REPORT ---
SEVERITY:- OTHERWISE NORMAL ECG - SINUS RHYTHM LOW VOLTAGE IN FRONTAL LEADS : Confirmed by: Kurt Dubois 29-Jul-2019 19:35:29
[2019-07-30] MEDS: LACTULOSE SYRUP 20 GM/30 ML UDCUP PR SCH (05:49)
[2019-07-30] MEDS: LEVOTHYROXINE SODIUM 0.15 MG TABLET PO SCH (05:49)
[2019-07-30 06:53] LABS: HEMOGLOBIN 9.5 g/dL (12.0-15.5); MEAN CORPUSCULAR HEMOGLOBIN 32.8 pg (27.0-33.4); MEAN CORPUSCULAR VOLUME 97 fl (80-97); PLATELET COUNT 102 10^3/uL (150-450); RED CELL DISTRIBUTION WIDTH 16.9 % (11.5-14.0)
[2019-07-30 07:22] LABS: ANION GAP 8 (5-19); BLOOD UREA NITROGEN 38 mg/dL (7-20); CALCIUM 8.5 mg/dL (8.4-10.2); CARBON DIOXIDE 25 mmol/L (22-30); CHLORIDE 103 mmol/L (98-107); GLUCOSE 104 mg/dL (75-110); POTASSIUM 3.8 mmol/L (3.6-5.0)
[2019-07-30] MEDS ORDERED: POTASSI CL 20 MEQ/D5-1/2NS 1L 1,000 ML IV PRN (08:16)
[2019-07-30] MEDS: INSULIN LISPRO 100 UNIT/ML 3 ML VIAL SUBCUT SCH ×4 (08:16→22:20)
[2019-07-30] MEDS: SPIRONOLACTONE 25 MG TABLET PO SCH ×2 (08:18→08:30)
[2019-07-30] MEDS: FUROSEMIDE 40 MG TABLET PO SCH ×2 (08:18→08:30)
[2019-07-30] MEDS: FERROUS SULFATE 325 MG TABLET PO SCH (08:30)
[2019-07-30] MEDS: MEGESTROL ACETATE SUSP 400 MG/10 ML UDCUP PO SCH (09:44)
[2019-07-30] MEDS: LACTULOSE SYRUP 20 GM/30 ML UDCUP PO SCH ×4 (09:44→21:49)
[2019-07-30] MEDS: URSODIOL 300 MG CAPSULE PO SCH ×2 (09:45→21:49)
[2019-07-30] MEDS: PANTOPRAZOLE SODIUM 40 MG VIAL IV SCH ×2 (09:45→21:49)
[2019-07-30] MEDS: MULTIVITAMIN TABLET PO SCH (09:46)
[2019-07-30] MEDS: MIDODRINE HCL 5 MG TABLET PO SCH ×3 (09:46→17:44)
[2019-07-30] MEDS: RIFAXIMIN 550 MG TABLET PO SCH ×2 (09:46→17:47)
[2019-07-30] MEDS: CYANOCOBALAMIN (VITAMIN B-12) 1,000 MCG TABLET PO SCH (09:47)
[2019-07-30] MEDS: MAGNESIUM OXIDE 400 MG TABLET PO SCH (09:47)
[2019-07-30] MEDS: SILDENAFIL CITRATE 20 MG TABLET PO SCH ×3 (09:47→17:45)
[2019-07-30 10:07] LABS: INTERNATIONAL RATION (INR) 1.39; PROTHROMBIN TIME 17.2 SEC (11.4-15.4)
[2019-07-30 10:08] LABS: PARTIAL THROMBOPLASTIN TIME 40.2 SEC (23.5-35.8)
--- NOTE | 2019-07-30 12:13 | RADIOLOGY REPORT (SQ) ---
EXAM DESCRIPTION: CHEST SINGLE VIEW IMAGES COMPLETED DATE/TIME: 07/30/2019 11:57 am REASON FOR STUDY: S/P RT THORA COMPARISON: Same day radiograph EXAM PARAMETERS: NUMBER OF VIEWS: One view. TECHNIQUE: Single frontal radiographic view of the chest acquired. RADIATION DOSE: NA LIMITATIONS: None. FINDINGS: LUNGS AND PLEURA: No definitive pneumothorax. Improve aeration with lucency at the right lung base favored represent aerated lung. Dense consolidation of the middle lobe. Mild residual josh ateral effusions. MEDIASTINUM AND HILAR STRUCTURES: No masses. Contour normal. HEART AND VASCULAR STRUCTURES: Enlarged, stable. BONES: No acute findings. HARDWARE: Loop recorder overlies left chest. OTHER: No other significant finding. IMPRESSION: No definitive pneumothorax post thoracentesis. Lucency at the right lung base favored t o represent improved basilar aeration. Persistent dense medial lobe consolidation and mild bilateral effusions. Stable large cardiac silhou ette. TECHNICAL DOCUMENTATION: JOB ID: [id number] 2010 [employer]- All Rights Reserved Reading location - IP/workstation name: [email or web address]
--- NOTE | 2019-07-30 13:39 | RADIOLOGY REPORT (SQ) ---
EXAM DESCRIPTION: U/S THORACENTESIS WITH IMAGING IMAGES COMPLETED DATE/TIME: 07/30/2019 12:00 pm REASON FOR STUDY: rt pleural effusion COMPARISON: 04/15/2019 LIMITATIONS: None. PROCEDURE: Procedure, risks, benefit, and alternative explained to patient who then gave written con sent. The right chest wall was marked using ultrasound guidance. A time-out was called for correct marking verification. Chest prepped and draped using sterile technique. Local anesthesia achieved us ing 10 ml of 1% lidocaine injection. A 6fr Safe-T- Centesis set was introduced into the right pleura l space. Fluid was aspirated. The catheter was removed and the entry site was covered with sterile bandage. No immediate complications noted. Images acquired during the procedure were stored on PACS. FINDINGS: ENTRY SITE: Right posterior chest FLUID VOLUME: 900 cc FLUID ANALYSIS: Serosanguineous OTHER: Therapeutic only IMPRESSION: SUCCESSFUL THORACENTESIS USING ULTRASOUND GUIDANCE. COMMENT: Patient medication list reviewed: Yes- Quality ID# [id number]:Eligible professional attests to doc umenting in the medical record they obtained, updated, or reviewed the patient's current medications. TECHNICAL DOCUMENTATION: JOB ID: [id number] 2010 [employer]- All Rights Reserved Reading location - IP/workstation name: [email or web address]
--- NOTE | 2019-07-30 13:39 | PDOC PROGRESS REPORT ---
Subjective Progress Note for:: 07/30/19 Subjective:: The patient is a 69-year-old female with a past medical history of end-stage hepatic cirrhosis, CHF, hypertension, COPD, DM, hypothyroidism who was admitted 07/28/2019 with hepatic encephalitis. Patient was seen on afternoon rounds following return from thoracentesis. She was found resting in bed, comfortably, on supplemental oxygen at 3 L/min; uses 2 L/min at baseline; reports her breathing is easier. She complains of fatigue and drifts to sleep mid-conversation but wakes easily and apologizes. Overall, she is feeling well and hopeful to go home soon. She denies fever, headache, dizziness, chest pain, palpitations, dyspnea, orthopnea, abdominal pain, nausea vomiting diarrhea. Reports several bowel movements daily. No concerns per nursing. Reason For Visit: HEPATIC ENCEPHALOPATHY Physical Exam Vital Signs: Temp Pulse Resp BP Pulse Ox 98.1 F 88 16 113/44 L 90 L 07/30/19 07:47 07/30/19 07:47 07/30/19 07:47 07/30/19 07:47 07/30/19 10:37 Intake & Output 07/29/19 07/30/19 07/31/19 06:59 06:59 06:59 Intake Total 700 2639 911 Output Total 450 950 Balance 250 1689 911 Weight 50.9 kg 51.9 kg General appearance: PRESENT: no acute distress, cooperative, thin, well- developed Head exam: PRESENT: atraumatic, normocephalic Eye exam: PRESENT: conjunctiva pink, EOMI, PERRLA. ABSENT: scleral icterus Mouth exam: PRESENT: moist, tongue midline Teeth exam: PRESENT: poor dentation Respiratory exam: PRESENT: decreased breath sounds - bibasilar R>L; improved following thoracentesis, symmetrical, unlabored. ABSENT: rales, rhonchi, wheezes Cardiovascular exam: PRESENT: RRR. ABSENT: diastolic murmur, rubs, systolic murmur Vascular exam: PRESENT: normal capillary refill Gentrourinary exam: PRESENT: indwelling catheter Extremities exam: PRESENT: full ROM. ABSENT: calf tenderness, clubbing, pedal edema Neurological exam: PRESENT: alert, awake, oriented to person, oriented to place, oriented to time, oriented to situation, CN II-XII grossly intact, other - forgetful, fatigued. ABSENT: motor sensory deficit Psychiatric exam: PRESENT: appropriate affect, normal mood. ABSENT: homicidal ideation, suicidal ideation Skin exam: PRESENT: dry, intact, warm. ABSENT: cyanosis, rash Results Laboratory Results: 07/30/19 06:40 07/30/19 06:40 07/30/19 07/30/19 07/30/19 06:40 06:40 06:40 WBC 10.0 RBC 2.90 L Hgb 9.5 L Hct 28.0 L MCV 97 MCH 32.8 MCHC 34.0 RDW 16.9 H Plt Count 102 L Sodium 135.7 L Potassium 3.8 Chloride 103 Carbon Dioxide 25 Anion Gap 8 BUN 38 H Creatinine 1.09 Est GFR ( Amer) > 60 Glucose 104 Calcium 8.5 Ammonia 20.6 07/28/19 18:34 Troponin I < 0.012 Impressions: Chest X-Ray 07/30/19 11:45 IMPRESSION: No definitive pneumothorax post thoracentesis. Lucency at the right lung base favored to represent improved basilar aeration. Persistent dense medial lobe consolidation and mild bilateral effusions. Stable large cardiac silhouette. Assessment and Plan - Diagnosis (1) Hepatic encephalopathy Is this a current diagnosis for this admission?: Yes Plan: Improved; A&Ox4 with intermittent fatigue/forgetfulness Hyperammonemia has resolved. Have resumed her home medication regiment of rifaximin, sildenafil, and lactulose. 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 Management as above. Patient declines Palliative care consultation at this time. shell plater consulted. (4) Portal hypertension Is this a current diagnosis for this admission?: Yes Plan: We will continue her home dose spironolactone and furosemide. Consider beta nahid if blood pressure allows. (5) 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 hypertension Is this a current diagnosis for this admission?: Yes Plan: Not acutely exacerbated, will continue her home dose sildenafil (6) Acute respiratory failure with hypoxia Is this a current diagnosis for this admission?: Yes Plan: Improving; likely secondary to pulmonary edema and pleural effusion as her symptoms improved rapidly following lasix and BiPAP with further improvement following thoracentesis. CXR does show worsening right side consolidation. Discussed with today; reports possible aspiration event at home prior to admission (vomited the night prior to admission). He confirms that she has had thoracentesis in the past w/ Dr. Harris having previously recommended a Pleurex drain. Not interested in Pleurx at this time but agreeable to thoracentesis if indicated. Thoracentesis today; port not available to identify amount removed. However, follow-up chest x-ray shows improved aeration with a now clear right middle lobe consolidation. Continue supplemental oxygen as needed to maintain saturations greater than 89%. Utilizes 2 L/min at home. Adjustments to spironolactone and furosemide. Will start on p.o. Augmentin for potential aspiration pneumonia; hesitant to start on IV antibiotics as the patient's leukocytosis and fever have all trended down without antibiotic therapy. X-ray imaging may also represent a chemical pneumonitis; will hold on steroid therapy at this time if she continues to improve without intervention. BiPAP nightly and PRN. (7) Hypoglycemia Is this a current diagnosis for this admission?: Yes Plan: Frequent episodes of nighttime hypoglycemia at home. Have improved since addition of Boost w/ bedtime medications. Patient has been NPO since admission; has not required SSI. Have advanced diet; continue to monitor insulin requirements closely. Patient will likely benefit from dose reduction of her Tresiba. (8) Diabetes mellitus Qualifiers: Diabetes mellitus type: type 2 Diabetes mellitus ferry terminal supervisor insulin use: with ferry terminal supervisor use Diabetes mellitus complication status: with hyperglycemia Qualified Code(s): E11.65 - Type 2 diabetes mellitus with hyperglycemia; Z79.4 - rodent exterminator (current) use of insulin Is this a current diagnosis for this admission?: Yes Plan: A1c (05/06/2019) 5.5% Holding oral medications while admitted. Accu-Cheks before meals and at bedtime with Humalog for sliding scale coverage. Hypoglycemia protocol in place. Registered dietitian and life educator consulted. - Time Time Spent with patient: 35 or more minutes Medications reviewed and adjusted accordingly: Yes Anticipated discharge: Home with Homehealth Within: within 48 hours
[2019-07-30] MEDS: AMOXICILLIN TR/POT CLAVULANATE 500-125 MG TAB PO SCH ×2 (14:16→21:49)
--- NOTE | 2019-07-30 15:06 | RADIOLOGY REPORT (SQ) ---
EXAM DESCRIPTION: CHEST SINGLE VIEW IMAGES COMPLETED DATE/TIME: 07/30/2019 2:49 pm REASON FOR STUDY: 2 HOURS S/P RT THORA COMPARISON: Same day radiograph EXAM PARAMETERS: NUMBER OF VIEWS: One view. TECHNIQUE: Single frontal radiographic view of the chest acquired. RADIATION DOSE: NA LIMITATIONS: None. FINDINGS: LUNGS AND PLEURA: There is a the right apical pneumothorax measuring approximately 19 mm f rom the lung apex to the bottom of the 1st ribs. Lucency at the right lung base not significantly ch anged from prior and possibly representing a basilar component versus aerated lower lobe. Stable sma ll bilateral pleural effusions and basilar consolidation. Stable bilateral interstitial opacities. MEDIASTINUM AND HILAR STRUCTURES: Stable. HEART AND VASCULAR STRUCTURES: Enlarged, stable. BONES: No acute findings. HARDWARE: Loop recorder overlies left chest. OTHER: No other significant finding. IMPRESSION: Small right apical pneumothorax, new from prior. Persistent basilar lucency may represe nt basilar pneumothorax component as well. No evidence of tension. Stable enlarged cardiac silhouette, small bilateral effusions and bibasilar consolidation. TECHNICAL DOCUMENTATION: JOB ID: [id number] 2010 [employer]- All Rights Reserved Reading location - IP/workstation name: [email or web address]
[2019-07-30] MEDS ORDERED: FENTANYL CITRATE INJ/PF 100 MCG/2 ML AMPUL ONE (16:28)
[2019-07-30] MEDS: INSULIN GLARGINE,HUM.REC.ANLOG 1,000 UNIT/10 ML VIAL SUBCUT SCH (22:20)
[2019-07-31 05:44] LABS: HEMATOCRIT 29.3 % (36.0-47.0); HEMOGLOBIN 10.1 g/dL (12.0-15.5); MEAN CORPUSCULAR HEMOGLOBIN 32.9 pg (27.0-33.4); MEAN CORPUSCULAR HGB CONC 34.3 g/dL (32.0-36.0); MEAN CORPUSCULAR VOLUME 96 fl (80-97); PLATELET COUNT 115 10^3/uL (150-450); RED BLOOD COUNT 3.06 10^6/uL (3.72-5.28); RED CELL DISTRIBUTION WIDTH 16.5 % (11.5-14.0); WHITE BLOOD COUNT 8.2 10^3/uL (4.0-10.5)
[2019-07-31 06:04] LABS: ANION GAP 7 (5-19); BLOOD UREA NITROGEN 41 mg/dL (7-20); CALCIUM 8.2 mg/dL (8.4-10.2); CARBON DIOXIDE 25 mmol/L (22-30); CHLORIDE 100 mmol/L (98-107); GLUCOSE 204 mg/dL (75-110); POTASSIUM 3.9 mmol/L (3.6-5.0)
[2019-07-31] MEDS: LEVOTHYROXINE SODIUM 0.15 MG TABLET PO SCH (06:09)
[2019-07-31] MEDS: AMOXICILLIN TR/POT CLAVULANATE 500-125 MG TAB PO SCH ×3 (06:10→21:45)
--- NOTE | 2019-07-31 10:26 | ADVANCED CARE ---
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 Resuscitation Status: Full Code Discussion: Discussed the patient's chronic medical conditions, admitting diagnoses, clinical progress, and new development of pneumothorax post palliative thoracentesis necessitating chest tube placement. We had previously discussed the option for a Pleurx drain. He had admitted that Dr. Harris had once recommended this, however, a [facility] data integration developer had advised that this was an intervention of last resort. We discussed that I agree with both providers and feels that the patient's repetitive admissions for hepatic encephalitis with acute on chronic respiratory failure related to pleural effusions demonstrated that she was reaching the limits of what medicine had to offer. We discussed that the chest tube will be watched over the next 48 hours; should her output decrease significantly, we could consider removing the tube. However, I expected that she would continue to have high output and require conversion to Pleurx catheter for discharge to home. The patient's was somewhat tearful, but confirmed his understanding of the need for current tube placement and the patient's progression toward end of life. Care Planning Goals: Consideration of Palliative Care referral w/ [facility] depending upon how patient responds to chest tube/resolution of pneumothorax. Document(s) Completed: None Time Spent: 30 min
--- NOTE | 2019-07-31 10:32 | RADIOLOGY REPORT (SQ) ---
EXAM DESCRIPTION: CHEST SINGLE VIEW IMAGES COMPLETED DATE/TIME: 07/31/2019 8:40 am REASON FOR STUDY: 24 HR POST CHEST TUBE INS COMPARISON: 07/30/2019 NUMBER OF VIEWS: One view. TECHNIQUE: Single frontal radiographic image of the chest acquired. LIMITATIONS: None. FINDINGS: LUNGS AND PLEURA: Small effusions bilaterally. Right apical pneumothorax not significantl y changed. MEDIASTINUM AND HEART: Stable heart size and mediastinal structures. SUPPORT DEVICES: Placement of right pleural drainage catheter inferior lung. BONY STRUCTURES: No acute findings. HARDWARE: None. OTHER: No other significant finding. IMPRESSION: Stable chest status post chest tube placement. Residual right apical pneumothorax. Reading location - IP/workstation name: [email or web address]
[2019-07-31] MEDS: INSULIN LISPRO 100 UNIT/ML 3 ML VIAL SUBCUT SCH ×4 (10:41→21:53)
[2019-07-31] MEDS: MAGNESIUM OXIDE 400 MG TABLET PO SCH (10:46)
[2019-07-31] MEDS: PANTOPRAZOLE SODIUM 40 MG VIAL IV SCH (10:46)
[2019-07-31] MEDS: MIDODRINE HCL 5 MG TABLET PO SCH ×3 (10:46→17:27)
[2019-07-31] MEDS: SPIRONOLACTONE 25 MG TABLET PO SCH (10:46)
[2019-07-31] MEDS: FUROSEMIDE 40 MG TABLET PO SCH (10:47)
[2019-07-31] MEDS: MEGESTROL ACETATE SUSP 400 MG/10 ML UDCUP PO SCH (10:47)
[2019-07-31] MEDS: CYANOCOBALAMIN (VITAMIN B-12) 1,000 MCG TABLET PO SCH (10:47)
[2019-07-31] MEDS: LACTULOSE SYRUP 20 GM/30 ML UDCUP PO SCH ×4 (10:47→21:45)
[2019-07-31] MEDS: RIFAXIMIN 550 MG TABLET PO SCH ×2 (10:47→19:39)
[2019-07-31] MEDS: MULTIVITAMIN TABLET PO SCH (10:47)
[2019-07-31] MEDS: FERROUS SULFATE 325 MG TABLET PO SCH (10:47)
[2019-07-31] MEDS: SILDENAFIL CITRATE 20 MG TABLET PO SCH ×3 (10:48→17:28)
[2019-07-31] MEDS: URSODIOL 300 MG CAPSULE PO SCH ×2 (10:48→21:46)
[2019-07-31] MEDS: INSULIN GLARGINE,HUM.REC.ANLOG 1,000 UNIT/10 ML VIAL SUBCUT SCH ×2 (11:09→21:49)
--- NOTE | 2019-07-31 17:13 | PDOC PROGRESS REPORT ---
Subjective Progress Note for:: 07/31/19 Subjective:: The patient is a 69-year-old female with a past medical history of end-stage hepatic cirrhosis, CHF, hypertension, COPD, DM, hypothyroidism who was admitted 07/28/2019 with hepatic encephalitis. Patient was seen on morning rounds. She was found resting in bed, comfortably, on supplemental oxygen at 3 L/min; uses 2 L/min at baseline; reports her breathing is easier this morning. She appears more comfortable as compared to yesterday, however is quite fatigued and quickly falls back to sleep after the end of our conversation. She denies fever, headache, dizziness, chest pain, palpitations, dyspnea, orthopnea, abdominal pain, nausea vomiting diarrhea. She has no questions or concerns at this time. No concerns per nursing. Reason For Visit: HEPATIC ENCEPHALOPATHY Physical Exam Vital Signs: Temp Pulse Resp BP Pulse Ox 97.3 F 98 16 112/40 L 91 L 07/31/19 12:50 07/31/19 14:00 07/31/19 12:50 07/31/19 12:50 07/31/19 12:50 Intake & Output 07/30/19 07/31/19 08/01/19 06:59 06:59 06:59 Intake Total 2639 3570 300 Output Total 950 1475 120 Balance 1689 2095 180 Weight 51.9 kg 53.2 kg General appearance: PRESENT: no acute distress, cooperative, thin, well- developed, well-nourished Head exam: PRESENT: atraumatic, normocephalic Eye exam: PRESENT: conjunctiva pink, EOMI, PERRLA. ABSENT: scleral icterus Mouth exam: PRESENT: moist, tongue midline Teeth exam: PRESENT: poor dentation Respiratory exam: PRESENT: decreased breath sounds - Easler, rhonchi - Right lower lobe, symmetrical, unlabored, other - Supplemental oxygen by nasal cannula. Chest well to gravity drainage; 250 mL's serosanguineous output over the last 12 hours.. ABSENT: rales, wheezes Cardiovascular exam: PRESENT: RRR. ABSENT: diastolic murmur, rubs, systolic murmur Vascular exam: PRESENT: normal capillary refill Gentrourinary exam: PRESENT: indwelling catheter Extremities exam: PRESENT: full ROM. ABSENT: calf tenderness, clubbing, pedal edema Neurological exam: PRESENT: alert, awake, oriented to person, oriented to place, oriented to time, oriented to situation - Intermittent forgetfulness/confusion, CN II-XII grossly intact. ABSENT: motor sensory deficit Psychiatric exam: PRESENT: appropriate affect, normal mood. ABSENT: homicidal ideation, suicidal ideation Skin exam: PRESENT: dry, intact, warm. ABSENT: cyanosis, rash Results Laboratory Results: 07/31/19 04:30 07/31/19 04:30 07/31/19 07/31/19 07/31/19 04:30 04:30 04:30 WBC 8.2 RBC 3.06 L Hgb 10.1 L Hct 29.3 L MCV 96 MCH 32.9 MCHC 34.3 RDW 16.5 H Plt Count 115 L Sodium 131.8 L Potassium 3.9 Chloride 100 Carbon Dioxide 25 Anion Gap 7 BUN 41 H Creatinine 1.28 H Est GFR ( Amer) 50 L Glucose 204 H Calcium 8.2 L Ammonia 40.0 H 07/28/19 18:34 Troponin I < 0.012 Impressions: Thoracentesis Ultrasound 07/30/19 00:00 IMPRESSION: SUCCESSFUL THORACENTESIS USING ULTRASOUND GUIDANCE. Chest X-Ray 07/31/19 08:00 IMPRESSION: Stable chest status post chest tube placement. Residual right apical pneumothorax. Assessment and Plan - Diagnosis (1) Acute and chronic respiratory failure with hypoxia Is this a current diagnosis for this admission?: Yes Plan: Multifactorial secondary to pleural effusion, pneumothorax, right middle lobe consolidation, pulmonary hypertension, and heart failure. Evaluation management as below. (2) Pneumothorax Qualifiers: Pneumothorax type: postprocedural Qualified Code(s): J95.811 - Postprocedural pneumothorax Is this a current diagnosis for this admission?: Yes Plan: Right side pneumothorax following palliative thoracentesis. Chest tube to water seal/gravity drainage with continued. Chest tube can easily be converted to Pleurx drain if she continues to have high output. I discussed this with the patient's by phone today. See separate ACP note. (3) Hepatic encephalopathy Is this a current diagnosis for this admission?: Yes Plan: Improved; A&Ox4 with intermittent fatigue/forgetfulness Hyperammonemia has resolved. Have resumed her home medication regiment of rifaximin, sildenafil, and lactulose. 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 Management as above. Patient declines Palliative care consultation at this time. senior product development engineer consulted. (6) Portal hypertension Is this a current diagnosis for this admission?: Yes Plan: We will continue her home dose spironolactone and furosemide. Consider beta nahid if blood pressure allows. 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 CXR does show worsening right side consolidation. Discussed with today; reports possible aspiration event at home prior to admission (vomited the night prior to admission). He confirms that she has had thoracentesis in the past w/ Dr. Harris having previously recommended a Pleurex drain. Not interested in Pleurx at this time but agreeable to thoracentesis if indicated. Thoracentesis yesterday. Follow-up chest x-ray shows improved aeration with a now clear right middle lobe consolidation. Unfortunately, developed apical pneumothorax; now with chest tube to waterseal/gravity drainage with serosanguineous output. Continue supplemental oxygen as needed to maintain saturations greater than 89%. Utilizes 2 L/min at home. Continue continue spironolactone and furosemide. Continue p.o. Augmentin for potential aspiration pneumonia; hesitant to start on IV antibiotics as the patient's leukocytosis and fever have all trended down without antibiotic therapy. X-ray imaging may also represent a chemical pneumonitis; will hold on steroid therapy at this time if she continues to improve without intervention. BiPAP nightly and PRN. (9) Diabetes mellitus Qualifiers: Diabetes mellitus type: type 2 Diabetes mellitus longterm insulin use: with longterm use Diabetes mellitus complication status: with hyperglycemia Qualified Code(s): E11.65 - Type 2 diabetes mellitus with hyperglycemia; Z79.4 - intermediate designer (current) use of insulin Is this a current diagnosis for this admission?: Yes Plan: A1c (05/06/2019) 5.5% Holding oral medications while admitted. Start Lantus 6 units twice daily. Accu-Cheks before meals and at bedtime with Humalog for sliding scale coverage. Hypoglycemia protocol in place. Registered dietitian and family life educator consulted. (10) Hypoglycemia Is this a current diagnosis for this admission?: Yes Plan: Frequent episodes of nighttime hypoglycemia at home. Have improved since addition of Boost w/ bedtime medications. Patient has been NPO since admission; has not required SSI. Have advanced diet; continue to monitor insulin requirements closely. Patient will likely benefit from dose reduction of her Tresiba. - Time Time Spent with patient: 35 or more minutes Medications reviewed and adjusted accordingly: Yes Anticipated discharge: Home with Homehealth Within: within 72 hours
[2019-08-01] MEDS: AMOXICILLIN TR/POT CLAVULANATE 500-125 MG TAB PO SCH ×3 (05:32→21:41)
[2019-08-01] MEDS: LEVOTHYROXINE SODIUM 0.15 MG TABLET PO SCH (05:32)
[2019-08-01 05:40] LABS: BLOOD UREA NITROGEN 44 mg/dL (7-20); CALCIUM 8.4 mg/dL (8.4-10.2); GLUCOSE 249 mg/dL (75-110); POTASSIUM 4.1 mmol/L (3.6-5.0)
[2019-08-01 06:04] LABS: ANION GAP 7 (5-19); CARBON DIOXIDE 23 mmol/L (22-30); CHLORIDE 102 mmol/L (98-107)
[2019-08-01] MEDS: FUROSEMIDE 40 MG TABLET PO SCH (08:12)
[2019-08-01] MEDS: FERROUS SULFATE 325 MG TABLET PO SCH (08:12)
[2019-08-01] MEDS: INSULIN LISPRO 100 UNIT/ML 3 ML VIAL SUBCUT SCH ×4 (08:12→21:41)
[2019-08-01] MEDS: SPIRONOLACTONE 25 MG TABLET PO SCH (08:12)
[2019-08-01] MEDS: CYANOCOBALAMIN (VITAMIN B-12) 1,000 MCG TABLET PO SCH (09:44)
[2019-08-01] MEDS: LACTULOSE SYRUP 20 GM/30 ML UDCUP PO SCH ×4 (09:44→21:41)
[2019-08-01] MEDS: URSODIOL 300 MG CAPSULE PO SCH ×2 (09:44→21:42)
[2019-08-01] MEDS: MAGNESIUM OXIDE 400 MG TABLET PO SCH (09:44)
[2019-08-01] MEDS: MEGESTROL ACETATE SUSP 400 MG/10 ML UDCUP PO SCH (09:44)
[2019-08-01] MEDS: MIDODRINE HCL 5 MG TABLET PO SCH ×3 (09:44→17:31)
[2019-08-01] MEDS: RIFAXIMIN 550 MG TABLET PO SCH ×2 (09:44→17:31)
[2019-08-01] MEDS: SILDENAFIL CITRATE 20 MG TABLET PO SCH ×3 (09:44→17:31)
[2019-08-01] MEDS: MULTIVITAMIN TABLET PO SCH (09:44)
[2019-08-01] MEDS: INSULIN GLARGINE,HUM.REC.ANLOG 1,000 UNIT/10 ML VIAL SUBCUT SCH ×2 (09:56→21:41)
--- NOTE | 2019-08-01 15:07 | PDOC PROGRESS REPORT ---
Subjective Progress Note for:: 08/01/19 Subjective:: The patient is a 69-year-old female with a past medical history of end-stage hepatic cirrhosis, CHF, hypertension, COPD, DM, hypothyroidism who was admitted 07/28/2019 with hepatic encephalitis. Patient was seen on morning rounds. She was found resting in bed, comfortably, on supplemental oxygen at 3.5 L/min; uses 2 L/min at baseline; reports her breathing is fine this morning. She denies fever, headache, dizziness, chest pain, palpitations, dyspnea, orthopnea, abdominal pain, nausea vomiting diarrhea. She has no questions or concerns at this time. No concerns per nursing. Reason For Visit: HEPATIC ENCEPHALOPATHY Physical Exam Vital Signs: Temp Pulse Resp BP Pulse Ox 97.6 F 86 20 108/38 L 97 08/01/19 11:20 08/01/19 14:00 08/01/19 11:20 08/01/19 11:20 08/01/19 11:20 Intake & Output 07/31/19 08/01/19 08/02/19 06:59 06:59 06:59 Intake Total 3570 1040 240 Output Total 1475 1370 225 Balance 2095 -330 15 Weight 53.2 kg 54 kg General appearance: PRESENT: no acute distress, cooperative, thin, well- developed, well-nourished Head exam: PRESENT: atraumatic, normocephalic Eye exam: PRESENT: conjunctiva pink, EOMI, PERRLA. ABSENT: scleral icterus Mouth exam: PRESENT: moist, tongue midline Teeth exam: PRESENT: poor dentation Respiratory exam: PRESENT: decreased breath sounds - bibasilar, symmetrical, unlabored, other - Supplemental oxygen by nasal cannula. Chest well to gravity drainage; 250 mL's serosanguineous output over the last 12 hours. ABSENT: rales, rhonchi, wheezes Cardiovascular exam: PRESENT: RRR. ABSENT: diastolic murmur, rubs, systolic murmur Pulses: PRESENT: normal dorsalis pedis pul Vascular exam: PRESENT: normal capillary refill GI/Abdominal exam: PRESENT: normal bowel sounds, soft. ABSENT: distended, guarding, mass, organolmegaly, rebound, tenderness Rectal exam: PRESENT: deferred Gentrourinary exam: PRESENT: indwelling catheter Extremities exam: PRESENT: full ROM. ABSENT: calf tenderness, clubbing, pedal edema Neurological exam: PRESENT: alert, awake, oriented to person, oriented to place, oriented to time, oriented to situation, CN II-XII grossly intact, other - Intermittent forgetfulness/confusion. ABSENT: motor sensory deficit Psychiatric exam: PRESENT: appropriate affect, normal mood. ABSENT: homicidal ideation, suicidal ideation Skin exam: PRESENT: dry, intact, warm. ABSENT: cyanosis, rash Results Laboratory Results: 07/31/19 04:30 08/01/19 04:44 08/01/19 04:44 Sodium 132.0 L Potassium 4.1 Chloride 102 Carbon Dioxide 23 Anion Gap 7 BUN 44 H Creatinine 1.28 H Est GFR ( Amer) 50 L Glucose 249 H Calcium 8.4 07/28/19 18:34 Troponin I < 0.012 Impressions: Thoracentesis Ultrasound 07/30/19 00:00 IMPRESSION: SUCCESSFUL THORACENTESIS USING ULTRASOUND GUIDANCE. Chest X-Ray 07/31/19 08:00 IMPRESSION: Stable chest status post chest tube placement. Residual right apical pneumothorax. Assessment and Plan - Diagnosis (1) Acute and chronic respiratory failure with hypoxia Is this a current diagnosis for this admission?: Yes Plan: Multifactorial secondary to pleural effusion, pneumothorax, right middle lobe consolidation, pulmonary hypertension, and heart failure. Evaluation management as below. (2) Pneumothorax Qualifiers: Pneumothorax type: postprocedural Qualified Code(s): J95.811 - Postprocedural pneumothorax Is this a current diagnosis for this admission?: Yes Plan: Right side pneumothorax following palliative thoracentesis. Chest tube to water seal/gravity drainage with continued. Chest tube can easily be converted to Pleurx drain if she continues to have high output. Discussed with Dr. Moss today; high likelihood that the patient will continue to have high output. It is likely that the patient will develop dehydration and electrolyte derangements from continued losses. Recommends removal of chest tube. Will obtain CXR to verify resolution of pneumothorax. Nursing has clamped tube. Plan for removal this afternoon if CXR is appropriate. (3) Hepatic encephalopathy Is this a current diagnosis for this admission?: Yes Plan: Improved; A&Ox4 with intermittent fatigue/forgetfulness Hyperammonemia has resolved. Have resumed her home medication regiment of rifaximin, sildenafil, and lactulose. 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 Management as above. Patient declines Palliative care consultation at this time. securities compliance examiner consulted. (6) Portal hypertension Is this a current diagnosis for this admission?: Yes Plan: We will continue her home dose spironolactone and furosemide. Consider beta nahid if blood pressure allows. 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 CXR does show worsening right side consolidation. Discussed with today; reports possible aspiration event at home prior to admission (vomited the night prior to admission). He confirms that she has had thoracentesis in the past w/ Dr. Harris having previously recommended a Pleurex drain. Not interested in Pleurx at this time but agreeable to thoracentesis if indicated. Thoracentesis yesterday. Follow-up chest x-ray shows improved aeration with a now clear right middle lobe consolidation. Unfortunately, developed apical pneumothorax; now with chest tube to waterseal/gravity drainage with serosanguineous output. Continue supplemental oxygen as needed to maintain saturations greater than 89%. Utilizes 2 L/min at home. Continue continue spironolactone and furosemide. Continue p.o. Augmentin for potential aspiration pneumonia; hesitant to start on IV antibiotics as the patient's leukocytosis and fever have all trended down without antibiotic therapy. X-ray imaging may also represent a chemical pneumonitis; will hold on steroid therapy at this time if she continues to improve without intervention. BiPAP nightly and PRN. (9) Hypoglycemia Is this a current diagnosis for this admission?: Yes Plan: Frequent episodes of nighttime hypoglycemia at home. Have improved since addition of Boost w/ bedtime medications. Patient has been NPO since admission; has not required SSI. Have advanced diet; continue to monitor insulin requirements closely. Patient will likely benefit from dose reduction of her Tresiba. 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 Start Lantus 8 units twice daily. Accu-Cheks before meals and at bedtime with Humalog for sliding scale coverage. Hypoglycemia protocol in place. Registered dietitian and nurse educator consulted. - Time Time Spent with patient: 25-34 minutes Medications reviewed and adjusted accordingly: Yes Anticipated discharge: Home Within: within 24 hours
--- NOTE | 2019-08-01 15:25 | RADIOLOGY REPORT (SQ) ---
EXAM DESCRIPTION: CHEST SINGLE VIEW IMAGES COMPLETED DATE/TIME: 08/01/2019 3:10 pm REASON FOR STUDY: resolution of pneumothorax COMPARISON: AP view of the chest from 07/31/2019. EXAM PARAMETERS: NUMBER OF VIEWS: One view. TECHNIQUE: An AP view of the chest was obtained. RADIATION DOSE: NA LIMITATIONS: None. FINDINGS: LUNGS AND PLEURA: Unchanged size of the right apical pneumothorax and stable basilar predo minant pleural and parenchymal opacities that obscure the contours of the hemidiaphragms and blunt th e costophrenic sulci. MEDIASTINUM AND HILAR STRUCTURES: Stable mediastinal and hilar contours. HEART AND VASCULAR STRUCTURES: Stable enlarged cardiac silhouette. BONES: No acute findings. HARDWARE: Stable position of right basilar pigtail chest tube. OTHER: No other finding. IMPRESSION: Unchanged size of the right apical pneumothorax. TECHNICAL DOCUMENTATION: JOB ID: [id number] 2010 [employer]- All Rights Reserved Reading location - IP/workstation name: [email or web address]
[2019-08-02] MEDS: AMOXICILLIN TR/POT CLAVULANATE 500-125 MG TAB PO SCH ×3 (06:03→22:23)
[2019-08-02] MEDS: LEVOTHYROXINE SODIUM 0.15 MG TABLET PO SCH (06:03)
[2019-08-02 06:59] LABS: ANION GAP 8 (5-19); BLOOD UREA NITROGEN 41 mg/dL (7-20); CALCIUM 8.3 mg/dL (8.4-10.2); CARBON DIOXIDE 25 mmol/L (22-30); CHLORIDE 102 mmol/L (98-107); GLUCOSE 102 mg/dL (75-110)
[2019-08-02] MEDS ORDERED: FUROSEMIDE 40 MG TABLET PO SCH (08:00)
[2019-08-02] MEDS: INSULIN LISPRO 100 UNIT/ML 3 ML VIAL SUBCUT SCH ×4 (08:42→22:23)
[2019-08-02] MEDS: SPIRONOLACTONE 25 MG TABLET PO SCH (08:47)
[2019-08-02] MEDS: FUROSEMIDE 20 MG TABLET PO SCH (08:47)
[2019-08-02] MEDS: FERROUS SULFATE 325 MG TABLET PO SCH (08:47)
--- NOTE | 2019-08-02 10:33 | RADIOLOGY REPORT (SQ) ---
EXAM DESCRIPTION: CHEST SINGLE VIEW IMAGES COMPLETED DATE/TIME: 08/02/2019 8:33 am REASON FOR STUDY: pleural effusion COMPARISON: 08/01/2019 NUMBER OF VIEWS: One view. TECHNIQUE: Single frontal radiographic image of the chest acquired. LIMITATIONS: None. FINDINGS: LUNGS AND PLEURA: Bilateral pleural effusions and associated airspace disease not signific antly changed. No pneumothorax identified. MEDIASTINUM AND HILAR STRUCTURES: Stable heart size and mediastinal structures. HEART AND VASCULAR STRUCTURES: Stable appearance. SUPPORT DEVICES: Appropriate location without change. BONES: No acute findings. OTHER: No other significant finding. IMPRESSION: No significant change. No pneumothorax. TECHNICAL DOCUMENTATION: JOB ID: [id number] 2010 [employer]- All Rights Reserved Reading location - IP/workstation name: [email or web address]
[2019-08-02] MEDS: MULTIVITAMIN TABLET PO SCH (10:55)
[2019-08-02] MEDS: MIDODRINE HCL 5 MG TABLET PO SCH ×3 (10:56→17:22)
[2019-08-02] MEDS: URSODIOL 300 MG CAPSULE PO SCH ×2 (10:56→22:23)
[2019-08-02] MEDS: SILDENAFIL CITRATE 20 MG TABLET PO SCH ×3 (10:56→17:22)
[2019-08-02] MEDS: CYANOCOBALAMIN (VITAMIN B-12) 1,000 MCG TABLET PO SCH (10:56)
[2019-08-02] MEDS: MAGNESIUM OXIDE 400 MG TABLET PO SCH (10:56)
[2019-08-02] MEDS: LACTULOSE SYRUP 20 GM/30 ML UDCUP PO SCH ×4 (10:56→22:23)
[2019-08-02] MEDS: RIFAXIMIN 550 MG TABLET PO SCH ×2 (10:56→17:22)
[2019-08-02] MEDS: INSULIN GLARGINE,HUM.REC.ANLOG 1,000 UNIT/10 ML VIAL SUBCUT SCH ×2 (10:57→22:23)
[2019-08-02] MEDS: MEGESTROL ACETATE SUSP 400 MG/10 ML UDCUP PO SCH (10:58)
--- NOTE | 2019-08-02 16:17 | PDOC PROGRESS REPORT ---
Subjective Progress Note for:: 08/02/19 Subjective:: The patient is a 69-year-old female with a past medical history of end-stage hepatic cirrhosis, CHF, hypertension, COPD, DM, hypothyroidism who was admitted 07/28/2019 with hepatic encephalitis. Patient was seen on afternoon rounds. She was found resting in bed, comfo rtably, on supplemental oxygen at 6 L/min; uses 2 L/min at baseline. O2 has been turned up to 6lpm s/p chest tube removal; was comfortably and maintaining saturations on 3lpm this morning. Patient states she is feeling well and is hopeful to discharge home tomorrow. She denies fever, headache, dizziness, chest pain, palpitations, dyspnea, orthopnea, abdominal pain, nausea vomiting diarrhea. She has no questions or concerns at this time. No concerns per nursing. Reason For Visit: HEPATIC ENCEPHALOPATHY Physical Exam Vital Signs: Temp Pulse Resp BP Pulse Ox 97.8 F 82 20 111/46 L 100 08/02/19 13:22 08/02/19 14:00 08/02/19 13:22 08/02/19 13:22 08/02/19 13:22 Intake & Output 08/01/19 08/02/19 08/03/19 06:59 06:59 06:59 Intake Total 1040 630 720 Output Total 1370 896 25 Balance -330 -266 695 Weight 54 kg 54.4 kg 54.4 kg General appearance: PRESENT: no acute distress, cooperative, thin, well- developed Head exam: PRESENT: atraumatic, normocephalic Eye exam: PRESENT: conjunctiva pink, EOMI, PERRLA. ABSENT: scleral icterus Mouth exam: PRESENT: moist, tongue midline Respiratory exam: PRESENT: clear to auscultation josh, decreased breath sounds - bibasilar, symmetrical, unlabored, other - Supplemental oxygen by nasal cannula. Chest tube has been discontinued; occlusive dressing in place.. ABSENT: rales, rhonchi, wheezes Cardiovascular exam: PRESENT: RRR, +S1, +S2. ABSENT: diastolic murmur, rubs, systolic murmur Pulses: PRESENT: normal dorsalis pedis pul Vascular exam: PRESENT: normal capillary refill Gentrourinary exam: ABSENT: indwelling catheter Extremities exam: PRESENT: full ROM. ABSENT: calf tenderness, clubbing, pedal edema Neurological exam: PRESENT: alert, awake, oriented to person, oriented to place, oriented to time, oriented to situation, CN II-XII grossly intact, other - fatigued/forgetful. ABSENT: motor sensory deficit Psychiatric exam: PRESENT: appropriate affect, normal mood. ABSENT: homicidal ideation, suicidal ideation Skin exam: PRESENT: dry, intact, warm. ABSENT: cyanosis, rash Results Laboratory Results: 07/31/19 04:30 08/02/19 05:21 08/02/19 05:21 Sodium 134.6 L Potassium 4.0 Chloride 102 Carbon Dioxide 25 Anion Gap 8 BUN 41 H Creatinine 1.09 Est GFR ( Amer) > 60 Glucose 102 Calcium 8.3 L 07/28/19 18:34 Troponin I < 0.012 Impressions: Thoracentesis Ultrasound 07/30/19 00:00 IMPRESSION: SUCCESSFUL THORACENTESIS USING ULTRASOUND GUIDANCE. Chest X-Ray 08/02/19 07:00 IMPRESSION: No significant change. No pneumothorax. Assessment and Plan - Diagnosis (1) Acute and chronic respiratory failure with hypoxia Is this a current diagnosis for this admission?: Yes Plan: Improved; near baseline oxygen requirement. Multifactorial secondary to pleural effusion, pneumothorax, right middle lobe consolidation, pulmonary hypertension, and heart failure. Evaluation management as below. (2) Pneumothorax Qualifiers: Pneumothorax type: postprocedural Qualified Code(s): J95.811 - Postprocedural pneumothorax Is this a current diagnosis for this admission?: Yes Plan: Right side pneumothorax following palliative thoracentesis. Repeat CXR showed resolution of pneumothorax. Chest tube has been discontinued. Follow up CXR tomorrow. Continue supplemental oxygen at 6lpm overnight. (3) Hepatic encephalopathy Is this a current diagnosis for this admission?: Yes Plan: Improved; A&Ox4 with intermittent fatigue/forgetfulness Hyperammonemia has resolved. Have resumed her home medication regiment of rifaximin, sildenafil, and lactulose. 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 Management as above. Patient declines Palliative care consultation at this time. lawn sprinkler servicer consulted. (6) Portal hypertension Is this a current diagnosis for this admission?: Yes Plan: We will continue her home dose spironolactone and furosemide. Consider beta nahid if blood pressure allows. (7) 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 hypertension Is this a current diagnosis for this admission?: Yes Plan: Not acutely exacerbated, will continue her home dose sildenafil (8) Acute respiratory failure with hypoxia Is this a current diagnosis for this admission?: Yes Plan: Improving; secondary to pulmonary edema and pleural effusion as her symptoms improved rapidly following lasix and BiPAP with further improvement following thoracentesis. CXR does show worsening right side consolidation. Discussed with today; reports possible aspiration event at home prior to admission (vomited the night prior to admission). He confirms that she has had thoracentesis in the past w/ Dr. Harris having previously recommended a Pleurex drain. Not interested in Pleurx at this time but agreeable to thoracentesis if indicated. Thoracentesis w/ 900mL removal. Follow-up chest x-ray shows improved aeration with a now clear right middle lobe consolidation. Unfortunately, developed apical pneumothorax requiring chest tube x48 hrs. Output is decreased, pneumothorax has resolved; Chest tube removed today. Continue supplemental oxygen as needed to maintain saturations greater than 89%. Utilizes 2 L/min at home. Continue continue spironolactone and furosemide. Continue p.o. Augmentin for potential aspiration pneumonia; hesitant to start on IV antibiotics as the patient's leukocytosis and fever have all trended down without antibiotic therapy. X-ray imaging may also represent a chemical pn eumonitis; will hold on steroid therapy at this time if she continues to improve without intervention. BiPAP nightly and PRN. (9) Hypoglycemia Is this a current diagnosis for this admission?: Yes Plan: Frequent episodes of nighttime hypoglycemia at home. Have improved since addition of Boost w/ bedtime medications. Have advanced diet; continue to monitor insulin requirements closely. Now on Lantus 8 units BID with adequate blood glucose control and no hypoglycemic events. 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 Continue Lantus 8 units twice daily. Accu-Cheks before meals and at bedtime with Humalog for sliding scale coverage. Hypoglycemia protocol in place. Registered dietitian and adaptive physical educator consulted. - Time Time Spent with patient: 35 or more minutes Medications reviewed and adjusted accordingly: Yes Anticipated discharge: Home with Homehealth Within: within 24 hours
[2019-08-03 05:50] LABS: HEMATOCRIT 27.4 % (36.0-47.0); HEMOGLOBIN 9.4 g/dL (12.0-15.5); MEAN CORPUSCULAR HEMOGLOBIN 32.4 pg (27.0-33.4); MEAN CORPUSCULAR HGB CONC 34.3 g/dL (32.0-36.0); MEAN CORPUSCULAR VOLUME 94 fl (80-97); PLATELET COUNT 106 10^3/uL (150-450); RED CELL DISTRIBUTION WIDTH 15.8 % (11.5-14.0); WHITE BLOOD COUNT 7.2 10^3/uL (4.0-10.5)
[2019-08-03] MEDS: AMOXICILLIN TR/POT CLAVULANATE 500-125 MG TAB PO SCH (05:50)
[2019-08-03] MEDS: LEVOTHYROXINE SODIUM 0.15 MG TABLET PO SCH (05:50)
[2019-08-03 06:06] LABS: ANION GAP 6 (5-19); BLOOD UREA NITROGEN 44 mg/dL (7-20); CALCIUM 8.3 mg/dL (8.4-10.2); CARBON DIOXIDE 25 mmol/L (22-30); CHLORIDE 100 mmol/L (98-107); GLUCOSE 253 mg/dL (75-110); POTASSIUM 4.4 mmol/L (3.6-5.0)
[2019-08-03] MEDS: SPIRONOLACTONE 25 MG TABLET PO SCH (08:40)
[2019-08-03] MEDS: FUROSEMIDE 20 MG TABLET PO SCH (08:40)
[2019-08-03] MEDS: INSULIN LISPRO 100 UNIT/ML 3 ML VIAL SUBCUT SCH ×2 (08:40→11:40)
[2019-08-03] MEDS: FERROUS SULFATE 325 MG TABLET PO SCH (08:40)
--- NOTE | 2019-08-03 09:06 | RADIOLOGY REPORT (SQ) ---
EXAM DESCRIPTION: CHEST SINGLE VIEW IMAGES COMPLETED DATE/TIME: 08/03/2019 8:01 am REASON FOR STUDY: chest tube removal COMPARISON: 08/02/2019 NUMBER OF VIEWS: One view. TECHNIQUE: Single frontal radiographic image of the chest acquired. LIMITATIONS: None. FINDINGS: LUNGS AND PLEURA: Bilateral pleural effusions and associated airspace disease not signific antly changed. No pneumothorax. MEDIASTINUM AND HEART: Stable heart size and mediastinal structures. SUPPORT DEVICES: Interval removal of right chest tube. BONY STRUCTURES: No acute findings. HARDWARE: None. OTHER: No other significant finding. IMPRESSION: Interval removal of right chest tube. No pneumothorax. Reading location - IP/workstation name: [email or web address]
[2019-08-03] MEDS: MULTIVITAMIN TABLET PO SCH (09:41)
[2019-08-03] MEDS: MEGESTROL ACETATE SUSP 400 MG/10 ML UDCUP PO SCH (09:41)
[2019-08-03] MEDS: LACTULOSE SYRUP 20 GM/30 ML UDCUP PO SCH (09:41)
[2019-08-03] MEDS: SILDENAFIL CITRATE 20 MG TABLET PO SCH (09:41)
[2019-08-03] MEDS: CYANOCOBALAMIN (VITAMIN B-12) 1,000 MCG TABLET PO SCH (09:41)
[2019-08-03] MEDS: MAGNESIUM OXIDE 400 MG TABLET PO SCH (09:41)
[2019-08-03] MEDS: URSODIOL 300 MG CAPSULE PO SCH (09:42)
[2019-08-03] MEDS: RIFAXIMIN 550 MG TABLET PO SCH (09:42)
[2019-08-03] MEDS: MIDODRINE HCL 5 MG TABLET PO SCH (09:44)
[2019-08-03] MEDS ORDERED: INSULIN GLARGINE,HUM.REC.ANLOG 1,000 UNIT/10 ML VIAL SUBCUT SCH (11:00)
--- NOTE | 2019-08-03 12:30 | PDOC DISCHARGE SUMMARY ---
Impression - Admit/DC Date/PCP Admission Date/Primary Care Provider: 07/28/19 09:14 RUTH SHELDON Discharge Date: 08/03/19 - Discharge Diagnosis (1) Acute and chronic respiratory failure with hypoxia Is this a current diagnosis for this admission?: Yes (2) Pneumothorax Is this a current diagnosis for this admission?: Yes (3) Hepatic encephalopathy Is this a current diagnosis for this admission?: Yes (4) Esophageal varices Is this a current diagnosis for this admission?: Yes (5) Cirrhosis Is this a current diagnosis for this admission?: Yes (6) Portal hypertension Is this a current diagnosis for this admission?: Yes (7) 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 hypertension Is this a current diagnosis for this admission?: Yes (8) Acute respiratory failure with hypoxia Is this a current diagnosis for this admission?: Yes (9) Hypoglycemia Is this a current diagnosis for this admission?: Yes (10) Diabetes mellitus Is this a current diagnosis for this admission?: Yes - Additional Information Resuscitation Status: Full Code Discharge Diet: Diabetic, Other (Comments) - Increase sodium (salt) intake Discharge Activity: Activity As Tolerated, Balance Activity w/Rest, Slowly Increase Activity Referrals: ELIZABETH CHEN FNP-C [Primary Care Provider] - (Follow up within 1 week. Recommend BMP at follow up to check electrolytes (Sodium and Potassium as medications have been adjusted that affect these.)) Prescriptions: Spironolactone [Aldactone 25 mg Tablet] 50 mg PO QAM #60 tablet Amox Tr/Potassium Clavulanate [Augmentin "500" Tablet] 1 tab PO Q8 #14 tablet Furosemide [Lasix 20 mg Tablet] 60 mg PO QAM #90 tablet Megestrol Acetate [Megace Esther 400 mg/10 ml Udcup] 200 mg PO DAILY #30 udc Sodium Chloride [Sodium Chloride 1 Gm Tablet] 1 gm PO DAILY #7 tablet Home Medications: Pantoprazole Sodium [Protonix [address] Tablet] 40 mg PO QAM 03/14/19 Levothyroxine Sodium 150 mcg PO Q6AM 30 Days 04/26/19 Midodrine HCl [Proamatine 5 mg Tablet] 10 mg PO TID 30 Days tablet 04/26/19 Ursodiol [Actigall 300 mg Capsule] 300 mg PO Q12 30 Days 04/26/19 Cyanocobalamin (Vitamin B-12) [Vitamin B-12 1000 mcg Tablet] 1,000 mcg PO DAILY 05/25/19 Ferrous Sulfate [Feosol 325 mg Tablet] 325 mg PO QAM 05/25/19 Insulin Aspart [Novolog Flexpen] 0 unit SUBCUT .SLD SCALE 05/25/19 Magnesium Oxide [Magnesium] 250 mg PO DAILY 05/25/19 Multivitamin [Tab-A-Natalia (Multiple Vitamin) Tablet] 1 tab PO DAILY 05/25/19 Sildenafil Citrate [Revatio 20 mg Tablet] 10 mg PO TID 05/25/19 Rifaximin [Xifaxan 550 mg Tablet] 550 mg PO BID 05/31/19 Lactulose [Cephulac Syrup 20 gm/30 ml Udcup] 20 gm PO QID #0 06/03/19 Amox Tr/Potassium Clavulanate [Augmentin "500" Tablet] 1 tab PO Q8 #14 tablet 08/03/19 Furosemide [Lasix 20 mg Tablet] 60 mg PO QAM #90 tablet 08/03/19 Insulin Degludec [Tresiba Flextouch U-200] 10 unit SQ QAM #0 08/03/19 Insulin Degludec [Tresiba Flextouch U-200] 10 unit SQ QHS #0 08/03/19 Megestrol Acetate [Megace Esther 400 mg/10 ml Udcup] 200 mg PO DAILY #30 udc 08/03/19 Sodium Chloride [Sodium Chloride 1 Gm Tablet] 1 gm PO DAILY #7 tablet 08/03/19 Spironolactone [Aldactone 25 mg Tablet] 50 mg PO QAM #60 tablet 08/03/19 History of Present Illiness History of Present Illness: Per H&P by Dr. Rubi: MAURA CHRIS is a 69 year old female with a history of hepatic cirrhosis who presents encephalopathic. All the information obtained from the medical record. The patient is unable to provide a history and her is not here. Apparently he called EMS. He told them "she gets like this every 6 weeks or so it has to be admitted to the hospital." She was here back in May, and compliance with her medication regimen at home was in question. I do not know if she manages her own medications or if her manages them for her. She was protecting her airway but was otherwise unrespons ale. Her ammonia level was 222. Hospital Course Hospital Course: (1) Acute and chronic respiratory failure with hypoxia Resolved; at baseline oxygen requirement. Multifactorial secondary to pleural effusion, pneumothorax, right middle lobe consolidation, pulmonary hypertension, and heart failure. Evaluation and management as below. (2) Pneumothorax Resolved. Right side pneumothorax following palliative thoracentesis. Repeat CXR showed resolution of pneumothorax. Chest tube has been discontinued. Repeat CXR the day following chest tube removal is stable; no pneumothorax. (3) Hepatic encephalopathy Resolved; A&Ox4 with intermittent fatigue/forgetfulness Hyperammonemia has resolved. Have resumed her home medication regiment of rifaximin, sildenafil, and lactulose. Continue furosemide and spironolactone and new dose adjustments. (4) Esophageal varices No evidence of bleeding at this time Continue PPI Unfortunately, her blood pressure does not allow for beta nahid. (5) Cirrhosis End stage. Management as above. Patient declines Palliative care consultation at this time. plug assembler was consulted. (6) Portal hypertension Continue spironolactone and furosemide. Unfortunately, her blood pressure does not allow for beta nahid (7) 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 hypertension Not acutely exacerbated, will continue her home dose sildenafil (8) Acute respiratory failure with hypoxia Resolved; now at baseline oxygen requirement. Secondary to pulmonary edema and pleural effusion as her symptoms improved rapidly following lasix and BiPAP with further improvement following thoracentesis. CXR does show worsening right side consolidation. Discussed with today; reports possible aspiration event at home prior to admission (vomited the night prior to admission). He confirms that she has had thoracentesis in the past w/ Dr. Harris having previously recommended a Pleurex drain. Not interested in Pleurx at this time but agreeable to thoracentesis if indicated. Thoracentesis w/ 900mL removal. Follow-up chest x-ray shows improved aeration with a now clear right middle lobe consolidation. Unfortunately, developed apical pneumothorax requiring chest tube x48 hrs. Output is decreased, pneumothorax has resolved; Chest tube removed today. Continue supplemental oxygen as needed to maintain saturations greater than 89%. Continue spironolactone and furosemide. Continue p.o. Augmentin for coverage of aspiration pneumonia; though with low suspicion this has occurred. It is more likely that imagining reveals chronic lung disease with atelectasis as patient remains afebrile with nml WBCs. (9) Hypoglycemia Frequent episodes of nighttime hypoglycemia at home. Have improved since addition of Boost w/ bedtime medications. Have advanced diet; continue to monitor insulin requirements closely. Now on Lantus 10 units BID with adequate blood glucose control and no hypoglycemic events. (10) Diabetes mellitus A1c (05/06/2019) 5.5% Held oral medications while admitted. Continue Lantus 10 units twice daily. Resume Tresiba at 10 units BID upon return home. Accu-Cheks before meals and at bedtime with Humalog for sliding scale coverage. Would recommend that her PCP consider reduced glycemic control. For a patient with <10 year life expectance, it is acceptable to have a goal A1c as high as 8.5%. Physical Exam Vital Signs: Temp Pulse Resp BP Pulse Ox 98.1 F 84 18 102/44 L 95 08/03/19 07:42 08/03/19 07:42 08/03/19 07:42 08/03/19 07:42 08/03/19 07:42 Intake & Output 08/02/19 08/03/19 08/04/19 06:59 06:59 06:59 Intake Total 630 1440 Output Total 896 77 Balance -266 1363 Weight 54.4 kg 55.2 kg General appearance: PRESENT: no acute distress, cooperative, thin, well- developed Head exam: PRESENT: atraumatic, normocephalic Eye exam: PRESENT: conjunctiva pink, EOMI, PERRLA. ABSENT: scleral icterus Mouth exam: PRESENT: moist, tongue midline Respiratory exam: PRESENT: clear to auscultation josh, decreased breath sounds - Bibasilar, symmetrical, unlabored, other - Baseline oxygen requirement. ABSENT: rales, rhonchi, wheezes Cardiovascular exam: PRESENT: RRR. ABSENT: diastolic murmur, rubs, systolic murmur Pulses: PRESENT: normal dorsalis pedis pul Vascular exam: PRESENT: normal capillary refill GI/Abdominal exam: PRESENT: normal bowel sounds, soft. ABSENT: distended, guarding, mass, organolmegaly, rebound, tenderness Rectal exam: PRESENT: deferred Extremities exam: PRESENT: full ROM. ABSENT: calf tenderness, clubbing, pedal edema Neurological exam: PRESENT: alert, awake, oriented to person, oriented to place, oriented to time, oriented to situation, CN II-XII grossly intact, other - Intermittently forgetful and confused. ABSENT: motor sensory deficit Psychiatric exam: PRESENT: appropriate affect, normal mood. ABSENT: homicidal ideation, suicidal ideation Skin exam: PRESENT: dry, intact, warm. ABSENT: cyanosis, rash Results Laboratory Results: WBC 7.2 10^3/uL (4.0-10.5) 08/03/19 05:17 RBC 2.90 10^6/uL (3.72-5.28) L 08/03/19 05:17 Hgb 9.4 g/dL (12.0-15.5) L 08/03/19 05:17 Hct 27.4 % (36.0-47.0) L 08/03/19 05:17 MCV 94 fl (80-97) 08/03/19 05:17 MCH 32.4 pg (27.0-33.4) 08/03/19 05:17 MCHC 34.3 g/dL (32.0-36.0) 08/03/19 05:17 RDW 15.8 % (11.5-14.0) H 08/03/19 05:17 Plt Count 106 10^3/uL (150-450) L 08/03/19 05:17 Lymph % (Auto) 6.3 % (13-45) L 07/28/19 18:34 [place] % (Auto) 4.5 % (3-13) 07/28/19 18:34 Eos % (Auto) 0.9 % (0-6) 07/28/19 18:34 Baso % (Auto) 0.3 % (0-2) 07/28/19 18:34 Absolute Neuts (auto) 8.5 10^3/uL (1.7-8.2) H 07/28/19 18:34 Absolute Lymphs (auto) 0.6 10^3/uL (0.5-4.7) 07/28/19 18:34 Absolute Monos (auto) 0.4 10^3/uL (0.1-1.4) 07/28/19 18:34 Absolute Eos (auto) 0.1 10^3/uL (0.0-0.6) 07/28/19 18:34 Absolute Basos (auto) 0.0 10^3/uL (0.0-0.2) 07/28/19 18:34 Seg Neutrophils % 88.0 % (42-78) H 07/28/19 18:34 PT 17.2 SEC (11.4-15.4) H 07/30/19 09:39 INR 1.39 07/30/19 09:39 APTT 40.2 SEC (23.5-35.8) H 07/30/19 09:39 D-Dimer 3.53 ug/mL (0.00-0.50) H 07/28/19 18:34 Carbonic Acid 1.13 mmol/L (1.05-1.35) 07/28/19 20:18 HCO3/H2CO3 Ratio 22:1 07/28/19 20:18 ABG pH 7.46 (7.35-7.45) H 07/28/19 20:18 ABG pCO2 37.6 mmHg (35-45) 07/28/19 20:18 ABG pO2 70.7 mmHg (80-100) L 07/28/19 20:18 ABG HCO3 25.8 mmol/L (20-24) H 07/28/19 20:18 ABG Total CO2 27.0 mmol/L (21-25) H 07/28/19 20:18 ABG O2 Saturation 95.0 % (94-98) 07/28/19 20:18 ABG Base Excess 2.0 mmol/L 07/28/19 20:18 VBG pH 7.48 (7.30-7.42) H 07/28/19 07:19 VBG pCO2 40.0 mmHg (35-63) 07/28/19 07:19 VBG HCO3 29.3 mmol/L (20-32) 07/28/19 07:19 VBG Base Excess 5.5 mmol/L 07/28/19 07:19 FiO2 55% 07/28/19 20:18 Sodium 131.4 mmol/L (137-145) L 08/03/19 05:17 Potassium 4.4 mmol/L (3.6-5.0) 08/03/19 05:17 Chloride 100 mmol/L (98-107) 08/03/19 05:17 Carbon Dioxide 25 mmol/L (22-30) 08/03/19 05:17 Anion Gap 6 (5-19) 08/03/19 05:17 BUN 44 mg/dL (7-20) H 08/03/19 05:17 Creatinine 1.14 mg/dL (0.52-1.25) 08/03/19 05:17 Est GFR ( Amer) 57 (>60) L 08/03/19 05:17 Est GFR (MDRD) Non-Af 47 (>60) L 08/03/19 05:17 Glucose 253 mg/dL (75-110) H 08/03/19 05:17 POC Glucose 369 mg/dL (70-110) H 08/03/19 11:36 Calcium 8.3 mg/dL (8.4-10.2) L 08/03/19 05:17 Magnesium 1.9 mg/dL (1.6-2.3) 07/28/19 07:19 Total Bilirubin 2.3 mg/dL (0.2-1.3) H 07/28/19 18:34 Direct Bilirubin 0.8 mg/dL (0.0-0.4) H 07/28/19 18:34 Neonat Total Bilirubin Not Reportable 07/28/19 18:34 Neonat Direct Bilirubin Not Reportable 07/28/19 18:34 Neonat Indirect Bili Not Reportable 07/28/19 18:34 AST 28 U/L (14-36) 07/28/19 18:34 ALT 14 U/L (<35) 07/28/19 18:34 Alkaline Phosphatase 155 U/L (38-126) H 07/28/19 18:34 Ammonia 40.0 umol/L (9-33) H 07/31/19 04:30 Troponin I < 0.012 ng/mL 07/28/19 18:34 Total Protein 7.2 g/dL (6.3-8.2) 07/28/19 18:34 Albumin 3.1 g/dL (3.5-5.0) L 07/28/19 18:34 Random Cortisol 20.80 ug/dL (None Established) 07/29/19 15:13 Cortisol AM Sample 13.90 ug/dL (4.46-22.7) 07/30/19 06:40 Urine Color YELLOW 07/28/19 07:55 Urine Appearance CLEAR 07/28/19 07:55 Urine pH 5.0 (5.0-9.0) 07/28/19 07:55 Ur Specific [place] 1.013 07/28/19 07:55 Urine Protein NEGATIVE mg/dL (NEGATIVE) 07/28/19 07:55 Urine Glucose (UA) NEGATIVE mg/dL (NEGATIVE) 07/28/19 07:55 Urine Ketones NEGATIVE mg/dL (NEGATIVE) 07/28/19 07:55 Urine Blood NEGATIVE (NEGATIVE) 07/28/19 07:55 Urine Nitrite NEGATIVE (NEGATIVE) 07/28/19 07:55 Urine Bilirubin NEGATIVE (NEGATIVE) 07/28/19 07:55 Urine Urobilinogen NEGATIVE mg/dL (<2.0) 07/28/19 07:55 Ur Leukocyte Esterase NEGATIVE (NEGATIVE) 07/28/19 07:55 Urine WBC (Auto) 4 /HPF 07/28/19 07:55 Urine RBC (Auto) 1 /HPF 07/28/19 07:55 U Hyaline Cast (Auto) 10 /LPF 07/28/19 07:55 Urine Bacteria (Auto) TRACE /HPF 07/28/19 07:55 Squamous Epi Cells Auto <1 /HPF 07/28/19 07:55 Urine Mucus (Auto) RARE /LPF 07/28/19 07:55 Urine Yeast (Budding) PRESENT /HPF 07/28/19 07:55 Urine Ascorbic Acid 40 (NEGATIVE) H 07/28/19 07:55 Urine Opiates Screen NEGATIVE 07/28/19 07:55 Urine Methadone Screen NEGATIVE 07/28/19 07:55 Ur Barbiturates Screen NEGATIVE 07/28/19 07:55 Ur Phencyclidine Scrn NEGATIVE 07/28/19 07:55 Ur Amphetamines Screen NEGATIVE 07/28/19 07:55 U Benzodiazepines Scrn NEGATIVE 07/28/19 07:55 Urine Cocaine Screen NEGATIVE 07/28/19 07:55 U Marijuana (THC) Screen NEGATIVE 07/28/19 07:55 Serum Alcohol < 10 mg/dL (NONE DETECTED) 07/28/19 07:19 07/28/19 18:34 Troponin I < 0.012 Impressions: Chest X-Ray 07/28/19 08:46 IMPRESSION: 1. Dense bilateral basilar predominant opacities that likely represent a combination of pleural fluid atelectasis. The opacities are unchan ged compared to 05/31/2019. 2. Cardiomegaly and mild indistinctness of the interstitium. Chest X-Ray 07/28/19 17:58 IMPRESSION: Slight increase in the right-sided airspace disease as described. No other interval change. Chest X-Ray 07/29/19 00:00 IMPRESSION: NO CHANGE IN APPEARANCE OF THE CHEST. CARDIOMEGALY WITH BILATERAL PLEURAL EFFUSIONS AND BILATERAL AIRSPACE DISEASE, RIGHT GREATER THAN LEFT. Thoracentesis Ultrasound 07/30/19 00:00 IMPRESSION: SUCCESSFUL THORACENTESIS USING ULTRASOUND GUIDANCE. Chest X-Ray 07/30/19 11:45 IMPRESSION: No definitive pneumothorax post thoracentesis. Lucency at the right lung base favored to represent improved basilar aeration. Persistent dense medial lobe consolidation and mild bilateral effusions. Stable large cardiac silhouette. Chest X-Ray 07/30/19 14:45 IMPRESSION: Small right apical pneumothorax, new from prior. Persistent basilar lucency may represent basilar pneumothorax component as well. No evidence of tension. Stable enlarged cardiac silhouette, small bilateral effusions and bibasilar consolidation. Chest X-Ray 07/31/19 08:00 IMPRESSION: Stable chest status post chest tube placement. Residual right apical pneumothorax. Chest X-Ray 08/01/19 00:00 IMPRESSION: Unchanged size of the right apical pneumothorax. Chest X-Ray 08/02/19 07:00 IMPRESSION: No significant change. No pneumothorax. Chest X-Ray 08/03/19 08:00 IMPRESSION: Interval removal of right chest tube. No pneumothorax. Plan Plan of Treatment: Patient is discharged home in fair, but stable, condition. During multiple conversations with the patient and her throughout her admission they have declined home health services. Spoke with the patient's again prior to her discharge today, he again declines SNF for short-term rehab and home health services due to overwhelming fear of coronavirus. Follow-up with primary care provider within 1 week. Recommend repeat BMP at this visit. Complete full course of antibiotic therapy. Take your other medication as prescribed. Do NOT smoke. Return to emergency department as needed for concerning symptoms. Time Spent: Greater than 30 Minutes Stroke Is this a Stroke Patient?: No Acute Heart Failure - Is this a Heart Failure Patient?: No
[2019-08-03 15:39] VITALS: BP 108/35
--- NOTE | 2019-08-11 08:37 | RADIOLOGY REPORT (SQ) ---
EXAM DESCRIPTION: CT INSERTION OF CHEST TUBE IMAGES COMPLETED DATE/TIME: 07/30/2019 5:11 pm REASON FOR STUDY: RT PLEURAL EFFUSION COMPARISON: None. TECHNIQUE: After obtaining informed consent and explaining the risks and benefits of conscious sedat ion,the patient agreed to the procedure. The patient was brought to the CT suite and was placed supin e on the CT gurney. The patient was prepped and draped in the usual sterile fashion. Axial images we re obtained for targeting of theright-sided hydropneumothorax. An appropriate access site was selecte d. IV conscious sedation was administered and physician direction by the registered nurse using 1 mil ligrams of Versed and 50 micrograms of fentanyl. Physiologic monitoring was provided before, during, and after sedation. The total sedation time was 30 minutes. Documentation face to face time, the performing proceduralist, spent monitoring the patient: [address] of the chest was performed to localize approach for the right-sided chest tube plac ement. A percutaneous site was marked. Time out was performed. After skin prep and local lidocaine for skin and deep tissue anesthesia, a 18 gauge introducer needl e was advanced into the right hemithorax under aspiration. After return of air and fluid a 035 wire was advanced. The needle was removed. The tract was dilated. A 10 [place] pigtail catheter was adva nced over the wire. The wire and inner stiffener were removed and the pigtail formed in a standard f ashion. The catheter was secured to the skin and hooked to a Pleur-Evac device. No immediate postpr ocedure complications. Total of 1.[address] fluoro was used. 4 CT Fluoroscopic images were obtained and saved to PACS. All CT scanners at this facility use dose modulation, iterative reconstruction, and/or weight based d osing when appropriate to reduce radiation dose to as low as reasonably achievable (ALARA). [facility]: Dose Right [facility]: CareDose [facility]: Dose Right [facility]: Teradose 4D [facility]: [employer] RADIATION DOSE: CT Rad equipment meets quality standard of care and radiation dose reduction techniq ues were employed. CTDIvol: 6.7 - 10.0 mGy. DLP: 253 mGy-cm. mGy. LIMITATIONS: None. FINDINGS: CT fluoroscopy guided small bore right-sided chest tube placement as detailed above. IMPRESSION: CT FLUOROSCOPY GUIDED SMALL BORE RIGHT-SIDED CHEST TUBE PLACEMENT DETAILED ABOVE. COMMENT: Patient medication list reviewed:Yes- Quality ID# [id number]:Eligible professional attests to docu menting in the medical record they obtained, updated, or reviewed the patient's current medications.. Quality ID 145: Final reports for procedures using fluoroscopy that document radiation exposure meg isaac, or exposure time and number of fluorographic images (if radiation exposure indices are not avail able) TECHNICAL DOCUMENTATION: JOB ID: [id number] Quality ID # [id number]: Final reports with documentation of one or more dose reduction techniques (e.g., A utomated exposure control, adjustment of the mA and/or kV according to patient size, use of iterative reconstruction technique) 2010 [employer]- All Rights Reserved Reading location - IP/workstation name: [email or web address]
--- NOTE | 2019-08-11 08:48 | RADIOLOGY REPORT (SQ) ---
EXAM DESCRIPTION: CT NEEDLE PLACEMENT COMPLETE DATE/TIME: 07/30/2019 5:11 pm REASON FOR STUDY: RT PLEURAL EFFUSION FINDINGS: Please see combined report for performance of procedure and radiologic supervision and int erpretation. IMPRESSION: Please see combined report for performance of procedure and radiologic supervision and i nterpretation. Reading location - IP/workstation name: [email or web address]
== END 2019-08-03 12:45 | disposition home or self-care (01) | DRG 291 ==
LOC: ER 07:07 → EH 09:14 → 3N 13:04
PROVIDERS: ADMIT Family Medicine; ATTEND Registered Nurse
PROC: 5A09557 Assistance with Respiratory Ventilation, Greater than 96 Consecutive Hours, Continuous Positive Airway Pressure (ICD-10-PCS; principal; 2019-07-28)
PROC: 0W993ZX Drainage of Right Pleural Cavity, Percutaneous Approach, Diagnostic (ICD-10-PCS; 2019-07-30)
DX: I50.811 Acute right heart failure (principal); J96.21 Acute and chronic respiratory failure with hypoxia; G04.81 Other encephalitis and encephalomyelitis; I85.10 Secondary esophageal varices without bleeding; K76.6 Portal hypertension; J95.811 Postprocedural pneumothorax; J91.8 Pleural effusion in other conditions classified elsewhere; E72.20 Disorder of urea cycle metabolism, unspecified; K72.90 Hepatic failure, unspecified without coma; I27.29 Other secondary pulmonary hypertension; E11.649 Type 2 diabetes mellitus with hypoglycemia without coma; I11.0 Hypertensive heart disease with heart failure; J44.9 Chronic obstructive pulmonary disease, unspecified; E03.9 Hypothyroidism, unspecified; K21.9 Gastro-esophageal reflux disease without esophagitis; D64.9 Anemia, unspecified; K74.3 Primary biliary cirrhosis; E11.65 Type 2 diabetes mellitus with hyperglycemia; Z79.4 Long term (current) use of insulin; Z79.899 Other long term (current) drug therapy; Z79.890 Hormone replacement therapy; Z87.891 Personal history of nicotine dependence
CPT/HCPCS: 32555; 32557; 36415; 36600; 71045; 77012; 80048; 80053; 80307; 81001; 82140; 82533; 82803; 82962; 83735; 84484; 85025; 85027; 85379; 85610; 85730; 87070; 88305; 93005; 93010; 94660; 99291; A9270-GY; C1729; C1769; C1894; C9113; J1265; J1815; J1940; J2270; J3010; J3480; J3490

== ENCOUNTER → 2019-09-03 | Outpatient (CLI) | payer MEDICARE ==
[2019-09-03 14:57] LABS: ABSOLUTE EOSINOPHILS # (AUTO) 0.2 10^3/uL (0.0-0.6); ABSOLUTE LYMPHOCYTES (AUTO) 0.8 10^3/uL (0.5-4.7); ABSOLUTE MONOCYTES (AUTO) 0.5 10^3/uL (0.1-1.4); BASOPHILS % (AUTO) 0.9 % (0-2); EOSINOPHILS % (AUTO) 4.1 % (0-6); HEMOGLOBIN 10.5 g/dL (12.0-15.5); LYMPHOCYTES % (AUTO) 18.4 % (13-45); MEAN CORPUSCULAR HEMOGLOBIN 31.8 pg (27.0-33.4); MEAN CORPUSCULAR HGB CONC 33.8 g/dL (32.0-36.0); MEAN CORPUSCULAR VOLUME 94 fl (80-97); MONOCYTES % (AUTO) 10.8 % (3-13); PLATELET COUNT 120 10^3/uL (150-450); SEGMENTED NEUTROPHILS % (AUTO) 65.8 % (42-78); TOTAL CELLS COUNTED % (AUTO) 100 %; WHITE BLOOD COUNT 4.5 10^3/uL (4.0-10.5)
[2019-09-03 15:26] LABS: ALKALINE PHOSPHATASE 129 U/L (38-126); ASPARTATE AMINO TRANSFERASE 30 U/L (14-36); BILIRUBIN,DIRECT 0.5 mg/dL (0.0-0.4); BILIRUBIN,TOTAL 1.5 mg/dL (0.2-1.3); TOTAL PROTEIN 6.8 g/dL (6.3-8.2)
== END ==
LOC: OD 14:14
PROVIDERS: ATTEND Family Medicine Geriatric Medicine
DX: K74.60 Unspecified cirrhosis of liver (principal); K76.0 Fatty (change of) liver, not elsewhere classified; Z79.899 Other long term (current) drug therapy
CPT/HCPCS: 36415; 80076; 82140; 85025

== ENCOUNTER → 2019-09-10 | Outpatient (CLI) | payer MEDICARE | LOC: OD 16:55 | PROVIDERS: ATTEND Family Medicine Geriatric Medicine | DX: E03.9 Hypothyroidism, unspecified (principal); Z79.899 Other long term (current) drug therapy | CPT/HCPCS: 36415; 84443 ==

== ENCOUNTER 2019-09-23 12:51 | Inpatient (IN) | payer MEDICARE ==
[2019-09-23 14:02] LABS: ABSOLUTE EOSINOPHILS # (AUTO) 0.1 10^3/uL (0.0-0.6); ABSOLUTE LYMPHOCYTES (AUTO) 0.7 10^3/uL (0.5-4.7); ABSOLUTE MONOCYTES (AUTO) 0.3 10^3/uL (0.1-1.4); BASOPHILS % (AUTO) 0.4 % (0-2); EOSINOPHILS % (AUTO) 1.8 % (0-6); HEMATOCRIT 32.1 % (36.0-47.0); LYMPHOCYTES % (AUTO) 16.6 % (13-45); MEAN CORPUSCULAR HEMOGLOBIN 31.9 pg (27.0-33.4); MEAN CORPUSCULAR HGB CONC 34.2 g/dL (32.0-36.0); MEAN CORPUSCULAR VOLUME 93 fl (80-97); MONOCYTES % (AUTO) 7.8 % (3-13); PLATELET COUNT 114 10^3/uL (150-450); RED BLOOD COUNT 3.45 10^6/uL (3.72-5.28); RED CELL DISTRIBUTION WIDTH 17.9 % (11.5-14.0); SEGMENTED NEUTROPHILS % (AUTO) 73.4 % (42-78); TOTAL CELLS COUNTED % (AUTO) 100 %; WHITE BLOOD COUNT 4.1 10^3/uL (4.0-10.5)
[2019-09-23 14:10] LABS: INTERNATIONAL RATION (INR) 1.17
[2019-09-23 14:18] LABS: ALBUMIN 2.7 g/dL (3.5-5.0); ALKALINE PHOSPHATASE 137 U/L (38-126); ANION GAP 6 (5-19); ASPARTATE AMINO TRANSFERASE 34 U/L (14-36); BILIRUBIN,DIRECT 0.6 mg/dL (0.0-0.4); BILIRUBIN,TOTAL 1.6 mg/dL (0.2-1.3); BLOOD UREA NITROGEN 35 mg/dL (7-20); CALCIUM 8.8 mg/dL (8.4-10.2); CARBON DIOXIDE 29 mmol/L (22-30); CHLORIDE 98 mmol/L (98-107); GLUCOSE 221 mg/dL (75-110); POTASSIUM 4.4 mmol/L (3.6-5.0); TOTAL PROTEIN 6.6 g/dL (6.3-8.2)
[2019-09-23 14:21] LABS: VENOUS BLOOD BASE EXCESS 1.5 mmol/L; VENOUS BLOOD HCO3 24.8 mmol/L (20-32); VENOUS BLOOD PCO2 34.9 mmHg (35-63); VENOUS BLOOD PH 7.47 (7.30-7.42)
--- NOTE | 2019-09-23 14:40 | ER Document Report ---
ED General - General Chief Complaint: Unresponsive Stated Complaint: UNRESPONSIVE Time Seen by Provider: 09/23/19 13:21 Primary Care Provider: LACEY THOMAS MD [Primary Care Provider] - Follow up as needed Information source: Relative - Notes: 69-year-old female brought in by EMS for unresponsiveness. Patient apparently has a history of nonalcoholic steatohepatitis that is being treated with lactulose. Patient has had multiple hospitalizations for this over the past 6 weeks. Patient is normally treated with lactulose 20 g 4 times a day however her was recently instructed to change it from 4 times a day which she had been frontloaded mostly into the morning and early afternoon to giving it strictly every 6 hours. states that she has been generally unresponsive since 6 AM. He states that this is a more severe degree of unresponsiveness than she is ever had before. States that normally even when she has an elevated ammonia level he is able to say her name and she will say hello. States that due to his concerns of her elevated ammonia he tried to give her 2 extra doses of lactulose this morning, states that she was gagging and then vomited up the second dose. He is concerned that she may have developed a small bowel obstruction as her stools have been a little bit firmer than usual. He does state that she generally has 8-10 loose bowel movements every 24 hours. Denies any fevers, denies any other symptoms. States she was tested for дмитрий navirus at [facility] 2 weeks ago and was negative. Has not been tested since then. TRAVEL OUTSIDE OF THE [place] IN LAST 30 DAYS: No - Related Data Allergies/Adverse Reactions: No Known Allergies Allergy (Verified 07/28/19 07:38) Home Medications: klor-con, ferrous sulfate, lactulose, lantus, lasix, levothyroxine, novolog, pantoprazole, spironolactone, xalatan Past Medical History - General Information source: Relative - - Social History Smoking Status: Never Smoker Frequency of alcohol use: None Family History: COPD - Past Medical History Cardiac Medical History: Reports: Hx Congestive Heart Failure, Hx Hypertension Pulmonary Medical History: Reports: Hx COPD Endocrine Medical History: Reports: Hx Diabetes Mellitus Type 1, Hx Hypothyroi dism Renal/ Medical History: Denies: Hx Peritoneal Dialysis GI Medical History: Reports: Hx Cirrhosis, Hx Gastroesophageal Reflux Disease Musculoskeletal Medical History: Reports Hx Arthritis Psychiatric Medical History: Denies: Hx Depression Past Surgical History: Reports: Hx Abdominal Surgery - hernia repair, Hx Section - x2, Hx Cholecystectomy, Hx Herniorrhaphy, Hx Hysterectomy, Hx Orthopedic Surgery, Other - Tips procedure - Immunizations Hx Pneumococcal Vaccination: 11/26/18 Review of Systems - Review of Systems Constitutional: See HPI - Unresponsive. EENT: No symptoms reported Gastrointestinal: See HPI, Nausea, Vomiting Neurological/Psychological: See HPI, Other - Decreased level of consciousness. -: Yes All other systems reviewed and negative Physical Exam - Vital signs Vitals: Temp 97 F L 09/23/19 12:52 Interpretation: Tachypneic - Notes Notes: GENERAL: Laying in bed, eyes closed, when you say her name her lips will move behind her mask but she does not make any noise. HEAD: Normocephalic, atraumatic EYES: Pupils equal, round and reactive to light. ENT: Oral mucosa dry, tongue midline. NECK: Full range of motion, supple, trachea midline. LUNGS: Clear to auscultation bilaterally, no wheezes, rales or rhonchi, no respiratory distress. HEART: Regular rate and rhythm, no murmurs, gallops, rubs. ABDOMEN: Soft, mild right upper quadrant tenderness to palpation, nondistended, bowel sounds present in all 4 quadrants. EXTREMITIES: No edema, radial and dorsalis pedis pulses 2/4 bilaterally. No cyanosis. NEUROLOGICAL: Does not answer any questions, GCS-E-2, V-2, M-5, total 9. SKIN: Warm, Dry, skin tear to the right forearm, erythema to the skin of the buttocks consistent with very early skin breakdown. Course - Re-evaluation Re-evalutation: 09/23/19 15:29 CBC shows mild anemia with a hemoglobin of 11, platelets are low at 114 consistent with liver disease, INR slightly prolonged, venous blood gas shows very mild alkalosis, CMP shows pseudohyponatremia with sodium 133.2, BUN mildly elevated at 35, glucose elevated at 221, lactic acid normal, total and direct bilirubin elevated at 1.6 and 0.6 respectively, ammonia markedly elevated at 96.6. Acute abdominal series does not show any signs of small bowel obstruction but does actually show moderate amount of stool in the rectum. I suspect that the patient has been developing some constipation which is decreasing the effectiveness of the lactulose. Patient will be given a lactulose enema and discussed with the hospitalist service for admission. 09/23/19 16:[address] Moss, agrees to admit the patient to his service on the telemetry care floor. - Vital Signs Vital signs: Temp Pulse Resp BP Pulse Ox 97 F L 77 23 H 134/54 H 97 09/23/19 13:30 09/23/19 13:30 09/23/19 13:30 09/23/19 13:30 09/23/19 13:30 - Laboratory Result Diagrams: 09/23/19 12:28 09/23/19 12:28 Laboratory results interpreted by me: 09/23/19 09/23/19 09/23/19 12:28 12:28 13:59 RBC 3.45 L Hgb 11.0 L Hct 32.1 L RDW 17.9 H Plt Count 114 L VBG pH 7.47 H VBG pCO2 34.9 L Sodium 133.2 L BUN 35 H Est GFR (MDRD) Non-Af 55 L Glucose 221 H Total Bilirubin 1.6 H Direct Bilirubin 0.6 H Alkaline Phosphatase 137 H Ammonia Albumin 2.7 L 09/23/19 13:59 RBC Hgb Hct RDW Plt Count VBG pH VBG pCO2 Sodium BUN Est GFR (MDRD) Non-Af Glucose Total Bilirubin Direct Bilirubin Alkaline Phosphatase Ammonia 96.6 H Albumin - EKG Interpretation by Me Additional EKG results interpreted by me: 09/23/19 15:29 EKG shows sinus rhythm at a rate of 77, left axis deviation, borderline prolonged QT interval with a QT corrected of 499, normal R wave progression, no ST segment elevations or depressions, T wave flattening in lead III per my interpretation. Discharge - Discharge Clinical Impression: Hepatic encephalopathy, Hyperammonemia Condition: Fair Disposition: ADMITTED INPATIENT Admitting Provider: Ajay (Hospitalist) Unit Admitted: Telemetry Referrals: LACEY THOMAS MD [Primary Care Provider] - Follow up as needed
--- NOTE | 2019-09-23 15:02 | RADIOLOGY REPORT (SQ) ---
EXAM DESCRIPTION: ACUTE ABDOMEN SERIES IMAGES COMPLETED DATE/TIME: 09/23/2019 2:46 pm REASON FOR STUDY: vomiting, possible SBO COMPARISON: 05/25/2019 NUMBER OF VIEWS: Three views. TECHNIQUE: Frontal chest, supine abdomen and upright/decubitus abdomen radiographic images acquired. LIMITATIONS: None. FINDINGS: CHEST: Small bilateral pleural effusions. Cardiomegaly. Cannot exclude airspace disease in each lung base, atelectasis versus pneumonia. FREE AIR: None. No abnormal gas collections. BOWEL GAS PATTERN: Nonobstructive pattern. No dilated loops or air fluid levels. CALCIFICATIONS: No suspicious calcifications. HARDWARE: TIPS shunt remains in place SOFT TISSUES: No gross mass or suggestion of organomegaly. BONES: No acute fracture. No worrisome bone lesions. OTHER: No other significant finding. IMPRESSION: NO RADIOGRAPHIC EVIDENCE FOR ACUTE ABDOMINAL DISEASE. TECHNICAL DOCUMENTATION: JOB ID: [id number] [address]- All Rights Reserved Reading location - IP/workstation name: [email or web address]
[2019-09-23] MEDS ORDERED: LACTULOSE SYRUP 20 GM/30 ML UDCUP PR ONE (15:11)
[2019-09-23] MEDS ORDERED: NORMAL SALINE 1000 ML 1,000 ML IV PRN (18:08)
[2019-09-23] MEDS ORDERED: GLUCAGON,HUMAN RECOMB 1 MG INJ SUBCUT PRN (18:08)
[2019-09-23] MEDS ORDERED: IPRATROPIUM/ALBUTEROL 0.5-2.5 MG/3 ML AMPUL NEB PRN (18:08)
[2019-09-23] MEDS ORDERED: DEXTROSE 50%-WATER 25 GM/50 ML DISP.SYRIN IV PRN ×2 (18:08)
[2019-09-23] MEDS ORDERED: DEXTROSE 40% GEL 15 GM TUBE PO PRN ×2 (18:08)
--- NOTE | 2019-09-23 18:25 | PDOC H&P ---
History of Present Illness Admission Date/PCP: 09/23/19 16:10 LACEY THOMAS MD Patient complains of: Altered mental status History of Present Illness: MAURA CHRIS is a 69 year old female with history of primary biliary cirrhosis, hepatic hydrothorax, recurrent hepatic encephalopathy, portal hypertension, severe pulmonary hypertension, presents to the hospital from home after being found to become unresponsive. Patient see his primary taking care of by her who reports to the ER staff that patient has been gradually getting more more confused and today she was found to be encephalopathic barely responding only to noxious stimulus. States he had tried to give her more for lactulose yesterday but did not help. In the ER patient is found to be with GCS score of 9 per Initial ER provider and placed on lactulose enema. Past Medical History Cardiac Medical History: Reports: Congestive Heart Failure, Hypertension Pulmonary Medical History: Reports: Chronic Obstructive Pulmonary Disease (COPD) Endocrine Medical History: Reports: Diabetes Mellitus Type 1, Diabetes Mellitus Type 2, Hypothyroidism GI Medical History: Reports: Cirrhosis, Gastroesophageal Reflux Disease Musculoskeltal Medical History: Reports: Arthritis Psychiatric Medical History: Denies: Depression Hematology: Reports: Anemia Past Surgical History Past Surgical History: Reports: Section - x2, Cholecystectomy, Herniorrhaphy, Hysterectomy, Orthopedic Surgery, Other - Tips procedure Social History Smoking Status: Never Smoker Frequency of Alcohol Use: None Hx Recreational Drug Use: Yes Drugs: None Hx Prescription Drug Abuse: No Family History Family History: COPD Parental Family History Reviewed: No - Unable to obtain due to mental status Children Family History Reviewed: Unknown Sibling(s) Family History Reviewed.: Unknown Medication/Allergy Home Medications: Pantoprazole Sodium [Protonix [address] Tablet] 40 mg PO QAM 03/14/19 Levothyroxine Sodium 150 mcg PO Q6AM 30 Days 04/26/19 Midodrine HCl [Proamatine 5 mg Tablet] 10 mg PO TID 30 Days tablet 04/26/19 Ursodiol [Actigall 300 mg Capsule] 300 mg PO Q12 30 Days 04/26/19 Cyanocobalamin (Vitamin B-12) [Vitamin B-12 1000 mcg Tablet] 1,000 mcg PO DAILY 05/25/19 Ferrous Sulfate [Feosol 325 mg Tablet] 325 mg PO QAM 05/25/19 Insulin Aspart [Novolog Flexpen] 0 unit SUBCUT .SLD SCALE 05/25/19 Magnesium Oxide [Magnesium] 250 mg PO DAILY 05/25/19 Multivitamin [Tab-A-Natalia (Multiple Vitamin) Tablet] 1 tab PO DAILY 05/25/19 Sildenafil Citrate [Revatio 20 mg Tablet] 10 mg PO TID 05/25/19 Rifaximin [Xifaxan 550 mg Tablet] 550 mg PO BID 05/31/19 Lactulose [Cephulac Syrup 20 gm/30 ml Udcup] 20 gm PO QID #0 06/03/19 Amox Tr/Potassium Clavulanate [Augmentin "500" Tablet] 1 tab PO Q8 #14 tablet 08/03/19 Furosemide [Lasix 20 mg Tablet] 60 mg PO QAM #90 tablet 08/03/19 Insulin Degludec [Tresiba Flextouch U-200] 10 unit SQ QAM #0 08/03/19 Insulin Degludec [Tresiba Flextouch U-200] 10 unit SQ QHS #0 08/03/19 Megestrol Acetate [Megace Esther 400 mg/10 ml Udcup] 200 mg PO DAILY #30 udc 08/03/19 Sodium Chloride [Sodium Chloride 1 Gm Tablet] 1 gm PO DAILY #7 tablet 08/03/19 Spironolactone [Aldactone 25 mg Tablet] 50 mg PO QAM #60 tablet 08/03/19 Allergies/Adverse Reactions: No Known Allergies Allergy (Verified 07/28/19 07:38) Review of Systems ROS unobtainable: Due to mental status Physical Exam Vital Signs: Temp Pulse Resp BP Pulse Ox 97 F L 77 23 H 134/54 H 97 09/23/19 13:30 09/23/19 13:30 09/23/19 13:30 09/23/19 13:30 09/23/19 13:30 Intake & Output 09/22/19 09/23/19 09/24/19 06:59 06:59 06:59 Weight 55.2 kg General appearance: PRESENT: thin, other - Extremely lethargic. ABSENT: cooperative Head exam: PRESENT: atraumatic, normocephalic Neck exam: ABSENT: JVD Respiratory exam: PRESENT: crackles, unlabored. ABSENT: tachypnea, wheezes Cardiovascular exam: PRESENT: RRR, +S1, +S2. ABSENT: tachycardia GI/Abdominal exam: PRESENT: soft. ABSENT: rebound, rigid, tenderness Extremities exam: PRESENT: pedal edema Neurological exam: PRESENT: altered - Very lethargic not able to partake in communication conversation. ABSENT: alert, awake Psychiatric exam: ABSENT: agitated, anxious, appropriate affect Focused psych exam: ABSENT: pressured speech Skin exam: PRESENT: pallor Results Laboratory Results: 09/23/19 12:28 09/23/19 12:28 09/23/19 09/23/19 09/23/19 12:28 12:28 13:02 WBC 4.1 RBC 3.45 L Hgb 11.0 L Hct 32.1 L MCV 93 MCH 31.9 MCHC 34.2 RDW 17.9 H Plt Count 114 L Seg Neutrophils % 73.4 VBG pH VBG pCO2 VBG HCO3 VBG Base Excess Sodium 133.2 L Potassium 4.4 Chloride 98 Carbon Dioxide 29 Anion Gap 6 BUN 35 H Creatinine 1.00 Est GFR ( Amer) > 60 Glucose 221 H Lactic Acid 1.4 Calcium 8.8 Total Bilirubin 1.6 H AST 34 Alkaline Phosphatase 137 H Ammonia Total Protein 6.6 Albumin 2.7 L 09/23/19 09/23/19 09/23/19 13:59 13:59 16:50 WBC RBC Hgb Hct MCV MCH MCHC RDW Plt Count Seg Neutrophils % VBG pH 7.47 H VBG pCO2 34.9 L VBG HCO3 24.8 VBG Base Excess 1.5 Sodium Potassium Chloride Carbon Dioxide Anion Gap BUN Creatinine Est GFR ( Amer) Glucose Lactic Acid 1.0 Calcium Total Bilirubin AST Alkaline Phosphatase Ammonia 96.6 H Total Protein Albumin Impressions: Acute Abdomen Series 09/23/19 14:15 IMPRESSION: NO RADIOGRAPHIC EVIDENCE FOR ACUTE ABDOMINAL DISEASE. Assessment and Plan - Diagnosis (1) Hepatic encephalopathy Is this a current diagnosis for this admission?: Yes (2) Hyperammonemia Is this a current diagnosis for this admission?: Yes (3) Pleural effusion Is this a current diagnosis for this admission?: Yes (4) Portopulmonary hypertension Is this a current diagnosis for this admission?: Yes (5) Primary biliary cirrhosis Is this a current diagnosis for this admission?: Yes - Plan Summary Summary: Patient's altered mental status is likely secondary to hepatic encephalopathy which is similar presentation to her prior admissions for this. Does not appear that she has any focal neuro deficits as far as I can assess At this time, she is very lethargic and not able to partake in any conversation Ammonia is 96 Lactulose enema has been administered We will continue patient on lactulose enema until patient's mental status improves enough for her to take p.o. lactulose Trend ammonia Abdominal series does not show any evidence of acute abdominal abnormality and shows small bilateral pleural effusions. She does have history of recurrent hepatic hydrothorax but does not seem too bad as of now Continue oxygen supplementation for severe portal pulmonary hypertension Mildly hypothermic but this is about patient's baseline he will from prior admissions We will resume rest of meds once patient can tolerate p.o. Monitor on tele - Time Time Spent with patient: 25-34 minutes Anticipated Discharge Disposition: Home with Home Health Anticipated Discharge: within 72 hours
[2019-09-24 07:04] LABS: ABSOLUTE EOSINOPHILS # (AUTO) 0.2 10^3/uL (0.0-0.6); ABSOLUTE LYMPHOCYTES (AUTO) 0.7 10^3/uL (0.5-4.7); ABSOLUTE MONOCYTES (AUTO) 0.3 10^3/uL (0.1-1.4); ABSOLUTE NEUT (AUTO) 2.8 10^3/uL (1.7-8.2); BASOPHILS % (AUTO) 0.6 % (0-2); EOSINOPHILS % (AUTO) 4.8 % (0-6); HEMATOCRIT 30.7 % (36.0-47.0); HEMOGLOBIN 10.5 g/dL (12.0-15.5); LYMPHOCYTES % (AUTO) 16.9 % (13-45); MEAN CORPUSCULAR HEMOGLOBIN 32.2 pg (27.0-33.4); MEAN CORPUSCULAR HGB CONC 34.2 g/dL (32.0-36.0); MEAN CORPUSCULAR VOLUME 94 fl (80-97); MONOCYTES % (AUTO) 8.5 % (3-13); PLATELET COUNT 103 10^3/uL (150-450); RED BLOOD COUNT 3.26 10^6/uL (3.72-5.28); RED CELL DISTRIBUTION WIDTH 17.6 % (11.5-14.0); SEGMENTED NEUTROPHILS % (AUTO) 69.2 % (42-78); TOTAL CELLS COUNTED % (AUTO) 100 %; WHITE BLOOD COUNT 4.1 10^3/uL (4.0-10.5)
[2019-09-24 07:10] LABS: ALBUMIN 2.6 g/dL (3.5-5.0); ALKALINE PHOSPHATASE 125 U/L (38-126); ANION GAP 5 (5-19); ASPARTATE AMINO TRANSFERASE 29 U/L (14-36); BILIRUBIN,DIRECT 0.5 mg/dL (0.0-0.4); BILIRUBIN,TOTAL 1.9 mg/dL (0.2-1.3); BLOOD UREA NITROGEN 31 mg/dL (7-20); CALCIUM 8.4 mg/dL (8.4-10.2); CARBON DIOXIDE 26 mmol/L (22-30); CHLORIDE 104 mmol/L (98-107); GLUCOSE 252 mg/dL (75-110); POTASSIUM 3.9 mmol/L (3.6-5.0); TOTAL PROTEIN 6.2 g/dL (6.3-8.2)
--- NOTE | 2019-09-24 08:34 | EKG REPORT ---
SEVERITY:- BORDERLINE ECG - SINUS RHYTHM LOW VOLTAGE IN FRONTAL LEADS BORDERLINE PROLONGED QT INTERVAL : Confirmed by: Kelly Awad MD 24-Sep-2019 08:32:53
[2019-09-24] MEDS ORDERED: PANTOPRAZOLE SODIUM 40 MG VIAL IV SCH (10:00)
[2019-09-24] MEDS ORDERED: LACTULOSE SYRUP 20 GM/30 ML UDCUP PR SCH ×2 (10:00→11:00)
[2019-09-24] MEDS: SILDENAFIL CITRATE 20 MG TABLET PO SCH ×3 (11:18→17:55)
[2019-09-24] MEDS: MULTIVITAMIN TABLET PO SCH (11:20)
[2019-09-24] MEDS: MIDODRINE HCL 5 MG TABLET PO SCH ×3 (11:20→17:55)
[2019-09-24] MEDS: URSODIOL 300 MG CAPSULE PO SCH ×2 (11:21→22:59)
[2019-09-24] MEDS: RIFAXIMIN 550 MG TABLET PO SCH ×2 (11:21→17:55)
[2019-09-24] MEDS: ENOXAPARIN SODIUM INJ 40 MG/0.4 ML DISP.SYRIN SUBCUT SCH (11:32)
[2019-09-24] MEDS: CYANOCOBALAMIN (VITAMIN B-12) 1,000 MCG TABLET PO SCH (11:32)
[2019-09-24] MEDS: INSULIN LISPRO 100 UNIT/ML 3 ML VIAL SUBCUT SCH ×3 (14:04→23:00)
[2019-09-24] MEDS: LACTULOSE SYRUP 20 GM/30 ML UDCUP PO SCH ×2 (14:16→22:59)
[2019-09-24] MEDS: MAGNESIUM OXIDE 400 MG TABLET PO SCH (15:01)
--- NOTE | 2019-09-24 17:40 | PDOC PROGRESS REPORT ---
Subjective Progress Note for:: 09/24/19 Subjective:: Patient feels better today. She states that she feels like all the ammonia just left her body. States she was taking her lactulose at home. Denies fever or chills at this time. Reason For Visit: HEPATIC ENCEPHALOPATHY Physical Exam Vital Signs: Temp Pulse Resp BP Pulse Ox 97.1 F 82 16 115/46 L 96 09/24/19 14:50 09/24/19 17:17 09/24/19 17:17 09/24/19 14:50 09/24/19 17:17 Intake & Output 09/23/19 09/24/19 09/25/19 06:59 06:59 06:59 Intake Total 1000 Output Total 850 Balance -850 1000 Weight 55.2 kg 48.8 kg General appearance: PRESENT: no acute distress, cooperative Neck exam: ABSENT: JVD Respiratory exam: PRESENT: crackles - Right lung base Neurological exam: PRESENT: alert, awake, oriented to person, oriented to place, oriented to time Results Laboratory Results: 09/24/19 06:09 09/24/19 06:09 09/24/19 09/24/19 09/24/19 06:09 06:09 06:09 WBC 4.1 RBC 3.26 L Hgb 10.5 L Hct 30.7 L MCV 94 MCH 32.2 MCHC 34.2 RDW 17.6 H Plt Count 103 L Seg Neutrophils % 69.2 Sodium 135.2 L Potassium 3.9 Chloride 104 Carbon Dioxide 26 Anion Gap 5 BUN 31 H Creatinine 0.83 Est GFR ( Amer) > 60 Glucose 252 H Calcium 8.4 Magnesium 2.0 Total Bilirubin 1.9 H AST 29 Alkaline Phosphatase 125 Ammonia 42.3 H Total Protein 6.2 L Albumin 2.6 L Impressions: Acute Abdomen Series 09/23/19 14:15 IMPRESSION: NO RADIOGRAPHIC EVIDENCE FOR ACUTE ABDOMINAL DISEASE. Assessment and Plan - Diagnosis (1) Hepatic encephalopathy Is this a current diagnosis for this admission?: Yes (2) Hyperammonemia Is this a current diagnosis for this admission?: Yes (3) Pleural effusion Is this a current diagnosis for this admission?: Yes (4) Portopulmonary hypertension Is this a current diagnosis for this admission?: Yes (5) Primary biliary cirrhosis Is this a current diagnosis for this admission?: Yes - Plan Summary Summary: Patient's altered mental status is likely secondary to hepatic encephalopathy which is similar presentation to her prior admissions for this. Does not appear that she has any focal neuro deficits as far as I can assess At this time, she is very lethargic and not able to partake in any conversation Ammonia is 96 Lactulose enema has been administered We will continue patient on lactulose enema until patient's mental status improves enough for her to take p.o. lactulose Trend ammonia Abdominal series does not show any evidence of acute abdominal abnormality and shows small bilateral pleural effusions. She does have history of recurrent hepatic hydrothorax but does not seem too bad as of now Continue oxygen supplementation for severe portal pulmonary hypertension Mildly hypothermic but this is about patient's baseline he will from prior admissions We will resume rest of meds once patient can tolerate p.o. Monitor on tele 09/24/2019 Hepatic encephalopathy has improved with administration of lactulose enema yesterday. Ammonia level is also down. I will put patient on p.o. lactulose 40 mg 3 times a day. Start on a diet now that she is more awake. Continue monitoring her ammonia. Resume p.o. meds Stop IV fluids. - Time Time Spent with patient: Less than 15 minutes Anticipated Discharge Disposition: Home with Home Health Anticipated Discharge Timeframe: within 36 hours
[2019-09-24] MEDS ORDERED: INSULIN GLARGINE,HUM.REC.ANLOG 1,000 UNIT/10 ML VIAL SUBCUT SCH (18:00)
[2019-09-25] MEDS: LACTULOSE SYRUP 20 GM/30 ML UDCUP PO SCH ×3 (05:12→17:16)
[2019-09-25] MEDS: LEVOTHYROXINE SODIUM 0.1 MG TABLET PO SCH (05:13)
[2019-09-25] MEDS: LEVOTHYROXINE SODIUM 0.025 MG TABLET PO SCH (05:13)
[2019-09-25] MEDS ORDERED: LEVOTHYROXINE SODIUM 0.05 MG TABLET PO SCH (06:00)
[2019-09-25 06:23] LABS: ABSOLUTE EOSINOPHILS # (AUTO) 0.2 10^3/uL (0.0-0.6); ABSOLUTE LYMPHOCYTES (AUTO) 1.1 10^3/uL (0.5-4.7); ABSOLUTE MONOCYTES (AUTO) 0.3 10^3/uL (0.1-1.4); BASOPHILS % (AUTO) 0.5 % (0-2); EOSINOPHILS % (AUTO) 5.1 % (0-6); HEMATOCRIT 29.6 % (36.0-47.0); HEMOGLOBIN 10.3 g/dL (12.0-15.5); LYMPHOCYTES % (AUTO) 22.9 % (13-45); MEAN CORPUSCULAR HEMOGLOBIN 32.5 pg (27.0-33.4); MEAN CORPUSCULAR HGB CONC 34.7 g/dL (32.0-36.0); MEAN CORPUSCULAR VOLUME 94 fl (80-97); MONOCYTES % (AUTO) 7.5 % (3-13); PLATELET COUNT 123 10^3/uL (150-450); RED BLOOD COUNT 3.16 10^6/uL (3.72-5.28); RED CELL DISTRIBUTION WIDTH 17.8 % (11.5-14.0); TOTAL CELLS COUNTED % (AUTO) 100 %; WHITE BLOOD COUNT 4.6 10^3/uL (4.0-10.5)
[2019-09-25 06:43] LABS: ALBUMIN 2.6 g/dL (3.5-5.0); ALKALINE PHOSPHATASE 116 U/L (38-126); ANION GAP 7 (5-19); ASPARTATE AMINO TRANSFERASE 28 U/L (14-36); BILIRUBIN,DIRECT 0.4 mg/dL (0.0-0.4); BILIRUBIN,TOTAL 1.4 mg/dL (0.2-1.3); BLOOD UREA NITROGEN 29 mg/dL (7-20); CALCIUM 8.4 mg/dL (8.4-10.2); CARBON DIOXIDE 28 mmol/L (22-30); CHLORIDE 104 mmol/L (98-107); POTASSIUM 3.7 mmol/L (3.6-5.0); TOTAL PROTEIN 6.4 g/dL (6.3-8.2)
[2019-09-25 06:53] LABS: GLUCOSE 28 mg/dL (75-110)
[2019-09-25] MEDS ORDERED: FUROSEMIDE 40 MG TABLET PO SCH (08:00)
[2019-09-25] MEDS ORDERED: FUROSEMIDE 20 MG TABLET PO SCH (08:00)
[2019-09-25] MEDS: MIDODRINE HCL 5 MG TABLET PO SCH ×3 (09:13→17:15)
[2019-09-25] MEDS: SPIRONOLACTONE 25 MG TABLET PO SCH (09:13)
[2019-09-25] MEDS: MAGNESIUM OXIDE 400 MG TABLET PO SCH (09:14)
[2019-09-25] MEDS: INSULIN LISPRO 100 UNIT/ML 3 ML VIAL SUBCUT SCH ×4 (09:15→22:25)
[2019-09-25] MEDS: FERROUS SULFATE 325 MG TABLET PO SCH (09:15)
[2019-09-25] MEDS: CYANOCOBALAMIN (VITAMIN B-12) 1,000 MCG TABLET PO SCH (09:15)
[2019-09-25] MEDS: ENOXAPARIN SODIUM INJ 40 MG/0.4 ML DISP.SYRIN SUBCUT SCH (09:16)
[2019-09-25] MEDS: MULTIVITAMIN TABLET PO SCH (09:16)
[2019-09-25] MEDS: PANTOPRAZOLE SODIUM 40 MG TABLET.DR PO SCH (09:16)
[2019-09-25] MEDS: SILDENAFIL CITRATE 20 MG TABLET PO SCH ×3 (09:16→17:16)
[2019-09-25] MEDS: RIFAXIMIN 550 MG TABLET PO SCH ×2 (09:16→17:16)
[2019-09-25] MEDS: URSODIOL 300 MG CAPSULE PO SCH ×2 (09:17→22:25)
[2019-09-25] MEDS ORDERED: POTASSIUM CHLORIDE 10 MEQ TABLET.ER PO SCH (10:00)
[2019-09-25] MEDS ORDERED: LACTULOSE SYRUP 20 GM/30 ML UDCUP PR SCH (10:00)
[2019-09-25] MEDS ORDERED: LACTULOSE SYRUP 20 GM/30 ML UDCUP PO SCH (11:30)
--- NOTE | 2019-09-25 14:12 | PDOC PROGRESS REPORT ---
Subjective Progress Note for:: 09/25/19 Subjective:: Patient more drowsy today than yesterday. Seems ammonia level went back up after being put on oral lactulose. Doubled the dose. Mental status improved this afternoon. Reason For Visit: HEPATIC ENCEPHALOPATHY Physical Exam Vital Signs: Temp Pulse Resp BP Pulse Ox 97.5 F 81 14 126/55 H 94 09/25/19 12:00 09/25/19 13:29 09/25/19 13:29 09/25/19 12:00 09/25/19 13:29 Intake & Output 09/24/19 09/25/19 09/26/19 06:59 06:59 06:59 Intake Total 1370 Output Total 850 100 Balance -850 1270 Weight 55.2 kg 48.8 kg 48.8 kg General appearance: PRESENT: no acute distress, cooperative Neck exam: ABSENT: JVD Respiratory exam: PRESENT: unlabored. ABSENT: accessory muscle use, retraction, tachypnea Neurological exam: PRESENT: alert, awake Psychiatric exam: ABSENT: agitated, anxious Skin exam: PRESENT: pallor. ABSENT: jaundice Results Laboratory Results: 09/25/19 05:43 09/25/19 05:43 09/25/19 09/25/19 09/25/19 05:43 05:43 05:43 WBC 4.6 RBC 3.16 L Hgb 10.3 L Hct 29.6 L MCV 94 MCH 32.5 MCHC 34.7 RDW 17.8 H Plt Count 123 L Seg Neutrophils % 64.0 Sodium 138.5 Potassium 3.7 Chloride 104 Carbon Dioxide 28 Anion Gap 7 BUN 29 H Creatinine 1.05 Est GFR ( Amer) > 60 Glucose 28 L* Calcium 8.4 Magnesium 1.9 Total Bilirubin 1.4 H AST 28 Alkaline Phosphatase 116 Ammonia 92.4 H Total Protein 6.4 Albumin 2.6 L Impressions: Acute Abdomen Series 09/23/19 14:15 IMPRESSION: NO RADIOGRAPHIC EVIDENCE FOR ACUTE ABDOMINAL DISEASE. Assessment and Plan - Diagnosis (1) Hepatic encephalopathy Is this a current diagnosis for this admission?: Yes (2) Hyperammonemia Is this a current diagnosis for this admission?: Yes (3) Pleural effusion Is this a current diagnosis for this admission?: Yes (4) Portopulmonary hypertension Is this a current diagnosis for this admission?: Yes (5) Primary biliary cirrhosis Is this a current diagnosis for this admission?: Yes - Plan Summary Summary: Patient's altered mental status is likely secondary to hepatic encephalopathy w hich is similar presentation to her prior admissions for this. Does not appear that she has any focal neuro deficits as far as I can assess At this time, she is very lethargic and not able to partake in any conversation Ammonia is 96 Lactulose enema has been administered We will continue patient on lactulose enema until patient's mental status improves enough for her to take p.o. lactulose Trend ammonia Abdominal series does not show any evidence of acute abdominal abnormality and shows small bilateral pleural effusions. She does have history of recurrent hepatic hydrothorax but does not seem too bad as of now Continue oxygen supplementation for severe portal pulmonary hypertension Mildly hypothermic but this is about patient's baseline he will from prior admissions We will resume rest of meds once patient can tolerate p.o. Monitor on tele 09/24/2019 Hepatic encephalopathy has improved with administration of lactulose enema yesterday. Ammonia level is also down. I will put patient on p.o. lactulose 40 mg 3 times a day. Start on a diet now that she is more awake. Continue monitoring her ammonia. Resume p.o. meds Stop IV fluids. 09/25/2019 Patient's ammonia level jose miguel once again this morning after receiving oral lactulose yesterday. Lactulose enema given this morning and put her on lactulose 40 mg 4 times a day p.o Informed that patient became more alert later this morning and was comfortably sitting up and eating her food. Informed that patient has been having bowel movements this morning. We will continue to monitor. Likely need a stool softener. Continue Rifamixin Discussed plan with patient's - Time Anticipated Discharge Disposition: Home with Home Health Anticipated Discharge Timeframe: within 24 hours
[2019-09-25] MEDS ORDERED: NORMAL SALINE 1000 ML 1,000 ML IV PRN (14:13)
[2019-09-26] MEDS: LACTULOSE SYRUP 20 GM/30 ML UDCUP PO SCH ×3 (00:54→14:19)
[2019-09-26] MEDS: LEVOTHYROXINE SODIUM 0.025 MG TABLET PO SCH (05:21)
[2019-09-26] MEDS: LEVOTHYROXINE SODIUM 0.1 MG TABLET PO SCH (05:21)
[2019-09-26 06:17] LABS: ABSOLUTE EOSINOPHILS # (AUTO) 0.2 10^3/uL (0.0-0.6); ABSOLUTE LYMPHOCYTES (AUTO) 0.8 10^3/uL (0.5-4.7); ABSOLUTE MONOCYTES (AUTO) 0.3 10^3/uL (0.1-1.4); ABSOLUTE NEUT (AUTO) 2.4 10^3/uL (1.7-8.2); BASOPHILS % (AUTO) 0.7 % (0-2); HEMATOCRIT 29.6 % (36.0-47.0); HEMOGLOBIN 10.2 g/dL (12.0-15.5); LYMPHOCYTES % (AUTO) 21.9 % (13-45); MEAN CORPUSCULAR HEMOGLOBIN 32.3 pg (27.0-33.4); MEAN CORPUSCULAR HGB CONC 34.3 g/dL (32.0-36.0); MEAN CORPUSCULAR VOLUME 94 fl (80-97); MONOCYTES % (AUTO) 8.7 % (3-13); PLATELET COUNT 102 10^3/uL (150-450); RED BLOOD COUNT 3.14 10^6/uL (3.72-5.28); RED CELL DISTRIBUTION WIDTH 18.1 % (11.5-14.0); SEGMENTED NEUTROPHILS % (AUTO) 63.7 % (42-78); TOTAL CELLS COUNTED % (AUTO) 100 %; WHITE BLOOD COUNT 3.7 10^3/uL (4.0-10.5)
[2019-09-26 06:34] LABS: ALBUMIN 2.6 g/dL (3.5-5.0); ALKALINE PHOSPHATASE 128 U/L (38-126); ANION GAP 7 (5-19); ASPARTATE AMINO TRANSFERASE 33 U/L (14-36); BILIRUBIN,DIRECT 0.5 mg/dL (0.0-0.4); BILIRUBIN,TOTAL 1.6 mg/dL (0.2-1.3); BLOOD UREA NITROGEN 21 mg/dL (7-20); CALCIUM 8.1 mg/dL (8.4-10.2); CARBON DIOXIDE 26 mmol/L (22-30); CHLORIDE 104 mmol/L (98-107); GLUCOSE 118 mg/dL (75-110); POTASSIUM 3.6 mmol/L (3.6-5.0); TOTAL PROTEIN 6.4 g/dL (6.3-8.2)
[2019-09-26] MEDS: INSULIN LISPRO 100 UNIT/ML 3 ML VIAL SUBCUT SCH ×2 (08:36→11:54)
[2019-09-26] MEDS: SPIRONOLACTONE 25 MG TABLET PO SCH (09:03)
[2019-09-26] MEDS: PANTOPRAZOLE SODIUM 40 MG TABLET.DR PO SCH (09:03)
[2019-09-26] MEDS: FERROUS SULFATE 325 MG TABLET PO SCH (09:03)
[2019-09-26] MEDS: ENOXAPARIN SODIUM INJ 40 MG/0.4 ML DISP.SYRIN SUBCUT SCH (09:04)
[2019-09-26] MEDS: MAGNESIUM OXIDE 400 MG TABLET PO SCH (09:19)
[2019-09-26] MEDS: MIDODRINE HCL 5 MG TABLET PO SCH (09:19)
[2019-09-26] MEDS: MULTIVITAMIN TABLET PO SCH (09:19)
[2019-09-26] MEDS: CYANOCOBALAMIN (VITAMIN B-12) 1,000 MCG TABLET PO SCH (09:19)
[2019-09-26] MEDS: URSODIOL 300 MG CAPSULE PO SCH (09:26)
[2019-09-26] MEDS: SILDENAFIL CITRATE 20 MG TABLET PO SCH (09:26)
[2019-09-26] MEDS ORDERED: POTASSIUM CHLORIDE 20 MEQ PACKET PO SCH (10:00)
[2019-09-26] MEDS ORDERED: INSULIN GLARGINE,HUM.REC.ANLOG 1,000 UNIT/10 ML VIAL SUBCUT SCH (10:00)
[2019-09-26 12:21] VITALS: BP 126/55
--- NOTE | 2019-09-26 12:29 | PDOC DISCHARGE SUMMARY ---
Impression - Admit/DC Date/PCP Admission Date/Primary Care Provider: 09/23/19 16:10 LACYE THOMAS MD Discharge Date: 09/26/19 - Discharge Diagnosis (1) Hepatic encephalopathy Is this a current diagnosis for this admission?: Yes (2) Constipation Is this a current diagnosis for this admission?: Yes (3) Hyperammonemia Is this a current diagnosis for this admission?: Yes (4) Pleural effusion Is this a current diagnosis for this admission?: Yes (5) Portopulmonary hypertension Is this a current diagnosis for this admission?: Yes (6) Primary biliary cirrhosis Is this a current diagnosis for this admission?: Yes - Assessment Summary: Patient's altered mental status is likely secondary to hepatic encephalopathy which is similar presentation to her prior admissions for this. Does not appear that she has any focal neuro deficits as far as I can assess At this time, she is very lethargic and not able to partake in any conversation Ammonia is 96 Lactulose enema has been administered We will continue patient on lactulose enema until patient's mental status improves enough for her to take p.o. lactulose Trend ammonia Abdominal series does not show any evidence of acute abdominal abnormality and shows small bilateral pleural effusions. She does have history of recurrent hepatic hydrothorax but does not seem too bad as of now Continue oxygen supplementation for severe portal pulmonary hypertension Mildly hypothermic but this is about patient's baseline he will from prior admissions We will resume rest of meds once patient can tolerate p.o. Monitor on tele 09/24/2019 Hepatic encephalopathy has improved with administration of lactulose enema yesterday. Ammonia level is also down. I will put patient on p.o. lactulose 40 mg 3 times a day. Start on a diet now that she is more awake. Continue monitoring her ammonia. Resume p.o. meds Stop IV fluids. 09/25/2019 Patient's ammonia level jose miguel once again this morning after receiving oral lactulose yesterday. Lactulose enema given this morning and put her on lactulose 40 mg 4 times a day p.o Informed that patient became more alert later this morning and was comfortably sitting up and eating her food. Informed that patient has been having bowel movements this morning. We will continue to monitor. Likely need a stool softener. Continue Rifamixin Discussed plan with patient's - Additional Information Discharge Diet: As Tolerated Discharge Activity: Activity As Tolerated Referrals: LACEY THOMAS MD [Primary Care Provider] - Follow up as needed Prescriptions: Docusate Sodium 100 mg PO BID #60 tablet Home Medications: Pantoprazole Sodium [Protonix [address] Tablet] 40 mg PO QAM 03/14/19 Midodrine HCl [Proamatine 5 mg Tablet] 10 mg PO TID 30 Days tablet 04/26/19 Cyanocobalamin (Vitamin B-12) [Vitamin B-12 1000 mcg Tablet] 1,000 mcg PO DAILY 05/25/19 Ferrous Sulfate [Feosol 325 mg Tablet] 325 mg PO QAM 05/25/19 Insulin Aspart [Novolog Flexpen] 0 unit SUBCUT .SLD SCALE 05/25/19 Magnesium Oxide [Magnesium] 250 mg PO DAILY 05/25/19 Multivitamin [Tab-A-Natalia (Multiple Vitamin) Tablet] 1 tab PO DAILY 05/25/19 Sildenafil Citrate [Revatio 20 mg Tablet] 10 mg PO TID 05/25/19 Rifaximin [Xifaxan 550 mg Tablet] 550 mg PO BID 05/31/19 Furosemide [Lasix 20 mg Tablet] 60 mg PO QAM #90 tablet 08/03/19 Insulin Degludec [Tresiba Flextouch U-200] 18 unit SQ DAILY 09/23/19 Lactulose [Cephulac Syrup 20 gm/30 ml Udcup] 20 gm PO Q6H 09/23/19 Levothyroxine Sodium [Levo-T] 137 mcg PO DAILY 09/23/19 Potassium Chloride [Klor-Con M20] 20 meq PO DAILY 09/23/19 Spironolactone [Aldactone 25 mg Tablet] 25 mg PO QAM 09/23/19 Ursodiol [Actigall 300 mg Capsule] 300 mg PO Q12 09/23/19 Docusate Sodium 100 mg PO BID #60 tablet 09/26/19 History of Present Illiness History of Present Illness: MAURA CHRIS is a 69 year old female with history of primary biliary cirrhosis, 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 Patient see his primary taking care of by her who reports to the ER staff that patient has been gradually getting more more confused and today she was found to be encephalopathic barely responding only to noxious stimulus. States he had tried to give her more for lactulose yesterday but did not help. In the ER patient is found to be with GCS score of 9 per Initial ER provider and placed on lactulose enema. Hospital Course Hospital Course: Patient was admitted once again for treatment of hepatic encephalopathy. On presentation, she was completely altered and lethargic almost obtunded. She had an ammonia level of 96. CBC showed no evidence of leukocytosis. Hemoglobin was stable. Metabolic panel was significant for creatinine of 1, mild hyperglycemia in the 200s, hyperbilirubinemia. Patient was started on treatment for hepatic encephalopathy with IV fluid hydration as well as lactulose enema. Patient showed significant improvement after that. She required another enema after her ammonia level bumped back up to the 90s subsequently. She was later transitioned to oral lactulose yesterday which she has received 4 times a day. Of note, abdominal imaging did show evidence of constipation which likely triggered this episode of her hepatic encephalopathy. However after having adequate bowel movements, patient's ammonia level has dropped down to 19 today. Patient is awake and eating comfortably. She feels better and she is back to her baseline mental status. I have discussed patient's care with her Pancho and informed him my recommendation to start on stool softeners as well as to do 40 g of lactulose in the morning and at noon and then the other 2 doses of lactulose can be 20 g. Patient is to continue rifaximin as well. Also cautioned him to be mindful of dehydration and excessive diarrhea. She is to continue following up with her communications scientist, primary care provider and her electrical solderer. Ultimately, patient's condition is overall quite terminal and her hepatic encephalopathy may very well recur again as he has several times already this year. The only fix really for this is liver transplant for which patient was deemed not to be a candidate for due to her significantly elevated pulmonary pressures and poor functional status when she was evaluated at [facility] few months ago. Patient and have also been recommended to consider hospice/palliative care several times in the past but had declined. Physical Exam Vital Signs: Temp Pulse Resp BP Pulse Ox 97.7 F 95 16 106/57 L 91 L 09/26/19 11:45 09/26/19 11:45 09/26/19 11:45 09/26/19 11:45 09/26/19 11:45 Intake & Output 09/25/19 09/26/19 09/27/19 06:59 06:59 06:59 Intake Total 1370 380 Output Total 100 Balance 1270 380 Weight 48.8 kg 48.9 kg General appearance: PRESENT: no acute distress, cooperative, thin GI/Abdominal exam: PRESENT: soft. ABSENT: ascites, tenderness Neurological exam: PRESENT: alert, awake, oriented to person, oriented to place, oriented to time Results Laboratory Results: WBC 3.7 10^3/uL (4.0-10.5) L 09/26/19 05:11 RBC 3.14 10^6/uL (3.72-5.28) L 09/26/19 05:11 Hgb 10.2 g/dL (12.0-15.5) L 09/26/19 05:11 Hct 29.6 % (36.0-47.0) L 09/26/19 05:11 MCV 94 fl (80-97) 09/26/19 05:11 MCH 32.3 pg (27.0-33.4) 09/26/19 05:11 MCHC 34.3 g/dL (32.0-36.0) 09/26/19 05:11 RDW 18.1 % (11.5-14.0) H 09/26/19 05:11 Plt Count 102 10^3/uL (150-450) L 09/26/19 05:11 Lymph % (Auto) 21.9 % (13-45) 09/26/19 05:11 Sawyer % (Auto) 8.7 % (3-13) 09/26/19 05:11 Eos % (Auto) 5.0 % (0-6) 09/26/19 05:11 Baso % (Auto) 0.7 % (0-2) 09/26/19 05:11 Absolute Neuts (auto) 2.4 10^3/uL (1.7-8.2) 09/26/19 05:11 Absolute Lymphs (auto) 0.8 10^3/uL (0.5-4.7) 09/26/19 05:11 Absolute Monos (auto) 0.3 10^3/uL (0.1-1.4) 09/26/19 05:11 Absolute Eos (auto) 0.2 10^3/uL (0.0-0.6) 09/26/19 05:11 Absolute Basos (auto) 0.0 10^3/uL (0.0-0.2) 09/26/19 05:11 Seg Neutrophils % 63.7 % (42-78) 09/26/19 05:11 PT 15.0 SEC (11.4-15.4) 09/23/19 12:28 INR 1.17 09/23/19 12:28 VBG pH 7.47 (7.30-7.42) H 09/23/19 13:59 VBG pCO2 34.9 mmHg (35-63) L 09/23/19 13:59 VBG HCO3 24.8 mmol/L (20-32) 09/23/19 13:59 VBG Base Excess 1.5 mmol/L 09/23/19 13:59 Sodium 137.4 mmol/L (137-145) 09/26/19 05:11 Potassium 3.6 mmol/L (3.6-5.0) 09/26/19 05:11 Chloride 104 mmol/L (98-107) 09/26/19 05:11 Carbon Dioxide 26 mmol/L (22-30) 09/26/19 05:11 Anion Gap 7 (5-19) 09/26/19 05:11 BUN 21 mg/dL (7-20) H 09/26/19 05:11 Creatinine 0.79 mg/dL (0.52-1.25) 09/26/19 05:11 Est GFR ( Amer) > 60 (>60) 09/26/19 05:11 Est GFR (MDRD) Non-Af > 60 (>60) 09/26/19 05:11 Glucose 118 mg/dL (75-110) H 09/26/19 05:11 POC Glucose 366 mg/dL (70-110) H 09/26/19 11:47 Lactic Acid 1.0 mmol/L (0.7-2.1) 09/23/19 16:50 Calcium 8.1 mg/dL (8.4-10.2) L 09/26/19 05:11 Magnesium 1.7 mg/dL (1.6-2.3) 09/26/19 05:11 Total Bilirubin 1.6 mg/dL (0.2-1.3) H 09/26/19 05:11 Direct Bilirubin 0.5 mg/dL (0.0-0.4) H 09/26/19 05:11 Neonat Total Bilirubin Not Reportable 09/26/19 05:11 Neonat Direct Bilirubin Not Reportable 09/26/19 05:11 Neonat Indirect Bili Not Reportable 09/26/19 05:11 AST 33 U/L (14-36) 09/26/19 05:11 ALT 16 U/L (<35) 09/26/19 05:11 Alkaline Phosphatase 128 U/L (38-126) H 09/26/19 05:11 Ammonia 16.4 umol/L (9-33) 09/26/19 06:18 Total Protein 6.4 g/dL (6.3-8.2) 09/26/19 05:11 Albumin 2.6 g/dL (3.5-5.0) L 09/26/19 05:11 Impressions: Acute Abdomen Series 09/23/19 14:15 IMPRESSION: NO RADIOGRAPHIC EVIDENCE FOR ACUTE ABDOMINAL DISEASE. Plan Time Spent: Less than 30 Minutes Stroke Is this a Stroke Patient?: No Acute Heart Failure - Is this a Heart Failure Patient?: Yes Documentation of LVEF assessment?: Yes LVEF: LVEF Greater Than 40% Anticoagulant Therapy: N/A
[2019-09-26] MEDS: RIFAXIMIN 550 MG TABLET PO SCH (13:38)
== END 2019-09-26 14:15 | disposition home health service (06) | DRG 442 ==
LOC: ER 12:51 → EH 16:10 → 4N 09-24 14:48
PROVIDERS: ADMIT Internal Medicine; ATTEND Internal Medicine
DX: K72.90 Hepatic failure, unspecified without coma (principal); K76.6 Portal hypertension; E72.4 Disorders of ornithine metabolism; J94.8 Other specified pleural conditions; J91.8 Pleural effusion in other conditions classified elsewhere; K74.3 Primary biliary cirrhosis; I27.29 Other secondary pulmonary hypertension; I11.0 Hypertensive heart disease with heart failure; K59.00 Constipation, unspecified; I50.9 Heart failure, unspecified; J44.9 Chronic obstructive pulmonary disease, unspecified; E11.9 Type 2 diabetes mellitus without complications; K21.9 Gastro-esophageal reflux disease without esophagitis; M19.90 Unspecified osteoarthritis, unspecified site; D64.9 Anemia, unspecified; Z90.49 Acquired absence of other specified parts of digestive tract; Z79.4 Long term (current) use of insulin; Z79.899 Other long term (current) drug therapy
CPT/HCPCS: 36415; 74022; 80053; 82140; 82803; 82962; 83605; 83735; 85025; 85610; 87040; 93005; 93010; 99285; A9270-GY; C9113; J1815; J3490; J7030

== ENCOUNTER → 2019-10-14 | Outpatient (CLI) | payer MEDICARE ==
[2019-10-14 15:31] LABS: ANION GAP 7 (5-19); BLOOD UREA NITROGEN 30 mg/dL (7-20); CALCIUM 8.5 mg/dL (8.4-10.2); CARBON DIOXIDE 29 mmol/L (22-30); CHLORIDE 102 mmol/L (98-107); GLUCOSE 187 mg/dL (75-110); POTASSIUM 3.7 mmol/L (3.6-5.0)
== END ==
LOC: OD 14:22
PROVIDERS: ATTEND Family Medicine Geriatric Medicine
DX: K74.69 Other cirrhosis of liver (principal); K72.90 Hepatic failure, unspecified without coma; D69.6 Thrombocytopenia, unspecified; Z79.899 Other long term (current) drug therapy
CPT/HCPCS: 36415; 80048; 82140; 84443

== ENCOUNTER → 2019-10-27 | Outpatient (CLI) | payer MEDICARE ==
[2019-10-27 13:47] LABS: ARTERIAL BLOOD BASE EXCESS 5.4 mmol/L; ARTERIAL BLOOD H2CO3 1.38 mmol/L (1.05-1.35); ARTERIAL BLOOD HCO3 30.3 mmol/L (20-24); ARTERIAL BLOOD O2 SATURATION 96.6 % (94-98); ARTERIAL BLOOD PH 7.44 (7.35-7.45); ARTERIAL BLOOD PO2 84.6 mmHg (80-100); ARTERIAL BLOOD TOTAL CO2 31.7 mmol/L (21-25)
[2019-10-27 13:48] LABS: ARTERIAL BLOOD FIO2 2L
[2019-10-28 09:22] LABS: FREE THYROXINE INDEX 1.9 (1.2-4.9)
== END ==
LOC: OD 12:52
PROVIDERS: ATTEND Internal Medicine Pulmonary Disease
DX: E03.9 Hypothyroidism, unspecified (principal); J96.11 Chronic respiratory failure with hypoxia
CPT/HCPCS: 82140; 82803; 84436; 84443; 84479

== ENCOUNTER → 2019-11-05 | Outpatient (CLI) | payer MEDICARE | LOC: OD 14:58 | PROVIDERS: ATTEND Family Medicine Geriatric Medicine | DX: Z79.899 Other long term (current) drug therapy (principal) | CPT/HCPCS: 36415; 82140 ==

== ENCOUNTER → 2019-11-12 | Outpatient (CLI) | payer MEDICARE | LOC: OD 15:24 | PROVIDERS: ATTEND Family Medicine Geriatric Medicine | DX: Z51.81 Encounter for therapeutic drug level monitoring (principal); Z79.899 Other long term (current) drug therapy | CPT/HCPCS: 36415; 82140 ==

== ENCOUNTER → 2019-12-02 | Outpatient (CLI) | payer MEDICARE | LOC: OD 07:25 | PROVIDERS: ATTEND Family Medicine Geriatric Medicine | DX: E03.9 Hypothyroidism, unspecified (principal) | CPT/HCPCS: 36415; 84443 ==

== ENCOUNTER 2020-01-28 15:21 | Observation (INO) | payer MEDICARE ==
[2020-01-28] MEDS ORDERED: LACTULOSE SYRUP 20 GM/30 ML UDCUP PO ONE (17:34)
[2020-01-28] MEDS ORDERED: RINGERS SOLUTION,LACTATED 1,000 ML IV ONE (17:36)
[2020-01-28 17:58] LABS: ALBUMIN 2.7 g/dL (3.5-5.0); ALKALINE PHOSPHATASE 149 U/L (38-126); ANION GAP 6 (5-19); ASPARTATE AMINO TRANSFERASE 24 U/L (14-36); BILIRUBIN,DIRECT 0.5 mg/dL (0.0-0.4); BILIRUBIN,TOTAL 1.2 mg/dL (0.2-1.3); BLOOD UREA NITROGEN 32 mg/dL (7-20); CALCIUM 8.6 mg/dL (8.4-10.2); CARBON DIOXIDE 28 mmol/L (22-30); CHLORIDE 105 mmol/L (98-107); GLUCOSE 88 mg/dL (75-110); POTASSIUM 3.9 mmol/L (3.6-5.0); TOTAL PROTEIN 6.3 g/dL (6.3-8.2)
--- NOTE | 2020-01-28 18:32 | ER Document Report ---
Entered by EBONY KARIMI SCRIBE 01/28/20 3761 Acting as scribe for:IZAIAH LOJA DO ED General - General Chief Complaint: Altered Mental Status Stated Complaint: ALTERED MENTAL STATUS Time Seen by Provider: 01/28/20 17:06 Primary Care Provider: LACEY THOMAS MD [Primary Care Provider] - Follow up as needed Information source: Relative, [facility] Records Cannot obtain history due to: Altered mental status Notes: This 69 year old female patient presents to the emergency department today with arrival by EMS for an altered mental status. Son states patient has history of hepatic encephalopthy, is treated with lactulose, and believes patient was given lactulose last night. 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 Denies any recent fevers or covid exposure. Son states patient's hepatic encephalopathy is from liver failure due to a medication for her DM. TRAVEL OUTSIDE OF THE [place] IN LAST 30 DAYS: No - Related Data Allergies/Adverse Reactions: No Known Allergies Allergy (Verified 07/28/19 07:38) Past Medical History - General Information source: Relative, [facility] Records Cannot obtain history due to: Altered mental status - Social History Smoking Status: Unknown if Ever Smoked Chew tobacco use (# tins/day): No Frequency of alcohol use: None Drug Abuse: None Lives with: Family Family History: COPD Patient has homicidal ideation: No - Past Medical History Cardiac Medical History: Reports: Hx Congestive Heart Failure, Hx Hypertension Pulmonary Medical History: Reports: Hx COPD Endocrine Medical History: Reports: Hx Diabetes Mellitus Type 1, Hx Diabetes Mellitus Type 2, Hx Hypothyroidism GI Medical History: Reports: Hx Cirrhosis, Hx Gastroesophageal Reflux Disease Musculoskeletal Medical History: Reports Hx Arthritis Past Surgical History: Reports: Hx Abdominal Surgery - hernia repair, Hx Section - x2, Hx Cholecystectomy, Hx Herniorrhaphy, Hx Hysterectomy, Hx Orthopedic Surgery, Other - Tips procedure - Immunizations Hx Pneumococcal Vaccination: 11/26/18 Review of Systems - Review of Systems -: Yes ROS unobtainable due to patient's medical condition Constitutional: denies: Fever Neurological/Psychological: Confusion Physical Exam - Vital signs Vitals: Pulse Ox 98 01/28/20 15:26 - General Notes: Elderly and frail appearance. - HEENT Head: Normocephalic, Atraumatic Conjunctiva: Purulent discharge - Left eye Pupils: PERRL Mucous membranes: Dry - Respiratory Respiratory status: No respiratory distress Chest status: Nontender Breath sounds: Normal Chest palpation: Normal - Cardiovascular Rhythm: Regular Heart sounds: Normal auscultation Murmur: No - Abdominal Inspection: Normal, Other - soft Distension: No distension Bowel sounds: Normal Tenderness: Nontender - Extremities General upper extremity: Normal inspection. No: Edema General lower extremity: Normal inspection. No: Edema - Neurological Neuro grossly intact: Yes Cognition: Confused - Skin Skin Temperature: Warm Skin Moisture: Dry Skin Color: Normal Course - Re-evaluation Re-evalutation: 01/28/20 20:48 [facility] - Vital Signs Vital signs: Temp Pulse Resp BP Pulse Ox 97.6 F 75 20 127/71 H 100 01/28/20 20:00 01/28/20 20:00 01/28/20 23:00 01/28/20 22:01 01/28/20 23:00 - Laboratory Result Diagrams: 01/28/20 23:14 01/28/20 17:12 Laboratory results interpreted by me: 01/28/20 01/28/20 01/28/20 17:12 17:12 18:45 WBC RBC Hgb Hct MCV MCH RDW Plt Count PT BUN 32 H Est GFR ( Amer) 58 L Est GFR (MDRD) Non-Af 48 L Direct Bilirubin 0.5 H Alkaline Phosphatase 149 H C-Reactive Protein 13.0 H Albumin 2.7 L Urine Ascorbic Acid 40 H 01/28/20 01/28/20 20:30 23:14 WBC 3.5 L RBC 2.67 L Hgb 9.0 L Hct 26.7 L MCV 100 H MCH 33.6 H RDW 18.7 H Plt Count 94 L PT 15.8 H BUN Est GFR ( Amer) Est GFR (MDRD) Non-Af Direct Bilirubin Alkaline Phosphatase C-Reactive Protein Albumin Urine Ascorbic Acid - Diagnostic Test Radiology reviewed: Image reviewed, Reports reviewed - EKG Interpretation by Me EKG shows normal: Sinus rhythm Rate: Normal Rhythm: NSR - NSR NL [place] 76 BPM Repol Ab no st elevation or depression my interpretation. Discharge - Discharge Clinical Impression: Acute metabolic encephalopathy Sinusitis Qualifiers: Sinusitis location: unspecified location Chronicity: acute Recurrence: not specified as recurrent Qualified Code(s): J01.90 - Acute sinusitis, unspecified Condition: Fair Disposition: ADMITTED INPATIENT Admitting Provider: [facility] Unit Admitted: Telemetry Referrals: LACEY THOMAS MD [Primary Care Provider] - Follow up as needed I personally performed the services described in the documentation, reviewed and edited the documentation which was dictated to the scribe in my presence, and it accurately records my words and actions.
--- NOTE | 2020-01-28 18:38 | RADIOLOGY REPORT (SQ) ---
EXAM DESCRIPTION: CHEST SINGLE VIEW IMAGES COMPLETED DATE/TIME: 01/28/2020 6:29 pm REASON FOR STUDY: htn COMPARISON: 08/03/2019 EXAM PARAMETERS: NUMBER OF VIEWS: One view. TECHNIQUE: Single frontal radiographic view of the chest acquired. RADIATION DOSE: NA LIMITATIONS: None. FINDINGS: LUNGS AND PLEURA: Chronic bilateral pleural effusions. No acute infiltrate. No valerio pul monary edema. MEDIASTINUM AND HILAR STRUCTURES: No masses. Contour normal. HEART AND VASCULAR STRUCTURES: Cardiomegaly. BONES: No acute findings. HARDWARE: None in the chest. OTHER: No other significant finding. IMPRESSION: Cardiomegaly with bilateral pleural effusions but no valerio pulmonary edema. TECHNICAL DOCUMENTATION: JOB ID: [id number] 2010 [employer]- All Rights Reserved Reading location - IP/workstation name: [email or web address]
[2020-01-28 19:26] LABS: APPEARANCE,URINE CLEAR; BILIRUBIN,URINE NEGATIVE (NEGATIVE); COLOR,URINE YELLOW; GLUCOSE, URINE NEGATIVE (NEGATIVE); KETONES,URINE NEGATIVE (NEGATIVE); LEUKOCYTE ESTERASE,URINE NEGATIVE (NEGATIVE); NITRITE,URINE NEGATIVE (NEGATIVE); PROTEIN,URINE NEGATIVE (NEGATIVE); URINE SPECIFIC GRAVITY 1.014; UROBILINOGEN,URINE NEGATIVE mg/dL (<2.0)
--- NOTE | 2020-01-28 19:37 | RADIOLOGY REPORT (SQ) ---
EXAM DESCRIPTION: CT HEAD WITHOUT IMAGES COMPLETED DATE/TIME: 01/28/2020 7:20 pm REASON FOR STUDY: ams COMPARISON: 05/31/2019 TECHNIQUE: Axial images acquired through the brain without intravenous contrast. Images reviewed wi th bone, brain and subdural windows. Additional sagittal and coronal reconstructions were generated. Images stored on PACS. All CT scanners at this facility use dose modulation, iterative reconstruction, and/or weight based d osing when appropriate to reduce radiation dose to as low as reasonably achievable (ALARA). [facility]: Dose Right [facility]: CareDose [facility]: Dose Right [facility]: Teradose 4D [facility]: [employer] RADIATION DOSE: CT Rad equipment meets quality standard of care and radiation dose reduction techniq ues were employed. CTDIvol: 55.2 mGy. DLP: 974 mGy-cm. mGy. LIMITATIONS: None. FINDINGS: VENTRICLES: Normal size and contour. CEREBRUM: No masses. No hemorrhage. No midline shift. No evidence for acute infarction. Normal gra y/white matter differentiation. No areas of low density in the white matter. CEREBELLUM: No masses. No hemorrhage. No alteration of density. No evidence for acute infarction. EXTRAAXIAL SPACES: No fluid collections. No masses. ORBITS AND GLOBE: No intra- or extraconal masses. Normal contour of globe without masses. CALVARIUM: No fracture. PARANASAL SINUSES: There are marked mucoperiosteal changes in the right maxillary sinus. SOFT TISSUES: No mass or hematoma. OTHER: No other significant finding. IMPRESSION: Right maxillary sinus disease with no acute intracranial imaging findings. EVIDENCE OF ACUTE STROKE: NO. COMMENT: Quality ID # [id number]: Final reports with documentation of one or more dose reduction techniques (e.g., Automated exposure control, adjustment of the mA and/or kV according to patient size, use of iterative reconstruction technique) TECHNICAL DOCUMENTATION: JOB ID: [id number] 2010 [email or web address]- All Rights Reserved Reading location - IP/workstation name: [email or web address]
[2020-01-28] MEDS ORDERED: AMPICILLIN SOD/SULBACTAM 3 GM VIAL IV ONE (19:45)
[2020-01-28 20:28] LABS: VENOUS BLOOD BASE EXCESS 3.5 mmol/L; VENOUS BLOOD HCO3 28.7 mmol/L (20-32); VENOUS BLOOD PH 7.4 (7.30-7.42)
[2020-01-28 21:05] LABS: INTERNATIONAL RATION (INR) 1.25; PROTHROMBIN TIME 15.8 SEC (11.4-15.4)
[2020-01-28 23:25] LABS: ABSOLUTE EOSINOPHILS # (AUTO) 0.1 10^3/uL (0.0-0.6); ABSOLUTE LYMPHOCYTES (AUTO) 0.9 10^3/uL (0.5-4.7); ABSOLUTE MONOCYTES (AUTO) 0.4 10^3/uL (0.1-1.4); ABSOLUTE NEUT (AUTO) 2.1 10^3/uL (1.7-8.2); BASOPHILS % (AUTO) 0.6 % (0-2); EOSINOPHILS % (AUTO) 3.1 % (0-6); HEMATOCRIT 26.7 % (36.0-47.0); LYMPHOCYTES % (AUTO) 26.4 % (13-45); MEAN CORPUSCULAR HEMOGLOBIN 33.6 pg (27.0-33.4); MEAN CORPUSCULAR HGB CONC 33.7 g/dL (32.0-36.0); MEAN CORPUSCULAR VOLUME 100 fl (80-97); MONOCYTES % (AUTO) 10.9 % (3-13); RED BLOOD COUNT 2.67 10^6/uL (3.72-5.28); RED CELL DISTRIBUTION WIDTH 18.7 % (11.5-14.0); TOTAL CELLS COUNTED % (AUTO) 100 %; WHITE BLOOD COUNT 3.5 10^3/uL (4.0-10.5)
[2020-01-29] LABS: PLATELET COUNT 94 10^3/uL (150-450)
[2020-01-29] MEDS ORDERED: ONDANSETRON HCL INJ/PF 4 MG/2 ML SDV IV PRN (01:03)
[2020-01-29] MEDS ORDERED: DEXTROSE 5%-LACTATED RINGERS 1,000 ML IV PRN (01:03)
[2020-01-29] MEDS ORDERED: DEXTROSE 40% GEL 15 GM TUBE PO PRN ×2 (01:48)
[2020-01-29] MEDS ORDERED: GLUCAGON,HUMAN RECOMB 1 MG INJ IM PRN (01:48)
[2020-01-29] MEDS ORDERED: DEXTROSE 50%-WATER 25 GM/50 ML DISP.SYRIN IV PRN ×2 (01:48)
[2020-01-29] MEDS ORDERED: LACTULOSE SYRUP 20 GM/30 ML UDCUP PO SCH (02:00)
--- NOTE | 2020-01-29 02:43 | PDOC H&P ---
History of Present Illness Admission Date/PCP: 01/29/20 00:52 LACEY THOMAS MD Patient complains of: Altered mental status History of Present Illness: MAURA CHRIS is a 69 year old female with a history of primary biliary cirrhosis, with portal pulmonary hypertension and diabetes who is brought into the ED on account of change in her mental status. Patient is altered and incoherent, her has left and was unreachable through phone, history is from medical record and ED physician. Per ED physician report, her stated that since yesterday she has not been herself. She has been confused and was unable to recognize her . On the day of presentation patient's mental status continued to get worse and she was unable to get out of bed which is unusual for her and was brought in to the ED for further assessment and care. During exam patient continuously states " I am okay" and denies pain anywhere. Past Medical History Cardiac Medical History: Reports: Congestive Heart Failure, Hypertension Pulmonary Medical History: Reports: Chronic Obstructive Pulmonary Disease (COPD) Endocrine Medical History: Reports: Diabetes Mellitus Type 1, Diabetes Mellitus Type 2, Hypothyroidism GI Medical History: Reports: Cirrhosis, Gastroesophageal Reflux Disease Musculoskeltal Medical History: Reports: Arthritis Psychiatric Medical History: Denies: Depression Hematology: Reports: Anemia Past Surgical History Past Surgical History: Reports: Section - x2, Cholecystectomy, Herniorrhaphy, Hysterectomy, Orthopedic Surgery, Other - Tips procedure Social History Information Source: [facility], [facility] Records Lives with: Family Smoking Status: Unknown if Ever Smoked Electronic Cigarette use?: No Frequency of Alcohol Use: None Hx Recreational Drug Use: No Drugs: None Hx Prescription Drug Abuse: No - Advance Directive Resuscitation Status: Full Code Family History Family History: COPD Parental Family History Reviewed: No - Unobtainable due to altered mental status Children Family History Reviewed: No Sibling(s) Family History Reviewed.: No Medication/Allergy Home Medications: Pantoprazole Sodium [Protonix [address] Tablet] 40 mg PO QAM 03/14/19 Midodrine HCl [Proamatine 5 mg Tablet] 10 mg PO TID 30 Days tablet 04/26/19 Cyanocobalamin (Vitamin B-12) [Vitamin B-12 1000 mcg Tablet] 1,000 mcg PO DAILY 05/25/19 Ferrous Sulfate [Feosol 325 mg Tablet] 325 mg PO QAM 05/25/19 Insulin Aspart [Novolog Flexpen] 0 unit SUBCUT .SLD SCALE 05/25/19 Magnesium Oxide [Magnesium] 250 mg PO DAILY 05/25/19 Multivitamin [Tab-A-Natalia (Multiple Vitamin) Tablet] 1 tab PO DAILY 05/25/19 Sildenafil Citrate [Revatio 20 mg Tablet] 10 mg PO TID 05/25/19 Rifaximin [Xifaxan 550 mg Tablet] 550 mg PO BID 05/31/19 Furosemide [Lasix 20 mg Tablet] 60 mg PO QAM #90 tablet 08/03/19 Insulin Degludec [Tresiba Flextouch U-200] 18 unit SQ DAILY 09/23/19 Lactulose [Cephulac Syrup 20 gm/30 ml Udcup] 20 gm PO Q6H 09/23/19 Levothyroxine Sodium [Levo-T] 137 mcg PO DAILY 09/23/19 Potassium Chloride [Klor-Con M20] 20 meq PO DAILY 09/23/19 Spironolactone [Aldactone 25 mg Tablet] 25 mg PO QAM 09/23/19 Ursodiol [Actigall 300 mg Capsule] 300 mg PO Q12 09/23/19 Docusate Sodium 100 mg PO BID #60 tablet 09/26/19 Allergies/Adverse Reactions: No Known Allergies Allergy (Verified 07/28/19 07:38) Review of Systems ROS unobtainable: Due to mental status Physical Exam Vital Signs: Temp Pulse Resp BP Pulse Ox 97.5 F 75 24 H 117/59 L 100 01/29/20 01:28 01/28/20 20:00 01/29/20 01:01 01/29/20 01:01 01/29/20 01:01 Intake & Output 01/27/20 01/28/20 01/29/20 06:59 06:59 06:59 Intake Total 908 Balance 908 Weight 49.7 kg Additional comments: GENERAL APPEARANCE: Oriented to self and place only, not in acute respiratory distress HEENT: Normocephalic and atraumatic. No scleral icterus. Moist oral mucosa NECK: Supple. No lymphadenopathy or tenderness. No JVD CHEST: Symmetric. Nontender to palpation. LUNGS: Relatively decreased air entry bilaterally on lower lung grimm. No wheezing or crackles HEART: Regular rate and rhythm with normal S1 and S2. No murmurs, gallops, or rubs. ABDOMEN: Flat, soft, active bowel sounds, no direct or rebound tenderness. No organomegaly detected. No CVA tenderness EXTREMITIES: No cyanosis, clubbing, or edema. MUSCULOSKELETAL: No deformity, atrophy or swelling noted PSYCHIATRIC: Recent and remote memory is intact. Appropriate mood and affect. SKIN: Warm, dry, and well perfused. No lesions or rashes are noted. NEUROLOGIC: No focal sensory or motor deficits are noted. Has no asterixis Results Laboratory Results: 01/28/20 23:14 01/28/20 17:12 01/28/20 01/28/20 01/28/20 17:12 17:12 17:12 WBC RBC Hgb Hct MCV MCH MCHC RDW Plt Count Seg Neutrophils % VBG pH VBG pCO2 VBG HCO3 VBG Base Excess Sodium 139.1 Potassium 3.9 Chloride 105 Carbon Dioxide 28 Anion Gap 6 BUN 32 H Creatinine 1.12 Est GFR ( Amer) 58 L Glucose 88 Lactic Acid Calcium 8.6 Magnesium 2.1 Total Bilirubin 1.2 AST 24 Alkaline Phosphatase 149 H Ammonia 27.8 C-Reactive Protein 13.0 H Total Protein 6.3 Albumin 2.7 L TSH Urine Color Urine Appearance Urine pH Ur Specific [place] Urine Protein Urine Glucose (UA) Urine Ketones Urine Blood Urine Nitrite Ur Leukocyte Esterase Urine WBC (Auto) Urine RBC (Auto) 01/28/20 01/28/20 01/28/20 17:12 18:45 19:55 WBC RBC Hgb Hct MCV MCH MCHC RDW Plt Count Seg Neutrophils % VBG pH VBG pCO2 VBG HCO3 VBG Base Excess Sodium Potassium Chloride Carbon Dioxide Anion Gap BUN Creatinine Est GFR ( Amer) Glucose Lactic Acid 1.3 Calcium Magnesium Total Bilirubin AST Alkaline Phosphatase Ammonia C-Reactive Protein Total Protein Albumin TSH 2.65 Urine Color YELLOW Urine Appearance CLEAR Urine pH 6.0 Ur Specific [place] 1.014 Urine Protein NEGATIVE Urine Glucose (UA) NEGATIVE Urine Ketones NEGATIVE Urine Blood NEGATIVE Urine Nitrite NEGATIVE Ur Leukocyte Esterase NEGATIVE Urine WBC (Auto) 1 Urine RBC (Auto) 5 01/28/20 01/28/20 01/28/20 19:55 20:30 21:15 WBC Cancelled Cancelled RBC Cancelled Cancelled Hgb Cancelled Cancelled Hct Cancelled Cancelled MCV Cancelled Cancelled MCH Cancelled Cancelled MCHC Cancelled Cancelled RDW Cancelled Cancelled Plt Count Cancelled Cancelled Seg Neutrophils % Cancelled Cancelled VBG pH 7.40 VBG pCO2 47.0 VBG HCO3 28.7 VBG Base Excess 3.5 Sodium Potassium Chloride Carbon Dioxide Anion Gap BUN Creatinine Est GFR ( Amer) Glucose Lactic Acid Calcium Magnesium Total Bilirubin AST Alkaline Phosphatase Ammonia C-Reactive Protein Total Protein Albumin TSH Urine Color Urine Appearance Urine pH Ur Specific [place] Urine Protein Urine Glucose (UA) Urine Ketones Urine Blood Urine Nitrite Ur Leukocyte Esterase Urine WBC (Auto) Urine RBC (Auto) 01/28/20 01/28/20 22:37 23:14 WBC Cancelled 3.5 L RBC Cancelled 2.67 L Hgb Cancelled 9.0 L Hct Cancelled 26.7 L MCV Cancelled 100 H MCH Cancelled 33.6 H MCHC Cancelled 33.7 RDW Cancelled 18.7 H Plt Count Cancelled 94 L Seg Neutrophils % Cancelled 59.0 VBG pH VBG pCO2 VBG HCO3 VBG Base Excess Sodium Potassium Chloride Carbon Dioxide Anion Gap BUN Creatinine Est GFR ( Amer) Glucose Lactic Acid Calcium Magnesium Total Bilirubin AST Alkaline Phosphatase Ammonia C-Reactive Protein Total Protein Albumin TSH Urine Color Urine Appearance Urine pH Ur Specific [place] Urine Protein Urine Glucose (UA) Urine Ketones Urine Blood Urine Nitrite Ur Leukocyte Esterase Urine WBC (Auto) Urine RBC (Auto) Impressions: Chest X-Ray 01/28/20 17:37 IMPRESSION: Cardiomegaly with bilateral pleural effusions but no valerio pulmonary edema. Head CT 01/28/20 18:08 IMPRESSION: Right maxillary sinus disease with no acute intracranial imaging findings. EVIDENCE OF ACUTE STROKE: NO. Assessment and Plan - Diagnosis (1) Hepatic encephalopathy Is this a current diagnosis for this admission?: Yes Plan: Patient presents with altered mental status likely secondary to hepatic encephalopathy(grade 3) Has no focal neurologic deficit, no fever, leukocytosis No clear precipitating factor is identified, H&H is around baseline, UA was negative, chest x-ray showed bilateral effusion which is not new Ammonia level was within the normal limit Started her on lactulose enema Will restart her on home her home medication when she is able to tolerate p.o. (2) Bilateral pleural effusion Is this a current diagnosis for this admission?: Yes Plan: Due to cirrhosis and resulting portal pulmonary hypertension Chest x-ray showed chronic bilateral pleural effusions. No acute infiltrates or valerio pulmonary edema Continue intranasal oxygen (3) Portopulmonary hypertension Is this a current diagnosis for this admission?: Yes Plan: Continue intranasal oxygen We will monitor for signs of fluid overload and resume sildenafil, Lasix and spironolactone soon after she tolerates p.o. (4) Primary biliary cirrhosis Is this a current diagnosis for this admission?: Yes Plan: Will resume ursodiol when she tolerates p.o. 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 Is this a current diagnosis for this admission?: Yes Plan: Random blood sugar was 88 on presentation Placed her on sliding scale insulin, Accu-Chek and hypoglycemia protocol - Time Time Spent with patient: 35 or more minutes Total Critical Time (Minutes): 45 Medications reviewed and adjusted accordingly: Yes Anticipated Discharge Disposition: Home, Self Care Anticipated Discharge Timeframe: within 72 hours - Inpatient Certification Based on my medical assessment, after consideration of the patient's comorbidities, presenting symptoms, or acuity I expect that the services needed warrant INPATIENT care.: Yes I certify that my determination is in accordance with my understanding of Medicare's requirements for reasonable and necessary INPATIENT services [42 CFR 412.3e].: Yes Medical Necessity: Significant Comorbidiites Make Outpatient Treatment Too Risky, Need Close Monitoring Due to Risk of Patient Decompensation, Risk of Complication if Not Cared For in Hospital Post Hospital Care: D/C or Transfer Summary
[2020-01-29 03:14] LABS: C DIFFICILE GDH NEGATIVE (NEGATIVE)
[2020-01-29] MEDS: LACTULOSE SYRUP 20 GM/30 ML UDCUP PR SCH ×2 (05:29→11:25)
[2020-01-29] MEDS: PANTOPRAZOLE SODIUM 40 MG TABLET.DR PO SCH (05:33)
[2020-01-29 05:57] LABS: ABSOLUTE EOSINOPHILS # (AUTO) 0.1 10^3/uL (0.0-0.6); ABSOLUTE LYMPHOCYTES (AUTO) 0.9 10^3/uL (0.5-4.7); ABSOLUTE MONOCYTES (AUTO) 0.3 10^3/uL (0.1-1.4); ABSOLUTE NEUT (AUTO) 1.9 10^3/uL (1.7-8.2); BASOPHILS % (AUTO) 0.7 % (0-2); EOSINOPHILS % (AUTO) 3.7 % (0-6); HEMATOCRIT 28.5 % (36.0-47.0); HEMOGLOBIN 9.6 g/dL (12.0-15.5); LYMPHOCYTES % (AUTO) 27.2 % (13-45); MEAN CORPUSCULAR HEMOGLOBIN 33.8 pg (27.0-33.4); MEAN CORPUSCULAR HGB CONC 33.7 g/dL (32.0-36.0); MEAN CORPUSCULAR VOLUME 100 fl (80-97); MONOCYTES % (AUTO) 10.2 % (3-13); RED BLOOD COUNT 2.84 10^6/uL (3.72-5.28); RED CELL DISTRIBUTION WIDTH 18.6 % (11.5-14.0); SEGMENTED NEUTROPHILS % (AUTO) 58.2 % (42-78); TOTAL CELLS COUNTED % (AUTO) 100 %; WHITE BLOOD COUNT 3.3 10^3/uL (4.0-10.5)
[2020-01-29] MEDS ORDERED: LEVOTHYROXINE SODIUM 0.112 MG TABLET PO SCH (06:00)
[2020-01-29 06:13] LABS: ALBUMIN 2.8 g/dL (3.5-5.0); ALKALINE PHOSPHATASE 156 U/L (38-126); ANION GAP 6 (5-19); ASPARTATE AMINO TRANSFERASE 27 U/L (14-36); BILIRUBIN,DIRECT 0.5 mg/dL (0.0-0.4); BILIRUBIN,TOTAL 1.4 mg/dL (0.2-1.3); BLOOD UREA NITROGEN 31 mg/dL (7-20); CALCIUM 8.6 mg/dL (8.4-10.2); CARBON DIOXIDE 28 mmol/L (22-30); CHLORIDE 106 mmol/L (98-107); POTASSIUM 3.7 mmol/L (3.6-5.0); TOTAL PROTEIN 6.4 g/dL (6.3-8.2)
[2020-01-29 06:38] LABS: PLATELET COUNT 97 10^3/uL (150-450)
[2020-01-29 06:41] LABS: GLUCOSE 37 mg/dL (75-110)
[2020-01-29] MEDS: INSULIN REG, HUMAN 100 UNIT/ML 3 ML VIAL (PYX) SUBCUT SCH ×4 (08:00→23:00)
[2020-01-29] MEDS ORDERED: FAMOTIDINE INJ/PF 20 MG/2 ML SDV IV SCH (10:00)
[2020-01-29] MEDS: ENOXAPARIN SODIUM INJ 40 MG/0.4 ML DISP.SYRIN SUBCUT SCH (10:34)
--- NOTE | 2020-01-29 13:58 | PDOC PROGRESS REPORT ---
Subjective Date:: 01/29/20 Subjective:: MAURA CHRIS is a 69 year old female with a history of primary biliary cirrhosis, with portal pulmonary hypertension and diabetes who was admitted 01/29/2020 with altered mental status, presumed to be acute hepatic encephalopathy. The patient was seen on morning rounds. Her joined us later during our conversation. She is alert and oriented x4, though with delayed/sluggish responses. She is able to carry on a conversation and complete complex thoughts/statements. She does occasionally appear slightly inattentive but otherwise has no signs of altered mental status at this time. The patient's states that he noted she began having rhythmic movements of her right hand and frequent biting of her right lip/tongue prior to her decreased alertness. They both deny history of seizure disorder. Patient currently denies all symptoms; specifically fever, pain, chest pain, dyspnea, cough, abdominal pain, nausea vomiting diarrhea. reports she is near baseline mentation. Exam no questions or concerns at this time. No concerns per nursing. Reason For Visit: HEPATIC ENCEPHALOPATHY Physical Exam Vital Signs: Temp Pulse Resp BP Pulse Ox 98.1 F 86 18 128/57 H 96 01/29/20 10:00 01/29/20 07:52 01/29/20 07:52 01/29/20 07:52 01/29/20 07:52 Intake & Output 01/28/20 01/29/20 01/30/20 06:59 06:59 06:59 Intake Total 1200 240 Balance 1200 240 Weight 49.7 kg General appearance: PRESENT: no acute distress, cooperative, disheveled, thin, well-developed Head exam: PRESENT: atraumatic, normocephalic Eye exam: PRESENT: conjunctiva pink, EOMI, PERRLA. ABSENT: scleral icterus Mouth exam: PRESENT: moist, tongue midline, other - Dry/cracked lips Teeth exam: PRESENT: dental caries, poor dentation Neck exam: ABSENT: carotid bruit, JVD, lymphadenopathy, thyromegaly Respiratory exam: PRESENT: clear to auscultation josh, symmetrical, unlabored, other - Room air. ABSENT: rales, rhonchi, wheezes Cardiovascular exam: PRESENT: RRR. ABSENT: diastolic murmur, rubs, systolic murmur Pulses: PRESENT: normal dorsalis pedis pul Vascular exam: PRESENT: normal capillary refill GI/Abdominal exam: PRESENT: normal bowel sounds, soft. ABSENT: distended, guarding, mass, organolmegaly, rebound, tenderness Rectal exam: PRESENT: deferred Extremities exam: PRESENT: full ROM. ABSENT: calf tenderness, clubbing, pedal edema Neurological exam: PRESENT: alert, awake, oriented to person, oriented to place, oriented to time, oriented to situation, CN II-XII grossly intact, other - Delayed/sluggish responses.. ABSENT: motor sensory deficit Psychiatric exam: PRESENT: appropriate affect, normal mood. ABSENT: homicidal ideation, suicidal ideation Skin exam: PRESENT: dry, intact, pallor, warm, other - Scattered ecchymosis all extremities and right cheek; skin turgor is poor, appears clinically dehydrated. ABSENT: cyanosis, rash Results Laboratory Results: 01/29/20 05:20 01/29/20 05:20 01/28/20 01/28/20 01/28/20 17:12 17:12 17:12 WBC RBC Hgb Hct MCV MCH MCHC RDW Plt Count Seg Neutrophils % VBG pH VBG pCO2 VBG HCO3 VBG Base Excess Sodium 139.1 Potassium 3.9 Chloride 105 Carbon Dioxide 28 Anion Gap 6 BUN 32 H Creatinine 1.12 Est GFR ( Amer) 58 L Glucose 88 Lactic Acid Calcium 8.6 Magnesium 2.1 Total Bilirubin 1.2 AST 24 Alkaline Phosphatase 149 H Ammonia 27.8 C-Reactive Protein 13.0 H Total Protein 6.3 Albumin 2.7 L TSH Urine Color Urine Appearance Urine pH Ur Specific [place] Urine Protein Urine Glucose (UA) Urine Ketones Urine Blood Urine Nitrite Ur Leukocyte Esterase Urine WBC (Auto) Urine RBC (Auto) 01/28/20 01/28/20 01/28/20 17:12 18:45 19:55 WBC RBC Hgb Hct MCV MCH MCHC RDW Plt Count Seg Neutrophils % VBG pH VBG pCO2 VBG HCO3 VBG Base Excess Sodium Potassium Chloride Carbon Dioxide Anion Gap BUN Creatinine Est GFR ( Amer) Glucose Lactic Acid 1.3 Calcium Magnesium Total Bilirubin AST Alkaline Phosphatase Ammonia C-Reactive Protein Total Protein Albumin TSH 2.65 Urine Color YELLOW Urine Appearance CLEAR Urine pH 6.0 Ur Specific [place] 1.014 Urine Protein NEGATIVE Urine Glucose (UA) NEGATIVE Urine Ketones NEGATIVE Urine Blood NEGATIVE Urine Nitrite NEGATIVE Ur Leukocyte Esterase NEGATIVE Urine WBC (Auto) 1 Urine RBC (Auto) 5 01/28/20 01/28/20 01/28/20 19:55 20:30 21:15 WBC Cancelled Cancelled RBC Cancelled Cancelled Hgb Cancelled Cancelled Hct Cancelled Cancelled MCV Cancelled Cancelled MCH Cancelled Cancelled MCHC Cancelled Cancelled RDW Cancelled Cancelled Plt Count Cancelled Cancelled Seg Neutrophils % Cancelled Cancelled VBG pH 7.40 VBG pCO2 47.0 VBG HCO3 28.7 VBG Base Excess 3.5 Sodium Potassium Chloride Carbon Dioxide Anion Gap BUN Creatinine Est GFR ( Amer) Glucose Lactic Acid Calcium Magnesium Total Bilirubin AST Alkaline Phosphatase Ammonia C-Reactive Protein Total Protein Albumin TSH Urine Color Urine Appearance Urine pH Ur Specific [place] Urine Protein Urine Glucose (UA) Urine Ketones Urine Blood Urine Nitrite Ur Leukocyte Esterase Urine WBC (Auto) Urine RBC (Auto) 01/28/20 01/28/20 01/29/20 22:37 23:14 05:20 WBC Cancelled 3.5 L 3.3 L RBC Cancelled 2.67 L 2.84 L Hgb Cancelled 9.0 L 9.6 L Hct Cancelled 26.7 L 28.5 L MCV Cancelled 100 H 100 H MCH Cancelled 33.6 H 33.8 H MCHC Cancelled 33.7 33.7 RDW Cancelled 18.7 H 18.6 H Plt Count Cancelled 94 L 97 L Seg Neutrophils % Cancelled 59.0 58.2 VBG pH VBG pCO2 VBG HCO3 VBG Base Excess Sodium Potassium Chloride Carbon Dioxide Anion Gap BUN Creatinine Est GFR ( Amer) Glucose Lactic Acid Calcium Magnesium Total Bilirubin AST Alkaline Phosphatase Ammonia C-Reactive Protein Total Protein Albumin TSH Urine Color Urine Appearance Urine pH Ur Specific [place] Urine Protein Urine Glucose (UA) Urine Ketones Urine Blood Urine Nitrite Ur Leukocyte Esterase Urine WBC (Auto) Urine RBC (Auto) 01/29/20 05:20 WBC RBC Hgb Hct MCV MCH MCHC RDW Plt Count Seg Neutrophils % VBG pH VBG pCO2 VBG HCO3 VBG Base Excess Sodium 140.4 Potassium 3.7 Chloride 106 Carbon Dioxide 28 Anion Gap 6 BUN 31 H Creatinine 1.00 Est GFR ( Amer) > 60 Glucose 37 L* Lactic Acid Calcium 8.6 Magnesium Total Bilirubin 1.4 H AST 27 Alkaline Phosphatase 156 H Ammonia C-Reactive Protein Total Protein 6.4 Albumin 2.8 L TSH Urine Color Urine Appearance Urine pH Ur Specific [place] Urine Protein Urine Glucose (UA) Urine Ketones Urine Blood Urine Nitrite Ur Leukocyte Esterase Urine WBC (Auto) Urine RBC (Auto) Impressions: Chest X-Ray 01/28/20 17:37 IMPRESSION: Cardiomegaly with bilateral pleural effusions but no valerio pulmonary edema. Head CT 01/28/20 18:08 IMPRESSION: Right maxillary sinus disease with no acute intracranial imaging findings. EVIDENCE OF ACUTE STROKE: NO. Assessment and Plan - Diagnosis (1) Hepatic encephalopathy Is this a current diagnosis for this admission?: Yes Plan: Patient presents with altered mental status likely secondary to hepatic encephalopathy(grade 3) Has no focal neurologic deficit, no fever, leukocytosis No clear precipitating factor is identified, H&H is around baseline, UA was negative, chest x-ray showed bilateral effusion which is not new Ammonia level was within the normal limit EEG pending. Patient is admitted to medical floor. She is now awake oriented to her baseline. Tolerated p.o. intake. We will resume home dose medications with the exception of spironolactone and Lasix as she does appear to be clinically dehydrated. Continue IVF. Supportive care/safety precautions. (2) Bilateral pleural effusion Is this a current diagnosis for this admission?: Yes Plan: Due to cirrhosis and resulting portal pulmonary hypertension Chest x-ray showed chronic bilateral pleural effusions. 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 (5) Primary biliary cirrhosis Is this a current diagnosis for this admission?: Yes Plan: Will resume ursodiol when she tolerates p.o. (6) Advance care planning Is this a current diagnosis for this admission?: Yes Plan: Patient has been present. Discussed her chronic liver failure and disease progression. Advised that she was reaching the limitations of what medicine could offer; at this time we are only able to provide interventions to delay the progression but ultimately she will succumb to her disease. We discussed that as her disease progresses, she will likely experience frequent episodes of altered mentation that will eventually become uncorrectable. Discussed goals of care. Reviewed Palliative care in detail. Patient defers all answers to her . He declines Palliative Care; states they have used them in the past and did not find them helpful. No interest in hospice. Patient to remain FULL CODE. >20 min spent on ACP discussion (7) Dehydration Is this a current diagnosis for this admission?: Yes Plan: Continue IVF Encourage p.o fluids Strict I&Os - Time Time Spent with patient: 35 or more minutes Medications reviewed and adjusted accordingly: Yes Anticipated Discharge Disposition: Home, Self Care Anticipated Discharge Timeframe: within 24 hours
[2020-01-29] MEDS: MIDODRINE HCL 5 MG TABLET PO SCH ×2 (16:14→17:03)
[2020-01-29] MEDS: LACTULOSE SYRUP 20 GM/30 ML UDCUP PO SCH ×3 (16:14→22:59)
[2020-01-29] MEDS: SILDENAFIL CITRATE 20 MG TABLET PO SCH ×2 (16:15→17:08)
[2020-01-29] MEDS: NORMAL SALINE 1000 ML 1,000 ML IV PRN (16:42)
[2020-01-29] MEDS: URSODIOL 300 MG CAPSULE PO SCH (17:04)
[2020-01-29] MEDS: RIFAXIMIN 550 MG TABLET PO SCH (17:09)
--- NOTE | 2020-01-29 17:44 | EKG REPORT ---
SEVERITY:- BORDERLINE ECG - SINUS RHYTHM LOW VOLTAGE IN FRONTAL LEADS BORDERLINE PROLONGED QT INTERVAL : Confirmed by: Syed Delgado MD 29-Jan-2020 17:44:08
[2020-01-29] MEDS ORDERED: INSULIN DEGLUDEC 200 UNIT/ML SUBCUT SCH (18:00)
[2020-01-29] MEDS ORDERED: INSULN SUBCUT SCH (18:00)
[2020-01-29] MEDS ORDERED: [UNRECOGNIZED DRUG - OTHER] SUBCUT SCH (18:00)
--- NOTE | 2020-01-29 19:08 | NEURO WORKBENCH EEG REPORT ---
EEG Report Patient: Freda Pastor ID: [id number] Referring Doctor: Edelmira Ponce DOS: 01/29/2020 Medications: lovenox, pyxis, lactulose, synthroid, midodrine, protonix, rifaximin, refatio, actigall, zinc History This is a 69 year old right handed female with a history of CHF, hypertension, COPD, GERD, hernia repair, arthritis, type 2 diabetes, anemia, cirrhosis, hypothyroidism who was admitted with sinusitis and acute metabolic encephalopathy. noted seizure-like activity. This EEG was requested for evaluation of seizures. EEG Interpretation This EEG was recorded without a clear state but with the patient having closed eyes that were passively opened. The EEG is characterized by a disorganized background without a well-developed posterior dominant rhythm but a noted posterior rhythm of 5 Hz. The remainder of the background was characterized by a combination of theta and delta frequencies. Photic stimulation resulted in no significant changes. There were no epileptiform abnormalities. The EKG showed a regular rhythm with artifact that impaired interpretation. EEG Classification * Generalized background slowing * Disorganization EEG Impression This EEG is abnormal. It is consistent with nonspecific diffuse cerebral dysfunction. There were no epileptiform abnormalities noted. INTERPRETING NEUROLOGIST: Harriet Brice MD, FRCPC Board Certified in Neurology, with special qualification in Child Neurology, and in Clinical Neurophysiology [facility]
[2020-01-30] MEDS: NORMAL SALINE 1000 ML 1,000 ML IV PRN (03:37)
[2020-01-30] MEDS: PANTOPRAZOLE SODIUM 40 MG TABLET.DR PO SCH (05:39)
[2020-01-30 05:57] LABS: HEMATOCRIT 25.3 % (36.0-47.0); HEMOGLOBIN 8.6 g/dL (12.0-15.5); MEAN CORPUSCULAR HEMOGLOBIN 34.3 pg (27.0-33.4); MEAN CORPUSCULAR VOLUME 101 fl (80-97); RED BLOOD COUNT 2.51 10^6/uL (3.72-5.28); RED CELL DISTRIBUTION WIDTH 18.1 % (11.5-14.0); WHITE BLOOD COUNT 4.6 10^3/uL (4.0-10.5)
[2020-01-30 06:00] LABS: PROTHROMBIN TIME 15.4 SEC (11.4-15.4)
[2020-01-30] MEDS ORDERED: LEVOTHYROXINE SODIUM 0.1 MG TABLET PO SCH (06:00)
[2020-01-30] MEDS ORDERED: LEVOTHYROXINE SODIUM 0.112 MG TABLET PO SCH (06:00)
[2020-01-30] MEDS ORDERED: LEVOTHYROXINE SODIUM 0.025 MG TABLET PO SCH ×2 (06:00)
[2020-01-30 06:14] LABS: ALBUMIN 2.6 g/dL (3.5-5.0); ALKALINE PHOSPHATASE 132 U/L (38-126); ANION GAP 6 (5-19); ASPARTATE AMINO TRANSFERASE 24 U/L (14-36); BILIRUBIN,DIRECT 0.5 mg/dL (0.0-0.4); BILIRUBIN,TOTAL 1.3 mg/dL (0.2-1.3); BLOOD UREA NITROGEN 28 mg/dL (7-20); CALCIUM 7.9 mg/dL (8.4-10.2); CARBON DIOXIDE 26 mmol/L (22-30); CHLORIDE 107 mmol/L (98-107); POTASSIUM 3.9 mmol/L (3.6-5.0); TOTAL PROTEIN 6.1 g/dL (6.3-8.2)
[2020-01-30 06:23] LABS: PLATELET COUNT 95 10^3/uL (150-450)
[2020-01-30 06:32] LABS: GLUCOSE 29 mg/dL (75-110)
[2020-01-30] MEDS ORDERED: DEXTROSE 5%-NORMAL SALINE 1,000 ML IV PRN (08:01)
[2020-01-30] MEDS: INSULIN REG, HUMAN 100 UNIT/ML 3 ML VIAL (PYX) SUBCUT SCH ×4 (08:23→21:54)
[2020-01-30] MEDS: LEVOTHYROXINE SODIUM 0.112 MG TABLET PO SCH (09:29)
[2020-01-30] MEDS: ZINC SULFATE 220 MG CAPSULE PO SCH (09:29)
[2020-01-30] MEDS: URSODIOL 300 MG CAPSULE PO SCH ×2 (09:30→17:40)
[2020-01-30] MEDS: LACTULOSE SYRUP 20 GM/30 ML UDCUP PO SCH ×4 (09:30→21:47)
[2020-01-30] MEDS: SILDENAFIL CITRATE 20 MG TABLET PO SCH ×3 (09:30→17:42)
[2020-01-30] MEDS: RIFAXIMIN 550 MG TABLET PO SCH ×2 (09:30→17:35)
[2020-01-30] MEDS: MIDODRINE HCL 5 MG TABLET PO SCH ×3 (09:30→17:41)
[2020-01-30] MEDS: ENOXAPARIN SODIUM INJ 40 MG/0.4 ML DISP.SYRIN SUBCUT SCH (09:31)
[2020-01-30] MEDS ORDERED: LEVOTHYROXINE SODIUM 137 MCG PO SCH (10:00)
[2020-01-30] MEDS ORDERED: INFLUENZA QUAD (6MOS+) 2020-21 VAC 0.5 ML SYR IM ONE (13:00)
[2020-01-30] MEDS ORDERED: NORMAL SALINE 1000 ML 1,000 ML IV PRN (13:02)
--- NOTE | 2020-01-30 13:22 | PDOC PROGRESS REPORT ---
Subjective Date:: 01/30/20 Subjective:: MAURA CHRIS is a 69 year old female with a history of primary biliary cirrhosis, with portal pulmonary hypertension and diabetes who was admitted 01/29/2020 with altered mental status, presumed to be acute hepatic encephalopathy. The patient was seen on morning rounds. She was sleeping, but woke easily when I said her name. She is A&Ox4, though remains delayed/sluggish responses. She remains inattentive to other but otherwise has no signs of altered mental status at this time. She denies fever, pain, chest pain, dyspnea, cough, abdominal pain, nausea vomiting diarrhea. She has no questions or concerns at this time. Nursing reports labile blood sugars, good appetite/po intake, and increased confusion this morning that has gradually improved throughout the day. Reason For Visit: HEPATIC ENCEPHALOPATHY Physical Exam Vital Signs: Temp Pulse Resp BP Pulse Ox 97.5 F 86 17 117/64 92 01/30/20 10:00 01/29/20 23:36 01/29/20 23:36 01/29/20 23:36 01/30/20 08:27 Intake & Output 01/29/20 01/30/20 01/31/20 06:59 06:59 06:59 Intake Total 1200 1940 Balance 1200 1940 Weight 49.7 kg 52.9 kg General appearance: PRESENT: no acute distress, cooperative, thin, well- developed, other - frail, chronically ill appearing Head exam: PRESENT: atraumatic, normocephalic Eye exam: PRESENT: conjunctiva pink, EOMI, PERRLA. ABSENT: scleral icterus Mouth exam: PRESENT: moist, tongue midline Teeth exam: PRESENT: dental caries, poor dentation Respiratory exam: PRESENT: clear to auscultation josh, symmetrical, unlabored, other - supplemental oxygen via NC. ABSENT: rales, rhonchi, wheezes Cardiovascular exam: PRESENT: RRR. ABSENT: diastolic murmur, rubs, systolic murmur Pulses: PRESENT: normal dorsalis pedis pul Vascular exam: PRESENT: normal capillary refill Extremities exam: PRESENT: full ROM. ABSENT: calf tenderness, clubbing, pedal edema Neurological exam: PRESENT: alert, awake, oriented to person, oriented to place, oriented to time, oriented to situation, CN II-XII grossly intact, other - sluggish response. ABSENT: motor sensory deficit Psychiatric exam: PRESENT: appropriate affect, normal mood. ABSENT: homicidal ideation, suicidal ideation Skin exam: PRESENT: dry, intact, warm, other - scattered echymosis. ABSENT: cyanosis, rash Results Laboratory Results: 01/30/20 05:25 01/30/20 05:25 01/30/20 01/30/20 05:25 05:25 WBC 4.6 RBC 2.51 L Hgb 8.6 L Hct 25.3 L MCV 101 H MCH 34.3 H MCHC 34.0 RDW 18.1 H Plt Count 95 L Sodium 139.2 Potassium 3.9 Chloride 107 Carbon Dioxide 26 Anion Gap 6 BUN 28 H Creatinine 0.96 Est GFR ( Amer) > 60 Glucose 29 L* Calcium 7.9 L Total Bilirubin 1.3 AST 24 Alkaline Phosphatase 132 H Total Protein 6.1 L Albumin 2.6 L Impressions: Chest X-Ray 01/28/20 17:37 IMPRESSION: Cardiomegaly with bilateral pleural effusions but no valerio pulmonary edema. Head CT 01/28/20 18:08 IMPRESSION: Right maxillary sinus disease with no acute intracranial imaging findings. EVIDENCE OF ACUTE STROKE: NO. Assessment and Plan - Diagnosis (1) Hepatic encephalopathy Is this a current diagnosis for this admission?: Yes Plan: Patient presents with altered mental status likely secondary to hepatic encephalopathy(grade 3); though with multiple episodes of hypoglycemia which could certainly have precipitated her AMS. Has no focal neurologic deficit, no fever, leukocytosis No clear precipitating factor is identified, H&H is around baseline, UA was negative, chest x-ray showed bilateral effusion which is not new Ammonia level was within the normal limit EEG reveals global slowing but no evidence of seizure like activity. Patient is admitted to medical floor. She is now awake oriented to her baseline. Tolerated p.o. intake. We will resume home dose medications with the exception of spironolactone and Lasix as she does appear to be clinically dehydrated. Continue IVF. Supportive care/safety precautions. (2) Hypoglycemic encephalopathy Is this a current diagnosis for this admission?: Yes Plan: Improved. Contributing to underlying hepatic encephalopathy. Close monitoring w/ accuchecks and hypoglycemia protocol in place. Supportive care. (3) Bilateral pleural effusion Is this a current diagnosis for this admission?: Yes Plan: Due to cirrhosis and resulting portal pulmonary hypertension Chest x-ray showed chronic bilateral pleural effusions. 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 Patient with multiple episodes of hypoglycemia. Given her age, end-stage liver disease, and life expectancy of less than 10 years, it would be acceptable to utilize a goal A1c of less than 8.5.%. Therefore, will discontinue long-acting insulins and adjust her sliding scale dosing. Liberalize diet. Continue Accu-Cheks AC at bedtime. Hypoglycemia protocol in place. (5) Portopulmonary hypertension Is this a current diagnosis for this admission?: Yes Plan: Continue intranasal oxygen We will monitor for signs of fluid overload and resume sildenafil, Lasix and spironolactone soon after she tolerates p.o. (6) Primary biliary cirrhosis Is this a current diagnosis for this admission?: Yes Plan: Will resume ursodiol when she tolerates p.o. (7) Advance care planning Is this a current diagnosis for this admission?: Yes Plan: Patient has been present. Discussed her chronic liver failure and disease progression. Advised that she was reaching the limitations of what medicine could offer; at this time we are only able to provide interventions to delay the progression but ultimately she will succumb to her disease. We discussed that as her disease progresses, she will likely experience frequent episodes of altered mentation that will eventually become uncorrectable. Discussed goals of care. Reviewed Palliative care in detail. Patient defers all answers to her . He declines Palliative Care; states they have used them in the past and did not find them helpful. No interest in hospice. Patient to remain FULL CODE. >20 min spent on ACP discussion (8) Dehydration Is this a current diagnosis for this admission?: Yes Plan: Improved; now with moist mucous membranes and improved skin appearance. BUN has decreased. Weight up ~3 kg. Will continue gentle IVF Encourage p.o fluids Strict I&Os - Time Time Spent with patient: 25-34 minutes Medications reviewed and adjusted accordingly: Yes Anticipated Discharge Disposition: Home with Home Health Anticipated Discharge Timeframe: within 24 hours - pending glucose stabilization
--- NOTE | 2020-01-30 17:56 | RADIOLOGY REPORT (SQ) ---
EXAM DESCRIPTION: CHEST SINGLE VIEW IMAGES COMPLETED DATE/TIME: 01/30/2020 5:33 pm REASON FOR STUDY: dyspnea COMPARISON: 01/28/2020 EXAM PARAMETERS: NUMBER OF VIEWS: One view. TECHNIQUE: Single frontal radiographic view of the chest acquired. RADIATION DOSE: NA LIMITATIONS: None. FINDINGS: LUNGS AND PLEURA: Increased bilateral pleural effusions. Cannot exclude mild pulmonary ed devonte. MEDIASTINUM AND HILAR STRUCTURES: No masses. Contour normal. HEART AND VASCULAR STRUCTURES: Cardiomegaly. BONES: No acute findings. HARDWARE: None in the chest. OTHER: No other significant finding. IMPRESSION: Cardiomegaly. Cannot exclude mild pulmonary edema. Increased bilateral pleural effusio ns. TECHNICAL DOCUMENTATION: JOB ID: [id number] [employer]- All Rights Reserved Reading location - IP/workstation name: [email or web address]
[2020-01-31 05:24] LABS: HEMATOCRIT 26.1 % (36.0-47.0); HEMOGLOBIN 8.9 g/dL (12.0-15.5); MEAN CORPUSCULAR HGB CONC 34.3 g/dL (32.0-36.0); MEAN CORPUSCULAR VOLUME 99 fl (80-97); RED BLOOD COUNT 2.63 10^6/uL (3.72-5.28); RED CELL DISTRIBUTION WIDTH 17.9 % (11.5-14.0); WHITE BLOOD COUNT 4.8 10^3/uL (4.0-10.5)
[2020-01-31 05:39] LABS: ANION GAP 8 (5-19); BLOOD UREA NITROGEN 26 mg/dL (7-20); CALCIUM 7.8 mg/dL (8.4-10.2); CARBON DIOXIDE 25 mmol/L (22-30); CHLORIDE 105 mmol/L (98-107); GLUCOSE 244 mg/dL (75-110)
[2020-01-31 05:58] LABS: PLATELET COUNT 85 10^3/uL (150-450)
[2020-01-31] MEDS: PANTOPRAZOLE SODIUM 40 MG TABLET.DR PO SCH (07:05)
[2020-01-31] MEDS: INSULIN REG, HUMAN 100 UNIT/ML 3 ML VIAL (PYX) SUBCUT SCH ×2 (07:42→11:53)
[2020-01-31] MEDS: LEVOTHYROXINE SODIUM 0.112 MG TABLET PO SCH (07:42)
[2020-01-31] MEDS: ENOXAPARIN SODIUM INJ 40 MG/0.4 ML DISP.SYRIN SUBCUT SCH (09:14)
[2020-01-31] MEDS: MIDODRINE HCL 5 MG TABLET PO SCH ×2 (09:16→14:34)
[2020-01-31] MEDS: SILDENAFIL CITRATE 20 MG TABLET PO SCH ×2 (09:16→14:33)
[2020-01-31] MEDS: LACTULOSE SYRUP 20 GM/30 ML UDCUP PO SCH ×2 (09:16→14:33)
[2020-01-31] MEDS: URSODIOL 300 MG CAPSULE PO SCH (09:16)
[2020-01-31] MEDS: ZINC SULFATE 220 MG CAPSULE PO SCH (09:16)
[2020-01-31] MEDS: RIFAXIMIN 550 MG TABLET PO SCH (09:16)
[2020-01-31] MEDS ORDERED: SPIRONOLACTONE 25 MG TABLET PO SCH (10:00)
[2020-01-31] MEDS ORDERED: FUROSEMIDE 40 MG TABLET PO SCH (10:00)
[2020-01-31] MEDS ORDERED: FUROSEMIDE 20 MG TABLET PO SCH (10:00)
[2020-01-31 14:12] VITALS: BP 100/44
--- NOTE | 2020-01-31 17:27 | PDOC DISCHARGE SUMMARY ---
Impression - Admit/DC Date/PCP Admission Date/Primary Care Provider: 01/29/20 00:52 LACEY THOMAS MD Discharge Date: 01/31/20 - Discharge Diagnosis (1) Hepatic encephalopathy Is this a current diagnosis for this admission?: Yes (2) Hypoglycemic encephalopathy Is this a current diagnosis for this admission?: Yes (3) Bilateral pleural effusion Is this a current diagnosis for this admission?: Yes (4) Diabetes mellitus Is this a current diagnosis for this admission?: Yes (5) Portopulmonary hypertension Is this a current diagnosis for this admission?: Yes (6) Primary biliary cirrhosis Is this a current diagnosis for this admission?: Yes (7) Advance care planning Is this a current diagnosis for this admission?: Yes (8) Dehydration Is this a current diagnosis for this admission?: Yes - Additional Information Resuscitation Status: Full Code Discharge Diet: As Tolerated, Regular Discharge Activity: Activity As Tolerated, Balance Activity w/Rest Referrals: LACEY THOMAS MD [Primary Care Provider] - (Follow up within 1 week.) Home Medications: Pantoprazole Sodium [Protonix [address] Tablet] 40 mg PO QAM 03/14/19 Sildenafil Citrate [Revatio 20 mg Tablet] 10 mg PO TID 05/25/19 Rifaximin [Xifaxan 550 mg Tablet] 550 mg PO BID 05/31/19 Lactulose [Cephulac Syrup 20 gm/30 ml Udcup] 60 ml PO QID 09/23/19 Levothyroxine Sodium [Levo-T] 137 mcg PO DAILY 09/23/19 Potassium Chloride [Klor-Con M20] 20 meq PO DAILY 09/23/19 Spironolactone [Aldactone 25 mg Tablet] 25 mg PO DAILY 09/23/19 Ursodiol [Actigall 300 mg Capsule] 300 mg PO BID 09/23/19 Levothyroxine Sodium [Unithroid] 100 mcg PO DAILY 01/29/20 Midodrine HCl [Proamatine 5 mg Tablet] 5 mg PO TID 01/29/20 Zinc Sulfate [Zinc-220] 220 mg PO DAILY 01/29/20 Furosemide [Lasix 40 mg Tablet] 40 mg PO BID #0 tablet 01/31/20 Insulin Degludec [Tresiba Flextouch U-200] 10 unit SQ BID #0 01/31/20 Insulin Regular, Human [Humulin R (Reg) Insulin 100 unit/mL] 0 - 12 unit SUBCUT [facility] #0 unit 01/31/20 History of Present Illiness History of Present Illness: Per H&P by Dr. Cano: MAURA CHRIS is a 69 year old female with a history of primary biliary cirrhosis, with portal pulmonary hypertension and diabetes who is brought into the ED on account of change in her mental status. Patient is altered and incoherent, her has left and was unreachable through phone, history is from medical record and ED physician. Per ED physician report, her stated that since yesterday she has not been herself. She has been confused and was unable to recognize her . On the day of presentation patient's mental status continued to get worse and she was unable to get out of bed which is unusual for her and was brought in to the ED for further assessment and care. During exam patient continuously states " I am okay" and denies pain anywhere. Hospital Course Hospital Course: (1) Hepatic encephalopathy Resolved; now A&Ox4, conversational, socially appropriate, and at baseline mentation per patient's . Patient presented with altered mental status likely secondary to hepatic encephalopathy(grade 3); though with multiple episodes of hypoglycemia which could certainly have precipitated her AMS. Has no focal neurologic deficit, no fever, leukocytosis No clear precipitating factor is identified, H&H is around baseline, UA was negative, chest x-ray showed bilateral effusion which is not new Ammonia level was within the normal limit EEG reveals global slowing but no evidence of seizure like activity. Patient was admitted to medical floor. She is now awake oriented to her baseline. Tolerated p.o. intake. Have resumed home dose medications. Held spironolactone and Lasix while providing gentle IVF for correction of mild dehydration. Resumed at discharge. Supportive care/safety precautions. (2) Hypoglycemic encephalopathy Resolved. Contributed to underlying hepatic encephalopathy. DM management as below. (3) Bilateral pleural effusion Due to cirrhosis and resulting portal pulmonary hypertension Chest x-ray showed chronic bilateral pleural effusions. No acute infiltrates or valerio pulmonary edema Continue intranasal oxygen; patient utilizes home O2. (4) Diabetes mellitus Hemoglobin A1c 5.2%. Patient with multiple episodes of hypoglycemia. Given her age, end-stage liver disease, and life expectancy of less than 10 years, it would be acceptable to utilize a goal A1c of less than 8.5.%. Therefore, will decrease long-acting insulins and adjust her sliding scale dosing. Liberalize diet. Discussed with patient and family; understand and agree w/ recommendations. (5) Portopulmonary hypertension Continue intranasal oxygen Resume sildenafil, Lasix and spironolactone (6) Primary biliary cirrhosis Will resume ursodiol. (7) Advance care planning Patient and were present. Discussed her chronic liver failure and disease progression. Advised that she was reaching the limitations of what medicine could offer; at this time we are only able to provide interventions to delay the progression but ultimately she will succumb to her disease. We discussed that as her disease progresses, she will likely experience frequent episodes of altered mentation that will eventually become uncorrectable. Discussed goals of care. Reviewed Palliative care in detail. Patient defers all answers to her . He declines Palliative Care; states they have used them in the past and did not find them helpful. No interest in hospice. Patient to remain FULL CODE. (8) Dehydration Resolved; now with moist mucous membranes and improved skin appearance. BUN has decreased. Weight up ~5 kg. Received gentle IV fluids. Continue to encourage p.o fluids Slight dose reduction in patient's furosemide. Physical Exam Vital Signs: Temp Pulse Resp BP Pulse Ox 97.8 F 102 H 18 100/44 L 90 L 01/31/20 14:08 01/31/20 14:08 01/31/20 14:08 01/31/20 14:08 01/31/20 14:08 Intake & Output 01/30/20 01/31/20 02/01/20 06:59 06:59 06:59 Intake Total 1939 170 Balance 1939 170 Weight 52.9 kg 54.7 kg General appearance: PRESENT: no acute distress, cooperative, thin, well- developed, other - Frail, chronically ill-appearing Head exam: PRESENT: atraumatic, normocephalic Eye exam: PRESENT: conjunctiva pink, EOMI, PERRLA. ABSENT: scleral icterus Mouth exam: PRESENT: moist, tongue midline Respiratory exam: PRESENT: clear to auscultation josh, symmetrical, unlabored, other - Supplemental oxygen by nasal cannula. ABSENT: rales, rhonchi, wheezes Cardiovascular exam: PRESENT: RRR. ABSENT: diastolic murmur, rubs, systolic murmur Pulses: PRESENT: normal dorsalis pedis pul Vascular exam: PRESENT: normal capillary refill GI/Abdominal exam: PRESENT: normal bowel sounds, soft. ABSENT: distended, guarding, mass, organolmegaly, rebound, tenderness Rectal exam: PRESENT: deferred Extremities exam: PRESENT: full ROM. ABSENT: calf tenderness, clubbing, pedal edema Neurological exam: PRESENT: alert, awake, oriented to person, oriented to place, oriented to time, oriented to situation, CN II-XII grossly intact. ABSENT: motor sensory deficit Psychiatric exam: PRESENT: appropriate affect, normal mood. ABSENT: homicidal ideation, suicidal ideation Skin exam: PRESENT: dry, intact, warm. ABSENT: cyanosis, rash Results Laboratory Results: WBC 4.8 10^3/uL (4.0-10.5) 01/31/20 04:50 RBC 2.63 10^6/uL (3.72-5.28) L 01/31/20 04:50 Hgb 8.9 g/dL (12.0-15.5) L 01/31/20 04:50 Hct 26.1 % (36.0-47.0) L 01/31/20 04:50 MCV 99 fl (80-97) H 01/31/20 04:50 MCH 34.0 pg (27.0-33.4) H 01/31/20 04:50 MCHC 34.3 g/dL (32.0-36.0) 01/31/20 04:50 RDW 17.9 % (11.5-14.0) H 01/31/20 04:50 Plt Count 85 10^3/uL (150-450) L 01/31/20 04:50 Lymph % (Auto) 27.2 % (13-45) 01/29/20 05:20 [place] % (Auto) 10.2 % (3-13) 01/29/20 05:20 Eos % (Auto) 3.7 % (0-6) 01/29/20 05:20 Baso % (Auto) 0.7 % (0-2) 01/29/20 05:20 Absolute Neuts (auto) 1.9 10^3/uL (1.7-8.2) 01/29/20 05:20 Absolute Lymphs (auto) 0.9 10^3/uL (0.5-4.7) 01/29/20 05:20 Absolute Monos (auto) 0.3 10^3/uL (0.1-1.4) 01/29/20 05:20 Absolute Eos (auto) 0.1 10^3/uL (0.0-0.6) 01/29/20 05:20 Absolute Basos (auto) 0.0 10^3/uL (0.0-0.2) 01/29/20 05:20 Seg Neutrophils % 58.2 % (42-78) 01/29/20 05:20 Platelet Estimate Cancelled 01/28/20 22:37 PT 15.4 SEC (11.4-15.4) 01/30/20 05:25 INR 1.20 01/30/20 05:25 VBG pH 7.40 (7.30-7.42) 01/28/20 19:55 VBG pCO2 47.0 mmHg (35-63) 01/28/20 19:55 VBG HCO3 28.7 mmol/L (20-32) 01/28/20 19:55 VBG Base Excess 3.5 mmol/L 01/28/20 19:55 Sodium 138.2 mmol/L (137-145) 01/31/20 04:50 Potassium 4.0 mmol/L (3.6-5.0) 01/31/20 04:50 Chloride 105 mmol/L (98-107) 01/31/20 04:50 Carbon Dioxide 25 mmol/L (22-30) 01/31/20 04:50 Anion Gap 8 (5-19) 01/31/20 04:50 BUN 26 mg/dL (7-20) H 01/31/20 04:50 Creatinine 0.85 mg/dL (0.52-1.25) 01/31/20 04:50 Est GFR ( Amer) > 60 (>60) 01/31/20 04:50 Est GFR (MDRD) Non-Af > 60 (>60) 01/31/20 04:50 Glucose 244 mg/dL (75-110) H 01/31/20 04:50 POC Glucose 327 mg/dL (70-110) H 01/31/20 11:43 Hemoglobin A1c % 5.2 % (4.7-6.0) 01/30/20 05:25 Lactic Acid 1.3 mmol/L (0.7-2.1) 01/28/20 19:55 Calcium 7.8 mg/dL (8.4-10.2) L 01/31/20 04:50 Magnesium 2.1 mg/dL (1.6-2.3) 01/28/20 17:12 Total Bilirubin 1.3 mg/dL (0.2-1.3) 01/30/20 05:25 Direct Bilirubin 0.5 mg/dL (0.0-0.4) H 01/30/20 05:25 Neonat Total Bilirubin Not Reportable 01/30/20 05:25 Neonat Direct Bilirubin Not Reportable 01/30/20 05:25 Neonat Indirect Bili Not Reportable 01/30/20 05:25 AST 24 U/L (14-36) 01/30/20 05:25 ALT 13 U/L (<35) 01/30/20 05:25 Alkaline Phosphatase 132 U/L (38-126) H 01/30/20 05:25 Ammonia 27.8 umol/L (9-33) 01/28/20 17:12 C-Reactive Protein 13.0 mg/L (<10.0) H 01/28/20 17:12 Total Protein 6.1 g/dL (6.3-8.2) L 01/30/20 05:25 Albumin 2.6 g/dL (3.5-5.0) L 01/30/20 05:25 TSH 2.65 uIU/mL (0.47-4.68) 01/28/20 17:12 Urine Color YELLOW 01/28/20 18:45 Urine Appearance CLEAR 01/28/20 18:45 Urine pH 6.0 (5.0-9.0) 01/28/20 18:45 Ur Specific [place] 1.014 01/28/20 18:45 Urine Protein NEGATIVE mg/dL (NEGATIVE) 01/28/20 18:45 Urine Glucose (UA) NEGATIVE mg/dL (NEGATIVE) 01/28/20 18:45 Urine Ketones NEGATIVE mg/dL (NEGATIVE) 01/28/20 18:45 Urine Blood NEGATIVE (NEGATIVE) 01/28/20 18:45 Urine Nitrite NEGATIVE (NEGATIVE) 01/28/20 18:45 Urine Bilirubin NEGATIVE (NEGATIVE) 01/28/20 18:45 Urine Urobilinogen NEGATIVE mg/dL (<2.0) 01/28/20 18:45 Ur Leukocyte Esterase NEGATIVE (NEGATIVE) 01/28/20 18:45 Urine WBC (Auto) 1 /HPF 01/28/20 18:45 Urine RBC (Auto) 5 /HPF 01/28/20 18:45 U Hyaline Cast (Auto) 17 /LPF 01/28/20 18:45 Urine Bacteria (Auto) TRACE /HPF 01/28/20 18:45 Urine Mucus (Auto) RARE /LPF 01/28/20 18:45 Urine Ascorbic Acid 40 (NEGATIVE) H 01/28/20 18:45 Stl C. Difficile GDH Ag NEGATIVE (NEGATIVE) 01/29/20 00:52 Stl C.difficile Tox A&B NEGATIVE (NEGATIVE) 01/29/20 00:52 Slides for Path Review Cancelled 01/28/20 22:37 Impressions: Chest X-Ray 01/28/20 17:37 IMPRESSION: Cardiomegaly with bilateral pleural effusions but no valerio pulmonary edema. Head CT 01/28/20 18:08 IMPRESSION: Right maxillary sinus disease with no acute intracranial imaging findings. EVIDENCE OF ACUTE STROKE: NO. Chest X-Ray 01/30/20 00:00 IMPRESSION: Cardiomegaly. Cannot exclude mild pulmonary edema. Increased bilateral pleural effusions. Plan Plan of Treatment: Patient is discharged home, in stable condition, into the care of family members with resumption of home health orders. She is advised follow-up with her primary care provider within 1 week. They have been instructed to reduce her long-acting insulin from 12 units to 10 units twice daily and to use the nebulized sliding scale insulin regiment to reduce/prevent further episodes of hypoglycemia. She is instructed to eat as tolerated. Take medications as prescribed. Return to the emergency department, as needed, for concerning symptoms. Time Spent: Greater than 30 Minutes Stroke Is this a Stroke Patient?: No Acute Heart Failure Is this a Heart Failure Patient?: No
== END 2020-01-31 14:39 | disposition home health service (06) ==
LOC: ER 15:21 → EH 01-29 00:52 → INTOOBSV 01-29 00:52 → 4W 01-29 01:40
PROVIDERS: ADMIT Student in an Organized Health Care Education/Training Program; ATTEND Registered Nurse
DX: K72.90 Hepatic failure, unspecified without coma (principal); E11.649 Type 2 diabetes mellitus with hypoglycemia without coma; I27.20 Pulmonary hypertension, unspecified; D64.9 Anemia, unspecified; K74.3 Primary biliary cirrhosis; E86.0 Dehydration; J90 Pleural effusion, not elsewhere classified; R41.82 Altered mental status, unspecified; Z79.899 Other long term (current) drug therapy; Z79.4 Long term (current) use of insulin
CPT/HCPCS: 95819 ×2; 93005; 99285; 96361; 96365; 36415 ×4; 87040; 82962 ×3; 82140; 83605; 83735; 84443; 85025 ×2; 85027 ×2; 85610 ×2; 86140; 80048; 80053 ×3; 81001; 83036; 82803; 87324; 87449; 71045 ×2; 70450; 93010; G0378 ×4; J3490; J0295; A9270 ×26; J7030 ×2; J7120; J1815

== ENCOUNTER → 2020-02-03 | Outpatient (CLI) | payer MEDICARE | LOC: OD 15:46 | PROVIDERS: ATTEND Family Medicine Geriatric Medicine | DX: Z79.899 Other long term (current) drug therapy (principal) | CPT/HCPCS: 36415; 82140 ==